=== PATIENT | male | born 1960 | race Caucasian/White ===

== ENCOUNTER 2016-09-13 10:47 | Emergency (ER) | payer MEDICARE, OTHER ==
[2016-09-13] MEDS ORDERED: MORPHINE SULFATE 4 MG/ML SYRINGE IV STA (10:59)
[2016-09-13] MEDS ORDERED: ONDANSETRON 4 MG/2 ML VIAL IVP STA ×2 (10:59→12:24)
[2016-09-13] MEDS ORDERED: SODIUM CHLORIDE 0.9% 1,000 ML IV STA ×2 (10:59)
--- NOTE | 2016-09-13 11:26 | ED ---
General Adult HPI - General Chief complaint: Abdominal Pain Stated complaint: ABDOMINAL PAIN Time Seen by Provider: 09/13/16 10:59 Source: patient, RN notes reviewed, old records reviewed Mode of arrival: ambulatory Limitations: no limitations - History of Present Illness Initial comments: This is a 56-year-old male the ER for evaluation.Patient presents for evaluation of the bowel pain, severe diffuse abdominal pain epigastric about pain. Been on and off for 2-3 days now. Episodic fever and chills. Positive nausea positive vomiting no diarrhea. No travel history no sick contacts. No other family members with similar symptoms. - Related Data Home Medications Medication Instructions Recorded Confirmed Hydrocodone/Acetaminophen [[place] 1 tab PO Q8H PRN 09/13/16 09/13/16 10-325] Venlafaxine HCl [Effexor XR] 75 mg PO DAILY 09/13/16 09/13/16 buPROPion HCL [Wellbutrin XL] 150 mg PO DAILY 09/13/16 09/13/16 Previous Rx's Medication Instructions Recorded ARIPiprazole [Abilify] 10 mg PO HS 30 Days 04/07/15 Mirtazapine [Remeron] 15 mg PO HS 30 Days 04/07/15 Allergies Allergy/AdvReac Type Severity Reaction Status Date / Time No Known Allergies Allergy Verified 09/13/16 11:17 Review of Systems ROS Statement: Those systems with pertinent positive or pertinent negative responses have been documented in the HPI. ROS Other: All systems not noted in ROS Statement are negative. Past Medical History Past Medical History: No Reported History History of Any Multi-Drug Resistant Organisms: None Reported Past Surgical History: Orthopedic Surgery Past Psychological History: Anxiety, Depression Smoking Status: Current every day smoker General Exam Limitations: no limitations General appearance: alert, in no apparent distress Head exam: Present: atraumatic, normocephalic, normal inspection Eye exam: Present: normal appearance, PERRL, EOMI. Absent: scleral icterus, conjunctival injection, periorbital swelling ENT exam: Present: normal exam, mucous membranes moist Neck exam: Present: normal inspection. Absent: tenderness, meningismus, lymphadenopathy Respiratory exam: Present: normal lung sounds bilaterally. Absent: respiratory distress, wheezes, rales, rhonchi, stridor Cardiovascular Exam: Present: regular rate, normal rhythm, normal heart sounds. Absent: systolic murmur, diastolic murmur, rubs, gallop, clicks GI/Abdominal exam: Present: soft, normal bowel sounds. Absent: distended, tenderness, guarding, rebound, rigid Extremities exam: Present: normal inspection, full ROM, normal capillary refill. Absent: tenderness, pedal edema, joint swelling, calf tenderness Back exam: Present: normal inspection Neurological exam: Present: alert, oriented X3, CN II-XII intact Psychiatric exam: Present: normal affect, normal mood Skin exam: Present: warm, dry, intact, normal color. Absent: rash Course Vital Signs 09/13/16 09/13/16 09/13/16 10:50 11:33 12:15 Temperature 97.4 F L 97.0 F L Pulse Rate 52 L 51 L 52 L Respiratory 20 16 18 Rate Blood Pressure 180/100 128/95 184/75 O2 Sat by Pulse 99 98 98 Oximetry 09/13/16 09/13/16 09/13/16 12:34 13:14 14:22 Temperature 97.8 F 98.2 F Pulse Rate 61 62 72 Respiratory 16 18 18 Rate Blood Pressure 140/78 97/56 96/51 O2 Sat by Pulse 95 95 95 Oximetry - Reevaluation(s) Reevaluation #1: 09/13/16 15:22 Patient's abdominal pain is at this time resolved Medical Decision Making - Medical Decision Making 56-year-old ER for evaluation. Patient was afebrile pain, dull pain nauseous improved at this time, CT abdomen and pelvis is negative for acute disease and patient can be discharged home - Lab Data Result diagrams: 09/13/16 11:05 09/13/16 11:05 Lab Results 09/13/16 09/13/16 09/13/16 Range/Units 11:05 11:05 11:05 WBC 9.0 (3.8-10.6) k/uL RBC 5.83 (4.30-5.90) m/uL Hgb 17.9 H (13.0-17.5) gm/dL Hct 50.6 (39.0-53.0) % MCV 86.8 (80.0-100.0) fL MCH 30.7 (25.0-35.0) pg MCHC 35.4 (31.0-37.0) g/dL RDW 12.8 (11.5-15.5) % Plt Count 204 (150-450) k/uL Neutrophils % 74 % Lymphocytes % 21 % Monocytes % 4 % Eosinophils % 0 % Basophils % 0 % Neutrophils # 6.7 (1.3-7.7) k/uL Lymphocytes # 1.9 (1.0-4.8) k/uL Monocytes # 0.4 (0-1.0) k/uL Eosinophils # 0.0 (0-0.7) k/uL Basophils # 0.0 (0-0.2) k/uL Sodium 145 (137-145) mmol/L Potassium 4.0 (3.5-5.1) mmol/L Chloride 105 (98-107) mmol/L Carbon Dioxide 25 (22-30) mmol/L Anion Gap 15 mmol/L BUN 19 (9-20) mg/dL Creatinine 1.15 (0.66-1.25) mg/dL Est GFR (MDRD) Af Amer >60 (>60 ml/min/1.73 sqM) Est GFR (MDRD) Non-Af >60 (>60 ml/min/1.73 sqM) Glucose 109 H (74-99) mg/dL Plasma Lactic Acid Rakesh (0.7-2.0) mmol/L Calcium 9.7 (8.4-10.2) mg/dL Total Bilirubin 1.0 (0.2-1.3) mg/dL AST 26 (17-59) U/L ALT 35 (21-72) U/L Alkaline Phosphatase 88 (38-126) U/L Total Creatine Kinase 205 H (55-170) U/L CK-MB (CK-2) 2.2 (0.0-2.4) ng/mL CK-MB (CK-2) Rel Index 1.1 Troponin I <0.012 (0.000-0.034) ng/mL Total Protein 7.9 (6.3-8.2) g/dL Albumin 4.9 (3.5-5.0) g/dL Amylase 44 (30-110) U/L Lipase 93 (23-300) U/L Urine Color Urine Appearance (Clear) Urine pH (5.0-8.0) Ur Specific [place] (1.001-1.035) Urine Protein (Negative) Urine Glucose (UA) (Negative) Urine Ketones (Negative) Urine Blood (Negative) Urine Nitrite (Negative) Urine Bilirubin (Negative) Urine Urobilinogen (<2.0) mg/dL Ur Leukocyte Esterase (Negative) Urine RBC (0-5) /hpf Urine WBC (0-5) /hpf Urine Mucus (None) /hpf Urine Opiates Screen (NotDetected) Ur Oxycodone Screen (NotDetected) Urine Methadone Screen (NotDetected) Ur Propoxyphene Screen (NotDetected) Ur Barbiturates Screen (NotDetected) U Tricyclic Antidepress (NotDetected) Ur Phencyclidine Scrn (NotDetected) Ur Amphetamines Screen (NotDetected) U Methamphetamines Scrn (NotDetected) U Benzodiazepines Scrn (NotDetected) Urine Cocaine Screen (NotDetected) U Marijuana (THC) Screen (NotDetected) 09/13/16 09/13/16 Range/Units 11:05 13:41 WBC (3.8-10.6) k/uL RBC (4.30-5.90) m/uL Hgb (13.0-17.5) gm/dL Hct (39.0-53.0) % MCV (80.0-100.0) fL MCH (25.0-35.0) pg MCHC (31.0-37.0) g/dL RDW (11.5-15.5) % Plt Count (150-450) k/uL Neutrophils % % Lymphocytes % % Monocytes % % Eosinophils % % Basophils % % Neutrophils # (1.3-7.7) k/uL Lymphocytes # (1.0-4.8) k/uL Monocytes # (0-1.0) k/uL Eosinophils # (0-0.7) k/uL Basophils # (0-0.2) k/uL Sodium (137-145) mmol/L Potassium (3.5-5.1) mmol/L Chloride (98-107) mmol/L Carbon Dioxide (22-30) mmol/L Anion Gap mmol/L BUN (9-20) mg/dL Creatinine (0.66-1.25) mg/dL Est GFR (MDRD) Af Amer (>60 ml/min/1.73 sqM) Est GFR (MDRD) Non-Af (>60 ml/min/1.73 sqM) Glucose (74-99) mg/dL Plasma Lactic Acid Rakesh 2.0 (0.7-2.0) mmol/L Calcium (8.4-10.2) mg/dL Total Bilirubin (0.2-1.3) mg/dL AST (17-59) U/L ALT (21-72) U/L Alkaline Phosphatase (38-126) U/L Total Creatine Kinase (55-170) U/L CK-MB (CK-2) (0.0-2.4) ng/mL CK-MB (CK-2) Rel Index Troponin I (0.000-0.034) ng/mL Total Protein (6.3-8.2) g/dL Albumin (3.5-5.0) g/dL Amylase (30-110) U/L Lipase (23-300) U/L Urine Color Yellow Urine Appearance Clear (Clear) Urine pH 6.5 (5.0-8.0) Ur Specific [place] 1.026 (1.001-1.035) Urine Protein 1+ H (Negative) Urine Glucose (UA) Negative (Negative) Urine Ketones 2+ H (Negative) Urine Blood Negative (Negative) Urine Nitrite Negative (Negative) Urine Bilirubin Negative (Negative) Urine Urobilinogen <2.0 (<2.0) mg/dL Ur Leukocyte Esterase Negative (Negative) Urine RBC <1 (0-5) /hpf Urine WBC 1 (0-5) /hpf Urine Mucus Few H (None) /hpf Urine Opiates Screen Detected H (NotDetected) Ur Oxycodone Screen Not Detected (NotDetected) Urine Methadone Screen Not Detected (NotDetected) Ur Propoxyphene Screen Not Detected (NotDetected) Ur Barbiturates Screen Not Detected (NotDetected) U Tricyclic Antidepress Not Detected (NotDetected) Ur Phencyclidine Scrn Not Detected (NotDetected) Ur Amphetamines Screen Not Detected (NotDetected) U Methamphetamines Scrn Not Detected (NotDetected) U Benzodiazepines Scrn Not Detected (NotDetected) Urine Cocaine Screen Detected H (NotDetected) U Marijuana (THC) Screen Detected H (NotDetected) - Radiology Data Radiology results: report reviewed (CT abdomen and pelvis is negative for acute disease), image reviewed Disposition Clinical Impression: Abdominal pain Disposition: HOME SELF-CARE Condition: Good Instructions: Abdominal Pain (ED) Referrals: Rajan Mackey MD [Primary Care Provider] - 1-2 days
--- NOTE | 2016-09-13 11:53 | XR ---
EXAMINATION TYPE: XR KUB DATE OF EXAM: 09/13/2016 11:42 AM CLINICAL HISTORY: Upper abdominal pain TECHNIQUE: 2 upright KUB images of the abdomen are obtained. COMPARISON: Abdominal x-ray and CT abdomen and pelvis April 26, 2013. FINDINGS: Scattered gas is seen in non-distended small bowel loops. Gas and fecal material is seen in non-distended colon. A few scattered pelvic phleboliths are present. No pneumoperitoneum is seen. Kristie ng bases are clear. Visualized osseous structures are intact. IMPRESSION: Overall nonobstructive bowel gas pattern.
[2016-09-13 11:54] LABS: Basophils % (A) 0 %; CH 31.3; CHCM 36.2; Eosinophils % (A) 0 %; HCT 50.6 % (39.0-53.0); HDW 2.65; HGB 17.9 gm/dL (13.0-17.5); Luc # (Auto) 0.12; Luc % (Auto) 1; Lymphocytes # (A) 1.9 k/uL (1.0-4.8); Lymphocytes % (A) 21 %; MCH 30.7 pg (25.0-35.0); MCHC 35.4 g/dL (31.0-37.0); MCV 86.8 fL (80.0-100.0); Mean Platelet Volume 7.4; Monocytes # (A) 0.4 k/uL (0-1.0); Monocytes % (A) 4 %; Neutrophils # (A) 6.7 k/uL (1.3-7.7); Neutrophils % (A) 74 %; RBC 5.83 m/uL (4.30-5.90); RDW 12.8 % (11.5-15.5); WBC (Perox) 8.76
[2016-09-13 12:00] LABS: ALT 35 U/L (21-72); AST 26 U/L (17-59); Alkaline Phosphatase 88 U/L (38-126); Amylase 44 U/L (30-110); Anion Gap 15 mmol/L; Blood Urea Nitrogen 19 mg/dL (9-20); Calcium 9.7 mg/dL (8.4-10.2); Carbon Dioxide 25 mmol/L (22-30); Chloride 105 mmol/L (98-107); Glucose 109 mg/dL (74-99); Non-African American GFR(MDRD) >60 (>60 ml/min/1.73 sqM); Sodium 145 mmol/L (137-145); Total Protein 7.9 g/dL (6.3-8.2)
[2016-09-13 12:12] LABS: Creatine Kinase 205 U/L (55-170)
[2016-09-13 12:23] LABS: Creatine Kinase MB 2.2 ng/mL (0.0-2.4); Troponin I <0.012 ng/mL (0.000-0.034)
[2016-09-13] MEDS ORDERED: RX INFO: IV CONTRAST WAS GIVEN 1 EACH MISC MISCELLANE PRN (12:24)
[2016-09-13] MEDS ORDERED: MORPHINE SULFATE 4 MG/ML SYRINGE IVP STA (12:24)
[2016-09-13] MEDS ORDERED: LORazepam 2 MG/ML SYRINGE IV STA (12:24)
[2016-09-13 13:15] VITALS: RESP 18
[2016-09-13 14:11] LABS: Appearance,Urine Clear (Clear); Bilirubin,Urine Negative (Negative); Glucose,Urine (UA) Negative (Negative); Ketones,Urine 2+ (Negative); Leukocyte Esterase,Urine Negative (Negative); Mucus,Urine Few /hpf; Nitrite,Urine Negative (Negative); PH, Urine 6.5 (5.0-8.0); Particle Count 4171; Protein,Urine 1+ (Negative); RBC,Urine <1 /hpf (0-5); Specific Gravity,Urine 1.026 (1.001-1.035); UA Billing (MACRO vs. MICRO) MICRO; Urobilinogen,Urine <2.0 mg/dL (<2.0); WBC,Urine 1 /hpf (0-5)
[2016-09-13 14:23] VITALS: TEMP 98.2
--- NOTE | 2016-09-13 15:14 | CT ---
EXAMINATION TYPE: CT abdomen pelvis w con DATE OF EXAM: 09/13/2016 COMPARISON: 04/26/2013 HISTORY: Epigastric pain with nausea CT DLP: 941.7 mGycm Automated exposure control for dose reduction was used. CONTRAST: CT scan of the abdomen pelvis is performed with IV Contrast, patient injected with 100 mL of Omnipaqu e 300. FINDINGS- LUNG BASES-subsegmental linear changes are most compatible with scar or atelectasis.. LIVER/GB- No gross abnormality is appreciated. PANCREAS- No gross abnormality is seen. SPLEEN- No gross abnormality is seen. ADRENALS- No gross abnormality is seen. KIDNEYS/BLADDER- no hydronephrosis nephrolithiasis or renal mass. BOWEL- no bowel dilatation. Normal appendix. Occasional diverticula noted. Mild wall thickening the distal sigmoid colon. Small hiatal hernia. LYMPH NODES- No greater than 1cm abdominal or pelvic lymph nodes are appreciated. OSSEOUS STRUCTURES-hypertrophic and degenerative change of the spine.. OTHER- atherosclerotic change of the vasculature. No evidence of aortic aneurysm. Mesenteric vascula ture enhances normally. There is a small amount of free fluid in the pelvis. IMPRESSION- 1. Diverticulosis of the sigmoid colon with trace amount of fluid in the pelvis. Wall is thickened wh ich may be on the basis of incomplete distention rather than a mild colitis or diverticulitis. Correl ate clinically.
[2016-09-13 16:14] VITALS: BP 108/57; PULSE 73
== END 2016-09-13 16:15 | disposition home or self-care (01) ==
LOC: EC 10:47
DX: R10.13 Epigastric pain (principal); R11.2 Nausea with vomiting, unspecified; R10.84 Generalized abdominal pain; R50.9 Fever, unspecified; F32.9 Major depressive disorder, single episode, unspecified; F41.9 Anxiety disorder, unspecified; F17.200 Nicotine dependence, unspecified, uncomplicated; Z79.899 Other long term (current) drug therapy
CPT/HCPCS: 36415; 80053; 82150; 82550; 82553; 83605; 83690; 84484; 85025; 81001; 80306; 87086; 74000; 74177; 99285; 96374; 96375 ×2; 96376 ×2; 96361 ×5; J2060; J2270; J2405; Q9967

== ENCOUNTER 2016-12-29 09:09 | Emergency (ER) | payer MEDICARE, OTHER ==
[2016-12-29] MEDS ORDERED: PANTOPRAZOLE 40 MG/10 ML VIAL IVP STA (09:44)
[2016-12-29] MEDS ORDERED: METOCLOPRAMIDE 5 MG/ML 2 ML VIAL IVP STA (09:44)
[2016-12-29] MEDS ORDERED: HYDROmorphone 1 MG/ML 1 ML SYRINGE IVP STA (09:44)
[2016-12-29] MEDS ORDERED: RX INFO: IV CONTRAST WAS GIVEN 1 EACH MISC MISCELLANE PRN (09:44)
[2016-12-29] MEDS ORDERED: SODIUM CHLORIDE 0.9% 1,000 ML IV STA ×2 (09:44→12:34)
--- NOTE | 2016-12-29 09:51 | ED ---
General Adult HPI - General Chief complaint: Abdominal Pain Stated complaint: Epigastric pain Time Seen by Provider: 12/29/16 09:35 Source: patient, family, RN notes reviewed Mode of arrival: wheelchair Limitations: no limitations - History of Present Illness Initial comments: Patient is a pleasant 6-year-old male presenting to the emergency Department with abdominal discomfort. Onset of symptoms was 3 days ago. Patient had a couple episodes of diarrhea however none since that time. Patient has nausea without vomiting. Patient has discomfort mostly in the epigastric region. There is some discomfort in the lower chest as well. Discomfort is moderate to severe. Patient states there may be some radiation towards the back. Patient questions if he has a stomach flu. - Related Data Home Medications Medication Instructions Recorded Confirmed Hydrocodone/Acetaminophen [[place] 1 tab PO Q8H PRN 09/13/16 12/29/16 10-325] Venlafaxine HCl [Effexor XR] 75 mg PO DAILY 09/13/16 12/29/16 buPROPion HCL [Wellbutrin XL] 150 mg PO DAILY 09/13/16 12/29/16 Previous Rx's Medication Instructions Recorded ARIPiprazole [Abilify] 10 mg PO HS 30 Days 04/07/15 Allergies Allergy/AdvReac Type Severity Reaction Status Date / Time No Known Allergies Allergy Verified 12/29/16 09:52 Review of Systems ROS Statement: Those systems with pertinent positive or pertinent negative responses have been documented in the HPI. ROS Other: All systems not noted in ROS Statement are negative. Constitutional: Denies: fever, chills Eyes: Denies: eye pain ENT: Denies: ear pain Respiratory: Denies: cough, dyspnea Cardiovascular: Reports: chest pain Endocrine: Denies: fatigue Gastrointestinal: Reports: abdominal pain, nausea, diarrhea. Denies: vomiting, constipation Genitourinary: Denies: dysuria Musculoskeletal: Denies: arthralgia Skin: Denies: rash Neurological: Denies: weakness Past Medical History Past Medical History: No Reported History Additional Past Medical History / Comment(s): chronic back pain History of Any Multi-Drug Resistant Organisms: None Reported Past Surgical History: Orthopedic Surgery Past Psychological History: Anxiety, Depression Smoking Status: Current every day smoker Past Alcohol Use History: None Reported Past Drug Use History: None Reported General Exam Limitations: no limitations General appearance: alert Head exam: Present: atraumatic Eye exam: Present: normal appearance, PERRL ENT exam: Present: normal oropharynx Neck exam: Present: normal inspection Respiratory exam: Present: normal lung sounds bilaterally Cardiovascular Exam: Present: regular rate, normal rhythm Expanded Peripheral pulses: 2+: Dorsalis Pedis (R), Dorsalis Pedis (L) GI/Abdominal exam: Present: soft, tenderness (Moderate epigastric tenderness to palpation. Mild diffuse tenderness.), normal bowel sounds. Absent: distended, guarding, rebound, rigid, pulsatile mass Extremities exam: Present: normal inspection. Absent: pedal edema, calf tenderness Back exam: Present: normal inspection. Absent: tenderness Neurological exam: Present: alert Psychiatric exam: Present: normal affect, normal mood Skin exam: Present: normal color Course Vital Signs 12/29/16 12/29/16 09:16 11:46 Temperature 97.5 F L Pulse Rate 54 L 64 Respiratory 20 17 Rate Blood Pressure 154/76 92/54 O2 Sat by Pulse 100 Oximetry EKG Findings - EKG Comments: EKG Findings:: Sinus bradycardia 52. GA 136. QRS 84. QT 462. QTC 429. Normal axis. Normal QRS. No acute ST change. Medical Decision Making - Medical Decision Making Onset of symptoms was 3 days ago. Patient clinically has symptoms consistent with CT findings of gastritis. Patient feels significantly better and is resting comfortably in bed. Patient will be provided further IV hydration. Case discussed in detail with Dr. Hoffmann who is familiar with this patient and would like to follow-up with the patient tomorrow if patient can be discharged. - Lab Data Result diagrams: 12/29/16 09:37 12/29/16 09:37 Lab Results 12/29/16 12/29/16 12/29/16 Range/Units 09:37 09:37 09:37 WBC 8.4 (3.8-10.6) k/uL RBC 5.73 (4.30-5.90) m/uL Hgb 17.5 (13.0-17.5) gm/dL Hct 51.2 (39.0-53.0) % MCV 89.4 (80.0-100.0) fL MCH 30.6 (25.0-35.0) pg MCHC 34.2 (31.0-37.0) g/dL RDW 13.0 (11.5-15.5) % Plt Count 239 (150-450) k/uL Neutrophils % 69 % Lymphocytes % 24 % Monocytes % 5 % Eosinophils % 0 % Basophils % 0 % Neutrophils # 5.8 (1.3-7.7) k/uL Lymphocytes # 2.0 (1.0-4.8) k/uL Monocytes # 0.4 (0-1.0) k/uL Eosinophils # 0.0 (0-0.7) k/uL Basophils # 0.0 (0-0.2) k/uL PT (9.0-12.0) sec INR (<1.2) APTT (22.0-30.0) sec Sodium 142 (137-145) mmol/L Potassium 4.9 (3.5-5.1) mmol/L Chloride 104 (98-107) mmol/L Carbon Dioxide 24 (22-30) mmol/L Anion Gap 14 mmol/L BUN 16 (9-20) mg/dL Creatinine 1.13 (0.66-1.25) mg/dL Est GFR (MDRD) Af Amer >60 (>60 ml/min/1.73 sqM) Est GFR (MDRD) Non-Af >60 (>60 ml/min/1.73 sqM) Glucose 109 H (74-99) mg/dL Plasma Lactic Acid Rakesh (0.7-2.0) mmol/L Calcium 9.9 (8.4-10.2) mg/dL Total Bilirubin 1.1 (0.2-1.3) mg/dL AST 27 (17-59) U/L ALT 45 (21-72) U/L Alkaline Phosphatase 89 (38-126) U/L Total Creatine Kinase 310 H (55-170) U/L CK-MB (CK-2) 2.8 H* (0.0-2.4) ng/mL CK-MB (CK-2) Rel Index 0.9 Troponin I <0.012 (0.000-0.034) ng/mL Total Protein 7.8 (6.3-8.2) g/dL Albumin 4.8 (3.5-5.0) g/dL Amylase 31 (30-110) U/L Lipase 92 (23-300) U/L Urine Color Urine Appearance (Clear) Urine pH (5.0-8.0) Ur Specific [place] (1.001-1.035) Urine Protein (Negative) Urine Glucose (UA) (Negative) Urine Ketones (Negative) Urine Blood (Negative) Urine Nitrite (Negative) Urine Bilirubin (Negative) Urine Urobilinogen (<2.0) mg/dL Ur Leukocyte Esterase (Negative) Urine RBC (0-5) /hpf Urine WBC (0-5) /hpf Urine Mucus (None) /hpf 12/29/16 12/29/16 12/29/16 Range/Units 09:37 10:00 10:28 WBC (3.8-10.6) k/uL RBC (4.30-5.90) m/uL Hgb (13.0-17.5) gm/dL Hct (39.0-53.0) % MCV (80.0-100.0) fL MCH (25.0-35.0) pg MCHC (31.0-37.0) g/dL RDW (11.5-15.5) % Plt Count (150-450) k/uL Neutrophils % % Lymphocytes % % Monocytes % % Eosinophils % % Basophils % % Neutrophils # (1.3-7.7) k/uL Lymphocytes # (1.0-4.8) k/uL Monocytes # (0-1.0) k/uL Eosinophils # (0-0.7) k/uL Basophils # (0-0.2) k/uL PT 10.5 (9.0-12.0) sec INR 1.0 (<1.2) APTT 22.7 (22.0-30.0) sec Sodium (137-145) mmol/L Potassium (3.5-5.1) mmol/L Chloride (98-107) mmol/L Carbon Dioxide (22-30) mmol/L Anion Gap mmol/L BUN (9-20) mg/dL Creatinine (0.66-1.25) mg/dL Est GFR (MDRD) Af Amer (>60 ml/min/1.73 sqM) Est GFR (MDRD) Non-Af (>60 ml/min/1.73 sqM) Glucose (74-99) mg/dL Plasma Lactic Acid Rakesh 2.3 H* (0.7-2.0) mmol/L Calcium (8.4-10.2) mg/dL Total Bilirubin (0.2-1.3) mg/dL AST (17-59) U/L ALT (21-72) U/L Alkaline Phosphatase (38-126) U/L Total Creatine Kinase (55-170) U/L CK-MB (CK-2) (0.0-2.4) ng/mL CK-MB (CK-2) Rel Index Troponin I (0.000-0.034) ng/mL Total Protein (6.3-8.2) g/dL Albumin (3.5-5.0) g/dL Amylase (30-110) U/L Lipase (23-300) U/L Urine Color Yellow Urine Appearance Clear (Clear) Urine pH 7.0 (5.0-8.0) Ur Specific [place] 1.023 (1.001-1.035) Urine Protein 1+ H (Negative) Urine Glucose (UA) Negative (Negative) Urine Ketones 3+ H (Negative) Urine Blood Negative (Negative) Urine Nitrite Negative (Negative) Urine Bilirubin Negative (Negative) Urine Urobilinogen 3.0 (<2.0) mg/dL Ur Leukocyte Esterase Negative (Negative) Urine RBC <1 (0-5) /hpf Urine WBC 2 (0-5) /hpf Urine Mucus Rare H (None) /hpf - Radiology Data Radiology results: report reviewed (Computed tomography scan abdomen pelvis shows diffuse gastric fold thickening correlate for possible gastritis. Some segments of colonic wall thickening. Bladder wall thickening.), image reviewed (Chest x-ray shows no acute process.) Disposition Clinical Impression: Abdominal pain Disposition: HOME SELF-CARE Condition: Stable Instructions: Abdominal Pain (ED) Additional Instructions: Please follow-up with primary care physician in the morning. Return for chest pain, increased abdominal pain, not tolerating fluids, vomiting, worsening symptoms or other concerns. Referrals: Rajan Mackey MD [Primary Care Provider] - 1-2 days Time of Disposition: 13:11
[2016-12-29 10:15] LABS: Basophils % (A) 0 %; CH 31.1; CHCM 34.9; Eosinophils % (A) 0 %; HCT 51.2 % (39.0-53.0); HDW 2.56; HGB 17.5 gm/dL (13.0-17.5); Luc # (Auto) 0.12; Luc % (Auto) 1; Lymphocytes % (A) 24 %; MCH 30.6 pg (25.0-35.0); MCHC 34.2 g/dL (31.0-37.0); MCV 89.4 fL (80.0-100.0); Mean Platelet Volume 7.5; Monocytes # (A) 0.4 k/uL (0-1.0); Monocytes % (A) 5 %; Neutrophils # (A) 5.8 k/uL (1.3-7.7); Neutrophils % (A) 69 %; RBC 5.73 m/uL (4.30-5.90); WBC 8.4 k/uL (3.8-10.6); WBC (Perox) 8.26
[2016-12-29 10:21] LABS: ALT 45 U/L (21-72); AST 27 U/L (17-59); Alkaline Phosphatase 89 U/L (38-126); Amylase 31 U/L (30-110); Anion Gap 14 mmol/L; Blood Urea Nitrogen 16 mg/dL (9-20); Calcium 9.9 mg/dL (8.4-10.2); Carbon Dioxide 24 mmol/L (22-30); Chloride 104 mmol/L (98-107); Glucose 109 mg/dL (74-99); Non-African American GFR(MDRD) >60 (>60 ml/min/1.73 sqM); Potassium 4.9 mmol/L (3.5-5.1); Sodium 142 mmol/L (137-145); Total Bilirubin 1.1 mg/dL (0.2-1.3); Total Protein 7.8 g/dL (6.3-8.2)
[2016-12-29 10:29] LABS: Partial Thromboplastin Time 22.7 sec (22.0-30.0); Prothrombin Time 10.5 sec (9.0-12.0)
[2016-12-29 10:34] LABS: Creatine Kinase 310 U/L (55-170)
[2016-12-29 10:45] LABS: Troponin I <0.012 ng/mL (0.000-0.034)
[2016-12-29 10:54] LABS: Appearance,Urine Clear (Clear); Bilirubin,Urine Negative (Negative); Glucose,Urine (UA) Negative (Negative); Ketones,Urine 3+ (Negative); Leukocyte Esterase,Urine Negative (Negative); Mucus,Urine Rare /hpf; Nitrite,Urine Negative (Negative); Particle Count 2813; Protein,Urine 1+ (Negative); RBC,Urine <1 /hpf (0-5); Specific Gravity,Urine 1.023 (1.001-1.035); UA Billing (MACRO vs. MICRO) MICRO; WBC,Urine 2 /hpf (0-5)
[2016-12-29 11:13] LABS: Creatine Kinase MB 2.8 ng/mL (0.0-2.4)
--- NOTE | 2016-12-29 11:38 | XR ---
EXAMINATION TYPE: XR chest 2V DATE OF EXAM: 12/29/2016 COMPARISON: 06/13/2013 HISTORY: Epigastric pain and vomiting for 2 days TECHNIQUE: Frontal and lateral views of the chest are obtained. FINDINGS: There is no focal air space opacity, pleural effusion, or pneumothorax seen. The cardiac silhouette size is within normal limits. The osseous structures are intact. Minimal degenerative ch anges of thoracic spine are noted. IMPRESSION: No acute cardiopulmonary process.
--- NOTE | 2016-12-29 11:40 | CT ---
EXAMINATION TYPE: CT abdomen pelvis w con DATE OF EXAM: 12/29/2016 COMPARISON: 09/13/2016 HISTORY: 56-year-old male with abdominal pain, vomiting for 3 days TECHNIQUE: Contiguous axial scanning of the abdomen and pelvis following administration of 100 ml Omn ipaque 300 IV contrast. Delayed images through the kidneys and coronal/sagittal reconstructions perf ormed. CT DLP: 1376 mGycm Automated exposure control for dose reduction was used. FINDINGS: The heart is normal size without pericardial effusion. Lung bases clear without pleural effusion. There appears to be mild diffuse gastric fold thickening and hyperemia. No focal liver lesion or biliary ductal dilatation. Portal venous system is patent. Gallbladder, adrenal glands, kidneys, spleen, and pancreas appear within normal limits. A prominent left periaortic lymph node measuring 1 cm, axial image 23 is unchanged suggesting a benig n etiology. Otherwise, no mesenteric or retroperitoneal lymphadenopathy. Retroaortic left renal vein. Mild atherosclerotic calcifications infrarenal abdominal aorta and iliac arteries. No dilated small bowel, free fluid, or free air. Segments of circumferential colonic wall thickening, such as within the proximal transverse colon, axial image 27 and then also at the proximal sigmoid c olon, axial image 58 are noted. Bladder nondistended but shows circumferential wall thickening. Prostate gland mildly prominent at 4. 1 cm wide. No abnormal fluid collection in the pelvis or pelvic lymphadenopathy. Bones: Mild degenerative changes at the hips. Additional degenerative changes mid to lower lumbar spi ne. No osseous destructive process. IMPRESSION: 1. MILD DIFFUSE GASTRIC FOLD THICKENING AND SUBMUCOSAL HYPEREMIA. CORRELATE FOR POSSIBLE GASTRITIS. 2. COUPLE SEGMENTS OF COLONIC WALL THICKENING SUCH IN THE PROXIMAL TRANSVERSE AND PROXIMAL SIGMOID COLON COULD REPRESENT NONSPECIFIC COLITIS. THE PATIENT SHOULD HAVE ROUTINE COLONOSCOPY IF NOT ALREAD Y PERFORMED. 3. CIRCUMFERENTIAL BLADDER WALL THICKENING COULD REPRESENT CHRONIC BLADDER HYPERTROPHY OR CYSTITIS.
[2016-12-29 13:10] VITALS: BP 103/64; PULSE 75; RESP 18; TEMP 98.3
== END 2016-12-29 13:40 | disposition home or self-care (01) ==
LOC: EC 09:09
DX: R10.13 Epigastric pain (principal); K31.89 Other diseases of stomach and duodenum; K63.89 Other specified diseases of intestine; N32.89 Other specified disorders of bladder; R07.89 Other chest pain; R11.0 Nausea; F32.9 Major depressive disorder, single episode, unspecified; F41.9 Anxiety disorder, unspecified; F17.200 Nicotine dependence, unspecified, uncomplicated; Z79.899 Other long term (current) drug therapy
CPT/HCPCS: 99284 ×2; 96374 ×2; 96375 ×3; 96361 ×5; 36415; 93005; 80053; 82150; 82550; 82553; 83605; 83690; 84484; 85025; 85610; 85730; 81001; 71020; 74177; J2765; J1170; Q9967; C9113

== ENCOUNTER → 2017-10-20 | Outpatient (CLI) | payer MEDICARE, OTHER ==
--- NOTE | 2017-10-20 11:48 | NM ---
EXAMINATION TYPE: NM hepatobiliary w EF DATE OF EXAM: 10/20/2017 COMPARISON: NONE HISTORY: Pain TECHNIQUE: After the intravenous administration of 5.2 mCi Tc 99m Mebrofenin hepatobiliary scintigrap hy is performed. Immediate images post injection. FINDINGS: There is satisfactory initial accumulation of tracer by the liver. The gallbladder is visualized wit hin 6 minutes. The small bowel activity is noted within 16 minutes. At one hour 8 ounces of oral en sure plus is given to mimic CCK and gallbladder ejection fraction is calculated at 79 %, in the wilver l range. Therefore there is no scintigraphic evidence of cystic or common bile duct obstruction to s uggest acute cholecystitis or gallbladder dyskinesia. IMPRESSION: Exam is within normal limits.
== END | disposition home or self-care (01) ==
LOC: RADNMMAIN 08:55
PROVIDERS: ATTEND Family Medicine
DX: R10.11 Right upper quadrant pain (principal)
CPT/HCPCS: 78226; A9537

== ENCOUNTER → 2018-04-26 | Outpatient (CLI) | payer MEDICARE, OTHER ==
--- NOTE | 2018-04-26 14:22 | CT ---
EXAMINATION TYPE: CT chest wo con DATE OF EXAM: 04/26/2018 COMPARISON: None HISTORY: hemoptysis CT DLP: 385.1 mGycm, Automated exposure control for dose reduction was used. CONTRAST: Performed injected with 0 mL of Isovue 300. TECHNIQUE: Axial images were obtained at 5 mm thick sections. Reconstructed images are reviewed on [employer] computer in the coronal plane. FINDINGS: Portion of the thyroid visualized is normal. No suspicious lung nodules or focal infiltrates are present. No enlarged mediastinal or hilar adenopathy is evident. The ascending aorta diameter at the level o f the main pulmonary artery is 3.6 cm. The main pulmonary artery diameter at the bifurcation is 2.[address] sections are obtained through the upper abdomen. Abdomen is essentially unremarkable. IMPRESSIONS: 1. Normal Chest CT.
== END | disposition home or self-care (01) ==
LOC: RADCTMAIN 11:08
PROVIDERS: ATTEND Family Medicine
DX: R04.2 Hemoptysis (principal)
CPT/HCPCS: 71250

== ENCOUNTER 2018-08-29 12:14 | Emergency (ER) | payer MEDICARE, OTHER ==
[2018-08-29] MEDS ORDERED: SODIUM CHLORIDE 0.9% 1,000 ML IV STA ×2 (12:41)
[2018-08-29] MEDS ORDERED: ONDANSETRON 4 MG/2 ML VIAL IVP STA (12:41)
[2018-08-29] MEDS ORDERED: HYDROmorphone 0.5 MG/0.5 ML SYRINGE IVP STA (12:41)
--- NOTE | 2018-08-29 12:47 | ED ---
General Adult HPI - General Chief complaint: Nausea/Vomiting/Diarrhea Stated complaint: Nausea/back pain Time Seen by Provider: 08/29/18 12:24 Source: patient, RN notes reviewed, old records reviewed Mode of arrival: ambulatory Limitations: no limitations - History of Present Illness Initial comments: 50-year-old male presents today for evaluation for lower abdominal and lower back pain, as well as multiple episodes of dry heaving and vomiting. Due to bowel movement today which she said was normal. No bloody stools or bloody emesis noted. Patient states that he has had a history of kidney stonesfeels different than previous kidney stone pain. Patient states that he's had similar episodes as well as once or twice a month for the past year. He's had a workup with gallbladder nuclear med scan, as well as a CT of his chest. Patient also states that his symptoms today include bilateral ankle swelling. Patient states that he said no fall or trauma to the associated with this back pain. He denies any chest pain or shortness of breath. - Related Data Home Medications Medication Instructions Recorded Confirmed Hydrocodone/Acetaminophen [[place] 1 tab PO Q8H PRN 09/13/16 08/29/18 10-325] Venlafaxine HCl [Effexor XR] 75 mg PO DAILY 09/13/16 08/29/18 buPROPion HCL [Wellbutrin XL] 150 mg PO DAILY 09/13/16 08/29/18 Previous Rx's Medication Instructions Recorded ARIPiprazole [Abilify] 10 mg PO HS 30 Days tab 04/07/15 Ciprofloxacin HCl [Cipro] 500 mg PO BID 5 Days #10 tab 08/29/18 Ondansetron Odt [Zofran Odt] 4 mg PO Q8HR PRN #20 tab 08/29/18 metroNIDAZOLE [Flagyl] 500 mg PO TID #15 08/29/18 Allergies Allergy/AdvReac Type Severity Reaction Status Date / Time No Known Allergies Allergy Verified 08/29/18 13:22 Review of Systems ROS Statement: Those systems with pertinent positive or pertinent negative responses have been documented in the HPI. ROS Other: All systems not noted in ROS Statement are negative. Past Medical History Past Medical History: No Reported History Additional Past Medical History / Comment(s): chronic back pain History of Any Multi-Drug Resistant Organisms: None Reported Past Surgical History: Orthopedic Surgery Past Psychological History: Anxiety, Depression Smoking Status: Current every day smoker Past Alcohol Use History: None Reported Past Drug Use History: None Reported General Exam - General Exam Comments Initial Comments: 58-year-old male. Alert and oriented. Patient appears in moderate discomfort. Limitations: no limitations General appearance: alert, in no apparent distress Head exam: Present: atraumatic, normocephalic, normal inspection Eye exam: Present: normal appearance, PERRL, EOMI. Absent: scleral icterus, conjunctival injection, periorbital swelling ENT exam: Present: normal exam, mucous membranes moist Neck exam: Present: normal inspection. Absent: tenderness, meningismus, lymphadenopathy Respiratory exam: Present: normal lung sounds bilaterally. Absent: respiratory distress, wheezes, rales, rhonchi, stridor Cardiovascular Exam: Present: regular rate, normal rhythm, normal heart sounds. Absent: systolic murmur, diastolic murmur, rubs, gallop, clicks GI/Abdominal exam: Present: soft, tenderness (Lower abdominal tenderness.), normal bowel sounds. Absent: distended, guarding, rebound, rigid Extremities exam: Present: normal inspection, full ROM, normal capillary refill. Absent: tenderness, pedal edema, joint swelling, calf tenderness Back exam: Present: normal inspection Neurological exam: Present: alert, oriented X3, CN II-XII intact Psychiatric exam: Present: normal affect, normal mood Skin exam: Present: warm, dry, intact, normal color. Absent: rash Course Vital Signs 08/29/18 08/29/18 08/29/18 12:14 12:26 12:30 Temperature 96.7 F L Pulse Rate 68 Respiratory 18 Rate Blood Pressure 104/65 117/81 O2 Sat by Pulse 97 93 L 96 Oximetry 08/29/18 08/29/18 08/29/18 13:00 13:30 14:00 Temperature Pulse Rate Respiratory Rate Blood Pressure 108/77 106/70 110/66 O2 Sat by Pulse Oximetry 08/29/18 08/29/18 08/29/18 14:30 15:00 15:30 Temperature Pulse Rate Respiratory Rate Blood Pressure 124/76 115/70 110/67 O2 Sat by Pulse Oximetry 08/29/18 08/29/18 08/29/18 16:00 16:23 16:30 Temperature Pulse Rate 55 L Respiratory 18 Rate Blood Pressure 111/67 111/67 O2 Sat by Pulse 86 L 98 91 L Oximetry 08/29/18 17:39 Temperature 97.0 F L Pulse Rate 63 Respiratory 16 Rate Blood Pressure 131/82 O2 Sat by Pulse 99 Oximetry Medical Decision Making - Medical Decision Making Patient is a 58 year old male presents for vomiting and lower abdominal and back pain for 3 days. Labs were reviewed. Negative for acute process. CT completed showing evdience of colitis, and pancreatic cyst and hemangioma. Patient has normal lipiase and amylase. WBC and HCG are normal. Doscissed patient needs PCP and GI follow up. Will start patient on cipro and flagyl for colitis. Discussed CT findings and MRCP follow up. - Lab Data Result diagrams: 08/29/18 13:50 08/29/18 13:50 Lab Results 08/29/18 08/29/18 08/29/18 Range/Units 13:50 13:50 13:50 WBC 6.2 (3.8-10.6) k/uL RBC 4.84 (4.30-5.90) m/uL Hgb 14.1 (13.0-17.5) gm/dL Hct 41.5 (39.0-53.0) % MCV 85.7 (80.0-100.0) fL MCH 29.1 (25.0-35.0) pg MCHC 34.0 (31.0-37.0) g/dL RDW 14.7 (11.5-15.5) % Plt Count 187 (150-450) k/uL Neutrophils % 70 % Lymphocytes % 25 % Monocytes % 3 % Eosinophils % 0 % Basophils % 0 % Neutrophils # 4.3 (1.3-7.7) k/uL Lymphocytes # 1.6 (1.0-4.8) k/uL Monocytes # 0.2 (0-1.0) k/uL Eosinophils # 0.0 (0-0.7) k/uL Basophils # 0.0 (0-0.2) k/uL Sodium 142 (137-145) mmol/L Potassium 3.8 (3.5-5.1) mmol/L Chloride 110 H (98-107) mmol/L Carbon Dioxide 27 (22-30) mmol/L Anion Gap 5 mmol/L BUN 17 (9-20) mg/dL Creatinine 0.82 (0.66-1.25) mg/dL Est GFR (CKD-EPI)AfAm >90 (>60 ml/min/1.73 sqM) Est GFR (CKD-EPI)NonAf >90 (>60 ml/min/1.73 sqM) Glucose 91 (74-99) mg/dL Calcium 8.6 (8.4-10.2) mg/dL Total Bilirubin 0.9 (0.2-1.3) mg/dL AST 20 (17-59) U/L ALT 27 (21-72) U/L Alkaline Phosphatase 62 (38-126) U/L Troponin I <0.012 (0.000-0.034) ng/mL Total Protein 6.6 (6.3-8.2) g/dL Albumin 4.0 (3.5-5.0) g/dL Amylase 40 (30-110) U/L Lipase 44 (23-300) U/L Urine Color Urine Appearance (Clear) Urine pH (5.0-8.0) Ur Specific [place] (1.001-1.035) Urine Protein (Negative) Urine Glucose (UA) (Negative) Urine Ketones (Negative) Urine Blood (Negative) Urine Nitrite (Negative) Urine Bilirubin (Negative) Urine Urobilinogen (<2.0) mg/dL Ur Leukocyte Esterase (Negative) 08/29/18 Range/Units 16:45 WBC (3.8-10.6) k/uL RBC (4.30-5.90) m/uL Hgb (13.0-17.5) gm/dL Hct (39.0-53.0) % MCV (80.0-100.0) fL MCH (25.0-35.0) pg MCHC (31.0-37.0) g/dL RDW (11.5-15.5) % Plt Count (150-450) k/uL Neutrophils % % Lymphocytes % % Monocytes % % Eosinophils % % Basophils % % Neutrophils # (1.3-7.7) k/uL Lymphocytes # (1.0-4.8) k/uL Monocytes # (0-1.0) k/uL Eosinophils # (0-0.7) k/uL Basophils # (0-0.2) k/uL Sodium (137-145) mmol/L Potassium (3.5-5.1) mmol/L Chloride (98-107) mmol/L Carbon Dioxide (22-30) mmol/L Anion Gap mmol/L BUN (9-20) mg/dL Creatinine (0.66-1.25) mg/dL Est GFR (CKD-EPI)AfAm (>60 ml/min/1.73 sqM) Est GFR (CKD-EPI)NonAf (>60 ml/min/1.73 sqM) Glucose (74-99) mg/dL Calcium (8.4-10.2) mg/dL Total Bilirubin (0.2-1.3) mg/dL AST (17-59) U/L ALT (21-72) U/L Alkaline Phosphatase (38-126) U/L Troponin I (0.000-0.034) ng/mL Total Protein (6.3-8.2) g/dL Albumin (3.5-5.0) g/dL Amylase (30-110) U/L Lipase (23-300) U/L Urine Color Light Yellow Urine Appearance Clear (Clear) Urine pH 6.5 (5.0-8.0) Ur Specific [place] 1.012 (1.001-1.035) Urine Protein Negative (Negative) Urine Glucose (UA) Negative (Negative) Urine Ketones Negative (Negative) Urine Blood Negative (Negative) Urine Nitrite Negative (Negative) Urine Bilirubin Negative (Negative) Urine Urobilinogen <2.0 (<2.0) mg/dL Ur Leukocyte Esterase Negative (Negative) 08/29/18 13:52 EKG performed at 1300 shows normal sinus rhythm with posterior fascicular block. Abnormal EKG. Ventricular rate of 63 bpm. Verbal is 132 ms. QRS duration 88 ms. QT QTc is 420/429 ms. - Radiology Data Radiology results: report reviewed Long segment bowel wall thickening and vasa recta engorgement of the sigmoid colon relate to non specific acute colitis typically resolve infectious or inflammatory etiology. No abscess. few diverticulitis seen. No focal colonic fat stranding. New 5mm cystic lesion of distal pancreas. MRCP can further evaluated. New arteries enhancing hepatic focus could represent arterial portages shunt or flashing filling hemangioma however this i s also new from the prior of the 2017 combination with finding #2, to evaluate MRCP with and without contrast to be performed. Disposition Clinical Impression: Colitis, Pancreas cyst, Hemangioma Disposition: HOME SELF-CARE Condition: Good Instructions (If sedation given, give patient instructions): Colitis (ED) Additional Instructions: Patient has a close follow-up with primary care physician. Metabolic with GI specialty as well. Take the medications as prescribed. Prescriptions: Ciprofloxacin HCl [Cipro] 500 mg PO BID 5 Days #10 tab metroNIDAZOLE [Flagyl] 500 mg PO TID #15 Ondansetron Odt [Zofran Odt] 4 mg PO Q8HR PRN #20 tab PRN Reason: Nausea Is patient prescribed a controlled substance at d/c from ED?: No Referrals: Elvis Hoffmann Jr, DO [Primary Care Provider] - 1-2 days Boris Soares MD [STAFF PHYSICIAN] - 1-2 days Time of Disposition: 17:20
[2018-08-29 14:38] LABS: Basophils % (A) 0 %; Eosinophils % (A) 0 %; HCT 41.5 % (39.0-53.0); HGB 14.1 gm/dL (13.0-17.5); Lymphocytes # (A) 1.6 k/uL (1.0-4.8); Lymphocytes % (A) 25 %; MCH 29.1 pg (25.0-35.0); MCV 85.7 fL (80.0-100.0); Mean Platelet Volume 7.7; Monocytes # (A) 0.2 k/uL (0-1.0); Monocytes % (A) 3 %; Neutrophils # (A) 4.3 k/uL (1.3-7.7); Neutrophils % (A) 70 %; Platelet Count 187 k/uL (150-450); RBC 4.84 m/uL (4.30-5.90); RDW 14.7 % (11.5-15.5); WBC 6.2 k/uL (3.8-10.6)
--- NOTE | 2018-08-29 14:45 | XR ---
KUB HISTORY: Nausea vomiting and diarrhea Frontal KUB-2 images Correlation to prior KUB 09/13/2016, CT 12/29/2016 Lung bases are clear. There is no evident bowel obstruction or pneumoperitoneum. Degenerative disc ch anges are present in the spine. Calcifications in the pelvis again noted. IMPRESSION: Nonspecific abdomen.
[2018-08-29 14:46] LABS: ALT 27 U/L (21-72); AST 20 U/L (17-59); Alkaline Phosphatase 62 U/L (38-126); Amylase 40 U/L (30-110); Anion Gap 5 mmol/L; Blood Urea Nitrogen 17 mg/dL (9-20); Calcium 8.6 mg/dL (8.4-10.2); Carbon Dioxide 27 mmol/L (22-30); Chloride 110 mmol/L (98-107); Glucose 91 mg/dL (74-99); Lipase 44 U/L (23-300); Potassium 3.8 mmol/L (3.5-5.1); Sodium 142 mmol/L (137-145); Total Bilirubin 0.9 mg/dL (0.2-1.3); Total Protein 6.6 g/dL (6.3-8.2)
--- NOTE | 2018-08-29 16:34 | CT ---
EXAMINATION TYPE: CT abdomen pelvis w con DATE OF EXAM: 08/29/2018 COMPARISON: 12/29/2016 CT abdomen pelvis HISTORY: Nausea, vomiting and abdominal pain CT DLP: 1019.5 mGycm, Automated Exposure Control for Dose Reduction was Utilized. CONTRAST: CT scan of the abdomen and pelvis is performed with oral and with IV Contrast, patient injected with 100 mL of Isovue 300. FINDINGS: LUNG BASES: Minimal dependent subsegmental bibasilar atelectasis. LIVER/GB: There is an arterially enhancing 5 mm focus in the inferior margin of segment 8 of the live r in a subcapsular location on image 17 and 18. This could represent a flash filling hemangioma or ar terial portal shunt. However this lesion appears new and could be further evaluated with MRI abdomen there is clinical concern Less likely this could represent a more ominous lesion. There is hepatomega ly. No radiopaque calculi in the gallbladder. PANCREAS: There is a 5 mm cystic lesion in the distal pancreatic body towards the pancreatic tail mar ked on image 23 of series 201. No peripancreatic fat stranding. No main pancreatic ductal dilatation. This pancreatic lesion appears new SPLEEN: No splenomegaly. ADRENALS: No nodularity or thickening. KIDNEYS: Kidneys enhance and excrete symmetrically without hydronephrosis. Note is made of a retroaor tic left renal vein. BOWEL: There is long segment bowel wall thickening of the sigmoid colon and prominence of the surroun ding vasa recta. Numerous diverticula are seen without focal pericolonic fat stranding. No dilated la rge or small bowel are noted. Appendix is air-filled and within normal limits. No pericolonic abscess . Stomach is incompletely distended and suboptimally evaluated. PROSTATE/SEMINAL VESICLES: No gross abnormality seen. LYMPH NODES: No greater than 1cm abdominal or pelvic lymph nodes are appreciated. OSSEOUS STRUCTURES: Mild multilevel degenerative disc disease of the spine. OTHER: Moderate to severe atherosclerosis is noted of the abdominal aorta and its branches. Right ing uinal canal is patulous. IMPRESSION: 1. Long segment bowel wall thickening and vasa recta engorgement of the sigmoid colon relate to nonsp ecific acute colitis typically resolve infectious or inflammatory etiology. No pericolonic abscess. F ew diverticula are seen although no focal colonic fat stranding is noted. 2. New 5 mm cystic pancreatic lesion of the distal pancreatic body in comparison to exam of 2017. MRC P could further evaluate this finding. 3. New arterial enhancing hepatic focus that could represent an arterial portal shunt or flash fillin g hemangioma however this is also new from the prior of 2017 in combination with finding # 2, to eval uate both findings MRCP with and without contrast could be performed.
[2018-08-29 17:04] LABS: Appearance,Urine Clear (Clear); Bilirubin,Urine Negative (Negative); Blood,Urine Negative (Negative); Color,Urine Light Yellow; Glucose,Urine (UA) Negative (Negative); Ketones,Urine Negative (Negative); Leukocyte Esterase,Urine Negative (Negative); Nitrite,Urine Negative (Negative); PH, Urine 6.5 (5.0-8.0); Protein,Urine Negative (Negative); Specific Gravity,Urine 1.012 (1.001-1.035); Urobilinogen,Urine <2.0 mg/dL (<2.0)
[2018-08-29] MEDS ORDERED: CIPROFLOXACIN HCL 500 MG TAB PO STA (17:23)
[2018-08-29] MEDS ORDERED: metroNIDAZOLE 500 MG TAB PO STA (17:23)
[2018-08-29 17:40] VITALS: BP 131/82; PULSE 63; RESP 16; TEMP 97
== END 2018-08-29 17:36 | disposition home or self-care (01) ==
LOC: EC 12:14
DX: K52.9 Noninfective gastroenteritis and colitis, unspecified (principal); K86.2 Cyst of pancreas; D18.00 Hemangioma unspecified site; I44.5 Left posterior fascicular block; R94.31 Abnormal electrocardiogram [ECG] [EKG]; M79.89 Other specified soft tissue disorders; F32.9 Major depressive disorder, single episode, unspecified; F41.9 Anxiety disorder, unspecified; F17.200 Nicotine dependence, unspecified, uncomplicated; Z79.899 Other long term (current) drug therapy
CPT/HCPCS: 36415; 93005; 80053; 82150; 83690; 84484; 85025; 81003; 74018; 74177; 99285; 96374; 96375; 96361 ×5; J2405; J1170; Q9967

== ENCOUNTER → 2018-09-07 | Outpatient (CLI) | payer MEDICARE ==
--- NOTE | 2018-09-07 15:49 | MR ---
EXAMINATION TYPE: MR MRCP DATE OF EXAM: 09/07/2018 COMPARISON: CT abdomen pelvis dated 08/29/2018 HISTORY: Abnormal findings on diagnostic imaging TECHNIQUE: Standard MRCP was performed per department protocol without intravenous contrast using donis e-of-flight imaging. FINDINGS: At the location of the previously seen 5 mm arterially enhancing focus within segment 8 of the liver in a subcapsular location there is a approximately 6 mm T2 hyperintense lesion on image 29 of T2 axial fat sat images favoring a small hemangioma. No other discrete hepatic lesion is seen on T 2-weighted and T1-weighted imaging. No significant intrahepatic biliary ductal dilatation is present. No radiopaque calculi are seen within the gallbladder. The common bile duct is within normal limits measuring 5 mm. The main pancreatic duct is also within normal limits measuring approximately 1.7 cm of the pancreatic body. In the distal pancreatic body there is a 3 mm T2 hyperintense and T1 hypointe nse lesion that although does not demonstrate clear communication with the main pancreatic duct this remains favored to represent a very small side branch IPMN. The adrenal glands, spleen, and kidneys are unremarkable. Note is again made of a retroaortic left re nal vein. No adenopathy is seen within the abdomen. No hydronephrosis is noted. No dilated large or s mall bowel. The sigmoid colon is not included in the given [id number] to reevaluate the previously seen sigmoid pathology on the prior CT of 08/29/2018. Atherosclerosis is again noted of the abdominal aorta. Degenerative changes of the spine are present. There is no signal dropout on out of phase imag ing of the liver and therefore no hepatic steatosis is seen. IMPRESSION: 1. The previously seen hepatic lesion on the exam of 08/29/2018 likely represents a small hemangioma. A lthough contrast was not utilized to confirm this finding T2 hyperintensity does favor benign hemangi nilton. 2. Cystic pancreatic lesion measures only 3 mm and is favored to represent a side branch I p.m. and f or which annual surveillance is recommended.
== END | disposition home or self-care (01) ==
LOC: RADMRIMAIN 14:38
PROVIDERS: ATTEND Family Medicine
DX: K76.9 Liver disease, unspecified (principal); K86.2 Cyst of pancreas
CPT/HCPCS: 74181

== ENCOUNTER 2018-10-05 09:28 | Emergency (ER) | payer MEDICARE ==
[2018-10-05 09:34] VITALS: RESP 18
[2018-10-05] MEDS ORDERED: SODIUM CHLORIDE 0.9% 1,000 ML IV STA (10:20)
[2018-10-05] MEDS ORDERED: KETOROLAC 30 MG/ML 1 ML VIAL IVP STA (10:20)
[2018-10-05] MEDS ORDERED: ONDANSETRON 4 MG/2 ML VIAL IVP STA (10:20)
--- NOTE | 2018-10-05 10:25 | ED ---
Nausea/Vomiting/Diarrhea HPI - General Chief complaint: Nausea/Vomiting/Diarrhea Stated complaint: Vomiting, back pain Time Seen by Provider: 10/05/18 10:03 Source: patient Mode of arrival: wheelchair Limitations: no limitations - History of Present Illness Initial comments: Patient is a 58-year-old male presenting to the emergency Department with compl aints of nausea, vomiting and back pain since this morning. Patient states he has had these same symptoms before that come on suddenly. Patient recently had a MRCP performed due to a hepatic and pancreatic lesion that was found in CT last month. The MRCP on 09/07/2018 showed hepatic lesion is likely a small benign hemangioma and a cystic pancreatic lesion measuring 3 mm and they recommended annual surveillance. Patient admits to generalized abdominal tenderness. Patient has been unable to eat or drink anything since morning and states that his back pain is on the lumbar area and is painful to touch. Patient is denying any chest pain, shortness of breath, cough, fever, chills. Patient's last BM was this morning and was normal. No other complaints at this time. - Related Data Home Medications Medication Instructions Recorded Confirmed Hydrocodone/Acetaminophen [[place] 1 tab PO Q8H PRN 09/13/16 10/05/18 10-325] Venlafaxine HCl [Effexor XR] 75 mg PO DAILY 09/13/16 10/05/18 buPROPion HCL [Wellbutrin XL] 150 mg PO DAILY 09/13/16 10/05/18 Previous Rx's Medication Instructions Recorded ARIPiprazole [Abilify] 10 mg PO HS 30 Days tab 04/07/15 Ondansetron Odt [Zofran Odt] 4 mg PO Q8HR PRN #20 tab 08/29/18 Metoclopramide [Reglan] 10 mg PO TID PRN #15 tab 10/05/18 Allergies Allergy/AdvReac Type Severity Reaction Status Date / Time No Known Allergies Allergy Verified 10/05/18 10:08 Review of Systems ROS Statement: Those systems with pertinent positive or pertinent negative responses have been documented in the HPI. ROS Other: All systems not noted in ROS Statement are negative. Past Medical History Past Medical History: No Reported History Additional Past Medical History / Comment(s): chronic back pain History of Any Multi-Drug Resistant Organisms: None Reported Past Surgical History: Orthopedic Surgery Past Psychological History: Anxiety, Depression Smoking Status: Current every day smoker Past Alcohol Use History: None Reported Past Drug Use History: None Reported General Exam - General Exam Comments Initial Comments: GENERAL: Well-nourished and in no acute distress, but appears to be in pain. HEAD: Atraumatic, normocephalic. EYES: Pupils equal round and reactive to light, extraocular movements intact, sclera anicteric, conjunctiva are normal. ENT: TMs normal, nares patent, oropharynx clear without exudates. Moist mucous membranes. NECK: Normal range of motion, supple without lymphadenopathy or JVD. LUNGS: Breath sounds clear to auscultation bilaterally and equal. No wheezes rales or rhonchi. HEART: Regular rate and rhythm without murmurs, rubs or gallops. ABDOMEN: Generalized abdominal tenderness. Soft, normoactive bowel sounds. No guarding, no rebound. No masses appreciated. : Deferred EXTREMITIES: Normal range of motion, no pitting or edema. No clubbing or cyanosis. Pain with palpation of lumbar paraspinals, bilateral NEUROLOGICAL: Cranial nerves II through XII grossly intact. Normal speech, normal gait. PSYCH: Normal mood, normal affect. SKIN: Warm, Dry, normal turgor, no rashes or lesions noted. Limitations: no limitations Course Vital Signs 10/05/18 10/05/18 10/05/18 09:32 11:48 12:51 Temperature 98.1 F 98.2 F Pulse Rate 60 56 L 67 Respiratory 18 18 18 Rate Blood Pressure 143/88 133/97 137/87 O2 Sat by Pulse 99 100 98 Oximetry Medical Decision Making - Medical Decision Making 58-year-old male presents to ER with complaints of generalized abdominal tenderness, nausea, vomiting since this morning as well as low back pain. Patient was here in the ER last month with similar complaint. CT was performed at that time and showed a pancreatic and hepatic lesion recommended follow-up with MRCP. Status post performed a week later showed hepatic lesion is likely a small benign hemangioma and a cystic pancreatic lesion measuring 3 mm and they recommended annual surveillance. On exam patient has generalized abdominal tenderness and pain with palpation over the lumbar paraspinals. Patient admits to taking [place]'s for his back pain. CBC, CMP, UA are all within normal limits. Lactic gases 2.0. KUB shows no acute abnormalities in the abdomen. Patient is feeling improvement after nausea and pain medication. After discussion with patient, patient is in agreement to be discharged.. Patient will follow up with GI doctor if symptoms continue. Return parameters were discussed with the patient and he verbalized understanding. Case was discussed with Dr. Mahajan and he is in agreement with this plan. - Lab Data Result diagrams: 10/05/18 09:55 10/05/18 09:55 Lab Results 10/05/18 10/05/18 10/05/18 Range/Units 09:55 09:55 09:55 WBC 7.8 (3.8-10.6) k/uL RBC 5.91 H (4.30-5.90) m/uL Hgb 17.4 D (13.0-17.5) gm/dL Hct 50.9 (39.0-53.0) % MCV 86.2 (80.0-100.0) fL MCH 29.5 (25.0-35.0) pg MCHC 34.2 (31.0-37.0) g/dL RDW 15.2 (11.5-15.5) % Plt Count 215 (150-450) k/uL Neutrophils % 76 % Lymphocytes % 19 % Monocytes % 3 % Eosinophils % 0 % Basophils % 0 % Neutrophils # 5.9 (1.3-7.7) k/uL Lymphocytes # 1.5 (1.0-4.8) k/uL Monocytes # 0.2 (0-1.0) k/uL Eosinophils # 0.0 (0-0.7) k/uL Basophils # 0.0 (0-0.2) k/uL Sodium 145 (137-145) mmol/L Potassium 4.2 (3.5-5.1) mmol/L Chloride 104 (98-107) mmol/L Carbon Dioxide 28 (22-30) mmol/L Anion Gap 13 mmol/L BUN 18 (9-20) mg/dL Creatinine 1.08 (0.66-1.25) mg/dL Est GFR (CKD-EPI)AfAm 87 (>60 ml/min/1.73 sqM) Est GFR (CKD-EPI)NonAf 75 (>60 ml/min/1.73 sqM) Glucose 116 H (74-99) mg/dL Plasma Lactic Acid Rakesh 2.0 (0.7-2.0) mmol/L Calcium 9.9 (8.4-10.2) mg/dL Total Bilirubin 0.7 (0.2-1.3) mg/dL AST 24 (17-59) U/L ALT 31 (21-72) U/L Alkaline Phosphatase 99 (38-126) U/L Total Protein 8.3 H (6.3-8.2) g/dL Albumin 5.2 H (3.5-5.0) g/dL Amylase 63 (30-110) U/L Lipase 85 (23-300) U/L Urine Color Urine Appearance (Clear) Urine pH (5.0-8.0) Ur Specific [place] (1.001-1.035) Urine Protein (Negative) Urine Glucose (UA) (Negative) Urine Ketones (Negative) Urine Blood (Negative) Urine Nitrite (Negative) Urine Bilirubin (Negative) Urine Urobilinogen (<2.0) mg/dL Ur Leukocyte Esterase (Negative) Urine RBC (0-5) /hpf Urine WBC (0-5) /hpf Urine Mucus (None) /hpf 10/05/18 Range/Units 11:14 WBC (3.8-10.6) k/uL RBC (4.30-5.90) m/uL Hgb (13.0-17.5) gm/dL Hct (39.0-53.0) % MCV (80.0-100.0) fL MCH (25.0-35.0) pg MCHC (31.0-37.0) g/dL RDW (11.5-15.5) % Plt Count (150-450) k/uL Neutrophils % % Lymphocytes % % Monocytes % % Eosinophils % % Basophils % % Neutrophils # (1.3-7.7) k/uL Lymphocytes # (1.0-4.8) k/uL Monocytes # (0-1.0) k/uL Eosinophils # (0-0.7) k/uL Basophils # (0-0.2) k/uL Sodium (137-145) mmol/L Potassium (3.5-5.1) mmol/L Chloride (98-107) mmol/L Carbon Dioxide (22-30) mmol/L Anion Gap mmol/L BUN (9-20) mg/dL Creatinine (0.66-1.25) mg/dL Est GFR (CKD-EPI)AfAm (>60 ml/min/1.73 sqM) Est GFR (CKD-EPI)NonAf (>60 ml/min/1.73 sqM) Glucose (74-99) mg/dL Plasma Lactic Acid Rakesh (0.7-2.0) mmol/L Calcium (8.4-10.2) mg/dL Total Bilirubin (0.2-1.3) mg/dL AST (17-59) U/L ALT (21-72) U/L Alkaline Phosphatase (38-126) U/L Total Protein (6.3-8.2) g/dL Albumin (3.5-5.0) g/dL Amylase (30-110) U/L Lipase (23-300) U/L Urine Color Yellow Urine Appearance Clear (Clear) Urine pH 6.0 (5.0-8.0) Ur Specific [place] 1.028 (1.001-1.035) Urine Protein 1+ H (Negative) Urine Glucose (UA) Negative (Negative) Urine Ketones 2+ H (Negative) Urine Blood Negative (Negative) Urine Nitrite Negative (Negative) Urine Bilirubin Negative (Negative) Urine Urobilinogen <2.0 (<2.0) mg/dL Ur Leukocyte Esterase Negative (Negative) Urine RBC <1 (0-5) /hpf Urine WBC 1 (0-5) /hpf Urine Mucus Many H (None) /hpf Disposition Clinical Impression: Gastroenteritis, Abdominal pain Disposition: HOME SELF-CARE Condition: Stable Instructions (If sedation given, give patient instructions): Abdominal Pain (ED) Additional Instructions: Please return to the Emergency Department if symptoms worsen or any other concerns. Follow up with GI if symptoms continue. Prescriptions: Metoclopramide [Reglan] 10 mg PO TID PRN #15 tab PRN Reason: Nausea Is patient prescribed a controlled substance at d/c from ED?: No Referrals: Elvis Hoffmann Jr, [Primary Care Provider] - 1-2 days
[2018-10-05 10:35] LABS: Basophils % (A) 0 %; Eosinophils % (A) 0 %; HCT 50.9 % (39.0-53.0); Lymphocytes # (A) 1.5 k/uL (1.0-4.8); Lymphocytes % (A) 19 %; MCH 29.5 pg (25.0-35.0); MCHC 34.2 g/dL (31.0-37.0); MCV 86.2 fL (80.0-100.0); Mean Platelet Volume 7.5; Monocytes # (A) 0.2 k/uL (0-1.0); Monocytes % (A) 3 %; Neutrophils # (A) 5.9 k/uL (1.3-7.7); Neutrophils % (A) 76 %; Platelet Count 215 k/uL (150-450); RBC 5.91 m/uL (4.30-5.90); RDW 15.2 % (11.5-15.5); WBC 7.8 k/uL (3.8-10.6)
[2018-10-05 10:38] LABS: Albumin 5.2 g/dL (3.5-5.0); Calcium 9.9 mg/dL (8.4-10.2); Potassium 4.2 mmol/L (3.5-5.1); Total Bilirubin 0.7 mg/dL (0.2-1.3); Total Protein 8.3 g/dL (6.3-8.2)
[2018-10-05 10:52] LABS: HGB 17.4 gm/dL (13.0-17.5)
[2018-10-05] MEDS ORDERED: HYDROmorphone 0.5 MG/0.5 ML SYRINGE IVP STA (11:16)
[2018-10-05 11:25] LABS: Appearance,Urine Clear (Clear); Bilirubin,Urine Negative (Negative); Blood,Urine Negative (Negative); Color,Urine Yellow; Glucose,Urine (UA) Negative (Negative); Ketones,Urine 2+ (Negative); Leukocyte Esterase,Urine Negative (Negative); Mucus,Urine Many /hpf; Nitrite,Urine Negative (Negative); Protein,Urine 1+ (Negative); RBC,Urine <1 /hpf (0-5); Specific Gravity,Urine 1.028 (1.001-1.035); Urobilinogen,Urine <2.0 mg/dL (<2.0)
--- NOTE | 2018-10-05 11:26 | XR ---
EXAMINATION TYPE: XR KUB DATE OF EXAM: 10/05/2018 COMPARISON: 08/29/2018 INDICATION: Nausea vomiting pain TECHNIQUE: Single view abdomen upright view FINDINGS: There is a normal bowel gas pattern. Psoas margins are normal. No organomegaly is present. No free air is evident. No suspicious air-fluid levels are present. No differential air-fluid levels are present. No mass effect is evident. IMPRESSION: 1. Unremarkable Abdomen
[2018-10-05 12:52] VITALS: BP 137/87; PULSE 67; TEMP 98.2
== END 2018-10-05 12:51 | disposition home or self-care (01) ==
LOC: EC 09:28
DX: K52.9 Noninfective gastroenteritis and colitis, unspecified (principal); F41.9 Anxiety disorder, unspecified; F32.9 Major depressive disorder, single episode, unspecified; F17.200 Nicotine dependence, unspecified, uncomplicated; Z79.899 Other long term (current) drug therapy
CPT/HCPCS: 36415; 80053; 82150; 83605; 83690; 85025; 81001; 74018; 99284; 96374; 96375 ×2; 96361; J2405; J1885; J1170

== ENCOUNTER 2018-11-27 15:01 | Emergency (ER) | payer MEDICARE ==
[2018-11-27 15:26] VITALS: RESP 16; TEMP 98.6
[2018-11-27] MEDS ORDERED: MORPHINE SULFATE 4 MG/ML SYRINGE IVP STA (16:16)
[2018-11-27] MEDS ORDERED: ONDANSETRON 4 MG/2 ML VIAL IVP STA (16:16)
[2018-11-27] MEDS ORDERED: SODIUM CHLORIDE 0.9% 1,000 ML IV STA (16:16)
[2018-11-27 16:35] LABS: Appearance,Urine Clear (Clear); Bilirubin,Urine Negative (Negative); Blood,Urine Negative (Negative); Color,Urine Yellow; Glucose,Urine (UA) Negative (Negative); Ketones,Urine 2+ (Negative); Leukocyte Esterase,Urine Negative (Negative); Nitrite,Urine Negative (Negative); Protein,Urine Trace (Negative); Specific Gravity,Urine 1.021 (1.001-1.035); Urobilinogen,Urine <2.0 mg/dL (<2.0)
[2018-11-27 16:44] LABS: ALT 24 U/L (21-72); AST 26 U/L (17-59); African American GFR (CKD) >90 (>60 ml/min/1.73 sqM); Albumin 5.2 g/dL (3.5-5.0); Alkaline Phosphatase 94 U/L (38-126); Amylase 56 U/L (30-110); Anion Gap 13 mmol/L; Blood Urea Nitrogen 13 mg/dL (9-20); Carbon Dioxide 23 mmol/L (22-30); Chloride 106 mmol/L (98-107); Glucose 123 mg/dL (74-99); Sodium 142 mmol/L (137-145); Total Protein 8.7 g/dL (6.3-8.2)
[2018-11-27 16:46] LABS: Potassium 4.6 mmol/L (3.5-5.1)
--- NOTE | 2018-11-27 17:06 | ED ---
Abdominal Pain HPI - General Chief Complaint: Abdominal Pain Stated Complaint: Vomiting Time Seen by Provider: 11/27/18 15:45 Source: patient Mode of arrival: ambulatory Limitations: no limitations - History of Present Illness Initial Comments: Patient is a 58-year-old male presenting to emergency Department with complaints of abdominal pain with onset this morning. Patient has been in the ER a number of occasions for similar complaint. Patient states he is also having low back pain and nausea and vomiting. Patient states his symptoms always start the same. Patient states they have done computed tomography scan in the past without any answers. Patient is also seeing a GI doctor without any answers. Patient denies fever, chills, diarrhea. Patient states his belly pain is generalized and is sharp. Patient denies any injuries to his back. Patient states that his back pain as all lower lumbar area and is across both sides. Patient denies chest pain, shortness of breath. No other complaints at this time. Upon arrival to ER, vital signs are stable, afebrile. - Related Data Home Medications Medication Instructions Recorded Confirmed Hydrocodone/Acetaminophen [[place] 1 tab PO Q8H PRN 09/13/16 10/05/18 10-325] Venlafaxine HCl [Effexor XR] 75 mg PO DAILY 09/13/16 10/05/18 buPROPion HCL [Wellbutrin XL] 150 mg PO DAILY 09/13/16 10/05/18 Previous Rx's Medication Instructions Recorded ARIPiprazole [Abilify] 10 mg PO HS 30 Days tab 04/07/15 Ondansetron Odt [Zofran Odt] 4 mg PO Q8HR PRN #20 tab 08/29/18 Metoclopramide [Reglan] 10 mg PO TID PRN #15 tab 10/05/18 Allergies Allergy/AdvReac Type Severity Reaction Status Date / Time No Known Allergies Allergy Verified 10/05/18 10:08 Review of Systems ROS Statement: Those systems with pertinent positive or pertinent negative responses have been documented in the HPI. ROS Other: All systems not noted in ROS Statement are negative. Past Medical History Past Medical History: No Reported History Additional Past Medical History / Comment(s): chronic back pain History of Any Multi-Drug Resistant Organisms: None Reported Past Surgical History: Orthopedic Surgery Past Psychological History: Anxiety, Depression Smoking Status: Current every day smoker Past Alcohol Use History: None Reported Past Drug Use History: None Reported General Exam - General Exam Comments Initial Comments: GENERAL: Well-appearing, well-nourished and in mild distress secondary to pain. HEAD: Atraumatic, normocephalic. EYES: Pupils equal round and reactive to light, extraocular movements intact, sclera anicteric, conjunctiva are normal. ENT: TMs normal, nares patent, oropharynx clear without exudates. Moist mucous membranes. NECK: Normal range of motion, supple without lymphadenopathy or JVD. LUNGS: Breath sounds clear to auscultation bilaterally and equal. No wheezes rales or rhonchi. HEART: Regular rate and rhythm without murmurs, rubs or gallops. ABDOMEN: Generalized abdominal tenderness, mild guarding. Soft, normoactive bowel sounds. No rebound. No masses appreciated. : Deferred EXTREMITIES: Normal range of motion, no pitting or edema. No clubbing or cyanosis. Pain with palpation lower lumbar paraspinals both right and left side. Normal trunk range of motion. NEUROLOGICAL: Cranial nerves II through XII grossly intact. Normal speech, normal gait. PSYCH: Normal mood, normal affect. SKIN: Warm, Dry, normal turgor, no rashes or lesions noted. Limitations: no limitations Course Vital Signs 11/27/18 11/27/18 11/27/18 15:22 16:21 18:12 Temperature 98.6 F 98.6 F Pulse Rate 46 L 54 L 62 Respiratory 16 16 16 Rate Blood Pressure 153/77 147/81 141/84 O2 Sat by Pulse 100 99 99 Oximetry Medical Decision Making - Medical Decision Making Patient is a 58-year-old male presenting with abdominal pain, nausea, vomiting, lower back pain with onset this morning. Patient has been to the ER for similar complaints in the past. Patient has had follow up with GI. Upon arrival to ER vital signs are stable, afebrile. On exam patient has generalized abdominal tenderness as well as lumbar paraspinal tenderness. CBC, CMP are within normal limits. Lactic acid is 1.9. Amylase lipase is normal. UA is within normal limits. Computed tomography scan of the abdomen shows possible diverticuli without diverticulosis. Otherwise computed tomography scan is relatively unchanged from previous. Patient was given fluids, pain medicine, Zofran with improvement in symptoms. Patient is stating he wants to go home as he feels better. It was discussed with patient that he should follow up with orthopedics regarding the low back pain. Continue to follow up with GI regarding abdominal pain. Patient is in agreement with this plan of care. Return parameters were discussed with the patient and he verbalized understanding. Patient is stable for discharge at this time. Case discussed with Dr. Emery. - Lab Data Result diagrams: 11/27/18 17:00 11/27/18 16:20 Lab Results 11/27/18 11/27/18 11/27/18 Range/Units 16:20 16:20 16:20 WBC (3.8-10.6) k/uL RBC (4.30-5.90) m/uL Hgb (13.0-17.5) gm/dL Hct (39.0-53.0) % MCV (80.0-100.0) fL MCH (25.0-35.0) pg MCHC (31.0-37.0) g/dL RDW (11.5-15.5) % Plt Count (150-450) k/uL Neutrophils % % Lymphocytes % % Monocytes % % Eosinophils % % Basophils % % Neutrophils # (1.3-7.7) k/uL Lymphocytes # (1.0-4.8) k/uL Monocytes # (0-1.0) k/uL Eosinophils # (0-0.7) k/uL Basophils # (0-0.2) k/uL Sodium 142 (137-145) mmol/L Potassium 4.6 (3.5-5.1) mmol/L Chloride 106 (98-107) mmol/L Carbon Dioxide 23 (22-30) mmol/L Anion Gap 13 mmol/L BUN 13 (9-20) mg/dL Creatinine 0.91 (0.66-1.25) mg/dL Est GFR (CKD-EPI)AfAm >90 (>60 ml/min/1.73 sqM) Est GFR (CKD-EPI)NonAf >90 (>60 ml/min/1.73 sqM) Glucose 123 H (74-99) mg/dL Plasma Lactic Acid Rakesh 1.9 (0.7-2.0) mmol/L Calcium 10.0 (8.4-10.2) mg/dL Total Bilirubin 1.0 (0.2-1.3) mg/dL AST 26 (17-59) U/L ALT 24 (21-72) U/L Alkaline Phosphatase 94 (38-126) U/L Total Protein 8.7 H (6.3-8.2) g/dL Albumin 5.2 H (3.5-5.0) g/dL Amylase 56 (30-110) U/L Lipase 39 (23-300) U/L Urine Color Yellow Urine Appearance Clear (Clear) Urine pH 8.0 (5.0-8.0) Ur Specific [place] 1.021 (1.001-1.035) Urine Protein Trace H (Negative) Urine Glucose (UA) Negative (Negative) Urine Ketones 2+ H (Negative) Urine Blood Negative (Negative) Urine Nitrite Negative (Negative) Urine Bilirubin Negative (Negative) Urine Urobilinogen <2.0 (<2.0) mg/dL Ur Leukocyte Esterase Negative (Negative) 11/27/18 Range/Units 17:00 WBC 6.7 (3.8-10.6) k/uL RBC 5.09 (4.30-5.90) m/uL Hgb 15.7 (13.0-17.5) gm/dL Hct 45.2 (39.0-53.0) % MCV 88.7 (80.0-100.0) fL MCH 30.8 (25.0-35.0) pg MCHC 34.7 (31.0-37.0) g/dL RDW 15.1 (11.5-15.5) % Plt Count 187 (150-450) k/uL Neutrophils % 85 % Lymphocytes % 11 % Monocytes % 2 % Eosinophils % 1 % Basophils % 0 % Neutrophils # 5.7 (1.3-7.7) k/uL Lymphocytes # 0.8 L (1.0-4.8) k/uL Monocytes # 0.1 (0-1.0) k/uL Eosinophils # 0.1 (0-0.7) k/uL Basophils # 0.0 (0-0.2) k/uL Sodium (137-145) mmol/L Potassium (3.5-5.1) mmol/L Chloride (98-107) mmol/L Carbon Dioxide (22-30) mmol/L Anion Gap mmol/L BUN (9-20) mg/dL Creatinine (0.66-1.25) mg/dL Est GFR (CKD-EPI)AfAm (>60 ml/min/1.73 sqM) Est GFR (CKD-EPI)NonAf (>60 ml/min/1.73 sqM) Glucose (74-99) mg/dL Plasma Lactic Acid Rakesh (0.7-2.0) mmol/L Calcium (8.4-10.2) mg/dL Total Bilirubin (0.2-1.3) mg/dL AST (17-59) U/L ALT (21-72) U/L Alkaline Phosphatase (38-126) U/L Total Protein (6.3-8.2) g/dL Albumin (3.5-5.0) g/dL Amylase (30-110) U/L Lipase (23-300) U/L Urine Color Urine Appearance (Clear) Urine pH (5.0-8.0) Ur Specific [place] (1.001-1.035) Urine Protein (Negative) Urine Glucose (UA) (Negative) Urine Ketones (Negative) Urine Blood (Negative) Urine Nitrite (Negative) Urine Bilirubin (Negative) Urine Urobilinogen (<2.0) mg/dL Ur Leukocyte Esterase (Negative) Disposition Clinical Impression: Abdominal pain, Low back pain, Nausea & vomiting Disposition: HOME SELF-CARE Condition: Stable Instructions (If sedation given, give patient instructions): Abdominal Pain (ED), Chronic Back Pain (DC) Additional Instructions: Please return to the Emergency Department if symptoms worsen or any other concerns. Follow -Up with orthopedics regarding back pain. Is patient prescribed a controlled substance at d/c from ED?: No Referrals: Elvis Hoffmann Jr, DO [Primary Care Provider] - 1-2 days Avni Horne MD [STAFF PHYSICIAN] - 1-2 days
[2018-11-27 17:07] LABS: Basophils % (A) 0 %; Eosinophils # (A) 0.1 k/uL (0-0.7); Eosinophils % (A) 1 %; HCT 45.2 % (39.0-53.0); HGB 15.7 gm/dL (13.0-17.5); Lymphocytes # (A) 0.8 k/uL (1.0-4.8); Lymphocytes % (A) 11 %; MCH 30.8 pg (25.0-35.0); MCHC 34.7 g/dL (31.0-37.0); MCV 88.7 fL (80.0-100.0); Mean Platelet Volume 7.9; Monocytes # (A) 0.1 k/uL (0-1.0); Monocytes % (A) 2 %; Neutrophils # (A) 5.7 k/uL (1.3-7.7); Neutrophils % (A) 85 %; Platelet Count 187 k/uL (150-450); RBC 5.09 m/uL (4.30-5.90); RDW 15.1 % (11.5-15.5); WBC 6.7 k/uL (3.8-10.6)
--- NOTE | 2018-11-27 17:21 | CT ---
EXAMINATION TYPE: CT abdomen pelvis w con DATE OF EXAM: 11/27/2018 COMPARISON: 08/29/2018 HISTORY: Pt c/o vomiting/nausea x1 day CT DLP: 1140.2 mGycm Automated exposure control for dose reduction was used. TECHNIQUE: Helical acquisition of images was performed from the lung bases through the pelvis. CONTRAST: Performed without Oral Contrast and with IV Contrast, patient injected with 100 mL of Isovue 300. FINDINGS: Lung bases are clear. There is no pleural effusion. Heart size is normal. There is no pericardial eff usion. Liver shows no focal defect. Spleen appears normal. There is no pancreatic mass. Stomach appears norm al. There is no adrenal mass. Kidneys show satisfactory contrast opacification. There is no hydronephrosi s. Ureters are not dilated. Bladder distends smoothly. There is no free fluid in the pelvis. There is no inguinal hernia. There are a few sigmoid diverticula. The appendix appears normal. There is no si gn of free air. There is no ascites. The lumbar spine appears intact. There is narrowing of L4-5 L5-S1 disc spaces with spur formation. I see no focal bone destruction. Bony pelvis appears intact. IMPRESSION: THERE ARE SOME SIGMOID DIVERTICULA WITHOUT DEFINITE EVIDENCE FOR ANY DIVERTICULITIS. NORMAL APPENDIX. NO ADVERSE CHANGE COMPARED TO OLD EXAM.
[2018-11-27 18:13] VITALS: BP 141/84; PULSE 62
== END 2018-11-27 18:13 | disposition home or self-care (01) ==
LOC: EC 15:01
DX: M54.5 Low back pain (principal); R11.2 Nausea with vomiting, unspecified; R10.84 Generalized abdominal pain; F32.9 Major depressive disorder, single episode, unspecified; F41.9 Anxiety disorder, unspecified; F17.200 Nicotine dependence, unspecified, uncomplicated; Z79.899 Other long term (current) drug therapy
CPT/HCPCS: 36415; 80053; 82150; 83605; 83690; 85025; 81003; 74177; 99284; 96374; 96375; 96361 ×2; J2270; J2405; Q9967

== ENCOUNTER 2019-04-16 14:31 | Emergency (ER) | payer MEDICARE, OTHER ==
[2019-04-16 15:11] VITALS: BP 140/62; PULSE 83; RESP 22; TEMP 97.8
[2019-04-16] MEDS ORDERED: PANTOPRAZOLE 40 MG/10 ML VIAL IVP STA (15:46)
[2019-04-16] MEDS ORDERED: ONDANSETRON 4 MG/2 ML VIAL IVP STA (15:46)
[2019-04-16] MEDS ORDERED: SODIUM CHLORIDE 0.9% 1,000 ML IV STA (15:46)
[2019-04-16] MEDS ORDERED: DICYCLOMINE 10 MG/ML 2 ML AMP IM STA (15:47)
[2019-04-16] MEDS ORDERED: KETOROLAC 30 MG/ML 1 ML VIAL IVP STA (15:48)
[2019-04-16 16:15] LABS: Basophils % (A) 0 %; Eosinophils % (A) 0 %; HGB 18.5 gm/dL (13.0-17.5); Lymphocytes # (A) 1.2 k/uL (1.0-4.8); Lymphocytes % (A) 15 %; MCH 31.2 pg (25.0-35.0); MCHC 35.5 g/dL (31.0-37.0); MCV 87.7 fL (80.0-100.0); Mean Platelet Volume 7.6; Monocytes # (A) 0.2 k/uL (0-1.0); Monocytes % (A) 3 %; Neutrophils # (A) 6.4 k/uL (1.3-7.7); Neutrophils % (A) 80 %; Platelet Count 242 k/uL (150-450); RBC 5.93 m/uL (4.30-5.90); RDW 12.2 % (11.5-15.5); WBC 7.9 k/uL (3.8-10.6)
[2019-04-16 16:40] LABS: ALT 27 U/L (4-49); AST 26 U/L (17-59); African American GFR (CKD) >90 (>60 ml/min/1.73 sqM); Albumin 5.2 g/dL (3.5-5.0); Alkaline Phosphatase 108 U/L (38-126); Amylase 55 U/L (30-110); Anion Gap 12 mmol/L; Blood Urea Nitrogen 20 mg/dL (9-20); Calcium 9.8 mg/dL (8.4-10.2); Carbon Dioxide 25 mmol/L (22-30); Chloride 103 mmol/L (98-107); Glucose 127 mg/dL (74-99); Non-African American GFR(CKD) >90 (>60 ml/min/1.73 sqM); Potassium 4.8 mmol/L (3.5-5.1); Sodium 140 mmol/L (137-145); Total Bilirubin 0.8 mg/dL (0.2-1.3); Total Protein 8.4 g/dL (6.3-8.2)
--- NOTE | 2019-04-16 16:46 | ED ---
Abdominal Pain HPI - General Chief Complaint: Abdominal Pain Stated Complaint: Vomitting Time Seen by Provider: 04/16/19 15:33 Source: patient Mode of arrival: ambulatory Limitations: no limitations - History of Present Illness Initial Comments: Patient 58-year-old male presenting to the emergency department with a chief complaint of abdominal pain nausea vomiting. Patient states she has been multiple times to the ED with the same chief complaint and it always starts out the same way. States the abdominal pain is located in the right suprapubic re gion. Patient also reports pain in the lumbosacral region that also may change leg last time. Patient reports the pain is not related to by mouth intake. Patient states he has been evaluated by GI without any conclusions. Patient reports he has severe attacks like this once every few weeks. Patient does report taking [id number] analgesics with minimal improvement. Denies any chest pain shortness of breath headaches. - Related Data Home Medications Medication Instructions Recorded Confirmed Hydrocodone/Acetaminophen [[place] 1 tab PO Q8H PRN 09/13/16 10/05/18 10-325] Venlafaxine HCl [Effexor XR] 75 mg PO DAILY 09/13/16 10/05/18 buPROPion HCL [Wellbutrin XL] 150 mg PO DAILY 09/13/16 10/05/18 Previous Rx's Medication Instructions Recorded ARIPiprazole [Abilify] 10 mg PO HS 30 Days tab 04/07/15 Ondansetron Odt [Zofran Odt] 4 mg PO Q8HR PRN #20 tab 08/29/18 Metoclopramide [Reglan] 10 mg PO TID PRN #15 tab 10/05/18 Allergies Allergy/AdvReac Type Severity Reaction Status Date / Time No Known Allergies Allergy Verified 04/16/19 15:11 Review of Systems ROS Statement: Those systems with pertinent positive or pertinent negative responses have been documented in the HPI. ROS Other: All systems not noted in ROS Statement are negative. Past Medical History Past Medical History: No Reported History Additional Past Medical History / Comment(s): chronic back pain History of Any Multi-Drug Resistant Organisms: None Reported Past Surgical History: Orthopedic Surgery Past Psychological History: Anxiety, Depression Smoking Status: Current every day smoker Past Alcohol Use History: None Reported Past Drug Use History: None Reported General Exam Limitations: no limitations General appearance: alert, in no apparent distress Head exam: Present: atraumatic, normocephalic, normal inspection Eye exam: Present: normal appearance, PERRL, EOMI Pupils: Present: normal accommodation ENT exam: Present: normal exam, normal oropharynx, mucous membranes moist Neck exam: Present: normal inspection, full ROM Respiratory exam: Present: normal lung sounds bilaterally. Absent: wheezes Cardiovascular Exam: Present: regular rate, normal rhythm, normal heart sounds GI/Abdominal exam: Present: soft, tenderness (Suprapubic tenderness with a burning sensation.), normal bowel sounds. Absent: distended, guarding, rebound, rigid, pulsatile mass, hernia Extremities exam: Present: normal inspection, full ROM, normal capillary refill, other (+2 ulnar and radial pulses bilaterally.) Back exam: Present: normal inspection, full ROM, tenderness (Lumbosacral tenderness), paraspinal tenderness. Absent: vertebral tenderness Neurological exam: Present: alert, oriented X3 Psychiatric exam: Present: normal affect, normal mood Skin exam: Present: warm, dry, intact, normal color Course Vital Signs 04/16/19 15:07 Temperature 97.8 F Pulse Rate 83 Respiratory 22 Rate Blood Pressure 140/62 O2 Sat by Pulse 98 Oximetry Medical Decision Making - Lab Data Result diagrams: 04/16/19 15:20 04/16/19 15:20 Lab Results 04/16/19 04/16/19 04/16/19 Range/Units 15:20 15:20 16:15 WBC 7.9 (3.8-10.6) k/uL RBC 5.93 H (4.30-5.90) m/uL Hgb 18.5 H (13.0-17.5) gm/dL Hct 52.0 (39.0-53.0) % MCV 87.7 (80.0-100.0) fL MCH 31.2 (25.0-35.0) pg MCHC 35.5 (31.0-37.0) g/dL RDW 12.2 (11.5-15.5) % Plt Count 242 (150-450) k/uL Neutrophils % 80 % Lymphocytes % 15 % Monocytes % 3 % Eosinophils % 0 % Basophils % 0 % Neutrophils # 6.4 (1.3-7.7) k/uL Lymphocytes # 1.2 (1.0-4.8) k/uL Monocytes # 0.2 (0-1.0) k/uL Eosinophils # 0.0 (0-0.7) k/uL Basophils # 0.0 (0-0.2) k/uL Sodium 140 (137-145) mmol/L Potassium 4.8 (3.5-5.1) mmol/L Chloride 103 (98-107) mmol/L Carbon Dioxide 25 (22-30) mmol/L Anion Gap 12 mmol/L BUN 20 (9-20) mg/dL Creatinine 0.93 (0.66-1.25) mg/dL Est GFR (CKD-EPI)AfAm >90 (>60 ml/min/1.73 sqM) Est GFR (CKD-EPI)NonAf >90 (>60 ml/min/1.73 sqM) Glucose 127 H (74-99) mg/dL Calcium 9.8 (8.4-10.2) mg/dL Total Bilirubin 0.8 (0.2-1.3) mg/dL AST 26 (17-59) U/L ALT 27 (4-49) U/L Alkaline Phosphatase 108 (38-126) U/L Total Protein 8.4 H (6.3-8.2) g/dL Albumin 5.2 H (3.5-5.0) g/dL Amylase 55 (30-110) U/L Lipase 62 (23-300) U/L Urine Color Yellow Urine Appearance Clear (Clear) Urine pH 5.5 (5.0-8.0) Ur Specific [place] 1.029 (1.001-1.035) Urine Protein 1+ H (Negative) Urine Glucose (UA) Trace H (Negative) Urine Ketones 3+ H (Negative) Urine Blood Trace H (Negative) Urine Nitrite Negative (Negative) Urine Bilirubin Negative (Negative) Urine Urobilinogen <2.0 (<2.0) mg/dL Ur Leukocyte Esterase Trace H (Negative) Urine RBC 1 (0-5) /hpf Urine WBC 1 (0-5) /hpf Urine Mucus Few H (None) /hpf Disposition Clinical Impression: Abdominal pain, Nausea & vomiting Disposition: HOME SELF-CARE Condition: Stable Instructions (If sedation given, give patient instructions): Abdominal Pain (ED) Additional Instructions: Please take prescribed medication as directed. Please follow up with primary care. Please return to emergency department if symptoms worsen. Is patient prescribed a controlled substance at d/c from ED?: No Referrals: Elvis Hoffmann Jr, DO [Primary Care Provider] - 1-2 days Time of Disposition: 17:26
[2019-04-16 17:01] LABS: Appearance,Urine Clear (Clear); Bilirubin,Urine Negative (Negative); Blood,Urine Trace (Negative); Color,Urine Yellow; Glucose,Urine (UA) Trace (Negative); Ketones,Urine 3+ (Negative); Leukocyte Esterase,Urine Trace (Negative); Mucus,Urine Few /hpf; Nitrite,Urine Negative (Negative); PH, Urine 5.5 (5.0-8.0); Protein,Urine 1+ (Negative); RBC,Urine 1 /hpf (0-5); Specific Gravity,Urine 1.029 (1.001-1.035); Urobilinogen,Urine <2.0 mg/dL (<2.0); WBC,Urine 1 /hpf (0-5)
[2019-04-16] MEDS ORDERED: MORPHINE SULFATE 4 MG/ML SYRINGE IVP STA (17:34)
== END 2019-04-16 19:05 | disposition home or self-care (01) ==
LOC: EC 14:31
DX: R11.2 Nausea with vomiting, unspecified (principal); R10.31 Right lower quadrant pain; M54.5 Low back pain; F32.9 Major depressive disorder, single episode, unspecified; F41.9 Anxiety disorder, unspecified; F17.200 Nicotine dependence, unspecified, uncomplicated; Z79.899 Other long term (current) drug therapy
CPT/HCPCS: 36415; 80053; 82150; 83690; 85025; 81001; 99284; 96374; 96375 ×3; 96361 ×3; 96372; J2270; J0500; J2405; J1885; C9113

== ENCOUNTER 2019-12-10 09:24 | Emergency (ER) | payer MEDICARE, OTHER ==
[2019-12-10 09:29] VITALS: TEMP 97.8
[2019-12-10] MEDS ORDERED: ONDANSETRON 4 MG/2 ML VIAL IVP STA (09:51)
[2019-12-10] MEDS ORDERED: SODIUM CHLORIDE 0.9% 1,000 ML IV STA (09:51)
[2019-12-10] MEDS ORDERED: KETOROLAC 15 MG/ML 1 ML VIAL IVP STA (09:52)
[2019-12-10 10:17] LABS: ALT 21 U/L (4-49); AST 21 U/L (17-59); African American GFR (CKD) >90 (>60 ml/min/1.73 sqM); Albumin 4.3 g/dL (3.5-5.0); Alkaline Phosphatase 71 U/L (38-126); Amylase 51 U/L (30-110); Anion Gap 6 mmol/L; Basophils % (A) 1 %; Blood Urea Nitrogen 15 mg/dL (9-20); Calcium 9.4 mg/dL (8.4-10.2); Carbon Dioxide 24 mmol/L (22-30); Chloride 108 mmol/L (98-107); Eosinophils % (A) 1 %; Glucose 104 mg/dL (74-99); HCT 47.9 % (39.0-53.0); HGB 15.9 gm/dL (13.0-17.5); Lymphocytes # (A) 1.1 k/uL (1.0-4.8); Lymphocytes % (A) 18 %; MCHC 33.2 g/dL (31.0-37.0); MCV 90.3 fL (80.0-100.0); Mean Platelet Volume 7.5; Monocytes # (A) 0.3 k/uL (0-1.0); Monocytes % (A) 5 %; Neutrophils # (A) 4.6 k/uL (1.3-7.7); Neutrophils % (A) 74 %; Non-African American GFR(CKD) >90 (>60 ml/min/1.73 sqM); Platelet Count 208 k/uL (150-450); RDW 12.4 % (11.5-15.5); Sodium 138 mmol/L (137-145); Total Bilirubin 0.8 mg/dL (0.2-1.3); Total Protein 6.8 g/dL (6.3-8.2); WBC 6.3 k/uL (3.8-10.6)
--- NOTE | 2019-12-10 10:21 | ED ---
General Adult HPI - General Chief complaint: Nausea/Vomiting/Diarrhea Stated complaint: Vomiting, nausea, back pain Time Seen by Provider: 12/10/19 09:34 Source: patient, RN notes reviewed Mode of arrival: ambulatory Limitations: no limitations - History of Present Illness Initial comments: 59-year-old male with chronic back pain presents to the emergency room for a chief complaint of nausea vomiting. Patient reports that for the past week he has been nauseous every other day in the morning. States he vomits in the morning. States it lasts at the day but then generally subsides until the next day. He did have one episode of diarrhea today. Patient reports he has lower abdominal pain on the right side as well. Denies fevers or chills.Patient has no other complaints at this time including shortness of breath, chest pain, abdominal pain, nausea or vomiting, headache, or visual changes. - Related Data Home Medications Medication Instructions Recorded Confirmed Hydrocodone/Acetaminophen [[place] 1 tab PO QID 09/13/16 12/10/19 10-325] buPROPion HCL [Wellbutrin XL] 150 mg PO DAILY 09/13/16 12/10/19 ARIPiprazole [Abilify] 5 mg PO HS 12/10/19 12/10/19 Previous Rx's Medication Instructions Recorded Ondansetron [Zofran ODT] 4 mg PO Q8HR PRN #15 tab 12/10/19 Allergies Allergy/AdvReac Type Severity Reaction Status Date / Time No Known Allergies Allergy Verified 12/10/19 09:58 Review of Systems ROS Statement: Those systems with pertinent positive or pertinent negative responses have been documented in the HPI. ROS Other: All systems not noted in ROS Statement are negative. Past Medical History Past Medical History: No Reported History Additional Past Medical History / Comment(s): chronic back pain History of Any Multi-Drug Resistant Organisms: None Reported Past Surgical History: Orthopedic Surgery Past Psychological History: Anxiety, Depression Smoking Status: Current every day smoker Past Alcohol Use History: None Reported Past Drug Use History: None Reported General Exam Limitations: no limitations General appearance: alert, in no apparent distress Head exam: Present: atraumatic, normocephalic, normal inspection Eye exam: Present: normal appearance, PERRL, EOMI. Absent: scleral icterus, conjunctival injection, periorbital swelling ENT exam: Present: normal exam, mucous membranes moist Neck exam: Present: normal inspection, full ROM. Absent: tenderness, meningismus, lymphadenopathy Respiratory exam: Present: normal lung sounds bilaterally. Absent: respiratory distress, wheezes, rales, rhonchi, stridor Cardiovascular Exam: Present: regular rate, normal rhythm, normal heart sounds. Absent: systolic murmur, diastolic murmur, rubs, gallop, clicks GI/Abdominal exam: Present: soft, tenderness (Minimal right lower quadrant tenderness.), normal bowel sounds. Absent: distended, guarding, rebound, rigid Course Vital Signs 12/10/19 09:27 Temperature 97.8 F Pulse Rate 62 Respiratory 18 Rate Blood Pressure 139/92 O2 Sat by Pulse 98 Oximetry Medical Decision Making - Medical Decision Making Vitals are stable. HPI and physical exam as documented. CBC CMP unremarkable. Urinalysis is negative. CT abdomen and pelvis shows a nonspecific colitis. Patient reevaluated and is feeling much better. He however he is still having some mild back pain and is requesting another dose of pain medication. I did recommend patient follow up closely with primary care and return here if he has any worsening symptoms. He'll be discharged on Zofran was educated to remain hydrated. - Lab Data Result diagrams: 12/10/19 09:57 12/10/19 09:57 Lab Results 12/10/19 12/10/19 12/10/19 Range/Units 09:57 09:57 09:57 WBC 6.3 (3.8-10.6) k/uL RBC 5.30 (4.30-5.90) m/uL Hgb 15.9 (13.0-17.5) gm/dL Hct 47.9 (39.0-53.0) % MCV 90.3 (80.0-100.0) fL MCH 30.0 (25.0-35.0) pg MCHC 33.2 (31.0-37.0) g/dL RDW 12.4 (11.5-15.5) % Plt Count 208 (150-450) k/uL Neutrophils % 74 % Lymphocytes % 18 % Monocytes % 5 % Eosinophils % 1 % Basophils % 1 % Neutrophils # 4.6 (1.3-7.7) k/uL Lymphocytes # 1.1 (1.0-4.8) k/uL Monocytes # 0.3 (0-1.0) k/uL Eosinophils # 0.0 (0-0.7) k/uL Basophils # 0.0 (0-0.2) k/uL Sodium 138 (137-145) mmol/L Potassium 4.0 (3.5-5.1) mmol/L Chloride 108 H (98-107) mmol/L Carbon Dioxide 24 (22-30) mmol/L Anion Gap 6 mmol/L BUN 15 (9-20) mg/dL Creatinine 0.87 (0.66-1.25) mg/dL Est GFR (CKD-EPI)AfAm >90 (>60 ml/min/1.73 sqM) Est GFR (CKD-EPI)NonAf >90 (>60 ml/min/1.73 sqM) Glucose 104 H (74-99) mg/dL Calcium 9.4 (8.4-10.2) mg/dL Total Bilirubin 0.8 (0.2-1.3) mg/dL AST 21 (17-59) U/L ALT 21 (4-49) U/L Alkaline Phosphatase 71 (38-126) U/L Total Protein 6.8 (6.3-8.2) g/dL Albumin 4.3 (3.5-5.0) g/dL Amylase 51 (30-110) U/L Lipase 68 (23-300) U/L Urine Color Yellow Urine Appearance Clear (Clear) Urine pH 8.0 (5.0-8.0) Ur Specific [place] 1.017 (1.001-1.035) Urine Protein Negative (Negative) Urine Glucose (UA) Negative (Negative) Urine Ketones Negative (Negative) Urine Blood Negative (Negative) Urine Nitrite Negative (Negative) Urine Bilirubin Negative (Negative) Urine Urobilinogen <2.0 (<2.0) mg/dL Ur Leukocyte Esterase Negative (Negative) Disposition Clinical Impression: Abdominal pain, Nausea vomiting and diarrhea Disposition: HOME SELF-CARE Condition: Good Instructions (If sedation given, give patient instructions): Colitis (ED) Additional Instructions: Please take Zofran as needed for nausea. Drink plenty of fluids. Follow-up with your doctor in the next few days to ensure resolution of symptoms. Return to the emergency room for any worsening symptoms. Prescriptions: Ondansetron [Zofran ODT] 4 mg PO Q8HR PRN #15 tab PRN Reason: Nausea Is patient prescribed a controlled substance at d/c from ED?: No Referrals: Elvis Hoffmann Jr, [Primary Care Provider] - 1-2 days Time of Disposition: 11:18
[2019-12-10 10:23] LABS: Appearance,Urine Clear (Clear); Bilirubin,Urine Negative (Negative); Blood,Urine Negative (Negative); Color,Urine Yellow; Glucose,Urine (UA) Negative (Negative); Ketones,Urine Negative (Negative); Leukocyte Esterase,Urine Negative (Negative); Nitrite,Urine Negative (Negative); Protein,Urine Negative (Negative); Specific Gravity,Urine 1.017 (1.001-1.035); Urobilinogen,Urine <2.0 mg/dL (<2.0)
--- NOTE | 2019-12-10 10:50 | CT ---
EXAMINATION TYPE: CT abdomen pelvis w con DATE OF EXAM: 12/10/2019 COMPARISON: November 27, 2018 HISTORY: Abd pain CT DLP: 958.1 mGycm CONTRAST: CT scan of the abdomen and pelvis is performed without Oral Contrast and with IV Contrast, patient in jected with 100 mL of Isovue 300. FINDINGS: LUNG BASES-: No visible nodule. No infiltrate. LIVER/GB: No calcified gallstones. No space occupying hepatic lesion. Biliary tree is of normal ca liber. PANCREAS: No inflammation. No distinct mass. SPLEEN: No splenic enlargement. No lesion seen. ADRENALS: No nodule. No thickening. KIDNEYS/BLADDER: No hydronephrosis. No nephrolithiasis. No distinct renal mass. Urinary bladder g rossly unremarkable. BOWEL: Normal appendix. There is wall thickening of the colon extending from the descending colon thr ough the sigmoid colon is felt to reflect nonspecific colitis. The remainder of the colon as well as the small bowel. Within normal limits. GENITAL ORGANS: No gross abnormality. LYMPH NODES: No greater than 1cm abdominal or pelvic lymph nodes are appreciated. AORTA: No significant abnormality. OSSEOUS STRUCTURES: No significant abnormality is seen. OTHER: No significant additional abnormality is seen. IMPRESSION: 1. The findings suggest nonspecific colitis.
[2019-12-10] MEDS ORDERED: MORPHINE SULFATE 4 MG/ML SYRINGE IVP STA (11:03)
[2019-12-10 11:38] VITALS: BP 127/71; PULSE 63; RESP 16
== END 2019-12-10 11:38 | disposition home or self-care (01) ==
LOC: EC 09:24
DX: K52.9 Noninfective gastroenteritis and colitis, unspecified (principal); R10.9 Unspecified abdominal pain; G89.29 Other chronic pain; M54.9 Dorsalgia, unspecified; R11.2 Nausea with vomiting, unspecified; Z79.899 Other long term (current) drug therapy; F32.9 Major depressive disorder, single episode, unspecified; F17.200 Nicotine dependence, unspecified, uncomplicated; F41.9 Anxiety disorder, unspecified
CPT/HCPCS: 36415; 80053; 82150; 83690; 85025; 81003; 74177; 99284; 96374; 96375 ×2; 96361 ×2; J2270; J2405; J1885; Q9967

== ENCOUNTER 2020-08-05 15:21 | Inpatient (IN) | payer MEDICARE, OTHER ==
[2020-08-05] MEDS ORDERED: NITROGLYCERIN SL TABS 0.4 MG TAB SUBLINGUAL STA (15:49)
[2020-08-05] MEDS ORDERED: ASPIRIN 81 MG PO STA (15:49)
[2020-08-05] MEDS ORDERED: MORPHINE SULFATE 4 MG/ML SYRINGE IV STA (15:49)
[2020-08-05 16:02] LABS: Basophils % (A) 1 %; Eosinophils # (A) 0.1 k/uL (0-0.7); Eosinophils % (A) 2 %; HCT 46.2 % (39.0-53.0); Lymphocytes # (A) 2.6 k/uL (1.0-4.8); Lymphocytes % (A) 40 %; MCH 31.2 pg (25.0-35.0); MCHC 34.5 g/dL (31.0-37.0); MCV 90.2 fL (80.0-100.0); Monocytes # (A) 0.4 k/uL (0-1.0); Monocytes % (A) 7 %; Neutrophils # (A) 3.1 k/uL (1.3-7.7); Neutrophils % (A) 48 %; Platelet Count 219 k/uL (150-450); RBC 5.12 m/uL (4.30-5.90); RDW 12.5 % (11.5-15.5); WBC 6.4 k/uL (3.8-10.6)
--- NOTE | 2020-08-05 16:12 | XR ---
EXAMINATION TYPE: XR chest 2V DATE OF EXAM: 08/05/2020 COMPARISON: 12/29/2016 INDICATION: Chest pain TECHNIQUE: Frontal and lateral views of the chest are obtained. FINDINGS: The heart size is normal. The pulmonary vasculature is normal. The lungs are clear. IMPRESSION: 1. No acute pulmonary process.
[2020-08-05 16:14] LABS: INR 0.9 (<1.2); Partial Thromboplastin Time 23.1 sec (22.0-30.0); Prothrombin Time 9.5 sec (9.0-12.0)
[2020-08-05 16:17] LABS: ALT 32 U/L (4-49); AST 26 U/L (17-59); African American GFR (CKD) >90 (>60 ml/min/1.73 sqM); Albumin 4.6 g/dL (3.5-5.0); Alkaline Phosphatase 78 U/L (38-126); Anion Gap 10 mmol/L; Blood Urea Nitrogen 15 mg/dL (9-20); Calcium 9.4 mg/dL (8.4-10.2); Carbon Dioxide 27 mmol/L (22-30); Chloride 103 mmol/L (98-107); Glucose 88 mg/dL (74-99); Magnesium 2.1 mg/dL (1.6-2.3); Non-African American GFR(CKD) 79 (>60 ml/min/1.73 sqM); Potassium 4.3 mmol/L (3.5-5.1); Sodium 140 mmol/L (137-145); Total Bilirubin 0.4 mg/dL (0.2-1.3); Total Protein 7.3 g/dL (6.3-8.2)
--- NOTE | 2020-08-05 16:29 | ED ---
Chest Pain HPI - General Chief Complaint: Chest Pain Stated Complaint: Chest Pain, Jaw Numbness Time Seen by Provider: 08/05/20 15:33 Source: patient Mode of arrival: ambulatory Limitations: no limitations - History of Present Illness Initial Comments: Patient is a 60-year-old male past medical history of chronic back pain, smoking, hypertension presents emergency room with reported chest pain. States that it started while he was moving furniture. Located over the left side of his chest wall which radiates to his left jaw. Pain has been constant since onset. He describes it as pressure sensation graded 8 out of 10. He did not attempt to take any medications at home for his symptoms. Admits to associated shortness of breath and diaphoresis. No previous history of cardiac disease. States he did have a stress test however this was greater than 10 years ago. Patient smokes a pack a day. States that his brother had a heart attack when he was 45. No fevers, chills or cough. No other alleviating, precipitating or modifying factors - Related Data Home Medications Medication Instructions Recorded Confirmed Hydrocodone/Acetaminophen [[place] 1 tab PO QID 09/13/16 08/05/20 10-325] buPROPion HCL [Wellbutrin XL] 150 mg PO DAILY 09/13/16 08/05/20 ARIPiprazole [Abilify] 5 mg PO DAILY 12/10/19 08/05/20 Aspirin 325 mg PO ONCE PRN 08/05/20 08/05/20 Previous Rx's Medication Instructions Recorded Nicotine 21Mg/24Hr Patch [Habitrol] 1 patch TRANSDERM DAILY #30 patch 08/07/20 Allergies Allergy/AdvReac Type Severity Reaction Status Date / Time No Known Allergies Allergy Verified 08/05/20 16:21 Review of Systems ROS Statement: Those systems with pertinent positive or pertinent negative responses have been documented in the HPI. ROS Other: All systems not noted in ROS Statement are negative. EKG Findings - EKG Comments: EKG Findings:: EKG demonstrates normal sinus rhythm with a ventricular rate of 66. VT interval 178. QRS 84. QTC of 425. Some J-point elevation in the inferior and lateral leads. Inverted T-wave in aVL Past Medical History Past Medical History: No Reported History Additional Past Medical History / Comment(s): chronic back pain History of Any Multi-Drug Resistant Organisms: None Reported Past Surgical History: Orthopedic Surgery Past Psychological History: Anxiety, Depression Smoking Status: Current every day smoker Past Alcohol Use History: None Reported Past Drug Use History: None Reported General Exam Limitations: no limitations General appearance: alert, in no apparent distress Head exam: Present: atraumatic, normocephalic, normal inspection Eye exam: Present: normal appearance, PERRL, EOMI. Absent: scleral icterus, conjunctival injection, periorbital swelling ENT exam: Present: normal exam, mucous membranes moist Neck exam: Present: normal inspection. Absent: tenderness, meningismus, lymphadenopathy Respiratory exam: Present: normal lung sounds bilaterally. Absent: respiratory distress, wheezes, rales, rhonchi, stridor Cardiovascular Exam: Present: regular rate, normal rhythm, normal heart sounds. Absent: systolic murmur, diastolic murmur, rubs, gallop, clicks GI/Abdominal exam: Present: soft, normal bowel sounds. Absent: distended, tenderness, guarding, rebound, rigid Extremities exam: Present: normal inspection, full ROM, normal capillary refill. Absent: tenderness, pedal edema, joint swelling, calf tenderness Back exam: Present: normal inspection Neurological exam: Present: alert, oriented X3, CN II-XII intact Psychiatric exam: Present: normal affect, normal mood Skin exam: Present: warm, dry, intact, normal color. Absent: rash Course Vital Signs 08/05/20 08/05/20 08/05/20 15:24 15:32 17:44 Temperature 97.7 F 98.2 F Pulse Rate 55 L 56 L Pulse Rate [ Pulse Oximetery ] Respiratory 22 16 18 Rate Blood Pressure 175/96 121/75 Blood Pressure [Left Arm] O2 Sat by Pulse 99 98 Oximetry 08/05/20 08/05/20 08/06/20 18:22 19:19 05:00 Temperature 98.8 F Pulse Rate 65 64 62 Pulse Rate [ Pulse Oximetery ] Respiratory 18 18 19 Rate Blood Pressure 119/65 125/81 106/56 Blood Pressure [Left Arm] O2 Sat by Pulse 100 97 97 Oximetry 08/06/20 08/06/20 05:49 07:00 Temperature 97.4 F L Pulse Rate 60 Pulse Rate [ 56 L Pulse Oximetery ] Respiratory 17 18 Rate Blood Pressure 112/69 Blood Pressure 121/76 [Left Arm] O2 Sat by Pulse 97 96 Oximetry Chest Pain MDM - MDM Upon arrival patient is promptly placed in a trauma bay #4. A thorough history and physical exam was performed. IV is established. Patient was given 4 baby aspirins and a dose of nitro. EKG was performed. Laboratory studies were conducted. Troponin is negative. Chest x-ray demonstrates no acute process. Patient is reevaluated and continues to have chest pain. He was given 4 mg of morphine. Patient does have improvement in his chest pain down to 5/10. As the patient does have a heart score of 4 I did recommend hospital admission. Spoke with Dr. Mackey who agreed to admit the patient. She will be heparinized as he has no contraindications. Patient is currently awaiting a bed on the floor Critical Care Time Critical Care Time: Yes Critical Care Time: 32 minutes for heparinization of patient due to concern for acs Disposition Clinical Impression: Chest pain Disposition: ADMITTED IP TO THIS HOSP Condition: Stable Is patient prescribed a controlled substance at d/c from ED?: No Decision to Admit Reason: Admit from EC Decision Date: 08/05/20 Decision Time: 17:32
[2020-08-05] MEDS ORDERED: NALOXONE 0.4 MG/ML 1 ML VIAL IV PRN (17:21)
[2020-08-05] MEDS ORDERED: HEPARIN SODIUM 1,000 UN/ML (10ML VL) IV ONE (17:31)
[2020-08-05] MEDS ORDERED: HEPARIN SODIUM 1,000 UN/ML (10ML VL) IV PRN (17:31)
[2020-08-05] MEDS: HYDROcodone/APAP 10-325MG 1 EACH TAB PO SCH (17:43)
[2020-08-05] MEDS ORDERED: HEPARIN SOD,PORK IN 0.45% NACL 25,000 UNIT in 0.45% NACL 1 250ML.BAG IV SCH (17:45)
[2020-08-05] MEDS: MORPHINE SULFATE 4 MG/ML SYRINGE IV PRN (21:54)
[2020-08-06] MEDS: HYDROcodone/APAP 10-325MG 1 EACH TAB PO SCH ×2 (01:47→07:49)
[2020-08-06] MEDS: MORPHINE SULFATE 4 MG/ML SYRINGE IV PRN ×4 (02:26→22:10)
[2020-08-06 07:16] LABS: Basophils % (A) 1 %; Eosinophils # (A) 0.1 k/uL (0-0.7); Eosinophils % (A) 2 %; HCT 42.9 % (39.0-53.0); HGB 14.6 gm/dL (13.0-17.5); Lymphocytes # (A) 2.2 k/uL (1.0-4.8); Lymphocytes % (A) 48 %; MCHC 34.1 g/dL (31.0-37.0); MCV 90.9 fL (80.0-100.0); Mean Platelet Volume 7.7; Monocytes # (A) 0.3 k/uL (0-1.0); Monocytes % (A) 6 %; Neutrophils # (A) 1.9 k/uL (1.3-7.7); Neutrophils % (A) 41 %; Platelet Count 190 k/uL (150-450); RBC 4.72 m/uL (4.30-5.90); RDW 12.5 % (11.5-15.5); WBC 4.6 k/uL (3.8-10.6)
[2020-08-06 07:33] LABS: African American GFR (CKD) >90 (>60 ml/min/1.73 sqM); Anion Gap 5 mmol/L; Blood Urea Nitrogen 13 mg/dL (9-20); Calcium 8.6 mg/dL (8.4-10.2); Carbon Dioxide 26 mmol/L (22-30); Chloride 108 mmol/L (98-107); Glucose 89 mg/dL (74-99); Non-African American GFR(CKD) >90 (>60 ml/min/1.73 sqM); Sodium 139 mmol/L (137-145)
[2020-08-06] MEDS: buPROPion XL 150 MG TAB.ER.24H PO SCH (08:38)
[2020-08-06] MEDS ORDERED: DOBUTamine DRIP for NUC MED 500 MG in DEXTROSE/WATER 1 250ML.BAG IV PRN (08:43)
[2020-08-06] MEDS: ASPIRIN 81 MG PO SCH (08:54)
[2020-08-06] MEDS ORDERED: ARIPiprazole 5 MG TAB PO SCH ×2 (09:00→21:00)
[2020-08-06] MEDS ORDERED: METOPROLOL TARTRATE 5 MG/5 ML VIAL IVP ONE (09:55)
[2020-08-06] MEDS: PANTOPRAZOLE 40 MG/10 ML VIAL IVP SCH (10:10)
[2020-08-06] MEDS ORDERED: methocarbamoL 500 MG TAB PO PRN (10:20)
--- NOTE | 2020-08-06 12:01 | ECHOF ---
Referral Reason:LV function, chest pain MEASUREMENTS -------- HEIGHT: 177.8 cm WEIGHT: 95.3 kg BP: 121/76 RVIDd: 4.4 cm (< 3.3) IVSd: 1.2 cm (0.6 - 1.1) LVIDd: 4.6 cm (3.9 - 5.3) LVPWd: 1.1 cm (0.6 - 1.1) IVSs: 1.3 cm LVIDs: 3.3 cm LVPWs: 1.6 cm LAESV Index (A-L): 16.75 ml/m Ao Diam: 3.1 cm (2.0 - 3.7) AV Cusp: 2.2 cm (1.5 - 2.6) MV EXCURSION: 22.775 mm (> 18.000) MV EF SLOPE: 118 mm/s (70 - 150) EPSS: 1.0 cm MV E Tiago: 0.92 m/s MV DecT: 209 ms MV A Tiago: 0.68 m/s MV E/A Ratio: 1.35 RAP: 15.00 mmHg RVSP: 37.34 mmHg FINDINGS -------- Resting bradycardia (HR<60bpm). This was a technically adequate study. The left ventricular size is normal. There is mild concentric left ventricular hypertrophy. Overa ll left ventricular systolic function is normal with, an EF between 55 - 60 %. The diastolic fillin g pattern is normal for the age of the patient 10.30. The right ventricle is moderately enlarged. Normal LA size by volume 22+/-6 ml/m2. The right atrial size is normal. Interatrial and interventricular septum intact. There is no evidence of aortic regurgitation. There is no evidence of aortic stenosis. No mitral regurgitation. Mild tricuspid regurgitation present. There is mild pulmonary hypertension. The right ventricular systolic pressure, as measured by Doppler, is 37.34mmHg. There is no pulmonic regurgitation present. The aortic root size is normal. The inferior vena cava is mildly dilated. There is no pericardial effusion. CONCLUSIONS -------- 1. The left ventricular size is normal. 2. There is mild concentric left ventricular hypertrophy. 3. Overall left ventricular systolic function is normal with, an EF between 55 - 60 %. 4. The diastolic filling pattern is normal for the age of the patient 10.30 5. The right ventricle is moderately enlarged. 6. Mild tricuspid regurgitation present. 7. There is mild pulmonary hypertension. 8. The right ventricular systolic pressure, as measured by Doppler, is 37.34mmHg. WHOLESALE AGRONOMIST: Shelia Jeter RDCS
--- NOTE | 2020-08-06 12:16 | P.STRESS ---
- Stress Test Note Stress Test Results/Findings: Exam Performed: dobutamine stress echo Exam Date: 08/06/20 Reason for Exam: CP Height: 5 ft 10 in Weight: 95.25 kg Protocol: Dobutamine Stage: IV Duration of Exercise: 9.35 Resting Heart Rate: 55 Resting Blood Pressure: 112/49 Maximum Achieved Heart Rate: 123 Maximum Achieved Blood Pressure: 150/53 85% PMHR: 136 100% PMHR: 160 METS: Technologist Comment: Stress Test Results/Findings: This is Dr. Bagley dictating a report on the dobutamine stress echo of Brian Dickens. This patient admitted to the hospital with chest pain with history of smoking. Enzymes and EKGs were negative. Stress data: Baseline EKG showed sinus rhythm with normal MA interval and QRS duration. Blood pressure at rest is 112/49, pulse rate of 55. Patient was initiated on dobutamine and was titrated to 40 mics. Patient's maximal heart rate went up to only 123 with blood pressure 104 69. Patient complained of severe chest pain. The test was stopped patient was given nitro and also subsequently Lopressor. Patient's EKG did not show any changes.. Echo data Baseline echo images show normal wall motion and thickening. Echo images taken at low-dose, high-dose dobutamine showed progressive augmentation of the wall motion and thickening. However, patient did not achieve 85%. Heart rate. Final impression #1. Inconclusive dobutamine stress test as patient could not achieve 85% predicted heart rate. #2. At the level of exercise that patient has achieved, no evidence of inducible ischemia #3. Patient complain of atypical chest pain which gradually improved with nitro before. If necessary, patient may be considered for a Lexiscan stress test or cardiac catheterization. If patient continues to have atypical chest pain., Computed tomography scan of the chest to be considered
[2020-08-06] MEDS ORDERED: CAFFEINE CITRATE 60 MG/3 ML VIAL IV PRN (12:49)
[2020-08-06] MEDS ORDERED: AMINOPHYLLINE 500 MG/20 ML VIAL IV PRN (12:49)
[2020-08-06] MEDS ORDERED: REGADENOSON 0.4 MG/5 ML SYRINGE IV PRN (12:49)
--- NOTE | 2020-08-06 12:53 | P.CRDCN ---
History of Present Illness Consult date: 08/06/20 History of present illness: HISTORY OF PRESENT ILLNESS: This is a 60-year-old male with a past medical history significant for chronic back pain and depression. Patient does not follow with a director cardiac. We have been asked to see the patient in consultation for chest pain. Patient examined at the bedside. Patient states yesterday he was moving some light patio furniture when he began having chest pain in the middle of his chest. He states the pain radiated to his jaw. He states that his jaw felt stiff. He states the pain lasted for a few hours and went away in the emergency room. Patient denies chest pain or pressure this morning. Patient reports he had a stress test performed over 10 years ago which was normal to his knowledge. Patient smokes a half pack of cigarettes per day. He reports that his dad and brother both had heart attacks in their 40s. EKG reveals sinus mechanism with no signs of acute ischemia Chest xray negative for acute process Laboratory data: WBC 4.6. Hemoglobin 14.6. Platelet count 190. D-dimer 0.19. Sodium 139. Potassium 4.0. BUN 13. Creatinine 0.86. Magnesium 2.1. Troponin negative 3. Current home cardiac medications include none Echocardiogram completed revealed ejection fraction 55-60%, mild tricuspid regurgitation, and mild pulmonary retention. REVIEW OF SYSTEMS: At the time of my exam: CONSTITUTIONAL: Denies fever or chills. HEENT: Denies blurred vision, vision changes, or eye pain. Denies hemoptysis CARDIOVASCULAR: Denies chest pain. Denies orthopnea. Denies PND. Denies palpitations RESPIRATORY: Denies shortness of breath. GASTROINTESTINAL: Denies abdominal pain. Denies nausea or vomiting. HEMATOLOGIC: Denies bleeding disorders. GENITOURINARY: Denies any blood in urine. SKIN: Denies pruitis. Denies rash. PHYSICAL EXAM: VITAL SIGNS: Reviewed. GENERAL: Well-developed in no acute distress. HEENT: Head is normocephalic. Pupils are equal, round. Sclerae anicteric. Mucous membranes of the mouth are moist. Neck supple. No JVD or thyromegaly LUNGS: Respirations even and unlabored. Lungs essentially clear to auscultation bilaterally. HEART: Regular rate and rhythm. S1 and S2 heard. ABDOMEN: Soft. Nondistended. Nontender. EXTREMITIES: Normal range of motion. No clubbing or cyanosis. Peripheral pulses intact. No lower extremity edema NEUROLOGIC: Awake and alert. Oriented x 3. ASSESSMENT: Chest pain, troponins negative 3 Chronic back pain Anxiety Depression Nicotine dependence Family history of premature coronary artery disease PLAN: An acute coronary event has been ruled out Patient underwent debridement stress test today which was inconclusive as he could not reach 85% of his predicted heart rate. No evidence of inducible ischemia was noted. The patient will be scheduled for [place] scan stress test tomorrow NPO at midnight Further recommendations pending patient course Nurse practitioner note has been reviewed by physician. Signing provider agrees with the documented findings, assessment, and plan of care. Past Medical History Past Medical History: No Reported History Additional Past Medical History / Comment(s): chronic back pain History of Any Multi-Drug Resistant Organisms: None Reported Past Surgical History: Orthopedic Surgery Past Psychological History: Anxiety, Depression Smoking Status: Current every day smoker Past Alcohol Use History: None Reported Past Drug Use History: None Reported Medications and Allergies Home Medications Medication Instructions Recorded Confirmed Type Hydrocodone/Acetaminophen [[place] 1 tab PO QID 09/13/16 08/05/20 History 10-325] buPROPion HCL [Wellbutrin XL] 150 mg PO DAILY 09/13/16 08/05/20 History ARIPiprazole [Abilify] 5 mg PO DAILY 12/10/19 08/05/20 History Aspirin 325 mg PO ONCE PRN 08/05/20 08/05/20 History Allergies Allergy/AdvReac Type Severity Reaction Status Date / Time No Known Allergies Allergy Verified 08/05/20 16:21 Physical Exam Vitals: Vital Signs Temp Pulse Pulse Resp BP BP Pulse Ox 08/06/20 07:00 97.4 F L 56 L 18 121/76 96 08/06/20 05:49 60 17 112/69 97 08/06/20 05:00 98.8 F 62 19 106/56 97 08/05/20 19:19 64 18 125/81 97 08/05/20 18:22 65 18 119/65 100 08/05/20 17:44 98.2 F 56 L 18 121/75 98 08/05/20 15:32 16 08/05/20 15:24 97.7 F 55 L 22 175/96 99 Intake and Output 08/05/20 08/06/20 08/06/20 22:59 06:59 14:59 Intake Total 133.56 Balance 133.56 Intake: Intake, IV Titration 133.56 Amount Heparin Sod,Pork in 0.45% 133.56 NaCl 25,000 unit In 0.45 % NaCl 1 250ml.bag @ 10. 49 UNITS/KG/HR 9.992 mls/ hr IV .Q24H [facility] Rx#: [id number] Other: Weight 95.254 kg Results 08/06/20 04:31 08/06/20 04:31 Cardiac Enzymes 08/05/20 08/05/20 08/05/20 Range/Units 15:52 15:52 18:57 AST 26 (17-59) U/L Troponin I <0.012 <0.012 (0.000-0.034) ng/mL 08/05/20 Range/Units 22:33 AST (17-59) U/L Troponin I <0.012 (0.000-0.034) ng/mL Coagulation 08/05/20 08/05/20 08/06/20 Range/Units 15:52 22:33 05:30 PT 9.5 (9.0-12.0) sec APTT 23.1 36.8 H 33.7 H (22.0-30.0) sec CBC 08/05/20 08/06/20 Range/Units 15:52 04:31 WBC 6.4 4.6 (3.8-10.6) k/uL RBC 5.12 4.72 (4.30-5.90) m/uL Hgb 16.0 14.6 (13.0-17.5) gm/dL Hct 46.2 42.9 (39.0-53.0) % Plt Count 219 190 (150-450) k/uL Comprehensive Metabolic Panel 08/05/20 08/06/20 Range/Units 15:52 04:31 Sodium 140 139 (137-145) mmol/L Potassium 4.3 4.0 (3.5-5.1) mmol/L Chloride 103 108 H (98-107) mmol/L Carbon Dioxide 27 26 (22-30) mmol/L BUN 15 13 (9-20) mg/dL Creatinine 1.03 0.86 (0.66-1.25) mg/dL Glucose 88 89 (74-99) mg/dL Calcium 9.4 8.6 (8.4-10.2) mg/dL AST 26 (17-59) U/L ALT 32 (4-49) U/L Alkaline Phosphatase 78 (38-126) U/L Total Protein 7.3 (6.3-8.2) g/dL Albumin 4.6 (3.5-5.0) g/dL Current Medications Generic Name Dose Route Start Last Admin Trade Name Freq PRN Reason Stop Dose Admin Hydrocodone Bitart/Acetaminophen 1 each 08/05/20 18:00 08/06/20 07:49 Hydrocodone/Apap 10-325mg 1 Each Tab PO 1 each QID RAMILA Administration Aripiprazole 5 mg 08/06/20 09:00 Aripiprazole 5 Mg Tab PO DAILY [facility] Bupropion HCl 150 mg 08/06/20 09:00 Bupropion Xl 150 Mg Tab.Er.24h PO DAILY [facility] Heparin Sodium (Porcine) 0 unit 08/05/20 17:31 Heparin Sodium 1,000 Un/Ml (10ml Vl) IV PER PROTOCOL PRN Low PTT Protocol Heparin Sodium/Sodium Chloride 250 mls @ 9.992 mls/hr 08/05/20 17:45 08/06/20 07:04 25,000 unit/ Sodium Chloride IV 13.49 units/kg/hr .Q24H RAMILA 12.85 mls/hr Titration Protocol 10.49 UNITS/KG/HR Morphine Sulfate 4 mg 08/05/20 17:28 08/06/20 05:55 Morphine Sulfate 4 Mg/Ml Syringe IV 4 mg Q4HR PRN Administration Severe Pain Naloxone HCl 0.2 mg 08/05/20 17:21 Naloxone 0.4 Mg/Ml 1 Ml Vial IV Q2M PRN Opioid Reversal Intake and Output 08/05/20 08/06/20 08/06/20 22:59 06:59 14:59 Intake Total 133.56 Balance 133.56 Intake: Intake, IV Titration 133.56 Amount Heparin Sod,Pork in 0.45% 133.56 NaCl 25,000 unit In 0.45 % NaCl 1 250ml.bag @ 10. 49 UNITS/KG/HR 9.992 mls/ hr IV .Q24H [facility] Rx#: [id number] Other: Weight 95.254 kg 08/06/20 04:31 08/06/20 04:31
--- NOTE | 2020-08-06 13:05 | P.HPIM ---
History of Present Illness H&P Date: 08/06/20 Chief Complaint: Chest pain This is 60-year-old gentleman with past medical history of hypertension,chronic back pain, bipolar disorder, depression, anxiety, ongoing nicotine dependence presented to the ER with complaints of left-sided chest pain radiating to left jaw. Reports pain initiated with moving furniture, continuous pressure with accompanying shortness of breath and diaphoresis. Strong family history of CAD, reports brother had an [place] at the age of 45. Patient is a 1 pack a day smoker for many years. Denies lightheadedness dizziness or focal deficits. Denies nausea vomiting or diarrhea. Denies syncope. Denies chills fevers or congestion. On admission hypertensive with blood pressure 175/96 . Chest x-ray reported no acute pulmonary process. EKG reported normal sinus rhythm. Hematology, coagulation, chemistry panels unremarkable. Troponins negative 3. Coronavirus not detected. Afebrile, vital signs stable maintaining O2 sats in the high 90s to 100 on room air. Received nitroglycerin X1, baby aspirin, morphine in the ER with improvement in chest pain. Heparin drip initiated. Cardiology consulted. Review of Systems ROS Statement: Those systems with pertinent positive or pertinent negative responses have been documented in the HPI. ROS Other: All systems not noted in ROS Statement are negative. Past Medical History Past Medical History: No Reported History Additional Past Medical History / Comment(s): chronic back pain History of Any Multi-Drug Resistant Organisms: None Reported Past Surgical History: Orthopedic Surgery Past Psychological History: Anxiety, Depression Smoking Status: Current every day smoker Past Alcohol Use History: None Reported Past Drug Use History: None Reported Medications and Allergies Home Medications Medication Instructions Recorded Confirmed Type Hydrocodone/Acetaminophen [[place] 1 tab PO QID 09/13/16 08/05/20 History 10-325] buPROPion HCL [Wellbutrin XL] 150 mg PO DAILY 09/13/16 08/05/20 History ARIPiprazole [Abilify] 5 mg PO DAILY 12/10/19 08/05/20 History Aspirin 325 mg PO ONCE PRN 08/05/20 08/05/20 History Allergies Allergy/AdvReac Type Severity Reaction Status Date / Time No Known Allergies Allergy Verified 08/05/20 16:21 Physical Exam Vitals: Vital Signs Temp Pulse Pulse Resp BP BP Pulse Ox 08/06/20 07:00 97.4 F L 56 L 18 121/76 96 08/06/20 05:49 60 17 112/69 97 08/06/20 05:00 98.8 F 62 19 106/56 97 08/05/20 19:19 64 18 125/81 97 08/05/20 18:22 65 18 119/65 100 08/05/20 17:44 98.2 F 56 L 18 121/75 98 08/05/20 15:32 16 08/05/20 15:24 97.7 F 55 L 22 175/96 99 Intake and Output 08/05/20 08/06/20 08/06/20 22:59 06:59 14:59 Intake Total 133.56 Balance 133.56 Intake: Intake, IV Titration 133.56 Amount Heparin Sod,Pork in 0.45% 133.56 NaCl 25,000 unit In 0.45 % NaCl 1 250ml.bag @ 10. 49 UNITS/KG/HR 9.992 mls/ hr IV .Q24H [facility] Rx#: [id number] Other: Weight 95.254 kg 95.254 kg GENERAL: Sitting up in bed, no acute distress HEAD: Atraumatic, normocephalic. EYES: Pupils equal, round, and reactive to light, extraocular movements intact, sclera anicteric, conjunctiva normal. ENT: Oropharynx clear without exudates. Dry mucous membranes. NECK:Normal range of motion, supple without lymphadenopathy or JVD. LUNGS: Breath sounds clear to auscultation, bilateral bases diminished HEART: Heart S1, S2, no S3 or S4. Regular rate and rhythm. No murmurs, rubs or gallops. ABDOMEN: Soft, nontender, nondistended, normoactive bowel sounds. No guarding. No masses or organomegaly appreciated. EXTREMITIES: 2+ peripheral pulses. No edema, clubbing or cyanosis. No calf tenderness. NEUROLOGICAL: Pt oriented x 3. Cranial nerves II through XII grossly intact. Strength and sensation grossly intact. PSYCH: Alert and oriented 3, mood and affect normal SKIN: Warm, dry. Normal turgor. No rash Results CBC & Chem 7: 08/06/20 04:31 08/06/20 04:31 Labs: Abnormal Lab Results - Last 24 Hours (Table) 08/05/20 08/06/20 08/06/20 Range/Units 22:33 04:31 05:30 APTT 36.8 H 33.7 H (22.0-30.0) sec Chloride 108 H (98-107) mmol/L Thrombosis Risk Factor Assmnt - Choose All That Apply Each Factor Represents 1 point: Age 41-60 years Thrombosis Risk Factor Assessment Total Risk Factor Score: 1 Thrombosis Risk Factor Assessment Level: Low Risk Assessment and Plan Assessment: Chest pain, rule out acute coronary syndrome, in a patient with strong family history of CAD. Suspect muscloskeletal etiology. Hypertension Ongoing nicotine dependence Bipolar disorder Depression Anxiety Plan: Continue on current medication regime ,monitoring and symptomatic treatment. Anticoagulated on heparin drip. NPO. Cardiology consult in place, recommendations pending. Protonix ordered for GI prophylaxis. The impression and plan of care has been dictated as directed. : I performed a history and examination of this patient, discussed the same with the dictator. I agree with the dictator's note ,documented as a scribe. Any additional findings or plans will be noted.
[2020-08-06] MEDS: HYDROcodone/APAP 10-325MG 1 EACH TAB PO PRN ×2 (13:22→19:44)
[2020-08-06] MEDS: predniSONE 20 MG TAB PO SCH (13:23)
[2020-08-06] MEDS: NICOTINE 21MG/24HR PATCH TRANSDERM SCH (14:14)
--- NOTE | 2020-08-06 14:26 | CT ---
EXAMINATION TYPE: CT brain wo con DATE OF EXAM: 08/06/2020 COMPARISON: None INDICATION: Dizziness, dysarthria DLP: 1091 mGycm, Automated exposure control for dose reduction was used. CONTRAST: None CT of the brain is performed utilizing 3 mm thick sections through the posterior fossa and 3 mm thick sections through the remaining calvarium. Study is performed within 24 hours of arrival to the hosp [facility]. No abnormal hyperdensity is present to suggest an acute intracranial hemorrhage. No mass lesion is evident. No acute infarcts are evident. Ventricles and sulci are appropriate for the patient age. Paranasal sinuses and mastoid air cells within the [id number] are clear. IMPRESSIONS: 1. No acute intracranial process.
[2020-08-06 17:22] LABS: Glucose,Whole Blood 97 mg/dL (75-99)
[2020-08-06] MEDS: INSULIN ASPART (NovoLOG) 100 UNIT/ML VIAL SQ SCH ×2 (17:35→22:01)
[2020-08-06 19:55] LABS: Glucose,Whole Blood 181 mg/dL (75-99)
[2020-08-07 03:09] VITALS: RESP 16; TEMP 97.5
[2020-08-07 07:18] LABS: Glucose,Whole Blood 87 mg/dL (75-99)
[2020-08-07] MEDS: INSULIN ASPART (NovoLOG) 100 UNIT/ML VIAL SQ SCH ×2 (07:59→12:44)
[2020-08-07 08:09] VITALS: BP 129/71; PULSE 64
[2020-08-07] MEDS: ASPIRIN 81 MG PO SCH (08:16)
[2020-08-07] MEDS: buPROPion XL 150 MG TAB.ER.24H PO SCH (08:17)
[2020-08-07] MEDS: NICOTINE 21MG/24HR PATCH TRANSDERM SCH (08:17)
[2020-08-07] MEDS: PANTOPRAZOLE 40 MG/10 ML VIAL IVP SCH (08:17)
[2020-08-07] MEDS: predniSONE 20 MG TAB PO SCH (08:22)
[2020-08-07] MEDS: HYDROcodone/APAP 10-325MG 1 EACH TAB PO PRN (08:32)
--- NOTE | 2020-08-07 08:35 | ECHOS ---
Stress Test Results/Findings: Exam Performed: dobutamine stress echo Exam Date: 08/06/20 Reason for Exam: CP Height: 5 ft 10 in Weight: 95.25 kg Protocol: Dobutamine Stage: IV Duration of Exercise: 9.35 Resting Heart Rate: 55 Resting Blood Pressure: 112/49 Maximum Achieved Heart Rate: 123 Maximum Achieved Blood Pressure: 150/53 85% PMHR: 136 100% PMHR: 160 METS: Technologist Comment: Stress Test Results/Findings: This is Dr. Bagley dictating a report on the dobutamine stress echo of Brian Dickens. This patient admitted to the hospital with chest pain with history of smoking. Enzymes and EKGs were negative. Stress data: Baseline EKG showed sinus rhythm with normal AR interval and QRS duration. Blood pressure at rest is 112/49, pulse rate of 55. Patient was initiated on dobutamine and was titrated to 40 mics. Patient's maximal heart rate went up to only 123 with blood pressure 104 69. Patient complained of severe chest pain. The test was stopped patient was given nitro and also subsequently Lopressor. Patient's EKG did not show any changes.. Echo data Baseline echo images show normal wall motion and thickening. Echo images taken at low-dose, high-dose dobutamine showed progressive augmentation of the wall motion and thickening. However, patient did not achieve 85%. Heart rate. Final impression #1. Inconclusive dobutamine stress test as patient could not achieve 85% predicted heart rate. #2. At the level of exercise that patient has achieved, no evidence of inducible ischemia #3. Patient complain of atypical chest pain which gradually improved with nitro . If necessary, patient may be considered for a Lexiscan stress test or cardiac catheterization. If patient continues to have atypical chest pain., Computed tomography scan of the chest to be considered MTDD
[2020-08-07 12:03] LABS: Glucose,Whole Blood 102 mg/dL (75-99)
--- NOTE | 2020-08-07 12:18 | P.STRESS ---
- Stress Test Note Stress Test Results/Findings: Exam Performed: NM stress lexiscan cardiolite Exam Date: 08/07/20 Reason for Exam: CP Height: 5 ft 10 in Weight: 95.25 kg Protocol: LEXISCAN CARDIOLITE Stage: NA Duration of Exercise: NA Resting Heart Rate: 63 Resting Blood Pressure: 126/68 Maximum Achieved Heart Rate: 96 Maximum Achieved Blood Pressure: 153/85 85% PMHR: 136 100% PMHR: 160 METS: NA Technologist Comment: Stress Test Results/Findings: This is a 60-year-old gentleman with history of diabetes, smoking history, being evaluated for chest pain. Patient had inconclusive dobutamine echo yesterday. Stress data: Baseline EKG showed sinus rhythm at all when necessary, and QRS duration. Blood pressure at rest is 126/68, pulse rate of 63. A standard dose of Lexiscan was infused. EKGs taken during and after the infusion, did not reveal any changes of ischemia. Patient complained of some chest pressure during the infusion. Final impression: #1. Negative Lexiscan stress test #2. Report of an echo images to be given by the radiologist.
--- NOTE | 2020-08-07 12:41 | NM ---
EXAMINATION TYPE: NM stress lexiscan cardiolite DATE OF EXAM: 08/07/2020 COMPARISON: NONE HISTORY: Chest pain TECHNIQUE: After the intravenous administration of 9.9 mCi Tc 99m Sestamibi - Cardiolite resting SPE CT images acquired 45 minutes post injection. The patient received 0.4mg Lexiscan, 24.7 mCi Tc 99m Sestamibi - Stress images obtained [address] injection FINDINGS: Review of stress and rest SPECT images demonstrates no distinct perfusion abnormality. Gated analysi s shows normal wall motion with an estimated left ventricular ejection fraction of 63 %. IMPRESSION: No scintigraphic evidence for reversible ischemia.
[2020-08-07] MEDS: MORPHINE SULFATE 4 MG/ML SYRINGE IV PRN (12:44)
--- NOTE | 2020-08-07 13:19 | P.DS ---
Providers Date of admission: 08/07/20 12:01 Expected date of discharge: 08/07/20 Attending physician: Rajan Mackey Consults: 08/05/20 17:28 Consult Physician Urgent Consulting Provider: [facility] Consult Reason/Comments: acute chest pain, possible acs Do you want consulting provider notified?: Yes Primary care physician: [facility] Course: Final diagnoses Chest pain, rule out acute coronary syndrome, in a patient with strong family history of CAD. Suspect muscloskeletal etiology. Lexiscan pending. Hypertension Ongoing nicotine dependence Bipolar disorder Depression Anxiety Hospital course:This is 60-year-old gentleman with past medical history of hypertension,chronic back pain, bipolar disorder, depression, anxiety, ongoing nicotine dependence presented to the ER with complaints of left-sided chest pain radiating to left jaw. Reports pain initiated with moving furniture, continuous pressure with accompanying shortness of breath and diaphoresis. Strong family history of CAD, reports brother had an AR at the age of 45. Patient is a 1 pack a day smoker for many years. Denies lightheadedness dizziness or focal deficits. Denies nausea vomiting or diarrhea. Denies syncope. Denies chills fevers or congestion. On admission hypertensive with blood pressure 175/96 . Chest x-ray reported no acute pulmonary process. EKG reported normal sinus rhythm. Hematology, coagulation, chemistry panels unremarkable. Troponins negative 3. Coronavirus not detected. Afebrile, vital signs stable maintaining O2 sats in the high 90s to 100 on room air. Received nitroglycerin X1, baby aspirin, morphine in the ER with improvement in chest pain. Heparin drip initiated. Cardiology consulted. History the underwent inconclusive dobutamine stress test as patient could not achieve 85% predicted heart rate, complained of atypical chest pain during the test with reports of no evidence of inducible ischemia. Currently scheduled for Lexiscan stress test today. Denies chest pain, palpitations or shortness of breath. Patient will be discharged home today in stable condition with guarded prognosis, pending Lexiscan stress, then DC recommendations and clearance per cardiology. The impression and plan of care has been dictated as directed. : I performed a history and examination of this patient, discussed the same with the dictator. I agree with the dictator's note ,documented as a scribe. Any additional findings or plans will be noted. Patient Condition at Discharge: Stable Plan - Discharge Summary Discharge Rx Participant: No New Discharge Prescriptions: New Nicotine 21Mg/24Hr Patch [Habitrol] 1 patch TRANSDERM DAILY #30 patch Continue Hydrocodone/Acetaminophen [[place] 10-325] 1 tab PO QID buPROPion HCL [Wellbutrin XL] 150 mg PO DAILY ARIPiprazole [Abilify] 5 mg PO DAILY Aspirin 325 mg PO ONCE PRN PRN Reason: Chest Pain Discharge Medication List Hydrocodone/Acetaminophen [[place] 10-325] 1 tab PO QID 09/13/16 [History] buPROPion HCL [Wellbutrin XL] 150 mg PO DAILY 09/13/16 [History] ARIPiprazole [Abilify] 5 mg PO DAILY 12/10/19 [History] Aspirin 325 mg PO ONCE PRN 08/05/20 [History] Nicotine 21Mg/24Hr Patch [Habitrol] 1 patch TRANSDERM DAILY #30 patch 08/07/20 [Rx] Follow up Appointment(s)/Referral(s): Elvis Hoffmann Jr, [Primary Care Provider] - 3 Days Bony Bishop MD [STAFF PHYSICIAN] - 1 Week Activity/Diet/Wound Care/Special Instructions: Pending Lexiscan/echo-radiology, final DC recommendations and clearance from cardiology. No smoking.
[2020-08-07 13:41] LABS: Hemoglobin A1C 5.2 % (4.0-6.0)
--- NOTE | 2020-08-07 16:23 | ECHOS ---
Stress Test Results/Findings: Exam Performed: NM stress lexiscan cardiolite Exam Date: 08/07/20 Reason for Exam: CP Height: 5 ft 10 in Weight: 95.25 kg Protocol: LEXISCAN CARDIOLITE Stage: NA Duration of Exercise: NA Resting Heart Rate: 63 Resting Blood Pressure: 126/68 Maximum Achieved Heart Rate: 96 Maximum Achieved Blood Pressure: 153/85 85% PMHR: 136 100% PMHR: 160 METS: NA Technologist Comment: Stress Test Results/Findings: This is a 60-year-old gentleman with history of diabetes, smoking history, being evaluated for chest pain. Patient had inconclusive dobutamine echo yesterday. Stress data: Baseline EKG showed sinus rhythm at all when necessary, and QRS duration. Blood pressure at rest is 126/68, pulse rate of 63. A standard dose of Lexiscan was infused. EKGs taken during and after the infusion, did not reveal any changes of ischemia. Patient complained of some chest pressure during the infusion. Final impression: #1. Negative Lexiscan stress test #2. Report of an nuclear images to be given by the radiologist. SHENGD
[2020-08-08] MEDS ORDERED: PANTOPRAZOLE 40 MG TABLET PO SCH (07:30)
== END 2020-08-07 14:28 | disposition home or self-care (01) | DRG 313 ==
LOC: EC 15:21 → 6NMEDSUR 17:21 → OBSVTOIN 08-07 12:01
PROVIDERS: ADMIT Family Medicine; ATTEND Family Medicine
DX: R07.89 Other chest pain (principal); F17.210 Nicotine dependence, cigarettes, uncomplicated; F31.9 Bipolar disorder, unspecified; M54.9 Dorsalgia, unspecified; F41.9 Anxiety disorder, unspecified; G89.29 Other chronic pain; I10 Essential (primary) hypertension; X50.0XXA Overexertion from strenuous movement or load, initial encounter; Z79.899 Other long term (current) drug therapy; Z82.49 Family history of ischemic heart disease and other diseases of the circulatory system; Z79.82 Long term (current) use of aspirin; Z20.822 Contact with and (suspected) exposure to COVID-19
CPT/HCPCS: 36415; 70450; 71046; 78452; 80048; 80053; 83036; 83735; 84484; 85025; 85379; 85610; 85730; 87635; 93005; 93017; 93306; 93351; 96374; 96375; 99285

== ENCOUNTER 2020-08-23 16:27 | Emergency (ER) | payer MEDICARE, OTHER ==
[2020-08-23 16:32] VITALS: BP 147/78; PULSE 53; RESP 22; TEMP 98.6
[2020-08-23] MEDS ORDERED: SODIUM CHLORIDE 0.9% 1,000 ML IV STA (16:40)
[2020-08-23] MEDS ORDERED: KETOROLAC 15 MG/ML 1 ML VIAL IVP STA (16:40)
[2020-08-23] MEDS ORDERED: ONDANSETRON 4 MG/2 ML VIAL IVP STA (16:40)
--- NOTE | 2020-08-23 16:47 | ED ---
General Adult HPI - General Chief complaint: Abdominal Pain Stated complaint: vomiting Time Seen by Provider: 08/23/20 16:33 Source: patient, RN notes reviewed Mode of arrival: ambulatory Limitations: no limitations - History of Present Illness Initial comments: 60-year-old male with a past medical history of chronic back pain, chronic nausea for over one year presents to the emergency room for nausea and back pain. Patient reports that this worsened again today. States she has been dealing with this for over a year and has had several studies. He has seen a GI specialist and had multiple scopes, gallbladder testing. Patient states it just does not seem to go away. He is here today for relief from nausea. Denies abdominal pain. Denies fevers.Patient has no other complaints at this time including shortness of breath, chest pain, abdominal pain, headache, or visual changes. - Related Data Home Medications Medication Instructions Recorded Confirmed Hydrocodone/Acetaminophen [[place] 1 tab PO QID 09/13/16 08/23/20 10-325] buPROPion HCL [Wellbutrin XL] 150 mg PO DAILY 09/13/16 08/23/20 ARIPiprazole [Abilify] 5 mg PO HS 12/10/19 08/23/20 Allergies Allergy/AdvReac Type Severity Reaction Status Date / Time No Known Allergies Allergy Verified 08/23/20 16:58 Review of Systems ROS Statement: Those systems with pertinent positive or pertinent negative responses have been documented in the HPI. ROS Other: All systems not noted in ROS Statement are negative. Past Medical History Past Medical History: No Reported History Additional Past Medical History / Comment(s): chronic back pain History of Any Multi-Drug Resistant Organisms: None Reported Past Surgical History: Orthopedic Surgery Additional Past Surgical History / Comment(s): rt knne lt shoulder Past Psychological History: Anxiety, Depression Smoking Status: Current every day smoker Past Alcohol Use History: None Reported Past Drug Use History: Marijuana General Exam Limitations: no limitations General appearance: alert, in no apparent distress Head exam: Present: atraumatic, normocephalic, normal inspection Eye exam: Present: normal appearance, PERRL, EOMI. Absent: scleral icterus, conjunctival injection, periorbital swelling ENT exam: Present: normal exam, mucous membranes moist Neck exam: Present: normal inspection, full ROM. Absent: tenderness, meningismus, lymphadenopathy Respiratory exam: Present: normal lung sounds bilaterally. Absent: respiratory distress, wheezes, rales, rhonchi, stridor Cardiovascular Exam: Present: regular rate, normal rhythm, normal heart sounds. Absent: systolic murmur, diastolic murmur, rubs, gallop, clicks GI/Abdominal exam: Present: soft, normal bowel sounds. Absent: distended, tenderness, guarding, rebound, rigid Course Vital Signs 08/23/20 16:29 Temperature 98.6 F Pulse Rate 53 L Respiratory 22 Rate Blood Pressure 147/78 O2 Sat by Pulse 97 Oximetry Medical Decision Making - Medical Decision Making Vitals are stable. Patient well-appearing. He does not have any abdominal tenderness. Patient is complaining of chronic nausea and back pain. Patient does not have any bladder or bowel changes, saddle anesthesia, weakness of the legs, or fevers, no red flag symptoms. No tenderness of the abdomen. CBC CMP unremarkable. Patient was given some diuretic treatment and did have significant improvement in symptoms. At this time patient is stable for discharge home and outpatient follow-up with his GI doctor which to me is established. He will return for any worsening symptoms. - Lab Data Result diagrams: 08/23/20 16:58 08/23/20 16:58 Lab Results 08/23/20 08/23/20 Range/Units 16:58 16:58 WBC 7.6 (3.8-10.6) k/uL RBC 5.25 (4.30-5.90) m/uL Hgb 16.5 (13.0-17.5) gm/dL Hct 46.9 (39.0-53.0) % MCV 89.4 (80.0-100.0) fL MCH 31.4 (25.0-35.0) pg MCHC 35.1 (31.0-37.0) g/dL RDW 12.7 (11.5-15.5) % Plt Count 231 (150-450) k/uL MPV 7.5 Neutrophils % 85 % Lymphocytes % 11 % Monocytes % 3 % Eosinophils % 0 % Basophils % 0 % Neutrophils # 6.5 (1.3-7.7) k/uL Lymphocytes # 0.9 L (1.0-4.8) k/uL Monocytes # 0.2 (0-1.0) k/uL Eosinophils # 0.0 (0-0.7) k/uL Basophils # 0.0 (0-0.2) k/uL Sodium 140 (137-145) mmol/L Potassium 4.3 (3.5-5.1) mmol/L Chloride 107 (98-107) mmol/L Carbon Dioxide 23 (22-30) mmol/L Anion Gap 10 mmol/L BUN 14 (9-20) mg/dL Creatinine 0.73 (0.66-1.25) mg/dL Est GFR (CKD-EPI)AfAm >90 (>60 ml/min/1.73 sqM) Est GFR (CKD-EPI)NonAf >90 (>60 ml/min/1.73 sqM) Glucose 140 H (74-99) mg/dL Calcium 9.8 (8.4-10.2) mg/dL Total Bilirubin 0.7 (0.2-1.3) mg/dL AST 27 (17-59) U/L ALT 30 (4-49) U/L Alkaline Phosphatase 83 (38-126) U/L Total Protein 7.6 (6.3-8.2) g/dL Albumin 4.8 (3.5-5.0) g/dL Amylase 52 (30-110) U/L Lipase 69 (23-300) U/L Disposition Clinical Impression: Chronic nausea Disposition: HOME SELF-CARE Condition: Good Instructions (If sedation given, give patient instructions): Acute Nausea and Vomiting (ED) Additional Instructions: Please follow-up with your doctor. Return to the emergency room for any worsening symptoms. Is patient prescribed a controlled substance at d/c from ED?: No Referrals: Elvis Hoffmann Jr, [Primary Care Provider] - 1-2 days Time of Disposition: 17:42
[2020-08-23 17:15] LABS: Basophils % (A) 0 %; Eosinophils % (A) 0 %; HCT 46.9 % (39.0-53.0); HGB 16.5 gm/dL (13.0-17.5); Lymphocytes # (A) 0.9 k/uL (1.0-4.8); Lymphocytes % (A) 11 %; MCH 31.4 pg (25.0-35.0); MCHC 35.1 g/dL (31.0-37.0); MCV 89.4 fL (80.0-100.0); Mean Platelet Volume 7.5; Monocytes # (A) 0.2 k/uL (0-1.0); Monocytes % (A) 3 %; Neutrophils # (A) 6.5 k/uL (1.3-7.7); Neutrophils % (A) 85 %; Platelet Count 231 k/uL (150-450); RBC 5.25 m/uL (4.30-5.90); RDW 12.7 % (11.5-15.5); WBC 7.6 k/uL (3.8-10.6)
[2020-08-23 17:22] LABS: ALT 30 U/L (4-49); AST 27 U/L (17-59); African American GFR (CKD) >90 (>60 ml/min/1.73 sqM); Albumin 4.8 g/dL (3.5-5.0); Alkaline Phosphatase 83 U/L (38-126); Amylase 52 U/L (30-110); Anion Gap 10 mmol/L; Blood Urea Nitrogen 14 mg/dL (9-20); Calcium 9.8 mg/dL (8.4-10.2); Carbon Dioxide 23 mmol/L (22-30); Chloride 107 mmol/L (98-107); Glucose 140 mg/dL (74-99); Lipase 69 U/L (23-300); Non-African American GFR(CKD) >90 (>60 ml/min/1.73 sqM); Potassium 4.3 mmol/L (3.5-5.1); Sodium 140 mmol/L (137-145); Total Bilirubin 0.7 mg/dL (0.2-1.3); Total Protein 7.6 g/dL (6.3-8.2)
[2020-08-23] MEDS ORDERED: MORPHINE SULFATE 4 MG/ML SYRINGE IVP STA (17:40)
[2020-08-23 17:56] LABS: Appearance,Urine Clear (Clear); Bilirubin,Urine Negative (Negative); Blood,Urine Negative (Negative); Color,Urine Yellow; Glucose,Urine (UA) Trace (Negative); Ketones,Urine 2+ (Negative); Leukocyte Esterase,Urine Negative (Negative); Mucus,Urine Few /hpf; Nitrite,Urine Negative (Negative); Protein,Urine 1+ (Negative); RBC,Urine 1 /hpf (0-5); Specific Gravity,Urine 1.027 (1.001-1.035); Urobilinogen,Urine <2.0 mg/dL (<2.0); WBC,Urine 1 /hpf (0-5)
== END 2020-08-23 18:20 | disposition home or self-care (01) ==
LOC: EC 16:27
DX: R11.2 Nausea with vomiting, unspecified (principal); F17.200 Nicotine dependence, unspecified, uncomplicated; F12.90 Cannabis use, unspecified, uncomplicated
CPT/HCPCS: 36415; 80053; 82150; 83690; 85025; 81001; 99283; 96374; 96375 ×2; 96361; J2270; J2405; J1885

== ENCOUNTER 2020-10-19 10:47 | Emergency (ER) | payer MEDICARE, OTHER ==
[2020-10-19 10:52] VITALS: TEMP 98.5
[2020-10-19] MEDS ORDERED: MORPHINE SULFATE 4 MG/ML SYRINGE IV STA (11:02)
[2020-10-19] MEDS ORDERED: ONDANSETRON 4 MG/2 ML VIAL IVP STA (11:02)
[2020-10-19] MEDS ORDERED: SODIUM CHLORIDE 0.9% 1,000 ML IV STA (11:02)
--- NOTE | 2020-10-19 11:04 | ED ---
General Adult HPI - General Chief complaint: Nausea/Vomiting/Diarrhea Stated complaint: nausea, back pain Time Seen by Provider: 10/19/20 10:57 Source: patient, RN notes reviewed Mode of arrival: wheelchair Limitations: no limitations - History of Present Illness Initial comments: Patient is a 60-year-old male that presents to the emergency department c omplaining of back pain with nausea and vomiting. He does note that he has a history of kidney stones but has been several years. He noted that this all started early this morning around 3:30 AM has been unrelieved ear he notes that nothing makes the pain worse or better. He denied any hematochezia melena. Patient didn't appear to be uncomfortable and in mild to moderate amounts pain while sitting up in bed during the exam interview. He noted his pain was approximately a 7-8 out of 10. He denied any chest pain shortness of breath headache diarrhea constipation fever fatigue chills. - Related Data Home Medications Medication Instructions Recorded Confirmed Hydrocodone/Acetaminophen [[place] 1 tab PO QID 09/13/16 08/23/20 10-325] buPROPion HCL [Wellbutrin XL] 150 mg PO DAILY 09/13/16 08/23/20 ARIPiprazole [Abilify] 5 mg PO HS 12/10/19 08/23/20 Previous Rx's Medication Instructions Recorded Amoxicillin/Potassium Clav 1 tab PO Q8H 14 Days #42 tab 10/19/20 [Augmentin 875-125 Tablet] HYDROcodone/APAP 5-325MG [[place] 5] 1 each PO Q6HR PRN 3 Days #12 tab 10/19/20 Ondansetron Odt [Zofran Odt] 4 mg PO Q8HR PRN #10 tab 10/19/20 Allergies Allergy/AdvReac Type Severity Reaction Status Date / Time No Known Allergies Allergy Verified 10/19/20 10:49 Review of Systems ROS Statement: Those systems with pertinent positive or pertinent negative responses have been documented in the HPI. ROS Other: All systems not noted in ROS Statement are negative. Past Medical History Past Medical History: No Reported History Additional Past Medical History / Comment(s): chronic back pain History of Any Multi-Drug Resistant Organisms: None Reported Past Surgical History: Orthopedic Surgery Additional Past Surgical History / Comment(s): rt knne lt shoulder Past Psychological History: Anxiety, Depression Smoking Status: Current every day smoker Past Alcohol Use History: None Reported Past Drug Use History: Marijuana General Exam Limitations: no limitations General appearance: alert, in no apparent distress Head exam: Present: atraumatic, normocephalic, normal inspection Eye exam: Present: normal appearance, PERRL, EOMI. Absent: scleral icterus, co njunctival injection, periorbital swelling Neck exam: Present: normal inspection Respiratory exam: Present: normal lung sounds bilaterally. Absent: respiratory distress, wheezes, rales, rhonchi, stridor Cardiovascular Exam: Present: regular rate, normal rhythm, normal heart sounds. Absent: systolic murmur, diastolic murmur, rubs, gallop, clicks GI/Abdominal exam: Present: soft, tenderness (Left lower quadrant minimal.), normal bowel sounds. Absent: distended, guarding, rebound, rigid Extremities exam: Present: normal inspection, full ROM, normal capillary refill. Absent: tenderness, pedal edema, joint swelling, calf tenderness Back exam: Present: normal inspection, CVA tenderness (L) Neurological exam: Present: alert, oriented X3 Psychiatric exam: Present: normal affect, normal mood Skin exam: Present: warm, dry, intact, normal color. Absent: rash Course Vital Signs 10/19/20 10/19/20 10:49 12:55 Temperature 98.5 F Pulse Rate 51 L 54 L Respiratory 16 18 Rate Blood Pressure 169/79 157/85 O2 Sat by Pulse 97 100 Oximetry Medical Decision Making - Medical Decision Making 60-year-old male complaining of low back pain with nausea and vomiting 8 hours. Labs, CT of the abdomen and pelvis, 4 mg of morphine, 4 mg Zofran, 1 L normal saline ordered. Labs unremarkable. Computed tomography scan shows possible very acute diverticulitis. 15 mg of Toradol ordered for continuing pain. Case discussed with Dr. Obrien, patient discharge home on antibiotic therapy and pain control with follow-up to GI and primary care. - Lab Data Result diagrams: 10/19/20 11:27 10/19/20 11:27 Lab Results 10/19/20 10/19/20 10/19/20 Range/Units 11:27 11:27 12:46 WBC 6.6 (3.8-10.6) k/uL RBC 5.31 (4.30-5.90) m/uL Hgb 16.6 (13.0-17.5) gm/dL Hct 48.1 (39.0-53.0) % MCV 90.7 (80.0-100.0) fL MCH 31.2 (25.0-35.0) pg MCHC 34.4 (31.0-37.0) g/dL RDW 12.2 (11.5-15.5) % Plt Count 228 (150-450) k/uL MPV 7.8 Neutrophils % 76 % Lymphocytes % 19 % Monocytes % 3 % Eosinophils % 1 % Basophils % 0 % Neutrophils # 5.0 (1.3-7.7) k/uL Lymphocytes # 1.2 (1.0-4.8) k/uL Monocytes # 0.2 (0-1.0) k/uL Eosinophils # 0.1 (0-0.7) k/uL Basophils # 0.0 (0-0.2) k/uL Sodium 141 (137-145) mmol/L Potassium 4.1 (3.5-5.1) mmol/L Chloride 106 (98-107) mmol/L Carbon Dioxide 26 (22-30) mmol/L Anion Gap 9 mmol/L BUN 12 (9-20) mg/dL Creatinine 0.83 (0.66-1.25) mg/dL Est GFR (CKD-EPI)AfAm >90 (>60 ml/min/1.73 sqM) Est GFR (CKD-EPI)NonAf >90 (>60 ml/min/1.73 sqM) Glucose 132 H (74-99) mg/dL Calcium 9.7 (8.4-10.2) mg/dL Total Bilirubin 0.5 (0.2-1.3) mg/dL AST 26 (17-59) U/L ALT 32 (4-49) U/L Alkaline Phosphatase 92 (38-126) U/L Total Protein 7.3 (6.3-8.2) g/dL Albumin 4.7 (3.5-5.0) g/dL Amylase 50 (30-110) U/L Lipase 59 (23-300) U/L Urine Color Yellow Urine Appearance Clear (Clear) Urine pH 7.5 (5.0-8.0) Ur Specific [place] >1.050 H (1.001-1.035) Urine Protein Trace H (Negative) Urine Glucose (UA) Negative (Negative) Urine Ketones 1+ H (Negative) Urine Blood Negative (Negative) Urine Nitrite Negative (Negative) Urine Bilirubin Negative (Negative) Urine Urobilinogen <2.0 (<2.0) mg/dL Ur Leukocyte Esterase Negative (Negative) - Radiology Data Radiology results: report reviewed, image reviewed CT of the abdomen pelvis no evidence of acute abdominal or pelvic process. toshia hepatis and retroperitoneal lymphadenopathy stable compared to prior. Sigmoid diverticulosis with possible very acute diverticulitis no free air fluid or abscess and abdomen or pelvis. Disposition Clinical Impression: Diverticulitis Disposition: HOME SELF-CARE Condition: Stable Instructions (If sedation given, give patient instructions): Acute Nausea and Vomiting (ED) Additional Instructions: Please return to the Emergency Department if symptoms worsen or any other concerns. Take all medications as prescribed. Take antibiotics until complete. Follow-up with GI in the next several days. Follow-up primary care in the next several days. Prescriptions: Amoxicillin/Potassium Clav [Augmentin 875-125 Tablet] 1 tab PO Q8H 14 Days #42 tab HYDROcodone/APAP 5-325MG [[place] 5] 1 each PO Q6HR PRN 3 Days #12 tab PRN Reason: Pain Ondansetron Odt [Zofran Odt] 4 mg PO Q8HR PRN #10 tab PRN Reason: Nausea Is patient prescribed a controlled substance at d/c from ED?: Yes When asked, does pt state using other controlled substances?: No If prescribed controlled substance>3 days was MAPS reviewed?: Prescribed <3 Days If opioid is for acute pain is fill amount 7 days or less?: Yes Referrals: Elvis Hoffmann Jr, DO [Primary Care Provider] - 1-2 days Phillip Dow MD [STAFF PHYSICIAN] - 1-2 days Time of Disposition: 13:26
[2020-10-19 11:34] LABS: Basophils % (A) 0 %; Eosinophils # (A) 0.1 k/uL (0-0.7); Eosinophils % (A) 1 %; HCT 48.1 % (39.0-53.0); HGB 16.6 gm/dL (13.0-17.5); Lymphocytes # (A) 1.2 k/uL (1.0-4.8); Lymphocytes % (A) 19 %; MCH 31.2 pg (25.0-35.0); MCHC 34.4 g/dL (31.0-37.0); MCV 90.7 fL (80.0-100.0); Mean Platelet Volume 7.8; Monocytes # (A) 0.2 k/uL (0-1.0); Monocytes % (A) 3 %; Neutrophils % (A) 76 %; Platelet Count 228 k/uL (150-450); RBC 5.31 m/uL (4.30-5.90); RDW 12.2 % (11.5-15.5); WBC 6.6 k/uL (3.8-10.6)
[2020-10-19 11:47] LABS: ALT 32 U/L (4-49); AST 26 U/L (17-59); African American GFR (CKD) >90 (>60 ml/min/1.73 sqM); Albumin 4.7 g/dL (3.5-5.0); Alkaline Phosphatase 92 U/L (38-126); Amylase 50 U/L (30-110); Anion Gap 9 mmol/L; Blood Urea Nitrogen 12 mg/dL (9-20); Calcium 9.7 mg/dL (8.4-10.2); Carbon Dioxide 26 mmol/L (22-30); Chloride 106 mmol/L (98-107); Glucose 132 mg/dL (74-99); Lipase 59 U/L (23-300); Non-African American GFR(CKD) >90 (>60 ml/min/1.73 sqM); Potassium 4.1 mmol/L (3.5-5.1); Sodium 141 mmol/L (137-145); Total Protein 7.3 g/dL (6.3-8.2)
[2020-10-19 11:48] LABS: Total Bilirubin 0.5 mg/dL (0.2-1.3)
[2020-10-19] MEDS ORDERED: KETOROLAC 15 MG/ML 1 ML VIAL IVP STA (12:49)
[2020-10-19 12:57] VITALS: BP 157/85; PULSE 54; RESP 18
[2020-10-19 13:00] LABS: Appearance,Urine Clear (Clear); Bilirubin,Urine Negative (Negative); Blood,Urine Negative (Negative); Color,Urine Yellow; Glucose,Urine (UA) Negative (Negative); Ketones,Urine 1+ (Negative); Leukocyte Esterase,Urine Negative (Negative); Nitrite,Urine Negative (Negative); PH, Urine 7.5 (5.0-8.0); Protein,Urine Trace (Negative); Urobilinogen,Urine <2.0 mg/dL (<2.0)
[2020-10-19 13:02] LABS: Specific Gravity,Urine >1.050 (1.001-1.035)
--- NOTE | 2020-10-19 13:11 | CT ---
EXAMINATION TYPE: CT abdomen pelvis w con DATE OF EXAM: 10/19/2020 COMPARISON: 12/10/2019 HISTORY: 60 years old male with severe back pain more on the right CT DLP: 983.2 mGycm, Automated Exposure Control for Dose Reduction was Utilized. CONTRAST: CT scan of the abdomen and pelvis is performed with oral and with IV Contrast, patient injected with 100 mL of Isovue 300. FINDINGS: LUNG BASES: No significant abnormality is appreciated. INCLUDED CARDIAC STRUCTURES: Unremarkable LIVER: Tiny subcentimeter low attenuating lesions in the right hepatic lobe too small to visualize st atistically likely to represent cysts. GALLBLADDER : No significant abnormality is appreciated. BILIARY TREE: No abnormal biliary tree dilation. PANCREAS: No significant abnormality is seen. SPLEEN: No significant abnormality is seen. ADRENALS: No significant abnormality is seen. KIDNEYS AND URETERS: No significant abnormality is seen. Retrocardiac course of the left renal vein n oted. URINARY BLADDER: No significant abnormality is appreciated. PROSTATE: Prominent in size ESOPHAGUS: No significant abnormality is seen. STOMACH: No significant abnormality is seen. SMALL BOWEL: No significant abnormality is seen. LARGE BOWEL: Distal descending and sigmoid diverticulosis, minimal stranding around the sigmoid noted may represent vascular congestion versus of acute diverticulitis. No evidence of abscess or bowel ob struction. APPENDIX: Not definitely identified. HERNIAS: Small fat-containing right inguinal hernia. PERITONEUM/MESENTRY: No pneumoperitoneum or ascites. LYMPH NODES: There is a 2.4 x 1.3 cm and a 2.0 x 0.8 cm lymph nodes in the mar hepatis which are st able in size compared to prior. There is a 2.1 x 1.0 cm left para-aortic lymph node at the level of t he SMA is relatively stable in size. Multiple additional prominent retroperitoneal lymph nodes are de monstrated. MAJOR VASCULAR STRUCTURES: Nonaneurysmal aorta with atherosclerotic calcifications. Here vena cava an d normal location. OSSEOUS STRUCTURES: No acute osseous abnormality. Moderate degenerative changes seen in the lower lum bar spine most apparent at L4-5 and L5-S1. IMPRESSION: 1. No evidence of acute abdominal or pelvic process. 2. Mar hepatis and retroperitoneal lymphadenopathy stable compared to prior. 3. Sigmoid diverticulosis with possible very acute diverticulitis, no free air fluid or abscess in th e abdomen or pelvis.
== END 2020-10-19 13:46 | disposition home or self-care (01) ==
LOC: EC 10:47
DX: K57.32 Diverticulitis of large intestine without perforation or abscess without bleeding (principal); F32.9 Major depressive disorder, single episode, unspecified; F41.9 Anxiety disorder, unspecified; F17.200 Nicotine dependence, unspecified, uncomplicated; F12.90 Cannabis use, unspecified, uncomplicated; Z79.891 Long term (current) use of opiate analgesic; Z79.899 Other long term (current) drug therapy
CPT/HCPCS: 36415; 80053; 82150; 83690; 85025; 81003; 74177; 96374; 96375 ×2; 99284; J2270; J2405; J1885; Q9967

== ENCOUNTER 2020-10-21 11:19 | Emergency (ER) | payer MEDICARE, OTHER ==
[2020-10-21 11:33] VITALS: BP 136/79; PULSE 46; RESP 16; TEMP 98.3
[2020-10-21] MEDS ORDERED: MORPHINE SULFATE 4 MG/ML SYRINGE IVP STA ×2 (11:59→13:03)
[2020-10-21] MEDS ORDERED: ONDANSETRON 4 MG/2 ML VIAL IVP STA (11:59)
[2020-10-21 12:41] LABS: African American GFR (CKD) >90 (>60 ml/min/1.73 sqM); Anion Gap 7 mmol/L; Blood Urea Nitrogen 16 mg/dL (9-20); Calcium 9.6 mg/dL (8.4-10.2); Carbon Dioxide 25 mmol/L (22-30); Chloride 106 mmol/L (98-107); Glucose 137 mg/dL (74-99); Non-African American GFR(CKD) >90 (>60 ml/min/1.73 sqM); Potassium 4.2 mmol/L (3.5-5.1); Sodium 138 mmol/L (137-145)
[2020-10-21 12:45] LABS: Basophils % (A) 0 %; Eosinophils % (A) 0 %; HCT 46.6 % (39.0-53.0); HGB 15.7 gm/dL (13.0-17.5); Lymphocytes # (A) 1.3 k/uL (1.0-4.8); Lymphocytes % (A) 17 %; MCH 30.6 pg (25.0-35.0); MCHC 33.8 g/dL (31.0-37.0); MCV 90.5 fL (80.0-100.0); Mean Platelet Volume 7.2; Monocytes # (A) 0.2 k/uL (0-1.0); Monocytes % (A) 3 %; Neutrophils # (A) 5.8 k/uL (1.3-7.7); Neutrophils % (A) 78 %; Platelet Count 220 k/uL (150-450); RBC 5.15 m/uL (4.30-5.90); RDW 12.8 % (11.5-15.5); WBC 7.4 k/uL (3.8-10.6)
--- NOTE | 2020-10-21 12:54 | XR ---
EXAMINATION TYPE: XR lumbar spine 2 or 3V DATE OF EXAM: 10/21/2020 CLINICAL HISTORY: pain TECHNIQUE: Three views of the lumbar spine are submitted. COMPARISON: None. FINDINGS: There are 5 lumbar type vertebral bodies identified. The lumbar spine shows satisfactory alignment w ithout evidence of acute fracture or dislocation. Vertebral body heights are within normal limits. Mo derate degenerative disc space narrowing at L4-5 and L5-S1. Ventral and dorsal spondylosis. The overl reina soft tissue appears unremarkable. IMPRESSION: No acute fracture or dislocation is seen in the lumbar spine. ICD 10 NO FRACTURE, INITIAL EVALUATION
[2020-10-21] MEDS ORDERED: ONDANSETRON 4 MG ODT STARTER PACK 2 TAB BTL PO STA (13:03)
--- NOTE | 2020-10-21 13:08 | ED ---
Back Pain HPI - General Chief Complaint: Back Pain/Injury Stated Complaint: back pain, nausea/vomiting Time Seen by Provider: 10/21/20 11:38 Source: patient, RN notes reviewed Limitations: no limitations - History of Present Illness Initial Comments: Patient is a 60-year-old male that presents to emergency room complaining of bilateral low back pain. He denied any injury or trauma low back. He notes that he is seen at the pain clinic. He notes that about once a month he gets sick. He notes that he is nauseous, but only spitting up saliva and phlegm. He denied any change in bowel habits. He denied any abdominal pain chest pain shortness of breath headache diarrhea constipation fever fatigue chills. Patient was otherwise well-appearing. - Related Data Home Medications Medication Instructions Recorded Confirmed Hydrocodone/Acetaminophen [[place] 1 tab PO QID 09/13/16 08/23/20 10-325] buPROPion HCL [Wellbutrin XL] 150 mg PO DAILY 09/13/16 08/23/20 ARIPiprazole [Abilify] 5 mg PO HS 12/10/19 08/23/20 Previous Rx's Medication Instructions Recorded Amoxicillin/Potassium Clav 1 tab PO Q8H 14 Days #42 tab 10/19/20 [Augmentin 875-125 Tablet] Ondansetron Odt [Zofran Odt] 4 mg PO Q8HR PRN #10 tab 10/19/20 Allergies Allergy/AdvReac Type Severity Reaction Status Date / Time No Known Allergies Allergy Verified 10/21/20 11:32 Review of Systems ROS Statement: Those systems with pertinent positive or pertinent negative responses have been documented in the HPI. ROS Other: All systems not noted in ROS Statement are negative. Past Medical History Past Medical History: No Reported History Additional Past Medical History / Comment(s): chronic back pain History of Any Multi-Drug Resistant Organisms: None Reported Past Surgical History: Orthopedic Surgery Additional Past Surgical History / Comment(s): rt knne lt shoulder Past Psychological History: Anxiety, Depression Smoking Status: Current every day smoker Past Alcohol Use History: None Reported Past Drug Use History: Marijuana General Exam Limitations: no limitations General appearance: alert, in no apparent distress Head exam: Present: atraumatic, normocephalic, normal inspection Eye exam: Present: normal appearance, PERRL, EOMI. Absent: scleral icterus, conjunctival injection, periorbital swelling Neck exam: Present: normal inspection Respiratory exam: Present: normal lung sounds bilaterally. Absent: respiratory distress, wheezes, rales, rhonchi, stridor Cardiovascular Exam: Present: regular rate, normal rhythm, normal heart sounds. Absent: systolic murmur, diastolic murmur, rubs, gallop, clicks GI/Abdominal exam: Present: soft, normal bowel sounds. Absent: distended, tenderness, guarding, rebound, rigid Extremities exam: Present: normal inspection, full ROM, normal capillary refill. Absent: tenderness, pedal edema, joint swelling, calf tenderness Back exam: Present: tenderness (I lateral low back.) Neurological exam: Present: alert, oriented X3 Psychiatric exam: Present: normal affect, normal mood Skin exam: Present: warm, dry, intact, normal color. Absent: rash Course Vital Signs 10/21/20 11:32 Temperature 98.3 F Pulse Rate 46 L Respiratory 16 Rate Blood Pressure 136/79 O2 Sat by Pulse 98 Oximetry Medical Decision Making - Medical Decision Making A she is a 60-year-old male presenting with low back pain. Labs, x-ray lumbar spine, 4 mg of morphine, 4 mg of Zofran ordered. Labs unremarkable, similar to previous study done several days ago. Patient stated that he only wanted symptom medic control the pain and nausea. Patient states that he is not allowed be prescribed pain medications as he had a pain medication contract. Case discussed with Dr. Obrien, patient can discharge home with follow-up to pain clinic. - Lab Data Result diagrams: 10/21/20 12:15 10/21/20 12:15 Lab Results 10/21/20 10/21/20 Range/Units 12:15 12:15 WBC 7.4 (3.8-10.6) k/uL RBC 5.15 (4.30-5.90) m/uL Hgb 15.7 (13.0-17.5) gm/dL Hct 46.6 (39.0-53.0) % MCV 90.5 (80.0-100.0) fL MCH 30.6 (25.0-35.0) pg MCHC 33.8 (31.0-37.0) g/dL RDW 12.8 (11.5-15.5) % Plt Count 220 (150-450) k/uL MPV 7.2 Neutrophils % 78 % Lymphocytes % 17 % Monocytes % 3 % Eosinophils % 0 % Basophils % 0 % Neutrophils # 5.8 (1.3-7.7) k/uL Lymphocytes # 1.3 (1.0-4.8) k/uL Monocytes # 0.2 (0-1.0) k/uL Eosinophils # 0.0 (0-0.7) k/uL Basophils # 0.0 (0-0.2) k/uL Sodium 138 (137-145) mmol/L Potassium 4.2 (3.5-5.1) mmol/L Chloride 106 (98-107) mmol/L Carbon Dioxide 25 (22-30) mmol/L Anion Gap 7 mmol/L BUN 16 (9-20) mg/dL Creatinine 0.75 (0.66-1.25) mg/dL Est GFR (CKD-EPI)AfAm >90 (>60 ml/min/1.73 sqM) Est GFR (CKD-EPI)NonAf >90 (>60 ml/min/1.73 sqM) Glucose 137 H (74-99) mg/dL Calcium 9.6 (8.4-10.2) mg/dL - Radiology Data Radiology results: report reviewed, image reviewed Lumbar x-ray: No acute fracture dislocation is seen lumbar spine. Disposition Clinical Impression: Low back pain Disposition: HOME SELF-CARE Condition: Stable Instructions (If sedation given, give patient instructions): Acute Low Back Pain (ED) Additional Instructions: Please return to the Emergency Department if symptoms worsen or any other concerns. Continue take at home pain medications as prescribed. Take Zofran as prescribed. Follow-up with pain clinic in the next few days. Avoid any strenuous activity or exercise. Is patient prescribed a controlled substance at d/c from ED?: No Referrals: Elvis Hoffmann Jr, [Primary Care Provider] - 1-2 days Time of Disposition: 13:10
== END 2020-10-21 13:26 | disposition home or self-care (01) ==
LOC: EC 11:19
DX: M54.5 Low back pain (principal); F32.9 Major depressive disorder, single episode, unspecified; F41.9 Anxiety disorder, unspecified; F17.200 Nicotine dependence, unspecified, uncomplicated; F12.90 Cannabis use, unspecified, uncomplicated; Z79.891 Long term (current) use of opiate analgesic; Z79.899 Other long term (current) drug therapy
CPT/HCPCS: 36415; 80048; 85025; 72100; 96374; 96376; 96375; 99284; J2270; J2405; S0119

== ENCOUNTER 2021-07-02 09:48 | Emergency (ER) | payer MEDICARE, OTHER ==
[2021-07-02] MEDS ORDERED: PANTOPRAZOLE 40 MG/10 ML VIAL IVP STA (10:26)
[2021-07-02] MEDS ORDERED: MORPHINE SULFATE 4 MG/ML SYRINGE IV STA (10:26)
[2021-07-02] MEDS ORDERED: SODIUM CHLORIDE 0.9% 1,000 ML IV STA (10:26)
[2021-07-02] MEDS ORDERED: METOCLOPRAMIDE 5 MG/ML 2 ML VIAL IVP STA (10:26)
[2021-07-02] MEDS ORDERED: diphenhydrAMINE 50 MG/ML 1 ML VIAL IVP STA (10:26)
[2021-07-02 10:46] LABS: Basophils % (A) 0 %; Eosinophils % (A) 0 %; HCT 49.2 % (39.0-53.0); HGB 17.1 gm/dL (13.0-17.5); Lymphocytes # (A) 1.3 k/uL (1.0-4.8); Lymphocytes % (A) 17 %; MCH 31.4 pg (25.0-35.0); MCHC 34.8 g/dL (31.0-37.0); MCV 90.2 fL (80.0-100.0); Mean Platelet Volume 7.2; Monocytes # (A) 0.2 k/uL (0-1.0); Monocytes % (A) 3 %; Neutrophils # (A) 5.9 k/uL (1.3-7.7); Neutrophils % (A) 78 %; Platelet Count 230 k/uL (150-450); RBC 5.46 m/uL (4.30-5.90); RDW 13.5 % (11.5-15.5); WBC 7.6 k/uL (3.8-10.6)
[2021-07-02 11:03] LABS: INR 0.9 (<1.2); Partial Thromboplastin Time 23.7 sec (22.0-30.0); Prothrombin Time 9.9 sec (9.0-12.0)
[2021-07-02 11:05] LABS: ALT 30 U/L (4-49); AST 32 U/L (17-59); African American GFR (CKD) >90 (>60 ml/min/1.73 sqM); Albumin 4.8 g/dL (3.5-5.0); Alkaline Phosphatase 94 U/L (38-126); Amylase 55 U/L (30-110); Anion Gap 9 mmol/L; Blood Urea Nitrogen 16 mg/dL (9-20); Calcium 9.4 mg/dL (8.4-10.2); Carbon Dioxide 22 mmol/L (22-30); Chloride 107 mmol/L (98-107); Glucose 117 mg/dL (74-99); Lipase 67 U/L (23-300); Non-African American GFR(CKD) >90 (>60 ml/min/1.73 sqM); Potassium 4.2 mmol/L (3.5-5.1); Sodium 138 mmol/L (137-145); Total Bilirubin 0.9 mg/dL (0.2-1.3)
--- NOTE | 2021-07-02 11:33 | CT ---
EXAMINATION TYPE: CT abdomen pelvis w con DATE OF EXAM: 07/02/2021 COMPARISON: 10/19/2020 HISTORY: 61-year-old male acute, nonlocalized, abdominal pain TECHNIQUE: Contiguous axial scanning of the abdomen and pelvis following administration of 100 ml Iso kaden 300 IV contrast. Delayed images through the kidneys and coronal/sagittal reconstructions perform ed. CT DLP: 1020.6 mGycm Automated exposure control for dose reduction was used. FINDINGS: Heart normal size without pericardial effusion. Lung bases clear without pleural effusion. Tiny hiatal hernia. There is mild fold thickening throughout the stomach. Liver borderline enlarged at 17.9 cm. No focal lesion seen. Portal venous system is patent. No biliar y ductal dilatation. Gallbladder, adrenal glands, kidneys, spleen, and pancreas within normal limits. Retroaortic left zaria al vein. Mild to moderate arthroscopic calcifications infrarenal abdominal aorta and common iliac art eries. Unchanged 1.8 x 0.9 cm low-density oval nodule left periaortic region at the level of the adrenal gla nds. Stability suggesting a benign etiology. Some scattered prominent fluid-filled small bowel loops mid to lower abdomen. No dilated small bowel, free fluid, or free air. Normal appendix. Sigmoid diverticulosis. Long segment circumferential wall thickening involving the descending and sig moid colon. Inflammatory changes do not appear to be particularly centered over any of the sigmoid di verticula. Bladder urine distended. Prostate gland mildly enlarged at 4.6 cm wide. Pelvic fluid. No abnormal flu id collection in the pelvis or pelvic lymphadenopathy. Bones: Mild degenerative change of the hips. Mild degenerative change bilateral SI joints. Moderate to advanced degenerative disc disease L4-L5 and L5-S1. Facet arthropathy lower lumbar spine. IMPRESSION: 1. LONG SEGMENT CIRCUMFERENTIAL WALL THICKENING DESCENDING AND SIGMOID COLON. CORRELATE FOR NONSPECIF IC INFECTIOUS OR INFLAMMATORY COLITIS. 2. WHILE THERE IS SIGMOID DIVERTICULOSIS, INFLAMMATORY CHANGES DO NOT APPEAR TO BE PARTICULARLY CENTE RED OVER ANY DIVERTICULA. THIS ARGUES AGAINST ACUTE DIVERTICULITIS. 3. MILD FOLD THICKENING THROUGHOUT THE STOMACH, POSSIBLE CHRONIC GASTRITIS. CLINICALLY CORRELATE. THE RE MAY BE A CONCURRENT ENTERITIS GIVEN PROMINENT FLUID-FILLED SMALL BOWEL LOOPS MID AND LOWER ABDOMEN .
--- NOTE | 2021-07-02 11:36 | XR ---
EXAMINATION TYPE: XR chest 2V DATE OF EXAM: 07/02/2021 COMPARISON: Chest x-ray 05/05/2021 HISTORY: Abdominal pain, lower chest pain TECHNIQUE: Frontal and lateral views of the chest are obtained. FINDINGS: There is no focal air space opacity, pleural effusion, or pneumothorax seen. The cardiac silhouette size is within normal limits. The osseous structures are intact. IMPRESSION: No acute cardiopulmonary process.
[2021-07-02] MEDS ORDERED: MORPHINE SULFATE 4 MG/ML SYRINGE IVP STA (12:21)
[2021-07-02 12:46] VITALS: BP 152/70; PULSE 58; RESP 20; TEMP 97.8
[2021-07-02 12:59] LABS: Appearance,Urine Clear (Clear); Bilirubin,Urine Negative (Negative); Blood,Urine Negative (Negative); Color,Urine Yellow; Glucose,Urine (UA) Negative (Negative); Ketones,Urine 3+ (Negative); Leukocyte Esterase,Urine Negative (Negative); Nitrite,Urine Negative (Negative); PH, Urine 7.5 (5.0-8.0); Protein,Urine Trace (Negative); Specific Gravity,Urine >1.050 (1.001-1.035); Urobilinogen,Urine <2.0 mg/dL (<2.0)
--- NOTE | 2021-07-02 13:12 | ED ---
General Adult HPI - General Chief complaint: Chest Pain Stated complaint: chest pain Time Seen by Provider: 07/02/21 09:54 Source: patient, RN notes reviewed, old records reviewed Mode of arrival: ambulatory Limitations: no limitations - History of Present Illness Initial comments: Patient is a 61-year-old male with past medical history remarkable for d iverticulosis, chronic back pain who presents emergency Department complaining of nausea, vomiting as well as burning chest pain that has been ongoing all morning. States he woke up nauseous. Is complaining of generalized abdominal discomfort. His no cardiac history. Describes a burning chest pain that is essentially substernal. Denies any difficulty breathing. Denies any fevers, chills, cough. Denies any diarrhea. Denies any concerned for constipation or urinary complaints. Has no other acute complaints at this time. - Related Data Home Medications Medication Instructions Recorded Confirmed Hydrocodone/Acetaminophen [[place] 1 tab PO QID 09/13/16 07/02/21 10-325] buPROPion HCL [Wellbutrin XL] 150 mg PO DAILY 09/13/16 07/02/21 ARIPiprazole [Abilify] 5 mg PO HS 12/10/19 07/02/21 Halobetasol Propionate [Ultravate 1 applic TOPICAL BID 07/02/21 07/02/21 0.05%] Previous Rx's Medication Instructions Recorded Amoxicillin/Potassium Clav 1 tab PO Q12HR 7 Days #14 tab 07/02/21 [Augmentin 875-125 Tablet] Famotidine [Pepcid] 20 mg PO DAILY 14 Days #14 tablet 07/02/21 Ondansetron [Zofran ODT] 4 mg PO Q8HR PRN 3 Days #9 tab 07/02/21 Allergies Allergy/AdvReac Type Severity Reaction Status Date / Time No Known Allergies Allergy Verified 07/02/21 10:37 Review of Systems ROS Statement: Those systems with pertinent positive or pertinent negative responses have been documented in the HPI. Review of Systems: CONST: Denies fever EYES: Denies blurry vision ENT: Denies nasal congestion C/V: Denies Chest pain RESP: Denies shortness of breath GI: Endorses abdominal pain : Denies dysuria SKIN: Denies rash. MSK: Denies joint pain. NEURO: Denies headache ROS Other: All systems not noted in ROS Statement are negative. Past Medical History Past Medical History: No Reported History Additional Past Medical History / Comment(s): chronic back pain, diverticulitis History of Any Multi-Drug Resistant Organisms: None Reported Past Surgical History: Orthopedic Surgery Additional Past Surgical History / Comment(s): rt knne lt shoulder Past Psychological History: Anxiety, Depression Smoking Status: Current every day smoker Past Alcohol Use History: None Reported Past Drug Use History: Marijuana General Exam - General Exam Comments Initial Comments: General: Appears in mild distress secondary to active nausea and vomiting. HEAD: Normal with no signs of head trauma. EYES: PERRLA, EOMI, conjunctiva normal, no discharge. ENT: Hearing grossly intact, normal oropharynx. Dry mucous membranes. RESPIRATORY: Clear breath sounds bilaterally. No wheezes, rales, or rhonchi. C/V: Regular rate and rhythm. S1 and S2 auscultated, no edema, peripheral pu lses 2+ and intact throughout ABD: Soft, nondistended. Patient is tender to palpation epigastric region. Patient also some mild tetanus palpation in the left lower quadrant. EXT: Normal range of motion, no obvious deformity SKIN: No rashes or lesions observed on exposed skin. NEURO: Alert and oriented 4. No focal deficits. Limitations: no limitations Course Vital Signs 07/02/21 07/02/21 09:50 12:43 Temperature 97 F L 97.8 F Pulse Rate 54 L 58 L Respiratory 18 20 Rate Blood Pressure 155/76 152/70 O2 Sat by Pulse 97 97 Oximetry Medical Decision Making - Medical Decision Making Based on the patient's presentation and physical exam, I'm concerned for was likely intra-abdominal pathology for his current symptoms. Due to his history diverticulosis/70 colitis as well as left lower quadrant pain, I would like to obtain a CT abdomen and pelvis in addition to abdominal laboratory studies. He was in agreement this plan. He will be sent likely treatment with a fluid bolus as well as IV analgesia and a GI cocktail. Cardiac labs also be obtained. EKG shows no signs of acute ischemia. Chest x-ray reveals no acute cardiopulmonary process. CT of the pelvis reveals diverticulosis without dk diverticulitis. It also reveals colitis. Possible chronic gastritis as well. Laboratory studies are remarkable for 3+ ketones in the urine. Troponin is negative. Remainder the labs are unremarkable. On reevaluation, patient is feeling improved. He is tolerating oral food. I did discuss with him the results of his laboratory studies and imaging. Due to his history diverticulitis, as well as close relation of the inflammatory response as well as the sigmoid colon, we will empirically prescribed him Augmentin twice a day for the next7 days. He was in agreement with this plan. he will also be given Pepcid and Zofran. Strict return precautions were provided. Patient was in agreement this plan. I will provide the patient with a prescription for Augmentin, Pepcid, Zofran. I instructed the patient to follow up with their PCP in the next 3 days. I explained that the patient should return to the emergency department if they experience any worsening symptoms. Strict return precautions were discussed with the patient. The patient expressed understanding of these instructions. I answered all questions that the patient had. The patient was discharged home in fair condition with their prescriptions and follow up information. - Lab Data Result diagrams: 07/02/21 10:30 07/02/21 10:30 Lab Results 07/02/21 07/02/21 07/02/21 Range/Units 10:30 10:30 10:30 WBC 7.6 (3.8-10.6) k/uL RBC 5.46 (4.30-5.90) m/uL Hgb 17.1 (13.0-17.5) gm/dL Hct 49.2 (39.0-53.0) % MCV 90.2 (80.0-100.0) fL MCH 31.4 (25.0-35.0) pg MCHC 34.8 (31.0-37.0) g/dL RDW 13.5 (11.5-15.5) % Plt Count 230 (150-450) k/uL MPV 7.2 Neutrophils % 78 % Lymphocytes % 17 % Monocytes % 3 % Eosinophils % 0 % Basophils % 0 % Neutrophils # 5.9 (1.3-7.7) k/uL Lymphocytes # 1.3 (1.0-4.8) k/uL Monocytes # 0.2 (0-1.0) k/uL Eosinophils # 0.0 (0-0.7) k/uL Basophils # 0.0 (0-0.2) k/uL PT 9.9 (9.0-12.0) sec INR 0.9 (<1.2) APTT 23.7 (22.0-30.0) sec Sodium 138 (137-145) mmol/L Potassium 4.2 (3.5-5.1) mmol/L Chloride 107 (98-107) mmol/L Carbon Dioxide 22 (22-30) mmol/L Anion Gap 9 mmol/L BUN 16 (9-20) mg/dL Creatinine 0.81 (0.66-1.25) mg/dL Est GFR (CKD-EPI)AfAm >90 (>60 ml/min/1.73 sqM) Est GFR (CKD-EPI)NonAf >90 (>60 ml/min/1.73 sqM) Glucose 117 H (74-99) mg/dL Plasma Lactic Acid Rakesh (0.7-2.0) mmol/L Calcium 9.4 (8.4-10.2) mg/dL Total Bilirubin 0.9 (0.2-1.3) mg/dL AST 32 (17-59) U/L ALT 30 (4-49) U/L Alkaline Phosphatase 94 (38-126) U/L Troponin I (0.000-0.034) ng/mL Total Protein 8.0 (6.3-8.2) g/dL Albumin 4.8 (3.5-5.0) g/dL Amylase 55 (30-110) U/L Lipase 67 (23-300) U/L Urine Color Urine Appearance (Clear) Urine pH (5.0-8.0) Ur Specific [place] (1.001-1.035) Urine Protein (Negative) Urine Glucose (UA) (Negative) Urine Ketones (Negative) Urine Blood (Negative) Urine Nitrite (Negative) Urine Bilirubin (Negative) Urine Urobilinogen (<2.0) mg/dL Ur Leukocyte Esterase (Negative) 07/02/21 07/02/21 07/02/21 Range/Units 10:30 10:30 12:21 WBC (3.8-10.6) k/uL RBC (4.30-5.90) m/uL Hgb (13.0-17.5) gm/dL Hct (39.0-53.0) % MCV (80.0-100.0) fL MCH (25.0-35.0) pg MCHC (31.0-37.0) g/dL RDW (11.5-15.5) % Plt Count (150-450) k/uL MPV Neutrophils % % Lymphocytes % % Monocytes % % Eosinophils % % Basophils % % Neutrophils # (1.3-7.7) k/uL Lymphocytes # (1.0-4.8) k/uL Monocytes # (0-1.0) k/uL Eosinophils # (0-0.7) k/uL Basophils # (0-0.2) k/uL PT (9.0-12.0) sec INR (<1.2) APTT (22.0-30.0) sec Sodium (137-145) mmol/L Potassium (3.5-5.1) mmol/L Chloride (98-107) mmol/L Carbon Dioxide (22-30) mmol/L Anion Gap mmol/L BUN (9-20) mg/dL Creatinine (0.66-1.25) mg/dL Est GFR (CKD-EPI)AfAm (>60 ml/min/1.73 sqM) Est GFR (CKD-EPI)NonAf (>60 ml/min/1.73 sqM) Glucose (74-99) mg/dL Plasma Lactic Acid Rakesh 1.1 (0.7-2.0) mmol/L Calcium (8.4-10.2) mg/dL Total Bilirubin (0.2-1.3) mg/dL AST (17-59) U/L ALT (4-49) U/L Alkaline Phosphatase (38-126) U/L Troponin I <0.012 (0.000-0.034) ng/mL Total Protein (6.3-8.2) g/dL Albumin (3.5-5.0) g/dL Amylase (30-110) U/L Lipase (23-300) U/L Urine Color Yellow Urine Appearance Clear (Clear) Urine pH 7.5 (5.0-8.0) Ur Specific [place] >1.050 H (1.001-1.035) Urine Protein Trace H (Negative) Urine Glucose (UA) Negative (Negative) Urine Ketones 3+ H (Negative) Urine Blood Negative (Negative) Urine Nitrite Negative (Negative) Urine Bilirubin Negative (Negative) Urine Urobilinogen <2.0 (<2.0) mg/dL Ur Leukocyte Esterase Negative (Negative) - EKG Data -: EKG Interpreted by Hi EKG Comments: 12-lead Electrocardiogram Interpretation Note EKG was reviewed and interpreted by myself. 12-lead ECG performed at 0958 is interpreted by me as revealing normal sinus rhythm at a rate of 59 beats per minute. [place] is normal. [place] interval is 132 ms, QRS duration is 97 ms, QTc is 427 ms.. There were no ST or T wave abnormalities to suggest myocardial ischemia or injury. R wave progression across the precordium was satisfactory. By my interpretation this EKG is non-diagnostic for acute ischemia. Disposition Clinical Impression: Gastroenteritis Disposition: HOME SELF-CARE Condition: Fair Instructions (If sedation given, give patient instructions): Gastroenteritis (ED) Prescriptions: Amoxicillin/Potassium Clav [Augmentin 875-125 Tablet] 1 tab PO Q12HR 7 Days #14 tab Famotidine [Pepcid] 20 mg PO DAILY 14 Days #14 tablet Ondansetron [Zofran ODT] 4 mg PO Q8HR PRN 3 Days #9 tab PRN Reason: Nausea Is patient prescribed a controlled substance at d/c from ED?: No Referrals: Elvis Hoffmann Jr, [Primary Care Provider] - 1-2 days
== END 2021-07-02 13:36 | disposition home or self-care (01) ==
LOC: EC 09:48
DX: K52.9 Noninfective gastroenteritis and colitis, unspecified (principal); F41.9 Anxiety disorder, unspecified; F32.A Depression, unspecified; F17.200 Nicotine dependence, unspecified, uncomplicated; F12.90 Cannabis use, unspecified, uncomplicated
CPT/HCPCS: 99285; 96374; 96375 ×3; 96376; 96361; 36415; 93005; 80053; 82150; 83605; 83690; 84484; 85025; 85610; 85730; 81003; 87040; 71046; 74177; J2270; J1200; J2765; C9113; Q9967

== ENCOUNTER 2021-08-20 08:11 | Observation (INO) | payer MEDICARE, OTHER ==
--- NOTE | 2021-08-20 08:35 | ED ---
Chest Pain HPI - General Chief Complaint: Chest Pain Stated Complaint: vomiting Time Seen by Provider: 08/20/21 08:26 Source: patient Mode of arrival: ambulatory Limitations: no limitations - History of Present Illness Initial Comments: 61-year-old male with past medical history of chronic back pain, diverticulitis presents emergency room with chest pain. States that it woke him up this morning from sleep. Describes it as a tightness in the left side of his chest with associated nausea and vomiting. Denies previous history of cardiac disease. No associated fevers, chills or cough. No sick contacts. No ripping or tearing sensation to his back. No abdominal pain. No numbness, tingling or weakness in his extremities. 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 ROS Other: All systems not noted in ROS Statement are negative. EKG Findings - EKG Comments: EKG Findings:: EKG demonstrates sinus bradycardia with a rate of 49. [place] interval 149. QRS 94. QTC of 405. J-point elevation in all leads. Past Medical History Past Medical History: No Reported History Additional Past Medical History / Comment(s): chronic back pain, diverticulitis History of Any Multi-Drug Resistant Organisms: None Reported Past Surgical History: Orthopedic Surgery Additional Past Surgical History / Comment(s): rt knee lt shoulder Past Psychological History: Anxiety, Depression Smoking Status: Current every day smoker Past Alcohol Use History: None Reported Past Drug Use History: Marijuana General Exam Limitations: no limitations General appearance: alert, in no apparent distress Head exam: Present: atraumatic, normocephalic, normal inspection Eye exam: Present: normal appearance, PERRL, EOMI. Absent: scleral icterus, conjunctival injection, periorbital swelling ENT exam: Present: normal exam, mucous membranes moist Neck exam: Present: normal inspection. Absent: tenderness, meningismus, lymphadenopathy Respiratory exam: Present: normal lung sounds bilaterally. Absent: respiratory distress, wheezes, rales, rhonchi, stridor Cardiovascular Exam: Present: normal rhythm, bradycardia, normal heart sounds. Absent: systolic murmur, diastolic murmur, rubs, gallop, clicks GI/Abdominal exam: Present: soft, normal bowel sounds. Absent: distended, tenderness, guarding, rebound, rigid Extremities exam: Present: normal inspection, full ROM, normal capillary refill. Absent: tenderness, pedal edema, joint swelling, calf tenderness Back exam: Present: normal inspection Neurological exam: Present: alert, oriented X3, CN II-XII intact Psychiatric exam: Present: normal affect, normal mood Skin exam: Present: warm, dry, intact, normal color. Absent: rash Course Vital Signs 08/20/21 08/20/21 08:16 08:33 Temperature 97.5 F L Pulse Rate 52 L Pulse Rate [ 52 L Pulse Oximetery ] Respiratory 18 Rate Blood Pressure 146/98 O2 Sat by Pulse 99 Oximetry Chest Pain MDM - MDM Upon arrival patient is placed into room 23. A thorough history and physical exam was performed. 12-lead EKG is obtained. Laboratory studies are conducted. First troponin is negative. Chest x-ray demonstrates no acute process. I did discuss results with Dr. Rendon who agrees to admit the patient. He was given an aspirin, Nitropaste, morphine and is admitted to the floor in stable condition Disposition Clinical Impression: Chest pain Disposition: ADMITTED IP TO THIS HOSP Condition: Stable Is patient prescribed a controlled substance at d/c from ED?: No Time of Disposition: 10:46 Decision to Admit Reason: Admit from EC Decision Date: 08/20/21 Decision Time: 10:46
[2021-08-20 08:46] LABS: Basophils % (A) 0 %; Eosinophils # (A) 0.1 k/uL (0-0.7); Eosinophils % (A) 1 %; HCT 48.6 % (39.0-53.0); HGB 16.4 gm/dL (13.0-17.5); Lymphocytes # (A) 1.2 k/uL (1.0-4.8); Lymphocytes % (A) 14 %; MCH 31.4 pg (25.0-35.0); MCHC 33.8 g/dL (31.0-37.0); MCV 92.9 fL (80.0-100.0); Mean Platelet Volume 7.5; Monocytes # (A) 0.3 k/uL (0-1.0); Monocytes % (A) 3 %; Neutrophils # (A) 7.4 k/uL (1.3-7.7); Neutrophils % (A) 81 %; Platelet Count 216 k/uL (150-450); RBC 5.23 m/uL (4.30-5.90); RDW 13.9 % (11.5-15.5); WBC 9.1 k/uL (3.8-10.6)
[2021-08-20 09:01] LABS: ALT 29 U/L (4-49); AST 31 U/L (17-59); African American GFR (CKD) >90 (>60 ml/min/1.73 sqM); Albumin 4.9 g/dL (3.5-5.0); Alkaline Phosphatase 87 U/L (38-126); Anion Gap 11 mmol/L; Blood Urea Nitrogen 18 mg/dL (9-20); Calcium 9.3 mg/dL (8.4-10.2); Carbon Dioxide 26 mmol/L (22-30); Chloride 105 mmol/L (98-107); Glucose 115 mg/dL (74-99); Lipase 86 U/L (23-300); Non-African American GFR(CKD) 90 (>60 ml/min/1.73 sqM); Potassium 4.1 mmol/L (3.5-5.1); Sodium 142 mmol/L (137-145); Total Bilirubin 0.6 mg/dL (0.2-1.3); Total Protein 7.8 g/dL (6.3-8.2)
[2021-08-20 09:02] LABS: INR 0.9 (<1.2); Partial Thromboplastin Time 24.7 sec (22.0-30.0); Prothrombin Time 10.2 sec (9.0-12.0)
[2021-08-20] MEDS ORDERED: ONDANSETRON 4 MG/2 ML VIAL IVP STA (09:05)
[2021-08-20] MEDS ORDERED: MORPHINE SULFATE 4 MG/ML SYRINGE IVP STA (09:05)
--- NOTE | 2021-08-20 09:18 | XR ---
EXAMINATION TYPE: XR chest 2V DATE OF EXAM: 08/20/2021 COMPARISON: 07/02/2021 INDICATION: Chest pain and abdominal pain TECHNIQUE: Frontal and lateral views of the chest are obtained. FINDINGS: The heart size is normal. The pulmonary vasculature is normal. The lungs are clear. IMPRESSION: 1. No acute pulmonary process.
[2021-08-20] MEDS ORDERED: ONDANSETRON 4 MG/2 ML VIAL IVP PRN ×2 (10:46→15:48)
[2021-08-20] MEDS ORDERED: NALOXONE 0.4 MG/ML 1 ML VIAL IV PRN (10:46)
[2021-08-20] MEDS ORDERED: ASPIRIN 81 MG PO STA (10:48)
[2021-08-20] MEDS ORDERED: NITROGLYCERIN OINT 1 INCH/GM PACKET TOPICAL STA (10:48)
[2021-08-20] MEDS ORDERED: NITROGLYCERIN OINT 1 INCH/GM PACKET TOPICAL ONE (11:14)
[2021-08-20] MEDS ORDERED: ASPIRIN 81 MG ONE (11:14)
--- NOTE | 2021-08-20 14:54 | P.HPIM ---
History of Present Illness H&P Date: 08/20/21 Chief Complaint: Chest pain, acute on chronic back pain, nausea, vomiting This is a 61-year-old obese gentleman with strong family history of CAD, reports brother had GA at age of 45 ,past medical history of chronic back pain-has a pain contract with Dr. Cotton, diverticulitis, bipolar disorder, anxiety, depression, ongoing nicotine dependence- one pack per day, marijuana daily- reports once daily and multiple other medical issues.patient reports after waking up, he started having nausea with vomiting 4, midsternal nonradiating chest pressure and worsened lower back pain accompanied by sweats and chills. Denies headache, focal deficits or lightheadedness, denies shortness of breath. Denies abdominal pain. Afebrile, bradycardic with heart rates 50-59, respiratory rate normal, systolic blood pressures ranging from 122-146, maintaining O2 sats in the 90s on room air. Aspirin, morphine, nitroglycerin and oxygen initiated in the ER. Hematology, coagulation and chemistry panels unremarkable-electrolytes within normal limits, troponin negative 1. EKG currently unavailable. Chest [id number] unable to retrieve secondary to computer downtime. Review of Systems ROS Statement: Those systems with pertinent positive or pertinent negative responses have been documented in the HPI. ROS Other: All systems not noted in ROS Statement are negative. Past Medical History Past Medical History: No Reported History Additional Past Medical History / Comment(s): chronic back pain, diverticulitis History of Any Multi-Drug Resistant Organisms: None Reported Past Surgical History: Orthopedic Surgery Additional Past Surgical History / Comment(s): rt knee lt shoulder Past Psychological History: Anxiety, Depression Smoking Status: Current every day smoker Past Alcohol Use History: None Reported Past Drug Use History: Marijuana Medications and Allergies Home Medications Medication Instructions Recorded Confirmed Type Hydrocodone/Acetaminophen [[place] 1 tab PO QID 09/13/16 08/20/21 History 10-325] buPROPion HCL [Wellbutrin XL] 150 mg PO DAILY 09/13/16 08/20/21 History ARIPiprazole [Abilify] 5 mg PO HS 12/10/19 08/20/21 History Allergies Allergy/AdvReac Type Severity Reaction Status Date / Time No Known Allergies Allergy Verified 08/20/21 09:57 Physical Exam Vitals: Vital Signs Temp Pulse Pulse Resp BP BP Pulse Ox 08/20/21 12:15 97.7 F 59 L 18 122/61 96 08/20/21 08:33 52 L 08/20/21 08:16 97.5 F L 52 L 18 146/98 99 Intake and Output 08/19/21 08/20/21 08/20/21 22:59 06:59 14:59 Other: Weight 95.254 kg PHYSICAL EXAM: VITAL SIGNS: As above GENERAL: Lying in bed, nauseated, with chills, reporting chest pressure at a 5 out of 10, non-reproducible, diaphoretic HEENT: Atraumatic, normocephalic Conjunctivae normal. eyes normal. NECK: No JVD. No thyroid enlargement. No LNs CARDIOVASCULAR: S1, S2 regular. No murmur, rubs or gallops RESPIRATION: unlabored,Breath sounds diminished in the bases. No rhonchi or crackles. No bronchial breathing. ABDOMEN: Soft, nontender . No guarding. no masses palpable. No ascites, No hepatosplenomegaly.Bowel sounds heard. Bilateral Lower back pain, LEGS: No edema. no swelling ,2+ peripheral pulses, no clubbing or cyanosis. No calf tenderness. PSYCHIATRY: Alert and oriented X3, mood and affect normal. NERVOUS SYSTEM: Cranial N 2-12 grossly normal. Moves all 4 limbs. No focal deficits. Strength and sensation grossly intact. Skin: Warm and dry, no rash Results CBC & Chem 7: 08/20/21 08:31 08/20/21 08:31 Labs: Abnormal Lab Results - Last 24 Hours (Table) 08/20/21 Range/Units 08:31 Glucose 115 H (74-99) mg/dL Assessment and Plan Assessment: Acute chest pain with acute on chronic bilateral lower back pain, accompanied by nausea and vomiting.Troponin negative X 1 in a patient with obesity, BMI 30.1. Strong family history of CAD. Hypertension Nicotine dependence, 1 pack per day, uses marijuana daily. Chronic back pain, pain contract with Dr. Cotton. Bipolar disorder ,Anxiety, depression Plan: Continue on current medication regime ,monitoring and symptomatic treatment. Cardiology consulted. Repeat EKG, stat serial troponins ordered. Discussed with cardiology [employer]. Echo pending. Zofran, PPI ordered. Pain management. Computer is down, unable to access recent CP visit on 08/07/2020. The impression and plan of care has been dictated as directed. : I performed a history and examination of this patient, discussed the same with the dictator. I agree with the dictator's note ,documented as a scribe. Any additional findings or plans will be noted.
[2021-08-20] MEDS ORDERED: MORPHINE SULFATE 4 MG/ML SYRINGE IV PRN (15:49)
[2021-08-20] MEDS: HYDROcodone/APAP 10-325MG 1 EACH TAB PO SCH ×2 (16:15→22:10)
[2021-08-20] MEDS: TRIAMCINOLONE ACET 0.1% OINTMENT 15 GM TUBE TOPICAL SCH (20:05)
[2021-08-20] MEDS ORDERED: ARIPiprazole 5 MG TAB PO SCH (21:00)
--- NOTE | 2021-08-21 07:35 | P.CRDCN ---
History of Present Illness Consult date: 08/21/21 Chief complaint: Chest discomfort History of present illness: The patient is a 61-year-old gentleman with no significant past medical history but significant history of smoking presented to the hospital complaining of chest discomfort. The patient has been struggling with severe nausea and vomiting for the last few days. He stated that after that he started experiencing discomfort in the epigastric area and middle of the chest as a pressure on the chest with no radiation to the arms or neck or shoulders or back and no associated symptoms of sweating or shortness of breath or any feeling of heart racing or fluttering or presyncope or syncope. Because of that he decided to come to the emergency department. He underwent a workup including an EKG showing sinus rhythm was sinus bradycardia but no ischemic ST or T-wave abnormalities. Beside that he underwent 3 sets of cardiac enzymes came in to be unremarkable. He also underwent a chest x-ray and that showed no acute abnormalities. Currently he is chest pain free. The physical examination overall appears to be unremarkable. Please note that he underwent a stress test a year ago in July 2020 where he underwent myocardial perfusion imaging stress test came in to be unremarkable and also he underwent an echocardiogram which revealed normal left ventricular systolic function with no significant valvular abnormalities. I informed the patient that the chest discomfort is likely secondary to the nausea and vomiting which she was experiencing excessively lately. But given h is history of smoking I advised the patient to undergo a stress test and I gave the patient the option of proceeding with a stress test either as an inpatient or as an outpatient but he would like to have it done as an outpatient. I'm going to schedule the patient to undergo an exercise treadmill stress test this morning Past Medical History Past Medical History: No Reported History Additional Past Medical History / Comment(s): chronic back pain, diverticulitis History of Any Multi-Drug Resistant Organisms: None Reported Past Surgical History: Orthopedic Surgery Additional Past Surgical History / Comment(s): rt knee lt shoulder Past Psychological History: Anxiety, Depression Smoking Status: Current every day smoker Past Alcohol Use History: None Reported Past Drug Use History: Marijuana Medications and Allergies Home Medications Medication Instructions Recorded Confirmed Type Hydrocodone/Acetaminophen [[place] 1 tab PO QID 09/13/16 08/20/21 History 10-325] buPROPion HCL [Wellbutrin XL] 150 mg PO DAILY 09/13/16 08/20/21 History ARIPiprazole [Abilify] 5 mg PO HS 12/10/19 08/20/21 History Allergies Allergy/AdvReac Type Severity Reaction Status Date / Time No Known Allergies Allergy Verified 08/20/21 09:57 Physical Exam Vitals: Vital Signs Temp Pulse Pulse Resp BP BP Pulse Ox 08/21/21 01:41 98.0 F 67 17 116/64 93 L 08/20/21 19:43 98.0 F 78 18 107/56 94 L 08/20/21 14:58 98.2 F 74 18 94/56 92 L 08/20/21 12:15 97.7 F 59 L 18 122/61 96 08/20/21 08:33 52 L 08/20/21 08:16 97.5 F L 52 L 18 146/98 99 Intake and Output 08/20/21 08/21/21 08/21/21 22:59 06:59 14:59 Intake Total 118 Balance 118 Intake: Oral 118 Other: # Voids 1 1 - Constitutional General appearance: no acute distress - Respiratory Respiratory: bilateral: CTA - Cardiovascular Rhythm: regular Heart sounds: normal: S1, S2 Results 08/20/21 08:31 08/20/21 08:31 Cardiac Enzymes 08/20/21 08/20/21 08/20/21 Range/Units 08:31 08:31 16:09 AST 31 (17-59) U/L Troponin I <0.012 <0.012 (0.000-0.034) ng/mL 08/20/21 Range/Units 21:13 AST (17-59) U/L Troponin I <0.012 (0.000-0.034) ng/mL Coagulation 08/20/21 Range/Units 08:31 PT 10.2 (9.0-12.0) sec APTT 24.7 (22.0-30.0) sec CBC 08/20/21 Range/Units 08:31 WBC 9.1 (3.8-10.6) k/uL RBC 5.23 (4.30-5.90) m/uL Hgb 16.4 (13.0-17.5) gm/dL Hct 48.6 (39.0-53.0) % Plt Count 216 (150-450) k/uL Comprehensive Metabolic Panel 05/26/22 Range/Units 08:31 Sodium 142 (137-145) mmol/L Potassium 4.1 (3.5-5.1) mmol/L Chloride 105 (98-107) mmol/L Carbon Dioxide 26 (22-30) mmol/L BUN 18 (9-20) mg/dL Creatinine 0.92 (0.66-1.25) mg/dL Glucose 115 H (74-99) mg/dL Calcium 9.3 (8.4-10.2) mg/dL AST 31 (17-59) U/L ALT 29 (4-49) U/L Alkaline Phosphatase 87 (38-126) U/L Total Protein 7.8 (6.3-8.2) g/dL Albumin 4.9 (3.5-5.0) g/dL Current Medications Generic Name Dose Route Start Last Admin Trade Name Freq PRN Reason Stop Dose Admin Hydrocodone Bitart/Acetaminophen 1 each 08/20/21 18:00 08/20/21 22:10 Hydrocodone/Apap 10-325mg 1 Each Tab PO 1 each QID RAMILA Administration Aripiprazole 5 mg 08/20/21 21:00 08/20/21 20:04 Aripiprazole 5 Mg Tab PO 5 mg HS RAMILA Administration Bupropion HCl 150 mg 08/21/21 09:00 Bupropion Xl 150 Mg Tab.Er.24h PO DAILY [facility] Morphine Sulfate 4 mg 08/20/21 15:49 08/21/21 04:59 Morphine Sulfate 4 Mg/Ml Syringe IV 4 mg Q6HR PRN Administration CHEST PAIN Naloxone HCl 0.2 mg 08/20/21 10:46 Naloxone 0.4 Mg/Ml 1 Ml Vial IV Q2M PRN Opioid Reversal Ondansetron HCl 4 mg 08/20/21 15:48 Ondansetron 4 Mg/2 Ml Vial IVP Q6HR PRN Nausea Pantoprazole Sodium 40 mg 08/21/21 09:00 Pantoprazole 40 Mg/10 Ml Vial IVP Q24HR [facility] Triamcinolone Acetonide 1 applic 08/20/21 22:00 08/20/21 20:05 Triamcinolone Acet 0.1% Ointment 15 Gm Tube TOPICAL 1 applic TID RAMILA Administration Protocol Intake and Output 08/20/21 08/21/21 08/21/21 22:59 06:59 14:59 Intake Total 118 Balance 118 Intake: Oral 118 Other: # Voids 1 1 08/20/21 08:31 08/20/21 08:31 Assessment and Plan Assessment: Assessment #1 atypical chest discomfort #2 significant history of smoking Plan Proceed with a stress test #2 follow-up with the patient
[2021-08-21 08:57] LABS: Basophils # (A) 0.01 X 10*3/uL (0.00-0.10); Basophils % (A) 0.2 %; Eosinophils # (A) 0.01 X 10*3/uL (0.04-0.35); Eosinophils % (A) 0.2 %; HCT 46.1 % (39.6-50.0); HGB 15.6 g/dL (13.0-17.0); Immature Grans, Automated 0.4 %; Lymphocytes # (A) 1.63 X 10*3/uL (0.90-5.00); Lymphocytes % (A) 28.6 %; MCH 30.2 pg (27.0-32.0); MCHC 33.8 g/dL (32.0-37.0); MCV 89.3 fL (80.0-97.0); Mean Platelet Volume 10.2 fL (9.5-12.2); Monocytes # (A) 0.42 X 10*3/uL (0.20-1.00); Monocytes % (A) 7.4 %; NRBC Per 100 WBC 0 /100 WBCS (0.0-0.0); Neutrophils # (A) 3.61 X 10*3/uL (1.80-7.70); Neutrophils % (A) 63.2 %; Platelet Count 218 X 10*3/uL (140-440); RBC 5.16 X 10*6/uL (4.40-5.60); RDW 13.2 % (11.5-14.5)
[2021-08-21] MEDS ORDERED: buPROPion XL 150 MG TAB.ER.24H PO SCH (09:00)
[2021-08-21] MEDS ORDERED: PANTOPRAZOLE 40 MG/10 ML VIAL IVP SCH (09:00)
[2021-08-21 09:02] VITALS: BP 122/74; PULSE 73; RESP 18; TEMP 97.8
[2021-08-21] MEDS: HYDROcodone/APAP 10-325MG 1 EACH TAB PO SCH (09:06)
--- NOTE | 2021-08-21 09:06 | CA ---
Exercise Stress Test Report Name: Brian Dickens Exam Date: 08/21/2021 08:01 Exam Location: [place] Stress Ht (in): 70 Wt (lb): 210 BSA: 2.13 Ordering Phys: Davian Snow MD Referring Phys: GLENNA,, Technologist: Destiney Brito Age: 61 Gender: M : 1960 Procedure CPT: Indications: CP ICD-10 Codes: Patient History: CHEST PAIN Medications: WELLBUTRIN,,,,,, ABILIFY,,,,,, NORCO,,,,, Meds past 24 hrs: Pretest Chest Pain: STRESS TEST Ramon Protocol Exercise Duration (min:sec): 09:[address] Depressions (mm): Angina Score: Barrios Score: Resting HR (bpm): 66 Peak HR (bpm): 137 Resting BP (mmHg): 117 / 63 Peak BP (mmHg): 176 / 87 MPHR: 159 Target HR: 135 % MPHR: 86 METS: 10.9 Total Dose: Peak Dose: Atropine: Double Product: 67147 BP Response: Stress Termination: TARGET HR REACHED/MAX EXERTION Stress Symptoms: NO SYMPTOMS Stress Summary: ECG ANALYSIS Resting ECG: Stress ECG: CONCLUSIONS Excellent exercise tolerance Normal EKG response to exercise Essentially a normal stress test Dr. Davian Snow MD (Electronically Signed) Final Date: 21 Aug 2021 09:05
[2021-08-21] MEDS: TRIAMCINOLONE ACET 0.1% OINTMENT 15 GM TUBE TOPICAL SCH (09:07)
[2021-08-21 09:42] LABS: African American GFR (CKD) 106.5 (60.0-200.0); Anion Gap 13.3 mmol/L (10.00-18.00); Blood Urea Nitrogen 14.4 mg/dL (9.0-27.0); Calcium 9.3 mg/dL (8.7-10.3); Carbon Dioxide 22.7 mmol/L (20.0-27.5); Non-African American GFR(CKD) 91.9 (60.0-200.0); Potassium 3.9 mmol/L (3.5-5.5)
--- NOTE | 2021-08-21 13:14 | CA ---
Transthoracic Echo Report Name: Brian Dickens Age: 61 Gender: M : 1960 Exam Date: 08/21/2021 07:15 Exam Location: [place] Echo Ht (in): 70 Wt (lb): 210 Ordering Physician: Kristie Brenner Attending/Referring Phys: Glass Tube Bender Marisela Baltazar RDCS Procedure CPT: Indications: LV function, chest pain Cardiac Hx: Technical Quality: Good Contrast 1: Total Dose (mL): Contrast 2: Total Dose (mL): MEASUREMENTS (Male / Female) Normal Values 2D ECHO LV Diastolic Diameter PLAX 4.9 cm 4.2 - 5.9 / 3.9 - 5.3 cm LV Systolic Diameter PLAX 3.5 cm IVS Diastolic Thickness 1.0 cm 0.6 - 1.0 / 0.6 - 0.9 cm LVPW Diastolic Thickness 1.1 cm 0.6 - 1.0 / 0.6 - 0.9 cm LV Relative Wall Thickness 0.4 RV Internal Dim ED PLAX 3.4 cm LA Systolic Diameter LX 3.2 cm 3.0 - 4.0 / 2.7 - 3.8 cm LA Volume 52.3 cm??? 18 - 58 / 22 - 52 cm??? M-MODE Aortic Root Diameter MM 2.9 cm MV E Point Septal Separation 0.5 cm AV Cusp Separation MM 2.0 cm DOPPLER AV Peak Velocity 139.6 cm/s AV Peak Gradient 7.8 mmHg MV Area PHT 3.3 cm??? Mitral E Point Velocity 96.3 cm/s Mitral A Point Velocity 68.1 cm/s Mitral E to A Ratio 1.4 MV Deceleration Time 230.9 ms MV E' Velocity 10.7 cm/s Mitral E to MV E' Ratio 9.0 FINDINGS Left Ventricle Left ventricular ejection fraction is estimated at 60-65 %. Left ventricular cavity size normal. Borderline left ventricular hypertrophy. Right Ventricle Mild right ventricular dilatation. Unable to estimate the right ventricular systolic pressure. Right Atrium Normal right atrial size. Left Atrium Normal left atrial size. No evidence for an atrial septal defect. Mitral Valve Structurally normal mitral valve. No mitral stenosis, regurgitation or prolapse. Aortic Valve Trileaflet aortic valve. No aortic valve stenosis or regurgitation. Tricuspid Valve Structurally normal tricuspid valve. Pulmonic Valve Trace pulmonic regurgitation. Pericardium Normal pericardium. Aorta Normal size aortic root and proximal ascending aorta. CONCLUSIONS Normal left ventricular dimension and systolic function Please see above for further details Previewed by: Dr. Davian Snow MD (Electronically Signed) Final Date: 21 Aug 2021 13:14
== END 2021-08-21 11:55 | disposition home or self-care (01) ==
LOC: EC 08:11 → 6NMEDSUR 10:46 → INTOOBSV 11:53 → OBSVTOIN 11:53 → 6NMEDSUR 15:24
PROVIDERS: ADMIT Family Medicine; ATTEND Family Medicine
DX: R07.89 Other chest pain (principal); R11.2 Nausea with vomiting, unspecified; R61 Generalized hyperhidrosis; R68.83 Chills (without fever); R10.13 Epigastric pain; G89.29 Other chronic pain; M54.50 Low back pain, unspecified; R00.1 Bradycardia, unspecified; I10 Essential (primary) hypertension; F31.9 Bipolar disorder, unspecified; F41.9 Anxiety disorder, unspecified; F17.210 Nicotine dependence, cigarettes, uncomplicated; E66.9 Obesity, unspecified; Z68.30 Body mass index [BMI] 30.0-30.9, adult; Z79.899 Other long term (current) drug therapy; Z71.9 Counseling, unspecified; Z82.49 Family history of ischemic heart disease and other diseases of the circulatory system
CPT/HCPCS: 96376; 96375 ×2; 96374; 99285; 36415; 93017; 93306; 83880; 80053; 80048; 83690; 83735; 84484; 85025 ×2; 85610; 85730; 71046; G0378 ×2; J2270 ×2; J2405; C9113; 93005

== ENCOUNTER 2021-08-22 10:02 | Emergency (ER) | payer MEDICARE, OTHER ==
[2021-08-22 10:13] VITALS: RESP 18; TEMP 97.6
[2021-08-22] MEDS ORDERED: ONDANSETRON 4 MG/2 ML VIAL IVP STA ×2 (12:09→14:25)
[2021-08-22] MEDS ORDERED: FAMOTIDINE 20 MG/2 ML VIAL IV STA (12:09)
[2021-08-22] MEDS ORDERED: LORazepam 2 MG/ML INJ IV STA (12:09)
[2021-08-22] MEDS ORDERED: SODIUM CHLORIDE 0.9% 1,000 ML IV STA (12:09)
[2021-08-22 12:35] LABS: Basophils % (A) 0 %; Eosinophils % (A) 1 %; HCT 49.6 % (39.0-53.0); HGB 16.4 gm/dL (13.0-17.5); Lymphocytes % (A) 14 %; MCH 30.4 pg (25.0-35.0); MCHC 33.1 g/dL (31.0-37.0); MCV 91.9 fL (80.0-100.0); Mean Platelet Volume 7.6; Monocytes # (A) 0.2 k/uL (0-1.0); Monocytes % (A) 2 %; Neutrophils # (A) 5.9 k/uL (1.3-7.7); Neutrophils % (A) 82 %; Platelet Count 228 k/uL (150-450); RDW 13.6 % (11.5-15.5); WBC 7.2 k/uL (3.8-10.6)
[2021-08-22 12:46] LABS: ALT 27 U/L (4-49); AST 26 U/L (17-59); African American GFR (CKD) >90 (>60 ml/min/1.73 sqM); Albumin 4.9 g/dL (3.5-5.0); Alkaline Phosphatase 83 U/L (38-126); Anion Gap 11 mmol/L; Blood Urea Nitrogen 15 mg/dL (9-20); Calcium 9.3 mg/dL (8.4-10.2); Carbon Dioxide 25 mmol/L (22-30); Chloride 103 mmol/L (98-107); Glucose 116 mg/dL (74-99); Lipase 58 U/L (23-300); Non-African American GFR(CKD) >90 (>60 ml/min/1.73 sqM); Potassium 4.1 mmol/L (3.5-5.1); Sodium 139 mmol/L (137-145); Total Bilirubin 0.7 mg/dL (0.2-1.3); Total Protein 7.8 g/dL (6.3-8.2)
--- NOTE | 2021-08-22 12:55 | ED ---
Nausea/Vomiting/Diarrhea HPI - General Chief complaint: Nausea/Vomiting/Diarrhea Stated complaint: N/V, Chills Time Seen by Provider: 08/22/21 11:11 Source: patient Mode of arrival: wheelchair Limitations: no limitations - History of Present Illness Initial comments: 61-year-old male patient presents to the emergency department today for evaluation of vomiting. States he started this morning around 8 AM with vomiting and dry heaves. States he has been having intermittent episodes similar to this for the last couple of years. He was recently admitted to the hospital for vomiting of rule out ACS. Did have a stress test which showed no ischemic changes he was discharged home yesterday. Patient states he does have medication for vomiting at home but did not take anything today. States his abdomen feels tender. Reports increased low back pain. Denies radiation down the legs. Denies numbness or tingling to the lower extremities. Denies any saddle anesthesia or bowel loss of bowel or bladder control. Denies any chest pain today. Denies hematemesis, hematochezia, or melena. Does smoke marijuana daily. Denies any other drug or alcohol use. Patient denies any recent rash, fever, chills, cough, shortness of breath, dizziness, weakness, hematuria, dysuria, urinary urgency, urinary frequency, headache, visual changes, or any other complaints. - Related Data Home Medications Medication Instructions Recorded Confirmed Hydrocodone/Acetaminophen [[place] 1 tab PO QID 09/13/16 08/20/21 10-325] buPROPion HCL [Wellbutrin XL] 150 mg PO DAILY 09/13/16 08/20/21 ARIPiprazole [Abilify] 5 mg PO HS 12/10/19 08/20/21 Allergies Allergy/AdvReac Type Severity Reaction Status Date / Time No Known Allergies Allergy Verified 08/22/21 10:11 Review of Systems ROS Statement: Those systems with pertinent positive or pertinent negative responses have been documented in the HPI. ROS Other: All systems not noted in ROS Statement are negative. Past Medical History Past Medical History: No Reported History Additional Past Medical History / Comment(s): chronic back pain, diverticulitis History of Any Multi-Drug Resistant Organisms: None Reported Past Surgical History: Orthopedic Surgery Additional Past Surgical History / Comment(s): rt knee lt shoulder Past Psychological History: Anxiety, Depression Smoking Status: Current every day smoker Past Alcohol Use History: None Reported Past Drug Use History: Marijuana General Exam Limitations: no limitations General appearance: alert, in no apparent distress, other (Social well- developed, well-nourished adult male in no acute distress.) Eye exam: Present: normal appearance, PERRL, EOMI. Absent: scleral icterus, con junctival injection, periorbital swelling ENT exam: Present: normal exam, normal oropharynx, mucous membranes moist Respiratory exam: Present: normal lung sounds bilaterally. Absent: respiratory distress, wheezes, rales, rhonchi, stridor Cardiovascular Exam: Present: normal rhythm, bradycardia, normal heart sounds. Absent: systolic murmur, diastolic murmur, rubs, gallop, clicks GI/Abdominal exam: Present: soft, normal bowel sounds. Absent: distended, tenderness, guarding, rebound, rigid Neurological exam: Present: alert, oriented X3, CN II-XII intact Psychiatric exam: Present: normal affect, normal mood Skin exam: Present: warm, dry, intact, normal color. Absent: rash Course Vital Signs 08/22/21 08/22/21 10:11 13:00 Temperature 97.6 F Pulse Rate 49 L 52 L Respiratory 18 18 Rate Blood Pressure 173/93 149/86 O2 Sat by Pulse 98 97 Oximetry Medical Decision Making - Medical Decision Making 61-year-old male patient presented to the emergency department today for evaluation of nausea and vomiting that started this morning. Physical examination did reveal soft nontender abdomen. Labs reviewed and are unremarkable. He was given IV fluids and IV nausea medication. Did have some improvement but still feeling nauseated so did give additional dosage. He'll be discharged today to follow-up with his primary care physician and given recommendation for gastroenterology. Return parameters were discussed in detail. He verbalizes understanding and agrees with plan. My attending is Dr. Bergeron. - Lab Data Result diagrams: 08/22/21 12:29 08/22/21 12:29 Lab Results 08/22/21 08/22/21 08/22/21 Range/Units 12:29 12:29 12:29 WBC 7.2 (3.8-10.6) k/uL RBC 5.40 (4.30-5.90) m/uL Hgb 16.4 (13.0-17.5) gm/dL Hct 49.6 (39.0-53.0) % MCV 91.9 (80.0-100.0) fL MCH 30.4 (25.0-35.0) pg MCHC 33.1 (31.0-37.0) g/dL RDW 13.6 (11.5-15.5) % Plt Count 228 (150-450) k/uL MPV 7.6 Neutrophils % 82 % Lymphocytes % 14 % Monocytes % 2 % Eosinophils % 1 % Basophils % 0 % Neutrophils # 5.9 (1.3-7.7) k/uL Lymphocytes # 1.0 (1.0-4.8) k/uL Monocytes # 0.2 (0-1.0) k/uL Eosinophils # 0.0 (0-0.7) k/uL Basophils # 0.0 (0-0.2) k/uL Sodium 139 (137-145) mmol/L Potassium 4.1 (3.5-5.1) mmol/L Chloride 103 (98-107) mmol/L Carbon Dioxide 25 (22-30) mmol/L Anion Gap 11 mmol/L BUN 15 (9-20) mg/dL Creatinine 0.89 (0.66-1.25) mg/dL Est GFR (CKD-EPI)AfAm >90 (>60 ml/min/1.73 sqM) Est GFR (CKD-EPI)NonAf >90 (>60 ml/min/1.73 sqM) Glucose 116 H (74-99) mg/dL Calcium 9.3 (8.4-10.2) mg/dL Total Bilirubin 0.7 (0.2-1.3) mg/dL AST 26 (17-59) U/L ALT 27 (4-49) U/L Alkaline Phosphatase 83 (38-126) U/L Troponin I (0.000-0.034) ng/mL Total Protein 7.8 (6.3-8.2) g/dL Albumin 4.9 (3.5-5.0) g/dL Lipase 58 (23-300) U/L Urine Color Yellow Urine Appearance Clear (Clear) Urine pH 6.0 (5.0-8.0) Ur Specific [place] 1.025 (1.001-1.035) Urine Protein Trace H (Negative) Urine Glucose (UA) Negative (Negative) Urine Ketones 1+ H (Negative) Urine Blood Negative (Negative) Urine Nitrite Negative (Negative) Urine Bilirubin Negative (Negative) Urine Urobilinogen <2.0 (<2.0) mg/dL Ur Leukocyte Esterase Negative (Negative) 08/22/21 Range/Units 12:29 WBC (3.8-10.6) k/uL RBC (4.30-5.90) m/uL Hgb (13.0-17.5) gm/dL Hct (39.0-53.0) % MCV (80.0-100.0) fL MCH (25.0-35.0) pg MCHC (31.0-37.0) g/dL RDW (11.5-15.5) % Plt Count (150-450) k/uL MPV Neutrophils % % Lymphocytes % % Monocytes % % Eosinophils % % Basophils % % Neutrophils # (1.3-7.7) k/uL Lymphocytes # (1.0-4.8) k/uL Monocytes # (0-1.0) k/uL Eosinophils # (0-0.7) k/uL Basophils # (0-0.2) k/uL Sodium (137-145) mmol/L Potassium (3.5-5.1) mmol/L Chloride (98-107) mmol/L Carbon Dioxide (22-30) mmol/L Anion Gap mmol/L BUN (9-20) mg/dL Creatinine (0.66-1.25) mg/dL Est GFR (CKD-EPI)AfAm (>60 ml/min/1.73 sqM) Est GFR (CKD-EPI)NonAf (>60 ml/min/1.73 sqM) Glucose (74-99) mg/dL Calcium (8.4-10.2) mg/dL Total Bilirubin (0.2-1.3) mg/dL AST (17-59) U/L ALT (4-49) U/L Alkaline Phosphatase (38-126) U/L Troponin I <0.012 (0.000-0.034) ng/mL Total Protein (6.3-8.2) g/dL Albumin (3.5-5.0) g/dL Lipase (23-300) U/L Urine Color Urine Appearance (Clear) Urine pH (5.0-8.0) Ur Specific [place] (1.001-1.035) Urine Protein (Negative) Urine Glucose (UA) (Negative) Urine Ketones (Negative) Urine Blood (Negative) Urine Nitrite (Negative) Urine Bilirubin (Negative) Urine Urobilinogen (<2.0) mg/dL Ur Leukocyte Esterase (Negative) - EKG Data -: EKG Interpreted by Me EKG Comments: EKG obtained at 1140 shows sinus bradycardia with a ventricular rate of 46, AR interval 140, QRS duration 95, QT 427, QTC 386. No evidence of ST elevation or depression. Disposition Clinical Impression: Nausea and vomiting Disposition: HOME SELF-CARE Condition: Good Instructions (If sedation given, give patient instructions): Acute Nausea and Vomiting (ED) Additional Instructions: Medication as directed. Start with clear liquid diet and advance as tolerated. Follow up with GI specialist as soon as possible. Follow up with her primary care physician for recheck in 1-2 days. Return for any new, worsening, or concerning symptoms. Is patient prescribed a controlled substance at d/c from ED?: No Referrals: Elvis Hoffmann Jr, DO [Primary Care Provider] - 1-2 days Magnolia Kline MD [STAFF PHYSICIAN] - 1-2 days Time of Disposition: 14:25
[2021-08-22 13:54] VITALS: BP 149/86; PULSE 52
[2021-08-22 13:56] LABS: Appearance,Urine Clear (Clear); Bilirubin,Urine Negative (Negative); Blood,Urine Negative (Negative); Color,Urine Yellow; Glucose,Urine (UA) Negative (Negative); Ketones,Urine 1+ (Negative); Leukocyte Esterase,Urine Negative (Negative); Nitrite,Urine Negative (Negative); Protein,Urine Trace (Negative); Specific Gravity,Urine 1.025 (1.001-1.035); Urobilinogen,Urine <2.0 mg/dL (<2.0)
[2021-08-22] MEDS ORDERED: KETOROLAC 15 MG/ML 1 ML VIAL IVP STA (14:25)
== END 2021-08-22 14:43 | disposition home or self-care (01) ==
LOC: EC 10:02
DX: R11.2 Nausea with vomiting, unspecified (principal); F17.200 Nicotine dependence, unspecified, uncomplicated
CPT/HCPCS: 36415; 93005; 80053; 83690; 84484; 85025; 81003; 99284; 96374; 96375; 96376; 96361; J2060; J2405; J1885

== ENCOUNTER → 2021-09-25 | Outpatient (CLI) | payer MEDICARE, OTHER ==
--- NOTE | 2021-09-25 10:30 | CTL ---
EXAMINATION TYPE: CT Low Dose Lung DATE OF EXAM ORDERED: 09/25/2021 HISTORY: 61-year-old male Z87.891, personal history of nicotine dependence, current smoker. Lung [facility] er screening CT DLP: 123.[address] CTDI: 3.0 mGy Automated exposure control for dose reduction was used. SCREENING VISIT: Baseline COMPARISON: None TECHNIQUE: Low dose computed tomography scan was performed through the chest with coronal and sagitta l reconstructions. CT DIAGNOSTIC QUALITY: Satisfactory FINDINGS: Heart normal size without pericardial effusion. Mild ectasia ascending aorta 3.7 cm. Minimal atherosclerotic arch calcifications. Variant direct take off of the left vertebral artery directly from the aortic arch. Mild bilateral gynecomastia. No thoracic lymphadenopathy by CT size criteria. Mild diffuse bronchial wall thickening. Minimal emphysematous change. Somewhat spiculated 7 mm nodular density right midlung, axial image 122 and coronal MIP image 32. Tiny benign calcified granuloma left midlung, axial image 194. No consolidation or pleural effusion. Some strandy scarring or atelectasis of the lower lungs. Visualized upper abdomen shows no gross abnormality. Bones: Mild degenerative disc disease throughout the thoracic spine. Mild anterior endplate spondylos is lower thoracic spine. IMPRESSION: 1. LungRADS Category 4X (very suspicious, >15% chance of malignancy); a 7 mm right mid lung nodule bu t with spiculation raising suspicion beyond LungRADS 3. Follow-up CT chest in 2-3 months to reassess . If growth at that time, PET/CT or surgical evaluation can be considered. 2. COPD with mild emphysema. CT LUNG RAD AND CT CHEST RECOMMENDATION: Lung-Rad 4B or 4X Very Suspicious: Follow-up Chest CT with o r without contrast or PET/CT and/or tissue sampling. PET/CT may be used when there is a > 8 mm solid component.
== END | disposition home or self-care (01) ==
LOC: RADCTMAIN 08:30
PROVIDERS: ATTEND Family Medicine
DX: Z12.2 Encounter for screening for malignant neoplasm of respiratory organs (principal); Z87.891 Personal history of nicotine dependence; J43.9 Emphysema, unspecified
CPT/HCPCS: 71271

== ENCOUNTER 2021-10-21 11:35 | Emergency (ER) | payer MEDICARE, OTHER ==
[2021-10-21] MEDS ORDERED: METOCLOPRAMIDE 5 MG/ML 2 ML VIAL IVP STA (12:39)
[2021-10-21] MEDS ORDERED: SODIUM CHLORIDE 0.9% 1,000 ML IV STA ×2 (12:39)
[2021-10-21] MEDS ORDERED: KETOROLAC 15 MG/ML 1 ML VIAL IVP STA (12:41)
[2021-10-21 13:31] LABS: Basophils % (A) 1 %; Eosinophils % (A) 0 %; HCT 48.6 % (39.0-53.0); Lymphocytes # (A) 1.3 k/uL (1.0-4.8); Lymphocytes % (A) 18 %; MCH 30.2 pg (25.0-35.0); MCHC 33.1 g/dL (31.0-37.0); MCV 91.5 fL (80.0-100.0); Mean Platelet Volume 7.6; Monocytes # (A) 0.3 k/uL (0-1.0); Monocytes % (A) 4 %; Neutrophils # (A) 5.3 k/uL (1.3-7.7); Neutrophils % (A) 76 %; Platelet Count 227 k/uL (150-450); RBC 5.31 m/uL (4.30-5.90); RDW 12.5 % (11.5-15.5); WBC 6.9 k/uL (3.8-10.6)
[2021-10-21 13:41] LABS: ALT 38 U/L (4-49); AST 38 U/L (17-59); African American GFR (CKD) >90 (>60 ml/min/1.73 sqM); Alkaline Phosphatase 76 U/L (38-126); Anion Gap 8 mmol/L; Blood Urea Nitrogen 18 mg/dL (9-20); Calcium 9.8 mg/dL (8.4-10.2); Carbon Dioxide 29 mmol/L (22-30); Chloride 103 mmol/L (98-107); Glucose 120 mg/dL (74-99); Lipase 349 U/L (23-300); Non-African American GFR(CKD) >90 (>60 ml/min/1.73 sqM); Potassium 4.3 mmol/L (3.5-5.1); Sodium 140 mmol/L (137-145); Total Bilirubin 0.6 mg/dL (0.2-1.3)
[2021-10-21 13:49] LABS: Appearance,Urine Clear (Clear); Bilirubin,Urine Negative (Negative); Blood,Urine Negative (Negative); Color,Urine Yellow; Glucose,Urine (UA) Negative (Negative); Ketones,Urine Trace (Negative); Leukocyte Esterase,Urine Negative (Negative); Nitrite,Urine Negative (Negative); Protein,Urine Trace (Negative); Specific Gravity,Urine 1.028 (1.001-1.035)
[2021-10-21] MEDS ORDERED: MORPHINE SULFATE 4 MG/ML SYRINGE IVP STA (14:05)
--- NOTE | 2021-10-21 14:06 | XR ---
EXAMINATION TYPE: XR abdomen acute w cxr DATE OF EXAM: 10/21/2021 COMPARISON: None INDICATION: Abdomen pain nausea vomiting TECHNIQUE: Acute abdominal series is performed with a frontal chest, upright and supine views of the abdomen. FINDINGS: No free air is under the diaphragm. Heart and mediastinum are normal. Pulmonary vasculature is normal . The lungs are clear Small amount of colonic bowel gas is present. Some nonspecific small bowel gas within the left mid ab domen. No suspicious air-fluid levels or differential air-fluid levels are evident. Psoas margins are normal. Organomegaly is not present. IMPRESSION: 1. Nonspecific abdomen
--- NOTE | 2021-10-21 14:35 | ED ---
Nausea/Vomiting/Diarrhea HPI - General Chief complaint: Nausea/Vomiting/Diarrhea Stated complaint: NVD Source: patient Mode of arrival: wheelchair Limitations: no limitations - History of Present Illness Initial comments: This 61-year-old male presents with a complaint of some nausea and vomiting. This is been present for the last 2 days. He has had multiple episodes. He sta juan that he actually felt somewhat better yesterday but then it was severe again this morning. He has some abdominal pain worse in the midepigastric pain which seems worse with vomiting. He also has some pain in his lower back but also has chronic pain issues. He does have a history of marijuana abuse. He states that he only utilizes marijuana a couple times a week. He states that he normally gets the same symptoms approximately once a month for the past year. He has followed up with GI in the past and has had an EGD a couple of years ago. He denies any alcohol use. He does not take any PPI medication. He does not see a rental agent regularly. He denies any history of pancreatitis. No other complaints or modifying factors. - Related Data Home Medications Medication Instructions Recorded Confirmed Hydrocodone/Acetaminophen [[place] 1 tab PO QID 09/13/16 10/21/21 10-325] buPROPion HCL [Wellbutrin XL] 150 mg PO DAILY 09/13/16 10/21/21 ARIPiprazole [Abilify] 5 mg PO HS 12/10/19 10/21/21 Halobetasol Propionate [Ultravate 1 applic TOPICAL BID PRN 10/21/21 10/21/21 0.05%] Umeclidinium Brm/Vilanterol Tr 1 puff INHALATION RT-DAILY 10/21/21 10/21/21 [Anoro Ellipta 62.5-25 Mcg INH] Previous Rx's Medication Instructions Recorded Dicyclomine [Bentyl] 20 mg PO QID PRN #20 tablet 10/21/21 Omeprazole [PriLOSEC] 40 mg PO DAILY #30 cap 10/21/21 Ondansetron Odt [Zofran Odt] 8 mg PO Q8HR PRN #15 tab 10/21/21 Allergies Allergy/AdvReac Type Severity Reaction Status Date / Time No Known Allergies Allergy Verified 10/21/21 14:04 Review of Systems ROS Statement: Those systems with pertinent positive or pertinent negative responses have been documented in the HPI. ROS Other: All systems not noted in ROS Statement are negative. Past Medical History Past Medical History: No Reported History Additional Past Medical History / Comment(s): chronic back pain, diverticulitis History of Any Multi-Drug Resistant Organisms: None Reported Past Surgical History: Orthopedic Surgery Additional Past Surgical History / Comment(s): rt knee lt shoulder Past Psychological History: Anxiety, Depression Smoking Status: Current every day smoker Past Alcohol Use History: None Reported Past Drug Use History: Marijuana General Exam - General Exam Comments Initial Comments: GENERAL: The patient is well nourished and well hydrated. VITAL SIGNS: Heart rate, blood pressure, respiratory rate reviewed as recorded in nurse's notes. EYES: Pupils are round and reactive. Extraocular movements are intact. No conjunctival / lid redness or swelling. ENT: No external evidence of injury, swelling, or ecchymosis. Airway is patent. Throat is clear. NECK: Nontender. No swelling or evidence of injury. No subcutaneous emphysema. Trachea is midline. No thyroid mass. HEART: Regular rate and rhythm. Good peripheral pulses. LUNGS/CHEST: Breath sounds clear and equal bilaterally. No rales, rhonchi, or wheezes. No ecchymosis, subcutaneous emphysema, or tenderness. ABDOMEN: Abdomen soft with mild tenderness to the midepigastric region. No palpable masses or organomegaly. No peritoneal signs. No abdominal wall swelling or ecchymosis. EXTREMITIES: No extremity tenderness. Normal muscle tone and function. Mild tenderness noted to the lower lumbar region bilaterally. NEUROLOGIC: Sensation is grossly intact. Cranial nerve exam reveals face is symmetrical, tongue is midline, speech is clear. SKIN: No abrasions or ecchymosis is noted. No induration or masses noted. PSYCHIATRIC: Alert and oriented. Appropriate behavior and judgment. Limitations: no limitations Course Vital Signs 10/21/21 10/21/21 10/21/21 11:40 13:28 14:00 Temperature 98.0 F Pulse Rate 53 L 20 L 60 Respiratory 18 20 22 Rate Blood Pressure 154/83 120/83 120/69 O2 Sat by Pulse 98 96 98 Oximetry Medical Decision Making - Medical Decision Making The patient was seen and examined. All diagnostics are reviewed. He is thoroughly hydrated. He also receives Reglan, Toradol, and morphine intravenously. He has significant alleviation of symptomatology. The laboratories all essentially within normal limits except for slight elevation of the lipase. The patient had an acute abdominal series which is essentially within normal limits. Overall, it is felt as though this could be related to his cyclic vomiting syndrome or marijuana hyperemesis syndrome. He may have a very mild pancreatitis as well but his lipase is fairly low. It is felt as tho ugh he stable for discharge. It is also felt as though he benefit from eating on a PPI medication. Follow up with gastroenterology recommended. Diet therapy is discussed. Return parameters discussed. - Lab Data Result diagrams: 10/21/21 13:01 10/21/21 13:01 Lab Results 10/21/21 10/21/21 10/21/21 Range/Units 11:45 13:01 13:01 WBC 6.9 (3.8-10.6) k/uL RBC 5.31 (4.30-5.90) m/uL Hgb 16.0 (13.0-17.5) gm/dL Hct 48.6 (39.0-53.0) % MCV 91.5 (80.0-100.0) fL MCH 30.2 (25.0-35.0) pg MCHC 33.1 (31.0-37.0) g/dL RDW 12.5 (11.5-15.5) % Plt Count 227 (150-450) k/uL MPV 7.6 Neutrophils % 76 % Lymphocytes % 18 % Monocytes % 4 % Eosinophils % 0 % Basophils % 1 % Neutrophils # 5.3 (1.3-7.7) k/uL Lymphocytes # 1.3 (1.0-4.8) k/uL Monocytes # 0.3 (0-1.0) k/uL Eosinophils # 0.0 (0-0.7) k/uL Basophils # 0.0 (0-0.2) k/uL Sodium 140 (137-145) mmol/L Potassium 4.3 (3.5-5.1) mmol/L Chloride 103 (98-107) mmol/L Carbon Dioxide 29 (22-30) mmol/L Anion Gap 8 mmol/L BUN 18 (9-20) mg/dL Creatinine 0.89 (0.66-1.25) mg/dL Est GFR (CKD-EPI)AfAm >90 (>60 ml/min/1.73 sqM) Est GFR (CKD-EPI)NonAf >90 (>60 ml/min/1.73 sqM) Glucose 120 H (74-99) mg/dL Calcium 9.8 (8.4-10.2) mg/dL Total Bilirubin 0.6 (0.2-1.3) mg/dL AST 38 (17-59) U/L ALT 38 (4-49) U/L Alkaline Phosphatase 76 (38-126) U/L Total Protein 8.0 (6.3-8.2) g/dL Albumin 5.0 (3.5-5.0) g/dL Lipase 349 H (23-300) U/L Urine Color Urine Appearance (Clear) Urine pH (5.0-8.0) Ur Specific [place] (1.001-1.035) Urine Protein (Negative) Urine Glucose (UA) (Negative) Urine Ketones (Negative) Urine Blood (Negative) Urine Nitrite (Negative) Urine Bilirubin (Negative) Urine Urobilinogen (<2.0) mg/dL Ur Leukocyte Esterase (Negative) Coronavirus (PCR) Not Detected (Not Detectd) 10/21/21 Range/Units 13:01 WBC (3.8-10.6) k/uL RBC (4.30-5.90) m/uL Hgb (13.0-17.5) gm/dL Hct (39.0-53.0) % MCV (80.0-100.0) fL MCH (25.0-35.0) pg MCHC (31.0-37.0) g/dL RDW (11.5-15.5) % Plt Count (150-450) k/uL MPV Neutrophils % % Lymphocytes % % Monocytes % % Eosinophils % % Basophils % % Neutrophils # (1.3-7.7) k/uL Lymphocytes # (1.0-4.8) k/uL Monocytes # (0-1.0) k/uL Eosinophils # (0-0.7) k/uL Basophils # (0-0.2) k/uL Sodium (137-145) mmol/L Potassium (3.5-5.1) mmol/L Chloride (98-107) mmol/L Carbon Dioxide (22-30) mmol/L Anion Gap mmol/L BUN (9-20) mg/dL Creatinine (0.66-1.25) mg/dL Est GFR (CKD-EPI)AfAm (>60 ml/min/1.73 sqM) Est GFR (CKD-EPI)NonAf (>60 ml/min/1.73 sqM) Glucose (74-99) mg/dL Calcium (8.4-10.2) mg/dL Total Bilirubin (0.2-1.3) mg/dL AST (17-59) U/L ALT (4-49) U/L Alkaline Phosphatase (38-126) U/L Total Protein (6.3-8.2) g/dL Albumin (3.5-5.0) g/dL Lipase (23-300) U/L Urine Color Yellow Urine Appearance Clear (Clear) Urine pH 6.0 (5.0-8.0) Ur Specific [place] 1.028 (1.001-1.035) Urine Protein Trace H (Negative) Urine Glucose (UA) Negative (Negative) Urine Ketones Trace H (Negative) Urine Blood Negative (Negative) Urine Nitrite Negative (Negative) Urine Bilirubin Negative (Negative) Urine Urobilinogen 2.0 (<2.0) mg/dL Ur Leukocyte Esterase Negative (Negative) Coronavirus (PCR) (Not Detectd) Disposition Clinical Impression: Nausea and vomiting, Acute abdominal pain, Dehydration Disposition: HOME SELF-CARE Condition: Good Instructions (If sedation given, give patient instructions): Acute Nausea and Vomiting (ED), Abdominal Pain (ED), Cyclic Vomiting Syndrome (ED) Prescriptions: Dicyclomine [Bentyl] 20 mg PO QID PRN #20 tablet PRN Reason: Pain Omeprazole [PriLOSEC] 40 mg PO DAILY #30 cap Ondansetron Odt [Zofran Odt] 8 mg PO Q8HR PRN #15 tab PRN Reason: Nausea Is patient prescribed a controlled substance at d/c from ED?: No Referrals: Elvis Hoffmann Jr, DO [Primary Care Provider] - 1-2 days Magnolia Kline MD [STAFF PHYSICIAN] - 1-2 days Time of Disposition: 14:35
[2021-10-21 14:49] VITALS: BP 115/70; PULSE 66; RESP 18; TEMP 98.1
== END 2021-10-21 14:49 | disposition home or self-care (01) ==
LOC: EC 11:35
DX: R11.2 Nausea with vomiting, unspecified (principal); R10.9 Unspecified abdominal pain; E86.0 Dehydration; Z20.822 Contact with and (suspected) exposure to COVID-19; F41.9 Anxiety disorder, unspecified; F32.A Depression, unspecified; F17.200 Nicotine dependence, unspecified, uncomplicated; F12.90 Cannabis use, unspecified, uncomplicated; Z79.899 Other long term (current) drug therapy
CPT/HCPCS: 36415; 80053; 83690; 85025; 81003; 87635; 74022; 99284; 96374; 96375 ×2; 96361 ×2; J2270; J2765; J1885

== ENCOUNTER 2021-10-24 10:37 | Emergency (ER) | payer MEDICARE, OTHER ==
--- NOTE | 2021-10-24 10:56 | ED ---
General Adult HPI - General Chief complaint: Nausea/Vomiting/Diarrhea Stated complaint: Vomiting Time Seen by Provider: 10/24/21 10:47 Source: patient Mode of arrival: wheelchair Limitations: no limitations - History of Present Illness Initial comments: 61-year-old male presents to the emergency room for multiple complaints. Patient's complaining of left lower back pain. States his pain is chronic but is exacerbated. Denies bladder or bowel changes, saddle anesthesia, weakness or taking going of the legs. Patient also complaining of some him and does have a history of diverticulitis. At around 4 AM this morning he started vomiting. He does have a history of hyperemesis syndrome secondary to marijuana use. Patient recently seen in the emergency room with a negative workup about 3 days ago. No CAT scan obtained at that time. Minimal bump and lipase.Patient has no other complaints at this time including shortness of breath, chest pain, headache, or visual changes. - Related Data Home Medications Medication Instructions Recorded Confirmed Hydrocodone/Acetaminophen [[place] 1 tab PO QID 09/13/16 10/21/21 10-325] buPROPion HCL [Wellbutrin XL] 150 mg PO DAILY 09/13/16 10/21/21 ARIPiprazole [Abilify] 5 mg PO HS 12/10/19 10/21/21 Halobetasol Propionate [Ultravate 1 applic TOPICAL BID PRN 10/21/21 10/21/21 0.05%] Umeclidinium Brm/Vilanterol Tr 1 puff INHALATION RT-DAILY 10/21/21 10/21/21 [Anoro Ellipta 62.5-25 Mcg INH] Previous Rx's Medication Instructions Recorded Dicyclomine [Bentyl] 20 mg PO QID PRN #20 tablet 10/21/21 Omeprazole [PriLOSEC] 40 mg PO DAILY #30 cap 10/21/21 Ondansetron Odt [Zofran Odt] 8 mg PO Q8HR PRN #15 tab 10/21/21 Allergies Allergy/AdvReac Type Severity Reaction Status Date / Time No Known Allergies Allergy Verified 10/24/21 10:42 Review of Systems ROS Statement: Those systems with pertinent positive or pertinent negative responses have been documented in the HPI. ROS Other: All systems not noted in ROS Statement are negative. Past Medical History Past Medical History: No Reported History Additional Past Medical History / Comment(s): chronic back pain, diverticulitis History of Any Multi-Drug Resistant Organisms: None Reported Past Surgical History: Orthopedic Surgery Additional Past Surgical History / Comment(s): rt knee lt shoulder Past Psychological History: Anxiety, Depression Smoking Status: Current every day smoker Past Alcohol Use History: None Reported Past Drug Use History: Marijuana General Exam Limitations: no limitations General appearance: alert, in no apparent distress Head exam: Present: atraumatic Eye exam: Present: normal appearance, PERRL, EOMI. Absent: scleral icterus, conjunctival injection ENT exam: Present: normal exam, mucous membranes moist Neck exam: Present: normal inspection, full ROM Respiratory exam: Present: normal lung sounds bilaterally. Absent: respiratory distress, wheezes Cardiovascular Exam: Present: regular rate, normal rhythm, normal heart sounds GI/Abdominal exam: Present: soft, tenderness (Mid abdominal tenderness), normal bowel sounds. Absent: distended, guarding, rebound Neurological exam: Present: alert Course Vital Signs 10/24/21 10/24/21 10:38 12:31 Temperature 97.6 F Pulse Rate 53 L 57 L Respiratory 18 22 Rate Blood Pressure 155/91 141/65 O2 Sat by Pulse 98 98 Oximetry Medical Decision Making - Medical Decision Making Vitals are stable. CBC CMP unremarkable. Lipase is normal. Urinalysis is ne gative. CT abdomen and pelvis was obtained given patient's history of diverticulitis. However this revealed asymmetric wall thickening at the right dose sigmoid region along the left wall, consider a shot and for neoplasm. At this time there is no GI coverage and on-call surgeon is localized, does not see patients in the area outside of the hospital. I discussed the case with Dr. Mackey who is on-call for Dr. Hoffmann. He would like patient to follow up with Dr. Hoffmann on Tuesday and states they will arrange follow-up for patient. - Lab Data Result diagrams: 10/24/21 11:05 10/24/21 11:05 Lab Results 10/24/21 10/24/21 10/24/21 Range/Units 11:05 11:05 11:05 WBC 7.8 (3.8-10.6) k/uL RBC 4.94 (4.30-5.90) m/uL Hgb 15.3 (13.0-17.5) gm/dL Hct 45.6 (39.0-53.0) % MCV 92.3 (80.0-100.0) fL MCH 31.0 (25.0-35.0) pg MCHC 33.6 (31.0-37.0) g/dL RDW 12.4 (11.5-15.5) % Plt Count 214 (150-450) k/uL MPV 7.6 Neutrophils % 81 % Lymphocytes % 12 % Monocytes % 5 % Eosinophils % 1 % Basophils % 0 % Neutrophils # 6.3 (1.3-7.7) k/uL Lymphocytes # 1.0 (1.0-4.8) k/uL Monocytes # 0.4 (0-1.0) k/uL Eosinophils # 0.1 (0-0.7) k/uL Basophils # 0.0 (0-0.2) k/uL Sodium 138 (137-145) mmol/L Potassium 4.0 (3.5-5.1) mmol/L Chloride 107 (98-107) mmol/L Carbon Dioxide 25 (22-30) mmol/L Anion Gap 6 mmol/L BUN 21 H (9-20) mg/dL Creatinine 0.90 (0.66-1.25) mg/dL Est GFR (CKD-EPI)AfAm >90 (>60 ml/min/1.73 sqM) Est GFR (CKD-EPI)NonAf >90 (>60 ml/min/1.73 sqM) Glucose 116 H (74-99) mg/dL Calcium 9.2 (8.4-10.2) mg/dL Total Bilirubin 0.4 (0.2-1.3) mg/dL AST 30 (17-59) U/L ALT 32 (4-49) U/L Alkaline Phosphatase 71 (38-126) U/L Total Protein 6.6 (6.3-8.2) g/dL Albumin 4.2 (3.5-5.0) g/dL Amylase 52 (30-110) U/L Lipase 91 (23-300) U/L Urine Color Yellow Urine Appearance Clear (Clear) Urine pH 6.5 (5.0-8.0) Ur Specific [place] 1.021 (1.001-1.035) Urine Protein Negative (Negative) Urine Glucose (UA) Negative (Negative) Urine Ketones Negative (Negative) Urine Blood Negative (Negative) Urine Nitrite Negative (Negative) Urine Bilirubin Negative (Negative) Urine Urobilinogen <2.0 (<2.0) mg/dL Ur Leukocyte Esterase Negative (Negative) Disposition Clinical Impression: Abdominal pain Narrative: rectosigmoid wall thickening Disposition: HOME SELF-CARE Condition: Good Instructions (If sedation given, give patient instructions): Abdominal Pain (ED) Additional Instructions: I spoke with Dr. Mackey about your case. He would like you to follow up with Dr. Hoffmann on Tuesday so they can arrange for the appropriate follow-up to further evaluate the thickening in your colon such as a colonoscopy. Make sure to call the office first thing in the morning and tell them Dr. Mackey wanted Dr. Hoffmann to see you on Tuesday following the weekend ER visit. Is patient prescribed a controlled substance at d/c from ED?: No Referrals: Elvis Hoffmann Jr, [Primary Care Provider] - 1-2 days Time of Disposition: 14:15
[2021-10-24] MEDS ORDERED: SODIUM CHLORIDE 0.9% 1,000 ML IV STA (11:03)
[2021-10-24] MEDS ORDERED: KETOROLAC 15 MG/ML 1 ML VIAL IVP STA (11:03)
[2021-10-24] MEDS ORDERED: ONDANSETRON 4 MG/2 ML VIAL IVP STA (11:04)
[2021-10-24 11:14] LABS: Basophils % (A) 0 %; Eosinophils # (A) 0.1 k/uL (0-0.7); Eosinophils % (A) 1 %; HCT 45.6 % (39.0-53.0); HGB 15.3 gm/dL (13.0-17.5); Lymphocytes % (A) 12 %; MCHC 33.6 g/dL (31.0-37.0); MCV 92.3 fL (80.0-100.0); Mean Platelet Volume 7.6; Monocytes # (A) 0.4 k/uL (0-1.0); Monocytes % (A) 5 %; Neutrophils # (A) 6.3 k/uL (1.3-7.7); Neutrophils % (A) 81 %; Platelet Count 214 k/uL (150-450); RBC 4.94 m/uL (4.30-5.90); RDW 12.4 % (11.5-15.5); WBC 7.8 k/uL (3.8-10.6)
[2021-10-24 11:16] LABS: Appearance,Urine Clear (Clear); Bilirubin,Urine Negative (Negative); Blood,Urine Negative (Negative); Color,Urine Yellow; Glucose,Urine (UA) Negative (Negative); Ketones,Urine Negative (Negative); Leukocyte Esterase,Urine Negative (Negative); Nitrite,Urine Negative (Negative); PH, Urine 6.5 (5.0-8.0); Protein,Urine Negative (Negative); Specific Gravity,Urine 1.021 (1.001-1.035); Urobilinogen,Urine <2.0 mg/dL (<2.0)
[2021-10-24 11:34] LABS: ALT 32 U/L (4-49); AST 30 U/L (17-59); African American GFR (CKD) >90 (>60 ml/min/1.73 sqM); Albumin 4.2 g/dL (3.5-5.0); Alkaline Phosphatase 71 U/L (38-126); Amylase 52 U/L (30-110); Anion Gap 6 mmol/L; Blood Urea Nitrogen 21 mg/dL (9-20); Calcium 9.2 mg/dL (8.4-10.2); Carbon Dioxide 25 mmol/L (22-30); Chloride 107 mmol/L (98-107); Glucose 116 mg/dL (74-99); Lipase 91 U/L (23-300); Non-African American GFR(CKD) >90 (>60 ml/min/1.73 sqM); Sodium 138 mmol/L (137-145); Total Bilirubin 0.4 mg/dL (0.2-1.3); Total Protein 6.6 g/dL (6.3-8.2)
[2021-10-24] MEDS ORDERED: HYDROmorphone 0.5 MG/0.5 ML SYRINGE IVP STA ×2 (12:15→14:13)
[2021-10-24] MEDS ORDERED: diphenhydrAMINE 50 MG/ML 1 ML VIAL IVP STA (12:15)
[2021-10-24] MEDS ORDERED: METOCLOPRAMIDE 5 MG/ML 2 ML VIAL IVP STA (12:15)
--- NOTE | 2021-10-24 12:52 | CT ---
EXAMINATION TYPE: CT abdomen pelvis w con DATE OF EXAM: 10/24/2021 COMPARISON: 07/02/2021 INDICATION: Back pain and vomiting. DLP: 1175.1 mGycm, Automated exposure control for dose reduction was used. CONTRAST: 100ml mL of Isovue 300. Study performed without Oral Contrast TECHNIQUE: Axial images were obtained from above the diaphragm to the pubic rami in the axial plane a t 5 mm thick sections. Reconstructed images are reviewed on the computer in the coronal plane. FINDINGS: Limited CT sections are obtained the lung bases. The lung bases are clear. CT ABDOMEN: Liver: Mild fatty infiltration of the liver. Spleen: Normal Pancreas: Normal Adrenal glands: The adrenal glands are normal. Gallbladder: Normal Kidneys: No masses are evident. No hydronephrosis is present. No cysts are present. Delayed images were obtained through the kidneys, which remain unremarkable. Aorta: Vascular calcification is within the aorta. Inferior vena cava: Normal. CT PELVIS: Mild fecal debris is through the colon. Loops of bowel within the abdomen and pelvis are normal. Mul tiple diverticula are through the sigmoid colon. No inflammatory changes adjacent to suggest acute di verticulitis is evident. There may be some asymmetric wall thickening of the distal sigmoid colon and rectum on the left. Consider follow-up for possible neoplasm. The study is performed without oral contrast limiting evaluation. Appendix: Normal as visualized. Urinary bladder: Normal. Genitourinary structures: Prostate is somewhat prominent Osseous structures: No suspicious lytic or sclerotic lesions. IMPRESSIONS: 1. Diverticulosis without acute diverticulitis. 2. Clinical consideration for neoplasm at the rectosigmoid region along the left wall. Some asymmetri c wall thickening may be present at this location.
[2021-10-24 14:30] VITALS: BP 122/69; PULSE 55; RESP 18; TEMP 98.1
== END 2021-10-24 14:35 | disposition home or self-care (01) ==
LOC: EC 10:37
DX: R10.9 Unspecified abdominal pain (principal); F17.200 Nicotine dependence, unspecified, uncomplicated
CPT/HCPCS: 36415; 80053; 82150; 83690; 85025; 81003; 74177; 99284; 96374; 96375; 96376; 96361; J1200; J2765; J2405; J1885; J1170; Q9967

== ENCOUNTER → 2021-12-30 | Outpatient (CLI) | payer MEDICARE, OTHER ==
--- NOTE | 2021-12-30 12:04 | CT ---
EXAMINATION TYPE: CT chest w con DATE OF EXAM: 12/30/2021 COMPARISON: 09/25/2021 HISTORY: lung nodule CT DLP: 636 mGycm, Automated exposure control for dose reduction was used. CONTRAST: Performed injected with 70 mL of Isovue 300. TECHNIQUE: Axial images were obtained at 5 mm thick sections. Reconstructed images are reviewed on [employer] computer in the coronal plane. FINDINGS: Portion of the thyroid visualized is normal. There is a oval spiculated area in the mid right lung measuring 0.8 cm. Comparison is 0.7 cm which ma y be within measurement error or with minimal growth. Series 4 image 28. This area should be consider ed suspicious and PET/CT is recommended for additional workup. No enlarged mediastinal or hilar adenopathy is evident. The ascending aorta diameter at the level o f the main pulmonary artery is 3.4 cm. The main pulmonary artery diameter at the bifurcation is 2.[address] sections are obtained through the upper abdomen. Abdomen is essentially unremarkable. IMPRESSIONS: 1. Suspicious nodule right mid lung. PET/CT recommended for additional workup. Neoplasm is not exclud ed.
== END | disposition home or self-care (01) ==
LOC: RADCTMAIN 10:26
PROVIDERS: ATTEND Internal Medicine Critical Care Medicine
DX: R91.1 Solitary pulmonary nodule (principal)
CPT/HCPCS: 71260; Q9967

== ENCOUNTER 2022-01-01 11:31 | Emergency (ER) | payer MEDICARE, OTHER ==
[2022-01-01 11:37] VITALS: TEMP 98.2
[2022-01-01 12:10] LABS: Basophils % (A) 0 %; Eosinophils # (A) 0.1 k/uL (0-0.7); Eosinophils % (A) 1 %; HGB 16.7 gm/dL (13.0-17.5); Lymphocytes # (A) 1.5 k/uL (1.0-4.8); Lymphocytes % (A) 19 %; MCH 30.4 pg (25.0-35.0); MCHC 35.4 g/dL (31.0-37.0); MCV 85.9 fL (80.0-100.0); Mean Platelet Volume 8.1; Monocytes # (A) 0.2 k/uL (0-1.0); Monocytes % (A) 2 %; Neutrophils # (A) 5.7 k/uL (1.3-7.7); Neutrophils % (A) 76 %; Platelet Count 248 k/uL (150-450); RBC 5.48 m/uL (4.30-5.90); RDW 12.4 % (11.5-15.5); WBC 7.5 k/uL (3.8-10.6)
[2022-01-01] MEDS ORDERED: FAMOTIDINE 20 MG/2 ML VIAL IV STA (12:22)
[2022-01-01] MEDS ORDERED: HYDROmorphone 1 MG/ML 1 ML SYRINGE IVP STA (12:22)
[2022-01-01] MEDS ORDERED: ONDANSETRON 4 MG/2 ML VIAL IVP STA (12:22)
[2022-01-01 12:23] LABS: INR 0.9 (<1.2); Partial Thromboplastin Time 23.6 sec (22.0-30.0)
--- NOTE | 2022-01-01 12:25 | ED ---
General Adult HPI - General Chief complaint: Back Pain/Injury Stated complaint: chest pain, Nausea Time Seen by Provider: 01/01/22 12:00 Source: patient, RN notes reviewed, old records reviewed Mode of arrival: ambulatory Limitations: no limitations - History of Present Illness Initial comments: Patient is a pleasant 61-year-old male presenting to the emergency department with concerns with nausea vomiting. Onset was when he woke this morning. Patie nt states he does get similar symptoms frequently, approximately once per month. Patient has vomited around 5 times. Patient states lately he is just retching and nothing is coming up. She does have associated discomfort in his back, more right upper. Patient also states there is some anterior discomfort. Patient originally states chest however points to the epigastric region. During that fu rther evaluation patient agrees that all of his discomfort is below the rib cage and in the epigastrium. With this patient agrees there is no discomfort in the chest. No leg pain or leg swelling. No fever. - Related Data Home Medications Medication Instructions Recorded Confirmed Hydrocodone/Acetaminophen [[place] 1 tab PO QID 09/13/16 01/01/22 10-325] buPROPion HCL [Wellbutrin XL] 150 mg PO DAILY 09/13/16 01/01/22 ARIPiprazole [Abilify] 5 mg PO HS 12/10/19 01/01/22 Umeclidinium Brm/Vilanterol Tr 1 puff INHALATION RT-DAILY 10/21/21 01/01/22 [Anoro Ellipta 62.5-25 Mcg INH] Allergies Allergy/AdvReac Type Severity Reaction Status Date / Time No Known Allergies Allergy Verified 01/01/22 13:23 Review of Systems ROS Statement: Those systems with pertinent positive or pertinent negative responses have been documented in the HPI. ROS Other: All systems not noted in ROS Statement are negative. Constitutional: Denies: fever Eyes: Denies: eye pain ENT: Denies: ear pain Respiratory: Denies: cough Cardiovascular: Reports: as per HPI Endocrine: Denies: fatigue Gastrointestinal: Reports: as per HPI, abdominal pain, nausea, vomiting Musculoskeletal: Reports: back pain Neurological: Denies: weakness Past Medical History Past Medical History: No Reported History Additional Past Medical History / Comment(s): chronic back pain, diverticulitis History of Any Multi-Drug Resistant Organisms: None Reported Past Surgical History: Orthopedic Surgery Additional Past Surgical History / Comment(s): rt knee lt shoulder Past Psychological History: Anxiety, Depression Smoking Status: Current every day smoker Past Alcohol Use History: None Reported Past Drug Use History: Marijuana General Exam Limitations: no limitations General appearance: alert, in no apparent distress Head exam: Present: normocephalic Eye exam: Present: normal appearance Neck exam: Present: normal inspection Respiratory exam: Present: normal lung sounds bilaterally. Absent: chest wall tenderness Cardiovascular Exam: Present: regular rate, normal rhythm Expanded Peripheral pulses: 2+: Radial (R), Radial (L), Dorsalis Pedis (R), Dorsalis Pedis (L) GI/Abdominal exam: Present: soft, tenderness (Mild to moderate epigastric tenderness to palpation). Absent: distended Extremities exam: Present: normal inspection. Absent: pedal edema, calf tenderness Back exam: Present: tenderness (Mild tenderness and muscle fullness right lateral paraspinal approximate T5-T6.) Neurological exam: Present: alert. Absent: motor sensory deficit Psychiatric exam: Present: normal affect, normal mood Skin exam: Present: normal color Course Vital Signs 01/01/22 01/01/22 11:34 13:17 Temperature 98.2 F Pulse Rate 60 83 Respiratory 22 18 Rate Blood Pressure 154/94 120/65 O2 Sat by Pulse 99 94 L Oximetry EKG Findings - EKG Comments: EKG Findings:: Sinus rhythm rate 63. NC 128. QRS 101. QT 414. QTC 41. Normal axis. No acute ST change. Inferior Q waves. Medical Decision Making - Medical Decision Making Patient reevaluated and feeling much better. Patient does request more pain medication however is receptive to [place]. Discussion had regarding computed tomography scan and patient refuses secondary to feeling this is a chronic condition. - Lab Data Result diagrams: 01/01/22 12:03 01/01/22 12:03 Lab Results 01/01/22 01/01/22 01/01/22 Range/Units 12:03 12:03 12:03 WBC 7.5 (3.8-10.6) k/uL RBC 5.48 (4.30-5.90) m/uL Hgb 16.7 (13.0-17.5) gm/dL Hct 47.0 (39.0-53.0) % MCV 85.9 (80.0-100.0) fL MCH 30.4 (25.0-35.0) pg MCHC 35.4 (31.0-37.0) g/dL RDW 12.4 (11.5-15.5) % Plt Count 248 (150-450) k/uL MPV 8.1 Neutrophils % 76 % Lymphocytes % 19 % Monocytes % 2 % Eosinophils % 1 % Basophils % 0 % Neutrophils # 5.7 (1.3-7.7) k/uL Lymphocytes # 1.5 (1.0-4.8) k/uL Monocytes # 0.2 (0-1.0) k/uL Eosinophils # 0.1 (0-0.7) k/uL Basophils # 0.0 (0-0.2) k/uL PT 10.0 (9.0-12.0) sec INR 0.9 (<1.2) APTT 23.6 (22.0-30.0) sec D-Dimer (<0.60) mg/L FEU Sodium 138 (137-145) mmol/L Potassium 4.1 (3.5-5.1) mmol/L Chloride 105 (98-107) mmol/L Carbon Dioxide 22 (22-30) mmol/L Anion Gap 11 mmol/L BUN 12 (9-20) mg/dL Creatinine 0.86 (0.66-1.25) mg/dL Est GFR (CKD-EPI)AfAm >90 (>60 ml/min/1.73 sqM) Est GFR (CKD-EPI)NonAf >90 (>60 ml/min/1.73 sqM) Glucose 125 H (74-99) mg/dL Calcium 9.7 (8.4-10.2) mg/dL Total Bilirubin 0.7 (0.2-1.3) mg/dL AST 27 (17-59) U/L ALT 32 (4-49) U/L Alkaline Phosphatase 103 (38-126) U/L Troponin I (0.000-0.034) ng/mL Total Protein 8.1 (6.3-8.2) g/dL Albumin 5.0 (3.5-5.0) g/dL 01/01/22 01/01/22 Range/Units 12:03 12:03 WBC (3.8-10.6) k/uL RBC (4.30-5.90) m/uL Hgb (13.0-17.5) gm/dL Hct (39.0-53.0) % MCV (80.0-100.0) fL MCH (25.0-35.0) pg MCHC (31.0-37.0) g/dL RDW (11.5-15.5) % Plt Count (150-450) k/uL MPV Neutrophils % % Lymphocytes % % Monocytes % % Eosinophils % % Basophils % % Neutrophils # (1.3-7.7) k/uL Lymphocytes # (1.0-4.8) k/uL Monocytes # (0-1.0) k/uL Eosinophils # (0-0.7) k/uL Basophils # (0-0.2) k/uL PT (9.0-12.0) sec INR (<1.2) APTT (22.0-30.0) sec D-Dimer 0.30 (<0.60) mg/L FEU Sodium (137-145) mmol/L Potassium (3.5-5.1) mmol/L Chloride (98-107) mmol/L Carbon Dioxide (22-30) mmol/L Anion Gap mmol/L BUN (9-20) mg/dL Creatinine (0.66-1.25) mg/dL Est GFR (CKD-EPI)AfAm (>60 ml/min/1.73 sqM) Est GFR (CKD-EPI)NonAf (>60 ml/min/1.73 sqM) Glucose (74-99) mg/dL Calcium (8.4-10.2) mg/dL Total Bilirubin (0.2-1.3) mg/dL AST (17-59) U/L ALT (4-49) U/L Alkaline Phosphatase (38-126) U/L Troponin I <0.012 (0.000-0.034) ng/mL Total Protein (6.3-8.2) g/dL Albumin (3.5-5.0) g/dL - Radiology Data Radiology results: image reviewed (Chest and abdominal x-ray negative for acute process) Disposition Clinical Impression: Vomiting Disposition: HOME SELF-CARE Condition: Stable Instructions (If sedation given, give patient instructions): Acute Nausea and Vomiting (ED), Acute Abdominal Pain (ED), Back Pain (ED) Additional Instructions: Please do follow-up to primary care physician in the next day or 2 for recheck. Return for vomiting, back chest or abdominal pain, fevers, worsening or change in symptoms, or other concerns. Is patient prescribed a controlled substance at d/c from ED?: No Referrals: Elvis Hoffmann Jr, [Primary Care Provider] - 1-2 days Time of Disposition: 14:03
[2022-01-01 12:34] LABS: ALT 32 U/L (4-49); AST 27 U/L (17-59); African American GFR (CKD) >90 (>60 ml/min/1.73 sqM); Alkaline Phosphatase 103 U/L (38-126); Anion Gap 11 mmol/L; Blood Urea Nitrogen 12 mg/dL (9-20); Calcium 9.7 mg/dL (8.4-10.2); Carbon Dioxide 22 mmol/L (22-30); Chloride 105 mmol/L (98-107); Glucose 125 mg/dL (74-99); Non-African American GFR(CKD) >90 (>60 ml/min/1.73 sqM); Potassium 4.1 mmol/L (3.5-5.1); Sodium 138 mmol/L (137-145); Total Bilirubin 0.7 mg/dL (0.2-1.3); Total Protein 8.1 g/dL (6.3-8.2)
--- NOTE | 2022-01-01 12:39 | XR ---
EXAMINATION TYPE: XR chest 2V DATE OF EXAM: 01/01/2022 COMPARISON: 08/20/2021 INDICATION: Posterior chest pain TECHNIQUE: Frontal and lateral views of the chest are obtained. FINDINGS: The heart size is normal. The pulmonary vasculature is normal. The lungs are clear. IMPRESSION: 1. No acute pulmonary process.
--- NOTE | 2022-01-01 12:41 | XR ---
EXAMINATION TYPE: XR abdomen 1V DATE OF EXAM: 01/01/2022 COMPARISON: 05/05/2021 INDICATION: Pain upper abdomen TECHNIQUE: Single view abdomen FINDINGS: There is a normal bowel gas pattern. Psoas margins are normal. No organomegaly is present. IMPRESSION: 1. Unremarkable Abdomen
[2022-01-01 13:20] VITALS: BP 120/65; PULSE 83; RESP 18
== END 2022-01-01 14:29 | disposition home or self-care (01) ==
LOC: EC 11:31
DX: R11.2 Nausea with vomiting, unspecified (principal); F17.200 Nicotine dependence, unspecified, uncomplicated
CPT/HCPCS: 36415; 93005; 85379; 80053; 84484; 85025; 85610; 85730; 71046; 74018; 99284; 96374; 96375; J2405; J1170

== ENCOUNTER → 2022-01-02 | Outpatient (CLI) | payer MEDICARE, OTHER ==
--- NOTE | 2022-01-03 21:47 | PE ---
EXAMINATION TYPE: PET CT fusion skull to thigh DATE OF EXAM: 01/02/2022 COMPARISON: Chest CT December 30, 2021 and older CTs. HISTORY: Solitary pulmonary nodule, abnormal CT. TECHNIQUE: Following the intravenous administration of 11.22 mCi of F-18 FDG, whole body images are performed from the skull base to the midthigh. Images are reviewed on the computer in the coronal, a xial, and sagittal planes. Reconstructed rotating images are created on independent workstation and reviewed on the computer. A localization and attenuation correction CT is performed in conjunction with the PET scan. SCAN: Initial Scan FINDINGS: SKULL BASE AND NECK: No areas of abnormal hypermetabolic uptake. CHEST, MEDIASTINUM, AND HILAR REGION: Stable 8 x 7 mm spiculated nodule or nodular scarring right mid lung axial image 85 is ametabolic. No areas of abnormal metabolic uptake in the thorax. ABDOMEN AND PELVIS: Normal excretion is seen. No adrenal masses. No areas of abnormal hypermetabolic uptake. OSSEOUS STRUCTURES: No areas of abnormal hypermetabolic uptake. OTHER CT: Subareolar gynecomastia bilaterally is redemonstrated. Sigmoid colonic diverticula. Mildly enlarged prostate consistent with BPH. Mild to moderate concentri c wall thickening in the urinary bladder presumed product of outlet obstruction. Small fat-containing right inguinal hernia. Mild to moderate disc space narrowing lower lumbar levels. IMPRESSION: No areas of abnormal hypermetabolic uptake to suggest malignancy. Stable 8 x 7 mm spicula crys nodule lower nodular scarring right midlung is ametabolic. Advise follow-up CT and/or PET/CT anant rodneying in 6 months time to reassess since findings is new from 2019 study.
== END | disposition home or self-care (01) ==
LOC: RADPETMAIN 10:14
PROVIDERS: ATTEND Internal Medicine Critical Care Medicine
DX: R91.1 Solitary pulmonary nodule (principal)
CPT/HCPCS: 78815; A9552

== ENCOUNTER → 2022-01-19 | Outpatient (CLI) | payer MEDICARE, OTHER ==
[2022-01-19 14:27] LABS: Basophils # (A) 0.02 X 10*3/uL (0.00-0.10); Basophils % (A) 0.4 %; Eosinophils # (A) 0.09 X 10*3/uL (0.04-0.35); Eosinophils % (A) 1.8 %; HCT 44.3 % (39.6-50.0); Immature Grans, Automated 0.4 %; Lymphocytes # (A) 1.79 X 10*3/uL (0.90-5.00); MCH 29.9 pg (27.0-32.0); MCHC 33.9 g/dL (32.0-37.0); MCV 88.4 fL (80.0-97.0); Monocytes # (A) 0.41 X 10*3/uL (0.20-1.00); NRBC Per 100 WBC 0 /100 WBCS (0.0-0.0); Neutrophils # (A) 2.78 X 10*3/uL (1.80-7.70); Neutrophils % (A) 54.4 %; Platelet Count 209 X 10*3/uL (140-440); RBC 5.01 X 10*6/uL (4.40-5.60); RDW 12.4 % (11.5-14.5); WBC 5.11 X 10*3/uL (4.50-10.00)
[2022-01-19 14:43] LABS: ALT 10 U/L (10-49); AST 19 U/L (14-35); African American GFR (CKD) 83.5 (60.0-200.0); Albumin 4.4 g/dL (3.8-4.9); Albumin/Globulin Ratio 1.63 (1.60-3.17); Alkaline Phosphatase 83 U/L (41-126); BUN/Creat Ratio 9.64 Ratio (12.00-20.00); Blood Urea Nitrogen 10.6 mg/dL (9.0-27.0); Calcium 9.1 mg/dL (8.7-10.3); Carbon Dioxide 24.2 mmol/L (20.0-27.5); Chloride 104 mmol/L (96-109); Chol/HDL Ratio 3.03 Ratio; Globulin 2.7 g/dL (1.6-3.3); Glucose 92 mg/dL (70-110); LDL Cholesterol,Calculated 87.9 mg/dL (0.0-131.0); Non-African American GFR(CKD) 72.1 (60.0-200.0); Potassium 4.3 mmol/L (3.5-5.5); Sodium 137 mmol/L (135-145); Total Protein 7.1 g/dL (6.2-8.2); VLDL Calculation 11.22 mg/dL (5.00-40.00)
== END | disposition home or self-care (01) ==
LOC: LABWHC1 09:32
PROVIDERS: ATTEND Family Medicine
DX: Z00.00 Encounter for general adult medical examination without abnormal findings (principal); F41.8 Other specified anxiety disorders; Z12.5 Encounter for screening for malignant neoplasm of prostate
CPT/HCPCS: 36415; 80053; 80061; 84153; 85025

== ENCOUNTER 2022-03-03 09:59 | Emergency (ER) | payer MEDICARE, OTHER ==
[2022-03-03 10:03] VITALS: TEMP 97.3
[2022-03-03] MEDS ORDERED: MORPHINE SULFATE 4 MG/ML SYRINGE IV STA (10:45)
[2022-03-03] MEDS ORDERED: SODIUM CHLORIDE 0.9% 1,000 ML IV STA ×2 (10:45→12:43)
[2022-03-03] MEDS ORDERED: ONDANSETRON 4 MG/2 ML VIAL IVP STA (10:45)
--- NOTE | 2022-03-03 10:59 | ED ---
General Adult HPI - General Chief complaint: Nausea/Vomiting/Diarrhea Stated complaint: vomiting, back pain Time Seen by Provider: 03/03/22 10:13 Source: patient, RN notes reviewed Mode of arrival: ambulatory Limitations: no limitations - History of Present Illness Initial comments: Patient is a 61-year-old on presenting to the emergency room with complaints of renew sickness. He states that on Tuesday 2 days ago he was not feeling well with generalized malaise, abdominal pain discomfort, nausea and vomiting. He reports that yesterday he felt better and then again today he seemed to have worsened and has been nauseous and dry heaving throughout the day. He also reports an increase in intensity of his chronic back pain from lying in the bed for the last few days without any changes in characteristics, focal neurological deficits, weakness not directly related to generalized malaise or other red flag symptoms of cauda equina. He reports decreased intake causing decreased urine output but denies any dysuria or hematuria. He denies any diarrhea, headache or dizziness. He does report occasional feeling hot and cold but is not checking his temperatures. She does report taking a home COVID test on Tuesday which was negative. In addition to his chronic back pain he has a past medical history significant for diverticulosis. - Related Data Home Medications Medication Instructions Recorded Confirmed Hydrocodone/Acetaminophen [[place] 1 tab PO QID 09/13/16 03/03/22 10-325] buPROPion HCL [Wellbutrin XL] 150 mg PO DAILY 09/13/16 03/03/22 ARIPiprazole [Abilify] 5 mg PO HS 12/10/19 03/03/22 Allergies Allergy/AdvReac Type Severity Reaction Status Date / Time No Known Allergies Allergy Verified 03/03/22 11:45 Review of Systems ROS Statement: Those systems with pertinent positive or pertinent negative responses have been documented in the HPI. ROS Other: All systems not noted in ROS Statement are negative. Past Medical History Past Medical History: Musculoskeletal Disorder Additional Past Medical History / Comment(s): chronic back pain, diverticulitis History of Any Multi-Drug Resistant Organisms: None Reported Past Surgical History: Orthopedic Surgery Additional Past Surgical History / Comment(s): rt knee lt shoulder Past Psychological History: Anxiety, Depression Smoking Status: Current every day smoker Past Alcohol Use History: None Reported Past Drug Use History: Marijuana General Exam General appearance: alert, in no apparent distress Head exam: Present: atraumatic, normocephalic, normal inspection Eye exam: Present: normal appearance, PERRL, EOMI. Absent: scleral icterus, conjunctival injection, periorbital swelling ENT exam: Present: normal exam, mucous membranes moist Neck exam: Present: normal inspection, full ROM Respiratory exam: Present: normal lung sounds bilaterally. Absent: respiratory distress, wheezes, rales, rhonchi, stridor Cardiovascular Exam: Present: regular rate, normal rhythm, normal heart sounds. Absent: systolic murmur, diastolic murmur, rubs, gallop, clicks GI/Abdominal exam: Present: soft, tenderness (Generalized mild), normal bowel sounds. Absent: distended, guarding, rebound, rigid Rectal exam: Present: deferred Extremities exam: Present: normal inspection. Absent: pedal edema, joint swelling Back exam: Present: normal inspection, paraspinal tenderness (Mid to lower back). Absent: CVA tenderness (R), CVA tenderness (L), vertebral tenderness Neurological exam: Present: alert, oriented X3, CN II-XII intact Psychiatric exam: Present: normal affect, normal mood Skin exam: Present: warm, dry, intact, normal color. Absent: rash Course Vital Signs 03/03/22 03/03/22 03/03/22 10:00 10:03 14:13 Temperature 97.3 F L Pulse Rate 56 L 75 Respiratory 22 20 Rate Blood Pressure 157/56 130/75 O2 Sat by Pulse 96 97 Oximetry - Reevaluation(s) Reevaluation #2: Back pain persists despite Toradol and morphine will give dose of Dilaudid. Increased in intensity but no change in characteristics or location of chronic back pain no indication for diagnostic imaging. Discussed possible need for admission for intractable pain pain persists. Time: 13:55 Medical Decision Making - Medical Decision Making 61-year-old male presenting with abdominal pain, nausea and vomiting ongoing for 2 days with some improvement in symptoms yesterday with returned today. Along with increase in chronic back pain. Given a problem of onset with out any diarrhea, dysuria or hematuria high probability for viral illness with acute on chronic back pain. Will obtain CBC, CMP, amylase, lipase, urinalysis along with Cephid-4 for COVID, influenza and RSV. We'll give IV hydration along with Zofran for nausea and morphine for pain. Will monitor response. No indication for diagnostic imaging at this time. CBC, CMP, amylase, lipase and urinalysis all unremarkable with the exception of trace protein and mucus in the urine along with glucose of 116. COVID, influenza and RSV swabs all negative. Back pain persists despite morphine. Nausea and abdominal discomfort M improved with first IV fluid bolus. Will give second liter of IV fluid bolus and dose of Toradol for pain and monitor response. Still with pain as noted in reevaluation after Toradol will give Dilaudid and monitor if no continued response may require admission for pain control however in the absence of abnormal laboratory studies and unchanged characteristic/location of chronic pain no indication for diagnostic imaging. Pain improved after Dilaudid. Discussed findings and conservative therapy of no diagnostic imaging at this time and advised discharge home with continued conservative management. Patient is agreeable to this. Will discharge home in stable condition with continuation of home pain medications for chronic back pain and good hydration for GI symptoms. Return parameters reviewed. Case discussed with Dr. Obrien. - Lab Data Result diagrams: 03/03/22 10:46 03/03/22 10:46 Lab Results 03/03/22 03/03/22 03/03/22 Range/Units 10:46 10:46 10:46 WBC 8.7 (3.8-10.6) k/uL RBC 5.33 (4.30-5.90) m/uL Hgb 16.4 (13.0-17.5) gm/dL Hct 46.4 (39.0-53.0) % MCV 87.1 (80.0-100.0) fL MCH 30.9 (25.0-35.0) pg MCHC 35.4 (31.0-37.0) g/dL RDW 12.4 (11.5-15.5) % Plt Count 211 (150-450) k/uL MPV 8.4 Neutrophils % 75 % Lymphocytes % 20 % Monocytes % 4 % Eosinophils % 0 % Basophils % 0 % Neutrophils # 6.6 (1.3-7.7) k/uL Lymphocytes # 1.7 (1.0-4.8) k/uL Monocytes # 0.3 (0-1.0) k/uL Eosinophils # 0.0 (0-0.7) k/uL Basophils # 0.0 (0-0.2) k/uL Sodium 138 (137-145) mmol/L Potassium 4.0 (3.5-5.1) mmol/L Chloride 106 (98-107) mmol/L Carbon Dioxide 22 (22-30) mmol/L Anion Gap 10 mmol/L BUN 17 (9-20) mg/dL Creatinine 0.81 (0.66-1.25) mg/dL Est GFR (CKD-EPI)AfAm >90 (>60 ml/min/1.73 sqM) Est GFR (CKD-EPI)NonAf >90 (>60 ml/min/1.73 sqM) Glucose 116 H (74-99) mg/dL Calcium 9.4 (8.4-10.2) mg/dL Total Bilirubin 0.9 (0.2-1.3) mg/dL AST 27 (17-59) U/L ALT 31 (4-49) U/L Alkaline Phosphatase 83 (38-126) U/L Total Protein 7.4 (6.3-8.2) g/dL Albumin 4.7 (3.5-5.0) g/dL Amylase 49 (30-110) U/L Lipase 70 (23-300) U/L Urine Color Urine Appearance (Clear) Urine pH (5.0-8.0) Ur Specific [place] (1.001-1.035) Urine Protein (Negative) Urine Glucose (UA) (Negative) Urine Ketones (Negative) Urine Blood (Negative) Urine Nitrite (Negative) Urine Bilirubin (Negative) Urine Urobilinogen (<2.0) mg/dL Ur Leukocyte Esterase (Negative) Urine RBC (0-5) /hpf Urine WBC (0-5) /hpf Hyaline Casts (0-2) /lpf Urine Mucus (None) /hpf Influenza Type A (PCR) Not Detected (Not Detectd) Influenza Type B (PCR) Not Detected (Not Detectd) RSV (PCR) Not Detected (Not Detectd) SARS-CoV-2 (PCR) Not Detected (Not Detectd) 03/03/22 Range/Units 10:50 WBC (3.8-10.6) k/uL RBC (4.30-5.90) m/uL Hgb (13.0-17.5) gm/dL Hct (39.0-53.0) % MCV (80.0-100.0) fL MCH (25.0-35.0) pg MCHC (31.0-37.0) g/dL RDW (11.5-15.5) % Plt Count (150-450) k/uL MPV Neutrophils % % Lymphocytes % % Monocytes % % Eosinophils % % Basophils % % Neutrophils # (1.3-7.7) k/uL Lymphocytes # (1.0-4.8) k/uL Monocytes # (0-1.0) k/uL Eosinophils # (0-0.7) k/uL Basophils # (0-0.2) k/uL Sodium (137-145) mmol/L Potassium (3.5-5.1) mmol/L Chloride (98-107) mmol/L Carbon Dioxide (22-30) mmol/L Anion Gap mmol/L BUN (9-20) mg/dL Creatinine (0.66-1.25) mg/dL Est GFR (CKD-EPI)AfAm (>60 ml/min/1.73 sqM) Est GFR (CKD-EPI)NonAf (>60 ml/min/1.73 sqM) Glucose (74-99) mg/dL Calcium (8.4-10.2) mg/dL Total Bilirubin (0.2-1.3) mg/dL AST (17-59) U/L ALT (4-49) U/L Alkaline Phosphatase (38-126) U/L Total Protein (6.3-8.2) g/dL Albumin (3.5-5.0) g/dL Amylase (30-110) U/L Lipase (23-300) U/L Urine Color Yellow Urine Appearance Clear (Clear) Urine pH 7.0 (5.0-8.0) Ur Specific [place] 1.029 (1.001-1.035) Urine Protein 1+ H (Negative) Urine Glucose (UA) Negative (Negative) Urine Ketones Negative (Negative) Urine Blood Negative (Negative) Urine Nitrite Negative (Negative) Urine Bilirubin Negative (Negative) Urine Urobilinogen <2.0 (<2.0) mg/dL Ur Leukocyte Esterase Negative (Negative) Urine RBC 1 (0-5) /hpf Urine WBC <1 (0-5) /hpf Hyaline Casts 1 (0-2) /lpf Urine Mucus Few H (None) /hpf Influenza Type A (PCR) (Not Detectd) Influenza Type B (PCR) (Not Detectd) RSV (PCR) (Not Detectd) SARS-CoV-2 (PCR) (Not Detectd) Disposition Clinical Impression: Nausea and vomiting, Acute exacerbation of chronic low back pain Disposition: HOME SELF-CARE Condition: Stable Instructions (If sedation given, give patient instructions): Acute Nausea and Vomiting (ED), Chronic Back Pain (DC) Additional Instructions: Please drink plenty of fluids and resume a bland diet. Utilize your already pre scribed [place] for your chronic back pain as needed and prescribed. Please return to the Emergency Department if symptoms worsen or any other concerns. Is patient prescribed a controlled substance at d/c from ED?: No Referrals: Elvis Hoffmann Jr, DO [Primary Care Provider] - 1-2 days Time of Disposition: 14:49
[2022-03-03 11:09] LABS: Appearance,Urine Clear (Clear); Bilirubin,Urine Negative (Negative); Blood,Urine Negative (Negative); Color,Urine Yellow; Glucose,Urine (UA) Negative (Negative); Hyaline Casts,Urine 1 /lpf (0-2); Ketones,Urine Negative (Negative); Leukocyte Esterase,Urine Negative (Negative); Mucus,Urine Few /hpf; Nitrite,Urine Negative (Negative); Protein,Urine 1+ (Negative); RBC,Urine 1 /hpf (0-5); Specific Gravity,Urine 1.029 (1.001-1.035); Urobilinogen,Urine <2.0 mg/dL (<2.0); WBC,Urine <1 /hpf (0-5)
[2022-03-03 11:09] LABS: ALT 31 U/L (4-49); AST 27 U/L (17-59); African American GFR (CKD) >90 (>60 ml/min/1.73 sqM); Albumin 4.7 g/dL (3.5-5.0); Alkaline Phosphatase 83 U/L (38-126); Amylase 49 U/L (30-110); Anion Gap 10 mmol/L; Blood Urea Nitrogen 17 mg/dL (9-20); Calcium 9.4 mg/dL (8.4-10.2); Carbon Dioxide 22 mmol/L (22-30); Chloride 106 mmol/L (98-107); Glucose 116 mg/dL (74-99); Lipase 70 U/L (23-300); Non-African American GFR(CKD) >90 (>60 ml/min/1.73 sqM); Sodium 138 mmol/L (137-145); Total Bilirubin 0.9 mg/dL (0.2-1.3); Total Protein 7.4 g/dL (6.3-8.2)
[2022-03-03 11:12] LABS: Basophils % (A) 0 %; Eosinophils % (A) 0 %; HCT 46.4 % (39.0-53.0); HGB 16.4 gm/dL (13.0-17.5); Lymphocytes # (A) 1.7 k/uL (1.0-4.8); Lymphocytes % (A) 20 %; MCH 30.9 pg (25.0-35.0); MCHC 35.4 g/dL (31.0-37.0); MCV 87.1 fL (80.0-100.0); Mean Platelet Volume 8.4; Monocytes # (A) 0.3 k/uL (0-1.0); Monocytes % (A) 4 %; Neutrophils # (A) 6.6 k/uL (1.3-7.7); Neutrophils % (A) 75 %; Platelet Count 211 k/uL (150-450); RBC 5.33 m/uL (4.30-5.90); RDW 12.4 % (11.5-15.5); WBC 8.7 k/uL (3.8-10.6)
[2022-03-03] MEDS ORDERED: KETOROLAC 15 MG/ML 1 ML VIAL IVP STA (12:43)
[2022-03-03] MEDS ORDERED: HYDROmorphone 1 MG/ML 1 ML SYRINGE IVP STA (13:55)
[2022-03-03 17:32] VITALS: BP 136/72; PULSE 72; RESP 18
== END 2022-03-03 17:08 | disposition home or self-care (01) ==
LOC: EC 09:59
DX: R11.2 Nausea with vomiting, unspecified (principal); G89.29 Other chronic pain; M54.50 Low back pain, unspecified; F41.9 Anxiety disorder, unspecified; F32.A Depression, unspecified; F17.200 Nicotine dependence, unspecified, uncomplicated; F12.90 Cannabis use, unspecified, uncomplicated; Z20.822 Contact with and (suspected) exposure to COVID-19
CPT/HCPCS: 36415; 80053; 82150; 83690; 85025; 81001; 87636; 99284; 96374; 96375 ×3; 96361 ×2; J2270; J2405; J1170; J1885

== ENCOUNTER 2022-04-22 08:03 | Emergency (ER) | payer MEDICARE, OTHER ==
[2022-04-22 08:07] VITALS: TEMP 97.7
[2022-04-22] MEDS ORDERED: SODIUM CHLORIDE 0.9% 2,000 ML IV STA (08:24)
[2022-04-22] MEDS ORDERED: METOCLOPRAMIDE 5 MG/ML 2 ML VIAL IVP STA (08:24)
[2022-04-22] MEDS ORDERED: KETOROLAC 15 MG/ML 1 ML VIAL IVP STA (08:24)
[2022-04-22] MEDS ORDERED: diphenhydrAMINE 50 MG/ML 1 ML VIAL IVP STA (08:24)
[2022-04-22 09:08] LABS: Basophils % (A) 1 %; Eosinophils # (A) 0.1 k/uL (0-0.7); Eosinophils % (A) 1 %; HCT 46.2 % (39.0-53.0); Lymphocytes # (A) 1.4 k/uL (1.0-4.8); Lymphocytes % (A) 16 %; MCHC 34.6 g/dL (31.0-37.0); MCV 86.6 fL (80.0-100.0); Mean Platelet Volume 7.8; Monocytes # (A) 0.3 k/uL (0-1.0); Monocytes % (A) 4 %; Neutrophils # (A) 6.8 k/uL (1.3-7.7); Neutrophils % (A) 78 %; Platelet Count 218 k/uL (150-450); RBC 5.33 m/uL (4.30-5.90); RDW 12.5 % (11.5-15.5); WBC 8.7 k/uL (3.8-10.6)
[2022-04-22 09:35] LABS: ALT 29 U/L (4-49); AST 29 U/L (17-59); African American GFR (CKD) >90 (>60 ml/min/1.73 sqM); Albumin 4.6 g/dL (3.5-5.0); Alkaline Phosphatase 96 U/L (38-126); Anion Gap 8 mmol/L; Blood Urea Nitrogen 12 mg/dL (9-20); Calcium 9.1 mg/dL (8.4-10.2); Carbon Dioxide 25 mmol/L (22-30); Chloride 106 mmol/L (98-107); Glucose 107 mg/dL (74-99); Lipase 105 U/L (23-300); Non-African American GFR(CKD) >90 (>60 ml/min/1.73 sqM); Potassium 4.2 mmol/L (3.5-5.1); Sodium 139 mmol/L (137-145); Total Bilirubin 0.5 mg/dL (0.2-1.3); Total Protein 7.6 g/dL (6.3-8.2)
[2022-04-22 10:43] LABS: Appearance,Urine Clear (Clear); Bilirubin,Urine Negative (Negative); Blood,Urine Negative (Negative); Color,Urine Yellow; Glucose,Urine (UA) Negative (Negative); Ketones,Urine 1+ (Negative); Leukocyte Esterase,Urine Negative (Negative); Nitrite,Urine Negative (Negative); Protein,Urine Trace (Negative); Specific Gravity,Urine 1.021 (1.001-1.035); Urobilinogen,Urine <2.0 mg/dL (<2.0)
[2022-04-22] MEDS ORDERED: ONDANSETRON 4 MG/2 ML VIAL IVP STA (10:43)
[2022-04-22] MEDS ORDERED: HYDROmorphone 1 MG/ML 1 ML SYRINGE IVP STA ×2 (10:43→13:26)
--- NOTE | 2022-04-22 11:03 | ED ---
General Adult HPI - General Chief complaint: Nausea/Vomiting/Diarrhea Stated complaint: Vomiting Time Seen by Provider: 04/22/22 08:10 Source: patient Mode of arrival: ambulatory Limitations: no limitations - History of Present Illness Initial comments: 61-year-old male with past medical history of chronic back pain, diverticulitis or presents to the emergency department with nausea and vomiting. Patient does have cyclic episodes of nausea and vomiting where he will need to come into the emergency department for evaluation. States that the retching causes exacerbation in his back pain. He does take [place] at home for the back pain. Denies any sick contacts. Denies eating any tainted. No fevers or chills. Has thrown up approximately 5 times. Nonbilious and nonbloody. He denies chest pain or shortness of breath. No abdominal pain. His back pain is similar in nature as his chronic back pain however exacerbated in intensity. He takes N [place] at home however hasn't had any improvement in his symptoms. No other alleviating, precipitating or modifying factors - Related Data Home Medications Medication Instructions Recorded Confirmed Hydrocodone/Acetaminophen [[place] 1 tab PO QID 09/13/16 04/22/22 10-325] ARIPiprazole [Abilify] 5 mg PO HS 12/10/19 04/22/22 buPROPion XL [Wellbutrin XL] 300 mg PO DAILY 04/22/22 04/22/22 Previous Rx's Medication Instructions Recorded Metoclopramide [Reglan] 10 mg PO TID PRN #15 tab 04/22/22 Allergies Allergy/AdvReac Type Severity Reaction Status Date / Time No Known Allergies Allergy Verified 04/22/22 11:05 Review of Systems ROS Statement: Those systems with pertinent positive or pertinent negative responses have been documented in the HPI. ROS Other: All systems not noted in ROS Statement are negative. Past Medical History Past Medical History: Musculoskeletal Disorder Additional Past Medical History / Comment(s): chronic back pain, diverticulitis History of Any Multi-Drug Resistant Organisms: None Reported Past Surgical History: Orthopedic Surgery Additional Past Surgical History / Comment(s): rt knee lt shoulder Past Psychological History: Anxiety, Depression Smoking Status: Current every day smoker Past Alcohol Use History: None Reported Past Drug Use History: Marijuana General Exam Limitations: no limitations General appearance: alert, in distress (actively vomiting) Head exam: Present: atraumatic, normocephalic, normal inspection Eye exam: Present: normal appearance, PERRL, EOMI. Absent: scleral icterus, conjunctival injection, periorbital swelling ENT exam: Present: normal exam, mucous membranes moist Neck exam: Present: normal inspection. Absent: tenderness, meningismus, lymph adenopathy Respiratory exam: Present: normal lung sounds bilaterally. Absent: respiratory distress, wheezes, rales, rhonchi, stridor Cardiovascular Exam: Present: regular rate, normal rhythm, normal heart sounds. Absent: systolic murmur, diastolic murmur, rubs, gallop, clicks GI/Abdominal exam: Present: soft, normal bowel sounds. Absent: distended, tenderness, guarding, rebound, rigid Extremities exam: Present: normal inspection, full ROM, normal capillary refill. Absent: tenderness, pedal edema, joint swelling, calf tenderness Back exam: Present: normal inspection Neurological exam: Present: alert, oriented X3, CN II-XII intact Psychiatric exam: Present: normal affect, normal mood Skin exam: Present: warm, dry, intact, normal color. Absent: rash Course Vital Signs 04/22/22 04/22/22 04/22/22 08:03 12:09 13:40 Temperature 97.7 F Pulse Rate 58 L 62 62 Respiratory 18 14 16 Rate Blood Pressure 168/76 147/68 137/86 O2 Sat by Pulse 98 98 96 Oximetry 04/22/22 14:42 Temperature Pulse Rate 78 Respiratory 16 Rate Blood Pressure 102/68 O2 Sat by Pulse 95 Oximetry Medical Decision Making - Medical Decision Making Was pt. sent in by a medical professional or institution (RM Hayden, COMMERCIAL ROOFING ESTIMATOR, urgent care, hospital, or halfway...) When possible be specific @ -[No] Did you speak to anyone other than the patient for history (EMS, parent, family, police, friend...)? What history was obtained from this source @ -[No] Did you review nursing and triage notes (agree or disagree)? Why? @ -[I reviewed and agree with nursing and triage notes] Were old charts reviewed (outside hosp., previous admission, EMS record, old EKG, old radiological studies, urgent care reports/EKG's, halfway records)? Report findings Yes, patient has been to the ED several times with same complaint Differential Diagnosis (chest pain, altered mental status, abdominal pain women, abdominal pain men, vaginal bleeding, weakness, fever, dyspnea, syncope, headache, dizziness, GI bleed, back pain, seizure, CVA, palpatations, mental health)? Appendicitis, cholecystitis, diverticulosis, ischemic bowel, pancreatitis, hepatitis, UTI, gastroenteritis, AAA, incarcerated hernia, bowel obstruction, constipation, inflammatory bowel, hepatitis, peptic ulcer disease, splenic inf arction, perforated viscus, testicular torsion... This is not meant to be an all-inclusive list EKG interpreted by me (3pts min.). yes X-rays interpreted by me (1pt min.). @ -[None done] CT interpreted by me (1pt min.). @ -[None done] U/S interpreted by me (1pt. min.). @ -[None done] What testing was considered but not performed or refused? (CT, X-rays, U/S, labs)? Why? Ct however patient has had multiple imaging studies done already for this same complaint What meds were considered but not given or refused? Why? @ -[None] Did you discuss the management of the patient with other professionals (professionals i.e. , PA, COMMERCIAL ROOFING ESTIMATOR, lab, RT, psych nurse, social media campaign manager, forensic social worker, teacher, cavalry officer, telehealth case manager)? Give summary @ -[No] Was smoking cessation discussed for >3mins.? @ -[No] Was critical care preformed (if so, how long)? @ -[No] Were there social determinants of health that impacted care today? How? (Homelessness, low income, unemployed, alcoholism, drug addiction, transportation, low edu. Level, literacy, decrease access to med. care, detention, rehab)? @ -[No] Was there de-escalation of care discussed even if they declined (Discuss DNR or withdrawal of care, Hospice)? DNR status @ -[No] What co-morbidities impacted this encounter? (DM, HTN, Smoking, COPD, CAD, Cancer, CVA, ARF, Chemo, Hep., AIDS, mental health diagnosis, sleep apnea, morbid obesity)? chronic back pain Was patient admitted / discharged? Hospital course, mention meds given and route, prescriptions, significant lab abnormalities, going to OR and other pertinent info. Upon arrival patient was placed into room 15. There are history and physical exam was performed. IV access is established. Patient given Reglan, Benadryl and IV fluids. Laboratory studies are conducted. He is reevaluated and requesting something stronger for pain control and Toradol. He was given 1 mg of Dilaudid. The patient reevaluated and states that he has had improvement in his pain however requesting an additional dose of pain medications. I informed him of his laboratory findings. Third dose of pain medications administered and patient finally has resolution of his symptoms and feels comfortable going home. He is instructed follow-up with his primary care doctor. Given a short prescription for Reglan. Instructed to take this as directed. Return for any new or worsening symptoms. Patient discharged home in stable condition Undiagnosed new problem with uncertain prognosis? @ -[No] Drug Therapy requiring intensive monitoring for toxicity (Heparin, Nitro, Insulin, Cardizem)? @ -[No] Were any procedures done? @ -[No] Diagnosis/symptom? nausea/vomiting, back pain Acute, or Chronic, or Acute on Chronic? acute on chronic Uncomplicated (without systemic symptoms) or Complicated (systemic symptoms)? complicated Side effects of treatment? akathesia Exacerbation, Progression, or Severe Exacerbation? severe exacerbation Poses a threat to life or bodily function? How? (Chest pain, USA, MS, pneumonia, PE, COPD, DKA, ARF, appy, cholecystitis, CVA, Diverticulitis, Homicidal, Suicidal, threat to staff... and all critical care pts) @ -[No] - Lab Data Result diagrams: 04/22/22 08:30 04/22/22 08:30 Lab Results 04/22/22 04/22/22 04/22/22 Range/Units 08:30 08:30 08:40 WBC 8.7 (3.8-10.6) k/uL RBC 5.33 (4.30-5.90) m/uL Hgb 16.0 (13.0-17.5) gm/dL Hct 46.2 (39.0-53.0) % MCV 86.6 (80.0-100.0) fL MCH 30.0 (25.0-35.0) pg MCHC 34.6 (31.0-37.0) g/dL RDW 12.5 (11.5-15.5) % Plt Count 218 (150-450) k/uL MPV 7.8 Neutrophils % 78 % Lymphocytes % 16 % Monocytes % 4 % Eosinophils % 1 % Basophils % 1 % Neutrophils # 6.8 (1.3-7.7) k/uL Lymphocytes # 1.4 (1.0-4.8) k/uL Monocytes # 0.3 (0-1.0) k/uL Eosinophils # 0.1 (0-0.7) k/uL Basophils # 0.0 (0-0.2) k/uL Sodium 139 (137-145) mmol/L Potassium 4.2 (3.5-5.1) mmol/L Chloride 106 (98-107) mmol/L Carbon Dioxide 25 (22-30) mmol/L Anion Gap 8 mmol/L BUN 12 (9-20) mg/dL Creatinine 0.91 (0.66-1.25) mg/dL Est GFR (CKD-EPI)AfAm >90 (>60 ml/min/1.73 sqM) Est GFR (CKD-EPI)NonAf >90 (>60 ml/min/1.73 sqM) Glucose 107 H (74-99) mg/dL Plasma Lactic Acid Rakesh (0.7-2.0) mmol/L Calcium 9.1 (8.4-10.2) mg/dL Total Bilirubin 0.5 (0.2-1.3) mg/dL AST 29 (17-59) U/L ALT 29 (4-49) U/L Alkaline Phosphatase 96 (38-126) U/L Total Protein 7.6 (6.3-8.2) g/dL Albumin 4.6 (3.5-5.0) g/dL Lipase 105 (23-300) U/L Urine Color Urine Appearance (Clear) Urine pH (5.0-8.0) Ur Specific [place] (1.001-1.035) Urine Protein (Negative) Urine Glucose (UA) (Negative) Urine Ketones (Negative) Urine Blood (Negative) Urine Nitrite (Negative) Urine Bilirubin (Negative) Urine Urobilinogen (<2.0) mg/dL Ur Leukocyte Esterase (Negative) Urine Opiates Screen (NotDetected) Ur Oxycodone Screen (NotDetected) Urine Methadone Screen (NotDetected) Ur Propoxyphene Screen (NotDetected) Ur Barbiturates Screen (NotDetected) U Tricyclic Antidepress (NotDetected) Ur Phencyclidine Scrn (NotDetected) Ur Amphetamines Screen (NotDetected) U Methamphetamines Scrn (NotDetected) U Benzodiazepines Scrn (NotDetected) Urine Cocaine Screen (NotDetected) U Marijuana (THC) Screen (NotDetected) Influenza Type A (PCR) Not Detected (Not Detectd) Influenza Type B (PCR) Not Detected (Not Detectd) RSV (PCR) Not Detected (Not Detectd) SARS-CoV-2 (PCR) Not Detected (Not Detectd) 04/22/22 04/22/22 04/22/22 Range/Units 08:46 10:20 10:20 WBC (3.8-10.6) k/uL RBC (4.30-5.90) m/uL Hgb (13.0-17.5) gm/dL Hct (39.0-53.0) % MCV (80.0-100.0) fL MCH (25.0-35.0) pg MCHC (31.0-37.0) g/dL RDW (11.5-15.5) % Plt Count (150-450) k/uL MPV Neutrophils % % Lymphocytes % % Monocytes % % Eosinophils % % Basophils % % Neutrophils # (1.3-7.7) k/uL Lymphocytes # (1.0-4.8) k/uL Monocytes # (0-1.0) k/uL Eosinophils # (0-0.7) k/uL Basophils # (0-0.2) k/uL Sodium (137-145) mmol/L Potassium (3.5-5.1) mmol/L Chloride (98-107) mmol/L Carbon Dioxide (22-30) mmol/L Anion Gap mmol/L BUN (9-20) mg/dL Creatinine (0.66-1.25) mg/dL Est GFR (CKD-EPI)AfAm (>60 ml/min/1.73 sqM) Est GFR (CKD-EPI)NonAf (>60 ml/min/1.73 sqM) Glucose (74-99) mg/dL Plasma Lactic Acid Rakesh 1.4 (0.7-2.0) mmol/L Calcium (8.4-10.2) mg/dL Total Bilirubin (0.2-1.3) mg/dL AST (17-59) U/L ALT (4-49) U/L Alkaline Phosphatase (38-126) U/L Total Protein (6.3-8.2) g/dL Albumin (3.5-5.0) g/dL Lipase (23-300) U/L Urine Color Yellow Urine Appearance Clear (Clear) Urine pH 7.0 (5.0-8.0) Ur Specific [place] 1.021 (1.001-1.035) Urine Protein Trace H (Negative) Urine Glucose (UA) Negative (Negative) Urine Ketones 1+ H (Negative) Urine Blood Negative (Negative) Urine Nitrite Negative (Negative) Urine Bilirubin Negative (Negative) Urine Urobilinogen <2.0 (<2.0) mg/dL Ur Leukocyte Esterase Negative (Negative) Urine Opiates Screen Detected H (NotDetected) Ur Oxycodone Screen Not Detected (NotDetected) Urine Methadone Screen Not Detected (NotDetected) Ur Propoxyphene Screen Not Detected (NotDetected) Ur Barbiturates Screen Not Detected (NotDetected) U Tricyclic Antidepress Not Detected (NotDetected) Ur Phencyclidine Scrn Not Detected (NotDetected) Ur Amphetamines Screen Not Detected (NotDetected) U Methamphetamines Scrn Not Detected (NotDetected) U Benzodiazepines Scrn Detected H (NotDetected) Urine Cocaine Screen Not Detected (NotDetected) U Marijuana (THC) Screen Detected H (NotDetected) Influenza Type A (PCR) (Not Detectd) Influenza Type B (PCR) (Not Detectd) RSV (PCR) (Not Detectd) SARS-CoV-2 (PCR) (Not Detectd) Disposition Clinical Impression: Back pain, Nausea and vomiting Disposition: HOME SELF-CARE Condition: Stable Instructions (If sedation given, give patient instructions): Acute Nausea and Vomiting (ED) Additional Instructions: Use the Zofran and Reglan as needed for nausea. Follow-up with your doctor in 2-4 days and return for any new or worsening symptoms Prescriptions: Metoclopramide [Reglan] 10 mg PO TID PRN #15 tab PRN Reason: GERD Is patient prescribed a controlled substance at d/c from ED?: No Referrals: Elvis Hoffmann Jr, [Primary Care Provider] - 1-2 days Time of Disposition: 14:26
[2022-04-22 11:30] LABS: Amphetamine Screen,Urine Not Detected (NotDetected); Barbiturate Screen,Urine Not Detected (NotDetected); Benzodiazepines Screen,Urine Detected (NotDetected); Cocaine Screen,Urine Not Detected (NotDetected); Methadone Screen, Urine Not Detected (NotDetected); Opiate Screen,Urine Detected (NotDetected); Oxycodone Screen, Urine Not Detected (NotDetected); Phencyclidine Screen,Urine Not Detected (NotDetected); Tricyclic Antidepressant,Urine Not Detected (NotDetected); Urn Cannabinoid Scrn Detected (NotDetected)
[2022-04-22 13:42] VITALS: RESP 16
[2022-04-22 14:44] VITALS: BP 102/68; PULSE 78
== END 2022-04-22 14:43 | disposition home or self-care (01) ==
LOC: EC 08:03
DX: R11.2 Nausea with vomiting, unspecified (principal); M54.9 Dorsalgia, unspecified; F41.9 Anxiety disorder, unspecified; F32.A Depression, unspecified; F17.200 Nicotine dependence, unspecified, uncomplicated; Z20.822 Contact with and (suspected) exposure to COVID-19
CPT/HCPCS: 36415; 80053; 83605; 83690; 85025; 81003; 80306; 87636; 99284; 96374; 96375 ×4; 96376; 96361; J1200; J2765; J2405; J1170; J1885

== ENCOUNTER 2022-06-26 14:12 | Emergency (ER) | payer MEDICARE, OTHER ==
[2022-06-26 14:19] VITALS: TEMP 97.6
[2022-06-26] MEDS ORDERED: SODIUM CHLORIDE 0.9% 1,000 ML IV STA (15:38)
[2022-06-26] MEDS ORDERED: diphenhydrAMINE 50 MG/ML 1 ML VIAL IVP STA (15:38)
[2022-06-26] MEDS ORDERED: SODIUM CHLORIDE 0.9% 500 ML 500 ML IV STA (15:38)
[2022-06-26] MEDS ORDERED: PANTOPRAZOLE 40 MG/10 ML VIAL IVP STA (15:38)
[2022-06-26] MEDS ORDERED: ONDANSETRON 4 MG/2 ML VIAL IVP STA (15:38)
[2022-06-26] MEDS ORDERED: HYDROmorphone 1 MG/ML 1 ML SYRINGE IVP STA (15:39)
--- NOTE | 2022-06-26 15:39 | ED ---
Nausea/Vomiting/Diarrhea HPI - General Chief complaint: Back Pain/Injury Stated complaint: Back pain/vomiting Time Seen by Provider: 06/26/22 14:36 Source: patient, RN notes reviewed, old records reviewed Mode of arrival: ambulatory Limitations: no limitations - History of Present Illness Initial comments: This is a 62-year-old male to the emergency department for evaluation. Patient coming in from intractable back pain abdominal pain severe nausea vomiting. History of back pain his back pain is worse than his normal back pain is unable to take medications at home. No new traumas no loss of bowel or bladder no injuries. No fevers. Patient states he gets this worsening of symptoms about once a month even possibly sometimes more. This pain was debilitating today and the vomiting is unable to long to take his home medication MD complaint: nausea, vomiting, abdominal pain, other (Acute on chronic back pain) -: hour(s) Description of Vomiting: food contents, watery Associated Abdominal Pain: Yes Location: diffuse Radiation: none Severity: severe Severity scale (1-10): 10 Quality: stabbing Consistency: intermittent Improves with: none Worsens with: none Context: other (History of same) Associated Symptoms: denies other symptoms - Related Data Home Medications Medication Instructions Recorded Confirmed Hydrocodone/Acetaminophen [[place] 1 tab PO QID 09/13/16 04/22/22 10-325] ARIPiprazole [Abilify] 5 mg PO HS 12/10/19 04/22/22 buPROPion XL [Wellbutrin XL] 300 mg PO DAILY 04/22/22 04/22/22 Previous Rx's Medication Instructions Recorded Metoclopramide [Reglan] 10 mg PO TID PRN #15 tab 04/22/22 Metoclopramide [Reglan] 10 mg PO TID PRN #15 tab 05/22/22 predniSONE 50 mg PO DAILY #5 tab 05/22/22 Allergies Allergy/AdvReac Type Severity Reaction Status Date / Time No Known Allergies Allergy Verified 06/04/22 16:28 Review of Systems ROS Statement: Those systems with pertinent positive or pertinent negative responses have been documented in the HPI. ROS Other: All systems not noted in ROS Statement are negative. Past Medical History Past Medical History: Musculoskeletal Disorder Additional Past Medical History / Comment(s): chronic back pain, diverticulitis History of Any Multi-Drug Resistant Organisms: None Reported Past Surgical History: Orthopedic Surgery Additional Past Surgical History / Comment(s): rt knee lt shoulder Past Psychological History: Anxiety, Depression Smoking Status: Current every day smoker Past Alcohol Use History: None Reported Past Drug Use History: Marijuana General Exam Limitations: no limitations General appearance: alert, in no apparent distress Head exam: Present: atraumatic, normocephalic, normal inspection Eye exam: Present: normal appearance, PERRL, EOMI. Absent: scleral icterus, conjunctival injection, periorbital swelling ENT exam: Present: normal exam, mucous membranes moist Neck exam: Present: normal inspection. Absent: tenderness, meningismus, lymphadenopathy Respiratory exam: Present: normal lung sounds bilaterally. Absent: respiratory distress, wheezes, rales, rhonchi, stridor Cardiovascular Exam: Present: regular rate, normal rhythm, normal heart sounds. Absent: systolic murmur, diastolic murmur, rubs, gallop, clicks GI/Abdominal exam: Present: soft, normal bowel sounds. Absent: distended, tenderness, guarding, rebound, rigid Extremities exam: Present: normal inspection, full ROM, normal capillary refill. Absent: tenderness, pedal edema, joint swelling, calf tenderness Back exam: Present: normal inspection Neurological exam: Present: alert, oriented X3, CN II-XII intact Psychiatric exam: Present: normal affect, normal mood Skin exam: Present: warm, dry, intact, normal color. Absent: rash Course Vital Signs 06/26/22 06/26/22 14:17 16:19 Temperature 97.6 F Pulse Rate 61 70 Respiratory 20 18 Rate Blood Pressure 165/85 160/81 O2 Sat by Pulse 99 96 Oximetry - Reevaluation(s) Reevaluation #1: 06/26/22 17:00 Record is reviewed Reevaluation #2: 06/26/22 17:00 patient symptoms are improved Reevaluation #3: 06/26/22 17:00 Patient informed of results and questions answered Reevaluation #4: 06/26/22 17:00 Was pt. sent in by a medical professional or institution? @ -no Did you speak to anyone other than the patient for history? @ -no Did you review nursing and triage notes? @ -agree Were old charts reviewed? @ -prior admissions and ER evaluaions are reviewed Differential Diagnosis? @ -back pain, NV EKG interpreted by me (3pts min.)? @ -no X-rays interpreted by me (1pt min.)? @ -no CT interpreted by me (1pt min.)? @ -no U/S interpreted by me (1pt. min.)? @ -no What testing was considered but not performed? (CT, X-rays, U/S, labs)? Why? @ -no What meds were considered but not given? Why? @ -no patient with no current complaints Did you discuss the management of the patient with other professionals? @ -no Did you reconcile home meds? @ -no Was smoking cessation discussed for >3mins.? @ -no Was critical care preformed (if so, how long)? @ -no Were there social determinants of health that impacted care today? How? (Homelessness, low income, unemployed, alcoholism, drug addiction, transpor tation, low edu. Level, literacy, decrease access to med. care, fdc, rehab)? @ -no Was there de-escalation of care discussed even if they declined? (Discuss DNR or withdrawal of care, Hospice)? @ -no What co-morbidities impacted this encounter? (DM, HTN, Smoking, COPD, CAD, Cancer, CVA, Hep., AIDS, mental health diagnosis, sleep apnea, morbid obesity)? @ -none Was patient admitted / discharged? @ -DC Undiagnosed new problem with uncertain prognosis? @ -chronic pain and NV Drug Therapy requiring intensive monitoring for toxicity (Heparin, Nitro, Insulin, Cardizem)? @ -no Were any procedures done? @ -no Diagnosis/symptom? @ -fall, arm abrasion Acute, or Chronic, or Acute on Chronic? @ -acute Uncomplicated (without systemic symptoms) or Complicated (systemic symptoms)? @ -uncompicated Side effects of treatment? @ -none Exacerbation, Progression, or Severe Exacerbation] @ -no Poses a threat to life or bodily function? @ -no Reevaluation #5: 06/26/ 17:01 Differential Back Pain: Strain, zoster, cauda equina syndrome, epidural abscess, vertebral osteomyelitis, discitis, fracture, subluxation, disc herniation, DJD, spinal stenosis, dissection, AAA, pancreatitis, peptic ulcer disease, pyelonephritis, kidney stone, this is not meant to be an all-inclusive list. Medical Decision Making - Medical Decision Making [age] female to the ER for evaluation of back pain history of back pain persistent back pain presented with back pain with nausea vomiting. Patient symptoms are improved lab values are normally can be discharged home - Lab Data Result diagrams: 06/26/22 15:50 06/26/22 15:50 Lab Results 06/26/22 06/26/22 06/26/22 Range/Units 15:50 15:50 15:50 WBC 6.4 (3.8-10.6) k/uL RBC 5.34 (4.30-5.90) m/uL Hgb 16.1 (13.0-17.5) gm/dL Hct 46.6 (39.0-53.0) % MCV 87.3 (80.0-100.0) fL MCH 30.2 (25.0-35.0) pg MCHC 34.6 (31.0-37.0) g/dL RDW 12.5 (11.5-15.5) % Plt Count 201 (150-450) k/uL MPV 7.7 Neutrophils % 79 % Lymphocytes % 17 % Monocytes % 2 % Eosinophils % 1 % Basophils % 0 % Neutrophils # 5.1 (1.3-7.7) k/uL Lymphocytes # 1.1 (1.0-4.8) k/uL Monocytes # 0.2 (0-1.0) k/uL Eosinophils # 0.0 (0-0.7) k/uL Basophils # 0.0 (0-0.2) k/uL Sodium 138 (137-145) mmol/L Potassium 4.5 (3.5-5.1) mmol/L Chloride 106 (98-107) mmol/L Carbon Dioxide 22 (22-30) mmol/L Anion Gap 10 mmol/L BUN 16 (9-20) mg/dL Creatinine 0.76 (0.66-1.25) mg/dL Est GFR (CKD-EPI)AfAm >90 (>60 ml/min/1.73 sqM) Est GFR (CKD-EPI)NonAf >90 (>60 ml/min/1.73 sqM) Glucose 125 H (74-99) mg/dL Plasma Lactic Acid Rakesh 1.3 (0.7-2.0) mmol/L Calcium 9.2 (8.4-10.2) mg/dL Total Bilirubin 0.8 (0.2-1.3) mg/dL AST 27 (17-59) U/L ALT 26 (4-49) U/L Alkaline Phosphatase 99 (38-126) U/L Total Protein 7.6 (6.3-8.2) g/dL Albumin 4.5 (3.5-5.0) g/dL Amylase 56 (30-110) U/L Lipase 57 (23-300) U/L Disposition Clinical Impression: Acute anxiety, Thoracic back pain, Mid back pain, Nausea & vomiting Disposition: HOME SELF-CARE Condition: Fair Instructions (If sedation given, give patient instructions): Acute Low Back Pain (ED) Is patient prescribed a controlled substance at d/c from ED?: No Referrals: Elivs Hoffmann Jr, [Primary Care Provider] - 1-2 days Time of Disposition: 17:00
[2022-06-26 16:12] LABS: Basophils % (A) 0 %; Eosinophils % (A) 1 %; HCT 46.6 % (39.0-53.0); HGB 16.1 gm/dL (13.0-17.5); Lymphocytes # (A) 1.1 k/uL (1.0-4.8); Lymphocytes % (A) 17 %; MCH 30.2 pg (25.0-35.0); MCHC 34.6 g/dL (31.0-37.0); MCV 87.3 fL (80.0-100.0); Mean Platelet Volume 7.7; Monocytes # (A) 0.2 k/uL (0-1.0); Monocytes % (A) 2 %; Neutrophils # (A) 5.1 k/uL (1.3-7.7); Neutrophils % (A) 79 %; Platelet Count 201 k/uL (150-450); RBC 5.34 m/uL (4.30-5.90); RDW 12.5 % (11.5-15.5); WBC 6.4 k/uL (3.8-10.6)
[2022-06-26 16:26] LABS: ALT 26 U/L (4-49); AST 27 U/L (17-59); African American GFR (CKD) >90 (>60 ml/min/1.73 sqM); Albumin 4.5 g/dL (3.5-5.0); Alkaline Phosphatase 99 U/L (38-126); Amylase 56 U/L (30-110); Anion Gap 10 mmol/L; Blood Urea Nitrogen 16 mg/dL (9-20); Calcium 9.2 mg/dL (8.4-10.2); Carbon Dioxide 22 mmol/L (22-30); Chloride 106 mmol/L (98-107); Glucose 125 mg/dL (74-99); Lipase 57 U/L (23-300); Non-African American GFR(CKD) >90 (>60 ml/min/1.73 sqM); Sodium 138 mmol/L (137-145); Total Bilirubin 0.8 mg/dL (0.2-1.3); Total Protein 7.6 g/dL (6.3-8.2)
[2022-06-26 16:34] LABS: Potassium 4.5 mmol/L (3.5-5.1)
[2022-06-26 16:50] VITALS: RESP 18
[2022-06-26 17:18] VITALS: BP 155/70; PULSE 74
[2022-06-26] MEDS ORDERED: ONDANSETRON 4 MG ODT STARTER PACK 2 TAB BTL PO STA (17:28)
[2022-06-26] MEDS ORDERED: HYDROmorphone 0.5 MG/0.5 ML SYRINGE IVP STA (17:28)
== END 2022-06-26 17:36 | disposition home or self-care (01) ==
LOC: EC 14:12
DX: F41.9 Anxiety disorder, unspecified (principal); M54.6 Pain in thoracic spine; R11.2 Nausea with vomiting, unspecified; F32.A Depression, unspecified; F17.200 Nicotine dependence, unspecified, uncomplicated; F12.90 Cannabis use, unspecified, uncomplicated
CPT/HCPCS: 36415; 80053; 82150; 83605; 83690; 85025; 99284; 96374; 96375 ×3; 96376; 96361; J1200; J2405; J1170 ×2; S0119; C9113

== ENCOUNTER 2022-06-28 09:19 | Emergency (ER) | payer MEDICARE, OTHER ==
[2022-06-28 09:37] VITALS: TEMP 98.2
[2022-06-28] MEDS ORDERED: HYDROmorphone 0.5 MG/0.5 ML SYRINGE IVP STA (09:48)
[2022-06-28] MEDS ORDERED: SODIUM CHLORIDE 0.9% 1,000 ML IV STA (09:48)
[2022-06-28] MEDS ORDERED: METOCLOPRAMIDE 5 MG/ML 2 ML VIAL IVP STA (09:48)
[2022-06-28] MEDS ORDERED: KETOROLAC 15 MG/ML 1 ML VIAL IVP STA (09:48)
--- NOTE | 2022-06-28 10:27 | ED ---
Nausea/Vomiting/Diarrhea HPI - General Chief complaint: Nausea/Vomiting/Diarrhea Stated complaint: Back pain Time Seen by Provider: 06/28/22 09:46 Source: patient, RN notes reviewed Mode of arrival: ambulatory Limitations: no limitations - History of Present Illness Initial comments: This is a 62-year-old male who presents to the emergency department for nausea, vomiting, and back pain. Patient was evaluated here 2 days ago for the same symptoms. Symptoms improved the emergency department and he was discharged home. States that since discharge, he continues to have dry heaves. He was discharged with a Zofran starter pack, which he states has not been effective. He also continues to have increasing lower back pain, which he states is worse than normal. Denies any bowel/bladder control or saddle anesthesia. He takes hydrocodone for his back pain, which he states has not been very effective over the last couple of days. Denies any associated abdominal pain. Denies any fevers, chills, sore throat, cough, dyspnea, chest pain, palpitations, diarrhea, or headaches. MD complaint: nausea, vomiting - Related Data Home Medications Medication Instructions Recorded Confirmed Hydrocodone/Acetaminophen [[place] 1 tab PO QID 09/13/16 04/22/22 10-325] ARIPiprazole [Abilify] 5 mg PO HS 12/10/19 04/22/22 buPROPion XL [Wellbutrin XL] 300 mg PO DAILY 04/22/22 04/22/22 Previous Rx's Medication Instructions Recorded Metoclopramide [Reglan] 10 mg PO TID PRN #15 tab 04/22/22 Metoclopramide [Reglan] 10 mg PO TID PRN #15 tab 05/22/22 predniSONE 50 mg PO DAILY #5 tab 05/22/22 Metoclopramide [Reglan] 10 mg PO Q6H PRN #15 tab 06/28/22 Ondansetron [Zofran] 4 mg PO Q8HR PRN #15 tab 06/28/22 predniSONE 50 mg PO DAILY 5 Days #5 tablet 06/28/22 Allergies Allergy/AdvReac Type Severity Reaction Status Date / Time No Known Allergies Allergy Verified 06/28/22 09:36 Review of Systems ROS Statement: Those systems with pertinent positive or pertinent negative responses have been documented in the HPI. ROS Other: All systems not noted in ROS Statement are negative. Past Medical History Past Medical History: Musculoskeletal Disorder Additional Past Medical History / Comment(s): chronic back pain, diverticulitis History of Any Multi-Drug Resistant Organisms: None Reported Past Surgical History: Orthopedic Surgery Additional Past Surgical History / Comment(s): rt knee lt shoulder Past Psychological History: Anxiety, Depression Smoking Status: Current every day smoker Past Alcohol Use History: None Reported Past Drug Use History: Marijuana General Exam Limitations: no limitations General appearance: alert, in no apparent distress Head exam: Present: atraumatic, normocephalic, normal inspection Respiratory exam: Present: normal lung sounds bilaterally. Absent: respiratory distress, wheezes, rales, rhonchi, stridor Cardiovascular Exam: Present: regular rate, normal rhythm, normal heart sounds. Absent: systolic murmur, diastolic murmur, rubs, gallop, clicks GI/Abdominal exam: Present: soft, normal bowel sounds. Absent: distended, tenderness, guarding, rebound, rigid Back exam: Present: normal inspection. Absent: tenderness Neurological exam: Present: alert, oriented X3, CN II-XII intact Psychiatric exam: Present: normal affect, normal mood Skin exam: Present: warm, dry, intact, normal color. Absent: rash Course Vital Signs 06/28/22 06/28/22 09:34 12:26 Temperature 98.2 F Pulse Rate 55 L 68 Respiratory 20 18 Rate Blood Pressure 160/89 108/65 O2 Sat by Pulse 99 95 Oximetry Medical Decision Making - Medical Decision Making This is a 62-year-old male who presents to the emergency department for nausea, vomiting, and back pain. Was pt. sent in by a medical professional or institution? @ -No Did you speak to anyone other than the patient for history? @ -No Did you review nursing and triage notes? @ -Yes, and I agree, it is accurate with regards to the patient's symptoms. Were old charts reviewed? @ -No Differential Diagnosis? @ -Differential Nausea and Vomiting: Gastroenteritis, cholecystitis, appendicitis, pancreatitis, migraine, benign positional vertigo, food borne illness, pyelonephritis, irritable bowel syndrome, influenza, Covid, GERD, incarcerated hernia, intestinal obstruction, this is not meant to be an all-inclusive list. -Differential Back Pain: Strain, zoster, cauda equina syndrome, epidural abscess, vertebral osteomyelitis, discitis, fracture, subluxation, disc herniation, DJD, spinal stenosis, dissection, AAA, pancreatitis, peptic ulcer disease, pyelonephritis, kidney stone, this is not meant to be an all-inclusive list. X-rays interpreted by me (1pt min.)? @ -X-ray of the lumbar spine obtained. My interpretation identifies no acute fractures. There are degenerative changes throughout. What testing was considered but not performed? (CT, X-rays, U/S, labs)? Why? @ -None What meds were considered but not given? Why? @ -None Did you discuss the management of the patient with other professionals? @ -No Did you reconcile home meds? @ -No Was smoking cessation discussed for >3mins.? @ -No Was critical care preformed (if so, how long)? @ -No Were there social determinants of health that impacted care today? How? (Homelessness, low income, unemployed, alcoholism, drug addiction, transportation, low edu. Level, literacy, decrease access to med. care, penitentiary, rehab)? @ -No Was there de-escalation of care discussed even if they declined? (Discuss DNR or withdrawal of care, Hospice)? @ -No What co-morbidities impacted this encounter? (DM, HTN, Smoking, COPD, CAD, Cancer, CVA, Hep., AIDS, mental health diagnosis, sleep apnea, morbid obesity)? @ -Chronic back pain Was patient admitted / discharged? @ -Discharged. X-ray of the lumbar spine obtained revealing no acute findings. Lab work obtained revealing minor leukocytosis and was otherwise nonactionable. Patient's symptoms were well controlled in the emergency department. He was given IV fluids and Reglan, which he states worked better than the Zofran did. He was able to drink water prior to discharge. Overall felt significantly improved and requested discharge home. Prescriptions for prednisone, Reglan, and Zofran provided with dosing instructions reviewed. Prednisone prescribed for exacerbation of his chronic back pain, which he states works well. Patient is already being treated with hydrocodone. He is advised to slowly advance his diet as tolerated and remain well-hydrated. He will ot herwise follow up with his primary care provider for reevaluation of symptoms. Undiagnosed new problem with uncertain prognosis? @ -None Drug Therapy requiring intensive monitoring for toxicity (Heparin, Nitro, Insulin, Cardizem)? @ -None Were any procedures done? @ -None Diagnosis/symptom? @ -Gastroenteritis Acute, or Chronic, or Acute on Chronic? @ -Acute Uncomplicated (without systemic symptoms) or Complicated (systemic symptoms)? @ -Uncomplicated Side effects of treatment? @ -None Exacerbation, Progression, or Severe Exacerbation] @ -Not applicable Poses a threat to life or bodily function? @ -No Diagnosis/symptom? @ -Chronic back pain Acute, or Chronic, or Acute on Chronic? @ -Acute on chronic Uncomplicated (without systemic symptoms) or Complicated (systemic symptoms)? @ -Uncomplicated Side effects of treatment? @ -None Exacerbation, Progression, or Severe Exacerbation] @ -Exacerbation Poses a threat to life or bodily function? @ -No Return precautions reviewed in depth, the patient is instructed to return to the emergency department with any new, worsening, or concerning symptoms. Patient verbalized understanding. This case was discussed in detail with the attending ED physician, Dr. Vásquez. Presentation, findings, and treatment plan discussed in detail as well. - Lab Data Result diagrams: 06/28/22 10:06 06/28/22 10:06 Lab Results 06/28/22 06/28/22 06/28/22 Range/Units 10:06 10:06 10:06 WBC 11.6 H (3.8-10.6) k/uL RBC 5.20 (4.30-5.90) m/uL Hgb 15.8 (13.0-17.5) gm/dL Hct 44.6 (39.0-53.0) % MCV 85.7 (80.0-100.0) fL MCH 30.5 (25.0-35.0) pg MCHC 35.5 (31.0-37.0) g/dL RDW 12.9 (11.5-15.5) % Plt Count 209 (150-450) k/uL MPV 7.8 Neutrophils % 81 % Lymphocytes % 14 % Monocytes % 3 % Eosinophils % 0 % Basophils % 0 % Neutrophils # 9.4 H (1.3-7.7) k/uL Lymphocytes # 1.6 (1.0-4.8) k/uL Monocytes # 0.4 (0-1.0) k/uL Eosinophils # 0.1 (0-0.7) k/uL Basophils # 0.0 (0-0.2) k/uL Sodium 139 (137-145) mmol/L Potassium 3.9 (3.5-5.1) mmol/L Chloride 107 (98-107) mmol/L Carbon Dioxide 23 (22-30) mmol/L Anion Gap 9 mmol/L BUN 15 (9-20) mg/dL Creatinine 0.86 (0.66-1.25) mg/dL Est GFR (CKD-EPI)AfAm >90 (>60 ml/min/1.73 sqM) Est GFR (CKD-EPI)NonAf >90 (>60 ml/min/1.73 sqM) Glucose 115 H (74-99) mg/dL Plasma Lactic Acid Rakesh (0.7-2.0) mmol/L Calcium 9.1 (8.4-10.2) mg/dL Total Bilirubin 0.8 (0.2-1.3) mg/dL AST 26 (17-59) U/L ALT 28 (4-49) U/L Alkaline Phosphatase 83 (38-126) U/L Total Protein 7.2 (6.3-8.2) g/dL Albumin 4.3 (3.5-5.0) g/dL Urine Color Yellow Urine Appearance Clear (Clear) Urine pH 5.5 (5.0-8.0) Ur Specific [place] 1.028 (1.001-1.035) Urine Protein Trace H (Negative) Urine Glucose (UA) Negative (Negative) Urine Ketones 1+ H (Negative) Urine Blood Negative (Negative) Urine Nitrite Negative (Negative) Urine Bilirubin Negative (Negative) Urine Urobilinogen 2.0 (<2.0) mg/dL Ur Leukocyte Esterase Negative (Negative) Urine Opiates Screen Detected H (NotDetected) Ur Oxycodone Screen Not Detected (NotDetected) Urine Methadone Screen Not Detected (NotDetected) Ur Propoxyphene Screen Not Detected (NotDetected) Ur Barbiturates Screen Not Detected (NotDetected) U Tricyclic Antidepress Not Detected (NotDetected) Ur Phencyclidine Scrn Not Detected (NotDetected) Ur Amphetamines Screen Not Detected (NotDetected) U Methamphetamines Scrn Not Detected (NotDetected) U Benzodiazepines Scrn Detected H (NotDetected) Urine Cocaine Screen Not Detected (NotDetected) U Marijuana (THC) Screen Detected H (NotDetected) 06/28/22 Range/Units 10:06 WBC (3.8-10.6) k/uL RBC (4.30-5.90) m/uL Hgb (13.0-17.5) gm/dL Hct (39.0-53.0) % MCV (80.0-100.0) fL MCH (25.0-35.0) pg MCHC (31.0-37.0) g/dL RDW (11.5-15.5) % Plt Count (150-450) k/uL MPV Neutrophils % % Lymphocytes % % Monocytes % % Eosinophils % % Basophils % % Neutrophils # (1.3-7.7) k/uL Lymphocytes # (1.0-4.8) k/uL Monocytes # (0-1.0) k/uL Eosinophils # (0-0.7) k/uL Basophils # (0-0.2) k/uL Sodium (137-145) mmol/L Potassium (3.5-5.1) mmol/L Chloride (98-107) mmol/L Carbon Dioxide (22-30) mmol/L Anion Gap mmol/L BUN (9-20) mg/dL Creatinine (0.66-1.25) mg/dL Est GFR (CKD-EPI)AfAm (>60 ml/min/1.73 sqM) Est GFR (CKD-EPI)NonAf (>60 ml/min/1.73 sqM) Glucose (74-99) mg/dL Plasma Lactic Acid Rakesh 1.5 (0.7-2.0) mmol/L Calcium (8.4-10.2) mg/dL Total Bilirubin (0.2-1.3) mg/dL AST (17-59) U/L ALT (4-49) U/L Alkaline Phosphatase (38-126) U/L Total Protein (6.3-8.2) g/dL Albumin (3.5-5.0) g/dL Urine Color Urine Appearance (Clear) Urine pH (5.0-8.0) Ur Specific [place] (1.001-1.035) Urine Protein (Negative) Urine Glucose (UA) (Negative) Urine Ketones (Negative) Urine Blood (Negative) Urine Nitrite (Negative) Urine Bilirubin (Negative) Urine Urobilinogen (<2.0) mg/dL Ur Leukocyte Esterase (Negative) Urine Opiates Screen (NotDetected) Ur Oxycodone Screen (NotDetected) Urine Methadone Screen (NotDetected) Ur Propoxyphene Screen (NotDetected) Ur Barbiturates Screen (NotDetected) U Tricyclic Antidepress (NotDetected) Ur Phencyclidine Scrn (NotDetected) Ur Amphetamines Screen (NotDetected) U Methamphetamines Scrn (NotDetected) U Benzodiazepines Scrn (NotDetected) Urine Cocaine Screen (NotDetected) U Marijuana (THC) Screen (NotDetected) - Radiology Data Radiology results: report reviewed, image reviewed Disposition Clinical Impression: Gastroenteritis, Chronic back pain Disposition: HOME SELF-CARE Instructions (If sedation given, give patient instructions): Gastroenteritis (ED) Additional Instructions: Return to the emergency department with any new, worsening, or concerning symptoms. Take the prednisone daily for 5 days. You can alternate with Zofran and Reglan if needed for nausea and vomiting. You can also use [id number] lidocaine patches for the back. Slowly advance your diet as tolerated and remain well-hydrated. Follow up with your primary care provider in 1-2 days. Prescriptions: predniSONE 50 mg PO DAILY 5 Days #5 tablet Metoclopramide [Reglan] 10 mg PO Q6H PRN #15 tab PRN Reason: Nausea And Vomiting Ondansetron [Zofran] 4 mg PO Q8HR PRN #15 tab PRN Reason: Nausea And Vomiting Is patient prescribed a controlled substance at d/c from ED?: No Referrals: Elvis Hoffmann Jr, [Primary Care Provider] - 1-2 days
[2022-06-28 10:32] LABS: Basophils % (A) 0 %; Eosinophils # (A) 0.1 k/uL (0-0.7); Eosinophils % (A) 0 %; HCT 44.6 % (39.0-53.0); HGB 15.8 gm/dL (13.0-17.5); Lymphocytes # (A) 1.6 k/uL (1.0-4.8); Lymphocytes % (A) 14 %; MCH 30.5 pg (25.0-35.0); MCHC 35.5 g/dL (31.0-37.0); MCV 85.7 fL (80.0-100.0); Mean Platelet Volume 7.8; Monocytes # (A) 0.4 k/uL (0-1.0); Monocytes % (A) 3 %; Neutrophils # (A) 9.4 k/uL (1.3-7.7); Neutrophils % (A) 81 %; Platelet Count 209 k/uL (150-450); RDW 12.9 % (11.5-15.5); WBC 11.6 k/uL (3.8-10.6)
[2022-06-28 10:34] LABS: ALT 28 U/L (4-49); AST 26 U/L (17-59); African American GFR (CKD) >90 (>60 ml/min/1.73 sqM); Albumin 4.3 g/dL (3.5-5.0); Alkaline Phosphatase 83 U/L (38-126); Anion Gap 9 mmol/L; Blood Urea Nitrogen 15 mg/dL (9-20); Calcium 9.1 mg/dL (8.4-10.2); Carbon Dioxide 23 mmol/L (22-30); Chloride 107 mmol/L (98-107); Glucose 115 mg/dL (74-99); Non-African American GFR(CKD) >90 (>60 ml/min/1.73 sqM); Potassium 3.9 mmol/L (3.5-5.1); Sodium 139 mmol/L (137-145); Total Bilirubin 0.8 mg/dL (0.2-1.3); Total Protein 7.2 g/dL (6.3-8.2)
[2022-06-28 10:52] LABS: Appearance,Urine Clear (Clear); Bilirubin,Urine Negative (Negative); Blood,Urine Negative (Negative); Color,Urine Yellow; Glucose,Urine (UA) Negative (Negative); Ketones,Urine 1+ (Negative); Leukocyte Esterase,Urine Negative (Negative); Nitrite,Urine Negative (Negative); PH, Urine 5.5 (5.0-8.0); Protein,Urine Trace (Negative); Specific Gravity,Urine 1.028 (1.001-1.035)
[2022-06-28 11:11] LABS: Amphetamine Screen,Urine Not Detected (NotDetected); Benzodiazepines Screen,Urine Detected (NotDetected); Cocaine Screen,Urine Not Detected (NotDetected); Opiate Screen,Urine Detected (NotDetected); Phencyclidine Screen,Urine Not Detected (NotDetected); Tricyclic Antidepressant,Urine Not Detected (NotDetected); Urn Cannabinoid Scrn Detected (NotDetected)
[2022-06-28 11:12] LABS: Barbiturate Screen,Urine Not Detected (NotDetected); Methadone Screen, Urine Not Detected (NotDetected); Oxycodone Screen, Urine Not Detected (NotDetected)
[2022-06-28] MEDS ORDERED: HYDROmorphone 1 MG/ML 1 ML SYRINGE IVP STA ×2 (11:15→12:14)
--- NOTE | 2022-06-28 11:51 | XR ---
EXAMINATION TYPE: XR lumbar spine 2 or 3V DATE OF EXAM: 06/28/2022 Comparison: 10/21/2020 Clinical History: 62-year-old male Pain Findings: 5 lumbar type vertebral bodies. Moderate degenerative disc disease mid to lower lumbar spine with dis c space narrowing and endplate spondylosis and disc vacuum. Facet arthropathy mid to lower lumbar spi ne. Degenerative grade 1 retrolisthesis L2-L3 and L3-L4. Vertebral body heights are preserved. Impression: 1. Moderate degenerative disc disease mid to lower lumbar spine. 2. Facet arthropathy mid to lower lumbar spine. 3. Degenerative grade 1 retrolisthesis L2-L3 and L3-L4 similar to slightly increased from prior.
[2022-06-28 12:27] VITALS: BP 108/65; PULSE 68; RESP 18
== END 2022-06-28 12:27 | disposition home or self-care (01) ==
LOC: EC 09:19
DX: K52.9 Noninfective gastroenteritis and colitis, unspecified (principal); G89.29 Other chronic pain; M54.50 Low back pain, unspecified; F32.A Depression, unspecified; F41.9 Anxiety disorder, unspecified; F12.90 Cannabis use, unspecified, uncomplicated; F17.200 Nicotine dependence, unspecified, uncomplicated; Z79.891 Long term (current) use of opiate analgesic
CPT/HCPCS: 36415; 80053; 83605; 85025; 81003; 80306; 72100; 99284; 96374; 96375 ×2; 96376 ×2; 96361; J2765; J1170 ×2; J1885

== ENCOUNTER 2022-07-03 09:41 | Emergency (ER) | payer MEDICARE, OTHER ==
[2022-07-03] MEDS ORDERED: ONDANSETRON 4 MG/2 ML VIAL IVP STA (09:56)
[2022-07-03] MEDS ORDERED: KETOROLAC 15 MG/ML 1 ML VIAL IVP STA (09:56)
[2022-07-03] MEDS ORDERED: LORazepam 2 MG/ML INJ IV STA (09:56)
[2022-07-03] MEDS ORDERED: SODIUM CHLORIDE 0.9% 1,000 ML IV ONE (09:57)
[2022-07-03 10:30] LABS: Basophils # (A) 0.1 k/uL (0-0.2); Basophils % (A) 1 %; Eosinophils # (A) 0.1 k/uL (0-0.7); Eosinophils % (A) 2 %; HCT 46.2 % (39.0-53.0); HGB 15.9 gm/dL (13.0-17.5); Lymphocytes # (A) 1.1 k/uL (1.0-4.8); Lymphocytes % (A) 15 %; MCH 30.1 pg (25.0-35.0); MCHC 34.4 g/dL (31.0-37.0); MCV 87.6 fL (80.0-100.0); Mean Platelet Volume 7.4; Monocytes # (A) 0.2 k/uL (0-1.0); Monocytes % (A) 3 %; Neutrophils # (A) 5.7 k/uL (1.3-7.7); Neutrophils % (A) 78 %; Platelet Count 233 k/uL (150-450); RBC 5.28 m/uL (4.30-5.90); RDW 12.9 % (11.5-15.5); WBC 7.2 k/uL (3.8-10.6)
[2022-07-03 10:57] LABS: ALT 27 U/L (4-49); AST 25 U/L (17-59); African American GFR (CKD) >90 (>60 ml/min/1.73 sqM); Albumin 4.6 g/dL (3.5-5.0); Alkaline Phosphatase 96 U/L (38-126); Anion Gap 11 mmol/L; Blood Urea Nitrogen 13 mg/dL (9-20); Calcium 9.3 mg/dL (8.4-10.2); Carbon Dioxide 23 mmol/L (22-30); Chloride 105 mmol/L (98-107); Glucose 119 mg/dL (74-99); Non-African American GFR(CKD) >90 (>60 ml/min/1.73 sqM); Potassium 4.2 mmol/L (3.5-5.1); Sodium 139 mmol/L (137-145); Total Bilirubin 0.6 mg/dL (0.2-1.3); Total Protein 7.6 g/dL (6.3-8.2)
[2022-07-03 11:04] LABS: Appearance,Urine Clear (Clear); Bilirubin,Urine Negative (Negative); Blood,Urine Negative (Negative); Color,Urine Yellow; Glucose,Urine (UA) Negative (Negative); Ketones,Urine 2+ (Negative); Leukocyte Esterase,Urine Negative (Negative); Nitrite,Urine Negative (Negative); PH, Urine 5.5 (5.0-8.0); Protein,Urine Negative (Negative); Specific Gravity,Urine 1.013 (1.001-1.035); Urobilinogen,Urine <2.0 mg/dL (<2.0)
--- NOTE | 2022-07-03 11:18 | ED ---
General Adult HPI - General Chief complaint: Back Pain/Injury Stated complaint: Vomiting Time Seen by Provider: 07/03/22 09:45 Source: patient, RN notes reviewed, old records reviewed Mode of arrival: ambulatory Limitations: no limitations - History of Present Illness Initial comments: This is a 62-year-old male presents emergency Department complaining of chronic back pain. Patient states he hasn't had any of his narcotics in a week and so the pain is bad. Patient states he's been vomiting as well which is a lot of the time associated with back pain. Patient states he has a hernia that he supposedly fixed but it is still reproducible at this time. Patient denies any fever chills per patient denies any abdominal pain. Patient denies any numbness weakness. Patient states it's the same back pain he has been having. - Related Data Home Medications Medication Instructions Recorded Confirmed Hydrocodone/Acetaminophen [[place] 1 tab PO QID 09/13/16 04/22/22 10-325] ARIPiprazole [Abilify] 5 mg PO HS 12/10/19 04/22/22 buPROPion XL [Wellbutrin XL] 300 mg PO DAILY 04/22/22 04/22/22 Previous Rx's Medication Instructions Recorded Metoclopramide [Reglan] 10 mg PO TID PRN #15 tab 04/22/22 Metoclopramide [Reglan] 10 mg PO TID PRN #15 tab 05/22/22 predniSONE 50 mg PO DAILY #5 tab 05/22/22 Metoclopramide [Reglan] 10 mg PO Q6H PRN #15 tab 06/28/22 Ondansetron [Zofran] 4 mg PO Q8HR PRN #15 tab 06/28/22 predniSONE 50 mg PO DAILY 5 Days #5 tablet 06/28/22 Allergies Allergy/AdvReac Type Severity Reaction Status Date / Time No Known Allergies Allergy Verified 07/03/22 09:45 Review of Systems ROS Statement: Those systems with pertinent positive or pertinent negative responses have been documented in the HPI. ROS Other: All systems not noted in ROS Statement are negative. Past Medical History Past Medical History: Musculoskeletal Disorder Additional Past Medical History / Comment(s): chronic back pain, diverticulitis History of Any Multi-Drug Resistant Organisms: None Reported Past Surgical History: Orthopedic Surgery Additional Past Surgical History / Comment(s): rt knee lt shoulder Past Psychological History: Anxiety, Depression Smoking Status: Current every day smoker Past Alcohol Use History: None Reported Past Drug Use History: Marijuana General Exam - General Exam Comments Initial Comments: GENERAL: Patient is well-developed and well-nourished. Patient is nontoxic and well- hydrated and is in mild distress. ENT: Neck is soft and supple. No significant lymphadenopathy is noted. Oropharynx is clear. Moist mucous membranes. Neck has full range of motion without eliciting any pain. EYES: The sclera were anicteric and conjunctiva were pink and moist. Extraocular movements were intact and pupils were equal round and reactive to light. Eyelids were unremarkable. PULMONARY: Unlabored respirations. Good breath sounds bilaterally. No audible rales rhonchi or wheezing was noted. CARDIOVASCULAR: There is a regular rate and rhythm without any murmurs gallops or rubs. ABDOMEN: Soft and nontender with normal bowel sounds. SKIN: Skin is clear with no lesions or rashes and otherwise unremarkable. NEUROLOGIC: Patient is alert and oriented x3. Cranial nerves II through XII are grossly intact. Motor and sensory are also intact. Normal speech, volume and content. Symmetrical smile. Straight leg test is negative bilaterally MUSCULOSKELETAL: Normal extremities with adequate strength and full range of motion. LYMPHATICS: No significant lymphadenopathy is noted PSYCHIATRIC: Normal psychiatric evaluation. Limitations: no limitations Course Vital Signs 07/03/22 07/03/22 09:43 11:01 Temperature 98.2 F Pulse Rate 50 L 67 Respiratory 20 20 Rate Blood Pressure 162/82 135/71 O2 Sat by Pulse 100 97 Oximetry Medical Decision Making - Medical Decision Making Was pt. sent in by a medical professional or institution (, PA, BUSINESS PROCESS EXPERT, urgent care, hospital, or fci...) When possible be specific @ -No Did you speak to anyone other than the patient for history (EMS, parent, family, police, friend...)? What history was obtained from this source @ -No Did you review nursing and triage notes (agree or disagree)? Why? @ -I reviewed and agree with nursing and triage notes Were old charts reviewed (outside hosp., previous admission, EMS record, old EKG, old radiological studies, urgent care reports/EKG's, fci records)? Report findings @ -I reviewed prior charts prior lab work and prior radiological studies Differential Diagnosis (chest pain, altered mental status, abdominal pain women, abdominal pain men, vaginal bleeding, weakness, fever, dyspnea, syncope, headache, dizziness, GI bleed, back pain, seizure, CVA, palpatations, mental health, musculoskeletal)? @ -Differential Musculoskeletal Muscular strain, contusion, ligament sprain, fracture, arthritis, septic arthritis, bursitis, cellulitis, muscle spasm, nerve compression, DVT, arterial occlusion, herpes zoster, electrolyte abnormality, tumor.... This is not meant to be in all inclusive list EKG interpreted by me (3pts min.). @ -As above X-rays interpreted by me (1pt min.). @ -None done CT interpreted by me (1pt min.). @ -None done U/S interpreted by me (1pt. min.). @ -None done What testing was considered but not performed or refused? (CT, X-rays, U/S, labs)? Why? @ -None What meds were considered but not given or refused? Why? @ -None Did you discuss the management of the patient with other professionals (tran baker i.e. , PA, BUSINESS PROCESS EXPERT, lab, RT, psych nurse, medical social worker, paper cone drying machine operator, teacher, credit risk officer, manager rn case)? Give summary @ -I spoke with Dr. paris on 2 occasions Was smoking cessation discussed for >3mins.? @ -No Was critical care preformed (if so, how long)? @ -No Were there social determinants of health that impacted care today? How? (Homelessness, low income, unemployed, alcoholism, drug addiction, transportation, low edu. Level, literacy, decrease access to med. care, custodial, rehab)? @ -No Was there de-escalation of care discussed even if they declined (Discuss DNR or withdrawal of care, Hospice)? DNR status @ -No What co-morbidities impacted this encounter? (DM, HTN, Smoking, COPD, CAD, Cancer, CVA, ARF, Chemo, Hep., AIDS, mental health diagnosis, sleep apnea, morbid obesity)? @ -None Was patient admitted / discharged? Hospital course, mention meds given and route, prescriptions, significant lab abnormalities, going to OR and other pertinent info. @ -Patient came in complaining of chronic back pain and states pain is worse because his been off his narcotics for a week. Patient also was vomiting and he states this always happens when he has been back pain. I spoke with Dr. paris and we figured out that the patient was supposed minute for an appointment to get her another narcotic prescription but he did not make an appointment and so his appointment is not till the 14th of the month. Patient is out of narcotics at this time. Undiagnosed new problem with uncertain prognosis? @ -No Drug Therapy requiring intensive monitoring for toxicity (Heparin, Nitro, Insulin, Cardizem)? @ -No Were any procedures done? @ -No Diagnosis/symptom? @ -Chronic back pain Acute, or Chronic, or Acute on Chronic? @ -Chronic Uncomplicated (without systemic symptoms) or Complicated (systemic symptoms)? @ -Uncomplicated Side effects of treatment? @ -No Exacerbation, Progression, or Severe Exacerbation? @ -No Poses a threat to life or bodily function? How? (Chest pain, [place], [place], pneumonia, PE, COPD, DKA, ARF, appy, cholecystitis, CVA, Diverticulitis, Homicidal, Suicidal, threat to staff... and all critical care pts) @ -No Diagnosis/symptom? @ -Narcotic dependence Acute, or Chronic, or Acute on Chronic? @ -Acute Uncomplicated (without systemic symptoms) or Complicated (systemic symptoms)? @ -Uncomplicated Side effects of treatment? @ -none Exacerbation, Progression, or Severe Exacerbation] @ -no Poses a threat to life or bodily function? @ -no - Lab Data Result diagrams: 07/03/22 10:15 07/03/22 10:15 Lab Results 07/03/22 07/03/22 Range/Units 10:15 10:15 WBC 7.2 (3.8-10.6) k/uL RBC 5.28 (4.30-5.90) m/uL Hgb 15.9 (13.0-17.5) gm/dL Hct 46.2 (39.0-53.0) % MCV 87.6 (80.0-100.0) fL MCH 30.1 (25.0-35.0) pg MCHC 34.4 (31.0-37.0) g/dL RDW 12.9 (11.5-15.5) % Plt Count 233 (150-450) k/uL MPV 7.4 Neutrophils % 78 % Lymphocytes % 15 % Monocytes % 3 % Eosinophils % 2 % Basophils % 1 % Neutrophils # 5.7 (1.3-7.7) k/uL Lymphocytes # 1.1 (1.0-4.8) k/uL Monocytes # 0.2 (0-1.0) k/uL Eosinophils # 0.1 (0-0.7) k/uL Basophils # 0.1 (0-0.2) k/uL Sodium 139 (137-145) mmol/L Potassium 4.2 (3.5-5.1) mmol/L Chloride 105 (98-107) mmol/L Carbon Dioxide 23 (22-30) mmol/L Anion Gap 11 mmol/L BUN 13 (9-20) mg/dL Creatinine 0.84 (0.66-1.25) mg/dL Est GFR (CKD-EPI)AfAm >90 (>60 ml/min/1.73 sqM) Est GFR (CKD-EPI)NonAf >90 (>60 ml/min/1.73 sqM) Glucose 119 H (74-99) mg/dL Calcium 9.3 (8.4-10.2) mg/dL Total Bilirubin 0.6 (0.2-1.3) mg/dL AST 25 (17-59) U/L ALT 27 (4-49) U/L Alkaline Phosphatase 96 (38-126) U/L Total Protein 7.6 (6.3-8.2) g/dL Albumin 4.6 (3.5-5.0) g/dL Disposition Clinical Impression: Chronic back pain Disposition: HOME SELF-CARE Instructions (If sedation given, give patient instructions): Chronic Back Pain (DC) Is patient prescribed a controlled substance at d/c from ED?: No Referrals: None,Stated [Primary Care Provider] - 1-2 days Time of Disposition: 11:21
[2022-07-03] MEDS ORDERED: ONDANSETRON 4 MG ODT STARTER PACK 2 TAB BTL PO STA (11:22)
[2022-07-03] MEDS ORDERED: HYDROmorphone 0.5 MG/0.5 ML SYRINGE IVP STA (11:40)
[2022-07-03 11:50] VITALS: BP 132/87; PULSE 77; RESP 18; TEMP 98.3
== END 2022-07-03 11:49 | disposition home or self-care (01) ==
LOC: EC 09:41
DX: G89.29 Other chronic pain (principal); M54.9 Dorsalgia, unspecified; F32.A Depression, unspecified; F41.9 Anxiety disorder, unspecified; F17.200 Nicotine dependence, unspecified, uncomplicated; F12.90 Cannabis use, unspecified, uncomplicated; Z79.899 Other long term (current) drug therapy
CPT/HCPCS: 36415; 80053; 85025; 81003; 99284; 96374; 96375 ×3; 96361 ×2; J2060; J2405; J1885; S0119; J1170

== ENCOUNTER 2022-07-06 10:26 | Emergency (ER) | payer MEDICARE, OTHER ==
[2022-07-06] MEDS ORDERED: HYDROmorphone 0.5 MG/0.5 ML SYRINGE IVP STA (10:48)
[2022-07-06] MEDS ORDERED: METOCLOPRAMIDE 5 MG/ML 2 ML VIAL IVP STA (10:48)
[2022-07-06] MEDS ORDERED: KETOROLAC 15 MG/ML 1 ML VIAL IVP STA ×2 (10:48→15:57)
[2022-07-06] MEDS ORDERED: HALOPERIDOL LACTATE 5 MG/ML 1 ML VIAL IVP ONE (10:49)
--- NOTE | 2022-07-06 10:56 | ED ---
Back Pain HPI - General Chief Complaint: Back Pain/Injury Stated Complaint: Vomiting,Back pain Time Seen by Provider: 07/06/22 10:42 Source: patient, RN notes reviewed Limitations: no limitations - History of Present Illness Initial Comments: This is a 62-year-old male who presents to the emergency department for lower back pain and vomiting. Patient has been here several times in the last couple of weeks for the same complaint. States that he had actually been doing well af ter being discharged 3 days ago, however this morning he began to have dry heaves again. Also complaining of lower abdominal pain. Reports a history of an abdominal hernia, and wonders if that is giving him problems again. Describes the abdominal pain as sharp and shooting. He is scheduled to see general surgery here in one week. He tried taking 8 mg Zofran at home with no relief in symptoms. States that the back pain continues to be worse than it has been before despite taking the hydrocodone he has a home. Denies any loss of bowel/bladder control or saddle anesthesia. Denies any chest pain or shortness of breath. Denies any fevers, chills, sore throat, cough, dyspnea, chest pain, palpitations, diarrhea, or headaches. MD Complaint: back pain - Related Data Home Medications Medication Instructions Recorded Confirmed ARIPiprazole [Abilify] 5 mg PO HS 12/10/19 07/06/22 Ibuprofen [Motrin] 800 mg PO Q8H PRN 07/06/22 07/06/22 Umeclidinium Brm/Vilanterol Tr 1 puff INHALATION RT-DAILY 07/06/22 07/06/22 [Anoro Ellipta 62.5-25 Mcg INH] buPROPion XL [Wellbutrin XL] 150 mg PO DAILY 07/06/22 07/06/22 Previous Rx's Medication Instructions Recorded Ondansetron [Zofran] 4 mg PO Q8HR PRN #15 tab 06/28/22 Metoclopramide [Reglan] 10 mg PO Q6H PRN #15 tab 07/06/22 Allergies Allergy/AdvReac Type Severity Reaction Status Date / Time No Known Allergies Allergy Verified 07/06/22 11:29 Review of Systems ROS Statement: Those systems with pertinent positive or pertinent negative responses have been documented in the HPI. ROS Other: All systems not noted in ROS Statement are negative. Past Medical History Past Medical History: Musculoskeletal Disorder Additional Past Medical History / Comment(s): chronic back pain, diverticulitis History of Any Multi-Drug Resistant Organisms: None Reported Past Surgical History: Orthopedic Surgery Additional Past Surgical History / Comment(s): rt knee lt shoulder Past Psychological History: Anxiety, Depression Smoking Status: Current every day smoker Past Alcohol Use History: None Reported Past Drug Use History: Marijuana General Exam Limitations: no limitations General appearance: alert, in distress Head exam: Present: atraumatic, normocephalic, normal inspection Respiratory exam: Present: normal lung sounds bilaterally. Absent: respiratory distress, wheezes, rales, rhonchi, stridor Cardiovascular Exam: Present: regular rate, normal rhythm, normal heart sounds. Absent: systolic murmur, diastolic murmur, rubs, gallop, clicks GI/Abdominal exam: Present: soft, tenderness (lower abdomen), normal bowel sounds. Absent: distended Neurological exam: Present: alert, oriented X3, CN II-XII intact Psychiatric exam: Present: normal affect, normal mood Skin exam: Present: warm, dry, intact, normal color. Absent: rash Course Vital Signs 07/06/22 07/06/22 10:34 14:50 Temperature 97.4 F L 96.9 F L Pulse Rate 58 L 63 Respiratory 20 18 Rate Blood Pressure 170/89 133/82 O2 Sat by Pulse 99 97 Oximetry Medical Decision Making - Medical Decision Making This is a 62-year-old male who presents to the emergency department for nausea, vomiting, and back pain. Was pt. sent in by a medical professional or institution? @ -No Did you speak to anyone other than the patient for history? @ -No Did you review nursing and triage notes? @ -Yes, and I agree, it is accurate with regards to the patient's symptoms. Were old charts reviewed? @ -No Differential Diagnosis? @ -Differential Back Pain: Strain, zoster, cauda equina syndrome, epidural abscess, vertebral osteomyelitis, discitis, fracture, subluxation, disc herniation, DJD, spinal stenosis, dissection, AAA, pancreatitis, peptic ulcer disease, pyelonephritis, kidney stone, this is not meant to be an all-inclusive list. CT interpreted by me (1pt min.)? @ -Computed tomography scan of the abdomen and pelvis obtained. My in terpretation identifies bowel wall thickening of the sigmoid colon. What testing was considered but not performed? (CT, X-rays, U/S, labs)? Why? @ -None What meds were considered but not given? Why? @ -None Did you discuss the management of the patient with other professionals? @ -No Did you reconcile home meds? @ -No Was smoking cessation discussed for >3mins.? @ -No Was critical care preformed (if so, how long)? @ -No Were there social determinants of health that impacted care today? How? (Homelessness, low income, unemployed, alcoholism, drug addiction, transportation, low edu. Level, literacy, decrease access to med. care, [facility], rehab)? @ -No Was there de-escalation of care discussed even if they declined? (Discuss DNR or withdrawal of care, Hospice)? @ -No What co-morbidities impacted this encounter? (DM, HTN, Smoking, COPD, CAD, Cancer, CVA, Hep., AIDS, mental health diagnosis, sleep apnea, morbid obesity)? @ -Chronic back pain Was patient admitted / discharged? @ -Discharged. Lab work obtained and found to be nonactionable. Urinalysis negative for signs of infection. Given that symptoms continue to persist and be worse than they've been in the past in terms of the back pain and nausea/vomiti ng, computed tomography scan of the abdomen and pelvis was obtained. Findings concerning for a nonspecific colitis. There were no irregularities noted to the spine. Symptoms were well controlled in the emergency department. Refill provided on the Reglan, which he states seems to work better for him than the Zofran. He is also advised to slowly advance his diet as tolerated and to alternate with ibuprofen and Tylenol as needed for pain relief. He will follow up with general surgery next week with regards to his hernia, and at that time he can discuss the colitis and has ongoing symptoms as well. Red flag signs and symptoms of back pain reviewed, such as loss of bowel/bladder control and saddle anesthesia, which would necessitate the need for him to return to the emergency department immediately. Undiagnosed new problem with uncertain prognosis? @ -None Drug Therapy requiring intensive monitoring for toxicity (Heparin, Nitro, Insulin, Cardizem)? @ -None Were any procedures done? @ -None Diagnosis/symptom? @ -Chronic back pain Acute, or Chronic, or Acute on Chronic? @ -Chronic Uncomplicated (without systemic symptoms) or Complicated (systemic symptoms)? @ -Uncomplicated Side effects of treatment? @ -None Exacerbation, Progression, or Severe Exacerbation] @ -Exacerbation Poses a threat to life or bodily function? @ -Yes, the pain is making it difficult to function Diagnosis/symptom? @ -Nausea/Vomiting/Abdominal Pain Acute, or Chronic, or Acute on Chronic? @ -Acute Uncomplicated (without systemic symptoms) or Complicated (systemic symptoms)? @ -Uncomplicated Side effects of treatment? @ -None Exacerbation, Progression, or Severe Exacerbation] @ -Not applicable Poses a threat to life or bodily function? @ -No Return precautions reviewed in depth, the patient is instructed to return to the emergency department with any new, worsening, or concerning symptoms. Patient verbalized understanding. This case was discussed in detail with the attending ED physician, Dr. Peralta. Presentation, findings, and treatment plan discussed in detail as well. - Lab Data Result diagrams: 07/06/22 11:24 07/06/22 11:24 Lab Results 07/06/22 07/06/22 07/06/22 Range/Units 11:24 11:24 11:24 WBC 6.5 (3.8-10.6) k/uL RBC 5.29 (4.30-5.90) m/uL Hgb 15.8 (13.0-17.5) gm/dL Hct 46.6 (39.0-53.0) % MCV 88.1 (80.0-100.0) fL MCH 29.9 (25.0-35.0) pg MCHC 33.9 (31.0-37.0) g/dL RDW 12.7 (11.5-15.5) % Plt Count 141 L (150-450) k/uL MPV 9.2 Neutrophils % 77 % Lymphocytes % 17 % Monocytes % 3 % Eosinophils % 1 % Basophils % 0 % Neutrophils # 5.0 (1.3-7.7) k/uL Lymphocytes # 1.1 (1.0-4.8) k/uL Monocytes # 0.2 (0-1.0) k/uL Eosinophils # 0.1 (0-0.7) k/uL Basophils # 0.0 (0-0.2) k/uL Sodium 139 (137-145) mmol/L Potassium 4.1 (3.5-5.1) mmol/L Chloride 106 (98-107) mmol/L Carbon Dioxide 28 (22-30) mmol/L Anion Gap 5 mmol/L BUN 13 (9-20) mg/dL Creatinine 0.91 (0.66-1.25) mg/dL Est GFR (CKD-EPI)AfAm >90 (>60 ml/min/1.73 sqM) Est GFR (CKD-EPI)NonAf >90 (>60 ml/min/1.73 sqM) Glucose 102 H (74-99) mg/dL Plasma Lactic Acid Rakesh 1.3 (0.7-2.0) mmol/L Calcium 8.9 (8.4-10.2) mg/dL Total Bilirubin 0.6 (0.2-1.3) mg/dL AST 26 (17-59) U/L ALT 25 (4-49) U/L Alkaline Phosphatase 84 (38-126) U/L Troponin I (0.000-0.034) ng/mL Total Protein 7.4 (6.3-8.2) g/dL Albumin 4.4 (3.5-5.0) g/dL Amylase 75 (30-110) U/L Lipase 124 (23-300) U/L Urine Color Urine Appearance (Clear) Urine pH (5.0-8.0) Ur Specific [place] (1.001-1.035) Urine Protein (Negative) Urine Glucose (UA) (Negative) Urine Ketones (Negative) Urine Blood (Negative) Urine Nitrite (Negative) Urine Bilirubin (Negative) Urine Urobilinogen (<2.0) mg/dL Ur Leukocyte Esterase (Negative) Urine Opiates Screen (NotDetected) Ur Oxycodone Screen (NotDetected) Urine Methadone Screen (NotDetected) Ur Propoxyphene Screen (NotDetected) Ur Barbiturates Screen (NotDetected) U Tricyclic Antidepress (NotDetected) Ur Phencyclidine Scrn (NotDetected) Ur Amphetamines Screen (NotDetected) U Methamphetamines Scrn (NotDetected) U Benzodiazepines Scrn (NotDetected) Urine Cocaine Screen (NotDetected) U Marijuana (THC) Screen (NotDetected) 07/06/22 07/06/22 07/06/22 Range/Units 11:24 14:25 14:25 WBC (3.8-10.6) k/uL RBC (4.30-5.90) m/uL Hgb (13.0-17.5) gm/dL Hct (39.0-53.0) % MCV (80.0-100.0) fL MCH (25.0-35.0) pg MCHC (31.0-37.0) g/dL RDW (11.5-15.5) % Plt Count (150-450) k/uL MPV Neutrophils % % Lymphocytes % % Monocytes % % Eosinophils % % Basophils % % Neutrophils # (1.3-7.7) k/uL Lymphocytes # (1.0-4.8) k/uL Monocytes # (0-1.0) k/uL Eosinophils # (0-0.7) k/uL Basophils # (0-0.2) k/uL Sodium (137-145) mmol/L Potassium (3.5-5.1) mmol/L Chloride (98-107) mmol/L Carbon Dioxide (22-30) mmol/L Anion Gap mmol/L BUN (9-20) mg/dL Creatinine (0.66-1.25) mg/dL Est GFR (CKD-EPI)AfAm (>60 ml/min/1.73 sqM) Est GFR (CKD-EPI)NonAf (>60 ml/min/1.73 sqM) Glucose (74-99) mg/dL Plasma Lactic Acid Rakesh (0.7-2.0) mmol/L Calcium (8.4-10.2) mg/dL Total Bilirubin (0.2-1.3) mg/dL AST (17-59) U/L ALT (4-49) U/L Alkaline Phosphatase (38-126) U/L Troponin I <0.012 (0.000-0.034) ng/mL Total Protein (6.3-8.2) g/dL Albumin (3.5-5.0) g/dL Amylase (30-110) U/L Lipase (23-300) U/L Urine Color Yellow Urine Appearance Clear (Clear) Urine pH 5.5 (5.0-8.0) Ur Specific [place] >1.050 H (1.001-1.035) Urine Protein Trace H (Negative) Urine Glucose (UA) Negative (Negative) Urine Ketones Trace H (Negative) Urine Blood Negative (Negative) Urine Nitrite Negative (Negative) Urine Bilirubin Negative (Negative) Urine Urobilinogen <2.0 (<2.0) mg/dL Ur Leukocyte Esterase Negative (Negative) Urine Opiates Screen Detected H (NotDetected) Ur Oxycodone Screen Not Detected (NotDetected) Urine Methadone Screen Not Detected (NotDetected) Ur Propoxyphene Screen Not Detected (NotDetected) Ur Barbiturates Screen Not Detected (NotDetected) U Tricyclic Antidepress Not Detected (NotDetected) Ur Phencyclidine Scrn Not Detected (NotDetected) Ur Amphetamines Screen Not Detected (NotDetected) U Methamphetamines Scrn Not Detected (NotDetected) U Benzodiazepines Scrn Not Detected (NotDetected) Urine Cocaine Screen Not Detected (NotDetected) U Marijuana (THC) Screen Detected H (NotDetected) - Radiology Data Radiology results: report reviewed, image reviewed Disposition Clinical Impression: Colitis, Nausea and vomiting, Lower back pain Disposition: HOME SELF-CARE Instructions (If sedation given, give patient instructions): Colitis (ED) Additional Instructions: Return to the emergency department with any new, worsening, or concerning symptoms. Continue to alternate with Reglan and Zofran as needed for nausea and vomiting. Try to follow a very bland or liquid diet over the next couple of days and slowly advance your diet as tolerated. Continue to alternate with ibuprofen and Tylenol for pain relief and take your prescribed pain medication. Follow up with general surgery as scheduled next week. Prescriptions: Metoclopramide [Reglan] 10 mg PO Q6H PRN #15 tab PRN Reason: Nausea And Vomiting Is patient prescribed a controlled substance at d/c from ED?: No Referrals: None,Stated [Primary Care Provider] - 1-2 days
[2022-07-06 11:43] LABS: Basophils % (A) 0 %; Eosinophils # (A) 0.1 k/uL (0-0.7); Eosinophils % (A) 1 %; HCT 46.6 % (39.0-53.0); HGB 15.8 gm/dL (13.0-17.5); Lymphocytes # (A) 1.1 k/uL (1.0-4.8); Lymphocytes % (A) 17 %; MCH 29.9 pg (25.0-35.0); MCHC 33.9 g/dL (31.0-37.0); MCV 88.1 fL (80.0-100.0); Mean Platelet Volume 9.2; Monocytes # (A) 0.2 k/uL (0-1.0); Monocytes % (A) 3 %; Neutrophils % (A) 77 %; Platelet Count 141 k/uL (150-450); RBC 5.29 m/uL (4.30-5.90); RDW 12.7 % (11.5-15.5); WBC 6.5 k/uL (3.8-10.6)
[2022-07-06 11:57] LABS: ALT 25 U/L (4-49); AST 26 U/L (17-59); African American GFR (CKD) >90 (>60 ml/min/1.73 sqM); Albumin 4.4 g/dL (3.5-5.0); Alkaline Phosphatase 84 U/L (38-126); Amylase 75 U/L (30-110); Anion Gap 5 mmol/L; Blood Urea Nitrogen 13 mg/dL (9-20); Calcium 8.9 mg/dL (8.4-10.2); Carbon Dioxide 28 mmol/L (22-30); Chloride 106 mmol/L (98-107); Glucose 102 mg/dL (74-99); Lipase 124 U/L (23-300); Non-African American GFR(CKD) >90 (>60 ml/min/1.73 sqM); Potassium 4.1 mmol/L (3.5-5.1); Sodium 139 mmol/L (137-145); Total Bilirubin 0.6 mg/dL (0.2-1.3); Total Protein 7.4 g/dL (6.3-8.2)
[2022-07-06] MEDS ORDERED: HYDROmorphone 1 MG/ML 1 ML SYRINGE IVP STA ×2 (12:24→15:56)
--- NOTE | 2022-07-06 12:29 | CT ---
EXAMINATION TYPE: CT abdomen pelvis w con DATE OF EXAM: 07/06/2022 COMPARISON: 10/24/2021 HISTORY: abdominal pain, hernia CT DLP: 1105.3 mGycm CONTRAST: CT scan of the abdomen and pelvis is performed without Oral Contrast and with IV Contrast, patient in jected with 100 mL of Isovue 300. FINDINGS: LUNG BASES-: No visible nodule. No infiltrate. LIVER/GB: No calcified gallstones. No space occupying hepatic lesion. Biliary tree is of normal ca liber. PANCREAS: No inflammation. No distinct mass. SPLEEN: No splenic enlargement. No lesion seen. ADRENALS: No nodule. No thickening. KIDNEYS/BLADDER: No hydronephrosis. No nephrolithiasis. No distinct renal mass. There is wall thic kening of the urinary bladder which is not ideally distended however underlying cystitis is not exclu ded. BOWEL: Normal appendix. Normal bowel caliber. No inflammation. There is colonic wall thickening ext ending from the splenic flexure through the proximal sigmoid colon which could reflect a nonspecific colitis with differential diagnostic possibilities including inflammatory, infectious and vascular et iologies. GENITAL ORGANS: No gross abnormality. LYMPH NODES: No greater than 1cm abdominal or pelvic lymph nodes are appreciated. AORTA: No significant abnormality. OSSEOUS STRUCTURES: No significant abnormality is seen. OTHER: No significant additional abnormality is seen. IMPRESSION: 1. Correlate for nonspecific colitis. 2. Correlate for urinary bladder cystitis.
[2022-07-06 14:55] VITALS: BP 133/82; PULSE 63; RESP 18; TEMP 96.9
[2022-07-06 15:10] LABS: Appearance,Urine Clear (Clear); Bilirubin,Urine Negative (Negative); Blood,Urine Negative (Negative); Color,Urine Yellow; Glucose,Urine (UA) Negative (Negative); Ketones,Urine Trace (Negative); Leukocyte Esterase,Urine Negative (Negative); Nitrite,Urine Negative (Negative); PH, Urine 5.5 (5.0-8.0); Protein,Urine Trace (Negative); Urobilinogen,Urine <2.0 mg/dL (<2.0)
[2022-07-06 15:26] LABS: Specific Gravity,Urine >1.050 (1.001-1.035)
[2022-07-06 15:39] LABS: Amphetamine Screen,Urine Not Detected (NotDetected); Barbiturate Screen,Urine Not Detected (NotDetected); Benzodiazepines Screen,Urine Not Detected (NotDetected); Cocaine Screen,Urine Not Detected (NotDetected); Methadone Screen, Urine Not Detected (NotDetected); Opiate Screen,Urine Detected (NotDetected); Oxycodone Screen, Urine Not Detected (NotDetected); Phencyclidine Screen,Urine Not Detected (NotDetected); Tricyclic Antidepressant,Urine Not Detected (NotDetected); Urn Cannabinoid Scrn Detected (NotDetected)
== END 2022-07-06 16:17 | disposition home or self-care (01) ==
LOC: EC 10:26
DX: K52.9 Noninfective gastroenteritis and colitis, unspecified (principal); M54.50 Low back pain, unspecified; F41.9 Anxiety disorder, unspecified; F32.A Depression, unspecified; F17.200 Nicotine dependence, unspecified, uncomplicated; F12.90 Cannabis use, unspecified, uncomplicated
CPT/HCPCS: 36415; 80053; 82150; 83605; 83690; 84484; 85025; 81003; 80306; 74177; 99284; 96374; 96375 ×3; 96376 ×3; J1630; J2765; J1170 ×2; J1885; Q9967

== ENCOUNTER 2022-08-08 11:03 | Emergency (ER) | payer MEDICARE, OTHER ==
[2022-08-08 11:30] VITALS: TEMP 97.8
--- NOTE | 2022-08-08 12:25 | ED ---
General Adult HPI - General Source: patient, RN notes reviewed Mode of arrival: ambulatory Limitations: no limitations <Tab Bravo - Last Filed: 08/08/22 12:25> <Pierce Merritt - Last Filed: 08/08/22 15:48> <Pierce Emery - Last Filed: 08/08/22 16:55> - General Chief complaint: Nausea/Vomiting/Diarrhea Stated complaint: vomiting, back pain Time Seen by Provider: 08/08/22 12:24 - History of Present Illness Initial comments: Patient is a 62-year-old male presenting with chief complaint of nausea and vo miting that started at 4 AM today. He also admits to lower back pain. No chest pain or difficulty breathing. (Tab Bravo) 62-year-old male presenting for evaluation of right flank pain, right groin pain and vomiting. Patient states he's had similar episodes to this in the recent past. He states he's had multiple episodes of vomiting. Denies upper abdominal pain or chest pain. The pain is lower abdomen and right groin as well as right flank. No dysuria or hematuria (Pierce Merritt) - Related Data Home Medications Medication Instructions Recorded Confirmed ARIPiprazole [Abilify] 5 mg PO HS 12/10/19 07/06/22 Ibuprofen [Motrin] 800 mg PO Q8H PRN 07/06/22 07/06/22 Umeclidinium Brm/Vilanterol Tr 1 puff INHALATION RT-DAILY 07/06/22 07/06/22 [Anoro Ellipta 62.5-25 Mcg INH] buPROPion XL [Wellbutrin XL] 150 mg PO DAILY 07/06/22 07/06/22 Previous Rx's Medication Instructions Recorded Ondansetron [Zofran] 4 mg PO Q8HR PRN #15 tab 06/28/22 Metoclopramide [Reglan] 10 mg PO Q6H PRN #15 tab 07/06/22 Allergies Allergy/AdvReac Type Severity Reaction Status Date / Time No Known Allergies Allergy Verified 07/06/22 11:29 Review of Systems ROS Other: All systems not noted in ROS Statement are negative. <Tab Bravo - Last Filed: 08/08/22 12:25> ROS Other: All systems not noted in ROS Statement are negative. <AdelaetiennePierce Idalia - Last Filed: 08/08/22 15:48> ROS Other: All systems not noted in ROS Statement are negative. <RupertPierce - Last Filed: 08/08/22 16:55> ROS Statement: Those systems with pertinent positive or pertinent negative responses have been documented in the HPI. Past Medical History Past Medical History: Chest Pain / Angina, Musculoskeletal Disorder Additional Past Medical History / Comment(s): chronic back pain, diverticulitis .hernia History of Any Multi-Drug Resistant Organisms: None Reported Past Surgical History: Orthopedic Surgery Additional Past Surgical History / Comment(s): rt knee lt shoulder Past Psychological History: Anxiety, Depression Smoking Status: Current every day smoker Past Alcohol Use History: None Reported Past Drug Use History: Marijuana <Tab Bravo - Last Filed: 08/08/22 12:25> General Exam Limitations: no limitations <Tab Bravo - Last Filed: 08/08/22 12:25> General appearance: alert Head exam: Present: atraumatic, normocephalic Eye exam: Present: normal appearance, PERRL ENT exam: Present: mucous membranes dry Neck exam: Present: normal inspection Respiratory exam: Present: normal lung sounds bilaterally. Absent: respiratory distress, wheezes Cardiovascular Exam: Present: normal rhythm, bradycardia GI/Abdominal exam: Present: soft, tenderness. Absent: distended Extremities exam: Present: normal inspection Neurological exam: Present: alert, oriented X3, CN II-XII intact. Absent: motor sensory deficit Psychiatric exam: Present: normal affect, normal mood Skin exam: Present: warm, dry <AdelaetiennePierce Idalia - Last Filed: 08/08/22 15:48> - General Exam Comments Initial Comments: Visual Physical Exam Vital signs reviewed General: Well-appearing, nontoxic, no acute distress. Head: Normocephalic, atraumatic Eyes: PERRLA, EOMI ENT: Airway patent Chest: Nonlabored breathing Skin: No visual rash, normal skin tone Neuro: Alert and oriented 3 Musculoskeletal: No gross abnormalities (Tab Bravo) Course <AdelaPierce hernandez - Last Filed: 08/08/22 15:48> Vital Signs 08/08/22 11:26 Temperature 97.8 F Pulse Rate 54 L Respiratory 20 Rate Blood Pressure 152/87 O2 Sat by Pulse 99 Oximetry - Reevaluation(s) Reevaluation #1: 08/08/22 1600 Patient care signed out at shift change awaiting CT imaging and reevaluation. (Pierce Merritt) EKG Findings - EKG Comments: EKG Findings:: EKG: Sinus bradycardia rate of 48, NC interval 148, QRS duration 91, QTC [address] segment elevation. - EKG Results: EKG: interpreted by ERMD <Pierce Merritt - Last Filed: 08/08/22 15:48> Medical Decision Making - Lab Data Result diagrams: 08/08/22 13:22 08/08/22 13:22 <Pierce Merritt - Last Filed: 08/08/22 15:48> - Lab Data Result diagrams: 08/08/22 13:22 08/08/22 13:22 <Pierce Emery - Last Filed: 08/08/22 16:55> - Medical Decision Making Was pt. sent in by a medical professional or institution ([facility], PACS ADMINISTRATOR, urgent care, hospital, or prison...) When possible be specific @ -[No] Did you speak to anyone other than the patient for history (EMS, parent, family, police, friend...)? What history was obtained from this source @ -[No] Did you review nursing and triage notes (agree or disagree)? Why? @ -[I reviewed and agree with nursing and triage notes] Were old charts reviewed (outside hosp., previous admission, EMS record, old EKG, old radiological studies, urgent care reports/EKG's, prison records)? Report findings @ -[No old charts were reviewed] Differential Diagnosis (chest pain, altered mental status, abdominal pain women, abdominal pain men, vaginal bleeding, weakness, fever, dyspnea, syncope, headache, dizziness, GI bleed, back pain, seizure, CVA, palpatations, mental health, musculoskeletal)? @ Differential Abdominal Pain Men: Appendicitis, cholecystitis, diverticulosis, ischemic bowel, pancreatitis, hepatitis, UTI, gastroenteritis, AAA, incarcerated hernia, bowel obstruction, constipation, inflammatory bowel, hepatitis, peptic ulcer disease, splenic infarction, perforated viscus, testicular torsion, this is not meant to be an all-inclusive list EKG interpreted by me (3pts min.). @ -[As above] X-rays interpreted by me (1pt min.). @ -[None done] CT interpreted by me (1pt min.). @ CT of the abdomen and pelvis ordered results pending U/S interpreted by me (1pt. min.). @ -[None done] What testing was considered but not performed or refused? (CT, X-rays, U/S, lab s)? Why? @ -[None] What meds were considered but not given or refused? Why? @ -[None] Did you discuss the management of the patient with other professionals (professionals i.e. DrAmi, PA, PACS ADMINISTRATOR, lab, RT, psych nurse, high school social science teacher, management lead, teacher, chief risk officer, case assistant)? Give summary @ -[No] Was smoking cessation discussed for >3mins.? @ -[No] Was critical care preformed (if so, how long)? @ -[No] Were there social determinants of health that impacted care today? How? (Homelessness, low income, unemployed, alcoholism, drug addiction, transportation, low edu. Level, literacy, decrease access to med. care, [place] [facility], rehab)? @ -[No] Was there de-escalation of care discussed even if they declined (Discuss DNR or withdrawal of care, Hospice)? DNR status @ -[No] What co-morbidities impacted this encounter? (DM, HTN, Smoking, COPD, CAD, Cancer, CVA, ARF, Chemo, Hep., AIDS, mental health diagnosis, sleep apnea, morbid obesity)? @ -Tobacco use, hypertension, chronic abdominal pain Was patient admitted / discharged? Hospital course, mention meds given and route, prescriptions, significant lab abnormalities, going to OR and other pertinent info. @ -62 -year-old male with vomiting, right flank pain and lower abdominal pain. Workup is initiated in the emergency department. Patient care signed out at shift change awaiting laboratory testing, CT imaging and reevaluation. (Pierce Merritt) - Lab Data Lab Results 08/08/22 08/08/22 08/08/22 Range/Units 13:22 13:22 13:22 WBC 6.3 (3.8-10.6) k/uL RBC 5.60 (4.30-5.90) m/uL Hgb 16.6 (13.0-17.5) gm/dL Hct 48.7 (39.0-53.0) % MCV 87.0 (80.0-100.0) fL MCH 29.7 (25.0-35.0) pg MCHC 34.1 (31.0-37.0) g/dL RDW 12.7 (11.5-15.5) % Plt Count 243 (150-450) k/uL MPV 7.9 Neutrophils % 76 % Lymphocytes % 19 % Monocytes % 3 % Eosinophils % 0 % Basophils % 1 % Neutrophils # 4.7 (1.3-7.7) k/uL Lymphocytes # 1.2 (1.0-4.8) k/uL Monocytes # 0.2 (0-1.0) k/uL Eosinophils # 0.0 (0-0.7) k/uL Basophils # 0.0 (0-0.2) k/uL PT (9.0-12.0) sec INR (<1.2) APTT (22.0-30.0) sec Sodium 141 (137-145) mmol/L Potassium 4.4 (3.5-5.1) mmol/L Chloride 105 (98-107) mmol/L Carbon Dioxide 25 (22-30) mmol/L Anion Gap 11 mmol/L BUN 12 (9-20) mg/dL Creatinine 0.86 (0.66-1.25) mg/dL Est GFR (CKD-EPI)AfAm >90 (>60 ml/min/1.73 sqM) Est GFR (CKD-EPI)NonAf >90 (>60 ml/min/1.73 sqM) Glucose 118 H (74-99) mg/dL Plasma Lactic Acid Rakesh (0.7-2.0) mmol/L Calcium 9.7 (8.4-10.2) mg/dL Total Bilirubin 0.7 (0.2-1.3) mg/dL AST 28 (17-59) U/L ALT 23 (4-49) U/L Alkaline Phosphatase 104 (38-126) U/L Troponin I (0.000-0.034) ng/mL Total Protein 8.2 (6.3-8.2) g/dL Albumin 5.0 (3.5-5.0) g/dL Amylase 54 (30-110) U/L Lipase 55 (23-300) U/L Urine Color Yellow Urine Appearance Clear (Clear) Urine pH 8.5 H (5.0-8.0) Ur Specific [place] 1.017 (1.001-1.035) Urine Protein Trace H (Negative) Urine Glucose (UA) Negative (Negative) Urine Ketones 1+ H (Negative) Urine Blood Negative (Negative) Urine Nitrite Negative (Negative) Urine Bilirubin Negative (Negative) Urine Urobilinogen <2.0 (<2.0) mg/dL Ur Leukocyte Esterase Negative (Negative) 08/08/22 08/08/22 08/08/22 Range/Units 13:22 13:22 13:22 WBC (3.8-10.6) k/uL RBC (4.30-5.90) m/uL Hgb (13.0-17.5) gm/dL Hct (39.0-53.0) % MCV (80.0-100.0) fL MCH (25.0-35.0) pg MCHC (31.0-37.0) g/dL RDW (11.5-15.5) % Plt Count (150-450) k/uL MPV Neutrophils % % Lymphocytes % % Monocytes % % Eosinophils % % Basophils % % Neutrophils # (1.3-7.7) k/uL Lymphocytes # (1.0-4.8) k/uL Monocytes # (0-1.0) k/uL Eosinophils # (0-0.7) k/uL Basophils # (0-0.2) k/uL PT 9.6 (9.0-12.0) sec INR 0.9 (<1.2) APTT 23.9 (22.0-30.0) sec Sodium (137-145) mmol/L Potassium (3.5-5.1) mmol/L Chloride (98-107) mmol/L Carbon Dioxide (22-30) mmol/L Anion Gap mmol/L BUN (9-20) mg/dL Creatinine (0.66-1.25) mg/dL Est GFR (CKD-EPI)AfAm (>60 ml/min/1.73 sqM) Est GFR (CKD-EPI)NonAf (>60 ml/min/1.73 sqM) Glucose (74-99) mg/dL Plasma Lactic Acid Rakesh 1.7 (0.7-2.0) mmol/L Calcium (8.4-10.2) mg/dL Total Bilirubin (0.2-1.3) mg/dL AST (17-59) U/L ALT (4-49) U/L Alkaline Phosphatase (38-126) U/L Troponin I <0.012 (0.000-0.034) ng/mL Total Protein (6.3-8.2) g/dL Albumin (3.5-5.0) g/dL Amylase (30-110) U/L Lipase (23-300) U/L Urine Color Urine Appearance (Clear) Urine pH (5.0-8.0) Ur Specific [place] (1.001-1.035) Urine Protein (Negative) Urine Glucose (UA) (Negative) Urine Ketones (Negative) Urine Blood (Negative) Urine Nitrite (Negative) Urine Bilirubin (Negative) Urine Urobilinogen (<2.0) mg/dL Ur Leukocyte Esterase (Negative) - Radiology Data Interpreted by me: (Interpreted by me no evidence of acute processes diverticulosis but no otitis there is some possible thickening of the proximal third of the distal colon however likely artifact patient feels much improved at this time he went to be discharged.Was pt. sent in by a medical professional or institution (, PA, PACS ADMINISTRATOR, urgent care, hospital, or prison...) When possible be specific @ -No Did you speak to anyone other than the patient for history (EMS, parent, family, police, friend...)? What history was obtained from this source @ -Dr. Merritt upon transfer of care Did you review nursing and triage notes (agree or disagree)? Why? @ -I reviewed and agree with nursing and triage notes Were old charts reviewed (outside hosp., previous admission, EMS record, old EKG, old radiological studies, urgent care reports/EKG's, prison records)? Report findings @ -No old charts were reviewed Differential Diagnosis (chest pain, altered mental status, abdominal pain women, abdominal pain men, vaginal bleeding, weakness, fever, dyspnea, syncope, h eadache, dizziness, GI bleed, back pain, seizure, CVA, palpatations, mental health, musculoskeletal)? @ -Abdominal pain EKG interpreted by me (3pts min.). @ -As above X-rays interpreted by me (1pt min.). @ -None done CT interpreted by me (1pt min.). @ -As above U/S interpreted by me (1pt. min.). @ -None done What testing was considered but not performed or refused? (CT, X-rays, U/S, labs)? Why? @ -None What meds were considered but not given or refused? Why? @ -None Did you discuss the management of the patient with other professionals (professionals i.e. , PA, PACS ADMINISTRATOR, lab, RT, psych nurse, high school social science teacher, management lead, teacher, chief risk officer, case assistant)? Give summary @ -No Was smoking cessation discussed for >3mins.? @ -No Was critical care preformed (if so, how long)? @ -No Were there social determinants of health that impacted care today? How? (Homelessness, low income, unemployed, alcoholism, drug addiction, transportation, low edu. Level, literacy, decrease access to med. care, [place] [facility], rehab)? @ -No Was there de-escalation of care discussed even if they declined (Discuss DNR or withdrawal of care, Hospice)? DNR status @ -No What co-morbidities impacted this encounter? (DM, HTN, Smoking, COPD, CAD, Cancer, CVA, ARF, Chemo, Hep., AIDS, mental health diagnosis, sleep apnea, morbid obesity)? @ -Diverticulosis, depression and anxiety] Was patient admitted / discharged? Hospital course, mention meds given and route, prescriptions, significant lab abnormalities, going to OR and other pert inent info. @ -The patient was discharged Undiagnosed new problem with uncertain prognosis? @ -No Drug Therapy requiring intensive monitoring for toxicity (Heparin, Nitro, Insulin, Cardizem)? @ -No Were any procedures done? @ -No Diagnosis/symptom? @ -Gastroenteritis, abdominal pain Acute, or Chronic, or Acute on Chronic? @ -Acute Uncomplicated (without systemic symptoms) or Complicated (systemic symptoms)? @ -default Side effects of treatment? @ -No Exacerbation, Progression, or Severe Exacerbation? @ -No Poses a threat to life or bodily function? How? (Chest pain, [place], [place], pneumonia, PE, COPD, DKA, ARF, appy, cholecystitis, CVA, Diverticulitis, Homicidal, Suicidal, threat to staff... and all critical care pts) @ -No (Pierce Emery) Disposition <Tab Bravo - Last Filed: 08/08/22 12:25> <Pierce Merritt - Last Filed: 08/08/22 15:48> Is patient prescribed a controlled substance at d/c from ED?: No Decision Date: 08/08/22 Decision Time: 16:40 <Pierce Emery - Last Filed: 08/08/22 16:55> Clinical Impression: Gastroenteritis, Abdominal pain Disposition: HOME SELF-CARE Condition: Good Instructions (If sedation given, give patient instructions): Acute Nausea and Vomiting (ED), Acute Diarrhea (ED), Abdominal Pain (ED) Referrals: Elvis Hoffmann Jr, DO [Doctor of Osteopathic Medicine] - 1-2 days
[2022-08-08] MEDS ORDERED: ONDANSETRON 4 MG/2 ML VIAL IVP STA (13:10)
[2022-08-08] MEDS ORDERED: SODIUM CHLORIDE 0.9% 1,000 ML IV STA (13:10)
[2022-08-08] MEDS ORDERED: HYDROmorphone 0.5 MG/0.5 ML SYRINGE IVP STA (13:11)
[2022-08-08 13:45] LABS: Appearance,Urine Clear (Clear); Basophils % (A) 1 %; Bilirubin,Urine Negative (Negative); Blood,Urine Negative (Negative); Color,Urine Yellow; Eosinophils % (A) 0 %; Glucose,Urine (UA) Negative (Negative); HCT 48.7 % (39.0-53.0); HGB 16.6 gm/dL (13.0-17.5); Ketones,Urine 1+ (Negative); Leukocyte Esterase,Urine Negative (Negative); Lymphocytes # (A) 1.2 k/uL (1.0-4.8); Lymphocytes % (A) 19 %; MCH 29.7 pg (25.0-35.0); MCHC 34.1 g/dL (31.0-37.0); Mean Platelet Volume 7.9; Monocytes # (A) 0.2 k/uL (0-1.0); Monocytes % (A) 3 %; Neutrophils # (A) 4.7 k/uL (1.3-7.7); Neutrophils % (A) 76 %; Nitrite,Urine Negative (Negative); PH, Urine 8.5 (5.0-8.0); Platelet Count 243 k/uL (150-450); Protein,Urine Trace (Negative); RDW 12.7 % (11.5-15.5); Specific Gravity,Urine 1.017 (1.001-1.035); Urobilinogen,Urine <2.0 mg/dL (<2.0); WBC 6.3 k/uL (3.8-10.6)
[2022-08-08 13:49] LABS: INR 0.9 (<1.2); Partial Thromboplastin Time 23.9 sec (22.0-30.0); Prothrombin Time 9.6 sec (9.0-12.0)
[2022-08-08 13:53] LABS: ALT 23 U/L (4-49); AST 28 U/L (17-59); African American GFR (CKD) >90 (>60 ml/min/1.73 sqM); Alkaline Phosphatase 104 U/L (38-126); Amylase 54 U/L (30-110); Anion Gap 11 mmol/L; Blood Urea Nitrogen 12 mg/dL (9-20); Calcium 9.7 mg/dL (8.4-10.2); Carbon Dioxide 25 mmol/L (22-30); Chloride 105 mmol/L (98-107); Glucose 118 mg/dL (74-99); Lipase 55 U/L (23-300); Non-African American GFR(CKD) >90 (>60 ml/min/1.73 sqM); Potassium 4.4 mmol/L (3.5-5.1); Sodium 141 mmol/L (137-145); Total Bilirubin 0.7 mg/dL (0.2-1.3); Total Protein 8.2 g/dL (6.3-8.2)
[2022-08-08] MEDS ORDERED: HYDROcodone/APAP 10-325MG 1 EACH TAB PO ONE (15:14)
--- NOTE | 2022-08-08 16:12 | CT ---
EXAMINATION TYPE: CT abdomen pelvis wo con DATE OF EXAM: 08/08/2022 COMPARISON: 07/06/2012 INDICATION: Abdominal pain DLP: 689.8 mGycm, Automated exposure control for dose reduction was used. CONTRAST: 0 mL of Isovue 300. Study performed without Oral Contrast TECHNIQUE: Axial images were obtained from above the diaphragm to the pubic rami in the axial plane a t 5 mm thick sections. Reconstructed images are reviewed on the computer in the coronal plane. FINDINGS: Limited CT sections are obtained the lung bases. The lung bases are clear. CT ABDOMEN: Liver: Normal Spleen: Normal Pancreas: Normal Adrenal glands: The adrenal glands are normal. Gallbladder: Normal Kidneys: No masses are evident. No hydronephrosis is present. No cysts are present. No renal stone s are evident. Aorta: Vascular calcification is within the aorta. Inferior vena cava: Normal. CT PELVIS: Diverticular changes are within the sigmoid colon. No inflammatory changes adjacent present to sugges t acute diverticulitis. Minimal wall thickening within the proximal third of the descending colon is not excluded. Inflammatory changes are identified adjacent. This could be related to incomplete diste ntion. Correlate with location of the patient's pain. This study is performed without oral contrast l imiting bowel evaluation. Appendix: Normal as visualized. Urinary bladder: Normal. Genitourinary structures: Prostate appears normal Osseous structures: No suspicious lytic or sclerotic lesions. IMPRESSIONS: 1. Some minimal wall thickening of the proximal third of the descending colon is not excluded. This could be related to incomplete distention. Consider colitis. Correlate with location of the patient's pain. 2. Diverticulosis without acute diverticulitis.
[2022-08-08] MEDS ORDERED: KETOROLAC 15 MG/ML 1 ML VIAL IVP STA (17:17)
[2022-08-08 17:35] VITALS: BP 129/72; PULSE 69; RESP 17
== END 2022-08-08 17:35 | disposition home or self-care (01) ==
LOC: EC 11:03
DX: K52.9 Noninfective gastroenteritis and colitis, unspecified (principal); F32.A Depression, unspecified; F41.9 Anxiety disorder, unspecified; F17.200 Nicotine dependence, unspecified, uncomplicated; F12.90 Cannabis use, unspecified, uncomplicated; Z79.899 Other long term (current) drug therapy
CPT/HCPCS: 36415; 93005; 80053; 82150; 83605; 83690; 84484; 85025; 85610; 85730; 81003; 74176; 99285; 96374; 96375 ×2; 96361; J2405; J1885; J1170

== ENCOUNTER → 2022-09-15 | Outpatient (CLI) | payer MEDICARE, OTHER ==
[2022-09-15 10:28] LABS: HCT 45.3 % (39.0-53.0); HGB 14.8 gm/dL (13.0-17.5); MCH 29.2 pg (25.0-35.0); MCHC 32.7 g/dL (31.0-37.0); MCV 89.2 fL (80.0-100.0); Mean Platelet Volume 8.2; Platelet Count 208 k/uL (150-450); RBC 5.08 m/uL (4.30-5.90); RDW 12.7 % (11.5-15.5); WBC 4.3 k/uL (3.8-10.6)
== END | disposition home or self-care (01) ==
LOC: LABPAT 08:19
PROVIDERS: ATTEND Surgery Plastic and Reconstructive Surgery
DX: Z01.812 Encounter for preprocedural laboratory examination (principal); K40.41 Unilateral inguinal hernia, with gangrene, recurrent
CPT/HCPCS: 36415; 85027

== ENCOUNTER 2022-09-17 07:07 | Day surgery (SDC) | payer MEDICARE, OTHER ==
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
[~2022-09-17 07:07] MED LIST: ACETAMINOPHEN TAB 500 MG TAB PO PRN; GABAPENTIN 300 MG CAP PO STA; HEPARIN SODIUM,PORCINE/PF 5,000 UNIT/0.5 ML SYRINGE SQ PRN; MELOXICAM 7.5 MG TAB PO ONE; ONDANSETRON 4 MG/2 ML VIAL IVP PRN; TAMSULOSIN 0.4 MG CAP.ER.24H PO STA
[2022-09-17] MEDS: LACTATED RINGERS 1,000 ML IV SCH ×2 (07:45→20:12)
[2022-09-17] MEDS ORDERED: DEXAMETHASONE SOD PHOSPHATE 4 MG/ML 1 ML VIAL IVP ONE (07:57)
[2022-09-17] MEDS ORDERED: MIDAZOLAM 2 MG/2 ML VIAL IVP ONE (08:13)
[2022-09-17 08:14] LABS: ALT 27 U/L (4-49); AST 26 U/L (17-59); African American GFR (CKD) >90 (>60 ml/min/1.73 sqM); Albumin 4.4 g/dL (3.5-5.0); Alkaline Phosphatase 79 U/L (38-126); Anion Gap 7 mmol/L; Blood Urea Nitrogen 15 mg/dL (9-20); Calcium 8.8 mg/dL (8.4-10.2); Carbon Dioxide 26 mmol/L (22-30); Chloride 108 mmol/L (98-107); Glucose 96 mg/dL (74-99); Non-African American GFR(CKD) >90 (>60 ml/min/1.73 sqM); Potassium 4.2 mmol/L (3.5-5.1); Sodium 141 mmol/L (137-145); Total Bilirubin 0.5 mg/dL (0.2-1.3); Total Protein 7.1 g/dL (6.3-8.2)
[2022-09-17] MEDS ORDERED: BUPIVACAINE (PF) 0.25% 30 ML VIAL SQ ONE ×2 (09:06→09:57)
[2022-09-17] MEDS ORDERED: LABETALOL 5 MG/ML VIAL MDV ONE (09:14)
[2022-09-17] MEDS ORDERED: hydrALAZINE HCL 20 MG/ML 1 ML VIAL ONE (09:14)
[2022-09-17] MEDS ORDERED: LIDOCAINE 2% INJ 20 MG/ML (2 ML VIAL) ONE (09:14)
[2022-09-17] MEDS ORDERED: DEXAMETHASONE SOD PHOSPHATE 4 MG/ML 1 ML VIAL ONE (09:14)
[2022-09-17] MEDS ORDERED: HYDROmorphone (PF) 1 MG/ML ONE (09:14)
[2022-09-17] MEDS ORDERED: ROCURONIUM 10 MG/ML (5 ML VIAL) IV ONE (09:14)
[2022-09-17] MEDS ORDERED: ROPIVACAINE 5 MG/ML 30 ML VIAL ONE (09:14)
[2022-09-17] MEDS ORDERED: SODIUM CHLORIDE 0.9% (PF) 10 ML VIAL ONE (09:14)
[2022-09-17] MEDS ORDERED: SUCCINYLCHOLINE CHLORIDE 200 MG/10 ML VIAL IV ONE (09:14)
[2022-09-17] MEDS ORDERED: PROPOFOL 10 MG/ML 20 ML VIAL IV ONE (09:14)
[2022-09-17] MEDS ORDERED: fentaNYL (PF) 50 MCG/ML 2 ML AMP ONE (09:14)
[2022-09-17] MEDS ORDERED: GLYCOPYRROLATE 0.2 MG/ML 2 ML VIAL ONE (09:14)
[2022-09-17] MEDS ORDERED: NEOSTIGMINE 1 MG/ML 10 ML VIAL ONE (09:14)
[2022-09-17] MEDS: HYDROmorphone 0.5 MG/0.5 ML SYRINGE IVP PRN ×4 (12:16→16:00)
[2022-09-17] MEDS ORDERED: ALBUTEROL NEBULIZED 2.5 MG/3 ML INHALATION ONE (12:18)
[2022-09-17] MEDS ORDERED: NALOXONE 0.4 MG/ML 1 ML VIAL IV PRN (12:33)
[2022-09-17] MEDS ORDERED: ONDANSETRON 4 MG/2 ML VIAL IVP PRN (12:33)
[2022-09-17] MEDS ORDERED: TAMSULOSIN 0.4 MG CAP.ER.24H PO ONE (12:34)
--- NOTE | 2022-09-17 12:38 | P.PN ---
Progress Note - Text Progress Note Date: 09/17/22 Patient has moderate pelvic pressure including urinary retention. He has pre- existing chronic obstructive pulmonary disease and chronic narcotic use risk of oversedation, recommend overnight observation due to high pre-existing multiple comorbidities. contacted with findings with recommendation for overnight observation.
[2022-09-17] MEDS ORDERED: METOCLOPRAMIDE 10 MG TAB PO PRN (13:28)
--- NOTE | 2022-09-17 13:37 | P.OP ---
Date of Procedure: 09/17/22 Description of Procedure: SURGEON: SHANTELLE MARLEY MD PREOPERATIVE DIAGNOSES: 1. Initial right inguinal hernia with prior obstruction 2. Chronic obstructive pulmonary disease 3. Chronic back pain 4. Chronic opiate use to the chronic back pain 5. Depressive disorder 6. Generalized anxiety disorder POSTOPERATIVE DIAGNOSES: 1. Right inguinal hernia with incarceration, 4 x 3 cm 2. Chronic obstructive pulmonary disease 3. Chronic back pain 4. Chronic opiate use to the chronic back pain 5. Depressive disorder 6. Generalized anxiety disorder 7. Urinary retention OPERATION: 1. Robotic-assisted da Homero Xi laparoscopic incarcerated right inguinal hernia repair with mesh, 11.[address] ANESTHESIA: General, regional with local anesthetic ESTIMATED BLOOD LOSS: 5 mL. SPECIMENS REMOVED: Right inguinal hernia sac COMPLICATIONS: None. FINDINGS: 1. Nyhus type II direct inguinal hernia, irreducible, initial, 4 cm 2. Non-absorbable 2-0 VLOC used INDICATIONS: The patient is a 62-year-old gentleman who presents with history of right groin pain, swelling from incarcerated initial right inguinal hernia. Now presents for definitive surgical intervention. Laparoscopic versus open and robotic approaches were discussed. Benefits and risks including bleeding, infection, injury to the vas deferens as well as sterility and chronic groin pain were reviewed. Placement of mesh was also described. Informed consent was obtained. DESCRIPTION: In the preoperative area, the patient was marked with indelible marker along the inguinal hernia. The patient was brought to the operating room and initially laid in supine position. The abdomen had been prepped and draped in standard sterile fashion. Ioban draping was also placed. Prior to incision, a timeout protocol was confirmed with surgical team regarding patient's name including procedures to be performed and location along the right groin. Initial positioning for the robotic assisted ports were selected whereby 20 cm superior to the target anatomy, 0 degree 5 mm laparoscopic trocar entry was performed at the left upper quadrant. The abdomen was insufflated to 15 mmHg which he had tolerated well. Diagnostic laparoscopy demonstrated a indirect inguinal hernia along the right groin. Next, along the epigastrium, 8 mm robot trocar was placed. An 8-mm robotic trocar was placed under direct visualization at the right upper quadrant. An 8 mm port was placed at the left upper quadrant. All trocars were positioned between 8 to 10-cm apart from each other. An accessory trocar was placed on the right lateral abdominal wall 12 mm. The Dayak XI robot was primed, draped, prepared for docking along the right side of the patient. The patient was placed in Trendelenberg position 21-degrees. I then went to the Dayak Xi console. The preschool teacher assistant was at bedside for exchange of the robot arms and equipment. No hernia was identified along the left groin. The right inguinal hernia sac was evaginated whereby the peritoneum was scored using Endo scissors with caute ry. Bleeding was identified along the roof of the inguinal hernia requiring vessel sealer. Small hematoma was identified and controlled with pressure. Once completely reduced into the abdominal cavity, the peritoneal sac of the hernia was stripped along a direct inguinal hernia and sac was resected and then passed off for further pathological analysis. The size of the hernia defect was 4 x 3 cm with films obtained. Using a nonabsorbable2-0 VLOC, the peritoneal defect of the right inguinal hernia site was closed using a pursestring suture. The defect was found to be completely closed with complete reduction of the right direct inguinal hernia was confirmed. As an onlay, an 11.[address] mesh by [employer] was initially cut in half and entered into the abdominal cavity via the 8 mm trocar. The mesh was tacked to the pelvis using 2-0 VLOC 9-inch length sutures. The robot was undocked from the patient's bedside. I then rescrubbed into the case. A 12 trocar in the right lateral abdominal wall was oversewn using 0 Vicryl and Ananth Rodriguez. Insufflation was released from the abdominal cavity and all instruments were removed from the abdominal cavity. The rest of incisions were reapproximated using 4-0 Monocryl in a running subcuticular fashion. Incisions were cleansed using dilute hydrogen peroxide. Liquid glue was applied to the skin. At the end of the procedure, the needle, sponge and instrument counts had been verified correct by the rn medical surgical. The patient had tolerated the procedure well and was taken to the postanesthesia care unit in stable condition. Due to identified urinary retention intraoperatively including chronic back pain and chronic obstructive pulmonary disease, he is high risk for oversedation from narcotics. notified for overnight observation advised. Plan - Discharge Summary Discharge Rx Participant: No New Discharge Prescriptions: No Action ARIPiprazole [Abilify] 5 mg PO HS Umeclidinium Brm/Vilanterol Tr [Anoro Ellipta 62.5-25 Mcg INH] 1 puff INHALATION RT-DAILY Ibuprofen [Motrin] 800 mg PO Q8H PRN PRN Reason: Pain buPROPion XL [Wellbutrin XL] 150 mg PO QAM Metoclopramide [Reglan] 10 mg PO Q6H PRN #15 tab PRN Reason: Nausea And Vomiting HYDROcodone/APAP 10-325MG [[place] 10-325] 1 tab PO TID PRN PRN Reason: Pain Ondansetron [Zofran] 4 mg PO Q8HR PRN #15 tab PRN Reason: Nausea And Vomiting Discharge Medication List ARIPiprazole [Abilify] 5 mg PO HS 12/10/19 [History] Ondansetron [Zofran] 4 mg PO Q8HR PRN #15 tab 06/28/22 [Rx] Ibuprofen [Motrin] 800 mg PO Q8H PRN 07/06/22 [History] Metoclopramide [Reglan] 10 mg PO Q6H PRN #15 tab 07/06/22 [Rx] Umeclidinium Brm/Vilanterol Tr [Anoro Ellipta 62.5-25 Mcg INH] 1 puff INHALATION RT-DAILY 07/06/22 [History] buPROPion XL [Wellbutrin XL] 150 mg PO QAM 07/06/22 [History] HYDROcodone/APAP 10-325MG [[place] 10-325] 1 tab PO TID PRN 09/14/22 [History]
[2022-09-17] MEDS ORDERED: LACTATED RINGERS 1,000 ML IV ONE (16:30)
[2022-09-17] MEDS ORDERED: ACETAMINOPHEN IV (For NPO) 1,000 MG in EMPTY BAG 1 BAG IVPB ONE (17:00)
[2022-09-17] MEDS: HYDROcodone/APAP 10-325MG 1 EACH TAB PO PRN (17:44)
[2022-09-17] MEDS: SODIUM CHLORIDE 0.9% 1,000 ML IV SCH (18:01)
[2022-09-17] MEDS: TAMSULOSIN 0.4 MG CAP.ER.24H PO SCH (20:09)
[2022-09-17] MEDS: HYDROmorphone 1 MG/ML 1 ML SYRINGE IVP PRN ×2 (20:09→23:21)
[2022-09-17] MEDS: ARIPiprazole 5 MG TAB PO SCH (20:09)
[2022-09-18] MEDS: SODIUM CHLORIDE 0.9% 1,000 ML IV SCH ×3 (02:00→20:16)
[2022-09-18] MEDS: HYDROmorphone 1 MG/ML 1 ML SYRINGE IVP PRN ×5 (02:46→20:14)
[2022-09-18] MEDS: IPRATROPIUM 0.5 MG/2.5 ML NEBU INHALATION SCH ×4 (08:14→20:31)
[2022-09-18] MEDS: FORMOTEROL FUMARATE 20 MCG/2 ML NEBU INHALATION SCH ×2 (08:14→20:31)
[2022-09-18] MEDS: PANTOPRAZOLE 40 MG/10 ML VIAL IV SCH (08:35)
[2022-09-18] MEDS: buPROPion XL 150 MG TAB.ER.24H PO SCH (08:36)
[2022-09-18] MEDS: TAMSULOSIN 0.4 MG CAP.ER.24H PO SCH ×2 (08:36→20:15)
[2022-09-18] MEDS: HYDROcodone/APAP 10-325MG 1 EACH TAB PO PRN (08:37)
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
[2022-09-18] MEDS ORDERED: MAGNESIUM HYDROXIDE 2,400 MG/30 ML CUP PO PRN (14:38)
[2022-09-18] MEDS ORDERED: LACTULOSE 20 GM/30 ML CUP PO ONE ×2 (14:38→14:49)
[2022-09-18] MEDS ORDERED: SIMETHICONE 40 MG/0.6 ML DROPS 2,000 MG/30 ML BOTTLE PO SCH (14:45)
[2022-09-18] MEDS ORDERED: MAGNESIUM HYDROXIDE 2,400 MG/30 ML CUP PO STA (15:22)
--- NOTE | 2022-09-18 15:23 | P.PN ---
Subjective Progress Note Date: 09/18/22 Patient complains of moderate pelvic pressure including gas pains. Simethicone and lactulose prescribed for bowel movement. Avoidance of constipation and bearing down described as to decrease risk of internal bleeding from recent hernia surgery. Patient reports urinary retention and improved after removal of Ramos catheter were Flomax. Tolerating regular diet. Discharge pending improvement of abdominal pain with resolution of constipation. Objective - Vital Signs Vital signs: Vital Signs Temp 98.3 F 09/18/22 14:57 Pulse 71 09/18/22 14:57 Resp 18 09/18/22 14:57 BP 153/86 09/18/22 14:57 Pulse Ox 95 09/18/22 14:57 FiO2 Intake & Output 09/17/22 09/18/22 09/18/22 18:59 06:59 18:59 Intake Total 1550 236 Output Total 1970 2295 Balance -420 -2295 236 Weight 92 kg Intake: IV 1550 Oral 236 Output: Urine 1949 2295 Estimated Blood Loss 20 Other: Voiding Method Toilet # Voids 6 - Labs CBC & Chem 7: 09/17/22 07:45
[2022-09-18] MEDS: SIMETHICONE 80 MG CHEWABLE PO SCH ×2 (15:24→20:16)
[2022-09-18] MEDS: LACTATED RINGERS 1,000 ML IV SCH (17:11)
[2022-09-18] MEDS: ARIPiprazole 5 MG TAB PO SCH (20:15)
[2022-09-18 22:43] VITALS: RESP 16
[2022-09-19] MEDS: HYDROmorphone 1 MG/ML 1 ML SYRINGE IVP PRN ×3 (00:50→12:29)
[2022-09-19] MEDS: HYDROcodone/APAP 10-325MG 1 EACH TAB PO PRN ×2 (05:20→14:42)
[2022-09-19] MEDS: FORMOTEROL FUMARATE 20 MCG/2 ML NEBU INHALATION SCH (08:00)
[2022-09-19] MEDS: IPRATROPIUM 0.5 MG/2.5 ML NEBU INHALATION SCH ×2 (08:00→11:56)
[2022-09-19] MEDS: buPROPion XL 150 MG TAB.ER.24H PO SCH (08:17)
[2022-09-19] MEDS: TAMSULOSIN 0.4 MG CAP.ER.24H PO SCH (08:17)
[2022-09-19] MEDS: SIMETHICONE 80 MG CHEWABLE PO SCH (08:17)
[2022-09-19] MEDS: PANTOPRAZOLE 40 MG/10 ML VIAL IV SCH (08:17)
[2022-09-19] MEDS ORDERED: DOCUSATE 100 MG CAP PO PRN (11:10)
--- NOTE | 2022-09-19 11:43 | P.PN ---
Subjective 09/18/2022 This is a 62-year-old male patient of my partner. He has swelling and pain along the right groin. It's been increasing lately. He underwent a robotic- assisted laparoscopic hernia one day ago. Today he is feeling better. A Ramos catheter to this morning. There was some urinary retention initially after discontinuation, this is resolved. He denies any chest pains, pressures, shortness of breath, nausea, vomiting, diarrhea, or constipation. No headaches or fatigue. He is on Wellbutrin and Abilify for mood, hydrocodone for back pain at home, and no oral for COPD. He smokes one pack a day. For consult medical management. He does have hydrocodone at home for his back pain. He needs it sporadically but indicates worsening now from lying around for the past day. He denies any radiculopathy symptoms at this time.. 09/19/2022: Patient is postop day #2 from robotic-assisted laparoscopic hernia repair. After I'd seen him in the experiencing increased abdominal pain. Surgery did not discharge him but with lactulose and milk of magnesia and he has pain medication hydrocodone ordered. Vital signs remained stable. He denies any chest pains pressures or shortness of breath nausea vomiting. Back pain is slightly better, but not at baseline Objective - Vital Signs Vital signs: Vital Signs Temp 98.0 F 09/19/22 07:25 Pulse 74 09/19/22 07:25 Resp 16 09/19/22 07:25 BP 148/75 09/19/22 07:25 Pulse Ox 95 09/19/22 00:49 FiO2 Intake & Output 09/18/22 09/19/22 09/19/22 18:59 06:59 18:59 Intake Total 236 118 Balance 236 118 Intake: Oral 236 118 Other: Voiding Method Toilet Toilet # Voids 6 2 - Exam GENERAL: Well-appearing, well-nourished and in no acute distress. He is standing and ambulating in his room. NECK: supple without lymphadenopathy or JVD, no thyromegaly LUNGS: Breath sounds clear to auscultation bilaterally and equal. No wheezes rales or rhonchi. HEART: Regular rate and rhythm without murmurs, rubs or gallops.S1S2 Normal ABDOMEN: Soft,normoactive bowel sounds. No guarding, no rebound. No masses appreciated. Groin was not examined due to his recent surgery, he has minimal abdominal tenderness and slight distention. EXTREMITIES: Normal range of motion, no pitting or edema. No clubbing or cyanosis. NEUROLOGICAL: Cranial nerves II through XII grossly intact. Normal speech, normal gait. PSYCH: Normal mood, normal affect. SKIN: Warm, Dry, normal turgor, no rashes or lesions noted. - Labs CBC & Chem 7: 09/17/22 07:45 Assessment and Plan (1) S/P hernia repair Current Visit: Yes Status: Acute Code(s): Z98.890 - OTHER SPECIFIED POSTPROCEDURAL STATES; Z87.19 - PERSONAL HISTORY OF OTHER DISEASES OF THE DIGESTIVE SYSTEM SNOMED Code(s): 35157127432644 (2) Chronic low back pain Current Visit: Yes Status: Acute Code(s): M54.50 - LOW BACK PAIN, UNSP ECIFIED; G89.29 - OTHER CHRONIC PAIN SNOMED Code(s): 769253978 (3) Anxiety Current Visit: Yes Status: Acute Code(s): F41.9 - ANXIETY DISORDER, UNSPECIFIED SNOMED Code(s): 34479321 (4) Moderate recurrent major depression Current Visit: Yes Status: Acute Code(s): F33.1 - MAJOR DEPRESSIVE DISORDER, RECURRENT, MODERATE SNOMED Code(s): 729594785 (5) Cervical pain Current Visit: Yes Status: Acute Code(s): M54.2 - CERVICALGIA SNOMED Code(s): 68149533 (6) COPD (chronic obstructive pulmonary disease) Current Visit: Yes Status: Acute Code(s): J44.9 - CHRONIC OBSTRUCTIVE PULMONARY DISEASE, UNSPECIFIED SNOMED Code(s): 69886741 (7) Constipation Current Visit: Yes Status: Acute Code(s): K59.00 - CONSTIPATION, UNSPECIFIED SNOMED Code(s): 81429256 Plan: He will continue his current medications and laxatives milk of magnesia large been ordered. We'll add Colace to this. Continue his other home medications. He is cleared for discharge once he has a bowel movement per medicine. He'll resume his home medications as ordered. He'll follow-up in the office in 1-2 weeks.
[2022-09-19 15:16] VITALS: BP 137/72; PULSE 69; TEMP 98.3
--- NOTE | 2022-09-19 18:04 | P.ANPRN ---
Procedure Note - Anesthesia - Nerve Block Performed Bilateral Erector Spinae Single Time Out Performed: Yes Date of Procedure: 09/17/22 Procedure Start Time: 08:12 Procedure Stop Time: :19 Location of Patient: PreOp Indication: Acute Post-Operative Pain, Requested by Surgeon Sedation Type: Sedate with meaningful contact maintained Preparation: Sterile Prep Position: Prone Needle Types: Pajunk Needle Gauge: 21 Ultrasound used to visualize needle placement: Yes Ultrasound used to observe medication spread: Yes Blood Aspirated: No Pain Paresthesia on Injection Noted: No Resistance on Injection: Normal Image Stored and Saved: Yes Events: Uneventful and Well Tolerated (Ropivacaine 0.5% 15 mL plus normal saline 10cc plus dexamethasone 4 mg given bilaterally at L1)
--- NOTE | 2022-09-19 22:52 | P.DS ---
Providers Date of admission: 09/17/22 Expected date of discharge: 09/19/22 Attending physician: Marlene Blanca Consults: 09/17/22 07:04 Consult Physician Routine Consulting Provider: [facility] Consult Reason/Comments: Regional block Do you want consulting provider notified?: Yes 09/17/22 13:29 Consult Physician Routine Consulting Provider: Elvis Hoffmann Jr Consult Reason/Comments: Medical management Do you want consulting provider notified?: Yes Primary care physician: Elvis Hoffmann [facility] Course: Patient admitted for urinary retention including uncontrolled postoperative pain following history of chronic back pain. He is tolerating diet. He is voiding spontaneously. Pain improved. Patient was stable for discharge. Patient Condition at Discharge: Good Plan - Discharge Summary Discharge Rx Participant: No New Discharge Prescriptions: New Acetaminophen Tab [Tylenol Tab] 1,000 mg PO Q6HR PRN #30 tablet PRN Reason: Pain Simethicone [Gas-X] 125 mg PO AC-TID PRN #20 capsule PRN Reason: Pain Continue ARIPiprazole [Abilify] 5 mg PO HS Umeclidinium Brm/Vilanterol Tr [Anoro Ellipta 62.5-25 Mcg INH] 1 puff INHALATION RT-DAILY Ibuprofen [Motrin] 800 mg PO Q8H PRN PRN Reason: Pain buPROPion XL [Wellbutrin XL] 150 mg PO QAM Metoclopramide [Reglan] 10 mg PO Q6H PRN #15 tab PRN Reason: Nausea And Vomiting HYDROcodone/APAP 10-325MG [[place] 10-325] 1 tab PO TID PRN PRN Reason: Pain Ondansetron [Zofran] 4 mg PO Q8HR PRN #15 tab PRN Reason: Nausea And Vomiting Discharge Medication List ARIPiprazole [Abilify] 5 mg PO HS 12/10/19 [History] Ondansetron [Zofran] 4 mg PO Q8HR PRN #15 tab 06/28/22 [Rx] Ibuprofen [Motrin] 800 mg PO Q8H PRN 07/06/22 [History] Metoclopramide [Reglan] 10 mg PO Q6H PRN #15 tab 07/06/22 [Rx] Umeclidinium Brm/Vilanterol Tr [Anoro Ellipta 62.5-25 Mcg INH] 1 puff INHALATION RT-DAILY 07/06/22 [History] buPROPion XL [Wellbutrin XL] 150 mg PO QAM 07/06/22 [History] HYDROcodone/APAP 10-325MG [[place] 10-325] 1 tab PO TID PRN 09/14/22 [History] Acetaminophen Tab [Tylenol Tab] 1,000 mg PO Q6HR PRN #30 tablet 09/19/22 [Rx] Simethicone [Gas-X] 125 mg PO AC-TID PRN #20 capsule 09/19/22 [Rx] Follow up Appointment(s)/Referral(s): Marlene Blanca MD [STAFF PHYSICIAN] - 09/21/22 (TELEHEALTH) Patient Instructions/Handouts: Laparoscopic Herniorrhaphy (IP) Activity/Diet/Wound Care/Special Instructions: Using antibacterial soap. No lifting over 4 pounds 4 weeks, October 17July shower. No bathtub soaks for 2 weeks, October 01 Use ice along incisions for today to prevent swelling. Take tylenol, aleve/ibuprofen, simethicone scheduled for 3 days for best pain relief Discharge Disposition: HOME SELF-CARE
--- NOTE | 2022-09-22 20:16 | P.PN ---
Progress Note - Text Progress Note Date: 09/22/22 Patient contacted at home. Reports doing well. He had a bowel movement. No recurrent hernia. Follow-up as needed.
== END 2022-09-19 15:36 | disposition home or self-care (01) ==
LOC: OR 07:07 → 6NMEDSUR 16:20 → OR 09-19 15:36
PROVIDERS: ATTEND Surgery Plastic and Reconstructive Surgery
DX: K40.30 Unilateral inguinal hernia, with obstruction, without gangrene, not specified as recurrent (principal); J44.9 Chronic obstructive pulmonary disease, unspecified; G89.29 Other chronic pain; G89.18 Other acute postprocedural pain; Z79.891 Long term (current) use of opiate analgesic; F41.1 Generalized anxiety disorder; F32.A Depression, unspecified; Z87.81 Personal history of (healed) traumatic fracture; Z87.19 Personal history of other diseases of the digestive system; Z79.899 Other long term (current) drug therapy; Z79.1 Long term (current) use of non-steroidal anti-inflammatories (NSAID); Z79.51 Long term (current) use of inhaled steroids
CPT/HCPCS: 49650; S2900; 64999; 80053; 88302; 94640

== ENCOUNTER → 2022-09-30 | Outpatient (CLI) | payer MEDICARE, OTHER ==
--- NOTE | 2022-09-30 14:50 | CT ---
EXAMINATION TYPE: CT chest w con CT DLP: 368.4 mGycm, Automated exposure control for dose reduction was used. DATE OF EXAM: 09/30/2022 2:23 PM COMPARISON: CT 12/30/2021. CLINICAL INDICATION:Male, 62 years old with history of R91.1 SOLITARY PULMONARY NODULE; PHH, nodules TECHNIQUE: Multiple axial images were obtained through the chest. Sagittal and coronal reformats were created for review. Contrast used:100 mL of Isovue 300 with IV Contrast (None if empty) Oral contrast used: (None if empty) FINDINGS: LUNGS/ PLEURA: Stable appearance of right upper lung nodule best appreciated on sagittal imaging on this exam at the bifurcation of bronchovascular bundle measuring 4 mm when excluding the vasculature. This is not sig nificantly changed from 12/30/2021 and new from 2019. No new pulmonary nodules. No focal consolidation , pneumothorax or pleural effusion. AIRWAY: Patent and unremarkable. HEART: Size within normal limits. MEDIASTINUM: No gross evidence of adenopathy. VASCULATURE: Atherosclerotic calcifications are present throughout the aorta and its branches. MUSCULOSKELETAL: Moderate disc degeneration changes are present throughout the thoracolumbar spine. SOFT TISSUES/LYMPH NODES: Mild gynecomastia changes bilaterally. LOWER NECK: No significant findings. UPPER ABDOMEN: No significant findings. IMPRESSION: Stable right upper lung lower portion nodular density at the bifurcation of the bronchovascular bundl e. Not definitively seen on 2019 exam. This is not significantly changed from 12/30/2021. Continued fo llow-up surveillance in one year recommended.
== END | disposition home or self-care (01) ==
LOC: RADCTMAIN 14:02
PROVIDERS: ATTEND Internal Medicine Critical Care Medicine
DX: R91.8 Other nonspecific abnormal finding of lung field (principal)
CPT/HCPCS: 71260; Q9967

== ENCOUNTER 2023-04-03 08:12 | Emergency (ER) | payer MEDICARE, OTHER ==
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
[2023-04-03 08:40] VITALS: TEMP 98.4
[2023-04-03 08:53] LABS: Basophils % (A) 0 %; Eosinophils % (A) 0 %; HCT 48.1 % (39.0-53.0); HGB 16.6 gm/dL (13.0-17.5); Lymphocytes # (A) 1.4 k/uL (1.0-4.8); Lymphocytes % (A) 17 %; MCH 30.7 pg (25.0-35.0); MCHC 34.5 g/dL (31.0-37.0); MCV 89.1 fL (80.0-100.0); Mean Platelet Volume 7.8; Monocytes # (A) 0.2 k/uL (0-1.0); Monocytes % (A) 3 %; Neutrophils # (A) 6.4 k/uL (1.3-7.7); Neutrophils % (A) 78 %; Platelet Count 230 k/uL (150-450); RDW 12.5 % (11.5-15.5); WBC 8.2 k/uL (3.8-10.6)
[2023-04-03 09:02] LABS: ALT 26 U/L (4-49); AST 30 U/L (17-59); African American GFR (CKD) >90 (>60 ml/min/1.73 sqM); Albumin 4.8 g/dL (3.5-5.0); Alkaline Phosphatase 95 U/L (38-126); Amylase 56 U/L (30-110); Anion Gap 13 mmol/L; Blood Urea Nitrogen 19 mg/dL (9-20); Calcium 9.7 mg/dL (8.4-10.2); Carbon Dioxide 23 mmol/L (22-30); Chloride 103 mmol/L (98-107); Glucose 119 mg/dL (74-99); Lipase 77 U/L (23-300); Non-African American GFR(CKD) >90 (>60 ml/min/1.73 sqM); Sodium 139 mmol/L (137-145); Total Bilirubin 0.7 mg/dL (0.2-1.3); Total Protein 7.9 g/dL (6.3-8.2)
[2023-04-03] MEDS ORDERED: HYDROmorphone 1 MG/ML 1 ML SYRINGE IM STA (11:19)
[2023-04-03 11:56] LABS: Appearance,Urine Clear (Clear); Bilirubin,Urine Negative (Negative); Blood,Urine Negative (Negative); Color,Urine Yellow; Glucose,Urine (UA) Negative (Negative); Ketones,Urine 2+ (Negative); Leukocyte Esterase,Urine Negative (Negative); Mucus,Urine Many /hpf; Nitrite,Urine Negative (Negative); PH, Urine 5.5 (5.0-8.0); Protein,Urine 1+ (Negative); RBC,Urine 1 /hpf (0-5); Specific Gravity,Urine 1.037 (1.001-1.035); Urobilinogen,Urine <2.0 mg/dL (<2.0); WBC,Urine 2 /hpf (0-5)
[2023-04-03] MEDS ORDERED: SODIUM CHLORIDE 0.9% 1,000 ML IV ONE (12:02)
[2023-04-03] MEDS ORDERED: HYDROmorphone 0.5 MG/0.5 ML SYRINGE IVP STA (12:22)
[2023-04-03 14:32] VITALS: BP 134/80; PULSE 66; RESP 18
== END 2023-04-03 14:22 | disposition home or self-care (01) ==
LOC: EC 08:12
DX: G89.29 Other chronic pain (principal); M54.50 Low back pain, unspecified; R00.1 Bradycardia, unspecified; J44.9 Chronic obstructive pulmonary disease, unspecified; F12.90 Cannabis use, unspecified, uncomplicated; F17.200 Nicotine dependence, unspecified, uncomplicated; F32.A Depression, unspecified; Z79.899 Other long term (current) drug therapy
CPT/HCPCS: 36415; 93005; 80053; 82150; 83605; 83690; 84484; 85025; 81001; 99284; 96374; 96361 ×2; 96372; J1170 ×2

== ENCOUNTER → 2023-10-06 | Outpatient (CLI) | payer MEDICARE, OTHER ==
--- NOTE | 2023-10-06 23:24 | CT ---
"EXAMINATION TYPE: CT chest w con DATE OF EXAM: 10/06/2023 COMPARISON: 09/30/2022 HISTORY: pulmonary nodule CT DLP: 687 mGycm, Automated exposure control for dose reduction was used. CONTRAST: Performed injected with 100 mL of Isovue 300. TECHNIQUE: Axial images were obtained at 5 mm thick sections. Reconstructed images are reviewed on [employer] computer in the coronal plane. FINDINGS: Portion of the thyroid visualized is normal. There is a 1.0 cm nodule within the periphery of the right midlung mass and mild spiculated margins. This has increased in size over the interval. PET/CT recommended for additional workup for neoplasm. No enlarged mediastinal or hilar adenopathy is evident. The ascending aorta diameter at the level o f the main pulmonary artery is 3.6 cm. The main pulmonary artery diameter at the bifurcation is 2.[address] sections are obtained through the upper abdomen. Abdomen is essentially unremarkable. IMPRESSION: 1. Suspicious solitary pulmonary nodule currently measuring 1.0 cm, enlarged from prior study. PET CT recommended for additional workup for neoplasm. A Yellow level critical message alert has been initiated for Peirce Lynn DO via the [employer] 36 0 | Critical Results System on 10/06/2023 11:22 PM. This message alert has been sent to Pierce Lynn DO via the preferences provided by the clinician for the receipt of Radiology Critical Findings. [id number] ID [id number]."
== END | disposition home or self-care (01) ==
LOC: RADCTMAIN 08:41
PROVIDERS: ATTEND Internal Medicine Critical Care Medicine
DX: R91.1 Solitary pulmonary nodule (principal)
CPT/HCPCS: 71260; Q9967

== ENCOUNTER → 2023-11-03 | Outpatient (CLI) | payer MEDICARE, OTHER ==
--- NOTE | 2023-12-02 13:25 | PE ---
Patient: Brian Francis R Ordering Physician: Unknown, Unknown ID: [id number] Phone, Pager: Phone: N/A Pager: N/A : [phone] Age/Gender: 63Y, M Primary Location: N/A Procedure: PETCT SKULL TO THIG H Study Date: 11/03/2023 9:18:56 AM EXAMINATION TYPE: PET CT fusion skull to thigh DATE OF EXAM: 11/17/2023 CLINICAL INDICATION: Solid pulmonary nodule TECHNIQUE: Following the intravenous administration of 11.3 mCi of F-18 FDG, whole body images are performed from the skull base to the midthigh. Images are reviewed on the computer in the coronal, a xial, and sagittal planes. Reconstructed rotating images are created on independent workstation and reviewed on the computer. A non-contrast CT is performed in conjunction with the PET scan. Glucose level 97 mg/dL CT DLP: 693 mGycm, Automated exposure control for dose reduction was used. COMPARISON: CT None, PET/CT 01/02/2022, MRI: None FINDINGS: Mediastinal SUV mean is 2.33. Hepatic parenchyma SUV mean is 2.85. SKULL BASE AND NECK: No suspicious radiotracer activity. CHEST, MEDIASTINUM, AND HILAR REGION: Right upper lung pulmonary nodule with spiculation measuring 11 mm previously millimeters and Max SUV 4.8, previously 0.8. ABDOMEN AND PELVIS: No suspicious radiotracer activity. MUSCULOSKELETAL STRUCTURES: No suspicious radiotracer activity. OTHER CT: Mild bilateral gynecomastia. Moderate amount of stool. The appendix is normal. Scattered co lonic diverticula. Prostatomegaly. Right fat-containing inguinal hernia. IMPRESSION: Increased Size and metabolic activity of right upper lung nodule concerning for malignancy.
== END | disposition home or self-care (01) ==
LOC: RADPETMAIN 08:06
PROVIDERS: ATTEND Internal Medicine Critical Care Medicine
DX: R91.1 Solitary pulmonary nodule (principal); N62 Hypertrophy of breast; K57.30 Diverticulosis of large intestine without perforation or abscess without bleeding; K40.90 Unilateral inguinal hernia, without obstruction or gangrene, not specified as recurrent
CPT/HCPCS: 78815; A9552

== ENCOUNTER 2023-11-24 15:40 | Emergency (ER) | payer MEDICARE, OTHER ==
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
[2023-11-24 16:31] VITALS: RESP 18; TEMP 98
[2023-11-24 18:57] LABS: Appearance,Urine Clear (Clear); Bilirubin,Urine Negative (Negative); Blood,Urine Trace (Negative); Color,Urine Light Yellow; Glucose,Urine (UA) Trace (Negative); Ketones,Urine 2+ (Negative); Leukocyte Esterase,Urine Negative (Negative); Mucus,Urine Few /hpf; Nitrite,Urine Negative (Negative); PH, Urine 5.5 (5.0-8.0); Protein,Urine Trace (Negative); RBC,Urine 1 /hpf (0-5); Specific Gravity,Urine 1.025 (1.001-1.035); Squamous Epithelial Cell,Urine <1 /hpf (0-4); Urobilinogen,Urine <2.0 mg/dL (<2.0); WBC,Urine 2 /hpf (0-5)
[2023-11-24] MEDS: SODIUM CHLORIDE 0.9% 1,000 ML IV STA (19:12)
[2023-11-24 19:38] LABS: Basophils % (A) 0 %; Eosinophils % (A) 0 %; HGB 17.1 gm/dL (13.0-17.5); Lymphocytes # (A) 1.1 k/uL (1.0-4.8); Lymphocytes % (A) 16 %; MCHC 33.5 g/dL (31.0-37.0); MCV 89.6 fL (80.0-100.0); Mean Platelet Volume 7.7; Monocytes # (A) 0.2 k/uL (0-1.0); Monocytes % (A) 3 %; Neutrophils # (A) 5.6 k/uL (1.3-7.7); Neutrophils % (A) 81 %; Platelet Count 235 k/uL (150-450); RDW 12.7 % (11.5-15.5); WBC 6.9 k/uL (3.8-10.6)
[2023-11-24] MEDS: MORPHINE SULFATE 4 MG/ML SYRINGE IVP STA ×2 (19:41→21:21)
[2023-11-24] MEDS: ONDANSETRON 4 MG/2 ML VIAL IVP STA (19:41)
[2023-11-24 19:48] LABS: ALT 26 U/L (4-49); African American GFR (CKD) >90 (>60 ml/min/1.73 sqM); Anion Gap 8 mmol/L; Blood Urea Nitrogen 15 mg/dL (9-20); Calcium 9.4 mg/dL (8.4-10.2); Carbon Dioxide 22 mmol/L (22-30); Chloride 108 mmol/L (98-107); Lipase 57 U/L (23-300); Non-African American GFR(CKD) >90 (>60 ml/min/1.73 sqM); Sodium 138 mmol/L (137-145)
[2023-11-24 20:20] LABS: AST 39 U/L (17-59); Alkaline Phosphatase 73 U/L (38-126); Glucose 111 mg/dL (74-99); Potassium 6.2 mmol/L (3.5-5.1); Total Bilirubin 1.3 mg/dL (0.2-1.3); Total Protein 8.2 g/dL (6.3-8.2)
[2023-11-24] MEDS: METOCLOPRAMIDE 5 MG/ML 2 ML VIAL IVP STA (21:21)
[2023-11-24 23:00] LABS: ALT 22 U/L (4-49); AST 24 U/L (17-59); African American GFR (CKD) >90 (>60 ml/min/1.73 sqM); Albumin 3.9 g/dL (3.5-5.0); Alkaline Phosphatase 67 U/L (38-126); Anion Gap 5 mmol/L; Blood Urea Nitrogen 14 mg/dL (9-20); Calcium 8.8 mg/dL (8.4-10.2); Carbon Dioxide 23 mmol/L (22-30); Chloride 109 mmol/L (98-107); Glucose 118 mg/dL (74-99); Non-African American GFR(CKD) >90 (>60 ml/min/1.73 sqM); Potassium 3.8 mmol/L (3.5-5.1); Sodium 137 mmol/L (137-145); Total Bilirubin 0.6 mg/dL (0.2-1.3); Total Protein 6.4 g/dL (6.3-8.2)
[2023-11-25 00:11] VITALS: BP 119/69; PULSE 70
== END 2023-11-25 00:08 | disposition home or self-care (01) ==
LOC: EC 15:40
CPT/HCPCS: 36415; 80053; 81001; 83605; 83690; 84484; 85025; 87636; 93005; 96374; 96375; 96376; 99284

== ENCOUNTER 2023-11-26 10:14 | Emergency (ER) | payer MEDICARE, OTHER ==
[2023-11-26 10:21] VITALS: TEMP 97.5
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
[2023-11-26] MEDS: SODIUM CHLORIDE 0.9% 1,000 ML IV STA ×2 (11:36→14:38)
[2023-11-26] MEDS: METOCLOPRAMIDE 5 MG/ML 2 ML VIAL IVP STA (11:36)
[2023-11-26] MEDS: KETOROLAC 15 MG/ML 1 ML VIAL IVP STA ×2 (11:37→13:17)
[2023-11-26 12:03] LABS: ALT 25 U/L (4-49); AST 31 U/L (17-59); African American GFR (CKD) >90 (>60 ml/min/1.73 sqM); Albumin 4.5 g/dL (3.5-5.0); Alkaline Phosphatase 73 U/L (38-126); Anion Gap 6 mmol/L; Blood Urea Nitrogen 21 mg/dL (9-20); Calcium 9.4 mg/dL (8.4-10.2); Carbon Dioxide 27 mmol/L (22-30); Chloride 106 mmol/L (98-107); Glucose 122 mg/dL (74-99); Lipase 80 U/L (23-300); Non-African American GFR(CKD) 88 (>60 ml/min/1.73 sqM); Sodium 139 mmol/L (137-145); Total Bilirubin 0.8 mg/dL (0.2-1.3); Total Protein 7.1 g/dL (6.3-8.2)
[2023-11-26 12:06] LABS: Basophils % (A) 0 %; Eosinophils % (A) 1 %; HCT 46.9 % (39.0-53.0); HGB 15.9 gm/dL (13.0-17.5); Lymphocytes # (A) 1.2 k/uL (1.0-4.8); Lymphocytes % (A) 14 %; MCH 30.1 pg (25.0-35.0); MCHC 33.9 g/dL (31.0-37.0); MCV 88.7 fL (80.0-100.0); Mean Platelet Volume 8.3; Monocytes # (A) 0.3 k/uL (0-1.0); Monocytes % (A) 3 %; Neutrophils # (A) 6.9 k/uL (1.3-7.7); Neutrophils % (A) 81 %; Platelet Count 198 k/uL (150-450); RBC 5.29 m/uL (4.30-5.90); RDW 12.8 % (11.5-15.5); WBC 8.6 k/uL (3.8-10.6)
[2023-11-26 12:45] LABS: Appearance,Urine Clear (Clear); Bilirubin,Urine Negative (Negative); Blood,Urine Negative (Negative); Color,Urine Yellow; Glucose,Urine (UA) Trace (Negative); Ketones,Urine Negative (Negative); Leukocyte Esterase,Urine Negative (Negative); Nitrite,Urine Negative (Negative); Protein,Urine Trace (Negative); Specific Gravity,Urine 1.028 (1.001-1.035); Urobilinogen,Urine <2.0 mg/dL (<2.0)
--- NOTE | 2023-11-26 12:56 | CT ---
EXAMINATION TYPE: CT abdomen pelvis wo con DATE OF EXAM: 11/26/2023 COMPARISON: 08/08/2022 INDICATION: Right flank pain, kidney stone suspected DLP: 662 mGycm, Automated exposure control for dose reduction was used. CONTRAST: 0 mL of Isovue 300. Study performed without Oral Contrast TECHNIQUE: Axial images were obtained from above the diaphragm to the pubic rami in the axial plane a t 5 mm thick sections. Reconstructed images are reviewed on the computer in the coronal plane. FINDINGS: Limited CT sections are obtained the lung bases. The lung bases are clear. CT ABDOMEN: Liver: Normal Spleen: Normal Pancreas: Normal Adrenal glands: The adrenal glands are normal. Gallbladder: Normal Kidneys: No masses are evident. No hydronephrosis is present. No cysts are present. No renal or ur eteral stones evident. Very subtle perinephric stranding may be present. Consider pyelonephritis. No hydroureter is evident. No stones are evident. Aorta: Vascular calcification is within the aorta. Inferior vena cava: Normal. CT PELVIS: Loops of bowel within the abdomen and pelvis are normal. Diverticulosis is present. Sigmoid colon. No acute adjacent inflammatory changes to suggest diverticulitis. There are loops of bowel which are incompletely distended or lack oral contrast limiting their evaluation. Appendix: Normal as visualized. No adjacent inflammatory changes Urinary bladder: Normal. No bladder calcifications Genitourinary structures: Prostate is normal Osseous structures: No suspicious lytic or sclerotic lesions. IMPRESSION: 1. Very subtle perinephric inflammatory change on the right may be present. Consider pyelonephritis. 2. No renal or ureteral stones evident. No hydronephrosis or hydroureter. 3. Appendix as visualized and appears normal rate 4. Diverticulosis without acute diverticulitis.
[2023-11-26] MEDS: ONDANSETRON 4 MG/2 ML VIAL IVP STA (14:38)
[2023-11-26] MEDS: MORPHINE SULFATE 4 MG/ML SYRINGE IVP STA (15:31)
[2023-11-26 16:27] VITALS: BP 167/94; PULSE 52; RESP 18
== END 2023-11-26 16:27 | disposition home or self-care (01) ==
LOC: EC 10:14
DX: R11.10 Vomiting, unspecified
CPT/HCPCS: 36415; 74176; 80053; 81003; 83605; 83690; 84484; 85025; 93005; 96361; 96374; 96375; 96376; 99284

== ENCOUNTER → 2023-12-20 | Outpatient (CLI) | payer MEDICARE, OTHER ==
[2023-12-20 11:19] LABS: INR 0.9 (<1.2)
[2023-12-20 11:20] LABS: Partial Thromboplastin Time 23.6 sec (22.0-30.0); Prothrombin Time 9.9 sec (10.0-12.5)
[2023-12-20 15:21] LABS: Appearance,Urine Clear (Clear); Bilirubin,Urine Negative (Negative); Blood,Urine Negative (Negative); Color,Urine Yellow (Yellow); Ketones,Urine Negative (Negative); Nitrite,Urine Negative (Negative); PH, Urine 6.5; Specific Gravity,Urine 1.009 (1.001-1.030); Urobilinogen,Urine 0.2 E.U./DL
[2023-12-20 16:31] LABS: Basophils # (A) 0.02 X 10*3/uL (0.00-0.10); Basophils % (A) 0.6 %; Eosinophils # (A) 0.21 X 10*3/uL (0.04-0.35); Eosinophils % (A) 6.7 %; HCT 45.2 % (39.6-50.0); HGB 14.9 g/dL (13.0-17.0); Lymphocytes # (A) 1.61 X 10*3/uL (0.90-5.00); Lymphocytes % (A) 51.3 %; MCH 29.4 pg (27.0-32.0); MCV 89.3 FL (80.0-97.0); Mean Platelet Volume 10.1 FL (9.5-12.2); Monocytes # (A) 0.21 X 10*3/uL (0.20-1.00); Monocytes % (A) 6.7 %; NRBC Per 100 WBC 0 X 10*3/uL (0.00-0.01); Neutrophils # (A) 1.08 X 10*3/uL (1.80-7.70); Neutrophils % (A) 34.4 %; Platelet Count 220 X 10*3/uL (140-440); RBC 5.06 X 10*6/uL (4.40-5.60); RDW 12.2 % (11.5-14.5); WBC 3.14 X 10*3/uL (4.50-10.00)
[2023-12-20 16:39] LABS: Blood Urea Nitrogen 11.9 mg/dL (9.0-27.0); Chloride 105 mmol/L (96-109); Glucose 92 mg/dL (70-110); Potassium 4.7 mmol/L (3.5-5.5); Sodium 141 mmol/L (135-145)
== END | disposition home or self-care (01) ==
LOC: LABWHC1 09:43
PROVIDERS: ATTEND Thoracic Surgery (Cardiothoracic Vascular Surgery)
DX: Z01.812 Encounter for preprocedural laboratory examination (principal); R91.1 Solitary pulmonary nodule; R58 Hemorrhage, not elsewhere classified; R53.83 Other fatigue; Z79.899 Other long term (current) drug therapy
CPT/HCPCS: 36415; 80051; 81003; 82565; 82947; 84520; 85025; 85610; 85730; 86850; 86900; 86901; 87086; 93005

== ENCOUNTER 2023-12-27 07:19 | Inpatient (IN) | payer MEDICARE, OTHER ==
[~2023-12-27 07:19] MED LIST changes: -ACETAMINOPHEN TAB 500 MG TAB PO PRN; -GABAPENTIN 300 MG CAP PO STA; -HEPARIN SODIUM,PORCINE/PF 5,000 UNIT/0.5 ML SYRINGE SQ PRN; +HYDROmorphone 0.5 MG/0.5 ML SYRINGE IVP PRN; +LIDOCAINE 1% (10MG/ML) FOR IV START INTRADERMA PRN; -MELOXICAM 7.5 MG TAB PO ONE; -ONDANSETRON 4 MG/2 ML VIAL IVP PRN; -TAMSULOSIN 0.4 MG CAP.ER.24H PO STA
[2023-12-27] MEDS: IV FLUID CONTINUATION 1,000 ML IV ONE ×3 (08:23→14:35)
[2023-12-27] MEDS: DEXAMETHASONE SOD PHOSPHATE 4 MG/ML 1 ML VIAL IV ONE (08:25)
[2023-12-27] MEDS: ONDANSETRON 4 MG/2 ML VIAL IVP ONE (08:25)
[2023-12-27] MEDS: IPRATROPIUM-ALBUTEROL 3 ML NEB INHALATION STA (08:25)
[2023-12-27] MEDS: fentaNYL (PF) 50 MCG/ML 2 ML AMP IVP STA (08:37)
[2023-12-27] MEDS: MIDAZOLAM 2 MG/2 ML VIAL IV PRN (08:37)
[2023-12-27] MEDS: LACTATED RINGERS 1,000 ML IV SCH (08:58)
[2023-12-27] MEDS ORDERED: fentaNYL (PF) 50 MCG/ML 2 ML AMP ONE (09:15)
[2023-12-27] MEDS ORDERED: ROPIVACAINE 5 MG/ML 30 ML VIAL ONE (09:15)
[2023-12-27] MEDS ORDERED: ROCURONIUM 10 MG/ML (5 ML VIAL) IV ONE (09:15)
[2023-12-27] MEDS ORDERED: HYDROmorphone (PF) 1 MG/ML ONE (09:15)
[2023-12-27] MEDS ORDERED: NEOSTIGMINE 1 MG/ML 10 ML VIAL ONE (09:15)
[2023-12-27] MEDS ORDERED: KETAMINE HCL IN 0.9 % NACL 50 MG/5 ML SYRINGE ONE (09:15)
[2023-12-27] MEDS ORDERED: LIDOCAINE 1% INJ 10MG/ML (20 ML MDV) ONE (09:15)
[2023-12-27] MEDS ORDERED: PROPOFOL 10 MG/ML 20 ML VIAL IV ONE (09:15)
[2023-12-27] MEDS ORDERED: SUCCINYLCHOLINE CHLORIDE 200 MG/10 ML VIAL IV ONE (09:15)
[2023-12-27] MEDS ORDERED: DEXAMETHASONE SOD PHOSPHATE 4 MG/ML 1 ML VIAL ONE (09:15)
[2023-12-27] MEDS ORDERED: GLYCOPYRROLATE 0.2 MG/ML 2 ML VIAL ONE (09:15)
--- NOTE | 2023-12-27 09:44 | P.ANPRN ---
Procedure Note - Anesthesia - Nerve Block Performed Right Erector Spinae Single Time Out Performed: Yes Date of Procedure: 12/27/23 Procedure Start Time: 08:37 Procedure Stop Time: 08:42 Location of Patient: PreOp Indication: Acute Post-Operative Pain, Requested by Surgeon Sedation Type: Sedate with meaningful contact maintained Preparation: Sterile Prep, Sterile Dressing Position: Prone Catheter: None Needle Types: Facet Needle Gauge: 20 Ultrasound used to visualize needle placement: Yes Ultrasound used to observe medication spread: Yes Injectate: 0.5% Ropivacaine (see comment for volume) (20 ml + 3 mg decadron) Blood Aspirated: No Pain Paresthesia on Injection Noted: No Resistance on Injection: Normal Image Stored and Saved: Yes Events: Uneventful and Well Tolerated Right Other (see comment) Single Time Out Performed: Yes Date of Procedure: 12/27/23 Procedure Start Time: 08:45 Procedure Stop Time: 08:50 Location of Patient: PreOp Indication: Acute Post-Operative Pain, Requested by Surgeon Sedation Type: Sedate with meaningful contact maintained Preparation: Sterile Prep, Sterile Dressing Position: Prone Catheter: None Needle Types: Facet Needle Gauge: 20 Ultrasound used to visualize needle placement: Yes Ultrasound used to observe medication spread: Yes Injectate: 0.5% Ropivacaine (see comment for volume) (10 ml + decadron 1 mg) Narrative: u/s guided paravertebral at T6 and T8 levels Blood Aspirated: No Pain Paresthesia on Injection Noted: No Resistance on Injection: Normal Image Stored and Saved: Yes Events: Uneventful and Well Tolerated
--- NOTE | 2023-12-27 09:45 | P.ANPRN ---
Procedure Note - Anesthesia - Invasive Line Right Arterial Line Time Out Performed: Yes Date of Procedure: 12/27/23 Time of Procedure: 08:52 Location of Patient: PreOp Preparation: Sterile Prep, Sterile Dressing Arterial Line Location: Radial Ultrasound Used: Yes Purpose - Visualization and Identification of Vasculature: Yes Needle Guage: 20 Image Stored and Saved: Yes Narrative: Invasive line placement per sterile protocol utilized. Left w/ unsuccessful attempt. Right side placed easily
[2023-12-27] MEDS: BUPIVACAINE (PF) 0.5% 30 ML VIAL SQ ONE (10:27)
[2023-12-27] MEDS: LACTATED RINGERS 1,000 ML IV ONE (11:09)
[2023-12-27] MEDS ORDERED: METOCLOPRAMIDE 5 MG/ML 2 ML VIAL IVP PRN (12:33)
[2023-12-27] MEDS ORDERED: bisacodyL 10 MG SUPP RECTAL PRN (12:33)
[2023-12-27] MEDS ORDERED: ONDANSETRON 4 MG/2 ML VIAL IVP PRN ×2 (12:33→13:00)
[2023-12-27] MEDS: HYDROmorphone 0.5 MG/0.5 ML SYRINGE IVP PRN (12:40)
[2023-12-27] MEDS: fentaNYL (PF) 50 MCG/ML 2 ML AMP IVP PRN (13:00)
--- NOTE | 2023-12-27 13:05 | XR ---
EXAMINATION TYPE: XR chest 1V portable DATE OF EXAM: 12/27/2023 HISTORY: Status post right upper lobe wedge resection COMPARISON: 01/01/2022 TECHNIQUE: Single view of the chest is submitted. FINDINGS: Post operative changes right chest with focal density seen. Right-sided chest tube is noted with a sm all amount of subcutaneous air seen along the lower right chest wall. Tiny right apical pneumothorax is suspected less than 5%. The heart is stable. Hilar and mediastinal structures are within normal limits. Degenerative changes are seen of the dorsal spine. IMPRESSION: 1. Post operative changes right chest with focal density seen. Right-sided chest tube is noted with a small amount of subcutaneous air seen along the lower right chest wall. Tiny right apical pneumotho rax is suspected less than 5%. [facility], , 12/27/2023 1:02 PM
[2023-12-27] MEDS: ACETAMINOPHEN IV (For NPO) 1,000 MG in EMPTY BAG 1 BAG IVPB SCH (13:19)
[2023-12-27] MEDS: IPRATROPIUM-ALBUTEROL 3 ML NEB IH PRN (13:21)
--- NOTE | 2023-12-27 14:44 | P.OP ---
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 Postoperative Diagnosis: Same Procedure(s) Performed: Robotic assisted thoracoscopic wedge resection right upper lobe mass, hilar and mediastinal lymph node dissection Anesthesia: GETA Surgeon: Pantera Winston Estimated Blood Loss (ml): 25 IV fluids (ml): 800 Urine output (ml): 200 Pathology: other (Right upper lobe wedge resection for frozen section and permanent section, lymph node stations R4, level 7, R8, R10, R11 anterior, R11 posterior all for permanent section) Condition: stable Disposition: PACU Indications for Procedure: 63-year-old male with new nodule in the right upper lobe measuring just under a centimeter in diameter by CT. PET scanning was positive for uptake in the mass consistent with malignancy. There is no evidence of hilar adenopathy by CT or metastasis by PET criteria. Bronchoscopy was nondiagnostic. Patient was referred for diagnosis and treatment. Operative Findings: Approximately 1 cm tumor was evident in the right upper lobe adjacent to the greater fissure. There was mild to moderate anthracotic adenopathy present without any evidence of gross tumor involvement of the lymph nodes. Description of Procedure: Patient was brought to the operating room and placed supine on the operating table. General anesthesia was induced. Double-lumen endotracheal tube was placed and secured under bronchoscopic guidance. Patient was turned in the left lateral decubitus position and appropriately positioned for robotic lobectomy. Right chest was sterilely prepped and draped. Initial incision was made in the eighth interspace in the midaxillary line carried down through skin and subcutaneous tissue. 8 mm robotic port was placed into the pleural space. After confirming placement in the pleural space with thoracoscopy, CO2 insufflation was begun. 2 further 8 mm robotic ports were placed 1 in the eighth interspace posterior to the initial and the second in the fourth interspace posteriorly. A 12 mm robotic port was placed anteriorly in the eighth interspace and a 12 mm port was placed at the level of the diaphragm anteriorly. The robot was docked. The chest was explored. There were a few adhesions of the upper lobe taken down by electrocautery. The primary lung mass was identified in the greater fissure. Generous wedge resection was taken using multiple firings of robotic Endo PAYAM 45 blue stapler attempting to get as wider margin is possible of the mass. 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 Dissection was carried posteriorly and the are 8 and level 7 lymph nodes were resected. Dissection was then carried onto the bronchus and the R11 lymph node was resected between the bronchus intermedius and the upper lobe bronchus and labeled R11 posterior. Dissection was then carried superiorly of the pleura was opened inferior to the azygos vein. R10 lymph nodes were resected. Dissection was carried superior to the azygos vein and RF for lymph nodes were resected. We now exposed anteriorly and resected some lymph nodes from between the branches of the pulmonary vein draining the upper and middle lobe and sent these as R11 lymph nodes anterior. Chest was now irrigated out and a 28 [place] chest tube placed through separate stab incision anteriorly and positioned posterior apically. It was connected to Pleur-evac suction. The lung was reinflated inflated under thoracoscopic visualization. Robotic ports were removed. Incisions were closed with layers of Vicryl suture. Skin glue and dry sterile dressings were applied. Patient was turned supine and extubated and transferred to recovery in stable condition.
[2023-12-27] MEDS: DEXTROSE 5%-0.45% NACL 1,000 ML IV SCH (15:20)
[2023-12-27] MEDS: KETOROLAC 15 MG/ML 1 ML VIAL IVP SCH (15:20)
[2023-12-27] MEDS: traMADol 50 MG TAB PO PRN (16:36)
[2023-12-27] MEDS: IPRATROPIUM-ALBUTEROL 3 ML NEB IH SCH (16:47)
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
[2023-12-27] MEDS: HEPARIN SODIUM,PORCINE 5,000 UNIT/ML 1 ML VIAL SQ SCH (18:03)
[2023-12-27] MEDS: HYDROcodone/APAP 10-325MG 1 EACH TAB PO PRN (18:03)
[2023-12-27] MEDS: ARIPiprazole 5 MG TAB PO SCH (20:43)
[2023-12-27] MEDS: methocarbamoL 500 MG TAB PO PRN (21:23)
[2023-12-27] MEDS: BUDESONIDE 1 MG/2 ML NEBU INHALATION SCH (21:46)
[2023-12-27] MEDS: FORMOTEROL FUMARATE 20 MCG/2 ML NEBU INHALATION SCH (21:46)
[2023-12-28] MEDS: HYDROcodone/APAP 10-325MG 1 EACH TAB PO ONE (01:10)
[2023-12-28 07:05] LABS: Basophils % (A) 0 %; Eosinophils % (A) 0 %; HCT 43.9 % (39.0-53.0); HGB 14.4 gm/dL (13.0-17.5); Lymphocytes # (A) 1.5 k/uL (1.0-4.8); Lymphocytes % (A) 17 %; MCH 30.1 pg (25.0-35.0); MCHC 32.8 g/dL (31.0-37.0); MCV 91.6 fL (80.0-100.0); Mean Platelet Volume 7.2; Monocytes # (A) 0.4 k/uL (0-1.0); Monocytes % (A) 5 %; Neutrophils # (A) 6.4 k/uL (1.3-7.7); Neutrophils % (A) 76 %; Platelet Count 247 k/uL (150-450); RDW 12.9 % (11.5-15.5); WBC 8.3 k/uL (3.8-10.6)
[2023-12-28 07:34] LABS: African American GFR (CKD) >90 (>60 ml/min/1.73 sqM); Anion Gap 8 mmol/L; Blood Urea Nitrogen 14 mg/dL (9-20); Calcium 9.2 mg/dL (8.4-10.2); Carbon Dioxide 27 mmol/L (22-30); Chloride 103 mmol/L (98-107); Glucose 124 mg/dL (74-99); Non-African American GFR(CKD) 83 (>60 ml/min/1.73 sqM); Potassium 4.2 mmol/L (3.5-5.1); Sodium 138 mmol/L (137-145)
--- NOTE | 2023-12-28 08:04 | XR ---
EXAMINATION TYPE: XR chest 1V DATE OF EXAM: 12/28/2023 HISTORY: Shortness of breath. COMPARISON: 12/27/2023 TECHNIQUE: Single view of the chest is submitted. FINDINGS: Right-sided chest tube noted. Enlarging pneumothorax seen within the periphery of the right upper lob e. Pneumothorax estimated at </=10%. Focal density right upper lobe. Small amount of subcutaneous air is redemonstrated. Left lung is clear. The heart is stable. Hilar and mediastinal structures are within normal limits. Degenerative changes are seen of the dorsal spine. IMPRESSION: 1. Right-sided chest tube noted. Enlarging pneumothorax seen within the periphery of the right upper lobe. Pneumothorax estimated at </=10%. Focal density right upper lobe. [facility], , 12/28/2023 8:01 AM
[2023-12-28 08:58] VITALS: RESP 17; TEMP 97.5
--- NOTE | 2023-12-28 08:58 | P.PN ---
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 Morales sitting up in recliner on the cardiac stepdown unit in no acute distress. Remains in sinus rhythm, hemodynamically stable. Currently on room air, able to achieve 2000 mL on his incentive spirometry. Right pleural chest tube remains present to [facility], no airleak present, 30 mL output since surgery. Patient had quite a bit of issues yesterday with uncontrolled pain, medications adjusted, states most of his pain is from his back which is chronic for him, he did state this morning that it is better controlled. No other new concerns. Objective - Vital Signs Vital signs: Vital Signs Temp 97.6 F 12/28/23 04:00 Pulse 84 12/28/23 08:21 Resp 18 12/28/23 04:00 BP 147/76 12/28/23 04:00 Pulse Ox 96 12/28/23 04:00 FiO2 Intake & Output 12/27/23 12/28/23 12/28/23 18:59 06:59 18:59 Intake Total 2350 350 Output Total 790 1820 Balance 1560 -1470 Weight 97 kg 96.8 kg Intake: IV 2350 Oral 350 Output: Chest Tube Drainage 0 20 Chest Tube Right Anterior 0 20 Chest Drainage 10 Right Anterior 10 Urine 750 1800 Estimated Blood Loss 30 Other: Voiding Method Indwelling Catheter Indwelling Catheter - Exam CONSTITUTIONAL: Appears comfortable, cooperative, no acute distress RESPIRATORY: Lungs sounds diminished bilaterally. Respirations even, nonlabored. Currently on room air with oxygen saturation 96%. Able to achieve 2000 mL on incentive spirometry. Strong cough. CARDIOVASCULAR: S1, S2 present. Regular rate and rhythm, sinus rhythm on telemetry. Palpable peripheral pulses bilaterally. No edema present. No calf pain or tenderness noted. SCDs present. GASTROINTESTINAL: Abdomen soft, nontender, nondistended. Active bowel sounds present 4 quadrants. Tolerating diet. GENITOURINARY: Ramos present this morning, just recently discontinued, due to void INTEGUMENTARY: Skin is warm and dry NEUROLOGIC: Cranial nerves II through XII intact MUSKULOSKELETAL: Able to move all extremities, strength equal bilaterally, gait normal PSYCHIATRIC: Alert and oriented to person place and time, appropriate affect, intact judgment and insight INVASIVE LINES AND TUBES: Right pleural chest tubes present to waterseal, no air leaks present, 30 mL serosanguineous drainage since surgery - Allied health notes Allied health notes reviewed: nursing - Labs CBC & Chem 7: 12/28/23 06:39 12/28/23 06:39 Labs: Abnormal Lab Results - Last 24 Hours (Table) 12/28/23 Range/Units 06:39 Glucose 124 H (74-99) mg/dL - Imaging and Cardiology Chest x-ray: report reviewed, image reviewed Assessment and Plan Assessment: Mass right upper lobe lung consistent with carcinoma, 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, final pathology pending, status post robotic a ssisted thoracoscopic wedge resection right upper lobe mass, hilar and mediastinal lymph node dissection History of current tobacco dependence COPD Marijuana use Chronic back pain on chronic narcotics outpatient Anxiety/depression Plan: Continue current medication therapy Pain control per current medication regimen Encourage incentive spirometry use, bronchodilators per pulmonology Increase activity as tolerated Will continue right-sided pleural chest tube for now, likely will discontinue this afternoon Ramos catheter just discontinued, monitor for urinary retention Once chest tube discontinued will repeat chest x-ray, if stable will discharge to home
[2023-12-28] MEDS: buPROPion XL 150 MG TAB.ER.24H PO SCH (09:41)
[2023-12-28 11:21] VITALS: BP 110/69
[2023-12-28 11:41] VITALS: PULSE 84
[2023-12-28] MEDS: LIDOCAINE 4% PATCH TOPICAL SCH (13:31)
--- NOTE | 2023-12-28 14:49 | P.DS ---
Providers Date of admission: 12/27/23 07:19 Expected date of discharge: 12/28/23 Attending physician: Pantera Winston Consults: 12/27/23 12:33 Consult Physician Routine Consulting Provider: Elvis Hoffmann Jr Consult Reason/Comments: Medical Management Do you want consulting provider notified?: Yes Consult Physician Routine Consulting Provider: Yoel Jimenez Consult Reason/Comments: Postop right upper lobe wedge resection Do you want consulting provider notified?: Yes 12/28/23 12:59 Consult Physician Routine Consulting Provider: Kenji Sauceda Consult Reason/Comments: sq cell ca lung Do you want consulting provider notified?: Yes Primary care physician: [facility] Course: FINAL DIAGNOSIS: Mass right upper lobe lung consistent with carcinoma, 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 Hoffmann for primary care and Dr. Lynn for pulmonology. He has a longstanding smoking history and he had a screening CT demonstrating subcentimeter nodule in the right lower lobe. PET scan was obtained which did not demonstrate significant uptake so the patient was followed with serial CTs. Most recent CAT scan in September demonstrated increased size of the mass. This time follow-up PET demonstrated uptake with SUV of 4.8 in the mass. The patient was referred to Dr. Winston from cardiothoracic surgery. He was recommended to undergo wedge resection with on table diagnosis as well as plans for possible future lobectomy if lymph nodes turned out to be positive. The usual perioperative course was discussed in detail with the patient and his family, all risks and benefits were explained, all questions were answered, and consent was obtained to proceed with surgery. The patient was scheduled for surgery at the earliest possible date. HOSPITAL COURSE: The patient was brought to the hospital on 12/27/23, taken to the preoperative area, prepared in the usual fashion, and subsequently taken to the operating room where Dr. Winston performed right upper lobe wedge resection. Upon completion of surgery the patient was extubated and taken to the recovery room for further monitoring. He was eventually admitted to 3 S. cardiac stepdown unit for recovery. His chest tube was placed to waterseal the night of surgery, the following morning chest x-ray was stable, there was no airleak and the right sided pleural chest tube was discontinued without incident. Follow-up chest x-ray remained stable. His oxygen was titrated down, he was tolerating oral diet, his pain was mostly controlled except for his chronic back pain, and he was ready to be discharged to home on postoperative day #1. He received written and verbal instruction regarding his medications, activity restrictions, signs and symptoms requiring physician notification, and follow-up appointments. Plan - Discharge Summary Discharge Rx Participant: No New Discharge Prescriptions: Continue ARIPiprazole [Abilify] 5 mg PO HS Ibuprofen [Motrin] 200 mg PO Q8H PRN PRN Reason: Pain buPROPion XL [Wellbutrin XL] 150 mg PO QAM HYDROcodone/APAP 10-325MG [[place] 10-325] 1 tab PO Q6H PRN PRN Reason: Pain Glycopyrrolate/Formoterol Fum [Bevespi Aerosphere Inhaler] 1 puff INHALATION BID Discharge Medication List ARIPiprazole [Abilify] 5 mg PO HS 12/10/19 [History] Ibuprofen [Motrin] 200 mg PO Q8H PRN 07/06/22 [History] buPROPion XL [Wellbutrin XL] 150 mg PO QAM 07/06/22 [History] HYDROcodone/APAP 10-325MG [[place] 10-325] 1 tab PO Q6H PRN 09/14/22 [History] Glycopyrrolate/Formoterol Fum [Bevespi Aerosphere Inhaler] 1 puff INHALATION BID 12/21/23 [History] Follow up Appointment(s)/Referral(s): Elvis Hoffmann Jr, DO [Primary Care Provider] - 1 Week Pantera Winston MD [STAFF PHYSICIAN] - 01/04/24 11:30 am Pierce Lynn DO [Doctor of Osteopathic Medicine] - 01/30/24 1:45 pm Activity/Diet/Wound Care/Special Instructions: DISCHARGE INSTRUCTIONS: 1. No driving for 2 weeks, or until physician gives their ok. 2. No lifting, pushing, or pulling more than 10 pounds for 2 weeks. The physician will advise of any restriction changes. 3. Continue pain control per as needed orders. Alternate acetaminophen (Tylenol) and ibuprofen (Motrin/Advil) for pain. 4. Continue with incentive spirometry and splinting until otherwise directed by the physician. 5. Leave chest tube dressing for 48 hours. After that, remove all dressings and shower daily. 6. Routine incision care. No powders, lotions, ointments on incisions. 7. Please call surgeon/PLASTER MOLD MAKER for temp greater than 101 F or purulent drainage from incisions. 8. Smoking cessation counseling and program information provided. Quitting smoking is the most important step you can take to improve your health. For additional information and assistance to quit smoking, please call the [place] tobacco quit line (9-752-XPAM-NOW/ ) or online: [email or web address] Discharge Disposition: HOME SELF-CARE
--- NOTE | 2023-12-28 14:55 | XR ---
EXAMINATION TYPE: XR chest 1V portable DATE OF EXAM: 12/28/2023 HISTORY: Chest tube removal COMPARISON: Same day study TECHNIQUE: Single view of the chest is submitted. FINDINGS: Right Sided chest tube has been removed. No evidence for sizable right-sided pneumothorax. Subcutaneo us air along the right chest wall persists. Increased opacity left lower lobe likely reflects atelect asis. Continued density right upper lobe. The heart is stable. Hilar and mediastinal structures are within normal limits. Degenerative changes are seen of the dorsal spine. IMPRESSION: 1. Right Sided chest tube has been removed. No evidence for sizable right-sided pneumothorax. Subcut aneous air along the right chest wall persists. Increased opacity left lower lobe likely reflects ate lectasis. Continued density right upper lobe. [facility], , 12/28/2023 2:53 PM
--- NOTE | 2023-12-28 15:39 | P.PN ---
Subjective Progress Note Date: 12/28/23 This is a pleasant 63-year-old male patient with a known history of chronic obstructive pulmonary disease, FEV1 value 61% of predicted, chronic and ongoing tobacco dependence of 48 years, chronic back pain. He had also been followed in the outpatient setting by Dr. Lynn in our office for a right upper lobe pulmonary nodule. Most recent CT scan had shown an increase in size. PET scan revealed an SUV uptake of 4.8. He was referred to Dr. Winston and was brought in today electively for a robotically assisted thorascopic wedge resection of the right upper lobe mass, hilar and mediastinal lymph node dissection. Postoperative day #0. He is seen in consultation on the selective care unit. He is currently sitting up in a chair. Awake and alert in no acute distress. Maintaining good O2 saturations in the 90s on 2 L/min per nasal cannula. Hemodynamically stable. Right-sided chest tube remains in place. Small airleak noted. Currently to Pleur-evac and wall suction. This x-ray reveals a small amount of subcutaneous air seen along the right chest wall. Tiny right apical pneumothorax suspected, less than 5%. He is initiated on DuoNeb inhalations, Pulmicort and Perforomist inhalations. Heparin for DVT prophylaxis. Educated regarding the use of the incentive spirometer. The patient is seen today December 28, 2023 in follow-up on the selective care unit. He is currently sitting up in a chair at the bedside. Awake and alert in no acute distress. His main complaint is still of his chronic back pain. No worsening shortness of breath, cough or congestion. No hemoptysis. Maintaining O2 saturation in the 90s on room air. Chest tube remains in place to waterseal. Small leak noted. Plan is to remove the chest tube today. Follow-up chest x- ray shows no evidence for sizable right sided pneumothorax. There is some subcutaneous air along the right sided chest wall. Atelectasis of the left lower lobe. White count 8.3. Hemoglobin 14.4. Platelets 247. Sodium 138. Potassium 4.2. Bicarb 27. BUN 14. Creatinine 0.97. Glucose 124. He continues to work well with the incentive spirometer. He remains on DuoNeb and elations, Pulmicort and Perforomist inhalations. Heparin for DVT prophylaxis. Objective - Vital Signs Vital signs: Vital Signs Temp 97.5 F L 12/28/23 11:20 Pulse 84 12/28/23 11:40 Resp 17 12/28/23 11:20 BP 110/69 12/28/23 11:20 Pulse Ox 96 12/28/23 11:20 FiO2 Intake & Output 12/27/23 12/28/23 12/28/23 18:59 06:59 18:59 Intake Total 2350 350 Output Total 790 1820 450 Balance 1560 -1470 -450 Weight 97 kg 96.8 kg Intake: IV 2350 Oral 350 Output: Chest Tube Drainage 0 20 0 Chest Tube Right Anterior 0 20 0 Chest Drainage 10 Right Anterior 10 Urine 750 1800 450 Estimated Blood Loss 30 Other: Voiding Method Indwelling Catheter Indwelling Catheter Urinal - Exam GENERAL EXAM: Alert, 63-year-old male, on room air, up in a chair, fairly comfortable in no apparent distress. HEAD: Normocephalic. EYES: Normal reaction of pupils, equal size. NOSE: Clear with pink turbinates. THROAT: No erythema or exudates. NECK: No masses, no JVD. CHEST: No chest wall deformity. Right-sided chest tube remains in place to waterseal. Small leak. LUNGS: Equal air entry with no crackles, wheeze, rhonchi or dullness. CVS: S1 and S2 normal with no audible murmur, regular rhythm. ABDOMEN: No hepatosplenomegaly, normal bowel sounds, no guarding or rigidity. SPINE: No scoliosis or deformity SKIN: No rashes CENTRAL NERVOUS SYSTEM: No focal deficits, tone is normal in all 4 extremities. EXTREMITIES: There is no peripheral edema. No clubbing, no cyanosis. Peripheral pulses are intact. - Labs CBC & Chem 7: 12/28/23 06:39 12/28/23 06:39 Labs: Abnormal Lab Results - Last 24 Hours (Table) 12/28/23 Range/Units 06:39 Glucose 124 H (74-99) mg/dL Assessment and Plan Assessment: Right upper lung mass suspicious for carcinoma. Status post robotic assisted thoracoscopic wedge resection of the right upper lobe, hilar and mediastinal lymph node dissection. Postoperative day #1 Chronic and ongoing tobacco dependence of 48 years Chronic obstructive pulmonary disease Chronic back pain Plan: The patient was seen and evaluated Chest x-ray, labs and medications reviewed Chest tube removed per CT services Follow-up chest x-ray shows no evidence of pneumothorax Plan is for possible discharge today Continue his home pulmonary medications Follow-up with Dr. Lynn in our office in 1 week I have personally seen and examined the patient, performed the documentation and the assessment and plan as written. Number of minutes spent on the visit: 10.
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
== END 2023-12-28 16:03 | disposition home or self-care (01) | DRG 165 ==
LOC: 2ORMAIN 07:19 → 3SCARD 14:22
PROVIDERS: ADMIT Thoracic Surgery (Cardiothoracic Vascular Surgery); ATTEND Thoracic Surgery (Cardiothoracic Vascular Surgery)
PROC: 07B73ZX Excision of Thorax Lymphatic, Percutaneous Approach, Diagnostic (ICD-10-PCS; 2023-12-27)
PROC: 8E0W4CZ Robotic Assisted Procedure of Trunk Region, Percutaneous Endoscopic Approach (ICD-10-PCS; 2023-12-27)
PROC: 3E0T3BZ Introduction of Anesthetic Agent into Peripheral Nerves and Plexi, Percutaneous Approach (ICD-10-PCS; 2023-12-27)
PROC: 4A133B1 Monitoring of Arterial Pressure, Peripheral, Percutaneous Approach (ICD-10-PCS; 2023-12-27)
PROC: 4A133J1 Monitoring of Arterial Pulse, Peripheral, Percutaneous Approach (ICD-10-PCS; 2023-12-27)
PROC: 03HY32Z Insertion of Monitoring Device into Upper Artery, Percutaneous Approach (ICD-10-PCS; 2023-12-27)
PROC: 0BBC4ZZ Excision of Right Upper Lung Lobe, Percutaneous Endoscopic Approach (ICD-10-PCS; principal; 2023-12-27 09:00)
DX: C34.11 Malignant neoplasm of upper lobe, right bronchus or lung (principal); E66.9 Obesity, unspecified; F17.210 Nicotine dependence, cigarettes, uncomplicated; M54.9 Dorsalgia, unspecified; F31.9 Bipolar disorder, unspecified; F41.9 Anxiety disorder, unspecified; Z82.49 Family history of ischemic heart disease and other diseases of the circulatory system; G89.29 Other chronic pain; I10 Essential (primary) hypertension; J44.9 Chronic obstructive pulmonary disease, unspecified; Z79.891 Long term (current) use of opiate analgesic; Z80.3 Family history of malignant neoplasm of breast; Z68.30 Body mass index [BMI] 30.0-30.9, adult; Z87.19 Personal history of other diseases of the digestive system
CPT/HCPCS: 64461; 64999; 71045; 80048; 85025; 88305; 88307; 88313; 88331; 88342; 94640

== ENCOUNTER → 2024-01-30 | Outpatient (CLI) | payer MEDICARE, OTHER ==
[2024-01-30 17:59] LABS: INR 0.9 (<1.2); Partial Thromboplastin Time 22.1 sec (22.0-30.0); Prothrombin Time 10.4 sec (10.0-12.5)
[2024-01-31 02:32] LABS: Basophils # (A) 0.05 X 10*3/uL (0.00-0.10); Basophils % (A) 0.9 %; Eosinophils # (A) 0.34 X 10*3/uL (0.04-0.35); Eosinophils % (A) 5.9 %; HCT 42.5 % (39.6-50.0); HGB 13.8 g/dL (13.0-17.0); Lymphocytes # (A) 1.69 X 10*3/uL (0.90-5.00); Lymphocytes % (A) 29.1 %; MCH 29.5 pg (27.0-32.0); MCHC 32.5 g/dL (32.0-37.0); MCV 90.8 FL (80.0-97.0); Mean Platelet Volume 10.4 FL (9.5-12.2); Monocytes # (A) 0.38 X 10*3/uL (0.20-1.00); Monocytes % (A) 6.5 %; NRBC Per 100 WBC 0 X 10*3/uL (0.00-0.01); Neutrophils # (A) 3.34 X 10*3/uL (1.80-7.70); Neutrophils % (A) 57.4 %; Platelet Count 226 X 10*3/uL (140-440); RBC 4.68 X 10*6/uL (4.40-5.60); RDW 13.6 % (11.5-14.5); WBC 5.81 X 10*3/uL (4.50-10.00)
[2024-01-31 02:40] LABS: Blood Urea Nitrogen 13.9 mg/dL (9.0-27.0); Carbon Dioxide 28.2 mmol/L (21.6-31.8); Chloride 105 mmol/L (96-109); Glucose 83 mg/dL (70-110); Magnesium 2.2 mg/dL (1.5-2.4); Potassium 4.1 mmol/L (3.5-5.5); Sodium 143 mmol/L (135-145)
== END | disposition home or self-care (01) ==
LOC: LABWHC1 14:54
PROVIDERS: ATTEND Thoracic Surgery (Cardiothoracic Vascular Surgery)
DX: Z01.818 Encounter for other preprocedural examination (principal); C34.11 Malignant neoplasm of upper lobe, right bronchus or lung
CPT/HCPCS: 36415; 80051; 82565; 82947; 83735; 84520; 85025; 85610; 85730; 86850; 86900; 86901

== ENCOUNTER 2024-02-09 05:36 | Inpatient (IN) | payer MEDICARE, OTHER ==
[2024-02-07 13:35] VITALS: BMI 31.5
[2024-02-09] MEDS ORDERED: LIDOCAINE 1% (10MG/ML) FOR IV START INTRADERMA PRN (05:38)
[2024-02-09] MEDS: IV FLUID CONTINUATION 1,000 ML IV ONE ×2 (05:39→06:22)
[2024-02-09] MEDS: LACTATED RINGERS 1,000 ML IV SCH (06:21)
[2024-02-09] MEDS: DEXAMETHASONE SOD PHOSPHATE 4 MG/ML 1 ML VIAL IV ONE (06:37)
[2024-02-09] MEDS: ONDANSETRON 4 MG/2 ML VIAL IVP ONE (06:37)
[2024-02-09] MEDS: MIDAZOLAM 2 MG/2 ML VIAL IV STA (06:50)
[2024-02-09] MEDS ORDERED: LIDOCAINE 1% INJ 10MG/ML (20 ML MDV) ONE (07:35)
[2024-02-09] MEDS ORDERED: NEOSTIGMINE 1 MG/ML 10 ML VIAL ONE (07:35)
[2024-02-09] MEDS ORDERED: PROPOFOL 10 MG/ML 20 ML VIAL IV ONE (07:35)
[2024-02-09] MEDS ORDERED: ROPIVACAINE 5 MG/ML 30 ML VIAL ONE (07:35)
[2024-02-09] MEDS ORDERED: ROCURONIUM 10 MG/ML (5 ML VIAL) IV ONE (07:35)
[2024-02-09] MEDS ORDERED: MIDAZOLAM 2 MG/2 ML VIAL ONE (07:35)
[2024-02-09] MEDS ORDERED: HYDROmorphone (PF) 1 MG/ML ONE (07:35)
[2024-02-09] MEDS ORDERED: KETAMINE HCL IN 0.9 % NACL 50 MG/5 ML SYRINGE ONE (07:35)
[2024-02-09] MEDS ORDERED: fentaNYL (PF) 50 MCG/ML 2 ML AMP ONE (07:35)
[2024-02-09] MEDS ORDERED: DEXAMETHASONE SOD PHOSPHATE 4 MG/ML 1 ML VIAL ONE (07:35)
[2024-02-09] MEDS ORDERED: GLYCOPYRROLATE 0.2 MG/ML 2 ML VIAL ONE (07:35)
[2024-02-09] MEDS ORDERED: SODIUM CHLORIDE 0.9% (PF) 10 ML VIAL ONE (07:35)
[2024-02-09] MEDS ORDERED: SUCCINYLCHOLINE CHLORIDE 200 MG/10 ML VIAL IV ONE (07:35)
[2024-02-09] MEDS: BUPIVACAINE (PF) 0.5% 30 ML VIAL SQ ONE ×2 (08:17→13:16)
[2024-02-09] MEDS: SODIUM CHLORIDE 0.9% 50 ML with ceFAZolin 2,000 MG IV ONE (11:29)
[2024-02-09] MEDS: LACTATED RINGERS 1,000 ML IV ONE (12:26)
--- NOTE | 2024-02-09 13:26 | P.OP ---
Date of Procedure: 02/09/24 Preoperative Diagnosis: Lung cancer, status post wedge resection and mediastinal lymph node dissection Postoperative Diagnosis: Same Procedure(s) Performed: Robotic assisted thoracoscopic completion right upper lobectomy Anesthesia: IOANA Surgeon: [employer] Technician #1: Gregg Carranza Estimated Blood Loss (ml): 300 IV fluids (ml): 1,800 Urine output (ml): 500 Pathology: other (Right upper lobe, previous surgical margin was marked with suture) Condition: stable Disposition: PACU Indications for Procedure: 63-year-old male who presented with enlarging mass in the right upper lobe which was PET positive. PET scan was negative for metastasis. Patient did not want to undergo further diagnostic imaging but wanted the tumor resected for treatment and diagnosis. Initial CT suggested a T1a lesion. Wedge resection with mediastinal lymph node dissection was planned and performed. Final pathology revealed 1 that the tumor was just over 1 cm in diameter making it a T1b N2 the margin of wedge resection was close although negative. All the lymph nodes were negative. Patient recovered well. He was recommended to undergo lobectomy to increase his likelihood of curative resection. Operative Findings: The majority of the pleural space was relatively free of adhesions however there were dense adhesions present in the hilum and surrounding areas from the previous mediastinal lymph node dissection. Fissures were incomplete. There were no good planes present in the hilum making the dissection very difficult. Despite this we were able to successfully perform the lobectomy robotically. Description of Procedure: Patient was brought to the operating room and placed supine on the operating table. General anesthesia was induced and a double-lumen endotracheal tube was placed and positioned with fiberoptic bronchoscopy and secured. The patient was appropriately turned in position for right robotic lobectomy. Initial incision was made in the midaxillary line in the ninth interspace, 1 interspace below the previous initial incision. 8 mm robotic port was placed and after confirmation of placement in the pleural space CO2 insufflation was begun. There did not appear to be any adhesions at the previous surgical port sites and robotic ports were placed in the old incisions with an 8 mm port posteriorly at the level of the greater fissure posteriorly, 12 mm ports anterior and posterior to the initial camera port and a 15 mm working port at the level of the diaphragm. We began with dissection in the fissure, taking down the adhesions to the previous wedge resection. Further dissection in the fissures was performed until we reached the base of the fissures which were somewhat incomplete. Dissection was now carried posteriorly and it was noted that there were dense adhesions present. It was decided to start anteriorly present. There were still dense adhesions present. The superior pulmonary vein was dissected out and the branches dividing the middle lobe were spared the branches dividing the upper lobe were encircled ligated and divided with a robotic stapler. Dissection was carried onto the pulmonary artery and the truncus anterior gnosis and some more distal branches were identified but the exposure was very difficult. We shifted our dissection posteriorly at this time but really struggled to dissected out the bronchus due to dense adhesions which were very vascular and no good tissue planes. Dissection was carried superiorly and the adhesions to the mediastinal pleura and azygos vein were taken down. Despite this we still did not have good ability to dissected out the truncus anterior gnosis although we could see it. Dissection was now taken back to the hilum and we were able to complete the fissures posteriorly and anteriorly with multiple firings of Endo PAYAM staplers and electrocautery and careful dissection. This was a very difficult dissection but proceeded uneventfully. Once the fissures were freed we still could not dissected out the bronchus completely although further dissection was performed. We were now able to dissect out the truncus anterior gnosis and ligated and di vided with a robotic stapler. There were 2 smaller branches more distally which were dissected out and ligated and divided with a single firing of a robotic stapler. We finally were now able to completely encircle the upper lobe bronchus. It was ligated and divided with the robotic black stapler. It was very thick and even the back black stapler struggled to staple it but our final staple line appeared good. The lobectomy specimen was now placed in an Endo Catch bag. The robot was undocked. The working port incision was enlarged in the specimen removed and sent for permanent section after marking the previous resection margin. Chest was suctioned free of blood and irrigated with warm water. The lung was reinflated under water and the bronchus appeared intact. There was some minor air leak from the fissures. 28 O[place]i chest tube was placed anteriorly and positioned posterior apically and secured with 0 Ethibond suture. The lung was fully inflated and the scope removed. The incisions were closed with layers of Vicryl suture. Skin glue and dry sterile dressings were applied. Rib blocks were performed posteriorly with half percent Marcaine at the level of the incisions. Patient was turned supine extubated and transferred to recovery in stable condition. Total blood loss for the case was 300 cc. Patient remained hemodynamically stable throughout.
[2024-02-09] MEDS: HYDROmorphone 0.5 MG/0.5 ML SYRINGE IVP PRN (13:45)
--- NOTE | 2024-02-09 14:35 | XR ---
EXAMINATION TYPE: XR chest 1V portable DATE OF EXAM: 02/09/2024 2:21 PM COMPARISON: 01-18 CLINICAL INDICATION: Male, 63 years old with history of post lobectomy, TECHNIQUE: XR chest 1V portable view(s) obtained. FINDINGS: The heart size is normal. The pulmonary vasculature is normal. Right perihilar increased lung markings are present may be related to the patient's lobectomy. No pneumothorax is evident. Right-sided chest tube is present IMPRESSION: 1. Mild increased lung markings right perihilar region may be related to postsurgical change. 2. Right-sided chest tube. No pneumothorax identified [facility], , 02/09/2024 2:33 PM
[2024-02-09] MEDS: MEPERIDINE 50 MG/ML SYRINGE IVP STA (15:00)
[2024-02-09] MEDS ORDERED: IPRATROPIUM-ALBUTEROL 3 ML NEB IH PRN (15:29)
[2024-02-09] MEDS ORDERED: NON FORMULARY DRUG (Glycopyrrolate/Formoterol Fum [Bevespi Aerosphere Inhaler] 10.7 GM Gm) INHALATION PRN (15:29)
[2024-02-09] MEDS ORDERED: bisacodyL 10 MG SUPP RECTAL PRN (15:29)
[2024-02-09] MEDS: HYDROmorphone 1 MG/ML 1 ML SYRINGE IVP PRN (16:21)
[2024-02-09] MEDS: HEPARIN SODIUM,PORCINE 5,000 UNIT/ML 1 ML VIAL SQ SCH (16:21)
[2024-02-09] MEDS: HYDROcodone/APAP 10-325MG 1 EACH TAB PO SCH (17:20)
[2024-02-09] MEDS: KETOROLAC 15 MG/ML 1 ML VIAL IVP SCH (17:20)
[2024-02-09] MEDS: DEXTROSE 5%-0.45% NACL 1,000 ML IV SCH (17:21)
[2024-02-09] MEDS: IPRATROPIUM-ALBUTEROL 3 ML NEB IH SCH (20:17)
[2024-02-09] MEDS: FORMOTEROL FUMARATE 20 MCG/2 ML NEBU INHALATION SCH (20:42)
[2024-02-09] MEDS: ARIPiprazole 5 MG TAB PO SCH (21:05)
[2024-02-09] MEDS: droPERidol 5 MG/2 ML VIAL IVP ONE (21:58)
[2024-02-10] MEDS: PANTOPRAZOLE 40 MG TABLET PO SCH (06:15)
[2024-02-10 06:29] LABS: Basophils % (A) 0 %; Eosinophils % (A) 0 %; HCT 36.8 % (39.0-53.0); HGB 12.5 gm/dL (13.0-17.5); Lymphocytes # (A) 1.7 k/uL (1.0-4.8); Lymphocytes % (A) 20 %; MCH 30.7 pg (25.0-35.0); MCHC 34.1 g/dL (31.0-37.0); Mean Platelet Volume 7.1; Monocytes # (A) 0.4 k/uL (0-1.0); Monocytes % (A) 5 %; Neutrophils # (A) 6.2 k/uL (1.3-7.7); Neutrophils % (A) 74 %; Platelet Count 211 k/uL (150-450); RBC 4.08 m/uL (4.30-5.90); RDW 13.1 % (11.5-15.5); WBC 8.4 k/uL (3.8-10.6)
--- NOTE | 2024-02-10 07:14 | P.ANPRN ---
Procedure Note - Anesthesia - Nerve Block Performed Right Erector Spinae Single Time Out Performed: Yes Date of Procedure: 02/09/24 Procedure Start Time: :05 Procedure Stop Time: 07:11 Location of Patient: PreOp Indication: Acute Post-Operative Pain, Requested by Surgeon Sedation Type: Sedate with meaningful contact maintained Preparation: Sterile Prep Position: Sitting Needle Types: Pajunk Ultrasound used to visualize needle placement: Yes Ultrasound used to observe medication spread: Yes Blood Aspirated: No Pain Paresthesia on Injection Noted: No Resistance on Injection: Normal Image Stored and Saved: Yes Events: Uneventful and Well Tolerated (Ropivacaine 0.5% 15 cc plus normal saline 10 cc plus dexamethasone 4 mg given at T6 on the right side)
--- NOTE | 2024-02-10 07:24 | P.ANPRN ---
Procedure Note - Anesthesia - Invasive Line Right Arterial Line Time Out Performed: Yes Date of Procedure: 02/09/24 Time of Procedure: 06:51 Location of Patient: PreOp Preparation: Sterile Prep, Sterile Dressing Arterial Line Location: Radial Ultrasound Used: No Purpose - Visualization and Identification of Vasculature: No Image Stored and Saved: No Narrative: Invasive line placement per sterile protocol utilized.
--- NOTE | 2024-02-10 07:57 | XR ---
EXAMINATION TYPE: XR chest 1V DATE OF EXAM: 02/10/2024 5:17 AM COMPARISON: None. CLINICAL INDICATION: Male, 63 years old with history of Post lobectomy, TECHNIQUE: XR chest 1V view(s) obtained. FINDINGS: The heart size is normal. The pulmonary vasculature is normal. There is consolidation in the medial right upper lobe. This is increasing from comparison. Chest tube is present directed to the apex. IMPRESSION: 1. Right medial upper lung consolidation post lobectomy. [facility], , 02/10/2024 7:54 AM
[2024-02-10] MEDS: buPROPion XL 150 MG TAB.ER.24H PO SCH (08:00)
--- NOTE | 2024-02-10 08:06 | P.PN ---
Subjective Progress Note Date: 02/10/24 Principal diagnosis: Lung cancer, status post wedge resection and mediastinal lymph node dissection 12/27/2023, pathology consistent with squamous cell carcinoma. History of tobacco dependence with recent cessation in December 2023, COPD, marijuana use, chronic back pain on chronic narcotics outpatient, anxiety/depression POD #1 robotic assisted thoracoscopic completion right upper lobectomy The patient was seen and examined sitting up in bed on the cardiac stepdown unit in no acute distress although does complain of expected postsurgical pain in his chest tube site including when taking a deep breath. Remains in sinus rhythm, hemodynamically stable. Was on 1.5 L oxygen by nasal cannula with oxygen saturation in the high 90s, oxygen removed. Able to achieve 1500 mL on his incentive spirometry. Right pleural chest tube present to continuous wall suction with small airleak present with forceful coughing. Chest x-ray, labs reviewed. No other new concerns. Objective - Vital Signs Vital signs: Vital Signs Temp 98.2 F 02/10/24 04:00 Pulse 80 02/10/24 04:00 Resp 21 02/10/24 04:00 BP 130/65 02/10/24 04:00 Pulse Ox 97 02/10/24 04:00 FiO2 Intake & Output 02/09/24 02/10/24 02/10/24 18:59 06:59 18:59 Intake Total 3480 Output Total 1530 700 Balance 1950 -700 Weight 100 kg Intake: IV 2400 Oral 1080 Output: Chest Tube Drainage 230 200 Chest Tube Right 230 200 Urine 1000 500 Uretheral (Rmaos) 125 Estimated Blood Loss 300 Other: Voiding Method Indwelling Catheter - Exam CONSTITUTIONAL: Appears comfortable, cooperative, no acute distress RESPIRATORY: Lungs sounds diminished bilaterally with expiratory wheeze present. Respirations even, nonlabored. Was on 1.5 L oxygen via nasal cannula with oxygen saturation 97%. Able to achieve 1500 mL on incentive spirometry. Strong cough. CARDIOVASCULAR: S1, S2 present. Regular rate and rhythm, sinus rhythm on telemetry. Palpable peripheral pulses bilaterally. No edema present. No calf pain or tenderness noted. SCDs present. GASTROINTESTINAL: Abdomen soft, nontender, nondistended. Active bowel sounds present 4 quadrants. Tolerating diet GENITOURINARY: Ramos discontinued this morning, due to void INTEGUMENTARY: Skin is warm and dry with evidence of good perfusion. Thoracic incision well approximated and covered with dry intact dressing. NEUROLOGIC: Cranial nerves II through XII intact MUSKULOSKELETAL: Able to move all extremities, strength equal bilaterally PSYCHIATRIC: Alert and oriented to person place and time, appropriate affect, intact judgment and insight INVASIVE LINES AND TUBES: Right pleural chest tubes present and connected to wall suction, minimal air leak present with coughing, 150 mL serosanguineous drainage overnight, 650 mL since surgery - Allied health notes Allied health notes reviewed: nursing - Labs CBC & Chem 7: 02/10/24 05:36 Labs: Abnormal Lab Results - Last 24 Hours (Table) 02/10/24 Range/Units 05:36 RBC 4.08 L (4.30-5.90) m/uL Hgb 12.5 L (13.0-17.5) gm/dL Hct 36.8 L (39.0-53.0) % - Imaging and Cardiology Chest x-ray: report reviewed, image reviewed Assessment and Plan Assessment: Lung cancer, status post wedge resection and mediastinal lymph node dissection 12/27/2023, pathology consistent with squamous cell carcinoma, status post completion right upper lobectomy History of tobacco dependence with recent cessation in December 2023 COPD Marijuana use Chronic back pain on chronic narcotics outpatient Anxiety/depression Plan: Continue chest tube to wall suction, monitor for airleak resolution Wean oxygen as tolerated. Encourage incentive spirometry use Increase activity, ambulate as tolerated Will monitor daily labs and x-rays GI/DVT prophylaxis Pain control with current medication regimen, patient has multiple medications ordered for better pain control Continue home medications More recommendations to follow
[2024-02-10 08:15] LABS: African American GFR (CKD) >90 (>60 ml/min/1.73 sqM); Anion Gap 4 mmol/L; Blood Urea Nitrogen 13 mg/dL (9-20); Carbon Dioxide 27 mmol/L (22-30); Chloride 103 mmol/L (98-107); Glucose 123 mg/dL (74-99); Non-African American GFR(CKD) >90 (>60 ml/min/1.73 sqM); Potassium 3.6 mmol/L (3.5-5.1); Sodium 134 mmol/L (137-145)
[2024-02-10] MEDS: methocarbamoL 500 MG TAB PO PRN (11:29)
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
[2024-02-10] MEDS: BUDESONIDE 0.5 MG/2 ML NEBU INHALATION SCH (20:56)
[2024-02-10] MEDS: ONDANSETRON 4 MG/2 ML VIAL IVP PRN (23:07)
[2024-02-10 23:40] LABS: Glucose,Whole Blood 114 mg/dL (70-110)
[2024-02-10] MEDS: FUROSEMIDE 10 MG/ML 4 ML VIAL IV STA (23:45)
[2024-02-10] MEDS: DEXTROSE 5% IN WATER 100 ML with AMIODARONE 150 MG IV ONE (23:46)
[2024-02-11] MEDS: DEXTROSE 5% IN WATER 100 ML with AMIODARONE 150 MG IV ONE ×4 (00:09→08:33)
[2024-02-11] MEDS: AMIODARONE 360 MG in DEXTROSE 5% IN WATER 200 ML IV ONE (00:47)
[2024-02-11 01:43] LABS: Basophils % (A) 0 %; Eosinophils % (A) 0 %; HGB 12.4 gm/dL (13.0-17.5); Lymphocytes # (A) 1.4 k/uL (1.0-4.8); Lymphocytes % (A) 11 %; MCH 29.5 pg (25.0-35.0); MCHC 32.6 g/dL (31.0-37.0); MCV 90.7 fL (80.0-100.0); Mean Platelet Volume 7.8; Monocytes # (A) 0.5 k/uL (0-1.0); Monocytes % (A) 4 %; Neutrophils % (A) 85 %; Platelet Count 196 k/uL (150-450); RBC 4.18 m/uL (4.30-5.90); RDW 13.5 % (11.5-15.5)
[2024-02-11 01:52] LABS: African American GFR (CKD) >90 (>60 ml/min/1.73 sqM); Anion Gap 5 mmol/L; Blood Urea Nitrogen 14 mg/dL (9-20); Calcium 8.3 mg/dL (8.4-10.2); Carbon Dioxide 27 mmol/L (22-30); Chloride 102 mmol/L (98-107); Glucose 135 mg/dL (74-99); Magnesium 2.1 mg/dL (1.6-2.3); Non-African American GFR(CKD) 81 (>60 ml/min/1.73 sqM); Potassium 3.7 mmol/L (3.5-5.1); Sodium 134 mmol/L (137-145)
--- NOTE | 2024-02-11 02:02 | XR ---
EXAM: XR Chest, 1 View CLINICAL HISTORY: ITS.REASON XR Reason: shortness of breath TECHNIQUE: Frontal view of the chest. COMPARISON: 02/10/2024 IMPRESSION: Worsening right hilar/upper lobe opacity
[2024-02-11] MEDS: METOPROLOL TARTRATE 12.5 MG TAB PO STA (03:40)
[2024-02-11] MEDS: AMIODARONE 450 MG in DEXTROSE 5% IN WATER 250 ML IV SCH (06:16)
[2024-02-11 07:37] LABS: HCT 37.9 % (39.0-53.0); HGB 12.6 gm/dL (13.0-17.5); MCH 29.9 pg (25.0-35.0); MCHC 33.2 g/dL (31.0-37.0); MCV 90.3 fL (80.0-100.0); Mean Platelet Volume 7.8; Platelet Count 240 k/uL (150-450); RBC 4.19 m/uL (4.30-5.90); RDW 13.5 % (11.5-15.5); WBC 13.4 k/uL (3.8-10.6)
--- NOTE | 2024-02-11 07:44 | P.PN ---
Subjective Progress Note Date: 02/11/24 Principal diagnosis: Lung cancer, status post wedge resection and mediastinal lymph node dissection 12/27/2023, pathology consistent with squamous cell carcinoma. History of tobacco dependence with recent cessation in December 2023, COPD, marijuana use, chronic back pain on chronic narcotics outpatient, anxiety/depression POD #2 robotic assisted thoracoscopic completion right upper lobectomy Paroxysmal atrial fibrillation, unexpected but known potential complication after lung cancer surgery The patient was seen and examined sitting up in a recliner on the cardiac stepdown unit in no acute distress although does complain of expected postsurgical pain in his chest tube site including when taking a deep breath. Patient went into rapid atrial fibrillation last night, was loaded with IV amnio, currently on amiodarone drip but remains in atrial fibrillation. Patient at that time had significant increase in pain and shortness of breath, chest x- ray obtained and reviewed. Oxygen was placed on patient for comfort, on necessary as patient is not and was not hypoxic, removed this morning. Patient has maintained in the mid 90s on room air. Able to achieve 1500 mL on his incentive spirometry. Patient did cough up some bloody sputum. Lasix was also given in the middle of the night, patient unable to empty bladder completely and did require straight cath x 1, was able to void 585 mL after straight cath. Right pleural chest tube present to waterseal with no airleak seen this morning. Chest x-ray, labs reviewed. Reassured patient that this is all typical posto perative course for lobectomy after lung cancer. No other new concerns. Objective - Vital Signs Vital signs: Vital Signs Temp 99.0 F 02/10/24 19:36 Pulse 104 H 02/11/24 04:00 Resp 20 02/11/24 02:00 BP 104/57 02/11/24 04:00 Pulse Ox 94 L 02/11/24 02:00 FiO2 Intake & Output 02/10/24 02/11/24 02/11/24 18:59 06:59 18:59 Intake Total 240 880 Output Total 110 2245 Balance 130 -1365 Weight 103.1 kg Intake: Intake, IV Titration 400 Amount Dextrose 5% in Water 100 100 ml @ 618 mls/hr IV .Q10M ONE with Amiodarone 150 mg Rx#:[id number] Dextrose 5% in Water 100 100 ml @ 618 mls/hr IV .Q10M ONE with Amiodarone 150 mg Rx#:[id number] Dextrose 5% in Water 100 100 ml @ 618 mls/hr IV .Q10M ONE with Amiodarone 150 mg Rx#:[id number] Dextrose 5% in Water 100 100 ml @ 618 mls/hr IV .Q10M ONE with Amiodarone 150 mg Rx#:[id number] Oral 240 480 Output: Chest Tube Drainage 110 180 Chest Tube Right 110 180 Drainage 130 Right Chest 130 Urine 1935 Straight 1000 Other: Voiding Method Indwelling Catheter Urinal # Voids 2 - Exam CONSTITUTIONAL: Appears somewhat comfortable, cooperative, no acute distress RESPIRATORY: Lungs sounds diminished bilaterally with expiratory wheeze present. Respirations even, nonlabored. Currently on room air with oxygen s aturation 94%. Able to achieve 1500 mL on incentive spirometry. Strong productive cough. CARDIOVASCULAR: S1, S2 present. Irregular rate and rhythm, atrial fibrillation on telemetry. Palpable peripheral pulses bilaterally. No edema present. No calf pain or tenderness noted. SCDs present. GASTROINTESTINAL: Abdomen soft, nontender, nondistended. Active bowel sounds present 4 quadrants. Tolerating diet GENITOURINARY: Was straight cathed x 1 this morning after given IV Lasix, has been able to void since INTEGUMENTARY: Skin is warm and dry with evidence of good perfusion. Thoracic incision well approximated and covered with dry intact dressing. NEUROLOGIC: Cranial nerves II through XII intact MUSKULOSKELETAL: Able to move all extremities, strength equal bilaterally PSYCHIATRIC: Alert and oriented to person place and time, appropriate affect, intact judgment and insight INVASIVE LINES AND TUBES: Right pleural chest tubes present to waterseal, no air leak this morning, 130 mL serosanguineous drainage overnight, 300 mL in the last 24 hours - Allied health notes Allied health notes reviewed: nursing - Labs CBC & Chem 7: 02/11/24 07:04 02/11/24 07:04 Labs: Abnormal Lab Results - Last 24 Hours (Table) 02/10/24 02/10/24 02/11/24 Range/Units 06:39 23:39 01:10 WBC 13.0 H (3.8-10.6) k/uL RBC 4.18 L (4.30-5.90) m/uL Hgb 12.4 L (13.0-17.5) gm/dL Hct 38.0 L (39.0-53.0) % Neutrophils # 11.0 H (1.3-7.7) k/uL Sodium 134 L (137-145) mmol/L Glucose 123 H (74-99) mg/dL POC Glucose (mg/dL) 114 H (70-110) mg/dL Calcium 8.0 L (8.4-10.2) mg/dL 02/11/24 Range/Units 01:10 WBC (3.8-10.6) k/uL RBC (4.30-5.90) m/uL Hgb (13.0-17.5) gm/dL Hct (39.0-53.0) % Neutrophils # (1.3-7.7) k/uL Sodium 134 L (137-145) mmol/L Glucose 135 H (74-99) mg/dL POC Glucose (mg/dL) (70-110) mg/dL Calcium 8.3 L (8.4-10.2) mg/dL - Imaging and Cardiology Chest x-ray: image reviewed Assessment and Plan Assessment: Lung cancer, status post wedge resection and mediastinal lymph node dissection 12/27/2023, pathology consistent with squamous cell carcinoma, status post completion right upper lobectomy History of tobacco dependence with recent cessation in December 2023 COPD Marijuana use Chronic back pain on chronic narcotics outpatient Anxiety/depression Plan: Continue right pleural chest tube to waterseal Continue amiodarone, transition to oral, no anticoagulation at this time Will start low-dose beta-daniele Patient to undergo bronchoscopy by Dr. An at this afternoon versus tomorrow morning, currently n.p.o. Encourage incentive spirometry use Increase activity, ambulate as tolerated Will monitor daily labs and x-rays GI/DVT prophylaxis Pain control with current medication regimen, patient has multiple medications ordered for better pain control Continue home medications More recommendations to follow
[2024-02-11 07:53] LABS: African American GFR (CKD) >90 (>60 ml/min/1.73 sqM); Anion Gap 7 mmol/L; Blood Urea Nitrogen 13 mg/dL (9-20); Calcium 8.3 mg/dL (8.4-10.2); Carbon Dioxide 30 mmol/L (22-30); Chloride 98 mmol/L (98-107); Glucose 140 mg/dL (74-99); Non-African American GFR(CKD) 79 (>60 ml/min/1.73 sqM); Potassium 4.2 mmol/L (3.5-5.1); Sodium 135 mmol/L (137-145)
--- NOTE | 2024-02-11 08:15 | XR ---
EXAMINATION TYPE: XR chest 2V DATE OF EXAM: 02/11/2024 6:34 AM COMPARISON: 02/10/2024 , 02/09/2024 CLINICAL INDICATION: Male, 63 years old with history of post lobectomy, TECHNIQUE: XR chest 2V view(s) obtained. FINDINGS: The heart size is normal. The pulmonary vasculature is normal. There is a large right hilar mass. This is new from 02/08/2024 Consider hematoma. Right-sided chest t ube is present. IMPRESSION: 1. Large right suprahilar mass. Consider underlying hematoma. CT as clinically indicated [facility], , 02/11/2024 8:13 AM
[2024-02-11] MEDS: SENNOSIDES-DOCUSATE SODIUM 1 EACH TAB PO SCH (08:32)
[2024-02-11] MEDS: METOPROLOL TARTRATE 12.5 MG TAB PO SCH (08:33)
[2024-02-11] MEDS: AMIODARONE 200 MG TAB PO SCH (08:33)
[2024-02-11] MEDS: MAGNESIUM HYDROXIDE 2,400 MG/30 ML CUP PO PRN (08:33)
--- NOTE | 2024-02-11 12:25 | P.PN ---
Subjective Progress Note Date: 02/11/24 February 11, 2024, patient was seen and re-evaluated today. He is status post postop day 2. For a right lobectomy. He has hematoma noted per chest x-ray. He developed atrial fibrillation overnight. This morning he reports he just does not feel very well. He denies any other symptoms other some mild chest pain and shortness of breath when he exerts himself. Denies any nausea or vomiting. He has not had a bowel movement. His vital signs all remained stable. He needs to have a chest tube in place. Objective - Vital Signs Vital signs: Vital Signs Temp 98.2 F 02/11/24 08:20 Pulse 90 02/11/24 12:07 Resp 20 02/11/24 08:20 BP 96/57 02/11/24 08:20 Pulse Ox 97 02/11/24 08:53 FiO2 Intake & Output 02/10/24 02/11/24 02/11/24 18:59 06:59 18:59 Intake Total 240 880 120 Output Total 110 2245 Balance 130 -1365 120 Weight 103.1 kg Intake: Intake, IV Titration 400 Amount Dextrose 5% in Water 100 100 ml @ 618 mls/hr IV .Q10M ONE with Amiodarone 150 mg Rx#:[id number] Dextrose 5% in Water 100 100 ml @ 618 mls/hr IV .Q10M ONE with Amiodarone 150 mg Rx#:[id number] Dextrose 5% in Water 100 100 ml @ 618 mls/hr IV .Q10M ONE with Amiodarone 150 mg Rx#:[id number] Dextrose 5% in Water 100 100 ml @ 618 mls/hr IV .Q10M ONE with Amiodarone 150 mg Rx#:[id number] Oral 240 480 120 Output: Chest Tube Drainage 110 180 Chest Tube Right 110 180 Drainage 130 Right Chest 130 Urine 1935 Straight 1000 Other: Voiding Method Indwelling Catheter Urinal Urinal # Voids 2 - Exam GENERAL:fatigued male and in no acute distress. NECK: Normal range of motion, supple without lymphadenopathy or JVD, no thyromegaly LUNGS: Breath sounds coare to auscultation bilaterally and equal. No wheezes rales or rhonchi. Chest tube is in place HEART: Regular rate and rhythm without murmurs, rubs or gallops.S1S2 Normal ABDOMEN: Soft, nontender, normoactive bowel sounds. No guarding, no rebound. No masses appreciated. EXTREMITIES: Normal range of motion, no pitting or edema. No clubbing or cyanosis. NEUROLOGICAL: Cranial nerves II through XII grossly intact. Normal speech, normal gait. PSYCH: Normal mood, normal affect. SKIN: Warm, Dry, normal turgor, no rashes or lesions noted. - Labs CBC & Chem 7: 02/11/24 07:04 02/11/24 07:04 Labs: Abnormal Lab Results - Last 24 Hours (Table) 02/10/24 02/11/24 02/11/24 Range/Units 23:39 01:10 01:10 WBC 13.0 H (3.8-10.6) k/uL RBC 4.18 L (4.30-5.90) m/uL Hgb 12.4 L (13.0-17.5) gm/dL Hct 38.0 L (39.0-53.0) % Neutrophils # 11.0 H (1.3-7.7) k/uL Sodium 134 L (137-145) mmol/L Glucose 135 H (74-99) mg/dL POC Glucose (mg/dL) 114 H (70-110) mg/dL Calcium 8.3 L (8.4-10.2) mg/dL 02/11/24 02/11/24 Range/Units 07:04 07:04 WBC 13.4 H (3.8-10.6) k/uL RBC 4.19 L (4.30-5.90) m/uL Hgb 12.6 L (13.0-17.5) gm/dL Hct 37.9 L (39.0-53.0) % Neutrophils # (1.3-7.7) k/uL Sodium 135 L (137-145) mmol/L Glucose 140 H (74-99) mg/dL POC Glucose (mg/dL) (70-110) mg/dL Calcium 8.3 L (8.4-10.2) mg/dL Assessment and Plan (1) S/P lobectomy of lung Current Visit: Yes Status: Acute Code(s): Z90.2 - ACQUIRED ABSENCE OF LUNG [PART OF] SNOMED Code(s): 51036065602637993 (2) Squamous cell lung cancer Current Visit: Yes Status: Acute Code(s): C34.90 - MALIGNANT NEOPLASM OF UNSP PART OF UNSP BRONCHUS OR LUNG SNOMED Code(s): 910821873 (3) Anxiety Current Visit: No Status: Acute Code(s): F41.9 - ANXIETY DISORDER, UNSPECIFIED SNOMED Code(s): 42030644 (4) COPD (chronic obstructive pulmonary disease) Current Visit: No Status: Acute Code(s): J44.9 - CHRONIC OBSTRUCTIVE PULMONARY DISEASE, UNSPECIFIED SNOMED Code(s): 77564061 (5) New onset atrial fibrillation Current Visit: Yes Status: Acute Code(s): I48.91 - UNSPECIFIED ATRIAL FIBRILLATION SNOMED Code(s): 13694871 Plan: The patient continues to be monitored by thoracic surgery underwent a lobectomy of the right lung with lung cancer. He did have a febrile atrial fibrillation. He is hemodynamically stable at this time. We will repeat labs in a.m. and re- evaluate with his 24 hours.
--- NOTE | 2024-02-11 13:35 | P.PN ---
Subjective Progress Note Date: 02/11/24 Principal diagnosis: This is a 63-year-old white male familiar to my service from his last admission. Patient had history of enlarging right upper lobe mass with positive PET scan, and there was negative PET scan for metastasis. Patient was referred to Dr. Winston and he underwent wedge resection and mediastinal lymph node dissection, final pathology came back showing that the patient had a T1b disease, margin of the wedge resection was negative, lymph nodes were negative patient was advised postoperatively to undergo lobectomy to increase the likelihood of curative resection. Yesterday patient underwent robotic assisted thoracoscopic completion of right upper lobectomy and this was done by Dr. Winston again postoperatively we were asked to see the patient in consultation considering his underlying history of COPD and he normally sees Dr. Lynn for his pulmonary iss ues. His last thoracic surgery was about 6 weeks ago, patient had a baseline FEV1 of 61%, he had a [id number] smoking history during my evaluation today, patient is doing well, asymptomatic, continues to have right-sided chest tube in place, no cough no wheezing no shortness of breath, pain seems to be relatively well-controlled. Patient is maintained on bronchodilators in the form of DuoNeb, and and Perforomist postoperative chest x-ray showed right medial upper lung consolidation post lobectomy chest tube is noted to be present in the right apex. Patient is a today on 02/11/2024, patient had worsening pulmonary status over the last 24 hours, he developed atrial fibrillation with RVR requiring placement on amiodarone, patient also left worsening appearance of his chest x-ray with a right middle lobe consolidation, possible atelectasis, surgery reviewed his chest x-ray, and recommended bronchoscopy and evaluation of the right middle lobe. Patient had recent right upper lobectomy. No evidence of pneumothorax, no evidence of air leak, chest tube seems to be in the proper position. Patient is now on amiodarone, rate seems to be fairly well-controlled. However based on the chest x-ray findings I believe the patient may benefit from bronchoscopy and BAL of the right middle lobe. WBC count is 13.4 hemoglobin 12.6 electrolytes are normal renal profile is normal Objective - Vital Signs Vital signs: Vital Signs Temp 98.2 F 02/11/24 08:20 Pulse 90 02/11/24 12:07 Resp 18 02/11/24 12:00 BP 139/78 11/16/24 12:00 Pulse Ox 95 02/11/24 12:00 FiO2 Intake & Output 02/10/24 02/11/24 02/11/24 18:59 06:59 18:59 Intake Total 240 880 120 Output Total 110 2245 Balance 130 -1365 120 Weight 103.1 kg Intake: Intake, IV Titration 400 Amount Dextrose 5% in Water 100 100 ml @ 618 mls/hr IV .Q10M ONE with Amiodarone 150 mg Rx#:[id number] Dextrose 5% in Water 100 100 ml @ 618 mls/hr IV .Q10M ONE with Amiodarone 150 mg Rx#:[id number] Dextrose 5% in Water 100 100 ml @ 618 mls/hr IV .Q10M ONE with Amiodarone 150 mg Rx#:[id number] Dextrose 5% in Water 100 100 ml @ 618 mls/hr IV .Q10M ONE with Amiodarone 150 mg Rx#:[id number] Oral 240 480 120 Output: Chest Tube Drainage 110 180 Chest Tube Right 110 180 Drainage 130 Right Chest 130 Urine 1935 Straight 1000 Other: Voiding Method Indwelling Catheter Urinal Urinal # Voids 2 2 - Exam GENERAL EXAM: Alert, pleasant 63-year-old male patient, on room air O2 saturation 95% HEAD: Normocephalic. Atraumatic EYES: Normal reaction of pupils, equal size. NOSE: Clear with pink turbinates. THROAT: No erythema or exudates. NECK: No masses, no JVD. CHEST: No chest wall deformity. Right-sided chest tube in place to Pleur-evac LUNGS: Equal air entry with faint crackles in the right lung base. CVS: S1 and S2 normal with no audible murmur, regular rhythm. ABDOMEN: No hepatosplenomegaly, normal bowel sounds, no guarding or rigidity. SKIN: No rashes CENTRAL NERVOUS SYSTEM: Alert and oriented x 3 no gross focal deficit EXTREMITIES: No clubbing edema or cyanosis - Labs CBC & Chem 7: 02/11/24 07:04 02/11/24 07:04 Labs: Abnormal Lab Results - Last 24 Hours (Table) 02/10/24 02/11/24 02/11/24 Range/Units 23:39 01:10 01:10 WBC 13.0 H (3.8-10.6) k/uL RBC 4.18 L (4.30-5.90) m/uL Hgb 12.4 L (13.0-17.5) gm/dL Hct 38.0 L (39.0-53.0) % Neutrophils # 11.0 H (1.3-7.7) k/uL Sodium 134 L (137-145) mmol/L Glucose 135 H (74-99) mg/dL POC Glucose (mg/dL) 114 H (70-110) mg/dL Calcium 8.3 L (8.4-10.2) mg/dL 02/11/24 02/11/24 Range/Units 07:04 07:04 WBC 13.4 H (3.8-10.6) k/uL RBC 4.19 L (4.30-5.90) m/uL Hgb 12.6 L (13.0-17.5) gm/dL Hct 37.9 L (39.0-53.0) % Neutrophils # (1.3-7.7) k/uL Sodium 135 L (137-145) mmol/L Glucose 140 H (74-99) mg/dL POC Glucose (mg/dL) (70-110) mg/dL Calcium 8.3 L (8.4-10.2) mg/dL Assessment and Plan Assessment: Impression: Status post robotic assisted right upper lobectomy, patient had recent wedge resection for 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 Patient is now on amiodarone. Recommendation: Will arrange for bronchoscopy and BAL of the right middle lobe today Discussed condition with thoracic surgery on the case, recommending bronc with BAL Continue present postoperative care Continue bronchodilators Continue incentive spirometry Daily x-rays of the chest while chest tube is in place Ambulate Will continue to follow Time with Patient: Less than 30
[2024-02-11] MEDS: LACTATED RINGERS 1,000 ML IV ONE ×2 (13:50→14:18)
[2024-02-11] MEDS ORDERED: MIDAZOLAM 2 MG/2 ML VIAL ONE (13:59)
[2024-02-11] MEDS ORDERED: PROPOFOL 10 MG/ML 20 ML VIAL IV ONE (13:59)
[2024-02-11] MEDS ORDERED: KETAMINE HCL IN 0.9 % NACL 50 MG/5 ML SYRINGE ONE (13:59)
[2024-02-11] MEDS: LIDOCAINE 2% INJ 20 MG/ML INTRATRACH ONE (14:18)
--- NOTE | 2024-02-11 15:31 | XR ---
EXAMINATION TYPE: XR chest 1V portable DATE OF EXAM: 02/11/2024 3:17 PM COMPARISON: Chest radiographs from 02/10/2024. CLINICAL INDICATION: Male, 63 years old with history of Post bronchoscopy; [facility] TECHNIQUE: XR chest 1V portable Frontal view of the chest. FINDINGS: Lungs/Pleura: There is no evidence of pleural effusion, focal consolidation, or pneumothorax. Pulmonary vascularity: Unremarkable. Heart/mediastinum: Cardiomediastinal silhouette is unremarkable. Musculoskeletal: No acute osseous pathology. IMPRESSION: Right thoracotomy tube with small to moderate pneumothorax with consolidation changes the right upper lung versus atelectasis. Similar to same day exam at 634. [facility], , 02/11/2024 3:28 PM
[2024-02-11] MEDS: bisacodyL 10 MG SUPP RECTAL STA (18:00)
[2024-02-11] MEDS: ASPIRIN 325 MG TAB PO SCH (21:26)
--- NOTE | 2024-02-11 21:57 | OP ---
OPERATIVE REPORT DATE OF SERVICE : PROCEDURES PERFORMED: Bronchoscopy and bronchoalveolar lavage of the right middle lobe. PREOPERATIVE DIAGNOSES: Right middle lobe atelectasis, possible endobronchial mucous plug. POSTOPERATIVE DIAGNOSES: Right middle lobe atelectasis with narrowing of the right middle lobe bronchus and narrowing of the medial segment bronchus as well as the lateral segment bronchus with the right middle lobe collapse. Again, no evidence of endobronchial tumor or mucus plugs. ANESTHESIA USED: IV conscious sedation. DESCRIPTION OF PROCEDURE: The patient was prepared according to the bronchoscopy protocol. O2 was applied via Ventimask, the patient was placed in a supine position, we monitored his O2 saturation continuously, cardiac rhythm was continuously monitored, blood pressure was intermittently monitored. A bite block was applied and after adequate IV conscious sedation, the bronchoscope was advanced through the bite block down to the area of the vocal cords. Lidocaine was applied over the vocal cords, and the bronchoscope was advanced further down to the trachea. There was evidence of a small amount of blood noted on the tracheal mucosa and on the other bronchial mucosa, but the blood was minimal, and was easily suctioned. The mucosa was noted to be friable. Then, thorough examination was done of the left upper lobe lingula and left lower lobe, there was no evidence of any endobronchial lesions on the left side. Examination of the right side showed there is a surgical absence of the right upper lobe, I could see the surgical stump in the right upper lobe area, but no right upper lobe obviously was present. Then, as we entered the right middle lobe, there was evidence of narrowing/extreme narrowing of the right middle lobe bronchus, mucosa was a bit thickened, and there was minimal bleeding noted from the mucosa. I was able to get into the area of the right middle lobe by injecting saline, and I could visualize narrowing of the medial segment of the right middle lobe and the lateral segment of the right middle lobe. Again, there was no evidence of any endobronchial tumors. There was no evidence of endobronchial mucous plugs. Lavage of the right middle lobe was done, fluid was sent for different diagnostic studies, the procedure was well tolerated, no complications. The right lower lobe was noted to be normal. MMODL / IJN: [id number] /
[2024-02-12] MEDS: ACETAMINOPHEN TAB 325 MG TAB PO PRN (03:28)
[2024-02-12 05:54] LABS: Glucose,Whole Blood 128 mg/dL (70-110)
[2024-02-12 07:35] LABS: HCT 33.1 % (39.0-53.0); HGB 11.1 gm/dL (13.0-17.5); MCH 30.4 pg (25.0-35.0); MCHC 33.7 g/dL (31.0-37.0); MCV 90.2 fL (80.0-100.0); Mean Platelet Volume 8.4; Platelet Count 209 k/uL (150-450); RBC 3.67 m/uL (4.30-5.90); RDW 13.4 % (11.5-15.5); WBC 11.5 k/uL (3.8-10.6)
--- NOTE | 2024-02-12 07:37 | P.PN ---
Subjective Progress Note Date: 02/12/24 Principal diagnosis: Lung cancer, status post wedge resection and mediastinal lymph node dissection 12/27/2023, pathology consistent with squamous cell carcinoma. History of tobacco dependence with recent cessation in December 2023, COPD, marijuana use, chronic back pain on chronic narcotics outpatient, anxiety/depression POD #3 robotic assisted thoracoscopic completion right upper lobectomy Paroxysmal atrial fibrillation, unexpected but known potential complication after lung cancer surgery Right middle lobe atelectasis with narrowing of the right middle lobe bronchus and narrowing of the medial segment bronchus as well as the lateral segment bronchus with right middle lobe collapse POD #1 bronchoscopy and bronchoalveolar lavage of the right middle lobe The patient was seen and examined sitting up in a recliner on the cardiac stepdown unit in no acute distress although does complain of expected postsurgical pain. Patient did have episode of sharp chest pain this morning which is mostly resolved with IV Dilaudid. No EKG changes. Converted back to sinus rhythm yesterday and remains in sinus rhythm without further episodes of atrial fibrillation. Was started on oral amnio, oral beta-daniele, aspirin yesterday. Patient has maintained in the mid 90s on room air. Able to achieve 1500 mL on his incentive spirometry. He did undergo a bronchoscopy yesterday by Dr. An due to findings on chest x-ray, no mucous plug or endobronchial tumor was found, significant narrowing of the right middle lobe bronchus with right middle lobe collapse was found. Bronchoalveolar lavage was completed and fluid was sent for diagnostic studies. Right pleural chest tube present to waterseal with no airleak seen this morning, 150 mL serosanguineous drainage in the last 24 hours. Chest x-ray reviewed, labs pending. No other new concerns. Objective - Vital Signs Vital signs: Vital Signs Temp 98.0 F 02/12/24 04:00 Pulse 72 02/12/24 05:49 Resp 22 02/12/24 05:49 BP 129/71 02/12/24 05:49 Pulse Ox 94 L 02/12/24 05:49 FiO2 Intake & Output 02/11/24 02/12/24 02/12/24 18:59 06:59 18:59 Intake Total 320 1210 Output Total 460 600 Balance -140 610 Weight 98.6 kg Intake: IV 200 Intake, IV Titration 250 Amount Amiodarone 450 mg In 250 Dextrose 5% in Water 250 ml @ 0.5 MG/MIN 16.667 mls/hr IV .Q15H [facility] Rx#: [id number] Oral 120 960 Output: Chest Tube Drainage 60 60 Chest Tube Right 60 60 Urine 400 540 Other: Voiding Method Urinal Urinal # Voids 2 1 - Exam CONSTITUTIONAL: Appears somewhat comfortable, cooperative, no acute distress RESPIRATORY: Lungs sounds coarse on the right, clear on the left. Respirations even, nonlabored. Currently on room air with oxygen saturation 94%. Able to achieve 1500 mL on incentive spirometry. Strong cough. CARDIOVASCULAR: S1, S2 present. Regular rate and rhythm, sinus rhythm on telemetry. Palpable peripheral pulses bilaterally. No edema present. No calf pain or tenderness noted. SCDs present. GASTROINTESTINAL: Abdomen soft, nontender, nondistended. Active bowel sounds present 4 quadrants. Tolerating diet. Positive flatus, negative bowel movement since surgery, refused suppository yesterday GENITOURINARY: Continues to void INTEGUMENTARY: Skin is warm and dry with evidence of good perfusion. Thoracic incision well approximated and covered with dry intact dressing. NEUROLOGIC: Cranial nerves II through XII intact MUSKULOSKELETAL: Able to move all extremities, strength equal bilaterally PSYCHIATRIC: Alert and oriented to person place and time, appropriate affect, intact judgment and insight INVASIVE LINES AND TUBES: Right pleural chest tubes present to waterseal, no air leak this morning, 40 mL serosanguineous drainage overnight, 150 mL in the last 24 hours - Allied health notes Allied health notes reviewed: nursing - Labs CBC & Chem 7: 02/11/24 07:04 02/11/24 07:04 Labs: Abnormal Lab Results - Last 24 Hours (Table) 02/11/24 02/11/24 02/12/24 Range/Units 07:04 07:04 05:52 WBC 13.4 H (3.8-10.6) k/uL RBC 4.19 L (4.30-5.90) m/uL Hgb 12.6 L (13.0-17.5) gm/dL Hct 37.9 L (39.0-53.0) % Sodium 135 L (137-145) mmol/L Glucose 140 H (74-99) mg/dL POC Glucose (mg/dL) 128 H (70-110) mg/dL Calcium 8.3 L (8.4-10.2) mg/dL - Imaging and Cardiology Chest x-ray: image reviewed Assessment and Plan Assessment: Lung cancer, status post wedge resection and mediastinal lymph node dissection 12/27/2023, pathology consistent with squamous cell carcinoma, status post completion right upper lobectomy Right middle lobe atelectasis with narrowing of the right middle lobe bronchus and narrowing of the medial segment bronchus as well as the lateral segment bronchus with right middle lobe collapse, status post bronchoscopy and bronchoalveolar lavage of the right middle lobe Paroxysmal atrial fibrillation, unexpected but known common complication after lung cancer surgery, currently sinus History of tobacco dependence with recent cessation in December 2023 COPD Marijuana use Chronic back pain on chronic narcotics outpatient Anxiety/depression Plan: Will discontinue right pleural chest tube Continue amiodarone, no anticoagulation at this time. Continue low-dose beta- daniele, aspirin Encourage incentive spirometry use Increase activity, ambulate as tolerated Will monitor daily labs and x-rays GI/DVT prophylaxis Pain control with current medication regimen, patient has multiple medications ordered for better pain control Continue home medications More recommendations to follow
[2024-02-12 07:58] LABS: African American GFR (CKD) 88 (>60 ml/min/1.73 sqM); Anion Gap 6 mmol/L; Blood Urea Nitrogen 23 mg/dL (9-20); Carbon Dioxide 30 mmol/L (22-30); Chloride 95 mmol/L (98-107); Glucose 111 mg/dL (74-99); Magnesium 2.6 mg/dL (1.6-2.3); Non-African American GFR(CKD) 76 (>60 ml/min/1.73 sqM); Potassium 4.6 mmol/L (3.5-5.1); Sodium 131 mmol/L (137-145)
--- NOTE | 2024-02-12 08:06 | XR ---
EXAMINATION TYPE: XR chest 2V DATE OF EXAM: 02/12/2024 6:42 AM COMPARISON: 02/11/2024 CLINICAL INDICATION: Male, 63 years old with history of Post right upper lobectomy, TECHNIQUE: XR chest 2V view(s) obtained. FINDINGS: The heart size is normal. The pulmonary vasculature is normal. The lungs are clear. Right-sided chest tube is present. No pneumothorax evident. There is a large right mediastinal mass, is new from 02/09/2024 appears stable from the most recent c omparison. IMPRESSION: 1. Stable appearance right mediastinal mass [facility], , 02/12/2024 8:03 AM
[2024-02-12] MEDS: SENNOSIDES-DOCUSATE SODIUM 1 EACH TAB PO SCH (08:23)
[2024-02-12] MEDS: bisacodyL 10 MG SUPP RECTAL SCH (08:23)
--- NOTE | 2024-02-12 12:10 | P.PN ---
Subjective February 11, 2024, patient was seen and re-evaluated today. He is status post postop day 2. For a right lobectomy. He has hematoma noted per chest x-ray. He developed atrial fibrillation overnight. This morning he reports he just does not feel very well. He denies any other symptoms other some mild chest pain and shortness of breath when he exerts himself. Denies any nausea or vomiting. He has not had a bowel movement. His vital signs all remained stable. He needs to have a chest tube in place. February 12, 2024: Patient is feeling a bit better today. He is postop day #3 for right lobectomy completion robot-assisted. He is postop day 1 bronchoscopy and BAL for collapsed right middle lung. He had developed atrial fibrillation and was placed on amiodarone. This is since resolved he is now in sinus rhythm. Vital signs are stable heart rate is normal in the 80s. Pulse oximetry normal at 96% on room air. Laboratory studies this morning show WBC count of 11.5 with hemoglobin 11.1. Hemoglobin is trending down slightly and white count is improving. Chemistries show a sodium 131 potassium 4 6 BUN 2 creatinine 1.04. Chest x-ray shows stable mediastinal right mass. Objective - Vital Signs Vital signs: Vital Signs Temp 98.1 F 02/12/24 08:10 Pulse 90 02/12/24 09:10 Resp 20 02/12/24 08:10 BP 119/61 02/12/24 08:10 Pulse Ox 96 02/12/24 08:59 FiO2 Intake & Output 02/11/24 02/12/24 02/12/24 18:59 06:59 18:59 Intake Total 320 1210 480 Output Total 460 600 Balance -140 610 480 Weight 98.6 kg Intake: IV 200 Intake, IV Titration 250 Amount Amiodarone 450 mg In 250 Dextrose 5% in Water 250 ml @ 0.5 MG/MIN 16.667 mls/hr IV .Q15H [facility] Rx#: [id number] Oral 120 960 480 Output: Chest Tube Drainage 60 60 Chest Tube Right 60 60 Urine 400 540 Other: Voiding Method Urinal Urinal Urinal # Voids 2 1 - Exam GENERAL:fatigued male and in no acute distress. NECK: Normal range of motion, supple without lymphadenopathy or JVD, no thyromegaly LUNGS: Breath sounds coare to auscultation bilaterally and equal. Chest tube has been removed, there is bilateral inspiratory wheezes, no rales at this time. HEART: Regular rate and rhythm without murmurs, rubs or gallops.S1S2 Normal ABDOMEN: Soft, nontender, normoactive bowel sounds. No guarding, no rebound. No masses appreciated. EXTREMITIES: Normal range of motion, no pitting or edema. No clubbing or cyanosis. NEUROLOGICAL: Cranial nerves II through XII grossly intact. Normal speech, normal gait. PSYCH: Normal mood, normal affect. SKIN: Warm, Dry, normal turgor, no rashes or lesions noted. - Labs CBC & Chem 7: 02/12/24 07:11 02/12/24 07:11 Labs: Abnormal Lab Results - Last 24 Hours (Table) 02/12/24 02/12/24 02/12/24 Range/Units 05:52 07:11 07:11 WBC 11.5 H (3.8-10.6) k/uL RBC 3.67 L (4.30-5.90) m/uL Hgb 11.1 L (13.0-17.5) gm/dL Hct 33.1 L (39.0-53.0) % Sodium 131 L (137-145) mmol/L Chloride 95 L (98-107) mmol/L BUN 23 H (9-20) mg/dL Glucose 111 H (74-99) mg/dL POC Glucose (mg/dL) 128 H (70-110) mg/dL Calcium 8.0 L (8.4-10.2) mg/dL Magnesium 2.6 H (1.6-2.3) mg/dL Assessment and Plan (1) S/P lobectomy of lung Current Visit: Yes Status: Acute Code(s): Z90.2 - ACQUIRED ABSENCE OF LUNG [PART OF] SNOMED Code(s): 31279344714329124 (2) Squamous cell lung cancer Current Visit: Yes Status: Acute Code(s): C34.90 - MALIGNANT NEOPLASM OF UNSP PART OF UNSP BRONCHUS OR LUNG SNOMED Code(s): 640997282 (3) Anxiety Current Visit: No Status: Acute Code(s): F41.9 - ANXIETY DISORDER, UNSPECIFIED SNOMED Code(s): 01021698 (4) COPD (chronic obstructive pulmonary disease) Current Visit: No Status: Acute Code(s): J44.9 - CHRONIC OBSTRUCTIVE PULMONARY DISEASE, UNSPECIFIED SNOMED Code(s): 93739276 (5) New onset atrial fibrillation Current Visit: Yes Status: Acute Code(s): I48.91 - UNSPECIFIED ATRIAL FIBRILLATION SNOMED Code(s): 28385080 (6) Constipation Current Visit: Yes Status: Acute Code(s): K59.00 - CONSTIPATION, UNSPECIFIED SNOMED Code(s): 48907242 Plan: He remains on multiple stool softeners and agreed to a Dulcolax depository today. He is now in sinus rhythm and continues on amiodarone. He is on heparin subcu for DVT prophylaxis along with SCDs are in place. He has Toradol for pain metoprolol for hypertension and heart rate control, Bill Brii for mood along with Abilify. He is overall improved. Will reevaluate in the next 24 hours.
--- NOTE | 2024-02-12 12:20 | P.PN ---
Subjective Progress Note Date: 02/12/24 This is a 63-year-old white male familiar to my service from his last admission. Patient had history of enlarging right upper lobe mass with positive PET scan, and there was negative PET scan for metastasis. Patient was referred to Dr. Winston and he underwent wedge resection and mediastinal lymph node dissection, final pathology came back showing that the patient had a T1b disease, margin of the wedge resection was negative, lymph nodes were negative patient was advised postoperatively to undergo lobectomy to increase the likelihood of curative resection. Yesterday patient underwent robotic assisted thoracoscopic completion of right upper lobectomy and this was done by Dr. Winston again postoperatively we were asked to see the patient in consultation considering his underlying history of COPD and he normally sees Dr. Lynn for his pulmonary issues. His last thoracic surgery was about 6 weeks ago, patient had a baseline FEV1 of 61%, he had a [id number] smoking history during my evaluation today, patient is doing well, asymptomatic, continues to have right-sided chest tube in place, no cough no wheezing no shortness of breath, pain seems to be relatively well-controlled. Patient is maintained on bronchodilators in the form of DuoNeb, and and Perforomist postoperative chest x-ray showed right medial upper lung consolidation post lobectomy chest tube is noted to be present in the right apex. Patient is a today on 02/11/2024, patient had worsening pulmonary status over the last 24 hours, he developed atrial fibrillation with RVR requiring placement on amiodarone, patient also left worsening appearance of his chest x-ray with a right middle lobe consolidation, possible atelectasis, surgery reviewed his chest x-ray, and recommended bronchoscopy and evaluation of the right middle lobe. Patient had recent right upper lobectomy. No evidence of pneumothorax, no evidence of air leak, chest tube seems to be in the proper position. Patient is now on amiodarone, rate seems to be fairly well-controlled. However based on the chest x-ray findings I believe the patient may benefit from bronchoscopy and BAL of the right middle lobe. WBC count is 13.4 hemoglobin 12.6 electrolytes are normal renal profile is normal The patient is seen today February 12, 2024 in follow-up on the selective care unit. He is up ambulating in his room. Awake and alert in no acute distress. Maintaining good O2 saturations in the 90s on room air. He has been afebrile. Hemodynamically stable. Chest x-ray continues to show right middle lobe collapse. He did undergo bronchoscopy yesterday and there was no evidence of intrabronchial lesion or mucous plugging. Site of the right upper lobectomy clean. White count 11.5. Hemoglobin 11.1. Platelets 209. Sodium 131. Potassium 4.6. Bicarb 30. BUN 23. Creatinine 1.04. Glucose 111. Right sided chest tube removed per CT services this morning. He remains on bronchodilators. Heparin for DVT prophylaxis. Objective - Vital Signs Vital signs: Vital Signs Temp 98.1 F 02/12/24 08:10 Pulse 74 02/12/24 12:00 Resp 18 02/12/24 12:00 BP 120/60 02/12/24 12:00 Pulse Ox 95 02/12/24 12:00 FiO2 Intake & Output 02/11/24 02/12/24 02/12/24 18:59 06:59 18:59 Intake Total 320 1210 480 Output Total 460 600 Balance -140 610 480 Weight 98.6 kg Intake: IV 200 Intake, IV Titration 250 Amount Amiodarone 450 mg In 250 Dextrose 5% in Water 250 ml @ 0.5 MG/MIN 16.667 mls/hr IV .Q15H [facility] Rx#: [id number] Oral 120 960 480 Output: Chest Tube Drainage 60 60 Chest Tube Right 60 60 Urine 400 540 Other: Voiding Method Urinal Urinal Urinal # Voids 2 1 - Exam GENERAL EXAM: Alert, active, pleasant 63-year-old male, on room air, fairly comfortable in no apparent distress. HEAD: Normocephalic. EYES: Normal reaction of pupils, equal size. NOSE: Clear with pink turbinates. THROAT: No erythema or exudates. NECK: No masses, no JVD. CHEST: No chest wall deformity. Right sided chest tube dressing site dry and intact. LUNGS: Equal air entry with no crackles, wheeze, rhonchi or dullness. Diminished over the right lung. CVS: S1 and S2 normal with no audible murmur, regular rhythm. ABDOMEN: No hepatosplenomegaly, normal bowel sounds, no guarding or rigidity. SPINE: No scoliosis or deformity SKIN: No rashes CENTRAL NERVOUS SYSTEM: No focal deficits, tone is normal in all 4 extremities. EXTREMITIES: There is no peripheral edema. No clubbing, no cyanosis. Peripheral pulses are intact. - Labs CBC & Chem 7: 02/12/24 07:11 02/12/24 07:11 Labs: Abnormal Lab Results - Last 24 Hours (Table) 02/12/24 02/12/24 02/12/24 Range/Units 05:52 07:11 07:11 WBC 11.5 H (3.8-10.6) k/uL RBC 3.67 L (4.30-5.90) m/uL Hgb 11.1 L (13.0-17.5) gm/dL Hct 33.1 L (39.0-53.0) % Sodium 131 L (137-145) mmol/L Chloride 95 L (98-107) mmol/L BUN 23 H (9-20) mg/dL Glucose 111 H (74-99) mg/dL POC Glucose (mg/dL) 128 H (70-110) mg/dL Calcium 8.0 L (8.4-10.2) mg/dL Magnesium 2.6 H (1.6-2.3) mg/dL Assessment and Plan Assessment: Status post robotic assisted right upper lobectomy, patient had recent wedge resection for 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 Patient is now on amiodarone. Currently in sinus rhythm Plan: The patient was seen and evaluated Chest x-ray, labs and medications reviewed Chest tube removed this morning per CT service Stable and on room air Continued on bronchodilators Working well with the incentive spirometer Heparin for DVT prophylaxis Follow-up chest x-ray in a.m. We will continue to follow I have personally seen and examined the patient, performed the documentation and the assessment and plan as written. Number of minutes spent on the visit: 10 Dictation was produced using Ricebook[employer] software. Please excuse any grammatical, word or spelling errors.
[2024-02-12] MEDS: HYDROmorphone 0.5 MG/0.5 ML SYRINGE IVP PRN (13:47)
[2024-02-13] MEDS: DEXTROSE 5% IN WATER 100 ML with AMIODARONE 150 MG IV ONE ×3 (03:34→04:35)
[2024-02-13 06:42] LABS: HCT 34.9 % (39.0-53.0); HGB 11.3 gm/dL (13.0-17.5); MCH 29.5 pg (25.0-35.0); MCHC 32.3 g/dL (31.0-37.0); MCV 91.4 fL (80.0-100.0); Mean Platelet Volume 7.5; Platelet Count 265 k/uL (150-450); RBC 3.82 m/uL (4.30-5.90); WBC 9.7 k/uL (3.8-10.6)
[2024-02-13 06:52] LABS: Ionized Calcium 4.4 mg/dL (4.5-5.3)
[2024-02-13 06:54] LABS: ALT 26 U/L (4-49); AST 34 U/L (17-59); African American GFR (CKD) >90 (>60 ml/min/1.73 sqM); Albumin 3.3 g/dL (3.5-5.0); Alkaline Phosphatase 68 U/L (38-126); Anion Gap 3 mmol/L; Blood Urea Nitrogen 15 mg/dL (9-20); Calcium 7.8 mg/dL (8.4-10.2); Carbon Dioxide 28 mmol/L (22-30); Chloride 98 mmol/L (98-107); Glucose 118 mg/dL (74-99); Non-African American GFR(CKD) 79 (>60 ml/min/1.73 sqM); Potassium 4.5 mmol/L (3.5-5.1); Sodium 129 mmol/L (137-145); Total Bilirubin 0.9 mg/dL (0.2-1.3)
--- NOTE | 2024-02-13 08:21 | XR ---
EXAMINATION TYPE: XR chest 2V DATE OF EXAM: 02/13/2024 CLINICAL HISTORY: Status post right upper lobectomy TECHNIQUE: Frontal and lateral views of the chest are obtained. COMPARISON: 02/12/2024 FINDINGS: Right-sided chest tube has been removed with small right apical hydropneumothorax seen. [place] right medial lung right upper lobe noted unchanged. Left lung is clear. IMPRESSION: Right-sided chest tube has been removed with small right apical hydropneumothorax seen. [facility], , 02/13/2024 8:18 AM
[2024-02-13 08:51] VITALS: RESP 16; TEMP 98.1
[2024-02-13 12:18] VITALS: BP 101/63; PULSE 75
--- NOTE | 2024-02-13 13:58 | P.PN ---
Subjective Progress Note Date: 02/13/24 Principal diagnosis: Lung cancer. This is a 63-year-old white male familiar to my service from his last admission. Patient had history of enlarging right upper lobe mass with positive PET scan, and there was negative PET scan for metastasis. Patient was referred to Dr. Winston and he underwent wedge resection and mediastinal lymph node dissection, final pathology came back showing that the patient had a T1b disease, margin of the wedge resection was negative, lymph nodes were negative patient was advised postoperatively to undergo lobectomy to increase the likelihood of curative resection. Yesterday patient underwent robotic assisted thoracoscopic completion of right upper lobectomy and this was done by Dr. Winston again postoperatively we were asked to see the patient in consultation considering his underlying history of COPD and he normally sees Dr. Lynn for his pulmonary issues. His last thoracic surgery was about 6 weeks ago, patient had a baseline FEV1 of 61%, he had a [id number] smoking history during my evaluation today, patient is doing well, asymptomatic, continues to have right-sided chest tube in place, no cough no wheezing no shortness of breath, pain seems to be relatively well-controlled. Patient is maintained on bronchodilators in the form of DuoNeb, and and Perforomist postoperative chest x-ray showed right medial upper lung consolidation post lobectomy chest tube is noted to be present in the right apex. Patient is a today on 02/11/2024, patient had worsening pulmonary status over the last 24 hours, he developed atrial fibrillation with RVR requiring placement on amiodarone, patient also left worsening appearance of his chest x-ray with a right middle lobe consolidation, possible atelectasis, surgery reviewed his chest x-ray, and recommended bronchoscopy and evaluation of the right middle lobe. Patient had recent right upper lobectomy. No evidence of pneumothorax, no evidence of air leak, chest tube seems to be in the proper position. Patient is now on amiodarone, rate seems to be fairly well-controlled. However based on the chest x-ray findings I believe the patient may benefit from bronchoscopy and BAL of the right middle lobe. WBC count is 13.4 hemoglobin 12.6 electrolytes are normal renal profile is normal The patient is seen today February 12, 2024 in follow-up on the selective care unit. He is up ambulating in his room. Awake and alert in no acute distress. Maintaining good O2 saturations in the 90s on room air. He has been afebrile. Hemodynamically stable. Chest x-ray continues to show right middle lobe collapse. He did undergo bronchoscopy yesterday and there was no evidence of intrabronchial lesion or mucous plugging. Site of the right upper lobectomy clean. White count 11.5. Hemoglobin 11.1. Platelets 209. Sodium 131. Potassium 4.6. Bicarb 30. BUN 23. Creatinine 1.04. Glucose 111. Right sided chest tube removed per CT services this morning. He remains on bronchodilators. Heparin for DVT prophylaxis. Progress note dated February 13, 2024. 63-year-old male well-known to me. The patient is resting comfortably, in room 371. He is on room air. No IV fluids. The patient had a completion right upper lobectomy, for lung cancer. Previously he had a wedge resection of the lesion in the right upper lobe. Anyway, subsequent to the surgery, the patient has developed right middle lobe collapse. Bronchoscopy was performed by my partner. Currently, the patient is resting comfortably, he is awake and alert. He is using the incentive spirometer. Chest x-ray still continues to show a right middle lobe collapse. White count is 9.7, hemoglobin 11.3, hematocrit 34.9, platelet count 265,000. Sodium 129, potassium 4.5, chlorides 98, CO2 28, BUN 15, and creatinine 1.01. Calcium is 7.8. Ionized calcium is 4.4. Albumin is 3.3. Chest x-ray shows a small right apical pneumothorax. Objective - Vital Signs Vital signs: Vital Signs Temp 98.1 F 02/13/24 12:18 Pulse 75 02/13/24 12:18 Resp 16 02/13/24 12:18 BP 101/63 02/13/24 12:18 Pulse Ox 95 02/13/24 12:18 FiO2 Intake & Output 02/12/24 02/13/24 02/13/24 18:59 06:59 18:59 Intake Total 480 650 Output Total 550 550 Balance 480 100 -550 Weight 98.5 kg Intake: Oral 480 650 Output: Urine 550 550 Other: Voiding Method Urinal Urinal Urinal # Voids 2 2 # Bowel Movements 0 - Exam No acute distress, oriented 3. Currently on room air. HEENT examination is grossly unremarkable. Mucous membranes are moist. No oral lesions. Neck supple. Full range of motion. No adenopathy thyromegaly or neck vein dist ention. Cardiovascular examination reveals regular rhythm rate. S1-S2 normal. No S3 or S4. No discernible murmur noted. Lungs reveal minimal bilateral scattered rhonchi. No wheezes or crackles. Breath sounds equal. Abdomen soft bowel sounds are heard. No masses or tenderness. Extremities are intact. No cyanosis clubbing or edema. Skin is without rash or lesion. Neurologic examination is brief but nonfocal. - Labs CBC & Chem 7: 02/13/24 06:25 02/13/24 06:25 Labs: Abnormal Lab Results - Last 24 Hours (Table) 02/13/24 02/13/24 Range/Units 06:25 06:25 RBC 3.82 L (4.30-5.90) m/uL Hgb 11.3 L (13.0-17.5) gm/dL Hct 34.9 L (39.0-53.0) % Sodium 129 L (137-145) mmol/L Glucose 118 H (74-99) mg/dL Calcium 7.8 L (8.4-10.2) mg/dL Ionized Calcium Bradley 4.4 L (4.5-5.3) mg/dL Total Protein 6.0 L (6.3-8.2) g/dL Albumin 3.3 L (3.5-5.0) g/dL Assessment and Plan Assessment: Postop day #4, status post robotically assisted right upper lobectomy, for stage I bronchogenic carcinoma, squamous cell, T1b, N0 M0. Prior wedge resection, right upper lobe solitary pulmonary nodule, which was positive for squamous cell carcinoma, December 27, 2023. Right middle lobe atelectasis, status post bronchoscopy, February 11, 2024. Chronic and ongoing tobacco dependence of 48 years. COPD. Chronic back pain. Atrial fibrillation with RVR, post lobectomy. Plan: Plan dated February 13, 2024. The patient appears to be doing relatively well. Despite that he has some collapse of the right middle lobe, the patient is on room air. He is not manifesting any signs or symptoms of respiratory distress. The right sided chest tube has been removed. Labs, x-rays, and medications are reviewed. We will continue to follow make recommendations along the way. Prognosis is guarded. We do recommend deep breathing, coughing, clearing of secretions, and hourly use of the incentive spirometer. The patient's daughter is at the bedside. Time with Patient: Less than 30
--- NOTE | 2024-02-13 14:00 | P.PN ---
Subjective Progress Note Date: 02/13/24 Principal diagnosis: Lung cancer, status post wedge resection and mediastinal lymph node dissection 12/27/2023, pathology consistent with squamous cell carcinoma. History of tobacco dependence with recent cessation in December 2023, COPD, marijuana use, chronic back pain on chronic narcotics outpatient, anxiety/depression POD #4 robotic assisted thoracoscopic completion right upper lobectomy Paroxysmal atrial fibrillation, unexpected but known potential complication after lung cancer surgery Right middle lobe atelectasis with narrowing of the right middle lobe bronchus and narrowing of the medial segment bronchus as well as the lateral segment bronchus with right middle lobe collapse POD #2 bronchoscopy and bronchoalveolar lavage of the right middle lobe The patient was seen and examined in follow-up today February 13, 2024 at his bedside on the third floor cardiac stepdown unit. He is currently sitting up to the bedside chair, is awake, alert, oriented x 3 and is in no acute apparent distress. Oxygen saturations are 95% on room air and he is achieving 1500 mL on his incentive spirometry with encouragement. His chest tube was removed yesterday without incident. The patient denies any complaints of pain at this time or shortness of breath, although he says he just feels worn out as he went into atrial fibrillation around 3 AM. Remote telemetry is currently showing normal sinus rhythm heart rate 71 bpm. Over the weekend the patient underwent a bronchoscopy which was performed by Dr. An which showed no mucous plug or endobronchial tumor, but did show significant narrowing of the right middle lobe bronchus with right middle lobe collapse found. Chest x-ray and laboratory results reviewed. WBC count today is 9.7 hemoglobin 11.3. Objective - Vital Signs Vital signs: Vital Signs Temp 97.6 F 02/13/24 03:27 Pulse 114 H 02/13/24 03:27 Resp 20 02/13/24 03:27 BP 113/66 02/13/24 05:05 Pulse Ox 94 L 02/13/24 03:27 FiO2 Intake & Output 02/12/24 02/13/24 02/13/24 18:59 06:59 18:59 Intake Total 480 650 Output Total 550 Balance 480 100 Weight 98.5 kg Intake: Oral 480 650 Output: Urine 550 Other: Voiding Method Urinal Urinal # Voids 2 2 # Bowel Movements 0 - Exam CONSTITUTIONAL: Appears comfortable, cooperative, no acute distress RESPIRATORY: Lungs sounds essentially clear throughout, diminished to his right lower lobe. Respirations symmetrical, nonlabored. Currently on room air with oxygen saturation 95%. Able to achieve 1500 mL on incentive spirometry. Strong cough. CARDIOVASCULAR: S1, S2 present. Regular rate and rhythm, sinus rhythm on telemetry. Palpable peripheral pulses bilaterally. No edema present. No calf pain or tenderness noted. SCDs present. GASTROINTESTINAL: Abdomen soft, nontender, nondistended. Active bowel sounds present 4 quadrants. Tolerating diet. Positive flatus. GENITOURINARY: Continues to void. INTEGUMENTARY: Skin is warm and dry with evidence of good perfusion. Right thoracic incision well approximated and covered with dry intact dressing. NEUROLOGIC: Cranial nerves II through XII intact MUSKULOSKELETAL: Able to move all extremities, strength equal bilaterally. PSYCHIATRIC: Alert and oriented to person place and time, appropriate affect, intact judgment and insight. - Allied health notes Allied health notes reviewed: nursing - Labs CBC & Chem 7: 02/13/24 06:25 02/13/24 06:25 Labs: Abnormal Lab Results - Last 24 Hours (Table) 02/12/24 02/12/24 02/13/24 Range/Units 07:11 07:11 06:25 WBC 11.5 H (3.8-10.6) k/uL RBC 3.67 L 3.82 L (4.30-5.90) m/uL Hgb 11.1 L 11.3 L (13.0-17.5) gm/dL Hct 33.1 L 34.9 L (39.0-53.0) % Sodium 131 L (137-145) mmol/L Chloride 95 L (98-107) mmol/L BUN 23 H (9-20) mg/dL Glucose 111 H (74-99) mg/dL Calcium 8.0 L (8.4-10.2) mg/dL Ionized Calcium Bradley (4.5-5.3) mg/dL Magnesium 2.6 H (1.6-2.3) mg/dL Total Protein (6.3-8.2) g/dL Albumin (3.5-5.0) g/dL 02/13/24 Range/Units 06:25 WBC (3.8-10.6) k/uL RBC (4.30-5.90) m/uL Hgb (13.0-17.5) gm/dL Hct (39.0-53.0) % Sodium 129 L (137-145) mmol/L Chloride (98-107) mmol/L BUN (9-20) mg/dL Glucose 118 H (74-99) mg/dL Calcium 7.8 L (8.4-10.2) mg/dL Ionized Calcium Bradley 4.4 L (4.5-5.3) mg/dL Magnesium (1.6-2.3) mg/dL Total Protein 6.0 L (6.3-8.2) g/dL Albumin 3.3 L (3.5-5.0) g/dL - Imaging and Cardiology Chest x-ray: report reviewed, image reviewed Assessment and Plan Assessment: Lung cancer, status post wedge resection and mediastinal lymph node dissection 12/27/2023, pathology consistent with squamous cell carcinoma, status post completion right upper lobectomy Right middle lobe atelectasis with narrowing of the right middle lobe bronchus and narrowing of the medial segment bronchus as well as the lateral segment bronchus with right middle lobe collapse, status post bronchoscopy and bronchoalveolar lavage of the right middle lobe Paroxysmal atrial fibrillation, unexpected but known common complication after lung cancer surgery, currently sinus History of tobacco dependence with recent cessation in December 2023 COPD Marijuana use Chronic back pain on chronic narcotics outpatient Anxiety/depression Plan: We will decrease his aspirin to low-dose aspirin and start Eliquis 5 mg p.o. twice daily Continue amiodarone, no anticoagulation at this time. Continue metoprolol to tartrate 12.5 mg p.o. twice daily Encourage incentive spirometry use 10 times every hour while awake. Increase activity, ambulate as tolerated. Will monitor daily labs and chest x-rays. If the patient is discharged home today we will obtain a follow-up chest x-ray in 1 week. GI/DVT prophylaxis. Pain control with current medication regimen, patient has multiple medications ordered for better pain control. Continue home medications. More recommendations to follow based on patient's clinical course. Time with Patient: Greater than 30
--- NOTE | 2024-02-13 14:53 | P.DS ---
Providers Date of admission: 02/09/24 05:36 Expected date of discharge: 02/13/24 Attending physician: Pantera Winston Consults: 02/09/24 15:29 Consult Physician Routine Consulting Provider: Elvis Hoffmann Jr Consult Reason/Comments: Med management, known to you Do you want consulting provider notified?: Yes Consult Physician Routine Consulting Provider: Yoel Jimenez Consult Reason/Comments: post lobectomy Do you want consulting provider notified?: Yes Primary care physician: [facility] Course: FINAL DIAGNOSIS: Lung cancer, status post wedge resection and mediastinal lymph node dissection 12/27/2023, pathology consistent with squamous cell carcinoma, status post completion right upper lobectomy Right middle lobe atelectasis with narrowing of the right middle lobe bronchus and narrowing of the medial segment bronchus as well as the lateral segment bronchus with right middle lobe collapse, status post bronchoscopy and bronchoalveolar lavage of the right middle lobe Paroxysmal atrial fibrillation, unexpected but known common complication after lung cancer surgery, currently sinus History of tobacco dependence with recent cessation in December 2023 COPD Marijuana use Chronic back pain on chronic narcotics outpatient Anxiety/depression PRINCIPAL PROCEDURE: 1. Robotic assisted thoracoscopic completion right upper lobectomy 2. Bronchoscopy and bronchoalveolar lavage of the right middle lobe performed by Dr. An HISTORY OF PRESENT ILLNESS: This is a 63-year-old gentleman who follows on an outpatient basis with Dr. Leal currently for his primary care and with Dr. Pierce Lynn for his pulmonary care. The patient in 2021 underwent a low-dose CT scan of his chest due to his history of smoking which subsequently revealed a a subcentimeter nodule in the right lower lobe. A PET scan was obtained and did not demonstrate any significant uptake and the patient was followed as an outpatient. 1 year later a second CAT scan was completed which showed the nodule had not significantly changed, although the patient underwent a CT scan in September 2023 which did demonstrate an increased size of the mass just under 1 cm in diameter. For further evaluation a PET scan was obtained and showed uptake with an SUV of 4.8. Due to the results on the PET scan the patient was referred to Dr. Winston for further evaluation and treatment recommendations and consideration for resection. The patient follows with Dr. Partida and underwent a pulmonary function test which demonstrated moderate obstructive lung disease with an FEV1 of 2.2 L which is 61% of predicted value and a DLCO of 21.5, which is 66% of predicted value. FVC is 3.5 which is 74% of predicted value. The patient was seen and examined by Dr. Pantera Winston, treatment options were dis cussed including robotic assisted, right upper lobectomy. Risks and benefits were discussed with the patient, and knowing and understanding the risks the patient wished to proceed with the surgical option. HOSPITAL COURSE: On February 09, 2024 the patient was taken to the preoperative area, and after obtaining consent he was prepared in usual fashion, and was subsequently taken to the operating room where Dr. Pantera Winston performed an Robotic assisted thoracoscopic completion right upper lobectomy. Upon completion of the surgery the patient was transferred to the recovery unit where he was recovered and monitored hemodynamically and subsequently he was transferred to the third floor cardiac stepdown unit for further monitoring. The patient did have some postoperative paroxysmal atrial fibrillation which was treated with amiodarone, he was started on a low-dose beta-daniele and subsequently started on Eliquis. He is currently in normal sinus rhythm. His oxygen was titrated off, he was tolerating an oral diet, and his pain was controlled. The patient is being discharged home on postoperative day #4 . He received written and verbal instruction regarding his medications, activity restrictions, signs and symptoms requiring physician notification, and follow-up appointments. Plan - Discharge Summary Discharge Rx Participant: No New Discharge Prescriptions: New Metoprolol Tartrate [Lopressor] 12.5 mg PO BID #60 tab Aspirin 81 mg PO DAILY #30 tab Amiodarone [Cordarone] 400 mg PO BID #47 tab Apixaban [Eliquis] 5 mg PO BID #60 tab Pantoprazole [Protonix] 40 mg PO AC-BRKFST #30 tab Continue buPROPion XL [Wellbutrin XL] 150 mg PO QAM HYDROcodone/APAP 10-325MG [[place] 10-325] 1 tab PO QID Glycopyrrolate/Formoterol Fum [Bevespi Aerosphere Inhaler] 1 puff INHALATION BID PRN PRN Reason: Shortness Of Breath ARIPiprazole [Abilify] 2.5 mg PO HS Tamsulosin [Flomax] 0.4 mg PO DAILY Discharge Medication List buPROPion XL [Wellbutrin XL] 150 mg PO QAM 07/06/22 [History] HYDROcodone/APAP 10-325MG [[place] 10-325] 1 tab PO QID 06/20/23 [History] Glycopyrrolate/Formoterol Fum [Bevespi Aerosphere Inhaler] 1 puff INHALATION BID PRN 12/21/23 [History] ARIPiprazole [Abilify] 2.5 mg PO HS 02/07/24 [History] Tamsulosin [Flomax] 0.4 mg PO DAILY 02/09/24 [History] Amiodarone [Cordarone] 400 mg PO BID #47 tab 02/13/24 [Rx] Apixaban [Eliquis] 5 mg PO BID #60 tab 02/13/24 [Rx] Aspirin 81 mg PO DAILY #30 tab 02/13/24 [Rx] Metoprolol Tartrate [Lopressor] 12.5 mg PO BID #60 tab 02/13/24 [Rx] Pantoprazole [Protonix] 40 mg PO AC-BRKFST #30 tab 02/13/24 [Rx] Follow up Appointment(s)/Referral(s): Elvis Hoffmann Jr, DO [Primary Care Provider] - As Needed Pantera Winston MD [STAFF PHYSICIAN] - 03/01/24 2:00 pm Pierce Lynn DO [Doctor of Osteopathic Medicine] - 02/21/24 8:30 am Ambulatory/Diagnostic Orders: XR chest 2V [RAD.AMB] Time Frame: 02/20/24, Facility: [facility], Location: [facility] Discharge/Stand Alone Forms: Who Do I Call? Discharge Disposition: HOME SELF-CARE
--- NOTE | 2024-02-13 16:12 | P.PN ---
Subjective Progress Note Date: 02/13/24 February 11, 2024, patient was seen and re-evaluated today. He is status post postop day 2. For a right lobectomy. He has hematoma noted per chest x-ray. He developed atrial fibrillation overnight. This morning he reports he just does not feel very well. He denies any other symptoms other some mild chest pain and shortness of breath when he exerts himself. Denies any nausea or vomiting. He has not had a bowel movement. His vital signs all remained stable. He needs to have a chest tube in place. February 12, 2024: Patient is feeling a bit better today. He is postop day #3 for right lobectomy completion robot-assisted. He is postop day 1 bronchoscopy and BAL for collapsed right middle lung. He had developed atrial fibrillation and was placed on amiodarone. This is since resolved he is now in sinus rhythm. Vital signs are stable heart rate is normal in the 80s. Pulse oximetry normal at 96% on room air. Laboratory studies this morning show WBC count of 11.5 with hemoglobin 11.1. Hemoglobin is trending down slightly and white count is improving. Chemistries show a sodium 131 potassium 4 6 BUN 2 creatinine 1.04. Chest x-ray shows stable mediastinal right mass. 02/13/2024 earlier this morning patient returned into atrial fibrillation with RVR, placed on amiodarone drip. Converted to sinus rhythm. Sodium 129. Pain controlled. he reports constipation, recommending stool softeners, Dulcolax and MiraLAX.Chest x-ray repeated this morning reporting small right apical hydropneumothorax seen, opacity right medial lung right upper lobe noted unchanged, left lung is clear- further review as per pulmonary. Chest pain, palpitations or shortness of breath. Maintaining O2 sats in the mid 90s on room air. Objective - Vital Signs Vital signs: Vital Signs Temp 98.1 F 02/13/24 12:18 Pulse 75 02/13/24 14:00 Resp 16 02/13/24 12:18 BP 101/63 02/13/24 12:18 Pulse Ox 95 02/13/24 12:18 FiO2 Intake & Output 02/12/24 02/13/24 02/13/24 18:59 06:59 18:59 Intake Total 480 650 Output Total 550 550 Balance 480 100 -550 Weight 98.5 kg Intake: Oral 480 650 Output: Urine 550 550 Other: Voiding Method Urinal Urinal Urinal # Voids 2 2 # Bowel Movements 0 - Exam GENERAL: Alert and oriented x 3, sitting up in bed, no acute distress NECK: Supple, no JVD. LUNGS: Unlabored equal air entry, essentially clear HEART: Regular rate and rhythm without murmurs, rubs or gallops.S1S2 Normal ABDOMEN: Soft, nondistended, nontender, no guarding .normoactive bowel sounds. EXTREMITIES: No edema. No clubbing or cyanosis. NEUROLOGICAL: Cranial nerves II through XII grossly intact. SKIN: Warm, Dry, no rash noted. - Labs CBC & Chem 7: 02/13/24 06:25 02/13/24 06:25 Labs: Abnormal Lab Results - Last 24 Hours (Table) 02/13/24 02/13/24 Range/Units 06:25 06:25 RBC 3.82 L (4.30-5.90) m/uL Hgb 11.3 L (13.0-17.5) gm/dL Hct 34.9 L (39.0-53.0) % Sodium 129 L (137-145) mmol/L Glucose 118 H (74-99) mg/dL Calcium 7.8 L (8.4-10.2) mg/dL Ionized Calcium Bradley 4.4 L (4.5-5.3) mg/dL Total Protein 6.0 L (6.3-8.2) g/dL Albumin 3.3 L (3.5-5.0) g/dL Assessment and Plan Assessment: (1) S/P lobectomy of lung Current Visit: Yes Status: Acute Code(s): Z90.2 - ACQUIRED ABSENCE OF LUNG [PART OF] SNOMED Code(s): 28958999703994839 (2) Squamous cell lung cancer Current Visit: Yes Status: Acute Code(s): C34.90 - MALIGNANT NEOPLASM OF UNSP PART OF UNSP BRONCHUS OR LUNG SNOMED Code(s): 822298245 (3) Anxiety Current Visit: No Status: Acute Code(s): F41.9 - ANXIETY DISORDER, UN SPECIFIED SNOMED Code(s): 10293032 (4) COPD (chronic obstructive pulmonary disease) Current Visit: No Status: Acute Code(s): J44.9 - CHRONIC OBSTRUCTIVE PULMONARY DISEASE, UNSPECIFIED SNOMED Code(s): 36104707 (5) New onset atrial fibrillation Current Visit: Yes Status: Acute Code(s): I48.91 - UNSPECIFIED ATRIAL FIBRILLATION SNOMED Code(s): 30821326 (6) Constipation Current Visit: Yes Status: Acute Code(s): K59.00 - CONSTIPATION, UNSPECIFIED SNOMED Code(s): 57635516 Plan: Continue on current medication resume ,monitoring and symptomatic treatment. Aggressive pulmonary toileting with incentive spirometer reinforced. Smoking sensation reinforced. Chest x-ray review as per pulmonary. a ntiarrhythmics , anticoagulation as per CTS. discharge planning in progress as per CTS. The impression and plan of care has been dictated as directed. : I performed a history and examination of this patient, discussed the same with the dictator. I agree with the dictator's note ,documented as a scribe. Any additional findings or plans will be noted.
[2024-02-13] MEDS ORDERED: APIXABAN 5 MG TAB PO SCH (21:00)
[2024-02-14] MEDS ORDERED: ASPIRIN 81 MG PO SCH (09:00)
--- NOTE | 2024-02-16 16:52 | CDI ---
Documentation Clarification Form Date: 02/16/2024 08:23:00 AM From: Sarah Schneider RN, CCDS Phone: [phone] Admit Date: 02/09/2024 05:36:00 AM Patient Name: Brian Dickens Visit Number: [id number] Discharge Date: 02/13/2024 03:34:00 PM ATTENTION: The Clinical Documentation Specialists (CDI) and [facility] Coding Staff appreciate your assistance in clarifying documentation. Please respond to the clarification below the line at the bottom and electronically sign. The CDI & [facility] Coding staff will review the response and follow-up if needed. Please note: Queries are made part of the Legal Health Record. If you have any questions, please contact the author of this message via ITS. Mark DE LA GARZA Small right apical pneumothorax is documented in the pulmonary progress note on 02/13/24, and patient had right upper lobe lobectomy on 02/09/24. Additional clarification is requested regarding the relationship, if any, that exists between the diagnosis and the procedure. Patients Admitting Diagnosis: Lung cancer Post-Operative Diagnosis: Same Procedure performed: Robotic assisted thoracoscopic completion right upper lobectomy History/Risk Factors: COPD, lung cancer, Clinical Indicators: 63-year-old white male history of enlarging right upper lobe mass with positive PET scan, Present for lobectomy. 02/10 CXR: Right thoracotomy tube with mall to moderate pneumothorax with consolidation changes the right upper lung versus atelectasis. 02/11 CXR: The pulmonary vasculature is normal. The lungs are clear. Right-sided chest tube is present. No pneumothorax evident 02/12 pulmonary progress notes: Chest x-ray still continues to show a right middle lobe collapse. Chest x-ray shows a small right apical pneumothorax. VS 101/63 75 16 98.1 95% RA WBC 9.7 HGB 11.3 NA 129 02/11 CXR: The pulmonary vasculature is normal. The lungs are clear. Right-sided chest tube is present. No pneumothorax evident 02/12 CXR: Right-sided chest tube has been removed with small right apical hydropneumothorax seen. 02/12 Attn: progress notes: Right middle lobe atelectasis with narrowing of the right middle lobe bronchus and narrowing of the medial segment bronchus as well as the lateral segment bronchus with right middle lobe collapse, status post bronchoscopy and bronchoalveolar lava bronchus with right middle lobe collapse, status post bronchoscopy and bronchoalveolar lavage of the right middle lobe. Treatment: Increase activity, ambulate as tolerate Continue incentive spirometry and splinting until otherwise directed by the physician Monitor daily labs and x-rays What relationship, if any, exists between the diagnosis of small apical pneumothorax and the procedure: [ ] Pneumothorax is a complication of surgical procedure [ ] Pneumothorax is an expected outcome of the surgical procedure [ ] Pneumothorax is related to patients co-morbid condition(s) of [insert co- morbid dxs] & not a complication of the procedure [x ] Pneumothorax not significant and not a complication of the procedure. [ ] Other please specify ____ [ ] Unable to determine (Template Last Revised: May 2020) MTDD
== END 2024-02-13 15:34 | disposition home or self-care (01) | DRG 181 ==
LOC: 2ORMAIN 05:36 → 3SCARD 14:48
PROVIDERS: ADMIT Thoracic Surgery (Cardiothoracic Vascular Surgery); ATTEND Thoracic Surgery (Cardiothoracic Vascular Surgery)
PROC: 8E0W4CZ Robotic Assisted Procedure of Trunk Region, Percutaneous Endoscopic Approach (ICD-10-PCS; 2024-02-09)
PROC: 0BBC8ZZ Excision of Right Upper Lung Lobe, Via Natural or Artificial Opening Endoscopic (ICD-10-PCS; principal; 2024-02-09 07:30)
PROC: 0B9D8ZX Drainage of Right Middle Lung Lobe, Via Natural or Artificial Opening Endoscopic, Diagnostic (ICD-10-PCS; 2024-02-11)
DX: C34.11 Malignant neoplasm of upper lobe, right bronchus or lung (principal); J98.11 Atelectasis; J98.19 Other pulmonary collapse; F17.210 Nicotine dependence, cigarettes, uncomplicated; F32.A Depression, unspecified; F41.9 Anxiety disorder, unspecified; G89.29 Other chronic pain; I48.0 Paroxysmal atrial fibrillation; J44.9 Chronic obstructive pulmonary disease, unspecified; K59.00 Constipation, unspecified; K66.0 Peritoneal adhesions (postprocedural) (postinfection); Z79.891 Long term (current) use of opiate analgesic; Z79.899 Other long term (current) drug therapy; Z80.3 Family history of malignant neoplasm of breast; Z80.8 Family history of malignant neoplasm of other organs or systems; Z82.49 Family history of ischemic heart disease and other diseases of the circulatory system
CPT/HCPCS: 31624; 64999; 71045; 71046; 80048; 80053; 82330; 83735; 85025; 85027; 88309; 94640; 94760

== ENCOUNTER 2024-02-17 15:46 | Emergency (ER) | payer MEDICARE, OTHER ==
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
[2024-02-17 16:48] LABS: Basophils % (A) 0 %; Eosinophils % (A) 0 %; HCT 34.7 % (39.0-53.0); HGB 11.4 gm/dL (13.0-17.5); Lymphocytes % (A) 6 %; MCH 29.5 pg (25.0-35.0); MCHC 32.8 g/dL (31.0-37.0); Mean Platelet Volume 7.3; Monocytes # (A) 0.8 k/uL (0-1.0); Monocytes % (A) 5 %; Neutrophils % (A) 87 %; RBC 3.85 m/uL (4.30-5.90); RDW 12.8 % (11.5-15.5)
[2024-02-17 16:59] LABS: ALT 26 U/L (4-49); AST 25 U/L (17-59); African American GFR (CKD) >90 (>60 ml/min/1.73 sqM); Albumin 3.5 g/dL (3.5-5.0); Alkaline Phosphatase 86 U/L (38-126); Anion Gap 11 mmol/L; Blood Urea Nitrogen 20 mg/dL (9-20); Calcium 8.3 mg/dL (8.4-10.2); Carbon Dioxide 24 mmol/L (22-30); Chloride 93 mmol/L (98-107); Glucose 122 mg/dL (74-99); Non-African American GFR(CKD) 83 (>60 ml/min/1.73 sqM); Potassium 4.9 mmol/L (3.5-5.1); Sodium 128 mmol/L (137-145); Total Bilirubin 0.8 mg/dL (0.2-1.3); Total Protein 6.5 g/dL (6.3-8.2)
[2024-02-17 17:02] LABS: Platelet Count 537 k/uL (150-450)
[2024-02-17 17:12] LABS: Prothrombin Time 10.7 sec (10.0-12.5)
[2024-02-17] MEDS: HYDROmorphone 0.5 MG/0.5 ML SYRINGE IVP STA ×2 (18:04→19:34)
[2024-02-17] MEDS: KETOROLAC 15 MG/ML 1 ML VIAL IVP STA ×2 (18:06→19:34)
[2024-02-17] MEDS: cefTRIAXone 1,000 MG VIAL (IM USE) IM STA (18:16)
[2024-02-17] MEDS: SODIUM CHLORIDE 0.9% 1,000 ML IV STA (18:17)
--- NOTE | 2024-02-17 18:37 | XR ---
EXAMINATION TYPE: XR chest 2V DATE OF EXAM: 02/17/2024 5:42 PM COMPARISON: Previous chest radiograph 02/13/2024. CLINICAL INDICATION: Male, 63 years old with history of fever; [facility] TECHNIQUE: XR chest 2V Frontal and lateral views of the chest. FINDINGS: Cardiac silhouette stable. Large masslike opacification in the right hilar/hilar region again visuali zed. There is small right apical pneumothorax, not significantly changed from previous study 02/13/20 24. No sizable pleural effusion. No appreciable left-sided pneumothorax. No acute osseous adenopathy. IMPRESSION: No significant interval changes from recent chest radiograph 02/13/2024. [facility], , 02/17/2024 6:35 PM
[2024-02-17] MEDS: AZITHROMYCIN 500 MG TAB PO STA (19:34)
[2024-02-17] MEDS: ACETAMINOPHEN TAB 325 MG TAB PO STA (19:34)
[2024-02-17 20:04] VITALS: BP 127/73; PULSE 71; RESP 20; TEMP 97.9
== END 2024-02-17 19:55 | disposition home or self-care (01) ==
LOC: EC 15:46
DX: J18.9 Pneumonia, unspecified organism (principal); J98.11 Atelectasis; Z85.118 Personal history of other malignant neoplasm of bronchus and lung; Z87.891 Personal history of nicotine dependence
CPT/HCPCS: 36415; 80053; 85025; 85610; 87636; 71046; 99284; 96365; 96375; 96376; 96372; 96366; J0696; J1885; J1171

== ENCOUNTER 2024-02-18 15:09 | Inpatient (IN) | payer MEDICARE, OTHER ==
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
[2024-02-18] MEDS: IBUPROFEN 600 MG TAB PO STA (16:02)
[2024-02-18] MEDS: ACETAMINOPHEN TAB 500 MG TAB PO STA (16:02)
[2024-02-18] MEDS: LORazepam 2 MG/ML INJ IV STA (16:04)
[2024-02-18] MEDS: HYDROmorphone 0.5 MG/0.5 ML SYRINGE IVP STA ×2 (16:05→17:59)
[2024-02-18] MEDS: cefTRIAXone IN SWFI 1,000 MG/10 ML SYRINGE IVP STA (16:06)
[2024-02-18] MEDS: SODIUM CHLORIDE 0.9% 500 ML 500 ML IV SCH (16:12)
--- NOTE | 2024-02-18 16:26 | XR ---
EXAMINATION TYPE: XR chest 2V DATE OF EXAM: 02/18/2024 4:20 PM COMPARISON: Numerous prior chest radiograph, most recent dated 02/17/2024. CLINICAL INDICATION: Male, 63 years old with history of Fever; [facility] TECHNIQUE: XR chest 2V Frontal and lateral views of the chest. FINDINGS: Excellent stable. Masslike consolidative changes again visualized in the right mid and upper lung. Left lung appears clear. No significant change in right small sided pneumothorax. No sizable pleural effusion. IMPRESSION: No significant interval changes from prior study 02/15/2024. [facility], , 02/18/2024 4:24 PM
[2024-02-18 16:55] LABS: Basophils # (A) 0.1 k/uL (0-0.2); Basophils % (A) 0 %; Eosinophils # (A) 0.1 k/uL (0-0.7); Eosinophils % (A) 0 %; HCT 32.7 % (39.0-53.0); HGB 10.7 gm/dL (13.0-17.5); Lymphocytes % (A) 6 %; MCH 29.5 pg (25.0-35.0); MCHC 32.7 g/dL (31.0-37.0); MCV 90.2 fL (80.0-100.0); Mean Platelet Volume 7.3; Monocytes # (A) 0.7 k/uL (0-1.0); Monocytes % (A) 4 %; Neutrophils # (A) 14.6 k/uL (1.3-7.7); Neutrophils % (A) 88 %; Platelet Count 552 k/uL (150-450); RBC 3.62 m/uL (4.30-5.90); RDW 12.9 % (11.5-15.5); WBC 16.6 k/uL (3.8-10.6)
[2024-02-18 17:05] LABS: Partial Thromboplastin Time 25.4 sec (22.0-30.0); Prothrombin Time 10.9 sec (10.0-12.5)
[2024-02-18 17:06] LABS: ALT 25 U/L (4-49); African American GFR (CKD) >90 (>60 ml/min/1.73 sqM); Albumin 3.2 g/dL (3.5-5.0); Anion Gap 8 mmol/L; Blood Urea Nitrogen 20 mg/dL (9-20); Calcium 7.9 mg/dL (8.4-10.2); Carbon Dioxide 24 mmol/L (22-30); Chloride 95 mmol/L (98-107); Glucose 104 mg/dL (74-99); Non-African American GFR(CKD) 83 (>60 ml/min/1.73 sqM); Sodium 127 mmol/L (137-145); Total Bilirubin 0.8 mg/dL (0.2-1.3); Total Protein 6.2 g/dL (6.3-8.2)
[2024-02-18 17:19] LABS: AST 29 U/L (17-59); Alkaline Phosphatase 94 U/L (38-126); Potassium 5.1 mmol/L (3.5-5.1)
[2024-02-18] MEDS ORDERED: PNEUMONIA PROTOCOL UTILIZED 1 EACH MISC PO PRN (18:38)
[2024-02-18] MEDS: AZITHROMYCIN 500 MG in SODIUM CHLORIDE 0.9% 250 ML IVPB STA (19:30)
[2024-02-18] MEDS: HYDROmorphone 0.5 MG/0.5 ML SYRINGE IVP PRN (20:08)
[2024-02-18] MEDS ORDERED: FORMOTEROL FUMARATE 20 MCG/2 ML NEBU INHALATION PRN (22:59)
[2024-02-18] MEDS: METOPROLOL TARTRATE 25 MG TAB PO SCH (23:38)
[2024-02-19] MEDS: HYDROmorphone 1 MG/ML 1 ML SYRINGE IVP PRN (00:16)
[2024-02-19] MEDS: ARIPiprazole 5 MG TAB PO SCH (00:36)
[2024-02-19] MEDS: PANTOPRAZOLE 40 MG TABLET PO SCH (06:49)
[2024-02-19] MEDS: ASPIRIN 81 MG PO SCH (08:02)
[2024-02-19] MEDS: TAMSULOSIN 0.4 MG CAP.ER.24H PO SCH (08:02)
[2024-02-19] MEDS: APIXABAN 5 MG TAB PO SCH (08:02)
[2024-02-19] MEDS: AMIODARONE 200 MG TAB PO SCH (08:02)
[2024-02-19] MEDS: AZITHROMYCIN 500 MG TAB PO SCH (08:02)
[2024-02-19] MEDS: buPROPion XL 150 MG TAB.ER.24H PO SCH (08:02)
--- NOTE | 2024-02-19 08:29 | XR ---
2 view chest HISTORY: Pneumonia COMPARISON: 02/18/2024 TECHNIQUE: PA and lateral views chest obtained. FINDINGS: The large consolidative opacity in the right perihilar region is again seen and is stable. There is a small right pleural effusion which has increased in the interval. There is a stable right apical hydropneumothorax. The heart, pulmonary vasculature, mediastinum and jc are within normal limits. The osseous structures and soft tissues of the thorax are intact. IMPRESSION: 1. No change in the large predominantly right perihilar opacity consistent with pneumonia which is th e provided history. 2. Stable small right apical hydropneumothorax. 3. small increasing right pleural effusion. [facility], , 02/19/2024 8:26 AM
[2024-02-19] MEDS: IPRATROPIUM 0.5 MG/2.5 ML NEBU INHALATION SCH (08:40)
[2024-02-19] MEDS: HYDROcodone/APAP 10-325MG 1 EACH TAB PO SCH (09:09)
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
[2024-02-19 12:53] LABS: Basophils % (A) 0 %; Eosinophils % (A) 0 %; HCT 30.2 % (39.0-53.0); HGB 9.5 gm/dL (13.0-17.5); Lymphocytes # (A) 0.9 k/uL (1.0-4.8); Lymphocytes % (A) 6 %; MCH 28.8 pg (25.0-35.0); MCHC 31.5 g/dL (31.0-37.0); MCV 91.4 fL (80.0-100.0); Mean Platelet Volume 8.3; Monocytes # (A) 0.5 k/uL (0-1.0); Monocytes % (A) 4 %; Neutrophils # (A) 12.3 k/uL (1.3-7.7); Neutrophils % (A) 89 %; Platelet Count 574 k/uL (150-450); RBC 3.31 m/uL (4.30-5.90); RDW 13.3 % (11.5-15.5); WBC 13.9 k/uL (3.8-10.6)
[2024-02-19] MEDS: guaiFENesin 600 MG TABLET.ER PO SCH (13:19)
[2024-02-19 13:38] LABS: African American GFR (CKD) >90 (>60 ml/min/1.73 sqM); Anion Gap 8 mmol/L; Blood Urea Nitrogen 16 mg/dL (9-20); Calcium 7.8 mg/dL (8.4-10.2); Carbon Dioxide 20 mmol/L (22-30); Chloride 101 mmol/L (98-107); Glucose 141 mg/dL (74-99); Magnesium 2.2 mg/dL (1.6-2.3); Non-African American GFR(CKD) 83 (>60 ml/min/1.73 sqM); Potassium 4.2 mmol/L (3.5-5.1); Sodium 129 mmol/L (137-145)
--- NOTE | 2024-02-19 13:58 | XR ---
EXAMINATION TYPE: XR chest 1V portable DATE OF EXAM: 02/19/2024 CLINICAL HISTORY: Difficulty breathing coughing congestion. TECHNIQUE: Single AP portable upright view of the chest is obtained. COMPARISON: Chest x-ray from earlier today FINDINGS: Persistent masslike right hilar opacity extending superiorly and small right pleural fluid collection. Left lung remains clear. Cardiac silhouette size remains within normal limits. Osseous s tructures are intact. IMPRESSION: No significant change from most recent study . [facility], , 02/19/2024 1:56 PM
[2024-02-19] MEDS: SODIUM CHLORIDE 0.9% 1,000 ML IV SCH (14:37)
[2024-02-19] MEDS: ALBUTEROL NEBULIZED 2.5 MG/3 ML INHALATION PRN (15:47)
[2024-02-19] MEDS: methylPREDNISolone SOD SUCCI 125 MG/2 ML VIAL IV STA (16:45)
[2024-02-19] MEDS: SYMBICORT 160-4.5 MCG INHALER INHALATION SCH (21:39)
[2024-02-20 09:06] LABS: Basophils # (A) 0.01 X 10*3/uL (0.00-0.10); Basophils % (A) 0.1 %; Eosinophils # (A) 0 X 10*3/uL (0.04-0.35); Eosinophils % (A) 0 %; HCT 32.4 % (39.6-50.0); HGB 10.4 g/dL (13.0-17.0); Lymphocytes # (A) 0.72 X 10*3/uL (0.90-5.00); Lymphocytes % (A) 4.7 %; MCH 29.6 pg (27.0-32.0); MCHC 32.1 g/dL (32.0-37.0); MCV 92.3 FL (80.0-97.0); Mean Platelet Volume 9.5 FL (9.5-12.2); Monocytes # (A) 0.33 X 10*3/uL (0.20-1.00); Monocytes % (A) 2.1 %; NRBC Per 100 WBC 0 X 10*3/uL (0.00-0.01); Neutrophils # (A) 14.23 X 10*3/uL (1.80-7.70); Neutrophils % (A) 92.3 %; Platelet Count 604 X 10*3/uL (140-440); RBC 3.51 X 10*6/uL (4.40-5.60); RDW 13.4 % (11.5-14.5); WBC 15.42 X 10*3/uL (4.50-10.00)
[2024-02-20 09:20] LABS: BUN/Creat Ratio 17.56 Ratio (12.00-20.00); Blood Urea Nitrogen 15.8 mg/dL (9.0-27.0); Glucose 199 mg/dL (70-110); Magnesium 2.7 mg/dL (1.5-2.4)
[2024-02-20 09:21] LABS: Calcium 8.6 mg/dL (8.7-10.3); Carbon Dioxide 22.3 mmol/L (21.6-31.8); Chloride 97 mmol/L (96-109); Potassium 4.9 mmol/L (3.5-5.5); Sodium 133 mmol/L (135-145)
[2024-02-20 11:34] LABS: % Iron Saturation 4.94 (15.00-50.00)
--- NOTE | 2024-02-20 15:28 | P.PN ---
Subjective Cough, diaphoresis, shortness of breath Brian is a 63-year-old white male with known squamous cell carcinoma. He had underwent a mediastinal lymph node dissection and wedge resection of the lung on December 27, 2023. He returned back and February 08 for a right upper lobe lobectomy. While here he had collapse of the right middle lung and underwent a bronchoscopy and bronc and BAL. He developed a complication of paroxysmal atrial fibrillation during his stay. He did improve and was sent home in stable condition. He returned emergency room on 112 with shortness of breath and cough was sent home. He returned again on 02/18/2024 with worsening symptoms. Found to have a leukocytosis coughing and not feeling well. Also complaining of left-sided chest pain and right-sided chest pain at his surgical site. This morning he isb in sinus rhythm per telemetry heart rates controlled in the 80s O2 saturation 93% on room air. Laboratory studies now show a leukocytosis 16 6 hemoglobin 10.7 and a left shift with the neutrophils at 14,600. Blood chemistries do show a hyponatremia with a sodium 127 chloride 95, calcium is 7.9. Total protein is 6.2 with a albumin of 3.2. 02/20/2024: Brian was reevaluated for his right middle lobe pneumonia. Vital signs show he is afebrile heart rate and respiratory rate blood pressure control. He is on 6 L of O2 via nasal cannula. WBC count is improved now 15.4, hemoglobin 10.4 neutrophils are 14.23, chemistries show sodium 133. Sputum and blood cultures pending. Objective - Vital Signs Vital signs: Vital Signs Temp 97.8 F 02/20/24 14:00 Pulse 66 02/20/24 14:00 Resp 17 02/20/24 14:00 BP 120/70 02/20/24 14:00 Pulse Ox 99 02/20/24 14:00 FiO2 Intake & Output 02/19/24 02/20/24 02/20/24 18:59 06:59 18:59 Other: Voiding Method Toilet # Voids 3 3 - Exam GENERAL: male in hospital bed in no acute distress. NECK: Normal range of motion, supple without lymphadenopathy or JVD, no thyromegaly LUNGS: Breath sounds coarse with rhonchi bilaterally worse on the right, no active wheals wheezes at this time. HEART: Regular rate and rhythm without murmurs, rubs or gallops.S1S2 Normal ABDOMEN: Soft, nontender, normoactive bowel sounds. No guarding, no rebound. No masses appreciated. EXTREMITIES: Normal range of motion, no pitting or edema. No clubbing or cyanosis. NEUROLOGICAL: Cranial nerves II through XII grossly intact. Normal speech, normal gait. PSYCH: Normal mood, normal affect. SKIN: Warm, Dry, normal turgor, no rashes or lesions noted. - Labs CBC & Chem 7: 02/20/24 04:42 02/20/24 04:42 Labs: Abnormal Lab Results - Last 24 Hours (Table) 02/19/24 02/19/24 02/20/24 Range/Units 08:22 08:22 04:42 WBC 15.42 H (4.50-10.00) X 10*3/uL RBC 3.51 L (4.40-5.60) X 10*6/uL Hgb 10.4 L (13.0-17.0) g/dL Hct 32.4 L (39.6-50.0) % Plt Count 604 H (140-440) X 10*3/uL Immature Gran # 0.13 H (0.00-0.04) X 10*3/uL Neutrophils # 14.23 H (1.80-7.70) X 10*3/uL Lymphocytes # 0.72 L (0.90-5.00) X 10*3/uL Eosinophils # 0 L (0.04-0.35) X 10*3/uL Sodium (135-145) mmol/L Anion Gap (4.00-12.00) mmol/L Glucose (70-110) mg/dL Calcium (8.7-10.3) mg/dL Magnesium (1.5-2.4) mg/dL Iron 8 L (65-175) UG/DL TIBC 162 L (228-460) UG/DL % Saturation 4.94 L (15.00-50.00) Transferrin 116.0 L (204.0-354.0) mg/dL Ferritin 799.0 H (22.0-322.0) ng/mL Folate 3.70 L (4.40-31.00) ng/mL 02/20/24 Range/Units 04:42 WBC (4.50-10.00) X 10*3/uL RBC (4.40-5.60) X 10*6/uL Hgb (13.0-17.0) g/dL Hct (39.6-50.0) % Plt Count (140-440) X 10*3/uL Immature Gran # (0.00-0.04) X 10*3/uL Neutrophils # (1.80-7.70) X 10*3/uL Lymphocytes # (0.90-5.00) X 10*3/uL Eosinophils # (0.04-0.35) X 10*3/uL Sodium 133 L (135-145) mmol/L Anion Gap 13.70 H (4.00-12.00) mmol/L Glucose 199 H (70-110) mg/dL Calcium 8.6 L (8.7-10.3) mg/dL Magnesium 2.7 H (1.5-2.4) mg/dL Iron (65-175) UG/DL TIBC (228-460) UG/DL % Saturation (15.00-50.00) Transferrin (204.0-354.0) mg/dL Ferritin (22.0-322.0) ng/mL Folate (4.40-31.00) ng/mL Microbiology - Last 24 Hours (Table) 02/18/24 22:17 Gram Stain - Preliminary Sputum Sputum Culture - Preliminary 02/18/24 15:35 Blood Culture - Preliminary Blood 02/18/24 15:52 Blood Culture - Preliminary Blood Assessment and Plan (1) Hyponatremia Current Visit: Yes Status: Acute Code(s): E87.1 - HYPO-OSMOLALITY AND HYPONATREMIA SNOMED Code(s): 05525125 (2) Normocytic anemia Current Visit: Yes Status: Acute Code(s): D64.9 - ANEMIA, UNSPECIFIED SNOMED Code(s): 393780698 (3) Postoperative pneumonia Current Visit: Yes Status: Acute Code(s): J95.89 - OTH POSTPROC COMPLICATIONS AND DISORDERS OF RESP SYS, NEC; J18.9 - PNEUMONIA, UNSPECIFIED ORGANISM SNOMED Code(s): 799738839 (4) Anxiety Current Visit: No Status: Acute Code(s): F41.9 - ANXIETY DISORDER, UNSPECIFIED SNOMED Code(s): 51986262 (5) Atelectasis of right lung Current Visit: No Status: Acute Code(s): J98.11 - ATELECTASIS SNOMED Code(s): 66076304 (6) COPD (chronic obstructive pulmonary disease) Current Visit: No Status: Acute Code(s): J44.9 - CHRONIC OBSTRUCTIVE PULMONARY DISEASE, UNSPECIFIED SNOMED Code(s): 00959317 (7) Chest pain Current Visit: No Status: Acute Code(s): R07.9 - CHEST PAIN, UNSPECIFIED SNOMED Code(s): 40138825 (8) Moderate recurrent major depression Current Visit: No Status: Acute Code(s): F33.1 - MAJOR DEPRESSIVE DISORDER, RECURRENT, MODERATE SNOMED Code(s): 22256269 (9) New onset atrial fibrillation Current Visit: No Status: Acute Code(s): I48.91 - UNSPECIFIED ATRIAL FIBRILLATION SNOMED Code(s): 29580362 (10) S/P lobectomy of lung Current Visit: No Status: Acute Code(s): Z90.2 - ACQUIRED ABSENCE OF LUNG [PART OF] SNOMED Code(s): 99729022427586874 (11) Squamous cell lung cancer Current Visit: No Status: Acute Code(s): C34.90 - MALIGNANT NEOPLASM OF UNSP PART OF UNSP BRONCHUS OR LUNG SNOMED Code(s): 310915574 Plan: Further recommendations from thoracic surgery, pulmonology pending, will continue his current medications treatments, continue ceftriaxone and azithromycin, he did receive 1 dose of Solu-Medrol reevaluate him in the next 24 hours
[2024-02-20] MEDS: ACETYLCYSTEINE 800 MG/4 ML VIAL INHALATION SCH (16:10)
--- NOTE | 2024-02-20 16:56 | CDI ---
Documentation Clarification Form Date: 02/20/2024 04:39:19 PM From: Katarzyna Reaves RN CCDS Phone: [phone] Admit Date: 02/18/2024 06:57:00 PM Patient Name: Brian iDckens Visit Number: [id number] Discharge Date: ATTENTION: The Clinical Documentation Specialists (CDI) and [facility] Coding Staff appreciate your assistance in clarifying documentation. Please respond to the clarification below the line at the bottom and electronically sign. The CDI & [facility] Coding staff will review the response and follow-up if needed. Please note: Queries are made part of the Legal Health Record. If you have any questions, please contact the author of this message via ITS. Doctor/Provider: Rajan Mackey Postoperative Pneumonia is documented HP, 02/19. Additional clarification regarding the type of pneumonia is requested. History/Risk Factors: 63 year old male presents to the ED 02/16 with shortness of breath and cough and sent home. The patient returned again on 02/17 with worsening symptoms. Medical History: 12/26 Mediastinal lymph node dissection and wedge resection of the lung. Clinical Indicators: 02/17, VSS: B/P 131/68, HR 85, Temp 99.2 F Oral; RR 20; SpO2 90% 02/18, Pulmonary consult: Recent discharge February 13, 2024 following robotically assisted right upper lobectomy for stage I bronchogenic carcinoma, squamous cell, T1b, N0 M0 02/17: WBC: 16.6; Neutrophils 14.6 02/17 Chest X-ray: Masslike consolidative changes again visualized in the right mid and upper lung. Left lung appears clear. No significant change in right small sided pneumothorax. Lung/Breathing assessment 02/18 Chest X-ray: No change in the large predominantly right perihilar opacity consistent with pneumonia which is the provided history. Treatment: Antibiotics: 02/17 Rocephin IVP x 2; 02/17 Azithromcyin IVPB x 1; 02/18 Zithromax PO Daily x 2 doses; 02/18 Ceftriaxone IVPB Q24 x 4 bags O2: 6L nc Breathing Tx: Symbicort BID; Ventolin QID PRN, Mucomyst TID RAMILA; Perforomist BID PRN; Please clarify the type of pneumonia, if known: [ X] Bacterial Pneumonia, specify causal organism (if known) ___UNK [ ] Gram Negative Bacterial Pneumonia [ ] Other bacteria (please specify) [ ] Other, please specify [ ] Unable to determine (Template Last Revised: May 2020) MTDD
--- NOTE | 2024-02-20 19:54 | P.PN ---
Subjective Progress Note Date: 02/20/24 This is a very pleasant 63-year-old male patient with a known history of chronic and ongoing tobacco dependence of 48 years, chronic obstructive pulmonary disease, chronic back pain, atrial fibrillation. He also has a history of a solitary right upper lobe pulmonary nodule that was positive for squamous cell carcinoma based on a previous wedge resection in December 2023. He was brought back into the hospital for a robotically assisted right upper lobe lobectomy on February 09, 2024. During that hospitalization he was found to have a right middle lobe collapse and had undergone bronchoscopy with BAL. No endobronchial lesions or mucous was identified. He was discharged home on February 13, 2024. He was seen in the emergency department on February 17, 2024 for increasing shortness of breath cough and congestion. He was given azithromycin and discharged to home. He returned to the emergency room again the following day February 18, 2024 with similar symptoms that seem to be worsening. He had a hard time sleeping and was having right sided chest pain. Increased mucus. Chest x-ray shows similar findings of a large predominant right perihilar opacity. Stable small right apical hydropneumothorax. Small increasing right pleural effusion. White count 16.6. Hemoglobin 10.7. Platelets 552. Sodium 127. Potassium 5.1. Bicarb 24. BUN 20. Creatinine 0.98. Glucose 104. Viral screen negative. He is seen today in consultation on the regular medical floor. He is currently sitting up in bed. Awake and alert in no acute distress. He is quite weak. He is maintaining O2 saturations in the low 90s on room air. 02/20/2024, the patient is being seen for a follow-up. Patient is post right upper lobectomy for non-small cell lung cancer. 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 The patient has a persistent atelectasis/pneumon ia of the right middle lobe. Currently, the patient is hospitalized for worsening shortness of breath. Procalcitonin level is 0.47. Electrolytes are all within normal range with a BUN of 15 and a creatinine of 0.9. The white cell count is at 15.4 with a hemoglobin of 10.4 and a platelet count of 406. The right upper lobe resection was done on 02/10/2024 and it is consistent with benign lung without any residual malignancy. The lymph nodes are also negative for malignancy. The patient is currently on IV Rocephin. The patient is also on Symbicort as maintenance 2 puffs twice a day and IV fluids with normal saline at rate of 75 cc an hour. He is receiving nebulized albuterol 4 times a day. He is oxygen requirements are at 6 L with a pulse ox of 99% Objective - Vital Signs Vital signs: Vital Signs Temp 98.1 F 02/20/24 07:33 Pulse 80 02/20/24 11:39 Resp 17 02/20/24 08:24 BP 143/75 02/20/24 07:33 Pulse Ox 100 02/20/24 09:20 FiO2 Intake & Output 02/19/24 02/20/24 02/20/24 18:59 06:59 18:59 Other: Voiding Method Toilet # Voids 3 3 - Exam GENERAL EXAM: Alert, weak 63-year-old male, 6 L of O2 nasal cannula with a pulse ox of 99% HEAD: Normocephalic. EYES: Normal reaction of pupils, equal size. NOSE: Clear with pink turbinates. THROAT: No erythema or exudates. NECK: No masses, no JVD. CHEST: No chest wall deformity. LUNGS: Equal air entry with coarse rhonchi throughout. CVS: S1 and S2 normal with no audible murmur, regular rhythm. ABDOMEN: No hepatosplenomegaly, normal bowel sounds, no guarding or rigidity. SPINE: No scoliosis or deformity SKIN: No rashes CENTRAL NERVOUS SYSTEM: No focal deficits, tone is normal in all 4 extremities. EXTREMITIES: There is no peripheral edema. No clubbing, no cyanosis. Periph eral pulses are intact. - Labs CBC & Chem 7: 02/20/24 04:42 02/20/24 04:42 Labs: Abnormal Lab Results - Last 24 Hours (Table) 02/19/24 02/19/24 02/19/24 Range/Units 08:22 08:22 08:22 WBC 13.9 H (3.8-10.6) k/uL RBC 3.31 L (4.30-5.90) m/uL Hgb 9.5 L (13.0-17.5) gm/dL Hct 30.2 L (39.0-53.0) % Plt Count 574 H (150-450) k/uL Immature Gran # (0.00-0.04) X 10*3/uL Neutrophils # 12.3 H (1.3-7.7) k/uL Lymphocytes # 0.9 L (1.0-4.8) k/uL Eosinophils # (0.04-0.35) X 10*3/uL Sodium (137-145) mmol/L Carbon Dioxide (22-30) mmol/L Anion Gap (4.00-12.00) mmol/L Glucose (74-99) mg/dL Calcium (8.4-10.2) mg/dL Magnesium (1.5-2.4) mg/dL Iron 8 L (65-175) UG/DL TIBC 162 L (228-460) UG/DL % Saturation 4.94 L (15.00-50.00) Transferrin 116.0 L (204.0-354.0) mg/dL Ferritin 799.0 H (22.0-322.0) ng/mL Folate 3.70 L (4.40-31.00) ng/mL 02/19/24 02/20/24 02/20/24 Range/Units 08:22 04:42 04:42 WBC 15.42 H (3.8-10.6) k/uL RBC 3.51 L (4.30-5.90) m/uL Hgb 10.4 L (13.0-17.5) gm/dL Hct 32.4 L (39.0-53.0) % Plt Count 604 H (150-450) k/uL Immature Gran # 0.13 H (0.00-0.04) X 10*3/uL Neutrophils # 14.23 H (1.3-7.7) k/uL Lymphocytes # 0.72 L (1.0-4.8) k/uL Eosinophils # 0 L (0.04-0.35) X 10*3/uL Sodium 129 L 133 L (137-145) mmol/L Carbon Dioxide 20 L (22-30) mmol/L Anion Gap 13.70 H (4.00-12.00) mmol/L Glucose 141 H 199 H (74-99) mg/dL Calcium 7.8 L 8.6 L (8.4-10.2) mg/dL Magnesium 2.7 H (1.5-2.4) mg/dL Iron (65-175) UG/DL TIBC (228-460) UG/DL % Saturation (15.00-50.00) Transferrin (204.0-354.0) mg/dL Ferritin (22.0-322.0) ng/mL Folate (4.40-31.00) ng/mL Microbiology - Last 24 Hours (Table) 02/18/24 22:17 Gram Stain - Preliminary Sputum 02/18/24 15:35 Blood Culture - Preliminary Blood 02/18/24 15:52 Blood Culture - Preliminary Blood Assessment and Plan Plan: Acute hypoxemic respiratory failure, currently on 6 L of oxygen by nasal cannula Right upper completion lobectomy for non-small cell lung cancer with squamous cell type. Patient was discharged home on 02/10/2024. The patient is also status post wedge resection, right upper lobe solitary pulmonary nodule, which was positive for squamous cell carcinoma, performed on 12/27/2023, stage I bronchogenic carcinoma, squamous cell, T1b, N0 M0 Right mid lung consolidation, ruled out right middle lobe syndrome with secondary pneumonia, status post bronchoscopy performed on 02/11/2024, refer to the full report Leukocytosis secondary to above Hyponatremia, recovered with IV fluids and the sodium level is normalized Chronic and ongoing tobacco dependence of 48 years COPD Chronic back pain Chronic atrial fibrillation, rate is controlled and patient is currently on amiodarone 200 mg p.o. twice a day metoprolol 12.5 mg twice daily and the patient is on anticoagulation with Eliquis. Plan: The humza titrate oxygen flow to maintain saturation above 90% Continue ceftriaxone None elevated procalcitonin Anticoagulated with Eliquis Continue bronchodilators with albuterol nebulized treatments 4 times a day and Symbicort as maintenance Encouraged use of incentive spirometer May need another bronchoscopy for evaluation of the right middle lobe We will continue to follow and make further recommendations based on his clinical status
--- NOTE | 2024-02-21 06:48 | XR ---
EXAMINATION TYPE: XR chest 2V DATE OF EXAM: 02/21/2024 6:33 AM COMPARISON: 02/19/2024 CLINICAL INDICATION: Male, 63 years old with history of Postoperative right upper lobectomy, , TECHNIQUE: PA and lateral views FINDINGS: Heart normal size. There is persistence of a right hilar masslike opacity measuring up to 15 cm. The lateral view shows an internal air-fluid level within this opacity. Improving interstitial changes within the remainder of the right lung. No sizable pleural effusion. Left lung and pleural s pace remain clear. IMPRESSION: 1. Redemonstrated large masslike opacity at the right hilum measuring up to 15.9 cm. Etiology unclear . The lateral view now shows an air-fluid level within the opacity. 2. Interstitial density within the remainder of the right lung is improving. [facility], , 02/21/2024 6:46 AM
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
--- NOTE | 2024-02-21 07:53 | P.PN ---
Subjective Progress Note Date: 02/21/24 Principal diagnosis: Recent right upper wedge resection/right upper lobectomy on February 09, 2024. 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 He also has a past medical history significant for paroxysmal atrial fibrillation on Eliquis for anticoagulation as an outpatient, COPD, obesity, tobacco dependence, quit smoking in December 2023, chronic back pain with chronic narcotic dependency as an outpatient, benign prostatic hypertrophy anxiety and depression. The patient was seen and examined in follow-up today February 21, 2024 at his bedside on the fourth floor medical surgical unit. He is currently sitting up to the bedside chair, he is awake, alert, oriented x 3 and is in no acute apparent distress. His son is present at his bedside. The patient denies any complaints of shortness of breath at this time, although is complaining of back pain which is chronic in nature. The patient states that his cough has improved in the last 24 hours, states that it is not as productive and seems to have dried up somewhat. Oxygen saturations are 100% on 5 L nasal cannula, his oxygen was titrated down to 2 L nasal cannula with oxygen saturations 97%. He is achieving 1500 mL on his incentive spirometry with encouragement. Sputum culture results show many polymorphonuclear leukocytes, rare epithelial cells, many gram-negative bacilli and rare gram-positive cocci per the preliminary report. Blood cultures showed no growth after 48 hours. He is currently on Rocephin for antibiotic coverage. Chest x-ray results reviewed. Objective - Vital Signs Vital signs: Vital Signs Temp 97.9 F 02/21/24 00:34 Pulse 74 02/21/24 02:23 Resp 22 02/21/24 00:34 BP 115/70 02/21/24 00:34 Pulse Ox 98 02/21/24 00:34 FiO2 Intake & Output 02/20/24 02/21/24 02/21/24 18:59 06:59 18:59 Other: Voiding Method Toilet Toilet # Voids 2 - Exam CONSTITUTIONAL: Appears comfortable, cooperative, no acute distress. RESPIRATORY: Lungs sounds with few scattered rhonchi throughout, diminished to his bilateral bases right greater than left. Respirations symmetrical, nonlabored. Currently on 2 L nasal cannula with oxygen saturation 97%. Able to achieve 1500 mL on incentive spirometry. Strong cough. CARDIOVASCULAR: S1, S2 present. Regular rate and rhythm, sinus rhythm on telemetry. Palpable peripheral pulses bilaterally. No edema present. No calf pain or tenderness noted. SCDs present. GASTROINTESTINAL: Abdomen soft, nontender, nondistended. Active bowel sounds present 4 quadrants. Tolerating diet. GENITOURINARY: Continues to void. INTEGUMENTARY: Skin is warm and dry with no clubbing or cyanosis is present. Right chest thoracic incisions well approximated and covered, no redness or drainage present. NEUROLOGIC: Cranial nerves II through XII intact. MUSKULOSKELETAL: Able to move all extremities, strength equal bilaterally, gait normal. PSYCHIATRIC: Alert and oriented to person place and time, appropriate affect, intact judgment and insight. - Allied health notes Allied health notes reviewed: nursing - Labs CBC & Chem 7: 02/20/24 04:42 02/20/24 04:42 Labs: Abnormal Lab Results - Last 24 Hours (Table) 02/19/24 02/19/24 02/20/24 Range/Units 08:22 08:22 04:42 WBC 15.42 H (4.50-10.00) X 10*3/uL RBC 3.51 L (4.40-5.60) X 10*6/uL Hgb 10.4 L (13.0-17.0) g/dL Hct 32.4 L (39.6-50.0) % Plt Count 604 H (140-440) X 10*3/uL Immature Gran # 0.13 H (0.00-0.04) X 10*3/uL Neutrophils # 14.23 H (1.80-7.70) X 10*3/uL Lymphocytes # 0.72 L (0.90-5.00) X 10*3/uL Eosinophils # 0 L (0.04-0.35) X 10*3/uL Sodium (135-145) mmol/L Anion Gap (4.00-12.00) mmol/L Glucose (70-110) mg/dL Calcium (8.7-10.3) mg/dL Magnesium (1.5-2.4) mg/dL Iron 8 L (65-175) UG/DL TIBC 162 L (228-460) UG/DL % Saturation 4.94 L (15.00-50.00) Transferrin 116.0 L (204.0-354.0) mg/dL Ferritin 799.0 H (22.0-322.0) ng/mL Folate 3.70 L (4.40-31.00) ng/mL 02/20/24 Range/Units 04:42 WBC (4.50-10.00) X 10*3/uL RBC (4.40-5.60) X 10*6/uL Hgb (13.0-17.0) g/dL Hct (39.6-50.0) % Plt Count (140-440) X 10*3/uL Immature Gran # (0.00-0.04) X 10*3/uL Neutrophils # (1.80-7.70) X 10*3/uL Lymphocytes # (0.90-5.00) X 10*3/uL Eosinophils # (0.04-0.35) X 10*3/uL Sodium 133 L (135-145) mmol/L Anion Gap 13.70 H (4.00-12.00) mmol/L Glucose 199 H (70-110) mg/dL Calcium 8.6 L (8.7-10.3) mg/dL Magnesium 2.7 H (1.5-2.4) mg/dL Iron (65-175) UG/DL TIBC (228-460) UG/DL % Saturation (15.00-50.00) Transferrin (204.0-354.0) mg/dL Ferritin (22.0-322.0) ng/mL Folate (4.40-31.00) ng/mL Microbiology - Last 24 Hours (Table) 02/18/24 15:35 Blood Culture - Preliminary Blood 02/18/24 15:52 Blood Culture - Preliminary Blood 02/18/24 22:17 Gram Stain - Preliminary Sputum Sputum Culture - Preliminary - Imaging and Cardiology Chest x-ray: report reviewed, image reviewed Assessment and Plan Assessment: Acute hypoxic respiratory failure secondary to acute infection in the right middle lobe Right midlung consolidation, rule out right middle lobe syndrome with secondary pneumonia, status post bronchoscopy performed on 02/11/2024, refer to the full report Leukocytosis secondary to above Hyponatremia Squamous cell carcinoma, status post completion right upper lobectomy History of atrial fibrillation, on Eliquis as an outpatient Chronic obstructive pulmonary disease Chronic back pain History of tobacco dependence, with recent smoking cessation in December 2023 Benign prostatic hypertrophy Obesity with a BMI of 31.6 kg/m Anxiety Depression Plan: Wean oxygen as tolerated. Encourage use of incentive spirometry 10 times every hour while awake. Bronchodilator management per pulmonary medicine. Continue to monitor daily chest x-rays. Continue to follow results of sputum culture. Antibiotic management per pulmonary/critical care medicine. Increase activity as tolerated. Out of bed for all meals. Physical therapy consulted. Medical management other comorbidities per primary care service. Continue Mucomyst and Mucinex. More recommendations to follow based on patient's clinical course. Time with Patient: Less than 30
[2024-02-21 08:37] LABS: Basophils # (A) 0.03 X 10*3/uL (0.00-0.10); Basophils % (A) 0.2 %; Eosinophils # (A) 0.01 X 10*3/uL (0.04-0.35); Eosinophils % (A) 0.1 %; HCT 30.9 % (39.6-50.0); HGB 9.9 g/dL (13.0-17.0); Lymphocytes # (A) 1.15 X 10*3/uL (0.90-5.00); MCH 29.7 pg (27.0-32.0); MCV 92.8 FL (80.0-97.0); Mean Platelet Volume 9.6 FL (9.5-12.2); Monocytes # (A) 0.55 X 10*3/uL (0.20-1.00); Monocytes % (A) 3.8 %; NRBC Per 100 WBC 0 X 10*3/uL (0.00-0.01); Neutrophils # (A) 12.54 X 10*3/uL (1.80-7.70); Neutrophils % (A) 87.1 %; Platelet Count 658 X 10*3/uL (140-440); RBC 3.33 X 10*6/uL (4.40-5.60); RDW 13.6 % (11.5-14.5)
[2024-02-21 09:00] LABS: ALT 56 U/L (10-49); AST 52 U/L (14-35); Albumin 3.2 g/dL (3.8-4.9); Albumin/Globulin Ratio 1.14 Ratio (1.60-3.17); Alkaline Phosphatase 114 U/L (41-126); BUN/Creat Ratio 19.62 Ratio (12.00-20.00); Blood Urea Nitrogen 15.7 mg/dL (9.0-27.0); Calcium 8.3 mg/dL (8.7-10.3); Chloride 97 mmol/L (96-109); Globulin 2.8 g/dL (1.6-3.3); Glucose 104 mg/dL (70-110); Potassium 4.8 mmol/L (3.5-5.5); Sodium 134 mmol/L (135-145); Total Bilirubin 0.3 mg/dL (0.3-1.2)
[2024-02-21] MEDS: FOLIC ACID 1 MG TAB PO SCH (09:05)
--- NOTE | 2024-02-21 14:13 | P.PN ---
Subjective Cough, diaphoresis, shortness of breath Brian is a 63-year-old white male with known squamous cell carcinoma. He had underwent a mediastinal lymph node dissection and wedge resection of the lung on December 27, 2023. He returned back and February 08 for a right upper lobe lobectomy. While here he had collapse of the right middle lung and underwent a bronchoscopy and bronc and BAL. He developed a complication of paroxysmal atrial fibrillation during his stay. He did improve and was sent home in stable condition. He returned emergency room on 112 with shortness of breath and cough was sent home. He returned again on 02/18/2024 with worsening symptoms. Found to have a leukocytosis coughing and not feeling well. Also complaining of left-sided chest pain and right-sided chest pain at his surgical site. This morning he isb in sinus rhythm per telemetry heart rates controlled in the 80s O2 saturation 93% on room air. Laboratory studies now show a leukocytosis 16 6 hemoglobin 10.7 and a left shift with the neutrophils at 14,600. Blood chemistries do show a hyponatremia with a sodium 127 chloride 95, calcium is 7.9. Total protein is 6.2 with a albumin of 3.2. 02/20/2024: Brian was reevaluated for his right middle lobe pneumonia. Vital signs show he is afebrile heart rate and respiratory rate blood pressure control. He is on 6 L of O2 via nasal cannula. WBC count is improved now 15.4, hemoglobin 10.4 neutrophils are 14.23, chemistries show sodium 133. Sputum and blood cultures pending. 02/21/2024: Parents feeling slightly better today. He is being treated for his right middle lobe pneumonia. His regular lobe and collapsed after his right upper lobe surgical assisted lobectomy. He remains on ceftriaxone and az ithromycin for antibiotics apixaban for anticoagulation acetylcysteine and guaifenesin for mucus production. He is on Symbicort and Atrovent for inhalation therapy at this time. Objective - Vital Signs Vital signs: Vital Signs Temp 98.0 F 02/21/24 14:00 Pulse 84 02/21/24 14:00 Resp 16 02/21/24 14:00 BP 144/86 02/21/24 14:00 Pulse Ox 91 L 02/21/24 14:00 FiO2 Intake & Output 02/20/24 02/21/24 02/21/24 18:59 06:59 18:59 Other: Voiding Method Toilet Toilet # Voids 2 - Exam GENERAL: male in hospital bed in no acute distress. NECK: Normal range of motion, supple without lymphadenopathy or JVD, no thyromegaly LUNGS: Breath sounds show much less wheezing and coarseness no active rales today overall improved HEART: Regular rate and rhythm without murmurs, rubs or gallops.S1S2 Normal ABDOMEN: Soft, nontender, normoactive bowel sounds. No guarding, no rebound. No masses appreciated. EXTREMITIES: Normal range of motion, no pitting or edema. No clubbing or cyanosis. NEUROLOGICAL: Cranial nerves II through XII grossly intact. Normal speech, normal gait. PSYCH: Normal mood, normal affect. SKIN: Warm, Dry, normal turgor, no rashes or lesions noted. - Labs CBC & Chem 7: 02/21/24 03:51 02/21/24 03:51 Labs: Abnormal Lab Results - Last 24 Hours (Table) 02/21/24 02/21/24 Range/Units 03:51 03:51 WBC 14.40 H (4.50-10.00) X 10*3/uL RBC 3.33 L (4.40-5.60) X 10*6/uL Hgb 9.9 L (13.0-17.0) g/dL Hct 30.9 L (39.6-50.0) % Plt Count 658 H (140-440) X 10*3/uL Immature Gran # 0.12 H (0.00-0.04) X 10*3/uL Neutrophils # 12.54 H (1.80-7.70) X 10*3/uL Eosinophils # 0.01 L (0.04-0.35) X 10*3/uL Sodium 134 L (135-145) mmol/L Anion Gap 13.00 H (4.00-12.00) mmol/L Calcium 8.3 L (8.7-10.3) mg/dL AST 52 H (14-35) U/L ALT 56 H (10-49) U/L Total Protein 6.0 L (6.2-8.2) g/dL Albumin 3.2 L (3.8-4.9) g/dL Albumin/Globulin Ratio 1.14 L (1.60-3.17) Ratio Microbiology - Last 24 Hours (Table) 02/18/24 22:17 Gram Stain - Final Sputum Sputum Culture - Final 02/18/24 15:35 Blood Culture - Preliminary Blood 02/18/24 15:52 Blood Culture - Preliminary Blood Assessment and Plan (1) Hyponatremia Current Visit: Yes Status: Acute Code(s): E87.1 - HYPO-OSMOLALITY AND HYPONATREMIA SNOMED Code(s): 68516181 (2) Normocytic anemia Current Visit: Yes Status: Acute Code(s): D64.9 - ANEMIA, UNSPECIFIED SNOMED Code(s): 731446066 (3) Postoperative pneumonia Current Visit: Yes Status: Acute Code(s): J95.89 - OTH POSTPROC COMPLICATIONS AND DISORDERS OF RESP SYS, NEC; J18.9 - PNEUMONIA, UNSPECIFIED ORGANISM SNOMED Code(s): 531689837 (4) Anxiety Current Visit: No Status: Acute Code(s): F41.9 - ANXIETY DISORDER, UNSPECIFIED SNOMED Code(s): 39643197 (5) Atelectasis of right lung Current Visit: No Status: Acute Code(s): J98.11 - ATELECTASIS SNOMED Code(s): 20028577 (6) COPD (chronic obstructive pulmonary disease) Current Visit: No Status: Acute Code(s): J44.9 - CHRONIC OBSTRUCTIVE PULMONARY DISEASE, UNSPECIFIED SNOMED Code(s): 28153733 (7) Chest pain Current Visit: No Status: Acute Code(s): R07.9 - CHEST PAIN, UNSPECIFIED SNOMED Code(s): 07962689 (8) Moderate recurrent major depression Current Visit: No Status: Acute Code(s): F33.1 - MAJOR DEPRESSIVE DISORDER, RECURRENT, MODERATE SNOMED Code(s): 66867123 (9) New onset atrial fibrillation Current Visit: No Status: Acute Code(s): I48.91 - UNSPECIFIED ATRIAL FIBRILLATION SNOMED Code(s): 51388057 (10) S/P lobectomy of lung Current Visit: No Status: Acute Code(s): Z90.2 - ACQUIRED ABSENCE OF LUNG [PART OF] SNOMED Code(s): 72430531670446026 (11) Squamous cell lung cancer Current Visit: No Status: Acute Code(s): C34.90 - MALIGNANT NEOPLASM OF UNSP PART OF UNSP BRONCHUS OR LUNG SNOMED Code(s): 751404294 Plan: He will continue on his current medications, wait on recommendations from thoracic surgery and pulmonology. They may repeat his bronchoscopy that was done a week and a half ago. Medicine will reevaluate in the next 24 hours.
--- NOTE | 2024-02-21 14:39 | P.PN ---
Subjective Progress Note Date: 02/21/24 This is a very pleasant 63-year-old male patient with a known history of chronic and ongoing tobacco dependence of 48 years, chronic obstructive pulmonary disease, chronic back pain, atrial fibrillation. He also has a history of a solitary right upper lobe pulmonary nodule that was positive for squamous cell carcinoma based on a previous wedge resection in December 2023. He was brought back into the hospital for a robotically assisted right upper lobe lobectomy on February 09, 2024. During that hospitalization he was found to have a right middle lobe collapse and had undergone bronchoscopy with BAL. No endobronchial lesions or mucous was identified. He was discharged home on February 13, 2024. He was seen in the emergency department on February 17, 2024 for increasing shortness of breath cough and congestion. He was given azithromycin and discharged to home. He returned to the emergency room again the following day February 18, 2024 with similar symptoms that seem to be worsening. He had a hard time sleeping and was having right sided chest pain. Increased mucus. Chest x-ray shows similar findings of a large predominant right perihilar opacity. Stable small right apical hydropneumothorax. Small increasing right pleural effusion. White count 16.6. Hemoglobin 10.7. Platelets 552. Sodium 127. Potassium 5.1. Bicarb 24. BUN 20. Creatinine 0.98. Glucose 104. Viral screen negative. He is seen today in consultation on the regular medical floor. He is currently sitting up in bed. Awake and alert in no acute distress. He is quite weak. He is maintaining O2 saturations in the low 90s on room air. 02/20/2024, the patient is being seen for a follow-up. Patient is post right upper lobectomy for non-small cell lung cancer. 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 The patient has a persistent atelectasis/pneumon ia of the right middle lobe. Currently, the patient is hospitalized for worsening shortness of breath. Procalcitonin level is 0.47. Electrolytes are all within normal range with a BUN of 15 and a creatinine of 0.9. The white cell count is at 15.4 with a hemoglobin of 10.4 and a platelet count of 406. The right upper lobe resection was done on 02/10/2024 and it is consistent with benign lung without any residual malignancy. The lymph nodes are also negative for malignancy. The patient is currently on IV Rocephin. The patient is also on Symbicort as maintenance 2 puffs twice a day and IV fluids with normal saline at rate of 75 cc an hour. He is receiving nebulized albuterol 4 times a day. He is oxygen requirements are at 6 L with a pulse ox of 99% On 02/21/2024, the patient is being seen for a follow-up. The patient is on 5 L of oxygen by nasal cannula and the patient is pulse oxing 91%. Continues to have a congested cough. The blood culture was negative. The sputum sample was negative. The patient's white cell count is at 14 with a hemoglobin 9.9 and a platelet count of 658. BUN is 15 with a creatinine of 0.8 and sodium levels at 134. Remains on Ventolin nebulized treatments, Symbicort maintenance and IV Rocephin. The plan is to repeat the patient's bronchoscopy in a.m. and to reevaluate the right middle lobe bronchus. The chest x-ray from today is essentially unchanged. There is a masslike opacity in the right hilum which is probably an atelectatic right middle lobe. Objective - Vital Signs Vital signs: Vital Signs Temp 98.7 F 02/21/24 07:49 Pulse 80 02/21/24 09:45 Resp 16 02/21/24 07:49 BP 126/71 02/21/24 07:49 Pulse Ox 99 02/21/24 09:18 FiO2 Intake & Output 02/20/24 02/21/24 02/21/24 18:59 06:59 18:59 Other: Voiding Method Toilet Toilet # Voids 2 - Exam GENERAL EXAM: Alert, weak 63-year-old male, 4 L of O2 nasal cannula with a pulse ox of 99% HEAD: Normocephalic. EYES: Normal reaction of pupils, equal size. NOSE: Clear with pink turbinates. THROAT: No erythema or exudates. NECK: No masses, no JVD. CHEST: No chest wall deformity. LUNGS: Equal air entry with coarse rhonchi throughout. CVS: S1 and S2 normal with no audible murmur, regular rhythm. ABDOMEN: No hepatosplenomegaly, normal bowel sounds, no guarding or rigidity. SPINE: No scoliosis or deformity SKIN: No rashes CENTRAL NERVOUS SYSTEM: No focal deficits, tone is normal in all 4 extremities. EXTREMITIES: There is no peripheral edema. No clubbing, no cyanosis. Peripheral pulses are intact. - Labs CBC & Chem 7: 02/21/24 03:51 02/21/24 03:51 Labs: Abnormal Lab Results - Last 24 Hours (Table) 02/21/24 02/21/24 Range/Units 03:51 03:51 WBC 14.40 H (4.50-10.00) X 10*3/uL RBC 3.33 L (4.40-5.60) X 10*6/uL Hgb 9.9 L (13.0-17.0) g/dL Hct 30.9 L (39.6-50.0) % Plt Count 658 H (140-440) X 10*3/uL Immature Gran # 0.12 H (0.00-0.04) X 10*3/uL Neutrophils # 12.54 H (1.80-7.70) X 10*3/uL Eosinophils # 0.01 L (0.04-0.35) X 10*3/uL Sodium 134 L (135-145) mmol/L Anion Gap 13.00 H (4.00-12.00) mmol/L Calcium 8.3 L (8.7-10.3) mg/dL AST 52 H (14-35) U/L ALT 56 H (10-49) U/L Total Protein 6.0 L (6.2-8.2) g/dL Albumin 3.2 L (3.8-4.9) g/dL Albumin/Globulin Ratio 1.14 L (1.60-3.17) Ratio Microbiology - Last 24 Hours (Table) 02/18/24 22:17 Gram Stain - Final Sputum Sputum Culture - Final 02/18/24 15:35 Blood Culture - Preliminary Blood 02/18/24 15:52 Blood Culture - Preliminary Blood Assessment and Plan Plan: Acute hypoxemic respiratory failure, currently on 4 L of oxygen by nasal cannula Right upper completion lobectomy for non-small cell lung cancer with squamous cell type. Patient was discharged home on 02/10/2024. The patient is also status post wedge resection, right upper lobe solitary pulmonary nodule, which was positive for squamous cell carcinoma, performed on 12/27/2023, stage I bronchogenic carcinoma, squamous cell, T1b, N0 M0 Right mid lung consolidation, ruled out right middle lobe syndrome with secondary pneumonia, status post bronchoscopy performed on 02/11/2024, refer to the full report Leukocytosis secondary to above Hyponatremia, recovered with IV fluids and the sodium level is normalized Chronic and ongoing tobacco dependence of 48 years COPD Chronic back pain Chronic atrial fibrillation, rate is controlled and patient is currently on amiodarone 200 mg p.o. twice a day metoprolol 12.5 mg twice daily and the pat ient is on anticoagulation with Eliquis. Plan: The patient is currently on 4 L of O2 nasal cannula Chest x-ray is unchanged Masslike opacity in the right hilar area, likely an atelectatic right middle lobe, consider right middle lobe syndrome Continue ceftriaxone None elevated procalcitonin Anticoagulated with Eliquis Continue bronchodilators with albuterol nebulized treatments 4 times a day and Symbicort as maintenance Encouraged use of incentive spirometer Will need another bronchoscopy for evaluation of the right middle lobe, keep n.p.o. after midnight and bronchoscopy in a.m. We will continue to follow and make further recommendations based on his clinical status
--- NOTE | 2024-02-21 14:58 | P.PN ---
Subjective Progress Note Date: 02/21/24 Principal diagnosis: Stage 1A NSCLC, pneumonia Pt feels ok, still coughing up reddish/brown, thick sputum, no recent fever. Tolerating oral intake Objective - Vital Signs Vital signs: Vital Signs Temp 98.7 F 02/21/24 07:49 Pulse 80 02/21/24 09:45 Resp 16 02/21/24 07:49 BP 126/71 02/21/24 07:49 Pulse Ox 99 02/21/24 09:18 FiO2 Intake & Output 02/20/24 02/21/24 02/21/24 18:59 06:59 18:59 Other: Voiding Method Toilet Toilet # Voids 2 - Constitutional General appearance: Present: average body habitus, cooperative, no acute distress - EENT Eyes: Present: anicteric sclerae, EOMI ENT: Present: hearing grossly normal, normal oropharynx - Respiratory Details: resp unlabored at rest, get SOB with activity, thick reddish brown sputum expectorated - Cardiovascular Rhythm: regular - Peripheral edema leg Peripheral Edema: bilateral: None - Integumentary Integumentary: Present: normal - Neurologic Neurologic: Present: CNII-XII intact - Psychiatric Psychiatric: Present: A&O x's 3, appropriate affect, intact judgment & insight - Labs CBC & Chem 7: 02/21/24 03:51 02/21/24 03:51 Labs: Abnormal Lab Results - Last 24 Hours (Table) 02/19/24 02/21/24 02/21/24 Range/Units 08:22 03:51 03:51 WBC 14.40 H (4.50-10.00) X 10*3/uL RBC 3.33 L (4.40-5.60) X 10*6/uL Hgb 9.9 L (13.0-17.0) g/dL Hct 30.9 L (39.6-50.0) % Plt Count 658 H (140-440) X 10*3/uL Immature Gran # 0.12 H (0.00-0.04) X 10*3/uL Neutrophils # 12.54 H (1.80-7.70) X 10*3/uL Eosinophils # 0.01 L (0.04-0.35) X 10*3/uL Sodium 134 L (135-145) mmol/L Anion Gap 13.00 H (4.00-12.00) mmol/L Calcium 8.3 L (8.7-10.3) mg/dL Iron 8 L (65-175) UG/DL TIBC 162 L (228-460) UG/DL % Saturation 4.94 L (15.00-50.00) Transferrin 116.0 L (204.0-354.0) mg/dL Ferritin 799.0 H (22.0-322.0) ng/mL AST 52 H (14-35) U/L ALT 56 H (10-49) U/L Total Protein 6.0 L (6.2-8.2) g/dL Albumin 3.2 L (3.8-4.9) g/dL Albumin/Globulin Ratio 1.14 L (1.60-3.17) Ratio Microbiology - Last 24 Hours (Table) 02/18/24 22:17 Gram Stain - Final Sputum Sputum Culture - Final 02/18/24 15:35 Blood Culture - Preliminary Blood 02/18/24 15:52 Blood Culture - Preliminary Blood - Imaging and Cardiology Chest x-ray: report reviewed Assessment and Plan (1) Pneumonia Current Visit: Yes Status: Acute Priority: High Code(s): J18.9 - PNEUM ONIA, UNSPECIFIED ORGANISM SNOMED Code(s): 564625200 (2) Squamous cell lung cancer Current Visit: No Status: Acute Priority: Medium Code(s): C34.90 - MALIGNANT NEOPLASM OF UNSP PART OF UNSP BRONCHUS OR LUNG SNOMED Code(s): 425182427 (3) Normocytic anemia Current Visit: Yes Status: Acute Priority: Medium Code(s): D64.9 - ANEMIA, UNSPECIFIED SNOMED Code(s): 134976654 (4) Folic acid deficiency Current Visit: Yes Status: Acute Priority: Medium Code(s): E53.8 - DEFICIENCY OF OTHER SPECIFIED B GROUP VITAMINS SNOMED Code(s): 043252647 Plan: Pneumonia -Postoperative HAP -Developed right middle lobe collapse with atelectasis following right upper lobe wedge resection with mediastinal lymph node dissection on 12/27/2023 -Bronchoscopy on 02/11/2024 revealed no evidence of endobronchial lesions or obstruction in the right middle or right lower lobe and no abnormal findings in the left lung -He did return to the ED on 02/17/2024 with increased dyspnea and fever with chest x-rays showing persistent masslike consolidations in the right lung -He was given ceftriaxone/azithromycin and continues on ceftriaxone -Clinically, dyspnea improved, cough still productive with brownish-red sputum but this is in smaller amts and not as foul smelling as before -Defer management of postoperative pneumonia to the Pulmonology and Cardiothoracic teams\ Normocytic anemia -Saturation 4.9%, ferritin 799. Most consistent with inflammation. Plan would be to recheck iron studies outpatient after patient healing from surgery and recovered from acute illness. -Folic acid deficiency noted. Folic acid started. -Low normal B12 levels. Methylmalonic acid ordered. -Hemoglobin stable today at 9.9, no transfusions at this time. Transfuse for hemoglobin less than 7 or, if patient is symptomatic. Elevated WBC and platelet counts, reactive. 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 PET/CT 11/03/2023 noted right upper lobe nodule measuring 1.1 cm with an SUV of 4.8 that increased FDG avidity compared to PET/CT in December 2021 with no other concerning findings. Right upper lobe wedge resection with lymph node dissection performed on 12/27/2023 noted 1.3 cm grade 2 invasive squamous cell carcinoma less than 2 mm from the parenchymal margin with at least 6 lymph nodes from R4, level 7, R8, R10, and R11 all negative. Given the close parenchymal margin, he underwent right upper lobectomy on 02/09/2024 that noted no residual neoplasm with 2 additional hilar lymph nodes being negative for malignancy. Final pathological staging [id number] squamous cell carcinoma -No adjuvant treatment is indicated -He does require routine surveillance with CT scans of the chest every 3 to 4 months for the first 2 years per NCCN guidelines Doctor attests: I performed a history and physical examination of this patient, developed impression and plan of care. Discussed with dictator. I agree with dictators note, documented as a scribe.
[2024-02-21] MEDS: ALBUTEROL NEBULIZED 2.5 MG/3 ML INHALATION SCH (16:34)
[2024-02-22] MEDS: IPRATROPIUM-ALBUTEROL 3 ML NEB INHALATION PRN (02:22)
--- NOTE | 2024-02-22 03:30 | XR ---
EXAM: XR Chest, 1 View CLINICAL HISTORY: ITS.REASON XR Reason: SOB TECHNIQUE: Frontal view of the chest. COMPARISON: CXR, 02/19/2024. FINDINGS: Lungs: RIGHT hilar mass measures 7.9 x 15.2 cm, which is slightly increasing in size. No consolidation. Pleural space: Unremarkable. No pneumothorax. Heart: Unremarkable. No cardiomegaly. Mediastinum: Unremarkable. Normal mediastinal contour. Bones/joints: Unremarkable. No acute fracture. Other findings: The need for chest CT follow-up should be determined clinically. IMPRESSION: 1. RIGHT hilar mass measures 7.9 x 15.2 cm, which is slightly increasing in size. 2. The need for chest CT follow-up should be determined clinically.
--- NOTE | 2024-02-22 07:36 | P.PN ---
Subjective Progress Note Date: 02/22/24 Principal diagnosis: Recent right upper wedge resection/right upper lobectomy on February 09, 2024. 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 He also has a past medical history significant for paroxysmal atrial fibrillation on Eliquis for anticoagulation as an outpatient, COPD, obesity, tobacco dependence, quit smoking in December 2023, chronic back pain with chronic narcotic dependency as an outpatient, benign prostatic hypertrophy anxiety and depression. The patient was seen and examined in follow-up today February 22, 2024 at his bedside on the fourth floor medical surgical unit. He is currently sitting up in bed, is awake, alert, oriented x 3 and is in no acute apparent distress. He states he is having some pain to his chest today with coughing, and is having some episodes of shortness of breath, and is also complaining of a persistent productive cough with brownish tenacious sputum. Final sputum culture results shows few normal respiratory amisha, he remains on Rocephin for antibiotic coverage managed by pulmonary/critical care medicine. The patient remained afebrile in the last 24 hours. He reports he has continued with cough throughout the night and was unable to sleep. He is scheduled for a bronchoscopy to be completed by Dr. Smith today. He has been afebrile in the last 24 hours. He has family members present at his bedside. Pathology results from February 09, 2024 shows benign lung with hemorrhage and emphysematous changes, no residual neoplasm was identified. Bronchial and vascular margins were negative for malignancy, and 2 hilar lymph nodes negative for malignancy. Oxygen saturations are 97% on 5 L nasal cannula and he is achieving 1500 mL on his incentive spirometry with encouragement. Chest x-ray results were reviewed. Objective - Vital Signs Vital signs: Vital Signs Temp 98.2 F 02/22/24 04:11 Pulse 89 02/22/24 04:55 Resp 32 H 02/22/24 04:42 BP 130/75 02/22/24 04:11 Pulse Ox 97 02/22/24 04:11 FiO2 Intake & Output 02/21/24 02/22/2402/21/24 18:59 06:59 18:59 Other: # Voids 5 2 # Bowel Movements 1 - Exam CONSTITUTIONAL: Appears comfortable, cooperative, no acute distress. RESPIRATORY: Lungs sounds with scattered rhonchi throughout, diminished to his bilateral bases right greater than left. Respirations symmetrical, nonlabored. Currently on 5 L nasal cannula with oxygen saturation 97%. Able to achieve 1500 mL on incentive spirometry. Strong productive cough. CARDIOVASCULAR: S1, S2 present. Regular rate and rhythm. Palpable peripheral pulses bilaterally. No edema present. No calf pain or tenderness noted. SCDs present. GASTROINTESTINAL: Abdomen soft, nontender, nondistended. Active bowel sounds present 4 quadrants. Tolerating diet. GENITOURINARY: Continues to void. INTEGUMENTARY: Skin is warm and dry with no clubbing or cyanosis is present. Right chest thoracic incisions well approximated and covered, no redness or drainage present. NEUROLOGIC: Cranial nerves II through XII intact. MUSKULOSKELETAL: Able to move all extremities, strength equal bilaterally, gait normal. PSYCHIATRIC: Alert and oriented to person place and time, appropriate affect, intact judgment and insight. - Allied health notes Allied health notes reviewed: nursing - Labs CBC & Chem 7: 02/21/24 03:51 02/21/24 03:51 Labs: Abnormal Lab Results - Last 24 Hours (Table) 02/21/24 02/21/24 Range/Units 03:51 03:51 WBC 14.40 H (4.50-10.00) X 10*3/uL RBC 3.33 L (4.40-5.60) X 10*6/uL Hgb 9.9 L (13.0-17.0) g/dL Hct 30.9 L (39.6-50.0) % Plt Count 658 H (140-440) X 10*3/uL Immature Gran # 0.12 H (0.00-0.04) X 10*3/uL Neutrophils # 12.54 H (1.80-7.70) X 10*3/uL Eosinophils # 0.01 L (0.04-0.35) X 10*3/uL Sodium 134 L (135-145) mmol/L Anion Gap 13.00 H (4.00-12.00) mmol/L Calcium 8.3 L (8.7-10.3) mg/dL AST 52 H (14-35) U/L ALT 56 H (10-49) U/L Total Protein 6.0 L (6.2-8.2) g/dL Albumin 3.2 L (3.8-4.9) g/dL Albumin/Globulin Ratio 1.14 L (1.60-3.17) Ratio Microbiology - Last 24 Hours (Table) 02/18/24 15:35 Blood Culture - Preliminary Blood 02/18/24 15:52 Blood Culture - Preliminary Blood 02/18/24 22:17 Gram Stain - Final Sputum Sputum Culture - Final - Imaging and Cardiology Chest x-ray: report reviewed, image reviewed Assessment and Plan Assessment: Acute hypoxic respiratory failure secondary to acute infection in the right middle lobe Right midlung consolidation, rule out right middle lobe syndrome with secondary pneumonia, status post bronchoscopy performed on 02/11/2024, refer to the full report Leukocytosis secondary to above Hyponatremia Squamous cell carcinoma, status post completion right upper lobectomy History of atrial fibrillation, on Eliquis as an outpatient Chronic obstructive pulmonary disease Chronic back pain History of tobacco dependence, with recent smoking cessation in December 2023 Benign prostatic hypertrophy Obesity with a BMI of 31.6 kg/m Anxiety Depression Plan: Chest physical therapy ordered, every 4 hours. Wean oxygen as tolerated. Encourage use of incentive spirometry 10 times every hour while awake. Bronchodilator management per pulmonary medicine. Continue to monitor daily chest x-rays. Continue to follow results of sputum culture. Antibiotic management per pulmonary/critical care medicine. Increase activity as tolerated. Out of bed for all meals. Physical therapy consulted. Medical management other comorbidities per primary care service. Continue Mucomyst and Mucinex. N.p.o. at this time for scheduled bronchoscopy today at 11 AM to be completed by Dr. Smith. More recommendations to follow based on patient's clinical course. Time with Patient: Greater than 30
[2024-02-22] MEDS: IPRATROPIUM-ALBUTEROL 3 ML NEB INHALATION SCH (08:28)
[2024-02-22 09:15] LABS: Blood Urea Nitrogen 13.6 mg/dL (9.0-27.0); Calcium 8.3 mg/dL (8.7-10.3); Carbon Dioxide 23.9 mmol/L (21.6-31.8); Chloride 99 mmol/L (96-109); Glucose 127 mg/dL (70-110); Potassium 4.6 mmol/L (3.5-5.5); Sodium 133 mmol/L (135-145)
--- NOTE | 2024-02-22 09:22 | CT ---
EXAMINATION TYPE: CT chest wo con DATE OF EXAM: 02/22/2024 COMPARISON: 10/06/2023 HISTORY: 63-year-old male Post op right upper lobectomy, productive cough TECHNIQUE: Contiguous axial scanning of the chest without IV contrast. Coronal/sagittal reconstructi ons performed. CT DLP: 468.4mGycm. Automatic exposure control utilized for a dose reduction. FINDINGS: The heart is normal size without pericardial effusion. Aorta normal caliber with minimal atherosclerotic arch calcifications and conventional arch vessel br anching anatomy. Patient status post right upper lobectomy. There is resection cavity noted along the right suprahilar region and medial right upper hemithorax. Some heterogeneous material is present within the resectio n cavity that has the appearance of lung parenchyma showing areas of groundglass and airspace disease . Air-fluid level is also present within the cavity. An adjacent 2.6 cm nodule posterior right midlung adjacent to the staple line, axial image 19. There is a small right pleural effusion with more small to moderate sized subpulmonic component. Multifocal round glass opacity is present in the bilateral lungs with more focal patchy medial right basilar and posterior left basilar opacity. Visualized upper abdomen shows no gross abnormality. Bones: Anterior endplate spondylosis mid to lower thoracic spine. IMPRESSION: 1. Status post right upper lobectomy. There is a resection cavity at the right suprahilar region and medial upper right hemithorax containing a small air-fluid level as well as heterogeneous density armando t has the appearance of lung parenchyma opacified by groundglass and airspace disease. Correlate as t o etiology including the possibility of sequestered lung tissue. 2. A 2.6 cm nodule posterior right midlung adjacent to the staple line suspected postsurgical change or some trapped fluid. Attention on follow-up. 3. Small to moderate right pleural effusion with a subpulmonic component. 4. Multifocal groundglass infiltrate and more focal patchy opacity medial right base and posterior le ft base. Correlate to exclude aspiration or atypical pneumonia. [facility], , 02/22/2024 9:19 AM
[2024-02-22] MEDS: PIPERACILLIN-TAZOBACTAM 3.375 GM in SODIUM CHLORIDE 0.9% 100 ML IVPB SCH (10:13)
[2024-02-22] MEDS ORDERED: ALBUTEROL HFA INHALER INHALATION ONE (11:00)
[2024-02-22] MEDS ORDERED: LIDOCAINE 2% (PF) 20 MG/ML 5 ML VIAL ONE (11:00)
[2024-02-22] MEDS: IV FLUID CONTINUATION 1,000 ML IV ONE (11:00)
[2024-02-22] MEDS ORDERED: KETAMINE HCL IN 0.9 % NACL 50 MG/5 ML SYRINGE ONE (11:00)
[2024-02-22] MEDS ORDERED: MIDAZOLAM 2 MG/2 ML VIAL ONE (11:00)
[2024-02-22] MEDS ORDERED: PROPOFOL 10 MG/ML 20 ML VIAL IV ONE (11:00)
[2024-02-22] MEDS: LIDOCAINE 2% INJ 20 MG/ML INTRATRACH ONE (11:07)
--- NOTE | 2024-02-22 13:29 | P.PN ---
Subjective Cough, diaphoresis, shortness of breath Brian is a 63-year-old white male with known squamous cell carcinoma. He had underwent a mediastinal lymph node dissection and wedge resection of the lung on December 27, 2023. He returned back and February 08 for a right upper lobe lobectomy. While here he had collapse of the right middle lung and underwent a bronchoscopy and bronc and BAL. He developed a complication of paroxysmal atrial fibrillation during his stay. He did improve and was sent home in stable condition. He returned emergency room on 112 with shortness of breath and cough was sent home. He returned again on 02/18/2024 with worsening symptoms. Found to have a leukocytosis coughing and not feeling well. Also complaining of left-sided chest pain and right-sided chest pain at his surgical site. This morning he isb in sinus rhythm per telemetry heart rates controlled in the 80s O2 saturation 93% on room air. Laboratory studies now show a leukocytosis 16 6 hemoglobin 10.7 and a left shift with the neutrophils at 14,600. Blood chemistries do show a hyponatremia with a sodium 127 chloride 95, calcium is 7.9. Total protein is 6.2 with a albumin of 3.2. 02/20/2024: Brian was reevaluated for his right middle lobe pneumonia. Vital signs show he is afebrile heart rate and respiratory rate blood pressure control. He is on 6 L of O2 via nasal cannula. WBC count is improved now 15.4, hemoglobin 10.4 neutrophils are 14.23, chemistries show sodium 133. Sputum and blood cultures pending. 02/21/2024: Parents feeling slightly better today. He is being treated for his right middle lobe pneumonia. His regular lobe and collapsed after his right upper lobe surgical assisted lobectomy. He remains on ceftriaxone and az ithromycin for antibiotics apixaban for anticoagulation acetylcysteine and guaifenesin for mucus production. He is on Symbicort and Atrovent for inhalation therapy at this time. 02/22/2024: Patient could not be seen today as he was down for his bronchoscopy. Labs and chart are reviewed today. Patient remains on Zosyn. He has Eliquis for anticoagulation. He has DuoNeb updrafts or shortness of breath is on Mucomyst and Symbicort. Objective - Vital Signs Vital signs: Vital Signs Temp 98.3 F 02/22/24 07:40 Pulse 64 02/22/24 12:10 Resp 18 02/22/24 12:10 BP 121/60 02/22/24 12:10 Pulse Ox 93 L 02/22/24 12:10 FiO2 Intake & Output 02/21/24 02/22/24 02/22/24 18:59 06:59 18:59 Intake Total 300 Balance 300 Weight 99.79 kg Intake: IV 300 Other: # Voids 5 2 # Bowel Movements 1 - Exam Patient was unable to be seen as he was down for his bronchoscopy - Labs CBC & Chem 7: 02/21/24 03:51 02/22/24 03:22 Labs: Abnormal Lab Results - Last 24 Hours (Table) 02/22/24 Range/Units 03:22 Sodium 133 L (135-145) mmol/L Glucose 127 H (70-110) mg/dL Calcium 8.3 L (8.7-10.3) mg/dL Microbiology - Last 24 Hours (Table) 02/18/24 15:35 Blood Culture - Preliminary Blood 02/18/24 15:52 Blood Culture - Preliminary Blood 02/18/24 22:17 Gram Stain - Final Sputum Sputum Culture - Final Assessment and Plan (1) Postoperative pneumonia Current Visit: Yes Status: Acute Code(s): J95.89 - OTH POSTPROC COMPLICATIONS AND DISORDERS OF RESP SYS, NEC; J18.9 - PNEUMONIA, UNSPECIFIED ORGANISM SNOMED Code(s): 665220630 (2) S/P lobectomy of lung Current Visit: No Status: Acute Code(s): Z90.2 - ACQUIRED ABSENCE OF LUNG [PART OF] SNOMED Code(s): 38417343328796934 (3) Hyponatremia Current Visit: Yes Status: Acute Code(s): E87.1 - HYPO-OSMOLALITY AND HYPONATREMIA SNOMED Code(s): 12462161 (4) Normocytic anemia Current Visit: Yes Status: Acute Priority: Medium Code(s): D64.9 - ANEMIA, UNSPECIFIED SNOMED Code(s): 402439102 (5) Anxiety Current Visit: No Status: Acute Code(s): F41.9 - ANXIETY DISORDER, UNSPECIFIED SNOMED Code(s): 67858907 (6) Atelectasis of right lung Current Visit: No Status: Acute Code(s): J98.11 - ATELECTASIS SNOMED Code(s): 94278765 (7) COPD (chronic obstructive pulmonary disease) Current Visit: No Status: Acute Code(s): J44.9 - CHRONIC OBSTRUCTIVE PULMONARY DISEASE, UNSPECIFIED SNOMED Code(s): 23596335 (8) Chest pain Current Visit: No Status: Acute Code(s): R07.9 - CHEST PAIN, UNSPECIFIED SNOMED Code(s): 75314597 (9) Moderate recurrent major depression Current Visit: No Status: Acute Code(s): F33.1 - MAJOR DEPRESSIVE DISORDER, RECURRENT, MODERATE SNOMED Code(s): 79125917 (10) New onset atrial fibrillation Current Visit: No Status: Acute Code(s): I48.91 - UNSPECIFIED ATRIAL FIBRILLATION SNOMED Code(s): 84019719 (11) Squamous cell lung cancer Current Visit: No Status: Acute Priority: Medium Code(s): C34.90 - MALIGNANT NEOPLASM OF UNSP PART OF UNSP BRONCHUS OR LUNG SNOMED Code(s): 232196902 Plan: Patient be reevaluated tomorrow by family medicine, wait on further recommendations from pulmonology and thoracic surgery.
--- NOTE | 2024-02-22 20:16 | P.PN ---
Subjective Progress Note Date: 02/22/24 This is a very pleasant 63-year-old male patient with a known history of chronic and ongoing tobacco dependence of 48 years, chronic obstructive pulmonary disease, chronic back pain, atrial fibrillation. He also has a history of a solitary right upper lobe pulmonary nodule that was positive for squamous cell carcinoma based on a previous wedge resection in December 2023. He was brought back into the hospital for a robotically assisted right upper lobe lobectomy on February 09, 2024. During that hospitalization he was found to have a right middle lobe collapse and had undergone bronchoscopy with BAL. No endobronchial lesions or mucous was identified. He was discharged home on February 13, 2024. He was seen in the emergency department on February 17, 2024 for increasing shortness of breath cough and congestion. He was given azithromycin and discharged to home. He returned to the emergency room again the following day February 18, 2024 with similar symptoms that seem to be worsening. He had a hard time sleeping and was having right sided chest pain. Increased mucus. Chest x-ray shows similar findings of a large predominant right perihilar opacity. Stable small right apical hydropneumothorax. Small increasing right pleural effusion. White count 16.6. Hemoglobin 10.7. Platelets 552. Sodium 127. Potassium 5.1. Bicarb 24. BUN 20. Creatinine 0.98. Glucose 104. Viral screen negative. He is seen today in consultation on the regular medical floor. He is currently sitting up in bed. Awake and alert in no acute distress. He is quite weak. He is maintaining O2 saturations in the low 90s on room air. 02/20/2024, the patient is being seen for a follow-up. Patient is post right upper lobectomy for non-small cell lung cancer. 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 The patient has a persistent atelectasis/pneumon ia of the right middle lobe. Currently, the patient is hospitalized for worsening shortness of breath. Procalcitonin level is 0.47. Electrolytes are all within normal range with a BUN of 15 and a creatinine of 0.9. The white cell count is at 15.4 with a hemoglobin of 10.4 and a platelet count of 406. The right upper lobe resection was done on 02/10/2024 and it is consistent with benign lung without any residual malignancy. The lymph nodes are also negative for malignancy. The patient is currently on IV Rocephin. The patient is also on Symbicort as maintenance 2 puffs twice a day and IV fluids with normal saline at rate of 75 cc an hour. He is receiving nebulized albuterol 4 times a day. He is oxygen requirements are at 6 L with a pulse ox of 99% On 02/21/2024, the patient is being seen for a follow-up. The patient is on 5 L of oxygen by nasal cannula and the patient is pulse oxing 91%. Continues to have a congested cough. The blood culture was negative. The sputum sample was negative. The patient's white cell count is at 14 with a hemoglobin 9.9 and a platelet count of 658. BUN is 15 with a creatinine of 0.8 and sodium levels at 134. Remains on Ventolin nebulized treatments, Symbicort maintenance and IV Rocephin. The plan is to repeat the patient's bronchoscopy in a.m. and to reevaluate the right middle lobe bronchus. The chest x-ray from today is essentially unchanged. There is a masslike opacity in the right hilum which is probably an atelectatic right middle lobe. On 02/22/2024, patient is being seen for a follow-up. Earlier this morning, the patient was having significant respiratory distress and cough and congestion. He has required higher oxygen flow at 5 L/min nasal cannula with a pulse ox of 95%. Based on that, a CAT scan of the chest was completed this morning without contrast and the CAT scan showed right upper lobectomy, a cavity was seen in the right suprahilar area with a atelectatic right middle lobe consistent with right middle lobe syndrome, /consolidation/groundglass changes and the patient also had some groundglass opacities in the left upper lobe. Airspace disease also seen in the right with an air-fluid level within the cavity. Small right-sided pleural effusion was noted based on those findings, a bronchoscopy was performed today and as expected, the patient had significant narrowing of the right middle lobe bronchus. There was evidence of bronchomalacia. I was able to pass the bronchoscope to the right middle lobe bronchus and visualize the right middle lobe and right lower lobe. Therapeutic airway suctioning was done. 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 Based on those findings, the patient was started on IV Zosyn and antibiotic modification was done. He seems to be much more comfortable post bronchoscopy. He has been placed on anticoagulation regarding paroxysmal atrial fibrillation. His current rhythm has remained sinus and the patient will be taken off the anticoagulation. The sodium levels at 133, BUN 13 with a creatinine 0.8. The white cell count from yesterday was at 14.4 with a hemoglobin 9.9. The procalcitonin level is at 0.47. Objective - Vital Signs Vital signs: Vital Signs Temp 98.3 F 02/22/24 07:40 Pulse 90 02/22/24 08:30 Resp 19 02/22/24 07:40 BP 113/60 02/22/24 07:40 Pulse Ox 95 02/22/24 07:50 FiO2 Intake & Output 02/21/24 02/22/24 02/22/24 18:59 06:59 18:59 Other: # Voids 5 2 # Bowel Movements 1 - Exam GENERAL EXAM: Alert, weak 63-year-old male, 5 L of O2 nasal cannula, mild respiratory distress HEAD: Normocephalic. EYES: Normal reaction of pupils, equal size. NOSE: Clear with pink turbinates. THROAT: No erythema or exudates. NECK: No masses, no JVD. CHEST: No chest wall deformity. LUNGS: Equal air entry with coarse rhonchi throughout. Diffuse rhonchi CVS: S1 and S2 normal with no audible murmur, regular rhythm. ABDOMEN: No hepatosplenomegaly, normal bowel sounds, no guarding or rigidity. SPINE: No scoliosis or deformity SKIN: No rashes CENTRAL NERVOUS SYSTEM: No focal deficits, tone is normal in all 4 extremities. EXTREMITIES: There is no peripheral edema. No clubbing, no cyanosis. Peripheral pulses are intact. - Labs CBC & Chem 7: 02/21/24 03:51 02/22/24 03:22 Labs: Abnormal Lab Results - Last 24 Hours (Table) 02/22/24 Range/Units 03:22 Sodium 133 L (135-145) mmol/L Glucose 127 H (70-110) mg/dL Calcium 8.3 L (8.7-10.3) mg/dL Microbiology - Last 24 Hours (Table) 02/18/24 15:35 Blood Culture - Preliminary Blood 02/18/24 15:52 Blood Culture - Preliminary Blood 02/18/24 22:17 Gram Stain - Final Sputum Sputum Culture - Final Assessment and Plan Plan: Acute hypoxemic respiratory failure, currently on 5 L of oxygen by nasal cannula Right upper completion lobectomy for non-small cell lung cancer with squamous cell type. Patient was discharged home on 02/10/2024. The patient is also status post wedge resection, right upper lobe solitary pulmonary nodule, which was positive for squamous cell carcinoma, performed on 12/27/2023, stage I bronchogenic carcinoma, squamous cell, T1b, N0 M0 Right lung cavity with an atelectatic/consolidated right middle lobe in addition to development of groundglass pulmonary filtrates bilaterally more so on the left upper lobe area. Leukocytosis secondary to above Hyponatremia, recovered Chronic and ongoing tobacco dependence of 48 years COPD Chronic back pain Chronic atrial fibrillation, rate is controlled and patient is currently on amiodarone 200 mg p.o. twice a day metoprolol 12.5 mg twice daily and the patient is on anticoagulation with Eliquis. Plan: The patient is currently on 5 L of O2 nasal cannula CAT scan of the chest was reviewed Patient is currently on IV Zosyn Awaiting the results of the bronchial cultures/aspirates The patient has a cavity in the right hemithorax in addition to an atelectatic right middle lobe, consider right middle lobe syndrome specially that there is considerable amount of narrowing and bronchomalacia of the right middle lobe bronchus. None elevated procalcitonin Stop Eliquis Continue bronchodilators with albuterol nebulized treatments 4 times a day and Symbicort as maintenance Encouraged use of incentive spirometer Will consider right middle lobe lobectomy, case was discussed with cardiothoracic surgery We will continue to follow and make further recommendations based on his clinical status
--- NOTE | 2024-02-22 20:21 | P.PCN ---
Date of Procedure: 02/22/24 Preoperative Diagnosis: Right middle lobe atelectasis/consolidation/pneumonia Postoperative Diagnosis: Right middle lobe syndrome Procedure(s) Performed: Flexible bronchoscopy, airway inspection, bronchoalveolar lavage of the right middle lobe Anesthesia: MAC Surgeon: Baljeet Smith Estimated Blood Loss (ml): 0 Condition: stable Disposition: floor Operative Findings: This procedure was done in the endoscopy suite. A consent was obtained. A timeout was done. The patient was placed on a simple full facemask at 10 L. After achieving adequate sedation, the flexor bronchoscope was easily passed through the left nostril and was advanced into the upper airways. Examination of the posterior pharynx, larynx, arytenoids, vallecula, epiglottis and vocal cords were all within normal limits. A total of 2 cc of 1% lidocaine was applied to the vocal cord and the following that the bronchoscope was advanced into the upper trachea and an airway inspection was done. The patient had copious amount of loose and brown 10 respiratory secretions scattered throughout the lung tovar bilaterally more so on the right. Therapeutic airway suctioning was done. Airway inspection was done. The entire trachea was patent and within normal limits. The right upper lobe stump was intact and within normal limits. Bronchus intermedius had respiratory secretions that were suctioned out. The right middle lobe orifice was quite narrowed and I was unable to inspect the right middle lobe bronchus with a conventional bronchoscope. The right lower lobe bronchus was patent and the various segments of the right lower lobe including the medial basilar, anterior, lateral, posterior and superior segments were patent. The bronchoscope was then moved to the left side and the left upper lobe bronchus and the left lobe bronchus and the various segments of the left were patent and within normal limits. There was respiratory secretions that were suctioned out. I exchanged the flexible bronchoscope with a small bronchoscope that had a smaller diameter. Utilizing a bronchoscope with a 5.5 mm outer diameter, I was able to go through the right middle lobe bronchus. The airway was quite tortuous and atelectatic and there was evidence of bronchomalacia. I was able to pass the bronchoscope and inspect the medial and the lateral segment of the right middle lobe bronchus. Obviously, there was copious respiratory secretions that were suctioned out. The segments were atelectatic. A bronchoalveolar lavage was done. A total of 40 cc of fluid was infused and 10 cc was aspirated and the aspirate was quite cloudy and brown looking. The procedure was completed. Therapeutic airway suctioning was done. The bronchoscope was removed Final impression Right middle lobe syndrome, atelectatic narrowed right middle lobe bronchus with evidence of bronchomalacia and anatomic distortion secondary to a previous right upper lobe resection. A right middle lobe pneumonia and is favored. Currently on IV Zosyn. Awaiting results of the bronchoalveolar lavage.
[2024-02-22] MEDS: guaiFENesin 600 MG TABLET.ER PO SCH (21:31)
[2024-02-23 04:55] LABS: Appearance,BF Turbid (Clear); RBC, Body Fluid 19000 /UL (0-2000)
--- NOTE | 2024-02-23 07:54 | P.PN ---
Subjective Progress Note Date: 02/23/24 Principal diagnosis: Recent right upper wedge resection/right upper lobectomy on February 09, 2024. 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 He also has a past medical history significant for paroxysmal atrial fibrillation on Eliquis for anticoagulation as an outpatient, COPD, obesity, tobacco dependence, quit smoking in December 2023, chronic back pain with chronic narcotic dependency as an outpatient, benign prostatic hypertrophy anxiety and depression. The patient was seen and examined in follow-up today February 23, 2024 at his bedside on the fourth floor medical surgical unit. He is currently sitting up to the bedside chair, is awake, alert, oriented x 3 and is in no acute apparent distress. He denies any complaints of pain at this time, he does report complaints of shortness of breath with activity and states he gets short winded easily with ambulating. The patient states that he feels improved today from yesterday, and he states that he still has a productive cough, but has calm down from yesterday. The patient underwent a bronchoscopy completed by Dr. Smith yesterday which revealed possible right middle lobe syndrome, atelectatic narrowing right middle lobe bronchus with evidence of bronchomalacia and anatomic distortion secondary to a previous right upper lobe resection. Right middle lobe pneumonia and is favored. Currently on IV Zosyn for antibiotic treatment. Tmax temperature in the last 24 hours is 98.4 F. Oxygen saturations are 98% on 5 L nasal cannula and he is achieving 1250 mL on his incentive spirometry with encouragement. Blood cultures and sputum culture showing no growth. Eliquis was discontinued yesterday and IV fluids have been discontinued. Laboratory results pending and chest x-ray results reviewed. Objective - Vital Signs Vital signs: Vital Signs Temp 98.2 F 02/23/24 00:49 Pulse 69 02/23/24 01:49 Resp 17 02/23/24 00:49 BP 97/62 02/23/24 00:49 Pulse Ox 98 02/23/24 00:49 FiO2 Intake & Output 02/22/24 02/23/24 02/23/24 18:59 06:59 18:59 Intake Total 300 Output Total 180 Balance 120 Weight 99.79 kg Intake: IV 300 Output: Urine 180 Other: Voiding Method Toilet Toilet Urinal # Voids 4 3 - Exam CONSTITUTIONAL: Appears comfortable, cooperative, no acute distress. RESPIRATORY: Lungs sounds with scattered rhonchi throughout, few expiratory wheezes, diminished to his bilateral bases right greater than left. Respirations symmetrical, nonlabored. Currently on 5 L nasal cannula with oxygen saturation 98%. Able to achieve 1250 mL on incentive spirometry. Strong productive cough. CARDIOVASCULAR: S1, S2 present. Regular rate and rhythm. Palpable peripheral pulses bilaterally. No edema present. No calf pain or tenderness noted. SCDs present. GASTROINTESTINAL: Abdomen soft, nontender, nondistended. Active bowel sounds present 4 quadrants. Tolerating diet. GENITOURINARY: Continues to void. INTEGUMENTARY: Skin is warm and dry with no clubbing or cyanosis is present. Right chest thoracic incisions well approximated and covered, no redness or drainage present. NEUROLOGIC: Cranial nerves II through XII intact. MUSKULOSKELETAL: Able to move all extremities, strength equal bilaterally, gait normal. PSYCHIATRIC: Alert and oriented to person place and time, appropriate affect, intact judgment and insight. - Allied health notes Allied health notes reviewed: nursing - Labs CBC & Chem 7: 02/21/24 03:51 02/22/24 03:22 Labs: Abnormal Lab Results - Last 24 Hours (Table) 02/21/24 02/22/24 02/22/24 Range/Units 11:14 03:22 11:25 Sodium 133 L (135-145) mmol/L Glucose 127 H (70-110) mg/dL Calcium 8.3 L (8.7-10.3) mg/dL Methylmalonic Acid 0.58 H (<0.40) umol/L Fluid Appearance Turbid A (Clear) Microbiology - Last 24 Hours (Table) 02/19/24 11:51 Legionella Culture - Preliminary Sputum - Imaging and Cardiology Chest x-ray: report reviewed, image reviewed Assessment and Plan Assessment: Acute hypoxic respiratory failure secondary to acute infection in the right middle lobe Right midlung consolidation, rule out right middle lobe syndrome with secondary pneumonia, status post bronchoscopy performed on 02/11/2024, refer to the full report, status post bronchoscopy on February 22, [address] Smith, showing possible right middle lobe syndrome, and atelectatic narrowed right middle lobe bronchus with evidence of bronchomalacia and anatomic distortion secondary to a previous right upper lobe resection. Leukocytosis secondary to above Hyponatremia Squamous cell carcinoma, status post completion right upper lobectomy History of atrial fibrillation, on Eliquis as an outpatient Chronic obstructive pulmonary disease Chronic back pain History of tobacco dependence, with recent smoking cessation in December 2023 Benign prostatic hypertrophy Obesity with a BMI of 31.6 kg/m Anxiety Depression Plan: Continue chest physical therapy, every 4 hours. Wean oxygen as tolerated. Encourage use of incentive spirometry 10 times every hour while awake. Bronchodilator management per pulmonary medicine. Continue to monitor daily chest x-rays. Continue to follow results of sputum culture. Antibiotic management per pulmonary/critical care medicine. Currently on Zosyn. Increase activity as tolerated. Out of bed for all meals. Physical therapy consulted. Medical management other comorbidities per primary care service. Continue Mucomyst and Mucinex. More recommendations to follow based on patient's clinical course. Time with Patient: Less than 30
--- NOTE | 2024-02-23 08:02 | XR ---
EXAMINATION TYPE: XR chest 1V portable DATE OF EXAM: 02/23/2024 7:00 AM COMPARISON: 02/22/2024 CLINICAL INDICATION: Male, 63 years old with history of Postop right upper lobectomy, TECHNIQUE: Single frontal view of the chest is obtained. FINDINGS: Status post right upper lobectomy change with focal lucency right upper lobe compatible wit h small pneumothorax. Right hilar and suprahilar mass remains unchanged. Small right-sided effusion. The left lung is clear. Cardiomediastinal silhouette is unremarkable. IMPRESSION: Essentially stable chest. [facility], , 02/23/2024 8:00 AM
[2024-02-23 10:29] LABS: Blood Urea Nitrogen 12.4 mg/dL (9.0-27.0); Carbon Dioxide 25.9 mmol/L (21.6-31.8); Chloride 98 mmol/L (96-109); Glucose 125 mg/dL (70-110); Magnesium 2.1 mg/dL (1.5-2.4); Potassium 4.3 mmol/L (3.5-5.5); Sodium 135 mmol/L (135-145)
[2024-02-23 10:30] LABS: Calcium 8.1 mg/dL (8.7-10.3)
[2024-02-23 10:48] LABS: Basophils # (A) 0.02 X 10*3/uL (0.00-0.10); Basophils % (A) 0.2 %; Eosinophils # (A) 0.04 X 10*3/uL (0.04-0.35); Eosinophils % (A) 0.3 %; HCT 28.4 % (39.6-50.0); Lymphocytes # (A) 1.13 X 10*3/uL (0.90-5.00); Lymphocytes % (A) 9.6 %; MCH 29.4 pg (27.0-32.0); MCHC 31.7 g/dL (32.0-37.0); MCV 92.8 FL (80.0-97.0); Mean Platelet Volume 8.9 FL (9.5-12.2); Monocytes # (A) 0.49 X 10*3/uL (0.20-1.00); Monocytes % (A) 4.2 %; NRBC Per 100 WBC 0 X 10*3/uL (0.00-0.01); Neutrophils # (A) 9.87 X 10*3/uL (1.80-7.70); Neutrophils % (A) 84.2 %; Platelet Count 640 X 10*3/uL (140-440); RBC 3.06 X 10*6/uL (4.40-5.60); WBC 11.72 X 10*3/uL (4.50-10.00)
--- NOTE | 2024-02-23 14:50 | P.PN ---
Subjective Progress Note Date: 02/23/24 This is a very pleasant 63-year-old male patient with a known history of chronic and ongoing tobacco dependence of 48 years, chronic obstructive pulmonary disease, chronic back pain, atrial fibrillation. He also has a history of a solitary right upper lobe pulmonary nodule that was positive for squamous cell carcinoma based on a previous wedge resection in December 2023. He was brought back into the hospital for a robotically assisted right upper lobe lobectomy on February 09, 2024. During that hospitalization he was found to have a right middle lobe collapse and had undergone bronchoscopy with BAL. No endobronchial lesions or mucous was identified. He was discharged home on February 13, 2024. He was seen in the emergency department on February 17, 2024 for increasing shortness of breath cough and congestion. He was given azithromycin and discharged to home. He returned to the emergency room again the following day February 18, 2024 with similar symptoms that seem to be worsening. He had a hard time sleeping and was having right sided chest pain. Increased mucus. Chest x-ray shows similar findings of a large predominant right perihilar opacity. Stable small right apical hydropneumothorax. Small increasing right pleural effusion. White count 16.6. Hemoglobin 10.7. Platelets 552. Sodium 127. Potassium 5.1. Bicarb 24. BUN 20. Creatinine 0.98. Glucose 104. Viral screen negative. He is seen today in consultation on the regular medical floor. He is currently sitting up in bed. Awake and alert in no acute distress. He is quite weak. He is maintaining O2 saturations in the low 90s on room air. 02/20/2024, the patient is being seen for a follow-up. Patient is post right upper lobectomy for non-small cell lung cancer. 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 The patient has a persistent atelectasis/pneumon ia of the right middle lobe. Currently, the patient is hospitalized for worsening shortness of breath. Procalcitonin level is 0.47. Electrolytes are all within normal range with a BUN of 15 and a creatinine of 0.9. The white cell count is at 15.4 with a hemoglobin of 10.4 and a platelet count of 406. The right upper lobe resection was done on 02/10/2024 and it is consistent with benign lung without any residual malignancy. The lymph nodes are also negative for malignancy. The patient is currently on IV Rocephin. The patient is also on Symbicort as maintenance 2 puffs twice a day and IV fluids with normal saline at rate of 75 cc an hour. He is receiving nebulized albuterol 4 times a day. He is oxygen requirements are at 6 L with a pulse ox of 99% On 02/21/2024, the patient is being seen for a follow-up. The patient is on 5 L of oxygen by nasal cannula and the patient is pulse oxing 91%. Continues to have a congested cough. The blood culture was negative. The sputum sample was negative. The patient's white cell count is at 14 with a hemoglobin 9.9 and a platelet count of 658. BUN is 15 with a creatinine of 0.8 and sodium levels at 134. Remains on Ventolin nebulized treatments, Symbicort maintenance and IV Rocephin. The plan is to repeat the patient's bronchoscopy in a.m. and to reevaluate the right middle lobe bronchus. The chest x-ray from today is essentially unchanged. There is a masslike opacity in the right hilum which is probably an atelectatic right middle lobe. On 02/22/2024, patient is being seen for a follow-up. Earlier this morning, the patient was having significant respiratory distress and cough and congestion. He has required higher oxygen flow at 5 L/min nasal cannula with a pulse ox of 95%. Based on that, a CAT scan of the chest was completed this morning without contrast and the CAT scan showed right upper lobectomy, a cavity was seen in the right suprahilar area with a atelectatic right middle lobe consistent with right middle lobe syndrome, /consolidation/groundglass changes and the patient also had some groundglass opacities in the left upper lobe. Airspace disease also seen in the right with an air-fluid level within the cavity. Small right-sided pleural effusion was noted based on those findings, a bronchoscopy was performed today and as expected, the patient had significant narrowing of the right middle lobe bronchus. There was evidence of bronchomalacia. I was able to pass the bronchoscope to the right middle lobe bronchus and visualize the right middle lobe and right lower lobe. Therapeutic airway suctioning was done. 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 Based on those findings, the patient was started on IV Zosyn and antibiotic modification was done. He seems to be much more comfortable post bronchoscopy. He has been placed on anticoagulation regarding paroxysmal atrial fibrillation. His current rhythm has remained sinus and the patient will be taken off the anticoagulation. The sodium levels at 133, BUN 13 with a creatinine 0.8. The white cell count from yesterday was at 14.4 with a hemoglobin 9.9. The procalcitonin level is at 0.47. On 02/23/2024, the patient is being seen for a follow-up. The patient is post bronchoscopy was done yesterday and please refer to the documented report. Repeat chest x-ray was also done today and the patient's findings are essentially stable. There is a right suprahilar opacity which remains esse ntially unchanged and area of atelectatic/infected right middle lobe. Meanwhile, the patient remains on IV Zosyn. The white cell count is down to 11.7. Hemoglobin is stable at 9.0 and the patient was taken off the anticoagulation. Electrolytes are stable. BUN is 12 with a creatinine of 0.8. Awaiting the results of the bronchial lavage. Oxygenation is also stable and the patient remains on 5 L of oxygen by nasal cannula with a pulse ox of 98%. He is sitting up to bedside chair. He is awake and alert. Denies having any pain. He does report some ongoing shortness of breath and a congested cough. He gets short of breath with activity. He is afebrile for now. Objective - Vital Signs Vital signs: Vital Signs Temp 97.8 F 02/23/24 13:37 Pulse 70 02/23/24 13:37 Resp 20 02/23/24 13:37 BP 104/62 02/23/24 13:37 Pulse Ox 98 02/23/24 13:37 FiO2 Intake & Output 02/22/24 02/23/24 02/23/24 18:59 06:59 18:59 Intake Total 300 Output Total 180 Balance 120 Weight 99.79 kg Intake: IV 300 Output: Urine 180 Other: Voiding Method Toilet Toilet Urinal # Voids 4 3 - Exam GENERAL EXAM: Alert, weak 63-year-old male, 5 L of O2 nasal cannula, mild respiratory distress HEAD: Normocephalic. EYES: Normal reaction of pupils, equal size. NOSE: Clear with pink turbinates. THROAT: No erythema or exudates. NECK: No masses, no JVD. CHEST: No chest wall deformity. LUNGS: Equal air entry with coarse rhonchi throughout. Diffuse rhonchi CVS: S1 and S2 normal with no audible murmur, regular rhythm. ABDOMEN: No hepatosplenomegaly, normal bowel sounds, no guarding or rigidity. SPINE: No scoliosis or deformity SKIN: No rashes CENTRAL NERVOUS SYSTEM: No focal deficits, tone is normal in all 4 extremities. EXTREMITIES: There is no peripheral edema. No clubbing, no cyanosis. Peripheral pulses are intact. - Labs CBC & Chem 7: 02/23/24 02:17 02/23/24 02:17 Labs: Abnormal Lab Results - Last 24 Hours (Table) 02/21/24 02/22/24 02/23/24 Range/Units 11:14 11:25 02:17 WBC 11.72 H (4.50-10.00) X 10*3/uL RBC 3.06 L (4.40-5.60) X 10*6/uL Hgb 9.0 L (13.0-17.0) g/dL Hct 28.4 L (39.6-50.0) % MCHC 31.7 L (32.0-37.0) g/dL Plt Count 640 H (140-440) X 10*3/uL MPV 8.9 L (9.5-12.2) FL Immature Gran # 0.17 H (0.00-0.04) X 10*3/uL Neutrophils # 9.87 H (1.80-7.70) X 10*3/uL Glucose (70-110) mg/dL Calcium (8.7-10.3) mg/dL Methylmalonic Acid 0.58 H (<0.40) umol/L Fluid Appearance Turbid A (Clear) 02/23/24 Range/Units 02:17 WBC (4.50-10.00) X 10*3/uL RBC (4.40-5.60) X 10*6/uL Hgb (13.0-17.0) g/dL Hct (39.6-50.0) % MCHC (32.0-37.0) g/dL Plt Count (140-440) X 10*3/uL MPV (9.5-12.2) FL Immature Gran # (0.00-0.04) X 10*3/uL Neutrophils # (1.80-7.70) X 10*3/uL Glucose 125 H (70-110) mg/dL Calcium 8.1 L (8.7-10.3) mg/dL Methylmalonic Acid (<0.40) umol/L Fluid Appearance (Clear) Microbiology - Last 24 Hours (Table) 02/22/24 11:25 Gram Stain - Preliminary Bronchoalviolar Lavage - Right 02/19/24 11:51 Legionella Culture - Preliminary Sputum Assessment and Plan Plan: Acute hypoxemic respiratory failure, currently on 5 L of oxygen by nasal cannula. Right upper completion lobectomy for non-small cell lung cancer with squamous cell type. Patient was discharged home on 02/10/2024. The patient is also status post wedge resection, right upper lobe solitary pulmonary nodule, which was positive for squamous cell carcinoma, performed on 12/27/2023, stage I bronchogenic carcinoma, squamous cell, T1b, N0 M0 Right lung cavity with an atelectatic/consolidated right middle lobe in addition to development of groundglass pulmonary filtrates bilaterally more so on the left upper lobe area. The chest x-ray findings are stable and the patient is post bronchoscopy and the bronchoalveolar lavage of the right middle lobe. Awaiting culture results. Remains on IV Zosyn. Leukocytosis secondary to above Hyponatremia, recovered Chronic and ongoing tobacco dependence of 48 years COPD Chronic back pain Chronic atrial fibrillation, rate is controlled and patient is currently on amiodarone 200 mg p.o. twice a day metoprolol 12.5 mg twice daily and the patient is on anticoagulation with Eliquis. Plan: The patient is currently on 5 L of O2 nasal cannula CAT scan of the chest was reviewed Patient is currently on IV Zosyn, will continue same antibiotic coverage Awaiting the results from the bronchioloalveolar lavage of the right middle lobe The patient has a cavity in the right hemithorax in addition to an atelectatic right middle lobe, consider right middle lobe syndrome specially that there is considerable amount of narrowing and bronchomalacia of the right middle lobe bronchus. None elevated procalcitonin Stop Eliquis Continue bronchodilators with albuterol nebulized treatments 4 times a day and Symbicort as maintenance Encouraged use of incentive spirometer Will consider right middle lobe lobectomy, case was discussed with cardiothoracic surgery We will continue to follow and make further recommendations based on his clinical status
--- NOTE | 2024-02-23 15:44 | P.PN ---
Subjective Progress Note Date: 02/23/24 Principal diagnosis: postop pneumothorax, lung cancer patient awake alert oriented 3 complains of chest pain dyspnea Objective - Vital Signs Vital signs: Vital Signs Temp 97.8 F 02/23/24 13:37 Pulse 70 02/23/24 13:37 Resp 20 02/23/24 13:37 BP 104/62 02/23/24 13:37 Pulse Ox 98 02/23/24 13:37 FiO2 Intake & Output 02/22/24 02/23/24 02/23/24 18:59 06:59 18:59 Intake Total 300 Output Total 180 Balance 120 Weight 99.79 kg Intake: IV 300 Output: Urine 180 Other: Voiding Method Toilet Toilet Urinal # Voids 4 3 - Exam General: [Patient awake, alert and oriented times 3. Patient in no acute distress.] HEENT: [PERRL. EOMI. No pharyngeal erythema or exudate.] Neck: [No adenopathy.] Cardiac: [Heart regular in rate and rhythm. No S3. No S4. No clicks, rubs. No murmur.] Lungs: rhonchi bilateral lung tovar Abdomen: [No mass. No organomegaly. Bowel sounds presnt and normoactive in all 4 quadrants.] Extremes: [No edema no cyanosis no claudication normal pulses] : normal male genitalia Musculoskeletal: [No joint erythema, edema or tenderness.] Skin: [No rash.] Neurologic: [No lateralizing deficits. CN II - XII grossly intact.] Lymphatic: [No adenopathy.] - Labs CBC & Chem 7: 02/23/24 02:17 02/23/24 02:17 Labs: Abnormal Lab Results - Last 24 Hours (Table) 02/21/24 02/22/24 02/23/24 Range/Units 11:14 11:25 02:17 WBC 11.72 H (4.50-10.00) X 10*3/uL RBC 3.06 L (4.40-5.60) X 10*6/uL Hgb 9.0 L (13.0-17.0) g/dL Hct 28.4 L (39.6-50.0) % MCHC 31.7 L (32.0-37.0) g/dL Plt Count 640 H (140-440) X 10*3/uL MPV 8.9 L (9.5-12.2) FL Immature Gran # 0.17 H (0.00-0.04) X 10*3/uL Neutrophils # 9.87 H (1.80-7.70) X 10*3/uL Glucose (70-110) mg/dL Calcium (8.7-10.3) mg/dL Methylmalonic Acid 0.58 H (<0.40) umol/L Fluid Appearance Turbid A (Clear) 02/23/24 Range/Units 02:17 WBC (4.50-10.00) X 10*3/uL RBC (4.40-5.60) X 10*6/uL Hgb (13.0-17.0) g/dL Hct (39.6-50.0) % MCHC (32.0-37.0) g/dL Plt Count (140-440) X 10*3/uL MPV (9.5-12.2) FL Immature Gran # (0.00-0.04) X 10*3/uL Neutrophils # (1.80-7.70) X 10*3/uL Glucose 125 H (70-110) mg/dL Calcium 8.1 L (8.7-10.3) mg/dL Methylmalonic Acid (<0.40) umol/L Fluid Appearance (Clear) Microbiology - Last 24 Hours (Table) 02/22/24 11:25 Gram Stain - Preliminary Bronchoalviolar Lavage - Right 02/19/24 11:51 Legionella Culture - Preliminary Sputum Assessment and Plan (1) Folic acid deficiency Current Visit: Yes Status: Acute Priority: Medium Code(s): E53.8 - DEFICIENCY OF OTHER SPECIFIED B GROUP VITAMINS SNOMED Code(s): 964091271 (2) Hyponatremia Current Visit: Yes Status: Acute Code(s): E87.1 - HYPO-OSMOLALITY AND HYPONATREMIA SNOMED Code(s): 25536271 (3) Hyponatremia Current Visit: Yes Status: Acute Code(s): E87.1 - HYPO-OSMOLALITY AND HYPONATREMIA SNOMED Code(s): 55787677 (4) Lung mass Current Visit: Yes Status: Acute Code(s): R91.8 - OTHER NONSPECIFIC ABNORMAL FINDING OF LUNG FIELD SNOMED Code(s): 646654415 (5) Normocytic anemia Current Visit: Yes Status: Acute Priority: Medium Code(s): D64.9 - ANEMIA, UNSPECIFIED SNOMED Code(s): 513720768 (6) Pneumonia Current Visit: Yes Status: Acute Priority: High Code(s): J18.9 - PNEUMO WILFRIDO, UNSPECIFIED ORGANISM SNOMED Code(s): 191610563 (7) Postoperative pneumonia Current Visit: Yes Status: Acute Code(s): J95.89 - OTH POSTPROC COMPLICATIONS AND DISORDERS OF RESP SYS, NEC; J18.9 - PNEUMONIA, UNSPECIFIED ORGANISM SNOMED Code(s): 082174651 (8) Acute anxiety Current Visit: No Status: Acute Code(s): F41.9 - ANXIETY DISORDER, UNSPECIFIED SNOMED Code(s): 18431571 Plan: continue IV antibiotic therapy Replace folic acid Continue to follow closely Time with Patient: Greater than 30
[2024-02-24] MEDS: HEPARIN SODIUM,PORCINE 5,000 UNIT/ML 1 ML VIAL SQ SCH (08:19)
--- NOTE | 2024-02-24 08:33 | P.PN ---
Subjective Progress Note Date: 02/24/24 Principal diagnosis: Recent right upper wedge resection/right upper lobectomy on February 09, 2024. 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 He also has a past medical history significant for paroxysmal atrial fibrillation on Eliquis for anticoagulation as an outpatient, COPD, obesity, tobacco dependence, quit smoking in December 2023, chronic back pain with chronic narcotic dependency as an outpatient, benign prostatic hypertrophy anxiety and depression. The patient was seen and examined in follow-up today February 24, 2024 at his bedside on the fourth floor medical surgical unit. He is sitting up to the bedside chair, is awake, alert, oriented x 3 and is in no acute apparent distress. Continues to complain of episodes of shortness of breath with activity, and is complaining of some back pain at this time which is chronic in nature. Currently rating his pain 6 out of 10 on the pain scale. The patient states he continues to have a productive cough, but has improved in the last 24 hours. He continues to cough brownish colored tenacious sputum. Oxygen saturations are 97% on 5 L nasal cannula and he is achieving 1250 to 1500 mL on his incentive spirometry with encouragement. He also continues to use his flutter valve. His oxygen was titrated down to 2.5 L this a.m. He has been afebrile in the last 24 hours, his WBC count continues to trend down and was 11.72 yesterday February 23, 2024. He remains on Zosyn for IV antibiotic coverage managed by Dr. Smith. Preliminary Gram stain from bronchial washing on February 21 shows many polymorphonuclear leukocytes, rare epithelial cells, many gram-positive bacilli, few gram-positive cocci and rare gram-negative bacilli. Blood culture final results showed no growth after 5 days. Chest x- ray results were reviewed. Objective - Vital Signs Vital signs: Vital Signs Temp 98.3 F 02/24/24 07:05 Pulse 73 02/24/24 07:05 Resp 18 02/24/24 07:05 BP 126/69 02/24/24 07:05 Pulse Ox 99 02/24/24 07:05 FiO2 Intake & Output 02/23/24 02/24/24 02/24/24 18:59 06:59 18:59 Intake Total 2230 Output Total 1825 400 Balance 405 -400 Intake: Oral 2230 Output: Urine 1825 400 Other: # Voids 3 - Exam CONSTITUTIONAL: Appears comfortable, cooperative, no acute distress. RESPIRATORY: Lungs sounds with few expiratory wheezes, diminished to his bilateral bases right greater than left. Respirations symmetrical, nonlabored. Currently on 5 L nasal cannula with oxygen saturation 97%. Able to achieve 125- 1500 mL on his incentive spirometry. Strong productive cough. CARDIOVASCULAR: S1, S2 present. Regular rate and rhythm. Palpable peripheral pulses bilaterally. No edema present. No calf pain or tenderness noted. SCDs present. GASTROINTESTINAL: Abdomen soft, nontender, nondistended. Active bowel sounds present 4 quadrants. Tolerating diet. GENITOURINARY: Continues to void. INTEGUMENTARY: Skin is warm and dry with no clubbing or cyanosis is present. Right chest thoracic incisions well approximated and covered, no redness or drainage present. NEUROLOGIC: Cranial nerves II through XII intact. MUSKULOSKELETAL: Able to move all extremities, strength equal bilaterally, gait normal. PSYCHIATRIC: Alert and oriented to person place and time, appropriate affect, intact judgment and insight. - Allied health notes Allied health notes reviewed: nursing - Labs CBC & Chem 7: 02/23/24 02:17 02/23/24 02:17 Labs: Abnormal Lab Results - Last 24 Hours (Table) 02/23/24 02/23/24 Range/Units 02:17 02:17 WBC 11.72 H (4.50-10.00) X 10*3/uL RBC 3.06 L (4.40-5.60) X 10*6/uL Hgb 9.0 L (13.0-17.0) g/dL Hct 28.4 L (39.6-50.0) % MCHC 31.7 L (32.0-37.0) g/dL Plt Count 640 H (140-440) X 10*3/uL MPV 8.9 L (9.5-12.2) FL Immature Gran # 0.17 H (0.00-0.04) X 10*3/uL Neutrophils # 9.87 H (1.80-7.70) X 10*3/uL Glucose 125 H (70-110) mg/dL Calcium 8.1 L (8.7-10.3) mg/dL Microbiology - Last 24 Hours (Table) 02/18/24 15:35 Blood Culture - Final Blood 02/18/24 15:52 Blood Culture - Final Blood 02/22/24 11:25 Gram Stain - Preliminary Bronchoalviolar Lavage - Right - Imaging and Cardiology Chest x-ray: report reviewed, image reviewed Assessment and Plan Assessment: Acute hypoxic respiratory failure secondary to acute infection in the right middle lobe Right midlung consolidation, rule out right middle lobe syndrome with secondary pneumonia, status post bronchoscopy performed on 02/11/2024, refer to the full report, status post bronchoscopy on February 22, [address] Smith, showing possible right middle lobe syndrome, and atelectatic narrowed right middle lobe bronchus with evidence of bronchomalacia and anatomic distortion secondary to a previous right upper lobe resection. Leukocytosis secondary to above Hyponatremia Squamous cell carcinoma, status post completion right upper lobectomy History of atrial fibrillation, on Eliquis as an outpatient Chronic obstructive pulmonary disease Chronic back pain History of tobacco dependence, with recent smoking cessation in December 2023 Benign prostatic hypertrophy Obesity with a BMI of 31.6 kg/m Anxiety Depression Plan: Continue chest physical therapy, every 4 hours. Amiodarone will be titrated down to 200 mg p.o. daily on February 26, 2024, co ntinue amiodarone for 7 days once titrated down to 200 mg p.o. daily, then discontinue Wean oxygen as tolerated. Encourage use of incentive spirometry 10 times every hour while awake. Bronchodilator management per pulmonary medicine. Continue to encourage use of flutter valve. Continue to monitor daily chest x-rays. Continue to follow results of bronchial washing culture results. Antibiotic ma nagement per pulmonary/critical care medicine. Currently on Zosyn. Increase activity as tolerated. Out of bed for all meals. Physical therapy following. Medical management other comorbidities per primary care service. Continue Mucomyst and Mucinex. Pain management per current as needed orders. Shower daily. More recommendations to follow based on patient's clinical course. Time with Patient: Less than 30
--- NOTE | 2024-02-24 08:48 | XR ---
EXAMINATION TYPE: XR chest 1V portable DATE OF EXAM: 02/24/2024 6:59 AM COMPARISON: 02/23/2024 CLINICAL INDICATION: Male, 63 years old with history of s/p right upper lobectomy, , FINDINGS: Heart normal size. Post surgical volume loss right hemithorax. Large masslike opacity right hilum red emonstrated. Diffuse interstitial groundglass opacity persists. Continued small right pleural effusio n. IMPRESSION: 1. Overall stable postsurgical changes right hemithorax with volume loss and a large masslike opacity of the right hilum. 2. Ongoing diffuse groundglass interstitial infiltrates and small right pleural effusion. [facility], , 02/24/2024 8:46 AM
--- NOTE | 2024-02-24 17:49 | P.PN ---
Subjective Progress Note Date: 02/24/24 This is a very pleasant 63-year-old male patient with a known history of chronic and ongoing tobacco dependence of 48 years, chronic obstructive pulmonary disease, chronic back pain, atrial fibrillation. He also has a history of a solitary right upper lobe pulmonary nodule that was positive for squamous cell carcinoma based on a previous wedge resection in December 2023. He was brought back into the hospital for a robotically assisted right upper lobe lobectomy on February 09, 2024. During that hospitalization he was found to have a right middle lobe collapse and had undergone bronchoscopy with BAL. No endobronchial lesions or mucous was identified. He was discharged home on February 13, 2024. He was seen in the emergency department on February 17, 2024 for increasing shortness of breath cough and congestion. He was given azithromycin and discharged to home. He returned to the emergency room again the following day February 18, 2024 with similar symptoms that seem to be worsening. He had a hard time sleeping and was having right sided chest pain. Increased mucus. Chest x-ray shows similar findings of a large predominant right perihilar opacity. Stable small right apical hydropneumothorax. Small increasing right pleural effusion. White count 16.6. Hemoglobin 10.7. Platelets 552. Sodium 127. Potassium 5.1. Bicarb 24. BUN 20. Creatinine 0.98. Glucose 104. Viral screen negative. He is seen today in consultation on the regular medical floor. He is currently sitting up in bed. Awake and alert in no acute distress. He is quite weak. He is maintaining O2 saturations in the low 90s on room air. 02/20/2024, the patient is being seen for a follow-up. Patient is post right upper lobectomy for non-small cell lung cancer. 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 The patient has a persistent atelectasis/pneumon ia of the right middle lobe. Currently, the patient is hospitalized for worsening shortness of breath. Procalcitonin level is 0.47. Electrolytes are all within normal range with a BUN of 15 and a creatinine of 0.9. The white cell count is at 15.4 with a hemoglobin of 10.4 and a platelet count of 406. The right upper lobe resection was done on 02/10/2024 and it is consistent with benign lung without any residual malignancy. The lymph nodes are also negative for malignancy. The patient is currently on IV Rocephin. The patient is also on Symbicort as maintenance 2 puffs twice a day and IV fluids with normal saline at rate of 75 cc an hour. He is receiving nebulized albuterol 4 times a day. He is oxygen requirements are at 6 L with a pulse ox of 99% On 02/21/2024, the patient is being seen for a follow-up. The patient is on 5 L of oxygen by nasal cannula and the patient is pulse oxing 91%. Continues to have a congested cough. The blood culture was negative. The sputum sample was negative. The patient's white cell count is at 14 with a hemoglobin 9.9 and a platelet count of 658. BUN is 15 with a creatinine of 0.8 and sodium levels at 134. Remains on Ventolin nebulized treatments, Symbicort maintenance and IV Rocephin. The plan is to repeat the patient's bronchoscopy in a.m. and to reevaluate the right middle lobe bronchus. The chest x-ray from today is essentially unchanged. There is a masslike opacity in the right hilum which is probably an atelectatic right middle lobe. On 02/22/2024, patient is being seen for a follow-up. Earlier this morning, the patient was having significant respiratory distress and cough and congestion. He has required higher oxygen flow at 5 L/min nasal cannula with a pulse ox of 95%. Based on that, a CAT scan of the chest was completed this morning without contrast and the CAT scan showed right upper lobectomy, a cavity was seen in the right suprahilar area with a atelectatic right middle lobe consistent with right middle lobe syndrome, /consolidation/groundglass changes and the patient also had some groundglass opacities in the left upper lobe. Airspace disease also seen in the right with an air-fluid level within the cavity. Small right-sided pleural effusion was noted based on those findings, a bronchoscopy was performed today and as expected, the patient had significant narrowing of the right middle lobe bronchus. There was evidence of bronchomalacia. I was able to pass the bronchoscope to the right middle lobe bronchus and visualize the right middle lobe and right lower lobe. Therapeutic airway suctioning was done. 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 Based on those findings, the patient was started on IV Zosyn and antibiotic modification was done. He seems to be much more comfortable post bronchoscopy. He has been placed on anticoagulation regarding paroxysmal atrial fibrillation. His current rhythm has remained sinus and the patient will be taken off the anticoagulation. The sodium levels at 133, BUN 13 with a creatinine 0.8. The white cell count from yesterday was at 14.4 with a hemoglobin 9.9. The procalcitonin level is at 0.47. On 02/23/2024, the patient is being seen for a follow-up. The patient is post bronchoscopy was done yesterday and please refer to the documented report. Repeat chest x-ray was also done today and the patient's findings are essentially stable. There is a right suprahilar opacity which remains esse ntially unchanged and area of atelectatic/infected right middle lobe. Meanwhile, the patient remains on IV Zosyn. The white cell count is down to 11.7. Hemoglobin is stable at 9.0 and the patient was taken off the anticoagulation. Electrolytes are stable. BUN is 12 with a creatinine of 0.8. Awaiting the results of the bronchial lavage. Oxygenation is also stable and the patient remains on 5 L of oxygen by nasal cannula with a pulse ox of 98%. He is sitting up to bedside chair. He is awake and alert. Denies having any pain. He does report some ongoing shortness of breath and a congested cough. He gets short of breath with activity. He is afebrile for now. On today's evaluation of 02/24/2024, the patient is feeling better. His oxygenation is improved and the patient is currently down to 3 L of oxygen nasal cannula with pulse ox of 94%. A follow-up chest x-ray from today shows essentially normal interval change and there is volume loss and right midlung atelectasis/consolidation in addition to a right apical pneumothorax. There is ongoing diffuse groundglass pulmonary filtrates and small right-sided pleural effusion. Bronchoscopy and bronchial lavage was done. Cultures are still pending for now. There is polymicrobial on the Gram stain including few gram-positive cocci and rare gram-negative bacilli. The patient remains on IV Zosyn. The patient remains on Symbicort and DuoNeb the regiment [id number]. The patient is on Symbicort. No issues with pain. Cough and congestion has subsided. Cardiac rhythm is a sinus. The white cell count is 11 with a hemoglobin of 9 and a platelet count of 640. Electrolytes are all within normal limits. BUN is 12 with a creatinine 0.8. Objective - Vital Signs Vital signs: Vital Signs Temp 98.3 F 02/24/24 07:05 Pulse 78 02/24/24 08:39 Resp 18 02/24/24 07:05 BP 126/69 02/24/24 07:05 Pulse Ox 97 02/24/24 08:22 FiO2 Intake & Output 02/23/24 02/24/24 02/24/24 18:59 06:59 18:59 Intake Total 2230 120 Output Total 1825 700 Balance 405 -580 Weight 99.79 kg Intake: Oral 2230 120 Output: Urine 1825 700 Other: # Voids 3 - Exam GENERAL EXAM: Alert, weak 63-year-old male, 3 L of O2 nasal cannula, no significant respiratory distress at rest HEAD: Normocephalic. EYES: Normal reaction of pupils, equal size. NOSE: Clear with pink turbinates. THROAT: No erythema or exudates. NECK: No masses, no JVD. CHEST: No chest wall deformity. LUNGS: Equal air entry with coarse rhonchi throughout. Diffuse rhonchi CVS: S1 and S2 normal with no audible murmur, regular rhythm. ABDOMEN: No hepatosplenomegaly, normal bowel sounds, no guarding or rigidity. SPINE: No scoliosis or deformity SKIN: No rashes CENTRAL NERVOUS SYSTEM: No focal deficits, tone is normal in all 4 extremities. EXTREMITIES: There is no peripheral edema. No clubbing, no cyanosis. Peripheral pulses are intact. - Labs CBC & Chem 7: 02/23/24 02:17 02/23/24 02:17 Labs: Microbiology - Last 24 Hours (Table) 02/22/24 11:25 Gram Stain - Preliminary Bronchoalviolar Lavage - Right Bronchial Washings Culture - Preliminary 02/18/24 15:35 Blood Culture - Final Blood 02/18/24 15:52 Blood Culture - Final Blood Assessment and Plan Plan: Acute hypoxemic respiratory failure, currently on 3 L of oxygen by nasal cannula. Right upper completion lobectomy for non-small cell lung cancer with squamous cell type. Patient was discharged home on 02/10/2024. The patient is also status post wedge resection, right upper lobe solitary pulmonary nodule, which was positive for squamous cell carcinoma, performed on 12/27/2023, stage I bronchogenic carcinoma, squamous cell, T1b, N0 M0 Right lung cavity with an atelectatic/consolidated right middle lobe in addition to development of groundglass pulmonary filtrates bilaterally more so on the left upper lobe area. The chest x-ray findings are stable and the patient is post bronchoscopy and the bronchoalveolar lavage of the right middle lobe. Awaiting culture results. Remains on IV Zosyn. Follow-up chest x-ray is essentially unchanged. The patient has a lot of groundglass changes bilaterally including the left upper lobe. Pneumonia is suspected. Awaiting the results of the bronchoalveolar lavage. Leukocytosis secondary to above Hyponatremia, recovered Chronic and ongoing tobacco dependence of 48 years COPD Chronic back pain Chronic atrial fibrillation, rate is controlled and patient is currently on amiodarone 200 mg p.o. twice a day metoprolol 12.5 mg twice daily and the patient is on anticoagulation with Eliquis. Plan: The patient is currently on 3 L of O2 nasal cannula CAT scan of the chest was reviewed Patient is currently on IV Zosyn, will continue same antibiotic coverage Awaiting the results from the bronchioloalveolar lavage of the right middle lobe Follow-up chest x-ray from today was noted The patient has a cavity in the right hemithorax in addition to an atelectatic right middle lobe, consider right middle lobe syndrome specially that there is considerable amount of narrowing and bronchomalacia of the right middle lobe bronchus. None elevated procalcitonin Continue bronchodilators with albuterol nebulized treatments 4 times a day and Symbicort as maintenance Encouraged use of incentive spirometer Will consider right middle lobe lobectomy, case was discussed with cardiothoracic surgery We will continue to follow and make further recommendations based on his clinical status
--- NOTE | 2024-02-24 17:51 | P.PN ---
Subjective Progress Note Date: 02/24/24 Principal diagnosis: postop pneumothorax, lung cancer patient awake alert oriented 3 complains of chest pain dyspnea, status post lung resection Objective - Vital Signs Vital signs: Vital Signs Temp 98.9 F 02/24/24 14:25 Pulse 74 02/24/24 16:05 Resp 18 02/24/24 14:25 BP 106/57 02/24/24 14:25 Pulse Ox 94 L 02/24/24 14:25 FiO2 Intake & Output 02/23/24 02/24/24 02/24/24 18:59 06:59 18:59 Intake Total 2230 240 Output Total 1825 700 Balance 405 -460 Weight 99.79 kg Intake: Oral 2230 240 Output: Urine 1825 700 Other: # Voids 3 - Exam General: [Patient awake, alert and oriented times 3. Patient in no acute distress.] HEENT: [PERRL. EOMI. No pharyngeal erythema or exudate.] Neck: [No adenopathy.] Cardiac: [Heart regular in rate and rhythm. No S3. No S4. No clicks, rubs. No murmur.] Lungs: rhonchi bilateral lung tovar Abdomen: [No mass. No organomegaly. Bowel sounds presnt and normoactive in all 4 quadrants.] Extremes: [No edema no cyanosis no claudication normal pulses] : normal male genitalia Musculoskeletal: [No joint erythema, edema or tenderness.] Skin: [No rash.] Neurologic: [No lateralizing deficits. CN II - XII grossly intact.] Lymphatic: [No adenopathy.] - Labs CBC & Chem 7: 02/23/24 02:17 02/23/24 02:17 Labs: Microbiology - Last 24 Hours (Table) 02/22/24 11:25 Gram Stain - Preliminary Bronchoalviolar Lavage - Right Bronchial Washings Culture - Preliminary 02/18/24 15:35 Blood Culture - Final Blood 02/18/24 15:52 Blood Culture - Final Blood Assessment and Plan (1) Folic acid deficiency Current Visit: Yes Status: Acute Priority: Medium Code(s): E53.8 - DEFICIENCY OF OTHER SPECIFIED B GROUP VITAMINS SNOMED Code(s): 480854355 (2) Hyponatremia Current Visit: Yes Status: Acute Code(s): E87.1 - HYPO-OSMOLALITY AND HYPONATREMIA SNOMED Code(s): 94889800 (3) Hyponatremia Current Visit: Yes Status: Acute Code(s): E87.1 - HYPO-OSMOLALITY AND HYPONATREMIA SNOMED Code(s): 06322602 (4) Lung mass Current Visit: Yes Status: Acute Code(s): R91.8 - OTHER NONSPECIFIC ABNORMAL FINDING OF LUNG FIELD SNOMED Code(s): 758334354 (5) Normocytic anemia Current Visit: Yes Status: Acute Priority: Medium Code(s): D64.9 - ANEMIA, UNSPECIFIED SNOMED Code(s): 166337766 (6) Pneumonia Current Visit: Yes Status: Acute Priority: High Code(s): J18.9 - PNEUMONIA, UNSPECIFIED ORGANISM SNOMED Code(s): 311340129 (7) Postoperative pneumonia Current Visit: Yes Status: Acute Code(s): J95.89 - OTH POSTPROC COMPLICATIONS AND DISORDERS OF RESP SYS, NEC; J18.9 - PNEUMONIA, UNSPECIFIED ORGANISM SNOMED Code(s): 302535779 (8) Acute anxiety Current Visit: No Status: Acute Code(s): F41.9 - ANXIETY DISORDER, UNSPECIFIED SNOMED Code(s): 17487857
--- NOTE | 2024-02-25 07:40 | XR ---
2 view chest HISTORY: Postop right upper lobe lobectomy. COMPARISON: 02/24/2024. TECHNIQUE: PA and lateral views of the chest were obtained. FINDINGS: There is no change in the small right effusion enlarged right perihilar masslike opacity. There is no change in diffuse interstitial process involving both lungs. There is a new rounded opacity in the l eft lung base raising the question of developing airspace process such as pneumonia. The heart size is normal. The osseous structures are intact. IMPRESSION: 1. No interval change in the small right pleural effusion and large perihilar masslike opacity. 2. No change in diffuse interstitial process. 3. Questionable developing focal left lower lobe pneumonia. [facility], , 02/25/2024 7:38 AM
--- NOTE | 2024-02-25 08:17 | P.PN ---
Subjective Progress Note Date: 02/25/24 Principal diagnosis: Recent right upper wedge resection/right upper lobectomy on February 09, 2024. 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 He also has a past medical history significant for paroxysmal atrial fibrillation on Eliquis for anticoagulation as an outpatient, COPD, obesity, tobacco dependence, quit smoking in December 2023, chronic back pain with chronic narcotic dependency as an outpatient, benign prostatic hypertrophy anxiety and depression. The patient was seen and examined in follow-up today February 25, 2024 at his bedside on the fourth floor medical surgical unit. He is currently sitting up to the bedside chair, his grandson is at his bedside visiting. The patient is awake, alert, oriented x 3 and is in no acute apparent distress. He denies any complaints of shortness of breath with sitting up this morning, although remains complaining of some shortness of breath with activity. Denies any complaints of pain at this time. Oxygen saturations are 97% on 3 L nasal cannula and he is achieving 1500 mL on his incentive spirometry. The patient continues to use his flutter valve as well. The patient reports he had a shower yesterday and feels like he is feeling better today. He has been afebrile in the last 24 hours, remains on Zosyn for antibiotic coverage. Bronchial washings culture shows few normal respiratory amisha. Legionella culture shows no Legionella isolated. Chest x-ray results reviewed. Objective - Vital Signs Vital signs: Vital Signs Temp 98.9 F 02/25/24 01:05 Pulse 68 02/25/24 01:05 Resp 18 02/25/24 01:05 BP 98/58 02/25/24 01:05 Pulse Ox 95 02/25/24 01:05 FiO2 Intake & Output 02/24/24 02/25/24 02/25/24 18:59 06:59 18:59 Intake Total 240 Output Total 1100 450 Balance -860 -450 Weight 99.79 kg Intake: Oral 240 Output: Urine 1100 450 Other: Voiding Method Bedpan # Voids 2 - Exam CONSTITUTIONAL: Appears comfortable, cooperative, no acute distress. RESPIRATORY: Lungs sounds essentially clear throughout, diminished to his bilateral bases right greater than left. Respirations symmetrical, nonlabored. Currently on 3 L nasal cannula with oxygen saturation 97%. Able to achieve 1500 mL on his incentive spirometry. Continues to use his flutter valve. Strong productive cough. CARDIOVASCULAR: S1, S2 present. Regular rate and rhythm. Palpable peripheral pulses bilaterally. No edema present. No calf pain or tenderness noted. SCDs present. GASTROINTESTINAL: Abdomen soft, nontender, nondistended. Active bowel sounds present 4 quadrants. Tolerating diet. GENITOURINARY: Continues to void. INTEGUMENTARY: Skin is warm and dry with no clubbing or cyanosis is present. Right chest thoracic incisions well approximated and covered, no redness or drainage present. NEUROLOGIC: Cranial nerves II through XII intact. MUSKULOSKELETAL: Able to move all extremities, strength equal bilaterally, gait normal. PSYCHIATRIC: Alert and oriented to person place and time, appropriate affect, intact judgment and insight. - Allied health notes Allied health notes reviewed: nursing - Labs CBC & Chem 7: 02/23/24 02:17 02/23/24 02:17 Labs: Microbiology - Last 24 Hours (Table) 02/22/24 11:25 Gram Stain - Preliminary Bronchoalviolar Lavage - Right Bronchial Washings Culture - Preliminary - Imaging and Cardiology Chest x-ray: report reviewed, image reviewed Assessment and Plan Assessment: Acute hypoxic respiratory failure secondary to acute infection in the right middle lobe Right midlung consolidation, rule out right middle lobe syndrome with secondary pneumonia, status post bronchoscopy performed on 02/11/2024, refer to the full report, status post bronchoscopy on February 22, [address] Smith, showing possible right middle lobe syndrome, and atelectatic narrowed right middle lobe bronchus with evidence of bronchomalacia and anatomic distortion secondary to a previous right upper lobe resection. Leukocytosis secondary to above Hyponatremia Squamous cell carcinoma, status post completion right upper lobectomy History of atrial fibrillation, on Eliquis as an outpatient Chronic obstructive pulmonary disease Chronic back pain History of tobacco dependence, with recent smoking cessation in December 2023 Benign prostatic hypertrophy Obesity with a BMI of 31.6 kg/m Anxiety Depression Plan: Continue chest physical therapy, every 4 hours. Amiodarone will be titrated down to 200 mg p.o. daily on February 26, 2024, continue amiodarone for 7 days once titrated down to 200 mg p.o. daily, then discontinue Wean oxygen as tolerated, oxygen titrated down to 2 L nasal cannula. Encourage use of incentive spirometry 10 times every hour while awake. Bronchodilator management per pulmonary medicine. Continue to encourage use of flutter valve. Continue to monitor daily chest x-rays. Continue to follow results of bronchial washing culture results. Antibiotic management per pulmonary/critical care medicine. Currently on Zosyn. Increase activity as tolerated. Out of bed for all meals. Physical therapy following. Medical management other comorbidities per primary care service. Continue Mucomyst and Mucinex. Pain management per current as needed orders. Shower daily. More recommendations to follow based on patient's clinical course. Time with Patient: Less than 30
[2024-02-25 09:35] LABS: Basophils # (A) 0.03 X 10*3/uL (0.00-0.10); Basophils % (A) 0.4 %; Eosinophils # (A) 0.06 X 10*3/uL (0.04-0.35); Eosinophils % (A) 0.8 %; HCT 28.4 % (39.6-50.0); Lymphocytes # (A) 1.06 X 10*3/uL (0.90-5.00); Lymphocytes % (A) 13.5 %; MCH 28.7 pg (27.0-32.0); MCHC 31.7 g/dL (32.0-37.0); MCV 90.4 FL (80.0-97.0); Mean Platelet Volume 8.9 FL (9.5-12.2); Monocytes % (A) 6.4 %; NRBC Per 100 WBC 0 X 10*3/uL (0.00-0.01); Neutrophils # (A) 6.03 X 10*3/uL (1.80-7.70); Neutrophils % (A) 76.5 %; Platelet Count 710 X 10*3/uL (140-440); RBC 3.14 X 10*6/uL (4.40-5.60); RDW 13.7 % (11.5-14.5); WBC 7.87 X 10*3/uL (4.50-10.00)
[2024-02-25 09:41] LABS: ALT 32 U/L (10-49); AST 26 U/L (14-35); Albumin/Globulin Ratio 1.03 Ratio (1.60-3.17); Alkaline Phosphatase 93 U/L (41-126); BUN/Creat Ratio 9.78 Ratio (12.00-20.00); Blood Urea Nitrogen 8.8 mg/dL (9.0-27.0); Calcium 8.4 mg/dL (8.7-10.3); Carbon Dioxide 27.4 mmol/L (21.6-31.8); Chloride 98 mmol/L (96-109); Globulin 2.9 g/dL (1.6-3.3); Glucose 104 mg/dL (70-110); Potassium 4.3 mmol/L (3.5-5.5); Sodium 136 mmol/L (135-145); Total Bilirubin 0.3 mg/dL (0.3-1.2); Total Protein 5.9 g/dL (6.2-8.2)
--- NOTE | 2024-02-25 15:12 | P.PN ---
Subjective Progress Note Date: 02/25/24 This is a very pleasant 63-year-old male patient with a known history of chronic and ongoing tobacco dependence of 48 years, chronic obstructive pulmonary disease, chronic back pain, atrial fibrillation. He also has a history of a solitary right upper lobe pulmonary nodule that was positive for squamous cell carcinoma based on a previous wedge resection in December 2023. He was brought back into the hospital for a robotically assisted right upper lobe lobectomy on February 09, 2024. During that hospitalization he was found to have a right middle lobe collapse and had undergone bronchoscopy with BAL. No endobronchial lesions or mucous was identified. He was discharged home on February 13, 2024. He was seen in the emergency department on February 17, 2024 for increasing shortness of breath cough and congestion. He was given azithromycin and discharged to home. He returned to the emergency room again the following day February 18, 2024 with similar symptoms that seem to be worsening. He had a hard time sleeping and was having right sided chest pain. Increased mucus. Chest x-ray shows similar findings of a large predominant right perihilar opacity. Stable small right apical hydropneumothorax. Small increasing right pleural effusion. White count 16.6. Hemoglobin 10.7. Platelets 552. Sodium 127. Potassium 5.1. Bicarb 24. BUN 20. Creatinine 0.98. Glucose 104. Viral screen negative. He is seen today in consultation on the regular medical floor. He is currently sitting up in bed. Awake and alert in no acute distress. He is quite weak. He is maintaining O2 saturations in the low 90s on room air. 02/20/2024, the patient is being seen for a follow-up. Patient is post right upper lobectomy for non-small cell lung cancer. 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 The patient has a persistent atelectasis/pneumon ia of the right middle lobe. Currently, the patient is hospitalized for worsening shortness of breath. Procalcitonin level is 0.47. Electrolytes are all within normal range with a BUN of 15 and a creatinine of 0.9. The white cell count is at 15.4 with a hemoglobin of 10.4 and a platelet count of 406. The right upper lobe resection was done on 02/10/2024 and it is consistent with benign lung without any residual malignancy. The lymph nodes are also negative for malignancy. The patient is currently on IV Rocephin. The patient is also on Symbicort as maintenance 2 puffs twice a day and IV fluids with normal saline at rate of 75 cc an hour. He is receiving nebulized albuterol 4 times a day. He is oxygen requirements are at 6 L with a pulse ox of 99% On 02/21/2024, the patient is being seen for a follow-up. The patient is on 5 L of oxygen by nasal cannula and the patient is pulse oxing 91%. Continues to have a congested cough. The blood culture was negative. The sputum sample was negative. The patient's white cell count is at 14 with a hemoglobin 9.9 and a platelet count of 658. BUN is 15 with a creatinine of 0.8 and sodium levels at 134. Remains on Ventolin nebulized treatments, Symbicort maintenance and IV Rocephin. The plan is to repeat the patient's bronchoscopy in a.m. and to reevaluate the right middle lobe bronchus. The chest x-ray from today is essentially unchanged. There is a masslike opacity in the right hilum which is probably an atelectatic right middle lobe. On 02/22/2024, patient is being seen for a follow-up. Earlier this morning, the patient was having significant respiratory distress and cough and congestion. He has required higher oxygen flow at 5 L/min nasal cannula with a pulse ox of 95%. Based on that, a CAT scan of the chest was completed this morning without contrast and the CAT scan showed right upper lobectomy, a cavity was seen in the right suprahilar area with a atelectatic right middle lobe consistent with right middle lobe syndrome, /consolidation/groundglass changes and the patient also had some groundglass opacities in the left upper lobe. Airspace disease also seen in the right with an air-fluid level within the cavity. Small right-sided pleural effusion was noted based on those findings, a bronchoscopy was performed today and as expected, the patient had significant narrowing of the right middle lobe bronchus. There was evidence of bronchomalacia. I was able to pass the bronchoscope to the right middle lobe bronchus and visualize the right middle lobe and right lower lobe. Therapeutic airway suctioning was done. 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 Based on those findings, the patient was started on IV Zosyn and antibiotic modification was done. He seems to be much more comfortable post bronchoscopy. He has been placed on anticoagulation regarding paroxysmal atrial fibrillation. His current rhythm has remained sinus and the patient will be taken off the anticoagulation. The sodium levels at 133, BUN 13 with a creatinine 0.8. The white cell count from yesterday was at 14.4 with a hemoglobin 9.9. The procalcitonin level is at 0.47. On 02/23/2024, the patient is being seen for a follow-up. The patient is post bronchoscopy was done yesterday and please refer to the documented report. Repeat chest x-ray was also done today and the patient's findings are essentially stable. There is a right suprahilar opacity which remains esse ntially unchanged and area of atelectatic/infected right middle lobe. Meanwhile, the patient remains on IV Zosyn. The white cell count is down to 11.7. Hemoglobin is stable at 9.0 and the patient was taken off the anticoagulation. Electrolytes are stable. BUN is 12 with a creatinine of 0.8. Awaiting the results of the bronchial lavage. Oxygenation is also stable and the patient remains on 5 L of oxygen by nasal cannula with a pulse ox of 98%. He is sitting up to bedside chair. He is awake and alert. Denies having any pain. He does report some ongoing shortness of breath and a congested cough. He gets short of breath with activity. He is afebrile for now. On today's evaluation of 02/24/2024, the patient is feeling better. His oxygenation is improved and the patient is currently down to 3 L of oxygen nasal cannula with pulse ox of 94%. A follow-up chest x-ray from today shows essentially normal interval change and there is volume loss and right midlung atelectasis/consolidation in addition to a right apical pneumothorax. There is ongoing diffuse groundglass pulmonary filtrates and small right-sided pleural effusion. Bronchoscopy and bronchial lavage was done. Cultures are still pending for now. There is polymicrobial on the Gram stain including few gram-positive cocci and rare gram-negative bacilli. The patient remains on IV Zosyn. The patient remains on Symbicort and DuoNeb the regiment [id number]. The patient is on Symbicort. No issues with pain. Cough and congestion has subsided. Cardiac rhythm is a sinus. The white cell count is 11 with a hemoglobin of 9 and a platelet count of 640. Electrolytes are all within normal limits. BUN is 12 with a creatinine 0.8. On 02/25/2024, the patient is feeling better. Less short of breath. Less b ronchospastic and wheezy. He has been weaned down to 2 L of oxygen by nasal cannula. Bronchoscopy endobronchial lavage is not yielded any microbial growth. The patient has responded nicely to IV Zosyn. DuoNeb nebulized treatments [id number]. Cough and congestion has subsided significantly. Repeat chest x-ray was done today and essentially there is no significant interval change. Small right-sided pleural effusion is seen. Objective - Vital Signs Vital signs: Vital Signs Temp 98.3 F 02/25/24 07:00 Pulse 78 02/25/24 09:17 Resp 19 02/25/24 07:00 BP 104/57 02/25/24 07:00 Pulse Ox 95 02/25/24 09:05 FiO2 Intake & Output 02/24/24 02/25/24 02/25/24 18:59 06:59 18:59 Intake Total 240 Output Total 1100 450 Balance -860 -450 Weight 99.79 kg Intake: Oral 240 Output: Urine 1100 450 Other: Voiding Method Bedpan # Voids 2 - Exam GENERAL EXAM: Alert, weak 63-year-old male, 3 L of O2 nasal cannula, no significant respiratory distress at rest HEAD: Normocephalic. EYES: Normal reaction of pupils, equal size. NOSE: Clear with pink turbinates. THROAT: No erythema or exudates. NECK: No masses, no JVD. CHEST: No chest wall deformity. LUNGS: Equal air entry with coarse rhonchi throughout. Diffuse rhonchi CVS: S1 and S2 normal with no audible murmur, regular rhythm. ABDOMEN: No hepatosplenomegaly, normal bowel sounds, no guarding or rigidity. SPINE: No scoliosis or deformity SKIN: No rashes CENTRAL NERVOUS SYSTEM: No focal deficits, tone is normal in all 4 extremities. EXTREMITIES: There is no peripheral edema. No clubbing, no cyanosis. Peripheral pulses are intact. - Labs CBC & Chem 7: 02/25/24 02:51 02/25/24 02:51 Labs: Abnormal Lab Results - Last 24 Hours (Table) 02/25/24 02/25/24 Range/Units 02:51 02:51 RBC 3.14 L (4.40-5.60) X 10*6/uL Hgb 9.0 L (13.0-17.0) g/dL Hct 28.4 L (39.6-50.0) % MCHC 31.7 L (32.0-37.0) g/dL Plt Count 710 H (140-440) X 10*3/uL MPV 8.9 L (9.5-12.2) FL Immature Gran # 0.19 H (0.00-0.04) X 10*3/uL BUN 8.8 L (9.0-27.0) mg/dL BUN/Creatinine Ratio 9.78 L (12.00-20.00) Ratio Calcium 8.4 L (8.7-10.3) mg/dL Total Protein 5.9 L (6.2-8.2) g/dL Albumin 3.0 L (3.8-4.9) g/dL Albumin/Globulin Ratio 1.03 L (1.60-3.17) Ratio Microbiology - Last 24 Hours (Table) 02/22/24 11:25 Gram Stain - Final Bronchoalviolar Lavage - Right Bronchial Washings Culture - Final Assessment and Plan Plan: Acute hypoxemic respiratory failure, currently on 2 L of oxygen by nasal cannula. Right upper completion lobectomy for non-small cell lung cancer with squamous cell type. Patient was discharged home on 02/10/2024. The patient is also sta tus post wedge resection, right upper lobe solitary pulmonary nodule, which was positive for squamous cell carcinoma, performed on 12/27/2023, stage I bronchogenic carcinoma, squamous cell, T1b, N0 M0 Right lung cavity with an atelectatic/consolidated right middle lobe in addition to development of groundglass pulmonary filtrates bilaterally more so on the left upper lobe area. The chest x-ray findings are stable and the patient is post bronchoscopy and the bronchoalveolar lavage of the right middle lobe. Awaiting culture results. Remains on IV Zosyn. Follow-up chest x-ray is essentially unchanged. The patient has a lot of groundglass changes bilaterally including the left upper lobe. Pneumonia is suspected. The bronchioloalveolar lavage was negative for any microbial growth Leukocytosis secondary to above, improving Hyponatremia, recovered Chronic and ongoing tobacco dependence of 48 years COPD Chronic back pain Chronic atrial fibrillation, rate is controlled and patient is currently on amiodarone 200 mg p.o. twice a day metoprolol 12.5 mg twice daily and the patien t is on anticoagulation with Eliquis. Plan: The patient is currently on 2 L of O2 nasal cannula, clinically improving CAT scan of the chest was reviewed Patient is currently on IV Zosyn, will continue same antibiotic coverage The bronchioloalveolar lavage was negative for any microbial growth Follow-up chest x-ray from today was noted The patient has a cavity in the right hemithorax in addition to an atelectatic right middle lobe, consider right middle lobe syndrome specially that there is c onsiderable amount of narrowing and bronchomalacia of the right middle lobe bronchus. None elevated procalcitonin Continue bronchodilators with albuterol nebulized treatments 4 times a day and Symbicort as maintenance Add Solu-Medrol 40 mg every 8 hours Encouraged use of incentive spirometer Will consider right middle lobe lobectomy, case was discussed with cardiothoracic surgery We will continue to follow and make further recommendations based on his clinical status
[2024-02-25] MEDS: methylPREDNISolone SOD SUCCI 40 MG/ML 1 ML VIAL IV SCH (17:46)
[2024-02-25] MEDS: HYDROmorphone 1 MG/ML 1 ML SYRINGE IVP PRN (22:31)
--- NOTE | 2024-02-26 07:07 | XR ---
EXAMINATION TYPE: XR chest 1V portable DATE OF EXAM: 02/26/2024 COMPARISON: 02/24/2024 CLINICAL INDICATION: Male, 63 years old with history of Status post right upper lobectomy; TECHNIQUE: Single frontal view of the chest is obtained. FINDINGS: There is been no interval change in the large masslike opacity involving the right hilum. The pulmona ry vasculature appear mildly congested and stable. There is a small focal opacity in the left lung ba se essentially unchanged compared to previous. No change in the small right pleural effusion. The osseous structures are intact IMPRESSION: No change in the acute bilateral cardiothoracic process. No change in the large masslike opacity involving the right hilum. [facility], , 02/26/2024 7:05 AM
--- NOTE | 2024-02-26 07:36 | P.PN ---
Subjective Progress Note Date: 02/26/24 Principal diagnosis: Recent right upper wedge resection/right upper lobectomy on February 09, 2024. 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 He also has a past medical history significant for paroxysmal atrial fibrillation on Eliquis for anticoagulation as an outpatient, COPD, obesity, tobacco dependence, quit smoking in December 2023, chronic back pain with chronic narcotic dependency as an outpatient, benign prostatic hypertrophy anxiety and depression. The patient was seen and evaluated at his bedside today February 26, 2024 on the fourth floor medical surgical unit. The patient's grandson is present at his bedside, patient is currently sitting up to the bedside chair, is awake, alert, oriented x 3 and is in no acute apparent distress. He is tolerating his breakfast. Denies any complaints of shortness of breath at this time, although complaints of shortness of breath with activity. Denies any complaints of pain at this time, although reports he had an episode of chest pain last night which was self-limiting. A troponin level was drawn last evening which showed less than 0.012. Oxygen saturations are 94% on 2 L nasal cannula and he is achieving 2000 mL on his incentive spirometry with encouragement. The patient reports he feels like he is improving each day. Patient states that he still has the productive cough but it is less frequent than the past couple of days. He r emains on Zosyn for antibiotic coverage, lab results from yesterday show his white count has normalized and was 7.87. He has been afebrile in the last 24 hours. The patient reports he has been up ambulating in the hallway. Chest x- ray results reviewed. Objective - Vital Signs Vital signs: Vital Signs Temp 97.8 F 02/26/24 00:58 Pulse 72 02/26/24 00:58 Resp 18 02/26/24 00:58 BP 121/68 02/26/24 00:58 Pulse Ox 93 L 02/26/24 00:58 FiO2 Intake & Output 02/25/24 02/26/24 02/26/24 18:59 06:59 18:59 Intake Total 320 Output Total 400 1600 Balance -80 -1600 Intake: Oral 320 Output: Urine 400 1600 Other: # Voids 2 - Exam CONSTITUTIONAL: Appears comfortable, cooperative, no acute distress. RESPIRATORY: Lungs sounds essentially clear throughout, diminished to his bilateral bases right greater than left. Respirations symmetrical, nonlabored. Currently on 2 L nasal cannula with oxygen saturation 94%. Able to achieve 2000 mL on his incentive spirometry. Continues to use his flutter valve. Strong productive cough. CARDIOVASCULAR: S1, S2 present. Regular rate and rhythm. Palpable peripheral pulses bilaterally. No edema present. No calf pain or tenderness noted. SCDs present. GASTROINTESTINAL: Abdomen soft, nontender, nondistended. Active bowel sounds present 4 quadrants. Tolerating diet. GENITOURINARY: Continues to void. INTEGUMENTARY: Skin is warm and dry with no clubbing or cyanosis is present. Right chest thoracic incisions well approximated and covered, no redness or drainage present. NEUROLOGIC: Cranial nerves II through XII intact. MUSKULOSKELETAL: Able to move all extremities, strength equal bilaterally, gait normal. PSYCHIATRIC: Alert and oriented to person place and time, appropriate affect, intact judgment and insight. - Allied health notes Allied health notes reviewed: nursing - Labs CBC & Chem 7: 02/25/24 02:51 02/25/24 02:51 Labs: Abnormal Lab Results - Last 24 Hours (Table) 02/25/24 02/25/24 Range/Units 02:51 02:51 RBC 3.14 L (4.40-5.60) X 10*6/uL Hgb 9.0 L (13.0-17.0) g/dL Hct 28.4 L (39.6-50.0) % MCHC 31.7 L (32.0-37.0) g/dL Plt Count 710 H (140-440) X 10*3/uL MPV 8.9 L (9.5-12.2) FL Immature Gran # 0.19 H (0.00-0.04) X 10*3/uL BUN 8.8 L (9.0-27.0) mg/dL BUN/Creatinine Ratio 9.78 L (12.00-20.00) Ratio Calcium 8.4 L (8.7-10.3) mg/dL Total Protein 5.9 L (6.2-8.2) g/dL Albumin 3.0 L (3.8-4.9) g/dL Albumin/Globulin Ratio 1.03 L (1.60-3.17) Ratio Microbiology - Last 24 Hours (Table) 02/22/24 11:25 Gram Stain - Final Bronchoalviolar Lavage - Right Bronchial Washings Culture - Final - Imaging and Cardiology Chest x-ray: report reviewed, image reviewed Assessment and Plan Assessment: Acute hypoxic respiratory failure secondary to acute infection in the right middle lobe Right midlung consolidation, rule out right middle lobe syndrome with secondary pneumonia, status post bronchoscopy performed on 02/11/2024, refer to the full report, status post bronchoscopy on February 22, [address] Smith, showing possible right middle lobe syndrome, and atelectatic narrowed right middle lobe bronchus with evidence of bronchomalacia and anatomic distortion secondary to a previous right upper lobe resection. Leukocytosis secondary to above Hyponatremia Squamous cell carcinoma, status post completion right upper lobectomy History of atrial fibrillation, on Eliquis as an outpatient Chronic obstructive pulmonary disease Chronic back pain History of tobacco dependence, with recent smoking cessation in December 2023 Benign prostatic hypertrophy Obesity with a BMI of 31.6 kg/m Anxiety Depression Plan: Continue chest physical therapy, every 4 hours. Solu-Medrol 40 mg IV every 8 hours has been added by Dr. Smith. Continue amiodarone 200 mg p.o. daily x 7 days. Wean oxygen as tolerated. Encourage use of incentive spirometry 10 times every hour while awake. Bronchodilator management per pulmonary medicine. Continue to encourage use of flutter valve. Continue to monitor daily chest x-rays. Antibiotic management per pulmonary/critical care medicine. Currently on Zosyn. WBC count has normalized. Increase activity as tolerated. Out of bed for all meals. Physical therapy following. Medical management other comorbidities per primary care service. Continue Mucomyst and Mucinex. Knee-high MICHAEL hose and sequential compression devices. Pain management per current as needed orders. Shower daily. More recommendations to follow based on patient's clinical course. Time with Patient: Less than 30
[2024-02-26] MEDS: AMIODARONE 200 MG TAB PO SCH (08:36)
--- NOTE | 2024-02-26 09:43 | P.PN ---
Subjective Progress Note Date: 02/25/24 Principal diagnosis: postop pneumothorax, lung cancer, anemia patient awake alert oriented 3 complains of chest pain dyspnea, status post lung resection 02/25/2024 Patient awake alert oriented 3 vital signs are stable patient is afebrile, patient has been complaining of intermittent chest discomfort, EKG no acute changes' Objective - Vital Signs Vital signs: Vital Signs Temp 97.5 F L 02/26/24 07:00 Pulse 72 02/26/24 08:55 Resp 17 02/26/24 07:00 BP 121/66 02/26/24 07:00 Pulse Ox 93 L 02/26/24 08:55 FiO2 Intake & Output 02/25/24 02/26/24 02/26/24 18:59 06:59 18:59 Intake Total 320 Output Total 400 1600 Balance -80 -1600 Intake: Oral 320 Output: Urine 400 1600 Other: # Voids 2 - Exam General: [Patient awake, alert and oriented times 3. Patient in no acute distress.] HEENT: [PERRL. EOMI. No pharyngeal erythema or exudate.] Neck: [No adenopathy.] Cardiac: [Heart regular in rate and rhythm. No S3. No S4. No clicks, rubs. No murmur.] Lungs: rhonchi bilateral lung tovar Healing surgical scar Abdomen: [No mass. No organomegaly. Bowel sounds presnt and normoactive in all 4 quadrants.] Extremes: [No edema no cyanosis no claudication normal pulses] Musculoskeletal: [No joint erythema, edema or tenderness.] Skin: [No rash.] Neurologic: [No lateralizing deficits. CN II - XII grossly intact.] Lymphatic: [No adenopathy.] - Labs CBC & Chem 7: 02/25/24 02:51 02/25/24 02:51 Labs: Abnormal Lab Results - Last 24 Hours (Table) 02/25/24 02/25/24 Range/Units 02:51 02:51 RBC 3.14 L (4.40-5.60) X 10*6/uL Hgb 9.0 L (13.0-17.0) g/dL Hct 28.4 L (39.6-50.0) % MCHC 31.7 L (32.0-37.0) g/dL Plt Count 710 H (140-440) X 10*3/uL MPV 8.9 L (9.5-12.2) FL Immature Gran # 0.19 H (0.00-0.04) X 10*3/uL BUN 8.8 L (9.0-27.0) mg/dL BUN/Creatinine Ratio 9.78 L (12.00-20.00) Ratio Calcium 8.4 L (8.7-10.3) mg/dL Total Protein 5.9 L (6.2-8.2) g/dL Albumin 3.0 L (3.8-4.9) g/dL Albumin/Globulin Ratio 1.03 L (1.60-3.17) Ratio Microbiology - Last 24 Hours (Table) 02/22/24 11:25 Gram Stain - Final Bronchoalviolar Lavage - Right Bronchial Washings Culture - Final Assessment and Plan (1) Folic acid deficiency Current Visit: Yes Status: Acute Priority: Medium Code(s): E53.8 - DEFICIENCY OF OTHER SPECIFIED B GROUP VITAMINS SNOMED Code(s): 067421331 (2) Hyponatremia Current Visit: Yes Status: Acute Code(s): E87.1 - HYPO-OSMOLALITY AND HYPONATREMIA SNOMED Code(s): 12807040 (3) Hyponatremia Current Visit: Yes Status: Acute Code(s): E87.1 - HYPO-OSMOLALITY AND HYPONATREMIA SNOMED Code(s): 79159130 (4) Lung mass Current Visit: Yes Status: Acute Code(s): R91.8 - OTHER NONSPECIFIC ABNORMAL FINDING OF LUNG FIELD SNOMED Code(s): 155083883 (5) Normocytic anemia Current Visit: Yes Status: Acute Priority: Medium Code(s): D64.9 - ANEMIA, UNSPECIFIED SNOMED Code(s): 998090711 (6) Pneumonia Current Visit: Yes Status: Acute Priority: High Code(s): J18.9 - PNEUMONIA, UNSPECIFIED ORGANISM SNOMED Code(s): 273259573 (7) Postoperative pneumonia Current Visit: Yes Status: Acute Code(s): J95.89 - OTH POSTPROC COMPLICATIONS AND DISORDERS OF RESP SYS, NEC; J18.9 - PNEUMONIA, UNSPECIFIED ORGANISM SNOMED Code(s): 242253922 (8) Acute anxiety Current Visit: No Status: Acute Code(s): F41.9 - ANXIETY DISORDER, UNSPECIFIED SNOMED Code(s): 75670470 Plan: continue IV antibiotic therapy Replace folic acid thoracic surgery consultation noted patient is stable Continue to follow closely Time with Patient: Less than 30
--- NOTE | 2024-02-26 14:22 | P.PN ---
Subjective Progress Note Date: 02/26/24 This is a very pleasant 63-year-old male patient with a known history of chronic and ongoing tobacco dependence of 48 years, chronic obstructive pulmonary disease, chronic back pain, atrial fibrillation. He also has a history of a solitary right upper lobe pulmonary nodule that was positive for squamous cell carcinoma based on a previous wedge resection in December 2023. He was brought back into the hospital for a robotically assisted right upper lobe lobectomy on February 09, 2024. During that hospitalization he was found to have a right middle lobe collapse and had undergone bronchoscopy with BAL. No endobronchial lesions or mucous was identified. He was discharged home on February 13, 2024. He was seen in the emergency department on February 17, 2024 for increasing shortness of breath cough and congestion. He was given azithromycin and discharged to home. He returned to the emergency room again the following day February 18, 2024 with similar symptoms that seem to be worsening. He had a hard time sleeping and was having right sided chest pain. Increased mucus. Chest x-ray shows similar findings of a large predominant right perihilar opacity. Stable small right apical hydropneumothorax. Small increasing right pleural effusion. White count 16.6. Hemoglobin 10.7. Platelets 552. Sodium 127. Potassium 5.1. Bicarb 24. BUN 20. Creatinine 0.98. Glucose 104. Viral screen negative. He is seen today in consultation on the regular medical floor. He is currently sitting up in bed. Awake and alert in no acute distress. He is quite weak. He is maintaining O2 saturations in the low 90s on room air. 02/20/2024, the patient is being seen for a follow-up. Patient is post right upper lobectomy for non-small cell lung cancer. 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 The patient has a persistent atelectasis/pneumon ia of the right middle lobe. Currently, the patient is hospitalized for worsening shortness of breath. Procalcitonin level is 0.47. Electrolytes are all within normal range with a BUN of 15 and a creatinine of 0.9. The white cell count is at 15.4 with a hemoglobin of 10.4 and a platelet count of 406. The right upper lobe resection was done on 02/10/2024 and it is consistent with benign lung without any residual malignancy. The lymph nodes are also negative for malignancy. The patient is currently on IV Rocephin. The patient is also on Symbicort as maintenance 2 puffs twice a day and IV fluids with normal saline at rate of 75 cc an hour. He is receiving nebulized albuterol 4 times a day. He is oxygen requirements are at 6 L with a pulse ox of 99% On 02/21/2024, the patient is being seen for a follow-up. The patient is on 5 L of oxygen by nasal cannula and the patient is pulse oxing 91%. Continues to have a congested cough. The blood culture was negative. The sputum sample was negative. The patient's white cell count is at 14 with a hemoglobin 9.9 and a platelet count of 658. BUN is 15 with a creatinine of 0.8 and sodium levels at 134. Remains on Ventolin nebulized treatments, Symbicort maintenance and IV Rocephin. The plan is to repeat the patient's bronchoscopy in a.m. and to reevaluate the right middle lobe bronchus. The chest x-ray from today is essentially unchanged. There is a masslike opacity in the right hilum which is probably an atelectatic right middle lobe. On 02/22/2024, patient is being seen for a follow-up. Earlier this morning, the patient was having significant respiratory distress and cough and congestion. He has required higher oxygen flow at 5 L/min nasal cannula with a pulse ox of 95%. Based on that, a CAT scan of the chest was completed this morning without contrast and the CAT scan showed right upper lobectomy, a cavity was seen in the right suprahilar area with a atelectatic right middle lobe consistent with right middle lobe syndrome, /consolidation/groundglass changes and the patient also had some groundglass opacities in the left upper lobe. Airspace disease also seen in the right with an air-fluid level within the cavity. Small right-sided pleural effusion was noted based on those findings, a bronchoscopy was performed today and as expected, the patient had significant narrowing of the right middle lobe bronchus. There was evidence of bronchomalacia. I was able to pass the bronchoscope to the right middle lobe bronchus and visualize the right middle lobe and right lower lobe. Therapeutic airway suctioning was done. 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 Based on those findings, the patient was started on IV Zosyn and antibiotic modification was done. He seems to be much more comfortable post bronchoscopy. He has been placed on anticoagulation regarding paroxysmal atrial fibrillation. His current rhythm has remained sinus and the patient will be taken off the anticoagulation. The sodium levels at 133, BUN 13 with a creatinine 0.8. The white cell count from yesterday was at 14.4 with a hemoglobin 9.9. The procalcitonin level is at 0.47. On 02/23/2024, the patient is being seen for a follow-up. The patient is post bronchoscopy was done yesterday and please refer to the documented report. Repeat chest x-ray was also done today and the patient's findings are essentially stable. There is a right suprahilar opacity which remains esse ntially unchanged and area of atelectatic/infected right middle lobe. Meanwhile, the patient remains on IV Zosyn. The white cell count is down to 11.7. Hemoglobin is stable at 9.0 and the patient was taken off the anticoagulation. Electrolytes are stable. BUN is 12 with a creatinine of 0.8. Awaiting the results of the bronchial lavage. Oxygenation is also stable and the patient remains on 5 L of oxygen by nasal cannula with a pulse ox of 98%. He is sitting up to bedside chair. He is awake and alert. Denies having any pain. He does report some ongoing shortness of breath and a congested cough. He gets short of breath with activity. He is afebrile for now. On today's evaluation of 02/24/2024, the patient is feeling better. His oxygenation is improved and the patient is currently down to 3 L of oxygen nasal cannula with pulse ox of 94%. A follow-up chest x-ray from today shows essentially normal interval change and there is volume loss and right midlung atelectasis/consolidation in addition to a right apical pneumothorax. There is ongoing diffuse groundglass pulmonary filtrates and small right-sided pleural effusion. Bronchoscopy and bronchial lavage was done. Cultures are still pending for now. There is polymicrobial on the Gram stain including few gram-positive cocci and rare gram-negative bacilli. The patient remains on IV Zosyn. The patient remains on Symbicort and DuoNeb the regiment vsogas-son-yioer. The patient is on Symbicort. No issues with pain. Cough and congestion has subsided. Cardiac rhythm is a sinus. The white cell count is 11 with a hemoglobin of 9 and a platelet count of 640. Electrolytes are all within normal limits. BUN is 12 with a creatinine 0.8. On 02/25/2024, the patient is feeling better. Less short of breath. Less b ronchospastic and wheezy. He has been weaned down to 2 L of oxygen by nasal cannula. Bronchoscopy endobronchial lavage is not yielded any microbial growth. The patient has responded nicely to IV Zosyn. DuoNeb nebulized treatments [id number]. Cough and congestion has subsided significantly. Repeat chest x-ray was done today and essentially there is no significant interval change. Small right-sided pleural effusion is seen. On today's evaluation of 02/26/2024, the patient is feeling better. Cough and congestion has subsided significantly. Cultures from the bronchioloalveolar lavage has been negative. The patient remains on IV Zosyn. He is currently on oxygen at 2 L/min nasal cannula. He remains on bronchodilators and steroids. Labs show a white cell count of 7.7 with a hemoglobin 9 and a platelet count of 710. Electrolytes are all within normal limits. Troponins are negative. Objective - Vital Signs Vital signs: Vital Signs Temp 97.5 F L 02/26/24 07:00 Pulse 76 02/26/24 09:10 Resp 17 02/26/24 07:00 BP 121/66 02/26/24 07:00 Pulse Ox 93 L 02/26/24 08:55 FiO2 Intake & Output 02/25/24 02/26/24 02/26/24 18:59 06:59 18:59 Intake Total 320 Output Total 400 1600 Balance -80 -1600 Intake: Oral 320 Output: Urine 400 1600 Other: # Voids 2 - Exam GENERAL EXAM: Alert, weak 63-year-old male, 3 L of O2 nasal cannula, no significant respiratory distress at rest HEAD: Normocephalic. EYES: Normal reaction of pupils, equal size. NOSE: Clear with pink turbinates. THROAT: No erythema or exudates. NECK: No masses, no JVD. CHEST: No chest wall deformity. LUNGS: Equal air entry with coarse rhonchi throughout. Diffuse rhonchi CVS: S1 and S2 normal with no audible murmur, regular rhythm. ABDOMEN: No hepatosplenomegaly, normal bowel sounds, no guarding or rigidity. SPINE: No scoliosis or deformity SKIN: No rashes CENTRAL NERVOUS SYSTEM: No focal deficits, tone is normal in all 4 extremities. EXTREMITIES: There is no peripheral edema. No clubbing, no cyanosis. Peripheral pulses are intact. - Labs CBC & Chem 7: 02/25/24 02:51 02/25/24 02:51 Labs: Microbiology - Last 24 Hours (Table) 02/22/24 11:25 Gram Stain - Final Bronchoalviolar Lavage - Right Bronchial Washings Culture - Final Assessment and Plan Plan: Acute hypoxemic respiratory failure, currently on 2 L of oxygen by nasal cannula. Right upper completion lobectomy for non-small cell lung cancer with squamous cell type. Patient was discharged home on 02/10/2024. The patient is also status post wedge resection, right upper lobe solitary pulmonary nodule, which was positive for squamous cell carcinoma, performed on 12/27/2023, stage I bronchogenic carcinoma, squamous cell, T1b, N0 M0 Right lung cavity with an atelectatic/consolidated right middle lobe in addition to development of groundglass pulmonary filtrates bilaterally more so on the left upper lobe area. The chest x-ray findings are stable and the patient is post bronchoscopy and the bronchoalveolar lavage of the right middle lobe. Aw aiting culture results. Remains on IV Zosyn. Follow-up chest x-ray is essentially unchanged. The patient has a lot of groundglass changes bilaterally including the left upper lobe. Pneumonia is suspected. The bronchioloalveolar lavage was negative for any microbial growth Leukocytosis secondary to above, improving Hyponatremia, recovered Chronic and ongoing tobacco dependence of 48 years COPD Chronic back pain Chronic atrial fibrillation, rate is controlled and patient is currently on amiodarone 200 mg p.o. twice a day metoprolol 12.5 mg twice daily and the patient is on anticoagulation with Eliquis. Plan: Patient is clinically improving Chest x-ray findings are stable White cell count is improving The patient is currently on 2 L of O2 nasal cannula, CAT scan of the chest was reviewed Patient is currently on IV Zosyn, will continue same antibiotic coverage The bronchioloalveolar lavage was negative for any microbial growth Follow-up chest x-ray from today was noted The patient has a cavity in the right hemithorax in addition to an atelectatic right middle lobe, consider right middle lobe syndrome specially that there is considerable amount of narrowing and bronchomalacia of the right middle lobe bronchus. None elevated procalcitonin Continue bronchodilators with albuterol nebulized treatments 4 times a day and Symbicort as maintenance Continue IV Solu-Medrol 40 mg every 8 hours Encouraged use of incentive spirometer Will consider right middle lobe lobectomy, case was discussed with cardiothoracic surgery We will continue to follow and make further recommendations based on his clinical status
--- NOTE | 2024-02-26 17:29 | P.PN ---
Subjective Progress Note Date: 02/26/24 Principal diagnosis: postop pneumothorax, lung cancer, anemia, pneumonia patient awake alert oriented 3 complains of chest pain dyspnea, status post lung resection 02/25/2024 Patient awake alert oriented 3 vital signs are stable patient is afebrile, patient has been complaining of intermittent chest discomfort, EKG no acute changes' 03/17/2024 Patient awake alert oriented 3 vital signs are stable patient is currently afebrile, no new chest pain today Objective - Vital Signs Vital signs: Vital Signs Temp 97.5 F L 02/26/24 14:00 Pulse 76 02/26/24 15:46 Resp 17 02/26/24 14:00 BP 129/66 02/26/24 14:00 Pulse Ox 93 L 02/26/24 14:00 FiO2 Intake & Output 02/25/24 02/26/24 02/26/24 18:59 06:59 18:59 Intake Total 320 120 Output Total 400 1600 Balance -80 -1600 120 Intake: Oral 320 120 Output: Urine 400 1600 Other: # Voids 2 4 # Bowel Movements 1 - Exam General: [Patient awake, alert and oriented times 3. Patient in no acute distress.] HEENT: [PERRL. EOMI. No pharyngeal erythema or exudate.] Neck: [No adenopathy.] Cardiac: [Heart regular in rate and rhythm. No S3. No S4. No clicks, rubs. No murmur.] Lungs: rhonchi bilateral lung tovar,with bibasilar wheezes Healing surgical scar Abdomen: [No mass. No organomegaly. Bowel sounds presnt and normoactive in all 4 quadrants.] Extremes: [No edema no cyanosis no claudication normal pulses] Musculoskeletal: [No joint erythema, edema or tenderness.] Skin: [No rash.] Neurologic: [No lateralizing deficits. CN II - XII grossly intact.] Lymphatic: [No adenopathy.] - Labs CBC & Chem 7: 02/25/24 02:51 02/25/24 02:51 Assessment and Plan (1) Folic acid deficiency Current Visit: Yes Status: Acute Priority: Medium Code(s): E53.8 - DEFICIENCY OF OTHER SPECIFIED B GROUP VITAMINS SNOMED Code(s): 223126788 (2) Hyponatremia Current Visit: Yes Status: Acute Code(s): E87.1 - HYPO-OSMOLALITY AND HYPONATREMIA SNOMED Code(s): 11309655 (3) Hyponatremia Current Visit: Yes Status: Acute Code(s): E87.1 - HYPO-OSMOLALITY AND HYPONATREMIA SNOMED Code(s): 62186901 (4) Lung mass Current Visit: Yes Status: Acute Code(s): R91.8 - OTHER NONSPECIFIC ABNORMAL FINDING OF LUNG FIELD SNOMED Code(s): 681927182 (5) Normocytic anemia Current Visit: Yes Status: Acute Priority: Medium Code(s): D64.9 - ANEMIA, UNSPECIFIED SNOMED Code(s): 482012371 (6) Pneumonia Current Visit: Yes Status: Acute Priority: High Code(s): J18.9 - PNEUMONIA, UNSPECIFIED ORGANISM SNOMED Code(s): 373987978 (7) Postoperative pneumonia Current Visit: Yes Status: Acute Code(s): J95.89 - OTH POSTPROC COMP LICATIONS AND DISORDERS OF RESP SYS, NEC; J18.9 - PNEUMONIA, UNSPECIFIED ORGANISM SNOMED Code(s): 909717520 (8) Acute anxiety Current Visit: No Status: Acute Code(s): F41.9 - ANXIETY DISORDER, UNSPECIFIED SNOMED Code(s): 22116889 Plan: continue IV antibiotic therapy Replace folic acid thoracic surgery consultation noted Continue to follow closely Time with Patient: Less than 30
--- NOTE | 2024-02-27 07:28 | P.PN ---
Subjective Progress Note Date: 02/27/24 Principal diagnosis: Recent right upper wedge resection/right upper lobectomy for squamous cell carcinoma, right middle lobe syndrome, pneumonia. Previous medical history of right upper lobe neoplasm with pathology consistent with squamous cell carcinoma status post robotic assisted thoracoscopic wedge resection right upper lobe mass with hilar and mediastinal lymph node dissection and subsequent robotic assisted thoracoscopic completion right upper lobectomy, paroxysmal atrial fibrillation on Eliquis for anticoagulation outpatient, COPD, obesity, previous tobacco dependence with recent cessation, chronic back pain with chronic narcotic dependency, benign prostatic hypertrophy, anxiety and depression The patient was seen and examined this morning sitting up in a recliner on the medical surgical unit in no acute distress. Family was present. He just got back from a chest x-ray which was reviewed. States he is feeling better, does still have some chest pain with coughing he is taking Kyle tens 4 times daily as well as 2 mg IV push Dilaudid every 4 hours. Patient remains on IV Zosyn for antibiotic coverage, all microbiology finalized negative, remains afebrile, most recent WBC returned to normal. Remains on bronchodilators, IV steroids pneumology. He has been ambulating in the hallway, showering daily. Remains on 2 L nasal cannula with oxygen saturation in the mid 90s, able to achieve 2000 mL on his incentive spirometry. Objective - Vital Signs Vital signs: Vital Signs Temp 97.4 F L 02/27/24 01:37 Pulse 73 02/27/24 01:37 Resp 16 02/27/24 01:37 BP 137/78 02/27/24 01:37 Pulse Ox 95 02/27/24 01:37 FiO2 Intake & Output 02/26/24 02/27/24 02/27/24 18:59 06:59 18:59 Intake Total 240 240 Output Total 250 Balance 240 -10 Intake: Oral 240 240 Output: Urine 250 Other: # Voids 4 # Bowel Movements 1 - Exam CONSTITUTIONAL: Appears comfortable, cooperative, no acute distress RESPIRATORY: Lungs sounds diminished bilaterally with faint expiratory wheezes heard on the right. Respirations even, nonlabored. Currently on 2 L nasal cannula with oxygen saturation 95%. Able to achieve 2000 mL on incentive spirometry. Strong cough. CARDIOVASCULAR: S1, S2 present. Regular rate and rhythm. Palpable peripheral pulses bilaterally. Bilateral lower extremity pitting edema present. No calf pain or tenderness noted. SCDs present. GASTROINTESTINAL: Abdomen soft, nontender, nondistended. Active bowel sounds present 4 quadrants. Tolerating diet. Positive bowel movement 02/25 GENITOURINARY: Continues to void INTEGUMENTARY: Skin is warm and dry NEUROLOGIC: Cranial nerves II through XII intact MUSKULOSKELETAL: Able to move all extremities, strength equal bilaterally, gait normal PSYCHIATRIC: Alert and oriented to person place and time, appropriate affect, intact judgment and insight - Allied health notes Allied health notes reviewed: nursing - Labs CBC & Chem 7: 02/25/24 02:51 02/25/24 02:51 - Imaging and Cardiology Chest x-ray: image reviewed Assessment and Plan Assessment: Acute hypoxic respiratory failure secondary to acute infection in the right middle lobe Right midlung consolidation, right middle lobe syndrome with secondary pneumonia, status post bronchoscopy performed on 02/11/2024 and 02/22/24, atelectatic narrowed right middle lobe bronchus with evidence of bronchomalacia and anatomic distortion secondary to a previous right upper lobe resection. Leukocytosis secondary to above, resolved Hyponatremia, resolved History of squamous cell carcinoma, status post wedge resection followed by completion right upper lobectomy Paroxysmal atrial fibrillation, on Eliquis as an outpatient, discontinued this admission Chronic obstructive pulmonary disease Chronic back pain on chronic narcotics History of tobacco dependence with recent cessation in December 2023 Benign prostatic hypertrophy Obesity Anxiety Depression Plan: Continue chest physical therapy, every 4 hours, continue to encourage use of flutter valve Antibiotics, bronchodilators, steroids per pulmonology Continue Mucomyst and Mucinex Wean oxygen as tolerated. Encourage use of incentive spirometry 10 times every hour while awake Continue to monitor daily chest x-rays Pain control per internal medicine Continue amiodarone 200 mg p.o. daily x 7 days, continue Lopressor Increase activity, ambulate as tolerated, shower daily Continue knee-high MICHAEL hose during the day GI/DVT prophylaxis Medical management other comorbidities per primary care service More recommendations to follow based on patient's clinical course
--- NOTE | 2024-02-27 07:34 | XR ---
EXAMINATION TYPE: XR chest 2V DATE OF EXAM: 02/27/2024 6:43 AM COMPARISON: 02/08/2024 CLINICAL INDICATION: Male, 63 years old with history of Post right upper lobectomy, , TECHNIQUE: PA and lateral views FINDINGS: Heart normal size. Underlying masslike opacity right perihilar region measuring up to 13.7 cm. Air-fl uid level within the inferior portion of this masslike opacity better seen now. Mild interstitial den sity throughout the left lung show some movement. No sizable pleural effusion. Postsurgical volume lo ss right hemithorax. IMPRESSION: 1. Ongoing masslike right perihilar opacity measuring up to 3.7 cm. Redemonstrated air-fluid level wi thin the inferior aspect of the opacity. 2. Interstitial density in the left lung shows some improvement. [facility], , 02/27/2024 7:32 AM
[2024-02-27 08:35] LABS: Basophils # (A) 0.03 X 10*3/uL (0.00-0.10); Basophils % (A) 0.2 %; Eosinophils # (A) 0 X 10*3/uL (0.04-0.35); Eosinophils % (A) 0 %; HCT 28.8 % (39.6-50.0); HGB 9.1 g/dL (13.0-17.0); Lymphocytes # (A) 1.02 X 10*3/uL (0.90-5.00); Lymphocytes % (A) 8.1 %; MCH 29.4 pg (27.0-32.0); MCHC 31.6 g/dL (32.0-37.0); MCV 93.2 FL (80.0-97.0); Mean Platelet Volume 8.9 FL (9.5-12.2); Monocytes # (A) 0.32 X 10*3/uL (0.20-1.00); Monocytes % (A) 2.5 %; NRBC Per 100 WBC 0 X 10*3/uL (0.00-0.01); Neutrophils # (A) 10.98 X 10*3/uL (1.80-7.70); Neutrophils % (A) 86.8 %; Platelet Count 696 X 10*3/uL (140-440); RBC 3.09 X 10*6/uL (4.40-5.60); WBC 12.66 X 10*3/uL (4.50-10.00)
[2024-02-27 08:57] LABS: Blood Urea Nitrogen 9.6 mg/dL (9.0-27.0); Calcium 8.6 mg/dL (8.7-10.3); Carbon Dioxide 27.1 mmol/L (21.6-31.8); Chloride 100 mmol/L (96-109); Glucose 165 mg/dL (70-110); Potassium 4.5 mmol/L (3.5-5.5); Sodium 137 mmol/L (135-145)
[2024-02-27] MEDS: CYANOCOBALAMIN 1,000 MCG/ML 1 ML VIAL IM ONE (09:19)
[2024-02-27 09:20] LABS: Nucleated Cells, Body Fluid 102500 /UL
[2024-02-27] MEDS: HYDROmorphone 1 MG/ML 1 ML SYRINGE IVP PRN (11:02)
--- NOTE | 2024-02-27 14:17 | P.PN ---
Subjective Progress Note Date: 02/27/24 No acute events, reporting improvement in symptoms but still having SOB and right upper back pain. Continues on IV abx for suspected pneumonia. Afebrile, SPO2 94% on 2L Objective - Vital Signs Vital signs: Vital Signs Temp 98.2 F 02/27/24 07:15 Pulse 76 02/27/24 11:18 Resp 18 02/27/24 07:15 BP 127/74 02/27/24 07:15 Pulse Ox 94 L 02/27/24 07:15 FiO2 Intake & Output 02/26/24 02/27/24 02/27/24 18:59 06:59 18:59 Intake Total 240 240 120 Output Total 500 Balance 240 -260 120 Intake: Oral 240 240 120 Output: Urine 500 Other: # Voids 4 # Bowel Movements 1 - Constitutional General appearance: Present: average body habitus, no acute distress - EENT Eyes: Present: anicteric sclerae, EOMI ENT: Present: hearing grossly normal - Respiratory Details: breathing is even and unlabored - Cardiovascular Details: well perfused - Integumentary Integumentary: Absent: cyanotic, jaundiced - Musculoskeletal Musculoskeletal: Present: strength equal bilaterally - Psychiatric Psychiatric: Present: A&O x's 3 - Labs CBC & Chem 7: 02/27/24 03:04 02/27/24 03:04 Labs: Abnormal Lab Results - Last 24 Hours (Table) 02/22/24 02/27/24 02/27/24 Range/Units 11:25 03:04 03:04 WBC 12.66 H (4.50-10.00) X 10*3/uL RBC 3.09 L (4.40-5.60) X 10*6/uL Hgb 9.1 L (13.0-17.0) g/dL Hct 28.8 L (39.6-50.0) % MCHC 31.6 L (32.0-37.0) g/dL Plt Count 696 H (140-440) X 10*3/uL MPV 8.9 L (9.5-12.2) FL Immature Gran # 0.31 H (0.00-0.04) X 10*3/uL Neutrophils # 10.98 H (1.80-7.70) X 10*3/uL Eosinophils # 0 L (0.04-0.35) X 10*3/uL Glucose 165 H (70-110) mg/dL Calcium 8.6 L (8.7-10.3) mg/dL Fluid Appearance Turbid A (Clear) Fluid RBC 37104 H (0-2000) /uL Microbiology - Last 24 Hours (Table) 02/22/24 11:25 Gram Stain - Final Bronchoalviolar Lavage - Right Bronchial Washings Culture - Final Assessment and Plan (1) Folic acid deficiency Current Visit: Yes Status: Acute Priority: Medium Code(s): E53.8 - DEFICIENCY OF OTHER SPECIFIED B GROUP VITAMINS SNOMED Code(s): 476733160 (2) Normocytic anemia Current Visit: Yes Status: Acute Priority: Medium Code(s): D64.9 - ANEMIA, UNSPECIFIED SNOMED Code(s): 187820988 (3) Postoperative pneumonia Current Visit: Yes Status: Acute Priority: High Code(s): J95.89 - OTH POSTPROC COMPLICATIONS AND DISORDERS OF RESP SYS, NEC; J18.9 - PNEUMONIA, UNSPECIFIED ORGANISM SNOMED Code(s): 254543659 (4) Squamous cell lung cancer Current Visit: No Status: Acute Priority: Medium Code(s): C34.90 - MALIGNANT NEOPLASM OF UNSP PART OF UNSP BRONCHUS OR LUNG SNOMED Code(s): 245714286 Plan: Pneumonia -Postoperative HAP -Developed right middle lobe collapse with atelectasis following right upper lobe wedge resection with mediastinal lymph node dissection on 12/27/2023 -Bronchoscopy on 02/11/2024 revealed no evidence of endobronchial lesions or obstruction in the right middle or right lower lobe and no abnormal findings in the left lung -He did return to the ED on 02/17/2024 with increased dyspnea and fever with chest x-rays showing persistent masslike consolidations in the right lung -He was given ceftriaxone/azithromycin. Currently treated with Zosyn, steroids and bronchodilators -Clinically, dyspnea has improved -Defer management of postoperative pneumonia to the Pulmonology and Cardiothoracic teams Normocytic anemia -Saturation 4.9%, ferritin 799. Most consistent with inflammation. Plan would be to recheck iron studies outpatient after patient healed from surgery and recovered from acute illness. -Folic acid deficiency noted. Folic acid started. -Low normal B12 levels. Methylmalonic acid elevated. Parenteral Vit B12 x 1 given for functional B12 deficiency -Hemoglobin stable today at 9.1, no transfusions at this time. Transfuse for hemoglobin less than 7 or if patient is symptomatic. Elevated WBC and platelet counts, reactive. 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 PET/CT 11/03/2023 noted right upper lobe nodule measuring 1.1 cm with an SUV of 4.8 that increased FDG avidity compared to PET/CT in December 2021 with no other concerning findings. Right upper lobe wedge resection with lymph node dissection performed on 12/27/2023 noted 1.3 cm grade 2 invasive squamous cell carcinoma less than 2 mm from the parenchymal margin with at least 6 lymph nodes from R4, level 7, R8, R10, and R11 all negative. Given the close parenchymal margin, he underwent right upper lobectomy on 02/09/2024 that noted no residual neoplasm with 2 additional hilar lymph nodes being negative for malignancy. Final pathological staging [id number] squamous cell carcinoma -No adjuvant treatment is indicated -He does require routine surveillance with CT scans of the chest every 3 to 4 months for the first 2 years per NCCN guidelines Doctor attests: I performed a history and physical examination of this patient, developed impression and plan of care. Discussed with dictator. I agree with dictators note, documented as a scribe.
--- NOTE | 2024-02-27 15:52 | P.PN ---
Subjective Progress Note Date: 02/27/24 This is a very pleasant 63-year-old male patient with a known history of chronic and ongoing tobacco dependence of 48 years, chronic obstructive pulmonary disease, chronic back pain, atrial fibrillation. He also has a history of a solitary right upper lobe pulmonary nodule that was positive for squamous cell carcinoma based on a previous wedge resection in December 2023. He was brought back into the hospital for a robotically assisted right upper lobe lobectomy on February 09, 2024. During that hospitalization he was found to have a right middle lobe collapse and had undergone bronchoscopy with BAL. No endobronchial lesions or mucous was identified. He was discharged home on February 13, 2024. He was seen in the emergency department on February 17, 2024 for increasing shortness of breath cough and congestion. He was given azithromycin and discharged to home. He returned to the emergency room again the following day February 18, 2024 with similar symptoms that seem to be worsening. He had a hard time sleeping and was having right sided chest pain. Increased mucus. Chest x-ray shows similar findings of a large predominant right perihilar opacity. Stable small right apical hydropneumothorax. Small increasing right pleural effusion. White count 16.6. Hemoglobin 10.7. Platelets 552. Sodium 127. Potassium 5.1. Bicarb 24. BUN 20. Creatinine 0.98. Glucose 104. Viral screen negative. He is seen today in consultation on the regular medical floor. He is currently sitting up in bed. Awake and alert in no acute distress. He is quite weak. He is maintaining O2 saturations in the low 90s on room air. 02/20/2024, the patient is being seen for a follow-up. Patient is post right upper lobectomy for non-small cell lung cancer. 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 The patient has a persistent atelectasis/pneumonia of the right middle lobe. Currently, the patient is hospitalized for worsening shortness of breath. Procalcitonin level is 0.47. Electrolytes are all within normal range with a BUN of 15 and a creatinine of 0.9. The white cell count is at 15.4 with a hemoglobin of 10.4 and a platelet count of 406. The right upper lobe resection was done on 02/10/2024 and it is consistent with benign lung without any residual malignancy. The lymph nodes are also negative for malignancy. The patient is currently on IV Rocephin. The patient is also on Symbicort as maintenance 2 puffs twice a day and IV fluids with normal saline at rate of 75 cc an hour. He is receiving nebulized albuterol 4 times a day. He is oxygen requirements are at 6 L with a pulse ox of 99% On 02/21/2024, the patient is being seen for a follow-up. The patient is on 5 L of oxygen by nasal cannula and the patient is pulse oxing 91%. Continues to have a congested cough. The blood culture was negative. The sputum sample was negative. The patient's white cell count is at 14 with a hemoglobin 9.9 and a platelet count of 658. BUN is 15 with a creatinine of 0.8 and sodium levels at 134. Remains on Ventolin nebulized treatments, Symbicort maintenance and IV Rocephin. The plan is to repeat the patient's bronchoscopy in a.m. and to reevaluate the right middle lobe bronchus. The chest x-ray from today is essentially unchanged. There is a masslike opacity in the right hilum which is probably an atelectatic right middle lobe. On 02/22/2024, patient is being seen for a follow-up. Earlier this morning, the patient was having significant respiratory distress and cough and congestion. He has required higher oxygen flow at 5 L/min nasal cannula with a pulse ox of 95%. Based on that, a CAT scan of the chest was completed this morning without contrast and the CAT scan showed right upper lobectomy, a cavity was seen in the right suprahilar area with a atelectatic right middle lobe consistent with right middle lobe syndrome, /consolidation/groundglass changes and the patient also had some groundglass opacities in the left upper lobe. Airspace disease also seen in the right with an air-fluid level within the cavity. Small right-sided pleural effusion was noted based on those findings, a bronchoscopy was performed today and as expected, the patient had significant narrowing of the right middle lobe bronchus. There was evidence of bronchomalacia. I was able to pass the bronchoscope to the right middle lobe bronchus and visualize the right middle lobe and right lower lobe. Therapeutic airway suctioning was done. 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 Based on those findings, the patient was started on IV Zosyn and antibiotic modification was done. He seems to be much more comfortable post bronchoscopy. He has been placed on anticoagulation regarding paroxysmal atrial fibrillation. His current rhythm has remained sinus and the patient will be taken off the anticoagulation. The sodium levels at 133, BUN 13 with a creatinine 0.8. The white cell count from yesterday was at 14.4 with a hemoglobin 9.9. The procalcitonin level is at 0.47. On 02/23/2024, the patient is being seen for a follow-up. The patient is post bronchoscopy was done yesterday and please refer to the documented report. Repeat chest x-ray was also done today and the patient's findings are es sentially stable. There is a right suprahilar opacity which remains essentially unchanged and area of atelectatic/infected right middle lobe. Meanwhile, the patient remains on IV Zosyn. The white cell count is down to 11.7. Hemoglobin is stable at 9.0 and the patient was taken off the anticoagulation. Electrolytes are stable. BUN is 12 with a creatinine of 0.8. Awaiting the results of the bronchial lavage. Oxygenation is also stable and the patient remains on 5 L of oxygen by nasal cannula with a pulse ox of 98%. He is sitting up to bedside chair. He is awake and alert. Denies having any pain. He does report some ongoing shortness of breath and a congested cough. He gets short of breath with activity. He is afebrile for now. On today's evaluation of 02/24/2024, the patient is feeling better. His oxygenation is improved and the patient is currently down to 3 L of oxygen nasal cannula with pulse ox of 94%. A follow-up chest x-ray from today shows essentially normal interval change and there is volume loss and right midlung atelectasis/consolidation in addition to a right apical pneumothorax. There is ongoing diffuse groundglass pulmonary filtrates and small right-sided pleural effusion. Bronchoscopy and bronchial lavage was done. Cultures are still pending for now. There is polymicrobial on the Gram stain including few gram- positive cocci and rare gram-negative bacilli. The patient remains on IV Zosyn. The patient remains on Symbicort and DuoNeb the regiment [id number]. The patient is on Symbicort. No issues with pain. Cough and congestion has subsided. Cardiac rhythm is a sinus. The white cell count is 11 with a hemoglobin of 9 and a platelet count of 640. Electrolytes are all within normal limits. BUN is 12 with a creatinine 0.8. On 02/25/2024, the patient is feeling better. Less short of breath. Less bronchospastic and wheezy. He has been weaned down to 2 L of oxygen by nasal cannula. Bronchoscopy endobronchial lavage is not yielded any microbial growth. The patient has responded nicely to IV Zosyn. DuoNeb nebulized treatments [id number]. Cough and congestion has subsided significantly. Repeat chest x-ray was done today and essentially there is no significant interval change. Small right-sided pleural effusion is seen. On today's evaluation of 02/26/2024, the patient is feeling better. Cough and congestion has subsided significantly. Cultures from the bronchioloalveolar lavage has been negative. The patient remains on IV Zosyn. He is currently on oxygen at 2 L/min nasal cannula. He remains on bronchodilators and steroids. Labs show a white cell count of 7.7 with a hemoglobin 9 and a platelet count of 710. Electrolytes are all within normal limits. Troponins are negative. The patient is seen today February 27, 2024 in follow-up on the regular medical floor. He is currently sitting up in a chair at the bedside. Awake and alert in no acute distress. He is maintaining O2 saturations in the 90s on 2 L/min per nasal cannula. He is afebrile. Hemodynamically stable. Chest x-ray continues to show ongoing masslike right perihilar opacity measuring up to 3.7 cm. Redemonstrated air-fluid level within the inferior aspect of the opacity. This is mostly the right middle lobe volume loss. Sputum and blood cultures revealed no growth. Bronchial wash cultures revealed no growth. White count 12.6. Hemoglobin 9.1. Platelets 696. Sodium 137. Potassium 4.5. Bicarb 27. BUN 10. Creatinine 0.8. Glucose 166. He remains on DuoNeb inhalations, Symbicort, Solu-Medrol. Antibiotics in the form of Zosyn. Heparin for DVT prophylaxis. Objective - Vital Signs Vital signs: Vital Signs Temp 97.7 F 02/27/24 13:55 Pulse 68 12/02/24 15:12 Resp 19 02/27/24 13:55 BP 145/76 02/27/24 13:55 Pulse Ox 95 02/27/24 13:55 FiO2 Intake & Output 02/26/24 02/27/24 02/27/24 18:59 06:59 18:59 Intake Total 240 240 120 Output Total 500 Balance 240 -260 120 Intake: Oral 240 240 120 Output: Urine 500 Other: # Voids 4 2 # Bowel Movements 1 - Exam GENERAL EXAM: Alert, 63-year-old male, up in a chair, on 2 L nasal cannula, fairly comfortable in no apparent distress. HEAD: Normocephalic. EYES: Normal reaction of pupils, equal size. NOSE: Clear with pink turbinates. THROAT: No erythema or exudates. NECK: No masses, no JVD. CHEST: No chest wall deformity. LUNGS: Equal air entry with scattered rhonchi more so on the right, diminished. CVS: S1 and S2 normal with no audible murmur, regular rhythm. ABDOMEN: No hepatosplenomegaly, normal bowel sounds, no guarding or rigidity. SPINE: No scoliosis or deformity SKIN: No rashes CENTRAL NERVOUS SYSTEM: No focal deficits, tone is normal in all 4 extremities. EXTREMITIES: There is no peripheral edema. No clubbing, no cyanosis. Peripheral pulses are intact. - Labs CBC & Chem 7: 02/27/24 03:04 02/27/24 03:04 Labs: Abnormal Lab Results - Last 24 Hours (Table) 02/22/24 02/27/24 02/27/24 Range/Units 11:25 03:04 03:04 WBC 12.66 H (4.50-10.00) X 10*3/uL RBC 3.09 L (4.40-5.60) X 10*6/uL Hgb 9.1 L (13.0-17.0) g/dL Hct 28.8 L (39.6-50.0) % MCHC 31.6 L (32.0-37.0) g/dL Plt Count 696 H (140-440) X 10*3/uL MPV 8.9 L (9.5-12.2) FL Immature Gran # 0.31 H (0.00-0.04) X 10*3/uL Neutrophils # 10.98 H (1.80-7.70) X 10*3/uL Eosinophils # 0 L (0.04-0.35) X 10*3/uL Glucose 165 H (70-110) mg/dL Calcium 8.6 L (8.7-10.3) mg/dL Fluid Appearance Turbid A (Clear) Fluid RBC 42779 H (0-2000) /uL Microbiology - Last 24 Hours (Table) 02/22/24 11:25 Gram Stain - Final Bronchoalviolar Lavage - Right Bronchial Washings Culture - Final Assessment and Plan Assessment: Acute hypoxemic respiratory failure secondary to right lung cavity with an atelectatic/consolidated right middle lobe in addition to development of groundglass pulmonary filtrates bilaterally more so on the left upper lobe area. The chest x-ray findings are stable and the patient is post bronchoscopy and the bronchoalveolar lavage of the right middle lobe. Ulcers revealed no growth. Remains on IV Zosyn. Follow-up chest x-ray is essentially unchanged. The patient has a lot of groundglass changes bilaterally including the left upper lobe. Pneumonia is suspected. The bronchioloalveolar lavage was negative for any microbial growth Leukocytosis secondary to above Recent discharge February 13, 2024 following a robotically assisted right upper lobectomy, for stage I bronchogenic carcinoma, squamous cell, T1b, N0 M0 Atrial fibrillation with RVR, post lobectomy Right middle lobe atelectasis, status post bronchoscopy, February 11, 2024 Prior wedge resection, right upper lobe solitary pulmonary nodule, which was positive for squamous cell carcinoma, December 27, 2023 Chronic and ongoing tobacco dependence of 48 years COPD Chronic back pain Plan: The patient was seen and evaluated Chest x-ray, labs and medications reviewed Currently stable and on 2 L nasal cannula Plan is for right middle lobectomy on 02/29/2024 Will discontinue steroids Continue bronchodilators Continue Zosyn Heparin for DVT prophylaxis We will continue to follow I have personally seen and examined the patient, performed the documentation and the assessment and plan as written. Number of minutes spent on the visit: 10. Dictation was produced using [employer] software. Please excuse any grammatical, word or spelling errors.
--- NOTE | 2024-02-27 16:29 | P.PN ---
Subjective Progress Note Date: 02/27/24 H&P Date: 02/19/24 Chief Complaint: Cough, diaphoresis, shortness of breath Brian is a 63-year-old white male with known squamous cell carcinoma. He had underwent a mediastinal lymph node dissection and wedge resection of the lung on December 27, 2023. He returned back and February 08 for a right upper lobe lobectomy. While here he had collapse of the right middle lung and underwent a bronchoscopy and bronc and BAL. He developed a complication of paroxysmal atrial fibrillation during his stay. He did improve and was sent home in stable condition. He returned emergency room on 1121 with shortness of breath and cough was sent home. He returned again on 02/18/2024 with worsening symptoms. Found to have a leukocytosis coughing and not feeling well. Also complaining of left-sided chest pain and right-sided chest pain at his surgical site. This morning he isb in sinus rhythm per telemetry heart rates controlled in the 80s O2 saturation 93% on room air. Laboratory studies now show a leukocytosis 16 6 hemoglobin 10.7 and a left shift with the neutrophils at 14,600. Blood chemistries do show a hyponatremia with a sodium 127 chloride 95, calcium is 7.9. Total protein is 6.2 with a albumin of 3.2. 02/20/2024: Brian was reevaluated for his right middle lobe pneumonia. Vital signs show he is afebrile heart rate and respiratory rate blood pressure control. He is on 6 L of O2 via nasal cannula. WBC count is improved now 15.4, hemoglobin 10.4 neutrophils are 14.23, chemistries show sodium 133. Sputum and blood cultures pending. 02/21/2024: Parents feeling slightly better today. He is being treated for his right middle lobe pneumonia. His regular lobe and collapsed after his right upper lobe surgical assisted lobectomy. He remains on ceftriaxone and azithromycin for antibiotics apixaban for anticoagulation acetylcysteine and guaifenesin for mucus production. He is on Symbicort and Atrovent for inhalation therapy at this time. 02/22/2024: Patient could not be seen today as he was down for his bronchoscopy. Labs and chart are reviewed today. Patient remains on Zosyn. He has Eliquis for anticoagulation. He has DuoNeb updrafts or shortness of breath is on Mucomyst and Symbicort. 02/23/2024 patient awake alert oriented 3 complains of chest pain dyspnea 02/24/2024 patient awake alert oriented 3 complains of chest pain dyspnea, status post lung resection 02/25/2024 Patient awake alert oriented 3 vital signs are stable patient is afebrile, patient has been complaining of intermittent chest discomfort, EKG no acute changes' 02/26/2024 Patient awake alert oriented 3 vital signs are stable patient is currently afebrile, no new chest pain today 02/27/24 continues on Zosyn, nebulized bronchodilators, afebrile, WBC 12.66. , Bronch ,sputum and blood cultures reporting negative.ambulated in the hallway earlier this morning, tolerated exertion well. Currently sitting up in chair, maintaining O2 sats in the mid 90s on 2 L nasal cannula. Chest x-ray reporting ongoing masslike right perihilar opacity measuring up to 3.7 cm. Redemonstrated air-fluid level within the inferior aspect of the opacity. Interstitial density in the left lung shows some improvement. Reports chest pain with coughing , receiving [place] scheduled and Dilaudid prn.CTS consulted, recommendations pending. Hemoglobin 9.1, platelets 696 .renal function stable. Objective - Vital Signs Vital signs: Vital Signs Temp 98.2 F 02/27/24 07:15 Pulse 72 02/27/24 11:34 Resp 18 02/27/24 07:15 BP 127/74 02/27/24 07:15 Pulse Ox 94 L 02/27/24 07:15 FiO2 Intake & Output 02/26/24 02/27/24 02/27/24 18:59 06:59 18:59 Intake Total 240 240 120 Output Total 500 Balance 240 -260 120 Intake: Oral 240 240 120 Output: Urine 500 Other: # Voids 4 # Bowel Movements 1 - Exam General: Eating up in chair, alert and oriented times 3,no acute distress.] HEENT: [PERRL. EOMI. No pharyngeal erythema or exudate.] Neck: Supple, no JVD Cardiac: [Heart regular in rate and rhythm. No S3. No S4. No clicks, rubs. No murmur.] Lungs: Unlabored, equal air entry, diminished with intermittent expiratory wheezing, occasional scattered rhonchi of right lung Abdomen: Soft, nontender, nondistended, no organomegaly. Positive bowel sounds. Extremes: [Decreased pitting edema, no cyanosis no claudication normal pulses, wearing teds.] Skin: [Warm and dry, no rash noted.] Neurologic: CN II - XII grossly intact.] - Labs CBC & Chem 7: 02/27/24 03:04 02/27/24 03:04 Labs: Abnormal Lab Results - Last 24 Hours (Table) 02/22/24 02/27/24 02/27/24 Range/Units 11:25 03:04 03:04 WBC 12.66 H (4.50-10.00) X 10*3/uL RBC 3.09 L (4.40-5.60) X 10*6/uL Hgb 9.1 L (13.0-17.0) g/dL Hct 28.8 L (39.6-50.0) % MCHC 31.6 L (32.0-37.0) g/dL Plt Count 696 H (140-440) X 10*3/uL MPV 8.9 L (9.5-12.2) FL Immature Gran # 0.31 H (0.00-0.04) X 10*3/uL Neutrophils # 10.98 H (1.80-7.70) X 10*3/uL Eosinophils # 0 L (0.04-0.35) X 10*3/uL Glucose 165 H (70-110) mg/dL Calcium 8.6 L (8.7-10.3) mg/dL Fluid Appearance Turbid A (Clear) Fluid RBC 51637 H (0-2000) /uL Microbiology - Last 24 Hours (Table) 02/22/24 11:25 Gram Stain - Final Bronchoalviolar Lavage - Right Bronchial Washings Culture - Final Assessment and Plan Assessment: Acute hypoxic respiratory failure, positive groundglass changes bilaterally, chest x-ray reporting ongoing masslike right perihilar opacity measuring up to 3.7 cm. Redemonstrated air-fluid level within the inferior aspect of the opacity. Interstitial density in the left lung shows some improvement. Recent lobectomy of right upper lung secondary to Squamous cell lung CA, discharged 02/12 Leukocytosis Right middle lobe atelectasis status post bronchoscopy 02/11/2024. Bronchial lavage cultures reporting negative Paroxysmal atrial fibrillation with RVR, new onset- post lobectomy Chronic nicotine dependence COPD Chronic back pain BPH Anxiety Depression Obesity, BMI 32 Plan: Continue on current medication regimen ,monitoring and symptomatic treatment. Aggressive pulmonary toileting with incentive spirometer reinforced, nebulized bronchodilators , IV steroids and antibiotic. Evaluated by CTS this morning, recommendations pending. The impression and plan of care has been dictated as directed. : I performed a history and examination of this patient, discussed the same with the dictator. I agree with the dictator's note ,documented as a scribe. Any additional findings or plans will be noted.
[2024-02-27] MEDS: LORazepam 0.5 MG TAB PO SCH (23:13)
--- NOTE | 2024-02-28 09:00 | P.PN ---
Subjective Progress Note Date: 02/28/24 Principal diagnosis: Recent right upper wedge resection/right upper lobectomy for squamous cell carcinoma, right middle lobe syndrome, pneumonia. Previous medical history of right upper lobe neoplasm with pathology consistent with squamous cell carcinoma status post robotic assisted thoracoscopic wedge resection right upper lobe mass with hilar and mediastinal lymph node dissection and subsequent robotic assisted thoracoscopic completion right upper lobectomy, paroxysmal atrial fibrillation on Eliquis for anticoagulation outpatient, COPD, obesity, previous tobacco dependence with recent cessation, chronic back pain with chronic narcotic dependency, benign prostatic hypertrophy, anxiety and depression The patient was seen and examined this morning sitting up in bed on the medical surgical unit in no acute distress. States he is feeling better, does still have some chest pain with coughing he is taking [place] tens 4 times daily as well as 2 mg IV push Dilaudid every 4 hours. Patient remains on IV Zosyn for antibiotic coverage, all microbiology finalized negative, remains afebrile, WBC slightly elevated although patient had been started on IV steroids which has since been stopped. Remains on bronchodilators per pulmonology. He has been ambulating in the hallway, showering daily. Remains on 2 L nasal cannula with oxygen saturation in the mid 90s, able to achieve 1750 mL on his incentive spirometry. The patient was seen yesterday by Dr. Winston, our plan is for robotic assisted right middle lobectomy tomorrow afternoon by Dr. Winston. This was discussed in detail with the patient, he is in agreement. No other new concerns. Objective - Vital Signs Vital signs: Vital Signs Temp 98.1 F 02/28/24 07:29 Pulse 78 02/28/24 08:13 Resp 16 02/28/24 07:29 BP 147/86 02/28/24 07:29 Pulse Ox 95 02/28/24 08:03 FiO2 Intake & Output 02/27/24 02/28/24 02/28/24 18:59 06:59 18:59 Intake Total 120 1920 Output Total 600 1650 Balance -480 270 Intake: Oral 120 1920 Output: Urine 600 1650 Other: Voiding Method Urinal # Voids 2 4 2 # Bowel Movements 1 - Exam CONSTITUTIONAL: Appears comfortable, cooperative, no acute distress RESPIRATORY: Lungs sounds diminished bilaterally. Respirations even, nonlabored. Currently on 2 L nasal cannula with oxygen saturation 95%. Able to achieve 1750 mL on incentive spirometry. Strong productive cough, brown sputum CARDIOVASCULAR: S1, S2 present. Regular rate and rhythm. Palpable peripheral pulses bilaterally. Bilateral lower extremity pitting edema present. No calf pain or tenderness noted. Antiembolism stockings, SCDs present. GASTROINTESTINAL: Abdomen soft, nontender, nondistended. Active bowel sounds present 4 quadrants. Tolerating diet. Positive bowel movement this morning per patient GENITOURINARY: Continues to void INTEGUMENTARY: Skin is warm and dry NEUROLOGIC: Cranial nerves II through XII intact MUSKULOSKELETAL: Able to move all extremities, strength equal bilaterally, gait normal PSYCHIATRIC: Alert and oriented to person place and time, appropriate affect, intact judgment and insight - Allied health notes Allied health notes reviewed: nursing - Labs CBC & Chem 7: 02/27/24 03:04 02/27/24 03:04 Labs: Abnormal Lab Results - Last 24 Hours (Table) 02/22/24 02/27/24 Range/Units 11:25 03:04 Glucose 165 H (70-110) mg/dL Calcium 8.6 L (8.7-10.3) mg/dL Fluid Appearance Turbid A (Clear) Fluid RBC 03215 H (0-2000) /uL Microbiology - Last 24 Hours (Table) 02/22/24 11:25 Gram Stain - Final Bronchoalviolar Lavage - Right Bronchial Washings Culture - Final Assessment and Plan Assessment: Acute hypoxic respiratory failure secondary to acute infection in the right middle lobe Right midlung consolidation, right middle lobe syndrome with secondary pneumonia, status post bronchoscopy performed on 02/11/2024 and 02/22/24, atelectatic narrowed right middle lobe bronchus with evidence of bronchomalacia and anatomic distortion secondary to a previous right upper lobe resection. Leukocytosis secondary to above, resolved Hyponatremia, resolved History of squamous cell carcinoma, status post wedge resection followed by completion right upper lobectomy Paroxysmal atrial fibrillation, on Eliquis as an outpatient, discontinued this admission Chronic obstructive pulmonary disease Chronic back pain on chronic narcotics History of tobacco dependence with recent cessation in December 2023 Benign prostatic hypertrophy Obesity Anxiety Depression Plan: Our plan is for robotic assisted right middle lobectomy February 29, [address] Winston. N.p.o. after midnight. Continue chest physical therapy, every 4 hours, continue to encourage use of flutter valve Antibiotics, bronchodilators, per pulmonology Continue Mucomyst and Mucinex Wean oxygen as tolerated. Encourage use of incentive spirometry 10 times every hour while awake Continue to monitor daily chest x-rays Pain control per internal medicine Continue amiodarone 200 mg p.o. daily x 7 days, continue Lopressor Increase activity, ambulate as tolerated, shower daily Continue knee-high MICHAEL hose during the day GI/DVT prophylaxis Medical management other comorbidities per primary care service More recommendations to follow based on patient's clinical course
--- NOTE | 2024-02-28 14:52 | P.PN ---
Subjective Progress Note Date: 02/28/24 This is a very pleasant 63-year-old male patient with a known history of chronic and ongoing tobacco dependence of 48 years, chronic obstructive pulmonary disease, chronic back pain, atrial fibrillation. He also has a history of a solitary right upper lobe pulmonary nodule that was positive for squamous cell carcinoma based on a previous wedge resection in December 2023. He was brought back into the hospital for a robotically assisted right upper lobe lobectomy on February 09, 2024. During that hospitalization he was found to have a right middle lobe collapse and had undergone bronchoscopy with BAL. No endobronchial lesions or mucous was identified. He was discharged home on February 13, 2024. He was seen in the emergency department on February 17, 2024 for increasing shortness of breath cough and congestion. He was given azithromycin and discharged to home. He returned to the emergency room again the following day February 18, 2024 with similar symptoms that seem to be worsening. He had a hard time sleeping and was having right sided chest pain. Increased mucus. Chest x-ray shows similar findings of a large predominant right perihilar opacity. Stable small right apical hydropneumothorax. Small increasing right pleural effusion. White count 16.6. Hemoglobin 10.7. Platelets 552. Sodium 127. Potassium 5.1. Bicarb 24. BUN 20. Creatinine 0.98. Glucose 104. Viral screen negative. He is seen today in consultation on the regular medical floor. He is currently sitting up in bed. Awake and alert in no acute distress. He is quite weak. He is maintaining O2 saturations in the low 90s on room air. 02/20/2024, the patient is being seen for a follow-up. Patient is post right upper lobectomy for non-small cell lung cancer. 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 The patient has a persistent atelectasis/pneumonia of the right middle lobe. Currently, the patient is hospitalized for worsening shortness of breath. Procalcitonin level is 0.47. Electrolytes are all within normal range with a BUN of 15 and a creatinine of 0.9. The white cell count is at 15.4 with a hemoglobin of 10.4 and a platelet count of 406. The right upper lobe resection was done on 02/10/2024 and it is consistent with benign lung without any residual malignancy. The lymph nodes are also negative for malignancy. The patient is currently on IV Rocephin. The patient is also on Symbicort as maintenance 2 puffs twice a day and IV fluids with normal saline at rate of 75 cc an hour. He is receiving nebulized albuterol 4 times a day. He is oxygen requirements are at 6 L with a pulse ox of 99% On 02/21/2024, the patient is being seen for a follow-up. The patient is on 5 L of oxygen by nasal cannula and the patient is pulse oxing 91%. Continues to have a congested cough. The blood culture was negative. The sputum sample was negative. The patient's white cell count is at 14 with a hemoglobin 9.9 and a platelet count of 658. BUN is 15 with a creatinine of 0.8 and sodium levels at 134. Remains on Ventolin nebulized treatments, Symbicort maintenance and IV Rocephin. The plan is to repeat the patient's bronchoscopy in a.m. and to reevaluate the right middle lobe bronchus. The chest x-ray from today is essentially unchanged. There is a masslike opacity in the right hilum which is probably an atelectatic right middle lobe. On 02/22/2024, patient is being seen for a follow-up. Earlier this morning, the patient was having significant respiratory distress and cough and congestion. He has required higher oxygen flow at 5 L/min nasal cannula with a pulse ox of 95%. Based on that, a CAT scan of the chest was completed this morning without contrast and the CAT scan showed right upper lobectomy, a cavity was seen in the right suprahilar area with a atelectatic right middle lobe consistent with right middle lobe syndrome, /consolidation/groundglass changes and the patient also had some groundglass opacities in the left upper lobe. Airspace disease also seen in the right with an air-fluid level within the cavity. Small right-sided pleural effusion was noted based on those findings, a bronchoscopy was performed today and as expected, the patient had significant narrowing of the right middle lobe bronchus. There was evidence of bronchomalacia. I was able to pass the bronchoscope to the right middle lobe bronchus and visualize the right middle lobe and right lower lobe. Therapeutic airway suctioning was done. 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 Based on those findings, the patient was started on IV Zosyn and antibiotic modification was done. He seems to be much more comfortable post bronchoscopy. He has been placed on anticoagulation regarding paroxysmal atrial fibrillation. His current rhythm has remained sinus and the patient will be taken off the anticoagulation. The sodium levels at 133, BUN 13 with a creatinine 0.8. The white cell count from yesterday was at 14.4 with a hemoglobin 9.9. The procalcitonin level is at 0.47. On 02/23/2024, the patient is being seen for a follow-up. The patient is post bronchoscopy was done yesterday and please refer to the documented report. Repeat chest x-ray was also done today and the patient's findings are es sentially stable. There is a right suprahilar opacity which remains essentially unchanged and area of atelectatic/infected right middle lobe. Meanwhile, the patient remains on IV Zosyn. The white cell count is down to 11.7. Hemoglobin is stable at 9.0 and the patient was taken off the anticoagulation. Electrolytes are stable. BUN is 12 with a creatinine of 0.8. Awaiting the results of the bronchial lavage. Oxygenation is also stable and the patient remains on 5 L of oxygen by nasal cannula with a pulse ox of 98%. He is sitting up to bedside chair. He is awake and alert. Denies having any pain. He does report some ongoing shortness of breath and a congested cough. He gets short of breath with activity. He is afebrile for now. On today's evaluation of 02/24/2024, the patient is feeling better. His oxygenation is improved and the patient is currently down to 3 L of oxygen nasal cannula with pulse ox of 94%. A follow-up chest x-ray from today shows essentially normal interval change and there is volume loss and right midlung atelectasis/consolidation in addition to a right apical pneumothorax. There is ongoing diffuse groundglass pulmonary filtrates and small right-sided pleural effusion. Bronchoscopy and bronchial lavage was done. Cultures are still pending for now. There is polymicrobial on the Gram stain including few gram- positive cocci and rare gram-negative bacilli. The patient remains on IV Zosyn. The patient remains on Symbicort and DuoNeb the regiment [id number]. The patient is on Symbicort. No issues with pain. Cough and congestion has subsided. Cardiac rhythm is a sinus. The white cell count is 11 with a hemoglobin of 9 and a platelet count of 640. Electrolytes are all within normal limits. BUN is 12 with a creatinine 0.8. On 02/25/2024, the patient is feeling better. Less short of breath. Less bronchospastic and wheezy. He has been weaned down to 2 L of oxygen by nasal cannula. Bronchoscopy endobronchial lavage is not yielded any microbial growth. The patient has responded nicely to IV Zosyn. DuoNeb nebulized treatments [id number]. Cough and congestion has subsided significantly. Repeat chest x-ray was done today and essentially there is no significant interval change. Small right-sided pleural effusion is seen. On today's evaluation of 02/26/2024, the patient is feeling better. Cough and congestion has subsided significantly. Cultures from the bronchioloalveolar lavage has been negative. The patient remains on IV Zosyn. He is currently on oxygen at 2 L/min nasal cannula. He remains on bronchodilators and steroids. Labs show a white cell count of 7.7 with a hemoglobin 9 and a platelet count of 710. Electrolytes are all within normal limits. Troponins are negative. The patient is seen today February 27, 2024 in follow-up on the regular medical floor. He is currently sitting up in a chair at the bedside. Awake and alert in no acute distress. He is maintaining O2 saturations in the 90s on 2 L/min per nasal cannula. He is afebrile. Hemodynamically stable. Chest x-ray continues to show ongoing masslike right perihilar opacity measuring up to 3.7 cm. Redemonstrated air-fluid level within the inferior aspect of the opacity. This is mostly the right middle lobe volume loss. Sputum and blood cultures revealed no growth. Bronchial wash cultures revealed no growth. White count 12.6. Hemoglobin 9.1. Platelets 696. Sodium 137. Potassium 4.5. Bicarb 27. BUN 10. Creatinine 0.8. Glucose 166. He remains on DuoNeb inhalations, Symbicort, Solu-Medrol. Antibiotics in the form of Zosyn. Heparin for DVT prophylaxis. The patient is seen today February 28, 2024 in follow-up on the regular medical floor. He is currently awake and alert in no acute distress. Sitting up in a chair at the bedside. Maintaining good O2 saturations in the 90s on 2 L/min per nasal cannula. He has been afebrile. Hemodynamically stable. Bronchial wash cultures from 02/22/2024 revealed no growth. Blood cultures revealed no growth. Sputum culture revealed no growth. He remains on DuoNeb inhalations, Symbicort, Mucinex. Antibiotics in the form of Zosyn. Objective - Vital Signs Vital signs: Vital Signs Temp 97.6 F 02/28/24 14:00 Pulse 70 02/28/24 14:00 Resp 18 02/28/24 14:00 BP 109/62 02/28/24 14:00 Pulse Ox 95 02/28/24 14:00 FiO2 Intake & Output 02/27/24 02/28/24 02/28/24 18:59 06:59 18:59 Intake Total 120 1920 Output Total 600 1650 Balance -480 270 Intake: Oral 120 1920 Output: Urine 600 1650 Other: Voiding Method Urinal # Voids 2 4 2 # Bowel Movements 1 - Exam GENERAL EXAM: Alert, very pleasant 63-year-old male, up in a chair, on 2 L nasal cannula, comfortable in no apparent distress. HEAD: Normocephalic. EYES: Normal reaction of pupils, equal size. NOSE: Clear with pink turbinates. THROAT: No erythema or exudates. NECK: No masses, no JVD. CHEST: No chest wall deformity. LUNGS: Equal air entry with scattered rhonchi more so on the right, diminished. CVS: S1 and S2 normal with no audible murmur, regular rhythm. ABDOMEN: No hepatosplenomegaly, normal bowel sounds, no guarding or rigidity. SPINE: No scoliosis or deformity SKIN: No rashes CENTRAL NERVOUS SYSTEM: No focal deficits, tone is normal in all 4 extremities. EXTREMITIES: There is no peripheral edema. No clubbing, no cyanosis. Peripheral pulses are intact. - Labs CBC & Chem 7: 02/27/24 03:04 02/27/24 03:04 Assessment and Plan Assessment: Acute hypoxemic respiratory failure secondary to right lung cavity with an atelectatic/consolidated right middle lobe in addition to development of groundglass pulmonary filtrates bilaterally more so on the left upper lobe area. The chest x-ray findings are stable and the patient is post bronchoscopy and the bronchoalveolar lavage of the right middle lobe. Cultures revealed no growth. Remains on Zosyn. Follow-up chest x-ray is essentially unchanged. Groundglass changes bilaterally including the left upper lobe. The bronchioloalveolar lavage was negative for any microbial growth. Plan is for a right middle lobectomy on 02/29/2024 Leukocytosis secondary to above Recent discharge February 13, 2024 following a robotically assisted right upper lobectomy, for stage I bronchogenic carcinoma, squamous cell, T1b, N0 M0 Atrial fibrillation with RVR, post lobectomy Right middle lobe atelectasis, status post bronchoscopy, February 11, 2024 Prior wedge resection, right upper lobe solitary pulmonary nodule, which was positive for squamous cell carcinoma, December 27, 2023 Chronic and ongoing tobacco dependence of 48 years COPD Chronic back pain Plan: The patient was seen and evaluated Medications reviewed Currently stable and on 2 L nasal cannula Working well with the incentive spirometer Plan is for right middle lobectomy on 02/29/2024 Steroids discontinued Continue bronchodilators, Zosyn Heparin for DVT prophylaxis We will continue to follow I have personally seen and examined the patient, performed the documentation and the assessment and plan as written. Number of minutes spent on the visit: 10. Dictation was produced using [employer] software. Please excuse any grammatical, word or spelling errors.
--- NOTE | 2024-02-28 15:27 | P.PN ---
Subjective Progress Note Date: 02/28/24 H&P Date: 02/19/24 Chief Complaint: Cough, diaphoresis, shortness of breath Brian is a 63-year-old white male with known squamous cell carcinoma. He had underwent a mediastinal lymph node dissection and wedge resection of the lung on December 27, 2023. He returned back and February 08 for a right upper lobe lobectomy. While here he had collapse of the right middle lung and underwent a bronchoscopy and bronc and BAL. He developed a complication of paroxysmal atrial fibrillation during his stay. He did improve and was sent home in stable condition. He returned emergency room on 1121 with shortness of breath and cough was sent home. He returned again on 02/18/2024 with worsening symptoms. Found to have a leukocytosis coughing and not feeling well. Also complaining of left-sided chest pain and right-sided chest pain at his surgical site. This morning he isb in sinus rhythm per telemetry heart rates controlled in the 80s O2 saturation 93% on room air. Laboratory studies now show a leukocytosis 16 6 hemoglobin 10.7 and a left shift with the neutrophils at 14,600. Blood chemistries do show a hyponatremia with a sodium 127 chloride 95, calcium is 7.9. Total protein is 6.2 with a albumin of 3.2. 02/20/2024: Brian was reevaluated for his right middle lobe pneumonia. Vital signs show he is afebrile heart rate and respiratory rate blood pressure control. He is on 6 L of O2 via nasal cannula. WBC count is improved now 15.4, hemoglobin 10.4 neutrophils are 14.23, chemistries show sodium 133. Sputum and blood cultures pending. 02/21/2024: Parents feeling slightly better today. He is being treated for his right middle lobe pneumonia. His regular lobe and collapsed after his right upper lobe surgical assisted lobectomy. He remains on ceftriaxone and azithromycin for antibiotics apixaban for anticoagulation acetylcysteine and guaifenesin for mucus production. He is on Symbicort and Atrovent for inhalation therapy at this time. 02/22/2024: Patient could not be seen today as he was down for his bronchoscopy. Labs and chart are reviewed today. Patient remains on Zosyn. He has Eliquis for anticoagulation. He has DuoNeb updrafts or shortness of breath is on Mucomyst and Symbicort. 02/23/2024 patient awake alert oriented 3 complains of chest pain dyspnea 02/24/2024 patient awake alert oriented 3 complains of chest pain dyspnea, status post lung resection 02/25/2024 Patient awake alert oriented 3 vital signs are stable patient is afebrile, patient has been complaining of intermittent chest discomfort, EKG no acute changes' 02/26/2024 Patient awake alert oriented 3 vital signs are stable patient is currently afebrile, no new chest pain today 02/27/24 continues on Zosyn, nebulized bronchodilators, afebrile, WBC 12.66. , Bronch ,sputum and blood cultures reporting negative.ambulated in the hallway earlier this morning, tolerated exertion well. Currently sitting up in chair, maintaining O2 sats in the mid 90s on 2 L nasal cannula. Chest x-ray reporting ongoing masslike right perihilar opacity measuring up to 3.7 cm. Redemonstrated air-fluid level within the inferior aspect of the opacity. Interstitial density in the left lung shows some improvement. Reports chest pain with coughing , receiving [place] scheduled and Dilaudid prn.CTS consulted, recommendations pending. Hemoglobin 9.1, platelets 696 .renal function stable. 02/28/2024 evaluated by CTS and patient is scheduled for right mid lobe lobectomy tomorrow. Complains of left upper molar caries with fracture, Peridex mouthwash ordered. Afebrile, maintained on Zosyn, nebulized bronchodilators, Symbicort and Mucinex. O2 sats in the 90s on 2 L nasal cannula. Objective - Vital Signs Vital signs: Vital Signs Temp 97.6 F 02/28/24 14:00 Pulse 70 02/28/24 14:00 Resp 18 02/28/24 14:00 BP 109/62 02/28/24 14:00 Pulse Ox 95 02/28/24 14:00 FiO2 Intake & Output 02/27/24 02/28/24 02/28/24 18:59 06:59 18:59 Intake Total 120 1920 Output Total 600 1650 Balance -480 270 Intake: Oral 120 1920 Output: Urine 600 1650 Other: Voiding Method Urinal # Voids 2 4 2 # Bowel Movements 1 - Exam General: Sitting up in chair, alert and oriented times 3,no acute distress.] HEENT: [PERRL. EOMI. No pharyngeal erythema or exudate.] Neck: Supple, no JVD Cardiac: [Heart regular in rate and rhythm. No S3. No S4. No clicks, rubs. No murmur.] Lungs: Unlabored, equal air entry, diminished with scattered rhonchi ,greatest on right Abdomen: Soft, nontender, nondistended, no organomegaly. Positive bowel sounds. Extremes: [Decreased pitting edema, no cyanosis no claudication normal pulses, wearing teds.] Skin: [Warm and dry, no rash noted.] Neurologic: CN II - XII grossly intact.] Microbiology 02/22/24 11:25 Bronchoalviolar Lavage - Right Gram Stain - Final 02/22/24 11:25 Bronchoalviolar Lavage - Right Bronchial Washings Culture - Final 02/18/24 15:35 Blood Blood Culture - Final 02/18/24 15:52 Blood Blood Culture - Final 02/19/24 11:51 Sputum Legionella Culture - Preliminary 02/18/24 22:17 Sputum Gram Stain - Final 02/18/24 22:17 Sputum Sputum Culture - Final - Labs CBC & Chem 7: 02/27/24 03:04 02/27/24 03:04 Assessment and Plan Assessment: Acute hypoxic respiratory failure, positive groundglass changes bilaterally, chest x-ray reporting ongoing masslike right perihilar opacity measuring up to 3.7 cm. Redemonstrated air-fluid level within the inferior aspect of the opacity. Interstitial density in the left lung shows some improvement. Recent lobectomy of right upper lung secondary to Squamous cell lung CA, discharged 02/12 Leukocytosis Right middle lobe atelectasis status post bronchoscopy 02/11/2024. Bronchial lavage cultures reporting negative Paroxysmal atrial fibrillation with RVR, new onset- post lobectomy Chronic nicotine dependence COPD Chronic back pain BPH Anxiety Depression Obesity, BMI 32 Plan: Continue on current medication regimen ,monitoring and symptomatic treatme nt. Maintain aggressive pulmonary toileting with incentive spirometer reinforced, nebulized bronchodilators , IV steroids, LABA and antibiotics. Scheduled for right middle lobectomy tomorrow with CTS. The impression and plan of care has been dictated as directed. : I performed a history and examination of this patient, discussed the same with the dictator. I agree with the dictator's note ,documented as a scribe. Any additional findings or plans will be noted.
[2024-02-28] MEDS: CHLORHEXIDINE GLUCONATE 15 ML CUP MUCOUS MEM SCH (23:14)
[2024-02-29] MEDS ORDERED: LIDOCAINE 1% (10MG/ML) FOR IV START INTRADERMA PRN (03:23)
[2024-02-29] MEDS: LACTATED RINGERS 1,000 ML IV SCH (04:43)
[2024-02-29 07:33] LABS: HCT 32.9 % (39.0-53.0); HGB 10.2 gm/dL (13.0-17.5); Hypochromasia Slight; MCH 28.2 pg (25.0-35.0); MCHC 31.1 g/dL (31.0-37.0); MCV 90.6 fL (80.0-100.0); Mean Platelet Volume 7.2; Platelet Count 735 k/uL (150-450); RBC 3.63 m/uL (4.30-5.90); RDW 14.4 % (11.5-15.5); WBC 11.7 k/uL (3.8-10.6)
[2024-02-29 07:37] LABS: Partial Thromboplastin Time 22.9 sec (22.0-30.0); Prothrombin Time 10.6 sec (10.0-12.5)
[2024-02-29 07:51] LABS: African American GFR (CKD) >90 (>60 ml/min/1.73 sqM); Anion Gap 6 mmol/L; Blood Urea Nitrogen 12 mg/dL (9-20); Calcium 8.3 mg/dL (8.4-10.2); Carbon Dioxide 32 mmol/L (22-30); Chloride 99 mmol/L (98-107); Glucose 84 mg/dL (74-99); Non-African American GFR(CKD) 83 (>60 ml/min/1.73 sqM); Sodium 137 mmol/L (137-145)
--- NOTE | 2024-02-29 09:09 | XR ---
EXAMINATION TYPE: XR chest 2V DATE OF EXAM: 02/29/2024 6:19 AM COMPARISON: 02/27/2024 CLINICAL INDICATION: Male, 63 years old with history of preop RML lobectomy, , TECHNIQUE: PA and lateral views FINDINGS: Heart normal size. Mild hyperinflation. Ongoing masslike right hilar opacity with small air-fluid lev el within the inferior aspect. Interstitial density persists throughout the left lung. Post surgical volume loss again noted right hemithorax. IMPRESSION: 1. Ongoing masslike right hilar opacity with small air-fluid level along the inferior margin of the d ensity. Postsurgical volume loss right hemithorax. 2. Similar ongoing mild interstitial density throughout the left lung. [facility], , 02/29/2024 9:06 AM
[2024-02-29] MEDS: HYDROmorphone 1 MG/ML 1 ML SYRINGE IVP PRN (11:22)
[2024-02-29] MEDS: IV FLUID CONTINUATION 900 ML IV ONE (12:16)
[2024-02-29] MEDS: ONDANSETRON 4 MG/2 ML VIAL IVP ONE (12:35)
[2024-02-29] MEDS ORDERED: fentaNYL (PF) 50 MCG/ML 2 ML AMP IVP PRN (13:00)
--- NOTE | 2024-02-29 13:10 | P.ANPRN ---
Procedure Note - Anesthesia - Invasive Line Right Arterial Line Time Out Performed: Yes Date of Procedure: 02/29/24 Time of Procedure: 12:46 Location of Patient: PreOp Preparation: Sterile Prep, Sterile Dressing Arterial Line Location: Radial Ultrasound Used: No Purpose - Visualization and Identification of Vasculature: No Image Stored and Saved: No Narrative: Invasive line placement per sterile protocol utilized.
--- NOTE | 2024-02-29 13:15 | P.PN ---
Subjective Progress Note Date: 02/29/24 Principal diagnosis: Acute hypoxic respiratory failure with atelectatic and consolidated right middle lobe This is a very pleasant 63-year-old male patient with a known history of chronic and ongoing tobacco dependence of 48 years, chronic obstructive pulmonary disease, chronic back pain, atrial fibrillation. He also has a history of a solitary right upper lobe pulmonary nodule that was positive for squamous cell carcinoma based on a previous wedge resection in December 2023. He was brought back into the hospital for a robotically assisted right upper lobe lobectomy on February 09, 2024. During that hospitalization he was found to have a right middle lobe collapse and had undergone bronchoscopy with BAL. No endobronchial lesions or mucous was identified. He was discharged home on February 13, 2024. He was seen in the emergency department on February 17, 2024 for increasing shortness of breath cough and congestion. He was given azithromycin and discharged to home. He returned to the emergency room again the following day February 18, 2024 with similar symptoms that seem to be worsening. He had a hard time sleeping and was having right sided chest pain. Increased mucus. Chest x-ray shows similar findings of a large predominant right perihilar opacity. Stable small right apical hydropneumothorax. Small increasing right pleural effusion. White count 16.6. Hemoglobin 10.7. Platelets 552. Sodium 127. Potassium 5.1. Bicarb 24. BUN 20. Creatinine 0.98. Glucose 104. Viral screen negative. He is seen today in consultation on the regular medical floor. He is currently sitting up in bed. Awake and alert in no acute distress. He is quite weak. He is maintaining O2 saturations in the low 90s on room air. 02/20/2024, the patient is being seen for a follow-up. Patient is post right upper lobectomy for non-small cell lung cancer. 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 The patient has a persistent atelectasis /pneumonia of the right middle lobe. Currently, the patient is hospitalized for worsening shortness of breath. Procalcitonin level is 0.47. Electrolytes are all within normal range with a BUN of 15 and a creatinine of 0.9. The white cell count is at 15.4 with a hemoglobin of 10.4 and a platelet count of 406. The right upper lobe resection was done on 02/10/2024 and it is consistent with benign lung without any residual malignancy. The lymph nodes are also negative for malignancy. The patient is currently on IV Rocephin. The patient is also on Symbicort as maintenance 2 puffs twice a day and IV fluids with normal saline at rate of 75 cc an hour. He is receiving nebulized albuterol 4 times a day. He is oxygen requirements are at 6 L with a pulse ox of 99% On 02/21/2024, the patient is being seen for a follow-up. The patient is on 5 L of oxygen by nasal cannula and the patient is pulse oxing 91%. Continues to have a congested cough. The blood culture was negative. The sputum sample was negative. The patient's white cell count is at 14 with a hemoglobin 9.9 and a platelet count of 658. BUN is 15 with a creatinine of 0.8 and sodium levels at 134. Remains on Ventolin nebulized treatments, Symbicort maintenance and IV Rocephin. The plan is to repeat the patient's bronchoscopy in a.m. and to reevaluate the right middle lobe bronchus. The chest x-ray from today is essentially unchanged. There is a masslike opacity in the right hilum which is probably an atelectatic right middle lobe. On 02/22/2024, patient is being seen for a follow-up. Earlier this morning, the patient was having significant respiratory distress and cough and congestion. He has required higher oxygen flow at 5 L/min nasal cannula with a pulse ox of 95%. Based on that, a CAT scan of the chest was completed this morning without contrast and the CAT scan showed right upper lobectomy, a cavity was seen in the right suprahilar area with a atelectatic right middle lobe consistent with right middle lobe syndrome, /consolidation/groundglass changes and the patient also had some groundglass opacities in the left upper lobe. Airspace disease also seen in the right with an air-fluid level within the cavity. Small right-sided pleural effusion was noted based on those findings, a bronchoscopy was performed today and as expected, the patient had significant narrowing of the right middle lobe bronchus. There was evidence of bronchomalacia. I was able to pass the bronchoscope to the right middle lobe bronchus and visualize the right middle lobe and right lower lobe. Therapeutic airway suctioning was done. 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 Based on those findings, the patient was started on IV Zosyn and antibiotic modification was done. He seems to be much more comfortable post bronchoscopy. He has been placed on anticoagulation regarding paroxysmal atrial fibrillation. His current rhythm has remained sinus and the patient will be taken off the anticoagulation. The sodium levels at 133, BUN 13 with a creatinine 0.8. The white cell count from yesterday was at 14.4 with a hemoglobin 9.9. The procalcitonin level is at 0.47. On 02/23/2024, the patient is being seen for a follow-up. The patient is post bronchoscopy was done yesterday and please refer to the documented report. Repeat chest x-ray was also done today and the patient's findings are essentially stable. There is a right suprahilar opacity which remains essentially unchanged and area of atelectatic/infected right middle lobe. Meanwhile, the patient remains on IV Zosyn. The white cell count is down to 11.7. Hemoglobin is stable at 9.0 and the patient was taken off the anticoagulation. Electrolytes are stable. BUN is 12 with a creatinine of 0.8. Awaiting the results of the bronchial lavage. Oxygenation is also stable and the patient remains on 5 L of oxygen by nasal cannula with a pulse ox of 98%. He is sitting up to bedside chair. He is awake and alert. Denies having any pain. He does report some ongoing shortness of breath and a congested cough. He gets short of breath with activity. He is afebrile for now. On today's evaluation of 02/24/2024, the patient is feeling better. His oxygenation is improved and the patient is currently down to 3 L of oxygen nasal cannula with pulse ox of 94%. A follow-up chest x-ray from today shows essentially normal interval change and there is volume loss and right midlung atelectasis/consolidation in addition to a right apical pneumothorax. There is ongoing diffuse groundglass pulmonary filtrates and small right-sided pleural effusion. Bronchoscopy and bronchial lavage was done. Cultures are still pending for now. There is polymicrobial on the Gram stain including few gram- positive cocci and rare gram-negative bacilli. The patient remains on IV Zosyn. The patient remains on Symbicort and DuoNeb the regiment [id number]. The patient is on Symbicort. No issues with pain. Cough and congestion has subsided. Cardiac rhythm is a sinus. The white cell count is 11 with a hemoglobin of 9 and a platelet count of 640. Electrolytes are all within normal limits. BUN is 12 with a creatinine 0.8. On 02/25/2024, the patient is feeling better. Less short of breath. Less bronchospastic and wheezy. He has been weaned down to 2 L of oxygen by nasal cannula. Bronchoscopy endobronchial lavage is not yielded any microbial growth. The patient has responded nicely to IV Zosyn. DuoNeb nebulized treatments [id number]. Cough and congestion has subsided significantly. Repeat chest x-ray was done today and essentially there is no significant interval change. Small right-sided pleural effusion is seen. On today's evaluation of 02/26/2024, the patient is feeling better. Cough and congestion has subsided significantly. Cultures from the bronchioloalveolar lavage has been negative. The patient remains on IV Zosyn. He is currently on oxygen at 2 L/min nasal cannula. He remains on bronchodilators and steroids. Labs show a white cell count of 7.7 with a hemoglobin 9 and a platelet count of 710. Electrolytes are all within normal limits. Troponins are negative. The patient is seen today February 27, 2024 in follow-up on the regular medical floor. He is currently sitting up in a chair at the bedside. Awake and alert in no acute distress. He is maintaining O2 saturations in the 90s on 2 L/min per nasal cannula. He is afebrile. Hemodynamically stable. Chest x-ray continues to show ongoing masslike right perihilar opacity measuring up to 3.7 cm. Redemonstrated air-fluid level within the inferior aspect of the opacity. This is mostly the right middle lobe volume loss. Sputum and blood cultures revealed no growth. Bronchial wash cultures revealed no growth. White count 12.6. Hemoglobin 9.1. Platelets 696. Sodium 137. Potassium 4.5. Bicarb 27. BUN 10. Creatinine 0.8. Glucose 166. He remains on DuoNeb inhalations, Symb icort, Solu-Medrol. Antibiotics in the form of Zosyn. Heparin for DVT prophylaxis. The patient is seen today February 28, 2024 in follow-up on the regular medical floor. He is currently awake and alert in no acute distress. Sitting up in a chair at the bedside. Maintaining good O2 saturations in the 90s on 2 L/min per nasal cannula. He has been afebrile. Hemodynamically stable. Bronchial wash cultures from 02/22/2024 revealed no growth. Blood cultures revealed no growth. Sputum culture revealed no growth. He remains on DuoNeb inhalations, Symbicort, Mucinex. Antibiotics in the form of Zosyn. Patient was seen today on 03/20, patient is doing well, relatively asymptomatic, scheduled for right middle lobectomy sometime later today. In the meantime the patient is doing well, no cough no wheezing no shortness of breath, remains on Zosyn. Remains on bronchodilators. WBC count today is 11.7 hemoglobin 10.2 electrolytes are normal renal profile is normal Objective - Vital Signs Vital signs: Vital Signs Temp 98.4 F 02/29/24 12:20 Pulse 76 02/29/24 12:20 Resp 20 02/29/24 12:20 BP 142/69 02/29/24 12:20 Pulse Ox 93 L 02/29/24 12:20 FiO2 Intake & Output 02/28/24 02/29/24 02/29/24 18:59 06:59 18:59 Intake Total 0 Output Total 600 375 Balance -600 -375 Weight 98.9 kg Intake: Oral 0 Output: Urine 600 375 Other: Voiding Method Urinal Urinal # Voids 4 3 # Bowel Movements 1 - Exam GENERAL EXAM: Alert, in no distress Head: Atraumatic normocephalic EYES: Normal reaction of pupils, equal size. NOSE: Clear with pink turbinates. THROAT: No erythema or exudates. NECK: No masses, no JVD. CHEST: No chest wall deformity. LUNGS: Good breath sound bilaterally no rhonchi no wheezes CVS: S1 and S2 normal with no audible murmur, regular rhythm. ABDOMEN: No hepatosplenomegaly, normal bowel sounds, no guarding or rigidity. SKIN: No rashes CENTRAL NERVOUS SYSTEM: No focal deficits, tone is normal in all 4 extremities. EXTREMITIES: There is no peripheral edema. No clubbing, no cyanosis. Peripheral pulses are intact. - Labs CBC & Chem 7: 02/29/24 05:35 02/29/24 05:35 Labs: Abnormal Lab Results - Last 24 Hours (Table) 02/29/24 02/29/24 Range/Units 05:35 05:35 WBC 11.7 H (3.8-10.6) k/uL RBC 3.63 L (4.30-5.90) m/uL Hgb 10.2 L (13.0-17.5) gm/dL Hct 32.9 L (39.0-53.0) % Plt Count 735 H (150-450) k/uL Carbon Dioxide 32 H (22-30) mmol/L Calcium 8.3 L (8.4-10.2) mg/dL Assessment and Plan Assessment: Impression: Acute hypoxemic respiratory failure secondary to right lung cavity with an atelectatic/consolidated right middle lobe in addition to development of groundglass pulmonary filtrates bilaterally more so on the left upper lobe area. The chest x-ray findings are stable and the patient is post bronchoscopy and t he bronchoalveolar lavage of the right middle lobe. Cultures revealed no growth. Remains on Zosyn. Follow-up chest x-ray is essentially unchanged. Groundglass changes bilaterally including the left upper lobe. The bronchioloalveolar lavage was negative for any microbial growth. Plan is for a right middle lobectomy on 02/29/2024 Leukocytosis secondary to above Recent discharge February 13, 2024 following a robotically assisted right upper lobectomy, for stage I bronchogenic carcinoma, squamous cell, T1b, N0 M0 Atrial fibrillation with RVR, post lobectomy Right middle lobe atelectasis, status post bronchoscopy, February 11, 2024 Prior wedge resection, right upper lobe solitary pulmonary nodule, which was positive for squamous cell carcinoma, December 27, 2023 Chronic and ongoing tobacco dependence of 48 years COPD Chronic back pain Recommendation: Continue present supportive care measures Continue bronchodilators Continue antibiotics Continue GI DVT prophylaxis Scheduled for lobectomy today. Will follow postoperatively. Time with Patient: Less than 30
[2024-02-29] MEDS ORDERED: SUCCINYLCHOLINE CHLORIDE 200 MG/10 ML VIAL IV ONE (13:58)
[2024-02-29] MEDS ORDERED: KETAMINE HCL IN 0.9 % NACL 50 MG/5 ML SYRINGE ONE (13:58)
[2024-02-29] MEDS ORDERED: PHENYLEPHRINE 10 MG/ML VIAL ONE (13:58)
[2024-02-29] MEDS ORDERED: NEOSTIGMINE 1 MG/ML 10 ML VIAL ONE (13:58)
[2024-02-29] MEDS ORDERED: MIDAZOLAM 2 MG/2 ML VIAL ONE (13:58)
[2024-02-29] MEDS ORDERED: LIDOCAINE 1% INJ 10MG/ML (20 ML MDV) ONE (13:58)
[2024-02-29] MEDS ORDERED: GLYCOPYRROLATE 0.2 MG/ML 2 ML VIAL ONE (13:58)
[2024-02-29] MEDS ORDERED: PROPOFOL 10 MG/ML 20 ML VIAL IV ONE (13:58)
[2024-02-29] MEDS ORDERED: fentaNYL (PF) 50 MCG/ML 2 ML AMP ONE (13:58)
[2024-02-29] MEDS ORDERED: HYDROmorphone (PF) 1 MG/ML ONE (13:58)
[2024-02-29] MEDS ORDERED: ALBUMIN HUMAN 5% (12.5gm) 250 ML BOTTLE IVPB ONE (13:58)
[2024-02-29] MEDS ORDERED: ROCURONIUM 10 MG/ML (5 ML VIAL) IV ONE (13:58)
[2024-02-29] MEDS: SODIUM CHLORIDE 0.9% 50 ML with ceFAZolin 2,000 MG IV ONE (14:35)
[2024-02-29] MEDS: LACTATED RINGERS 1,000 ML IV ONE ×3 (14:36→20:14)
[2024-02-29] MEDS: BUPIVACAINE (PF) 0.5% 30 ML VIAL SQ ONE (14:37)
--- NOTE | 2024-02-29 14:55 | P.PN ---
Subjective Progress Note Date: 02/29/24 H&P Date: 02/19/24 Chief Complaint: Cough, diaphoresis, shortness of breath Brian is a 63-year-old white male with known squamous cell carcinoma. He had underwent a mediastinal lymph node dissection and wedge resection of the lung on December 27, 2023. He returned back and February 08 for a right upper lobe lobectomy. While here he had collapse of the right middle lung and underwent a bronchoscopy and bronc and BAL. He developed a complication of paroxysmal atrial fibrillation during his stay. He did improve and was sent home in stable condition. He returned emergency room on 1121 with shortness of breath and cough was sent home. He returned again on 02/18/2024 with worsening symptoms. Found to have a leukocytosis coughing and not feeling well. Also complaining of left-sided chest pain and right-sided chest pain at his surgical site. This morning he isb in sinus rhythm per telemetry heart rates controlled in the 80s O2 saturation 93% on room air. Laboratory studies now show a leukocytosis 16 6 hemoglobin 10.7 and a left shift with the neutrophils at 14,600. Blood chemistries do show a hyponatremia with a sodium 127 chloride 95, calcium is 7.9. Total protein is 6.2 with a albumin of 3.2. 02/20/2024: Brian was reevaluated for his right middle lobe pneumonia. Vital signs show he is afebrile heart rate and respiratory rate blood pressure control. He is on 6 L of O2 via nasal cannula. WBC count is improved now 15.4, hemoglobin 10.4 neutrophils are 14.23, chemistries show sodium 133. Sputum and blood cultures pending. 02/21/2024: Parents feeling slightly better today. He is being treated for his right middle lobe pneumonia. His regular lobe and collapsed after his right upper lobe surgical assisted lobectomy. He remains on ceftriaxone and azithromycin for antibiotics apixaban for anticoagulation acetylcysteine and guaifenesin for mucus production. He is on Symbicort and Atrovent for inhalation therapy at this time. 02/22/2024: Patient could not be seen today as he was down for his bronchoscopy. Labs and chart are reviewed today. Patient remains on Zosyn. He has Eliquis for anticoagulation. He has DuoNeb updrafts or shortness of breath is on Mucomyst and Symbicort. 02/23/2024 patient awake alert oriented 3 complains of chest pain dyspnea 02/24/2024 patient awake alert oriented 3 complains of chest pain dyspnea, status post lung resection 02/25/2024 Patient awake alert oriented 3 vital signs are stable patient is afebrile, patient has been complaining of intermittent chest discomfort, EKG no acute changes' 02/26/2024 Patient awake alert oriented 3 vital signs are stable patient is currently afebrile, no new chest pain today 02/27/24 continues on Zosyn, nebulized bronchodilators, afebrile, WBC 12.66. , Bronch ,sputum and blood cultures reporting negative.ambulated in the hallway earlier this morning, tolerated exertion well. Currently sitting up in chair, maintaining O2 sats in the mid 90s on 2 L nasal cannula. Chest x-ray reporting ongoing masslike right perihilar opacity measuring up to 3.7 cm. Redemonstrated air-fluid level within the inferior aspect of the opacity. Interstitial density in the left lung shows some improvement. Reports chest pain with coughing , receiving [place] scheduled and Dilaudid prn.CTS consulted, recommendations pending. Hemoglobin 9.1, platelets 696 .renal function stable. 02/28/2024 evaluated by CTS and patient is scheduled for right mid lobe lobectomy tomorrow. Complains of left upper molar caries with fracture, Peridex mouthwash ordered. Afebrile, maintained on Zosyn, nebulized bronchodilators, Symbicort and Mucinex. O2 sats in the 90s on 2 L nasal cannula. 02/29/2024 NPO, sitting up in chair, right middle lobe lobectomy scheduled for early this afternoon. Denies chest pain, palpitations or shortness of breath. Maintaining O2 sats in the mid to high 90s on 2 L nasal cannula. continues on Zosyn, afebrile, WBC 11.7, hemoglobin 10.2, renal function and electrolytes within normal limits. Objective - Vital Signs Vital signs: Vital Signs Temp 98.6 F 02/29/24 07:56 Pulse 76 02/29/24 08:07 Resp 16 02/29/24 07:56 BP 137/70 02/29/24 07:56 Pulse Ox 97 02/29/24 07:56 FiO2 Intake & Output 02/28/24 02/29/24 02/29/24 18:59 06:59 18:59 Intake Total 0 Output Total 600 375 Balance -600 -375 Weight 98.9 kg Intake: Oral 0 Output: Urine 600 375 Other: Voiding Method Urinal # Voids 4 # Bowel Movements 1 - Exam General: Sitting up in chair, alert and oriented times 3,no acute distress.] HEENT: [PERRL. EOMI. No pharyngeal erythema or exudate.] Neck: Supple, no JVD Cardiac: [Heart regular in rate and rhythm. No S3. No S4. No clicks, rubs. No murmur.] Lungs: Unlabored, equal air entry, diminished. Abdomen: Soft, nontender, nondistended, no organomegaly. Positive bowel sounds. Extremes: No edema, no cyanosis no claudication normal pulses, wearing teds.] Skin: [Warm and dry, no rash noted.] Neurologic: CN II - XII grossly intact.] - Labs CBC & Chem 7: 02/29/24 05:35 02/29/24 05:35 Labs: Abnormal Lab Results - Last 24 Hours (Table) 02/29/24 02/29/24 Range/Units 05:35 05:35 WBC 11.7 H (3.8-10.6) k/uL RBC 3.63 L (4.30-5.90) m/uL Hgb 10.2 L (13.0-17.5) gm/dL Hct 32.9 L (39.0-53.0) % Plt Count 735 H (150-450) k/uL Carbon Dioxide 32 H (22-30) mmol/L Calcium 8.3 L (8.4-10.2) mg/dL Assessment and Plan Assessment: Acute hypoxic respiratory failure, positive groundglass changes bilaterally, chest x-ray reporting ongoing masslike right perihilar opacity measuring up to 3.7 cm. Redemonstrated air-fluid level within the inferior aspect of the opacity. Interstitial density in the left lung shows some improvement. Recent lobectomy of right upper lung secondary to Squamous cell lung CA, discharged 02/12 Leukocytosis Right middle lobe atelectasis status post bronchoscopy 02/11/2024. Bronchial lavage cultures reporting negative Paroxysmal atrial fibrillation with RVR, new onset- post lobectomy Chronic nicotine dependence COPD Chronic back pain BPH Anxiety Depression Obesity, BMI 32 Plan: Continue on current medication regimen ,monitoring and symptomatic treatment. NPO, right middle lobectomy scheduled for today.continue aggressive pulmonary toileting with incentive spirometer reinforced, nebulized bronchodilators , LABA and antibiotics. The impression and plan of care has been dictated as directed. : I performed a history and examination of this patient, discussed the same with the dictator. I agree with the dictator's note ,documented as a scribe. Any additional findings or plans will be noted.
[2024-02-29] MEDS: SODIUM CHLORIDE 0.9% 1,000 ML IV ONE (15:20)
[2024-02-29] MEDS ORDERED: METOCLOPRAMIDE 5 MG/ML 2 ML VIAL IVP PRN (17:36)
[2024-02-29] MEDS ORDERED: bisacodyL 10 MG SUPP RECTAL PRN (17:36)
[2024-02-29] MEDS: HYDROmorphone 0.5 MG/0.5 ML SYRINGE IVP PRN ×2 (18:24→18:36)
--- NOTE | 2024-02-29 18:24 | P.OP ---
Date of Procedure: 02/29/24 Preoperative Diagnosis: Middle lobe syndrome Postoperative Diagnosis: Same Procedure(s) Performed: Diagnostic thoracoscopy, open thoracotomy, right middle lobectomy, cryoablation of intercostal nerves VII through III Anesthesia: IOANA Surgeon: Pantera Winston Estimated Blood Loss (ml): 1,000 IV fluids (ml): 2,200 Urine output (ml): 700 Pathology: other (Right middle lobe) Condition: stable Disposition: ICU Indications for Procedure: 63-year-old male with history of previous right upper lobectomy for lung cancer. He developed severe pneumonia of the right middle lobe. Bronchoscopy demonstrated kinking of the right middle lobe bronchus consistent with middle lobe syndrome. Patient did not respond to conservative management. Lobectomy was therefore indicated. Operative Findings: Pleural space was densely adherent. There were loculated serous fluid collections at the base. Fissure between the upper and middle lobe was completely obliterated by dense adhesions. The hilum was also densely adherent. Description of Procedure: Patient was brought to the operating room placed supine on the operating table. He was intubated with a double-lumen endotracheal tube. This was positioned with fiberoptic bronchoscopy and secured. Patient was turned in the left lateral decubitus position. Right chest was sterilely prepped and draped after appropriate positioning. Incisions were made over the 2 lower previous robotic ports. On placing the 8 mm port in the midaxillary line, it was immediately evident that there were adhesions present in the pleural space. We began taking these down through the more proximal posterior incision but it quickly became evident that the adhesions were very dense and that we were to coming to fail at a minimally invasive approach. Ports were removed and the robot was not docked. A lateral thoracotomy was performed and we spared the serratus dividing the latissimus dorsi and entering the chest in the fifth interspace. Closer we got to the hilum the denser the adhesions became. It became necessary to increase the incision and divide the serratus in order to have adequate exposure. Eventually we got the majority of the adhesions down but the dissection in the hilum was still very difficult. We did identify pulmonary vein and pulmonary artery leading to the middle lobe but were unable to successfully dissect these vessels out adequately to divide them. We were however able to free up the middle lobe adequately to essentially wedge out the entire middle lobe using multiple firings of Endo PAYAM \black stapler. Following this hemostasis was obtained throughout. The lung was inflated and were noted to have minimal air leak. 2 chest tubes were placed through the initial ports and positioned anteriorly and posterior apically. They were secured with 0 Ethibond suture. Chest was irrigated with warm water and good hemostasis was noted. Rib blocks were performed at levels 3456 and 7 posteriorly using the cryoablation system. Ribs were then reapproximated with #1 Vicryl. The muscles were reapproximated with 0 Vicryl. Subcutaneous tissues with 2-0 Vicryl. Skin was closed with skin clips. Dry sterile dressings were applied. The patient was turned supine extubated and transferred to recovery in good condition.
--- NOTE | 2024-02-29 18:59 | XR ---
EXAMINATION TYPE: XR chest 1V DATE OF EXAM: 02/29/2024 CLINICAL HISTORY: Postoperative right middle lobectomy. TECHNIQUE: 2 frontal views of the chest are obtained. COMPARISON: Chest x-ray from earlier today FINDINGS: There is moderate size superior right apical pneumothorax with 2 right-sided chest tubes i n place. There is persistent right hilar now masslike opacity. Left lung shows increased interstitial markings diffusely. Suspect edema. Cardiac silhouette size is upper limits of normal. Osseous struct ures are intact. IMPRESSION: Moderate size superior right apical pneumothorax with 2 right apical chest tubes in place . [facility], , 02/29/2024 6:57 PM
[2024-02-29] MEDS: ACETAMINOPHEN IV (For NPO) 1,000 MG in EMPTY BAG 1 BAG IVPB SCH (19:01)
[2024-02-29] MEDS: MIDAZOLAM 2 MG/2 ML VIAL IV PRN (19:11)
[2024-02-29] MEDS ORDERED: NALOXONE 0.4 MG/ML 1 ML VIAL IV PRN (19:29)
[2024-02-29 20:26] LABS: Glucose,Whole Blood 110 mg/dL (70-110)
[2024-02-29 21:03] LABS: HCT 28.5 % (39.0-53.0); HGB 9.5 gm/dL (13.0-17.5); Hypochromasia Slight; MCHC 33.5 g/dL (31.0-37.0); MCV 89.7 fL (80.0-100.0); Platelet Count 527 k/uL (150-450); Poikilocytosis Slight; RBC 3.18 m/uL (4.30-5.90); RDW 14.6 % (11.5-15.5); WBC 20.4 k/uL (3.8-10.6)
[2024-02-29 21:23] LABS: African American GFR (CKD) >90 (>60 ml/min/1.73 sqM); Anion Gap 3 mmol/L; Blood Urea Nitrogen 11 mg/dL (9-20); Calcium 7.6 mg/dL (8.4-10.2); Carbon Dioxide 26 mmol/L (22-30); Chloride 105 mmol/L (98-107); Glucose 103 mg/dL (74-99); Non-African American GFR(CKD) >90 (>60 ml/min/1.73 sqM); Potassium 3.9 mmol/L (3.5-5.1); Sodium 134 mmol/L (137-145)
[2024-02-29] MEDS: HYDROmorphone PCA 10 MG/50 ML BAG IV PRN (21:41)
[2024-02-29] MEDS: DEXTROSE 5%-0.45% NACL 1,000 ML IV SCH (21:44)
[2024-02-29] MEDS: PIPERACILLIN-TAZOBACTAM 3.375 GM in SODIUM CHLORIDE 0.9% 100 ML IVPB SCH (21:52)
[2024-03-01 01:53] LABS: Basophils # (A) 0.1 k/uL (0-0.2); Basophils % (A) 0 %; Eosinophils % (A) 0 %; HCT 28.9 % (39.0-53.0); HGB 9.6 gm/dL (13.0-17.5); Hypochromasia Slight; Lymphocytes # (A) 0.8 k/uL (1.0-4.8); Lymphocytes % (A) 4 %; MCH 29.8 pg (25.0-35.0); MCHC 33.1 g/dL (31.0-37.0); Monocytes # (A) 0.3 k/uL (0-1.0); Monocytes % (A) 2 %; Neutrophils # (A) 17.4 k/uL (1.3-7.7); Neutrophils % (A) 93 %; Platelet Count 472 k/uL (150-450); RBC 3.21 m/uL (4.30-5.90); RDW 14.7 % (11.5-15.5); WBC 18.7 k/uL (3.8-10.6)
[2024-03-01 04:38] LABS: Basophils % (A) 0 %; Eosinophils # (A) 0.1 k/uL (0-0.7); Eosinophils % (A) 0 %; HCT 28.6 % (39.0-53.0); HGB 9.5 gm/dL (13.0-17.5); Hypochromasia Slight; Lymphocytes # (A) 0.9 k/uL (1.0-4.8); Lymphocytes % (A) 5 %; MCH 29.9 pg (25.0-35.0); MCHC 33.2 g/dL (31.0-37.0); Mean Platelet Volume 7.5; Monocytes # (A) 0.5 k/uL (0-1.0); Monocytes % (A) 3 %; Neutrophils # (A) 15.5 k/uL (1.3-7.7); Neutrophils % (A) 90 %; Platelet Count 473 k/uL (150-450); Poikilocytosis Slight; RBC 3.18 m/uL (4.30-5.90); RDW 14.9 % (11.5-15.5); WBC 17.2 k/uL (3.8-10.6)
[2024-03-01 04:48] LABS: African American GFR (CKD) >90 (>60 ml/min/1.73 sqM); Anion Gap 2 mmol/L; Blood Urea Nitrogen 12 mg/dL (9-20); Calcium 7.4 mg/dL (8.4-10.2); Carbon Dioxide 24 mmol/L (22-30); Chloride 105 mmol/L (98-107); Glucose 144 mg/dL (74-99); Non-African American GFR(CKD) >90 (>60 ml/min/1.73 sqM); Sodium 131 mmol/L (137-145)
[2024-03-01] MEDS ORDERED: HYDROcodone/APAP 10-325MG 1 EACH TAB PO SCH (06:00)
--- NOTE | 2024-03-01 07:49 | P.PN ---
Subjective Progress Note Date: 03/01/24 Principal diagnosis: Recent right upper wedge resection/right upper lobectomy for squamous cell carcinoma, right middle lobe syndrome, pneumonia. Previous medical history of right upper lobe neoplasm with pathology consistent with squamous cell carcinoma status post robotic assisted thoracoscopic wedge resection right upper lobe mass with hilar and mediastinal lymph node dissection and subsequent robotic assisted thoracoscopic completion right upper lobectomy, paroxysmal atrial fibrillation on Eliquis for anticoagulation outpatient, COPD, obesity, previous tobacco dependence with recent cessation, chronic back pain with chronic narcotic dependency, benign prostatic hypertrophy, anxiety and depression POD #1 diagnostic thoracoscopy, open thoracotomy, right middle lobectomy, cryoablation of intercostal nerves VII through III The patient was seen and examined this morning sitting up in a recliner in the intensive care unit in no acute distress. The patient does state he feels okay except he does have quite a bit of pain to his right chest wall, denies shortness of breath. 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 Remains on IV Zosyn for antibiotic coverage, all microbiology finalized negative, remains afebrile. Remains on bronchodilators per pulmonology. Currently on 3 L nasal cannula with oxygen saturation in the mid 90s, able to achieve 1250 mL on his incentive spirometry. Patient in sinus rhythm on the monitor, hemodynamically stable with systolic pressures in the high 90s and mean arterial pressures 65 or greater. Medial and posterior right chest tubes present to continuous wall suction, air leak present in both with expiration. Chest x-ray, labs reviewed. No other new concerns. Objective - Vital Signs Vital signs: Vital Signs Temp 98.7 F 03/01/24 05:00 Pulse 64 03/01/24 07:00 Resp 12 03/01/24 07:00 BP 98/49 03/01/24 07:00 Pulse Ox 95 03/01/24 07:00 FiO2 Intake & Output 02/29/24 03/01/24 03/01/24 18:59 06:59 18:59 Intake Total 2860 4060 0 Output Total 2075 2535 160 Balance 785 1525 -160 Weight 98.9 kg 100 kg Intake: IV 2550 2300 0 Dextrose 5%-0.45% NaCl 1, 400 0 000 ml @ 40 mls/hr IV . Q24H [facility] Rx#:[id number] Intake, IV Titration 1200 Amount Lactated Ringers 1,000 ml 1000 @ 0 mls/hr IV .STK-MED ONE Rx#:[id number] Piperacillin-Tazobactam 3 200 .375 gm In Sodium Chloride 0.9% 100 ml @ 25 mls/hr IVPB Q8H [facility] Rx#: [id number] Oral 560 Blood Product 310 Rc As-1 Unit 310 [id number] Output: Chest Tube Drainage 1625 110 Chest Tube Right 360 50 Posterior Chest right posterior medial 1265 60 chest tube Urine 1075 910 50 Urine/Stool Mix 0 Estimated Blood Loss 1000 Other: Voiding Method Urinal Indwelling Catheter # Voids 3 ABP, PAP, CO, CI - Last Documented Arterial Blood Pressure 105/65 - Exam CONSTITUTIONAL: Appears mostly comfortable, cooperative, no acute distress RESPIRATORY: Lungs sounds diminished bilaterally, expiratory wheezes present on the right side. Respirations even, nonlabored. Currently on 3 L nasal cannula with oxygen saturation 96%. Able to achieve 1250 mL on incentive spirometry. Strong cough. CARDIOVASCULAR: S1, S2 present. Regular rate and rhythm, sinus rhythm on te lemetry. Palpable peripheral pulses bilaterally. No edema present. No calf pain or tenderness noted. SCDs present. GASTROINTESTINAL: Abdomen soft, nontender, nondistended. Hypoactive bowel sounds present 4 quadrants. Tolerating minimal diet. Denies flatus GENITOURINARY: Ramos present draining clear, yellow urine, output 75 to 100 mL/h overnight INTEGUMENTARY: Skin is warm and dry with evidence of good perfusion. Thoracic incision well approximated and covered with dry intact dressing. NEUROLOGIC: Cranial nerves II through XII intact MUSKULOSKELETAL: Able to move all extremities, strength equal bilaterally PSYCHIATRIC: Alert and oriented to person place and time, appropriate affect, intact judgment and insight INVASIVE LINES AND TUBES: Right pleural chest tubes present and connected to wall suction, air leaks present in both with expiration. Right medial tube with 630 mL serosanguineous drainage overnight, 1270 mL since surgery. Right posterior pleural chest tube with 200 mL serosanguineous drainage overnight, 400 mL since surgery. - Allied health notes Allied health notes reviewed: nursing - Labs CBC & Chem 7: 03/01/24 04:30 03/01/24 04:30 Labs: Abnormal Lab Results - Last 24 Hours (Table) 12/03/24 12/04/24 12/04/24 Range/Units 02:47 05:35 05:35 WBC 11.7 H (3.8-10.6) k/uL RBC 3.63 L (4.30-5.90) m/uL Hgb 10.2 L (13.0-17.5) gm/dL Hct 32.9 L (39.0-53.0) % Plt Count 735 H (150-450) k/uL Neutrophils # (1.3-7.7) k/uL Lymphocytes # (1.0-4.8) k/uL Sodium (137-145) mmol/L Carbon Dioxide 32 H (22-30) mmol/L Glucose (74-99) mg/dL Calcium 8.3 L (8.4-10.2) mg/dL Crossmatch See Detail 02/29/24 02/29/24 03/01/24 Range/Units 20:52 20:52 01:40 WBC 20.4 H 18.7 H (3.8-10.6) k/uL RBC 3.18 L 3.21 L (4.30-5.90) m/uL Hgb 9.5 L 9.6 L (13.0-17.5) gm/dL Hct 28.5 L 28.9 L (39.0-53.0) % Plt Count 527 H 472 H (150-450) k/uL Neutrophils # 17.4 H (1.3-7.7) k/uL Lymphocytes # 0.8 L (1.0-4.8) k/uL Sodium 134 L (137-145) mmol/L Carbon Dioxide (22-30) mmol/L Glucose 103 H (74-99) mg/dL Calcium 7.6 L (8.4-10.2) mg/dL Crossmatch 03/01/24 03/01/24 Range/Units 04:30 04:30 WBC 17.2 H (3.8-10.6) k/uL RBC 3.18 L (4.30-5.90) m/uL Hgb 9.5 L (13.0-17.5) gm/dL Hct 28.6 L (39.0-53.0) % Plt Count 473 H (150-450) k/uL Neutrophils # 15.5 H (1.3-7.7) k/uL Lymphocytes # 0.9 L (1.0-4.8) k/uL Sodium 131 L (137-145) mmol/L Carbon Dioxide (22-30) mmol/L Glucose 144 H (74-99) mg/dL Calcium 7.4 L (8.4-10.2) mg/dL Crossmatch - Imaging and Cardiology Chest x-ray: image reviewed Assessment and Plan Assessment: Acute hypoxic respiratory failure secondary to acute infection in the right middle lobe Right midlung consolidation, right middle lobe syndrome with secondary pneumonia, status post bronchoscopy performed on 02/11/2024 and 02/22/24, atelectatic narrowed right middle lobe bronchus with evidence of bronchomalacia and anatomic distortion secondary to a previous right upper lobe resection, status post diagnostic thoracoscopy, open thoracotomy, right middle lobectomy, cryoablation of intercostal nerves VII through III Leukocytosis secondary to above, resolved Hyponatremia History of squamous cell carcinoma, status post wedge resection followed by completion right upper lobectomy Paroxysmal atrial fibrillation, on Eliquis as an outpatient, discontinued this admission Chronic obstructive pulmonary disease Chronic back pain on chronic narcotics History of tobacco dependence with recent cessation in December 2023 Benign prostatic hypertrophy Obesity Anxiety Depression Plan: Continue chest tubes to continuous wall suction, monitor for airleak resolution, monitor output Continue chest physical therapy, every 4 hours, continue to encourage use of flutter valve Antibiotics, bronchodilators, per pulmonology Continue Mucinex Wean oxygen as tolerated. Encourage use of incentive spirometry 10 times every hour while awake Continue to monitor daily chest x-rays Pain control per current medication regimen, will add oral narcotics back per patient's home regimen Continue amiodarone 200 mg p.o. daily x 7 days, continue Lopressor Increase activity, ambulate as tolerated Continue knee-high MICHAEL hose during the day GI/DVT prophylaxis Medical management other comorbidities per primary care service May transfer out of ICU this afternoon if stable More recommendations to follow based on patient's clinical course
[2024-03-01] MEDS: SENNOSIDES-DOCUSATE SODIUM 1 EACH TAB PO SCH (08:50)
--- NOTE | 2024-03-01 09:11 | XR ---
EXAMINATION TYPE: XR chest 1V DATE OF EXAM: 03/01/2024 COMPARISON: 02/29/2024 CLINICAL INDICATION: Male, 63 years old with history of Postoperative right middle lobectomy; TECHNIQUE: Single frontal view of the chest is obtained. FINDINGS: Volume loss right hemithorax in keeping with patient's lobectomy. Right apical pneumothorax currently 4.6 cm versus 5.8 cm, previously. 2 right-sided chest tubes are in place. Surgical change and right perihilar opacity is similar. Background diffuse interstitial opacities. IMPRESSION: 1. Decreasing size of the right apical pneumothorax currently 4.6 cm versus 5.8 cm, previously. [address] place. 2. Similar postsurgical change right hilum with corresponding volume loss right hemithorax following lobectomy. 3. Ongoing diffuse interstitial opacities, possible interstitial pulmonary edema. [facility], , 03/01/2024 9:08 AM
[2024-03-01] MEDS: HYDROcodone/APAP 10-325MG 1 EACH TAB PO PRN ×2 (09:15→13:57)
--- NOTE | 2024-03-01 11:48 | P.PN ---
Subjective Progress Note Date: 03/01/24 S/p right middle lobectomy on 02/28. Pt reporting persisting pain overnight and this morning, pain better controlled at todays visit. Reporting improvement in SOB. CTS following. Afebrile, SPO2 93% on 3L. WBC 17.2, hgb 9.5, plt 473 Objective - Vital Signs Vital signs: Vital Signs Temp 97.0 F L 03/01/24 08:00 Pulse 74 03/01/24 09:06 Resp 18 03/01/24 09:00 BP 94/58 03/01/24 08:50 Pulse Ox 98 03/01/24 09:00 FiO2 Intake & Output 02/29/24 03/01/24 03/01/24 18:59 06:59 18:59 Intake Total 2860 4060 160 Output Total 2075 2535 255 Balance 785 1525 -95 Weight 98.9 kg 100 kg Intake: IV 2550 2300 40 Dextrose 5%-0.45% NaCl 1, 400 40 000 ml @ 40 mls/hr IV . Q24H [facility] Rx#:[id number] Intake, IV Titration 1200 Amount Lactated Ringers 1,000 ml 1000 @ 0 mls/hr IV .STK-MED ONE Rx#:[id number] Piperacillin-Tazobactam 3 200 .375 gm In Sodium Chloride 0.9% 100 ml @ 25 mls/hr IVPB Q8H [facility] Rx#: [id number] Oral 560 120 Blood Product 310 Rc As-1 Unit 310 [id number] Output: Chest Tube Drainage 1625 110 Chest Tube Right 360 50 Posterior Chest right posterior medial 1265 60 chest tube Urine 1075 910 145 Urine/Stool Mix 0 Estimated Blood Loss 1000 Other: Voiding Method Urinal Indwelling Catheter Indwelling Catheter # Voids 3 ABP, PAP, CO, CI - Last Documented Arterial Blood Pressure 105/65 - Constitutional General appearance: Present: average body habitus, no acute distress - EENT Eyes: Present: anicteric sclerae, EOMI ENT: Present: hearing grossly normal - Respiratory Details: breathing even and unlabored, chest tube present - Cardiovascular Details: skin warm and dry - Gastrointestinal General gastrointestinal: Present: soft. Absent: tenderness - Integumentary Integumentary: Absent: cyanotic, jaundiced - Psychiatric Psychiatric: Present: A&O x's 3 - Labs CBC & Chem 7: 03/01/24 04:30 03/01/24 04:30 Labs: Abnormal Lab Results - Last 24 Hours (Table) 02/28/24 02/29/24 02/29/24 Range/Units 02:47 20:52 20:52 WBC 20.4 H (3.8-10.6) k/uL RBC 3.18 L (4.30-5.90) m/uL Hgb 9.5 L (13.0-17.5) gm/dL Hct 28.5 L (39.0-53.0) % Plt Count 527 H (150-450) k/uL Neutrophils # (1.3-7.7) k/uL Lymphocytes # (1.0-4.8) k/uL Sodium 134 L (137-145) mmol/L Glucose 103 H (74-99) mg/dL Calcium 7.6 L (8.4-10.2) mg/dL Crossmatch See Detail 03/01/24 03/01/24 03/01/24 Range/Units 01:40 04:30 04:30 WBC 18.7 H 17.2 H (3.8-10.6) k/uL RBC 3.21 L 3.18 L (4.30-5.90) m/uL Hgb 9.6 L 9.5 L (13.0-17.5) gm/dL Hct 28.9 L 28.6 L (39.0-53.0) % Plt Count 472 H 473 H (150-450) k/uL Neutrophils # 17.4 H 15.5 H (1.3-7.7) k/uL Lymphocytes # 0.8 L 0.9 L (1.0-4.8) k/uL Sodium 131 L (137-145) mmol/L Glucose 144 H (74-99) mg/dL Calcium 7.4 L (8.4-10.2) mg/dL Crossmatch Assessment and Plan (1) Folic acid deficiency Current Visit: Yes Status: Acute Priority: Medium Code(s): E53.8 - DEFICIENCY OF OTHER SPECIFIED B GROUP VITAMINS SNOMED Code(s): 780845092 (2) Normocytic anemia Current Visit: Yes Status: Acute Priority: Medium Code(s): D64.9 - ANEMIA, UNSPECIFIED SNOMED Code(s): 762072442 (3) Postoperative pneumonia Current Visit: Yes Status: Acute Priority: High Code(s): J95.89 - OTH POSTPROC COMPLICATIONS AND DISORDERS OF RESP SYS, NEC; J18.9 - PNEUMONIA, UNSPECIFIED ORGANISM SNOMED Code(s): 009877569 (4) Squamous cell lung cancer Current Visit: No Status: Acute Priority: Medium Code(s): C34.90 - MALIGNANT NEOPLASM OF UNSP PART OF UNSP BRONCHUS OR LUNG SNOMED Code(s): 924803113 Plan: Pneumonia -Postoperative HAP -Developed right middle lobe collapse with atelectasis following right upper lobe wedge resection with mediastinal lymph node dissection on 12/27/2023 -Bronchoscopy on 02/11/2024 revealed no evidence of endobronchial lesions or obstruction in the right middle or right lower lobe and no abnormal findings in the left lung -He did return to the ED on 02/17/2024 with increased dyspnea and fever with chest x-rays showing persistent masslike consolidations in the right lung -He was given ceftriaxone/azithromycin. Currently treated with Zosyn and bronchodilators -S/p right middle lobectomy on 02/28 due to RML syndrome, surgical pathology pending. Reporting increased chest pain over night but pain has improved. SOB improving -Defer management to Pulmonology and Cardiothoracic teams Normocytic anemia -Saturation 4.9%, ferritin 799. Most consistent with inflammation. Plan would be to recheck iron studies outpatient after patient healed from surgery and recovered from acute illness. -Folic acid deficiency noted. Folic acid started. -Low normal B12 levels. Methylmalonic acid elevated. Parenteral Vit B12 x 1 given for functional B12 deficiency -Hemoglobin stable today at 9.5, no transfusions at this time. Transfuse for hemoglobin less than 7 or if patient is symptomatic. Elevated WBC and platelet counts, reactive. 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 PET/CT 11/03/2023 noted right upper lobe nodule measuring 1.1 cm with an SUV of 4.8 that increased FDG avidity compared to PET/CT in December 2021 with no other concerning findings. Right upper lobe wedge resection with lymph node dissection performed on 12/27/2023 noted 1.3 cm grade 2 invasive squamous cell carcinoma less than 2 mm from the parenchymal margin with at least 6 lymph nodes from R4, level 7, R8, R10, and R11 all negative. Given the close parenchymal margin, he underwent right upper lobectomy on 02/09/2024 that noted no residual neoplasm with 2 additional hilar lymph nodes being negative for malignancy. Final pathological staging [id number] squamous cell carcinoma -No adjuvant treatment is indicated -He does require routine surveillance with CT scans of the chest every 3 to 4 months for the first 2 years per NCCN guidelines Doctor attests: I performed a history and physical examination of this patient, developed impression and plan of care. Discussed with dictator. I agree with dictators note, documented as a scribe.
--- NOTE | 2024-03-01 14:39 | P.PN ---
Subjective Progress Note Date: 03/01/24 H&P Date: 02/19/24 Chief Complaint: Cough, diaphoresis, shortness of breath Brian is a 63-year-old white male with known squamous cell carcinoma. He had underwent a mediastinal lymph node dissection and wedge resection of the lung on December 27, 2023. He returned back and February 08 for a right upper lobe lobectomy. While here he had collapse of the right middle lung and underwent a bronchoscopy and bronc and BAL. He developed a complication of paroxysmal atrial fibrillation during his stay. He did improve and was sent home in stable condition. He returned emergency room on 1121 with shortness of breath and cough was sent home. He returned again on 02/18/2024 with worsening symptoms. Found to have a leukocytosis coughing and not feeling well. Also complaining of left-sided chest pain and right-sided chest pain at his surgical site. This morning he isb in sinus rhythm per telemetry heart rates controlled in the 80s O2 saturation 93% on room air. Laboratory studies now show a leukocytosis 16 6 hemoglobin 10.7 and a left shift with the neutrophils at 14,600. Blood chemistries do show a hyponatremia with a sodium 127 chloride 95, calcium is 7.9. Total protein is 6.2 with a albumin of 3.2. 02/20/2024: Brian was reevaluated for his right middle lobe pneumonia. Vital signs show he is afebrile heart rate and respiratory rate blood pressure control. He is on 6 L of O2 via nasal cannula. WBC count is improved now 15.4, hemoglobin 10.4 neutrophils are 14.23, chemistries show sodium 133. Sputum and blood cultures pending. 02/21/2024: Parents feeling slightly better today. He is being treated for his right middle lobe pneumonia. His regular lobe and collapsed after his right upper lobe surgical assisted lobectomy. He remains on ceftriaxone and azithromycin for antibiotics apixaban for anticoagulation acetylcysteine and guaifenesin for mucus production. He is on Symbicort and Atrovent for inhalation therapy at this time. 02/22/2024: Patient could not be seen today as he was down for his bronchoscopy. Labs and chart are reviewed today. Patient remains on Zosyn. He has Eliquis for anticoagulation. He has DuoNeb updrafts or shortness of breath is on Mucomyst and Symbicort. 02/23/2024 patient awake alert oriented 3 complains of chest pain dyspnea 02/24/2024 patient awake alert oriented 3 complains of chest pain dyspnea, status post lung resection 02/25/2024 Patient awake alert oriented 3 vital signs are stable patient is afebrile, patient has been complaining of intermittent chest discomfort, EKG no acute changes' 02/26/2024 Patient awake alert oriented 3 vital signs are stable patient is currently afebrile, no new chest pain today 02/27/24 continues on Zosyn, nebulized bronchodilators, afebrile, WBC 12.66. , Bronch ,sputum and blood cultures reporting negative.ambulated in the hallway earlier this morning, tolerated exertion well. Currently sitting up in chair, maintaining O2 sats in the mid 90s on 2 L nasal cannula. Chest x-ray reporting ongoing masslike right perihilar opacity measuring up to 3.7 cm. Redemonstrated air-fluid level within the inferior aspect of the opacity. Interstitial density in the left lung shows some improvement. Reports chest pain with coughing , receiving [place] scheduled and Dilaudid prn.CTS consulted, recommendations pending. Hemoglobin 9.1, platelets 696 .renal function stable. 02/28/2024 evaluated by CTS and patient is scheduled for right mid lobe lobectomy tomorrow. Complains of left upper molar caries with fracture, Peridex mouthwash ordered. Afebrile, maintained on Zosyn, nebulized bronchodilators, Symbicort and Mucinex. O2 sats in the 90s on 2 L nasal cannula. 02/29/2024 NPO, sitting up in chair, right middle lobe lobectomy scheduled for early this afternoon. Denies chest pain, palpitations or shortness of breath. Maintaining O2 sats in the mid to high 90s on 2 L nasal cannula. continues on Zosyn, afebrile, WBC 11.7, hemoglobin 10.2, renal function and electrolytes within normal limits. 03/01/2024 status post diagnostic thoracic appendectomy, open thoracotomy, right middle lobe lobectomy, cryoablation of intercostal nerves VII through III, postop day #1. 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 Microbiology negative, continues on Zosyn, afebrile, WBC decreased to 17.2. Hemoglobin 9.5, platelets 473, sodium 131, renal function stable, blood sugars controlled, calcium 7.4. Blood pressure soft, mean arterial pressures in the 70s, beta-daniele held. Chest x-ray reporting decreasing size of right apical pneumothorax currently 4.6 cm versus 5.8 cm previously, [address] Similar postsurgical change right hilum with corresponding volume loss right hemothorax following lobectomy. Ongoing diffuse interstitial opacities, possible interstitial pulmonary edema. Maintaining O2 sats in the 90s on 3 L nasal cannula. Denies shortness of breath. Objective - Vital Signs Vital signs: Vital Signs Temp 98.1 F 03/01/24 12:00 Pulse 80 03/01/24 13:20 Resp 18 03/01/24 13:20 BP 102/57 03/01/24 13:20 Pulse Ox 86 L 03/01/24 13:20 FiO2 Intake & Output 02/29/24 03/01/24 03/01/24 18:59 06:59 18:59 Intake Total 2860 4060 300 Output Total 2075 2535 305 Balance 785 1525 -5 Weight 98.9 kg 100 kg Intake: IV 2550 2300 80 Dextrose 5%-0.45% NaCl 1, 400 80 000 ml @ 40 mls/hr IV . Q24H [facility] Rx#:[id number] Intake, IV Titration 1200 Amount Lactated Ringers 1,000 ml 1000 @ 0 mls/hr IV .STK-MED ONE Rx#:[id number] Piperacillin-Tazobactam 3 200 .375 gm In Sodium Chloride 0.9% 100 ml @ 25 mls/hr IVPB Q8H [facility] Rx#: [id number] Oral 560 220 Blood Product 310 Rc As-1 Unit 310 [id number] Output: Chest Tube Drainage 1625 110 Chest Tube Right 360 50 Posterior Chest right posterior medial 1265 60 chest tube Urine 1075 910 195 Urine/Stool Mix 0 Estimated Blood Loss 1000 Other: Voiding Method Urinal Indwelling Catheter Indwelling Catheter # Voids 3 ABP, PAP, CO, CI - Last Documented Arterial Blood Pressure 105/65 - Exam General: Sitting up in chair, alert and oriented times 3,no acute distress.] HEENT: [PERRL. EOMI. No pharyngeal erythema or exudate.] Neck: Supple, no JVD Cardiac: [Heart regular in rate and rhythm. No S3. No S4. No clicks, rubs. No murmur.] Lungs: Unlabored, equal air entry, expiratory wheeze. Right medial and right posterior chest tubes present with serosanguineous drainage. Abdomen: Soft, nontender, nondistended, no organomegaly. Hypoactive positive bowel sounds. Extremes: No edema, no cyanosis no claudication normal pulses, wearing teds.] Skin: [Warm and dry, no rash noted.] Neurologic: CN II - XII grossly intact.] - Labs CBC & Chem 7: 03/01/24 04:30 03/01/24 04:30 Labs: Abnormal Lab Results - Last 24 Hours (Table) 02/28/24 02/29/24 02/29/24 Range/Units 02:47 20:52 20:52 WBC 20.4 H (3.8-10.6) k/uL RBC 3.18 L (4.30-5.90) m/uL Hgb 9.5 L (13.0-17.5) gm/dL Hct 28.5 L (39.0-53.0) % Plt Count 527 H (150-450) k/uL Neutrophils # (1.3-7.7) k/uL Lymphocytes # (1.0-4.8) k/uL Sodium 134 L (137-145) mmol/L Glucose 103 H (74-99) mg/dL Calcium 7.6 L (8.4-10.2) mg/dL Crossmatch See Detail 03/01/24 03/01/24 03/01/24 Range/Units 01:40 04:30 04:30 WBC 18.7 H 17.2 H (3.8-10.6) k/uL RBC 3.21 L 3.18 L (4.30-5.90) m/uL Hgb 9.6 L 9.5 L (13.0-17.5) gm/dL Hct 28.9 L 28.6 L (39.0-53.0) % Plt Count 472 H 473 H (150-450) k/uL Neutrophils # 17.4 H 15.5 H (1.3-7.7) k/uL Lymphocytes # 0.8 L 0.9 L (1.0-4.8) k/uL Sodium 131 L (137-145) mmol/L Glucose 144 H (74-99) mg/dL Calcium 7.4 L (8.4-10.2) mg/dL Crossmatch Assessment and Plan Assessment: Acute hypoxic respiratory failure, positive groundglass changes bilaterally, chest x-ray reporting ongoing masslike right perihilar opacity measuring up to 3.7 cm. Redemonstrated air-fluid level within the inferior aspect of the opacity. Interstitial density in the left lung shows some improvement. status post diagnostic thoracic appendectomy, open thoracotomy, right middle lobe lobectomy, cryoablation of intercostal nerves VII through III, 02/29/2024. Recent lobectomy of right upper lung secondary to Squamous cell lung CA, discharged 02/12 Leukocytosis Right middle lobe atelectasis status post bronchoscopy 02/11/2024. Bronchial lavage cultures reporting negative Paroxysmal atrial fibrillation with RVR, new onset- post lobectomy Chronic nicotine dependence COPD Chronic back pain BPH Anxiety Depression Obesity, BMI 32 Plan: Continue on current medication regimen ,monitoring and symptomatic treatment. Pain management, DVT prophylaxis as per CTS. maintain aggressive pulmonary toileting with incentive spirometer, flutter valve reinforced, nebulized bronchodilators , LABA and antibiotics. The impression and plan of care has been dictated as directed. : I performed a history and examination of this patient, discussed the same with the dictator. I agree with the dictator's note ,documented as a scribe. Any additional findings or plans will be noted.
--- NOTE | 2024-03-01 14:54 | P.PN ---
Subjective Progress Note Date: 03/01/24 Principal diagnosis: Acute hypoxic respiratory failure with atelectatic and consolidated right middle lobe, status post right middle lobectomy postoperative day #1 This is a very pleasant 63-year-old male patient with a known history of chronic and ongoing tobacco dependence of 48 years, chronic obstructive pulmonary disease, chronic back pain, atrial fibrillation. He also has a history of a solitary right upper lobe pulmonary nodule that was positive for squamous cell carcinoma based on a previous wedge resection in December 2023. He was brought back into the hospital for a robotically assisted right upper lobe lobectomy on February 09, 2024. During that hospitalization he was found to have a right middle lobe collapse and had undergone bronchoscopy with BAL. No endobronchial lesions or mucous was identified. He was discharged home on February 13, 2024. He was seen in the emergency department on February 17, 2024 for increasing shortness of breath cough and congestion. He was given azithromycin and discharged to home. He returned to the emergency room again the following day February 18, 2024 with similar symptoms that seem to be worsening. He had a h nilda time sleeping and was having right sided chest pain. Increased mucus. Chest x-ray shows similar findings of a large predominant right perihilar opacity. Stable small right apical hydropneumothorax. Small increasing right pleural effusion. White count 16.6. Hemoglobin 10.7. Platelets 552. Sodium 127. Potassium 5.1. Bicarb 24. BUN 20. Creatinine 0.98. Glucose 104. Viral screen negative. He is seen today in consultation on the regular medical floor. He is currently sitting up in bed. Awake and alert in no acute distress. He is quite weak. He is maintaining O2 saturations in the low 90s on room air. 02/20/2024, the patient is being seen for a follow-up. Patient is post right upper lobectomy for non-small cell lung cancer. 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 The patient has a persistent atelectasis/pneumonia of the right middle lobe. Currently, the patient is hospitalized for worsening shortness of breath. Procalcitonin level is 0.47. Electrolytes are all within normal range with a BUN of 15 and a creatinine of 0.9. The white cell count is at 15.4 with a hemoglobin of 10.4 and a platelet count of 406. The right upper lobe resection was done on 02/10/2024 and it is consistent with benign lung without any residual malignancy. The lymph nodes are also negative for malignancy. The patient is currently on IV Rocephin. The patient is also on Symbicort as maintenance 2 puffs twice a day and IV fluids with normal saline at rate of 75 cc an hour. He is receiving nebulized albuterol 4 times a day. He is oxygen requirements are at 6 L with a pulse ox of 99% On 02/21/2024, the patient is being seen for a follow-up. The patient is on 5 L of oxygen by nasal cannula and the patient is pulse oxing 91%. Continues to have a congested cough. The blood culture was negative. The sputum sample was negative. The patient's white cell count is at 14 with a hemoglobin 9.9 and a platelet count of 658. BUN is 15 with a creatinine of 0.8 and sodium levels at 134. Remains on Ventolin nebulized treatments, Symbicort maintenance and IV Rocephin. The plan is to repeat the patient's bronchoscopy in a.m. and to reevaluate the right middle lobe bronchus. The chest x-ray from today is essentially unchanged. There is a masslike opacity in the right hilum which is probably an atelectatic right middle lobe. On 02/22/2024, patient is being seen for a follow-up. Earlier this morning, the patient was having significant respiratory distress and cough and congestion. He has required higher oxygen flow at 5 L/min nasal cannula with a pulse ox of 95%. Based on that, a CAT scan of the chest was completed this morning without contrast and the CAT scan showed right upper lobectomy, a cavity was seen in the right suprahilar area with a atelectatic right middle lobe consistent with right middle lobe syndrome, /consolidation/groundglass changes and the patient also had some groundglass opacities in the left upper lobe. Airspace disease also seen in the right with an air-fluid level within the cavity. Small right-sided pleural effusion was noted based on those findings, a bronchoscopy was performed today and as expected, the patient had significant narrowing of the right middle lobe bronchus. There was evidence of bronchomalacia. I was able to pass the bronchoscope to the right middle lobe bronchus and visualize the right middle lobe and right lower lobe. Therapeutic airway suctioning was done. 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 Based on those findings, the patient was started on IV Zosyn and antibiotic modification was done. He seems to be much more comfortable post bronchoscopy. He has been placed on anticoagulation regarding paroxysmal atrial fibrillation. His current rhythm has remained sinus and the patient will be taken off the anticoagulation. The sodium levels at 133, BUN 13 with a creatinine 0.8. The white cell count from yesterday was at 14.4 with a hemoglobin 9.9. The procalcitonin level is at 0.47. On 02/23/2024, the patient is being seen for a follow-up. The patient is post bronchoscopy was done yesterday and please refer to the documented report. Repeat chest x-ray was also done today and the patient's findings are essentiall y stable. There is a right suprahilar opacity which remains essentially unchanged and area of atelectatic/infected right middle lobe. Meanwhile, the patient remains on IV Zosyn. The white cell count is down to 11.7. Hemoglobin is stable at 9.0 and the patient was taken off the anticoagulation. Electrolytes are stable. BUN is 12 with a creatinine of 0.8. Awaiting the results of the bronchial lavage. Oxygenation is also stable and the patient remains on 5 L of oxygen by nasal cannula with a pulse ox of 98%. He is sitting up to bedside chair. He is awake and alert. Denies having any pain. He does report some ongoing shortness of breath and a congested cough. He gets short of breath with activity. He is afebrile for now. On today's evaluation of 02/24/2024, the patient is feeling better. His oxygenation is improved and the patient is currently down to 3 L of oxygen nasal cannula with pulse ox of 94%. A follow-up chest x-ray from today shows essentially normal interval change and there is volume loss and right midlung atelectasis/consolidation in addition to a right apical pneumothorax. There is ongoing diffuse groundglass pulmonary filtrates and small right-sided pleural effusion. Bronchoscopy and bronchial lavage was done. Cultures are still pending for now. There is polymicrobial on the Gram stain including few gram- positive cocci and rare gram-negative bacilli. The patient remains on IV Zosyn. The patient remains on Symbicort and DuoNeb the regiment [id number]. The patient is on Symbicort. No issues with pain. Cough and congestion has subsided. Cardiac rhythm is a sinus. The white cell count is 11 with a hemoglobin of 9 and a platelet count of 640. Electrolytes are all within normal limits. BUN is 12 with a creatinine 0.8. On 02/25/2024, the patient is feeling better. Less short of breath. Less bronchospastic and wheezy. He has been weaned down to 2 L of oxygen by nasal cannula. Bronchoscopy endobronchial lavage is not yielded any microbial growth. The patient has responded nicely to IV Zosyn. DuoNeb nebulized treatments a [id number]. Cough and congestion has subsided significantly. Repeat chest x-ray was done today and essentially there is no significant interval change. Small right-sided pleural effusion is seen. On today's evaluation of 02/26/2024, the patient is feeling better. Cough and congestion has subsided significantly. Cultures from the bronchioloalveolar lavage has been negative. The patient remains on IV Zosyn. He is currently on oxygen at 2 L/min nasal cannula. He remains on bronchodilators and steroids. Labs show a white cell count of 7.7 with a hemoglobin 9 and a platelet count of 710. Electrolytes are all within normal limits. Troponins are negative. The patient is seen today February 27, 2024 in follow-up on the regular medical floor. He is currently sitting up in a chair at the bedside. Awake and alert in no acute distress. He is maintaining O2 saturations in the 90s on 2 L/min per nasal cannula. He is afebrile. Hemodynamically stable. Chest x-ray continues to show ongoing masslike right perihilar opacity measuring up to 3.7 cm. Redemonstrated air-fluid level within the inferior aspect of the opacity. This is mostly the right middle lobe volume loss. Sputum and blood cultures revealed no growth. Bronchial wash cultures revealed no growth. White count 12 .6. Hemoglobin 9.1. Platelets 696. Sodium 137. Potassium 4.5. Bicarb 27. BUN 10. Creatinine 0.8. Glucose 166. He remains on DuoNeb inhalations, Symbicort, Solu-Medrol. Antibiotics in the form of Zosyn. Heparin for DVT prophylaxis. The patient is seen today February 28, 2024 in follow-up on the regular medical floor. He is currently awake and alert in no acute distress. Sitting up in a chair at the bedside. Maintaining good O2 saturations in the 90s on 2 L/min per nasal cannula. He has been afebrile. Hemodynamically stable. Bronchial wash cultures from 02/22/2024 revealed no growth. Blood cultures revealed no growth. Sputum culture revealed no growth. He remains on DuoNeb inhalations, Symbicort, Mucinex. Antibiotics in the form of Zosyn. Patient was seen today on 03/20, patient is doing well, relatively asymptomatic, scheduled for right middle lobectomy sometime later today. In the meantime the patient is doing well, no cough no wheezing no shortness of breath, remains on Zosyn. Remains on bronchodilators. WBC count today is 11.7 hemoglobin 10.2 electrolytes are normal renal profile is normal Seen today on 03/01/2024, patient is doing well, underwent diagnostic thoracoscopy open thoracotomy right middle lobectomy cryoablation of intercostal nerves VII through III patient is now in the ICU, sitting at the bedside chair, does not seem to be in any distress, on 3 L nasal cannula achieving 1250 cc on his incentive spirometry. Patient is hemodynamically stable, not on any pressors not requiring any inotropes. Medial and posterior right-sided chest tubes noted patient continues to have right apical pneumothorax and has continuous air leak noted.WBC count is 17.2 hemoglobin is 9.5 electrolytes are normal renal profile is normal Objective - Vital Signs Vital signs: Vital Signs Temp 97.8 F 03/01/24 14:00 Pulse 76 03/01/24 14:30 Resp 17 03/01/24 14:30 BP 100/58 03/01/24 14:30 Pulse Ox 95 03/01/24 14:30 FiO2 Intake & Output 02/29/24 03/01/24 03/01/24 18:59 06:59 18:59 Intake Total 2860 4060 300 Output Total 2075 2535 335 Balance 785 1525 -35 Weight 98.9 kg 100 kg Intake: IV 2550 2300 80 Dextrose 5%-0.45% NaCl 1, 400 80 000 ml @ 40 mls/hr IV . Q24H [facility] Rx#:[id number] Intake, IV Titration 1200 Amount Lactated Ringers 1,000 ml 1000 @ 0 mls/hr IV .[facility] Rx#:[id number] Piperacillin-Tazobactam 3 200 .375 gm In Sodium Chloride 0.9% 100 ml @ 25 mls/hr IVPB Q8H [facility] Rx#: [id number] Oral 560 220 Blood Product 310 Rc As-1 Unit 310 [id number] Output: Chest Tube Drainage 1625 110 Chest Tube Right 360 50 Posterior Chest right posterior medial 1265 60 chest tube Urine 1075 910 225 Urine/Stool Mix 0 Estimated Blood Loss 1000 Other: Voiding Method Urinal Indwelling Catheter Indwelling Catheter # Voids 3 ABP, PAP, CO, CI - Last Documented Arterial Blood Pressure 105/65 - Exam GENERAL EXAM: Alert, in no distress Head: Atraumatic normocephalic EYES: Normal reaction of pupils, equal size. NOSE: Clear with pink turbinates. THROAT: No erythema or exudates. NECK: No masses, no JVD. CHEST: No chest wall deformity. LUNGS: Right-sided chest tubes noted scattered rhonchi noted air leak noted chest x-ray note CVS: S1 and S2 normal with no audible murmur, regular rhythm. ABDOMEN: No hepatosplenomegaly, normal bowel sounds, no guarding or rigidity. SKIN: No rashes CENTRAL NERVOUS SYSTEM: No focal deficits, tone is normal in all 4 extremities. EXTREMITIES: There is no peripheral edema. No clubbing, no cyanosis. Peripheral pulses are intact. - Labs CBC & Chem 7: 03/01/24 04:30 03/01/24 04:30 Labs: Abnormal Lab Results - Last 24 Hours (Table) 02/28/24 02/29/24 02/29/24 Range/Units 02:47 20:52 20:52 WBC 20.4 H (3.8-10.6) k/uL RBC 3.18 L (4.30-5.90) m/uL Hgb 9.5 L (13.0-17.5) gm/dL Hct 28.5 L (39.0-53.0) % Plt Count 527 H (150-450) k/uL Neutrophils # (1.3-7.7) k/uL Lymphocytes # (1.0-4.8) k/uL Sodium 134 L (137-145) mmol/L Glucose 103 H (74-99) mg/dL Calcium 7.6 L (8.4-10.2) mg/dL Crossmatch See Detail 03/01/24 03/01/24 03/01/24 Range/Units 01:40 04:30 04:30 WBC 18.7 H 17.2 H (3.8-10.6) k/uL RBC 3.21 L 3.18 L (4.30-5.90) m/uL Hgb 9.6 L 9.5 L (13.0-17.5) gm/dL Hct 28.9 L 28.6 L (39.0-53.0) % Plt Count 472 H 473 H (150-450) k/uL Neutrophils # 17.4 H 15.5 H (1.3-7.7) k/uL Lymphocytes # 0.8 L 0.9 L (1.0-4.8) k/uL Sodium 131 L (137-145) mmol/L Glucose 144 H (74-99) mg/dL Calcium 7.4 L (8.4-10.2) mg/dL Crossmatch Assessment and Plan Assessment: Impression: Status post diagnostic thoracoscopy, open thoracotomy, right middle lobectomy, cryoablation of intercostal nerves VII through III, postoperative day #1 Acute hypoxemic respiratory failure, multifactorial patient required right middle lobectomy yesterday remains on antibiotics which we have initiated initially/Zosyn. Recent discharge February 13, 2024 following a robotically assisted right upper lobectomy, for stage I bronchogenic carcinoma, squamous cell, T1b, N0 M0 Atrial fibrillation with RVR, post lobectomy Right middle lobe persistent collapse requiring lobectomy Prior wedge resection, right upper lobe solitary pulmonary nodule, which was positive for squamous cell carcinoma, December 27, 2023 Chronic and ongoing tobacco dependence of 48 years COPD Chronic back pain Recommendation: Incentive spirometry Continue present supportive care measures Continue bronchodilators Continue antibiotics Continue GI DVT prophylaxis Will follow Time with Patient: Less than 30
[2024-03-01] MEDS: KETOROLAC 15 MG/ML 1 ML VIAL IVP SCH (18:49)
[2024-03-01] MEDS: DEXAMETHASONE SOD PHOSPHATE 4 MG/ML 1 ML VIAL IV ONE (18:49)
[2024-03-01] MEDS: METOPROLOL TARTRATE 12.5 MG TAB PO SCH (21:06)
[2024-03-02] MEDS: ONDANSETRON 4 MG/2 ML VIAL IVP PRN (06:07)
--- NOTE | 2024-03-02 08:18 | XR ---
EXAMINATION TYPE: XR chest 1V portable DATE OF EXAM: 03/02/2024 6:47 AM COMPARISON: 03/01/2024 CLINICAL INDICATION: Male, 63 years old with history of Post right upper and middle lobectomy, , FINDINGS: Postsurgical volume loss right hemithorax with 2 right-sided chest tubes present. There is persistent right apical pneumothorax currently 4.4 cm versus 4.6 cm, previously. Right hilar prominence likely postsurgical change. Diffuse interstitial opacities persist without significant change. IMPRESSION: 1. Postsurgical volume loss right hemithorax following lobectomies. 2. 2 right-sided chest tubes in place with similar 4.4 cm right apical pneumothorax. 3. Ongoing bilateral interstitial opacities. [facility], , 03/02/2024 8:16 AM
[2024-03-02 08:19] LABS: Hypochromasia Moderate; MCH 29.1 pg (25.0-35.0); MCHC 31.4 g/dL (31.0-37.0); MCV 92.6 fL (80.0-100.0); Platelet Count 447 k/uL (150-450); RBC 3.46 m/uL (4.30-5.90); RDW 14.5 % (11.5-15.5); WBC 20.2 k/uL (3.8-10.6)
[2024-03-02 08:36] LABS: African American GFR (CKD) >90 (>60 ml/min/1.73 sqM); Anion Gap 5 mmol/L; Blood Urea Nitrogen 10 mg/dL (9-20); Calcium 7.7 mg/dL (8.4-10.2); Carbon Dioxide 26 mmol/L (22-30); Chloride 96 mmol/L (98-107); Glucose 106 mg/dL (74-99); Magnesium 2.1 mg/dL (1.6-2.3); Non-African American GFR(CKD) 89 (>60 ml/min/1.73 sqM); Potassium 4.5 mmol/L (3.5-5.1); Sodium 127 mmol/L (137-145)
--- NOTE | 2024-03-02 09:03 | P.PN ---
Subjective Progress Note Date: 03/02/24 Principal diagnosis: Recent right upper wedge resection/right upper lobectomy for squamous cell carcinoma, right middle lobe syndrome, pneumonia. Previous medical history of right upper lobe neoplasm with pathology consistent with squamous cell carcinoma status post robotic assisted thoracoscopic wedge resection right upper lobe mass with hilar and mediastinal lymph node dissection and subsequent robotic assisted thoracoscopic completion right upper lobectomy, paroxysmal atrial fibrillation on Eliquis for anticoagulation outpatient, COPD, obesity, previous tobacco dependence with recent cessation, chronic back pain with chronic narcotic dependency, benign prostatic hypertrophy, anxiety and depression POD #2 diagnostic thoracoscopy, open thoracotomy, right middle lobectomy, cryoablation of intercostal nerves VII through III The patient was seen and examined this morning sitting up in a recliner on the cardiac stepdown unit in no acute distress. The patient does state he feels okay except he continues to have quite a bit of pain to his right chest wall, denies shortness of breath. Remains on Dilaudid [place]. Remains on IV Zosyn for antibiotic coverage, all microbiology finalized negative, remains afebrile. Remains on bronchodilators per pulmonology. Currently on 3 L nasal cannula with oxygen saturation in the mid 90s, able to achieve 1500 mL on his incentive spirometry. Patient in sinus rhythm on the monitor, hemodynamically stable with systolic pressures in the high 90s and mean arterial pressures greater than 70 mmHg. Medial and posterior right chest tubes present to continuous wall suction, air leak present in both with expiration. Chest x-ray, labs reviewed. No other new concerns. Objective - Vital Signs Vital signs: Vital Signs Temp 98.0 F 03/02/24 03:23 Pulse 84 03/02/24 08:12 Resp 18 03/02/24 03:23 BP 97/61 03/02/24 03:23 Pulse Ox 93 L 03/02/24 07:59 FiO2 Intake & Output 03/01/24 03/02/24 03/02/24 18:59 06:59 18:59 Intake Total 540 118 Output Total 820 855 Balance -280 -855 118 Weight 101.1 kg Intake: IV 100 Dextrose 5%-0.45% NaCl 1, 100 000 ml @ 40 mls/hr IV . Q24H [facility] Rx#:[id number] Intake, IV Titration 100 Amount IV Fluid Continuation 1, 100 000 ml @ 0 mls/hr IV .[facility] Rx#:[id number] Oral 340 118 Output: Chest Tube Drainage 525 180 Chest Tube Right 390 160 Posterior Chest right posterior medial 135 20 chest tube Urine 295 675 Other: Voiding Method Indwelling Catheter Indwelling Catheter ABP, PAP, CO, CI - Last Documented Arterial Blood Pressure 105/65 - Exam CONSTITUTIONAL: Appears mostly comfortable, cooperative, no acute distress RESPIRATORY: Lungs sounds diminished bilaterally, wheezes present on the right side. Respirations even, nonlabored. Currently on 3 L nasal cannula with oxygen saturation 92%. Able to achieve 1500 mL on incentive spirometry. Strong cough. CARDIOVASCULAR: S1, S2 present. Regular rate and rhythm, sinus rhythm on telemetry. Palpable peripheral pulses bilaterally. No edema present. No calf pain or tenderness noted. SCDs present. GASTROINTESTINAL: Abdomen soft, nontender, nondistended. Active bowel sounds present 4 quadrants. Tolerating minimal diet. Positive flatus, last bowel movement 02/27 GENITOURINARY: Ramos present draining clear, yellow urine, output 675 mL overnight INTEGUMENTARY: Skin is warm and dry with evidence of good perfusion. Thoracic incision well approximated and covered with dry intact dressing. NEUROLOGIC: Cranial nerves II through XII intact MUSKULOSKELETAL: Able to move all extremities, strength equal bilaterally PSYCHIATRIC: Alert and oriented to person place and time, appropriate affect, intact judgment and insight INVASIVE LINES AND TUBES: Right pleural chest tubes present and connected to wall suction, air leaks present in both with expiration. Right medial tube with 20 mL serosanguineous drainage overnight, 200 mL in the last 24 hours. Right posterior pleural chest tube with 110 mL serosanguineous drainage overnight, 600 mL in the last 24 hours. - Allied health notes Allied health notes reviewed: nursing - Labs CBC & Chem 7: 03/02/24 07:11 03/02/24 07:11 Labs: Abnormal Lab Results - Last 24 Hours (Table) 03/02/24 Range/Units 07:11 WBC 20.2 H (3.8-10.6) k/uL RBC 3.46 L (4.30-5.90) m/uL Hgb 10.0 L (13.0-17.5) gm/dL Hct 32.0 L (39.0-53.0) % - Imaging and Cardiology Chest x-ray: report reviewed, image reviewed Assessment and Plan Assessment: Acute hypoxic respiratory failure secondary to acute infection in the right middle lobe Right midlung consolidation, right middle lobe syndrome with secondary pneumonia, status post bronchoscopy performed on 02/11/2024 and 02/22/24, atelectatic narrowed right middle lobe bronchus with evidence of bronchomalacia and anatomic distortion secondary to a previous right upper lobe resection, status post diagnostic thoracoscopy, open thoracotomy, right middle lobectomy, cryoablation of intercostal nerves VII through III Leukocytosis secondary to above Hyponatremia History of squamous cell carcinoma, status post wedge resection followed by completion right upper lobectomy Paroxysmal atrial fibrillation, on Eliquis as an outpatient, discontinued this admission Chronic obstructive pulmonary disease Chronic back pain on chronic narcotics History of tobacco dependence with recent cessation in December 2023 Benign prostatic hypertrophy Obesity Anxiety Depression Plan: Continue chest tubes to continuous wall suction, monitor for airleak resolution, monitor output Continue chest physical therapy, every 4 hours, continue to encourage use of flutter valve Antibiotics, bronchodilators, per pulmonology Continue Mucinex Wean oxygen as tolerated. Encourage use of incentive spirometry 10 times every hour while awake Continue to monitor daily chest x-rays Pain control per current medication regimen Continue amiodarone 200 mg, continue Lopressor with hold parameters Increase activity, ambulate as tolerated Continue knee-high MICHAEL hose during the day GI/DVT prophylaxis Medical management other comorbidities per primary care service More recommendations to follow based on patient's clinical course
[2024-03-02] MEDS: KETOROLAC 15 MG/ML 1 ML VIAL IVP SCH (14:14)
--- NOTE | 2024-03-02 15:10 | P.PN ---
Subjective Progress Note Date: 03/02/24 H&P Date: 02/19/24 Chief Complaint: Cough, diaphoresis, shortness of breath Brian is a 63-year-old white male with known squamous cell carcinoma. He had underwent a mediastinal lymph node dissection and wedge resection of the lung on December 27, 2023. He returned back and February 08 for a right upper lobe lobectomy. While here he had collapse of the right middle lung and underwent a bronchoscopy and bronc and BAL. He developed a complication of paroxysmal atrial fibrillation during his stay. He did improve and was sent home in stable condition. He returned emergency room on 1121 with shortness of breath and cough was sent home. He returned again on 02/18/2024 with worsening symptoms. Found to have a leukocytosis coughing and not feeling well. Also complaining of left-sided chest pain and right-sided chest pain at his surgical site. This morning he isb in sinus rhythm per telemetry heart rates controlled in the 80s O2 saturation 93% on room air. Laboratory studies now show a leukocytosis 16 6 hemoglobin 10.7 and a left shift with the neutrophils at 14,600. Blood chemistries do show a hyponatremia with a sodium 127 chloride 95, calcium is 7.9. Total protein is 6.2 with a albumin of 3.2. 02/20/2024: Brian was reevaluated for his right middle lobe pneumonia. Vital signs show he is afebrile heart rate and respiratory rate blood pressure control. He is on 6 L of O2 via nasal cannula. WBC count is improved now 15.4, hemoglobin 10.4 neutrophils are 14.23, chemistries show sodium 133. Sputum and blood cultures pending. 02/21/2024: Parents feeling slightly better today. He is being treated for his right middle lobe pneumonia. His regular lobe and collapsed after his right upper lobe surgical assisted lobectomy. He remains on ceftriaxone and azithromycin for antibiotics apixaban for anticoagulation acetylcysteine and guaifenesin for mucus production. He is on Symbicort and Atrovent for inhalation therapy at this time. 02/22/2024: Patient could not be seen today as he was down for his bronchoscopy. Labs and chart are reviewed today. Patient remains on Zosyn. He has Eliquis for anticoagulation. He has DuoNeb updrafts or shortness of breath is on Mucomyst and Symbicort. 02/23/2024 patient awake alert oriented 3 complains of chest pain dyspnea 02/24/2024 patient awake alert oriented 3 complains of chest pain dyspnea, status post lung resection 02/25/2024 Patient awake alert oriented 3 vital signs are stable patient is afebrile, patient has been complaining of intermittent chest discomfort, EKG no acute changes' 02/26/2024 Patient awake alert oriented 3 vital signs are stable patient is currently afebrile, no new chest pain today 02/27/24 continues on Zosyn, nebulized bronchodilators, afebrile, WBC 12.66. , Bronch ,sputum and blood cultures reporting negative.ambulated in the hallway earlier this morning, tolerated exertion well. Currently sitting up in chair, maintaining O2 sats in the mid 90s on 2 L nasal cannula. Chest x-ray reporting ongoing masslike right perihilar opacity measuring up to 3.7 cm. Redemonstrated air-fluid level within the inferior aspect of the opacity. Interstitial density in the left lung shows some improvement. Reports chest pain with coughing , receiving [place] scheduled and Dilaudid prn.CTS consulted, recommendations pending. Hemoglobin 9.1, platelets 696 .renal function stable. 02/28/2024 evaluated by CTS and patient is scheduled for right mid lobe lobectomy tomorrow. Complains of left upper molar caries with fracture, Peridex mouthwash ordered. Afebrile, maintained on Zosyn, nebulized bronchodilators, Symbicort and Mucinex. O2 sats in the 90s on 2 L nasal cannula. 02/29/2024 NPO, sitting up in chair, right middle lobe lobectomy scheduled for early this afternoon. Denies chest pain, palpitations or shortness of breath. Maintaining O2 sats in the mid to high 90s on 2 L nasal cannula. continues on Zosyn, afebrile, WBC 11.7, hemoglobin 10.2, renal function and electrolytes within normal limits. 03/01/2024 status post diagnostic thoracic appendectomy, open thoracotomy, right middle lobe lobectomy, cryoablation of intercostal nerves VII through III, postop day #1. Significant pain throughout the night, [place] was added to pain med regime in addition to Dilaudid [employer] OPERATIONS SPECIALIST with better control currently. Microbiology negative, continues on Zosyn, afebrile, WBC decreased to 17.2. Hemoglobin 9.5, platelets 473, sodium 131, renal function stable, blood sugars controlled, calcium 7.4. Blood pressure soft, mean arterial pressures in the 70s, beta-danilee held. Chest x-ray reporting decreasing size of right apical pneumothorax currently 4.6 cm versus 5.8 cm previously, [address] Similar postsurgical change right hilum with corresponding volume loss right hemothorax following lobectomy. Ongoing diffuse interstitial opacities, possible interstitial pulmonary edema. Maintaining O2 sats in the 90s on 3 L nasal cannula. Denies shortness of breath. 03/02/2024 transferred out of ICU to stepdown unit yesterday. Denies shortness of breath. Maintaining O2 sats in the 90s on 3 L nasal cannula. Continues on Zosyn. Afebrile, labs pending. telemetry sinus rhythm. Reporting right chest wall pain; currently on Dilaudid [employer] OPERATIONS SPECIALIST as well as [place]'s as per cardiothoracic surgery. Denies lightheadedness dizziness or focal deficits. Objective - Vital Signs Vital signs: Vital Signs Temp 98.2 F 03/02/24 08:00 Pulse 86 03/02/24 11:12 Resp 18 03/02/24 08:00 BP 103/66 03/02/24 08:00 Pulse Ox 93 L 03/02/24 08:00 FiO2 Intake & Output 03/01/24 03/02/24 03/02/24 18:59 06:59 18:59 Intake Total 540 118 Output Total 820 855 Balance -280 -855 118 Weight 101.1 kg Intake: IV 100 Dextrose 5%-0.45% NaCl 1, 100 000 ml @ 40 mls/hr IV . Q24H [facility] Rx#:[id number] Intake, IV Titration 100 Amount IV Fluid Continuation 1, 100 000 ml @ 0 mls/hr IV .[facility] Rx#:[id number] Oral 340 118 Output: Chest Tube Drainage 525 180 Chest Tube Right 390 160 Posterior Chest right posterior medial 135 20 chest tube Urine 295 675 Other: Voiding Method Indwelling Catheter Indwelling Catheter Indwelling Catheter ABP, PAP, CO, CI - Last Documented Arterial Blood Pressure 105/65 - Exam General: Sitting up in chair, alert and oriented times 3,no acute distress.] HEENT: [PERRL. EOMI. No pharyngeal erythema or exudate.] Neck: Supple, no JVD Cardiac: [Heart regular in rate and rhythm. No S3. No S4. No clicks, rubs. No murmur.] Lungs: Unlabored, equal air entry, expiratory wheeze. Right medial and right posterior chest tubes present with serosanguineous drainage. IS up to 1500 Abdomen: Soft, nontender, nondistended, no organomegaly. Hypoactive positive bowel sounds. Extremes: No edema, no cyanosis no claudication normal pulses, wearing teds.] Skin: [Warm and dry, no rash noted.] Neurologic: CN II - XII grossly intact.] - Labs CBC & Chem 7: 03/02/24 07:11 03/02/24 07:11 Labs: Abnormal Lab Results - Last 24 Hours (Table) 03/02/24 03/02/24 Range/Units 07:11 07:11 WBC 20.2 H (3.8-10.6) k/uL RBC 3.46 L (4.30-5.90) m/uL Hgb 10.0 L (13.0-17.5) gm/dL Hct 32.0 L (39.0-53.0) % Sodium 127 L (137-145) mmol/L Chloride 96 L (98-107) mmol/L Glucose 106 H (74-99) mg/dL Calcium 7.7 L (8.4-10.2) mg/dL Assessment and Plan Assessment: Acute hypoxic respiratory failure, positive groundglass changes bilaterally, chest x-ray reporting ongoing masslike right perihilar opacity measuring up to 3.7 cm. Redemonstrated air-fluid level within the inferior aspect of the opacity. Interstitial density in the left lung shows some improvement. status post diagnostic thoracic appendectomy, open thoracotomy, right middle lobe lobectomy, cryoablation of intercostal nerves VII through III, 02/29/2024. Recent lobectomy of right upper lung secondary to Squamous cell lung CA, discharged 02/12 Leukocytosis Right middle lobe atelectasis status post bronchoscopy 02/11/2024. Bronchial lavage cultures reporting negative Paroxysmal atrial fibrillation with RVR, new onset- post lobectomy Chronic nicotine dependence COPD Chronic back pain BPH Anxiety Depression Obesity, BMI 32 Plan: Continue on current medication regimen ,monitoring and symptomatic treatment. Labs pending. pain management, DVT prophylaxis as per CTS. maintain aggressive pulmonary toileting with incentive spirometer, flutter valve reinforced, nebulized bronchodilators ,LABA and antibiotics. Increase ambulation as tolerated The impression and plan of care has been dictated as directed. : I performed a history and examination of this patient, discussed the same with the dictator. I agree with the dictator's note ,documented as a scribe. Any additional findings or plans will be noted.
[2024-03-02] MEDS: HYDROmorphone 1 MG/ML 1 ML SYRINGE IVP PRN (16:55)
--- NOTE | 2024-03-02 17:11 | P.PN ---
Subjective Progress Note Date: 03/02/24 Principal diagnosis: Acute hypoxic respiratory failure with atelectatic and consolidated right middle lobe, status post right middle lobectomy postoperative day #2 This is a very pleasant 63-year-old male patient with a known history of chronic and ongoing tobacco dependence of 48 years, chronic obstructive pulmonary disease, chronic back pain, atrial fibrillation. He also has a history of a solitary right upper lobe pulmonary nodule that was positive for squamous cell carcinoma based on a previous wedge resection in December 2023. He was brought back into the hospital for a robotically assisted right upper lobe lobectomy on February 09, 2024. During that hospitalization he was found to have a right middle lobe collapse and had undergone bronchoscopy with BAL. No endobronchial lesions or mucous was identified. He was discharged home on February 13, 2024. He was seen in the emergency department on February 17, 2024 for increasing shortness of breath cough and congestion. He was given azithromycin and discharged to home. He returned to the emergency room again the following day February 18, 2024 with similar symptoms that seem to be worsening. He had a h nilda time sleeping and was having right sided chest pain. Increased mucus. Chest x-ray shows similar findings of a large predominant right perihilar opacity. Stable small right apical hydropneumothorax. Small increasing right pleural effusion. White count 16.6. Hemoglobin 10.7. Platelets 552. Sodium 127. Potassium 5.1. Bicarb 24. BUN 20. Creatinine 0.98. Glucose 104. Viral screen negative. He is seen today in consultation on the regular medical floor. He is currently sitting up in bed. Awake and alert in no acute distress. He is quite weak. He is maintaining O2 saturations in the low 90s on room air. 02/20/2024, the patient is being seen for a follow-up. Patient is post right upper lobectomy for non-small cell lung cancer. 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 The patient has a persistent atelectasis/pneumonia of the right middle lobe. Currently, the patient is hospitalized for worsening shortness of breath. Procalcitonin level is 0.47. Electrolytes are all within normal range with a BUN of 15 and a creatinine of 0.9. The white cell count is at 15.4 with a hemoglobin of 10.4 and a platelet count of 406. The right upper lobe resection was done on 02/10/2024 and it is consistent with benign lung without any residual malignancy. The lymph nodes are also negative for malignancy. The patient is currently on IV Rocephin. The patient is also on Symbicort as maintenance 2 puffs twice a day and IV fluids with normal saline at rate of 75 cc an hour. He is receiving nebulized albuterol 4 times a day. He is oxygen requirements are at 6 L with a pulse ox of 99% On 02/21/2024, the patient is being seen for a follow-up. The patient is on 5 L of oxygen by nasal cannula and the patient is pulse oxing 91%. Continues to have a congested cough. The blood culture was negative. The sputum sample was negative. The patient's white cell count is at 14 with a hemoglobin 9.9 and a platelet count of 658. BUN is 15 with a creatinine of 0.8 and sodium levels at 134. Remains on Ventolin nebulized treatments, Symbicort maintenance and IV Rocephin. The plan is to repeat the patient's bronchoscopy in a.m. and to reevaluate the right middle lobe bronchus. The chest x-ray from today is essentially unchanged. There is a masslike opacity in the right hilum which is probably an atelectatic right middle lobe. On 02/22/2024, patient is being seen for a follow-up. Earlier this morning, the patient was having significant respiratory distress and cough and congestion. He has required higher oxygen flow at 5 L/min nasal cannula with a pulse ox of 95%. Based on that, a CAT scan of the chest was completed this morning without contrast and the CAT scan showed right upper lobectomy, a cavity was seen in the right suprahilar area with a atelectatic right middle lobe consistent with right middle lobe syndrome, /consolidation/groundglass changes and the patient also had some groundglass opacities in the left upper lobe. Airspace disease also seen in the right with an air-fluid level within the cavity. Small right-sided pleural effusion was noted based on those findings, a bronchoscopy was performed today and as expected, the patient had significant narrowing of the right middle lobe bronchus. There was evidence of bronchomalacia. I was able to pass the bronchoscope to the right middle lobe bronchus and visualize the right middle lobe and right lower lobe. Therapeutic airway suctioning was done. 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 Based on those findings, the patient was started on IV Zosyn and antibiotic modification was done. He seems to be much more comfortable post bronchoscopy. He has been placed on anticoagulation regarding paroxysmal atrial fibrillation. His current rhythm has remained sinus and the patient will be taken off the anticoagulation. The sodium levels at 133, BUN 13 with a creatinine 0.8. The white cell count from yesterday was at 14.4 with a hemoglobin 9.9. The procalcitonin level is at 0.47. On 02/23/2024, the patient is being seen for a follow-up. The patient is post bronchoscopy was done yesterday and please refer to the documented report. Repeat chest x-ray was also done today and the patient's findings are essentiall y stable. There is a right suprahilar opacity which remains essentially unchanged and area of atelectatic/infected right middle lobe. Meanwhile, the patient remains on IV Zosyn. The white cell count is down to 11.7. Hemoglobin is stable at 9.0 and the patient was taken off the anticoagulation. Electrolytes are stable. BUN is 12 with a creatinine of 0.8. Awaiting the results of the bronchial lavage. Oxygenation is also stable and the patient remains on 5 L of oxygen by nasal cannula with a pulse ox of 98%. He is sitting up to bedside chair. He is awake and alert. Denies having any pain. He does report some ongoing shortness of breath and a congested cough. He gets short of breath with activity. He is afebrile for now. On today's evaluation of 02/24/2024, the patient is feeling better. His oxygenation is improved and the patient is currently down to 3 L of oxygen nasal cannula with pulse ox of 94%. A follow-up chest x-ray from today shows essentially normal interval change and there is volume loss and right midlung atelectasis/consolidation in addition to a right apical pneumothorax. There is ongoing diffuse groundglass pulmonary filtrates and small right-sided pleural effusion. Bronchoscopy and bronchial lavage was done. Cultures are still pending for now. There is polymicrobial on the Gram stain including few gram- positive cocci and rare gram-negative bacilli. The patient remains on IV Zosyn. The patient remains on Symbicort and DuoNeb the regiment [id number]. The patient is on Symbicort. No issues with pain. Cough and congestion has subsided. Cardiac rhythm is a sinus. The white cell count is 11 with a hemoglobin of 9 and a platelet count of 640. Electrolytes are all within normal limits. BUN is 12 with a creatinine 0.8. On 02/25/2024, the patient is feeling better. Less short of breath. Less bronchospastic and wheezy. He has been weaned down to 2 L of oxygen by nasal cannula. Bronchoscopy endobronchial lavage is not yielded any microbial growth. The patient has responded nicely to IV Zosyn. DuoNeb nebulized treatments a [id number]. Cough and congestion has subsided significantly. Repeat chest x-ray was done today and essentially there is no significant interval change. Small right-sided pleural effusion is seen. On today's evaluation of 02/26/2024, the patient is feeling better. Cough and congestion has subsided significantly. Cultures from the bronchioloalveolar lavage has been negative. The patient remains on IV Zosyn. He is currently on oxygen at 2 L/min nasal cannula. He remains on bronchodilators and steroids. Labs show a white cell count of 7.7 with a hemoglobin 9 and a platelet count of 710. Electrolytes are all within normal limits. Troponins are negative. The patient is seen today February 27, 2024 in follow-up on the regular medical floor. He is currently sitting up in a chair at the bedside. Awake and alert in no acute distress. He is maintaining O2 saturations in the 90s on 2 L/min per nasal cannula. He is afebrile. Hemodynamically stable. Chest x-ray continues to show ongoing masslike right perihilar opacity measuring up to 3.7 cm. Redemonstrated air-fluid level within the inferior aspect of the opacity. This is mostly the right middle lobe volume loss. Sputum and blood cultures revealed no growth. Bronchial wash cultures revealed no growth. White count 12 .6. Hemoglobin 9.1. Platelets 696. Sodium 137. Potassium 4.5. Bicarb 27. BUN 10. Creatinine 0.8. Glucose 166. He remains on DuoNeb inhalations, Symbicort, Solu-Medrol. Antibiotics in the form of Zosyn. Heparin for DVT prophylaxis. The patient is seen today February 28, 2024 in follow-up on the regular medical floor. He is currently awake and alert in no acute distress. Sitting up in a chair at the bedside. Maintaining good O2 saturations in the 90s on 2 L/min per nasal cannula. He has been afebrile. Hemodynamically stable. Bronchial wash cultures from 02/22/2024 revealed no growth. Blood cultures revealed no growth. Sputum culture revealed no growth. He remains on DuoNeb inhalations, Symbicort, Mucinex. Antibiotics in the form of Zosyn. Patient was seen today on 03/20, patient is doing well, relatively asymptomatic, scheduled for right middle lobectomy sometime later today. In the meantime the patient is doing well, no cough no wheezing no shortness of breath, remains on Zosyn. Remains on bronchodilators. WBC count today is 11.7 hemoglobin 10.2 electrolytes are normal renal profile is normal Seen today on 03/01/2024, patient is doing well, underwent diagnostic thoracoscopy open thoracotomy right middle lobectomy cryoablation of intercostal nerves VII through III patient is now in the ICU, sitting at the bedside chair, does not seem to be in any distress, on 3 L nasal cannula achieving 1250 cc on his incentive spirometry. Patient is hemodynamically stable, not on any pressors not requiring any inotropes. Medial and posterior right-sided chest tubes noted patient continues to have right apical pneumothorax and has continuous air leak noted.WBC count is 17.2 hemoglobin is 9.5 electrolytes are normal renal profile is normal Patient was seen today on 03/02/2024, patient is now postoperative day #2, seems to be doing fairly well.POD #2 diagnostic thoracoscopy, open thoracotomy, right middle lobectomy, cryoablation of intercostal nerves VII through III patient is sitting at the bedside chair, does not seem to be in any distress, remains on Zosyn remains on bronchodilators remains on 3 L nasal cannula achieving about 1500 cc on his incentive spirometry he is hemodynamically stable, airleak noted intermittently in both chest tubes continues to have right-sided pneumothorax. Currently however the patient is doing better than expected Objective - Vital Signs Vital signs: Vital Signs Temp 98 F 03/02/24 12:00 Pulse 80 03/02/24 15:36 Resp 18 03/02/24 13:56 BP 95/59 03/02/24 12:00 Pulse Ox 95 03/02/24 12:00 FiO2 Intake & Output 03/01/24 03/02/24 03/02/24 18:59 06:59 18:59 Intake Total 540 118 Output Total 350 611 8256 Balance -915 -241 -5582 Weight 101.1 kg Intake: IV 100 Dextrose 5%-0.45% NaCl 1, 100 000 ml @ 40 mls/hr IV . Q24H [facility] Rx#:[id number] Intake, IV Titration 100 Amount IV Fluid Continuation 1, 100 000 ml @ 0 mls/hr IV .[facility] Rx#:[id number] Oral 340 118 Output: Chest Tube Drainage 525 180 70 Chest Tube Right 390 160 70 Posterior Chest right posterior medial 135 20 0 chest tube Drainage 85 Right 15 Right Posterior 70 Urine 140 239 8944 Other: Voiding Method Indwelling Catheter Indwelling Catheter Indwelling Catheter ABP, PAP, CO, CI - Last Documented Arterial Blood Pressure 105/65 - Exam GENERAL EXAM: Alert, in no distress Head: Atraumatic normocephalic EYES: Normal reaction of pupils, equal size. NOSE: Clear with pink turbinates. THROAT: No erythema or exudates. NECK: No masses, no JVD. CHEST: No chest wall deformity. LUNGS: Right-sided chest tubes noted diminished breath sound bilaterally no rhonchi no wheezes CVS: S1 and S2 normal with no audible murmur, regular rhythm. ABDOMEN: No hepatosplenomegaly, normal bowel sounds, no guarding or rigidity. SKIN: No rashes CENTRAL NERVOUS SYSTEM: No focal deficits, tone is normal in all 4 extremities. EXTREMITIES: There is no peripheral edema. No clubbing, no cyanosis. Peripheral pulses are intact. - Labs CBC & Chem 7: 03/02/24 07:11 03/02/24 07:11 Labs: Abnormal Lab Results - Last 24 Hours (Table) 03/02/24 03/02/24 Range/Units 07:11 07:11 WBC 20.2 H (3.8-10.6) k/uL RBC 3.46 L (4.30-5.90) m/uL Hgb 10.0 L (13.0-17.5) gm/dL Hct 32.0 L (39.0-53.0) % Sodium 127 L (137-145) mmol/L Chloride 96 L (98-107) mmol/L Glucose 106 H (74-99) mg/dL Calcium 7.7 L (8.4-10.2) mg/dL Microbiology - Last 24 Hours (Table) 02/22/24 11:25 Fungal Culture - Preliminary Bronchoalviolar Lavage - Right Sadaf albicans Assessment and Plan Assessment: Impression: Status post diagnostic thoracoscopy, open thoracotomy, right middle lobectomy, cryoablation of intercostal nerves VII through III, postoperative day #2 Acute hypoxemic respiratory failure, multifactorial patient required right middle lobectomy yesterday remains on antibiotics which we have initiated initially/Zosyn. Recent discharge February 13, 2024 following a robotically assisted right upper lobectomy, for stage I bronchogenic carcinoma, squamous cell, T1b, N0 M0 Atrial fibrillation with RVR, post lobectomy Right middle lobe persistent collapse requiring lobectomy Prior wedge resection, right upper lobe solitary pulmonary nodule, which was positive for squamous cell carcinoma, December 27, 2023 Chronic and ongoing tobacco dependence of 48 years COPD Chronic back pain Recommendation: Incentive spirometry Continue present supportive care measures Continue bronchodilators Continue antibiotics Continue GI DVT prophylaxis Continue to monitor chest tube leaks and continue to monitor daily x-rays of the chest Will follow Time with Patient: Less than 30
[2024-03-02] MEDS: methocarbamoL 500 MG TAB PO SCH (17:57)
[2024-03-03 07:02] LABS: HCT 26.5 % (39.0-53.0); HGB 8.7 gm/dL (13.0-17.5); Hypochromasia Slight; MCH 30.1 pg (25.0-35.0); MCHC 32.9 g/dL (31.0-37.0); MCV 91.5 fL (80.0-100.0); Mean Platelet Volume 7.4; Platelet Count 391 k/uL (150-450); RBC 2.89 m/uL (4.30-5.90); RDW 14.9 % (11.5-15.5)
--- NOTE | 2024-03-03 07:14 | XR ---
EXAMINATION TYPE: XR chest 1V portable DATE OF EXAM: 03/03/2024 COMPARISON: 03/02/2024 CLINICAL INDICATION: Male, 63 years old with history of Post right upper and middle lobectomy; TECHNIQUE: Single frontal view of the chest is obtained. FINDINGS: Patient is status post right upper lobe lobectomy. There is a stable right apical pneumotho rax. There is no change in the 2 right chest tubes in tip of which in the right lung apex. There is stable mild interstitial opacity in the left lung. There is stable prominence of the right h ilar region and stable right partially consolidated opacity in the right lung base. The heart size is normal. The osseous structures are intact. IMPRESSION: No change in the right apical pneumothorax or the position of the 2 right chest tubes. No change in s mall focal opacity in the right lung base. [facility], , 03/03/2024 7:11 AM
[2024-03-03 07:33] LABS: African American GFR (CKD) >90 (>60 ml/min/1.73 sqM); Anion Gap 4 mmol/L; Blood Urea Nitrogen 7 mg/dL (9-20); Calcium 7.5 mg/dL (8.4-10.2); Carbon Dioxide 31 mmol/L (22-30); Chloride 99 mmol/L (98-107); Glucose 94 mg/dL (74-99); Non-African American GFR(CKD) 89 (>60 ml/min/1.73 sqM); Potassium 3.8 mmol/L (3.5-5.1); Sodium 134 mmol/L (137-145)
--- NOTE | 2024-03-03 08:57 | P.PN ---
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 Previous medical history of right upper lobe neoplasm with pathology consistent with squamous cell carcinoma status post robotic assisted thoracoscopic wedge resection right upper lobe mass with hilar and mediastinal lymph node dissection and subsequent robotic assisted thoracoscopic completion right upper lobectomy, paroxysmal atrial fibrillation on Eliquis for anticoagulation outpatient, COPD, obesity, previous tobacco dependence with recent cessation, chronic back pain with chronic narcotic dependency, benign prostatic hypertrophy, anxiety and depression POD #3 diagnostic thoracoscopy, open thoracotomy, right middle lobectomy, cryoablation of intercostal nerves VII through III The patient was seen and examined this morning sitting up in a recliner on the cardiac stepdown unit in no acute distress. The patient continues to complain of pain to his right chest wall, denies shortness of breath. Stated yesterday that the Dilaudid FOREMAN/PILE DRIVING AND ERECTION was not working at all, requested to go back on IV push Dilaudid at what ever dose and timing we felt was appropriate. Dilaudid FOREMAN/PILE DRIVING AND ERECTION discontinued, IV Dilaudid 1 mg every 4 hours as needed ordered in addition to his normal high-dose Scheller, Toradol was added, Robaxin was added. He also had cryoablation of the intercostal nerves during his middle lobe surgery. Remains on IV Zosyn for antibiotic coverage, all microbiology finalized negative, remains afebrile. Remains on bronchodilators per pulmonology. Currently on 3 L nasal cannula with oxygen saturation in the high 90s, able to achieve 1250 mL on his incentive spirometry. Patient in atrial fibrillation on the monitor, hem odynamically stable with systolic pressures in the high 90s and mean arterial pressures greater than 65 mmHg. Medial and posterior right chest tubes present to continuous wall suction, air leak present in both with expiration. Chest x- ray, labs reviewed. No other new concerns. Objective - Vital Signs Vital signs: Vital Signs Temp 97.5 F L 03/03/24 08:00 Pulse 76 03/03/24 08:09 Resp 16 03/03/24 08:00 BP 90/56 03/03/24 08:00 Pulse Ox 99 03/03/24 08:00 FiO2 Intake & Output 03/02/24 03/03/24 03/03/24 18:59 06:59 18:59 Intake Total 916 118 Output Total 1255 1420 Balance -339 -1420 118 Weight 100.2 kg Intake: Oral 916 118 Output: Chest Tube Drainage 70 220 Chest Tube Right 70 120 Posterior Chest right posterior medial 0 100 chest tube Drainage 85 Right 15 Right Posterior 70 Urine 1100 1200 Other: Voiding Method Indwelling Catheter Indwelling Catheter ABP, PAP, CO, CI - Last Documented Arterial Blood Pressure 105/65 - Exam CONSTITUTIONAL: Appears somewhat comfortable although does continue to complain of pain at his surgical site, cooperative, no acute distress RESPIRATORY: Lungs sounds diminished bilaterally, wheezes present on the right superior side. Respirations even, nonlabored. Currently on 3 L nasal cannula with oxygen saturation 98%. Able to achieve 1250 mL on incentive spirometry. Strong cough. CARDIOVASCULAR: S1, S2 present. Irregular rate and rhythm, controlled atrial fibrillation on telemetry. Palpable peripheral pulses bilaterally. No edema present. No calf pain or tenderness noted. SCDs present. GASTROINTESTINAL: Abdomen soft, nontender, nondistended. Active bowel sounds present 4 quadrants. Tolerating minimal diet. Positive flatus, last bowel movement 02/27 GENITOURINARY: Ramos present draining clear, yellow urine, output 2300 mL last 24 hours INTEGUMENTARY: Skin is warm and dry with evidence of good perfusion. Thoracic incision well approximated and covered with dry intact dressing. NEUROLOGIC: Cranial nerves II through XII intact MUSKULOSKELETAL: Able to move all extremities, strength equal bilaterally PSYCHIATRIC: Alert and oriented to person place and time, appropriate affect, intact judgment and insight INVASIVE LINES AND TUBES: Right pleural chest tubes present and connected to wall suction, air leaks present in both with expiration. Right medial tube with 40 mL serosanguineous drainage overnight, 100 mL in the last 24 hours. Right posterior pleural chest tube with 70 mL serosanguineous drainage overnight, 300 mL in the last 24 hours. - Allied health notes Allied health notes reviewed: nursing - Labs CBC & Chem 7: 03/03/24 06:01 03/03/24 06:01 Labs: Abnormal Lab Results - Last 24 Hours (Table) 03/03/24 03/03/24 Range/Units 06:01 06:01 WBC 11.0 H (3.8-10.6) k/uL RBC 2.89 L (4.30-5.90) m/uL Hgb 8.7 L (13.0-17.5) gm/dL Hct 26.5 L (39.0-53.0) % Sodium 134 L (137-145) mmol/L Carbon Dioxide 31 H (22-30) mmol/L BUN 7 L (9-20) mg/dL Calcium 7.5 L (8.4-10.2) mg/dL Microbiology - Last 24 Hours (Table) 02/22/24 11:25 Fungal Culture - Preliminary Bronchoalviolar Lavage - Right Sadaf albicans - Imaging and Cardiology Chest x-ray: report reviewed, image reviewed Assessment and Plan Assessment: Acute hypoxic respiratory failure secondary to acute infection in the right middle lobe Right midlung consolidation, right middle lobe syndrome with secondary pneumonia, status post bronchoscopy performed on 02/11/2024 and 02/22/24, atelectatic narrowed right middle lobe bronchus with evidence of bronchomalacia and anatomic distortion secondary to a previous right upper lobe resection, status post diagnostic thoracoscopy, open thoracotomy, right middle lobectomy, cryoablation of intercostal nerves VII through III Leukocytosis secondary to above Hyponatremia History of squamous cell carcinoma, status post wedge resection followed by completion right upper lobectomy Paroxysmal atrial fibrillation, on Eliquis as an outpatient, discontinued this admission Chronic obstructive pulmonary disease Chronic back pain on chronic narcotics History of tobacco dependence with recent cessation in December 2023 Benign prostatic hypertrophy Obesity Anxiety Depression Plan: Continue chest tubes to continuous wall suction, monitor for airleak resolution, monitor output Continue chest physical therapy, every 4 hours, continue to encourage use of flutter valve Antibiotics, bronchodilators, per pulmonology Continue Mucinex Wean oxygen as tolerated. Encourage use of incentive spirometry 10 times every hour while awake Continue to monitor daily chest x-rays Pain control per current medication regimen Continue amiodarone 200 mg, continue Lopressor with hold parameters Increase activity, ambulate as tolerated Continue knee-high MICHAEL hose during the day GI/DVT prophylaxis Medical management other comorbidities per primary care service More recommendations to follow based on patient's clinical course
[2024-03-03] MEDS: POTASSIUM CHLORIDE ER 20 MEQ TAB.ER PO STA (09:47)
--- NOTE | 2024-03-03 15:34 | P.PN ---
Subjective Progress Note Date: 03/03/24 Principal diagnosis: Acute hypoxic respiratory failure with atelectatic and consolidated right middle lobe, status post right middle lobectomy postoperative day #3 This is a very pleasant 63-year-old male patient with a known history of chronic and ongoing tobacco dependence of 48 years, chronic obstructive pulmonary disease, chronic back pain, atrial fibrillation. He also has a history of a solitary right upper lobe pulmonary nodule that was positive for squamous cell carcinoma based on a previous wedge resection in December 2023. He was brought back into the hospital for a robotically assisted right upper lobe lobectomy on February 09, 2024. During that hospitalization he was found to have a right middle lobe collapse and had undergone bronchoscopy with BAL. No endobronchial lesions or mucous was identified. He was discharged home on February 13, 2024. He was seen in the emergency department on February 17, 2024 for increasing shortness of breath cough and congestion. He was given azithromycin and discharged to home. He returned to the emergency room again the following day February 18, 2024 with similar symptoms that seem to be worsening. He had a h nilda time sleeping and was having right sided chest pain. Increased mucus. Chest x-ray shows similar findings of a large predominant right perihilar opacity. Stable small right apical hydropneumothorax. Small increasing right pleural effusion. White count 16.6. Hemoglobin 10.7. Platelets 552. Sodium 127. Potassium 5.1. Bicarb 24. BUN 20. Creatinine 0.98. Glucose 104. Viral screen negative. He is seen today in consultation on the regular medical floor. He is currently sitting up in bed. Awake and alert in no acute distress. He is quite weak. He is maintaining O2 saturations in the low 90s on room air. 02/20/2024, the patient is being seen for a follow-up. Patient is post right upper lobectomy for non-small cell lung cancer. 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 The patient has a persistent atelectasis/pneumonia of the right middle lobe. Currently, the patient is hospitalized for worsening shortness of breath. Procalcitonin level is 0.47. Electrolytes are all within normal range with a BUN of 15 and a creatinine of 0.9. The white cell count is at 15.4 with a hemoglobin of 10.4 and a platelet count of 406. The right upper lobe resection was done on 02/10/2024 and it is consistent with benign lung without any residual malignancy. The lymph nodes are also negative for malignancy. The patient is currently on IV Rocephin. The patient is also on Symbicort as maintenance 2 puffs twice a day and IV fluids with normal saline at rate of 75 cc an hour. He is receiving nebulized albuterol 4 times a day. He is oxygen requirements are at 6 L with a pulse ox of 99% On 02/21/2024, the patient is being seen for a follow-up. The patient is on 5 L of oxygen by nasal cannula and the patient is pulse oxing 91%. Continues to have a congested cough. The blood culture was negative. The sputum sample was negative. The patient's white cell count is at 14 with a hemoglobin 9.9 and a platelet count of 658. BUN is 15 with a creatinine of 0.8 and sodium levels at 134. Remains on Ventolin nebulized treatments, Symbicort maintenance and IV Rocephin. The plan is to repeat the patient's bronchoscopy in a.m. and to reevaluate the right middle lobe bronchus. The chest x-ray from today is essentially unchanged. There is a masslike opacity in the right hilum which is probably an atelectatic right middle lobe. On 02/22/2024, patient is being seen for a follow-up. Earlier this morning, the patient was having significant respiratory distress and cough and congestion. He has required higher oxygen flow at 5 L/min nasal cannula with a pulse ox of 95%. Based on that, a CAT scan of the chest was completed this morning without contrast and the CAT scan showed right upper lobectomy, a cavity was seen in the right suprahilar area with a atelectatic right middle lobe consistent with right middle lobe syndrome, /consolidation/groundglass changes and the patient also had some groundglass opacities in the left upper lobe. Airspace disease also seen in the right with an air-fluid level within the cavity. Small right-sided pleural effusion was noted based on those findings, a bronchoscopy was performed today and as expected, the patient had significant narrowing of the right middle lobe bronchus. There was evidence of bronchomalacia. I was able to pass the bronchoscope to the right middle lobe bronchus and visualize the right middle lobe and right lower lobe. Therapeutic airway suctioning was done. 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 Based on those findings, the patient was started on IV Zosyn and antibiotic modification was done. He seems to be much more comfortable post bronchoscopy. He has been placed on anticoagulation regarding paroxysmal atrial fibrillation. His current rhythm has remained sinus and the patient will be taken off the anticoagulation. The sodium levels at 133, BUN 13 with a creatinine 0.8. The white cell count from yesterday was at 14.4 with a hemoglobin 9.9. The procalcitonin level is at 0.47. On 02/23/2024, the patient is being seen for a follow-up. The patient is post bronchoscopy was done yesterday and please refer to the documented report. Repeat chest x-ray was also done today and the patient's findings are essentiall y stable. There is a right suprahilar opacity which remains essentially unchanged and area of atelectatic/infected right middle lobe. Meanwhile, the patient remains on IV Zosyn. The white cell count is down to 11.7. Hemoglobin is stable at 9.0 and the patient was taken off the anticoagulation. Electrolytes are stable. BUN is 12 with a creatinine of 0.8. Awaiting the results of the bronchial lavage. Oxygenation is also stable and the patient remains on 5 L of oxygen by nasal cannula with a pulse ox of 98%. He is sitting up to bedside chair. He is awake and alert. Denies having any pain. He does report some ongoing shortness of breath and a congested cough. He gets short of breath with activity. He is afebrile for now. On today's evaluation of 02/24/2024, the patient is feeling better. His oxygenation is improved and the patient is currently down to 3 L of oxygen nasal cannula with pulse ox of 94%. A follow-up chest x-ray from today shows essentially normal interval change and there is volume loss and right midlung atelectasis/consolidation in addition to a right apical pneumothorax. There is ongoing diffuse groundglass pulmonary filtrates and small right-sided pleural effusion. Bronchoscopy and bronchial lavage was done. Cultures are still pending for now. There is polymicrobial on the Gram stain including few gram- positive cocci and rare gram-negative bacilli. The patient remains on IV Zosyn. The patient remains on Symbicort and DuoNeb the regiment [id number]. The patient is on Symbicort. No issues with pain. Cough and congestion has subsided. Cardiac rhythm is a sinus. The white cell count is 11 with a hemoglobin of 9 and a platelet count of 640. Electrolytes are all within normal limits. BUN is 12 with a creatinine 0.8. On 02/25/2024, the patient is feeling better. Less short of breath. Less bronchospastic and wheezy. He has been weaned down to 2 L of oxygen by nasal cannula. Bronchoscopy endobronchial lavage is not yielded any microbial growth. The patient has responded nicely to IV Zosyn. DuoNeb nebulized treatments a [id number]. Cough and congestion has subsided significantly. Repeat chest x-ray was done today and essentially there is no significant interval change. Small right-sided pleural effusion is seen. On today's evaluation of 02/26/2024, the patient is feeling better. Cough and congestion has subsided significantly. Cultures from the bronchioloalveolar lavage has been negative. The patient remains on IV Zosyn. He is currently on oxygen at 2 L/min nasal cannula. He remains on bronchodilators and steroids. Labs show a white cell count of 7.7 with a hemoglobin 9 and a platelet count of 710. Electrolytes are all within normal limits. Troponins are negative. The patient is seen today February 27, 2024 in follow-up on the regular medical floor. He is currently sitting up in a chair at the bedside. Awake and alert in no acute distress. He is maintaining O2 saturations in the 90s on 2 L/min per nasal cannula. He is afebrile. Hemodynamically stable. Chest x-ray continues to show ongoing masslike right perihilar opacity measuring up to 3.7 cm. Redemonstrated air-fluid level within the inferior aspect of the opacity. This is mostly the right middle lobe volume loss. Sputum and blood cultures revealed no growth. Bronchial wash cultures revealed no growth. White count 12 .6. Hemoglobin 9.1. Platelets 696. Sodium 137. Potassium 4.5. Bicarb 27. BUN 10. Creatinine 0.8. Glucose 166. He remains on DuoNeb inhalations, Symbicort, Solu-Medrol. Antibiotics in the form of Zosyn. Heparin for DVT prophylaxis. The patient is seen today February 28, 2024 in follow-up on the regular medical floor. He is currently awake and alert in no acute distress. Sitting up in a chair at the bedside. Maintaining good O2 saturations in the 90s on 2 L/min per nasal cannula. He has been afebrile. Hemodynamically stable. Bronchial wash cultures from 02/22/2024 revealed no growth. Blood cultures revealed no growth. Sputum culture revealed no growth. He remains on DuoNeb inhalations, Symbicort, Mucinex. Antibiotics in the form of Zosyn. Patient was seen today on 03/20, patient is doing well, relatively asymptomatic, scheduled for right middle lobectomy sometime later today. In the meantime the patient is doing well, no cough no wheezing no shortness of breath, remains on Zosyn. Remains on bronchodilators. WBC count today is 11.7 hemoglobin 10.2 electrolytes are normal renal profile is normal Seen today on 03/01/2024, patient is doing well, underwent diagnostic thoracoscopy open thoracotomy right middle lobectomy cryoablation of intercostal nerves VII through III patient is now in the ICU, sitting at the bedside chair, does not seem to be in any distress, on 3 L nasal cannula achieving 1250 cc on his incentive spirometry. Patient is hemodynamically stable, not on any pressors not requiring any inotropes. Medial and posterior right-sided chest tubes noted patient continues to have right apical pneumothorax and has continuous air leak noted.WBC count is 17.2 hemoglobin is 9.5 electrolytes are normal renal profile is normal Patient was seen today on 03/02/2024, patient is now postoperative day #2, seems to be doing fairly well.POD #2 diagnostic thoracoscopy, open thoracotomy, right middle lobectomy, cryoablation of intercostal nerves VII through III patient is sitting at the bedside chair, does not seem to be in any distress, remains on Zosyn remains on bronchodilators remains on 3 L nasal cannula achieving about 1500 cc on his incentive spirometry he is hemodynamically stable, airleak noted intermittently in both chest tubes continues to have right-sided pneumothorax. Currently however the patient is doing better than expected Seen today on 03/03/2024, patient is now postoperative day #3 patient is sitting at the bedside recliner, does not seem to be in any distress, denies shortness of breath, he does have some pain but seems to be fairly well-controlled at the surgical site/chest wall pain. Patient is receiving Dilaudid IV push his Dilaudid CLOTH WEAVER pump has been discontinued. My on Zosyn remains on bronchodilators, continues to have air leak in the chest tubes, and continues to have right apical pneumothorax. WBC count is 11 hemoglobin is 8.7 electrolytes are normal renal profile is normal dramatic improvement in his WBC count for the first time is noted, was as high as 20.2 yesterday Objective - Vital Signs Vital signs: Vital Signs Temp 97.5 F L 03/03/24 08:00 Pulse 76 03/03/24 12:38 Resp 16 03/03/24 11:11 BP 103/58 03/03/24 11:11 Pulse Ox 100 03/03/24 11:11 FiO2 Intake & Output 03/02/24 03/03/24 03/03/24 18:59 06:59 18:59 Intake Total 916 236 Output Total 1255 1420 Balance -339 -1420 236 Weight 100.2 kg Intake: Oral 916 236 Output: Chest Tube Drainage 70 220 Chest Tube Right 70 120 Posterior Chest right posterior medial 0 100 chest tube Drainage 85 Right 15 Right Posterior 70 Urine 1100 1200 Other: Voiding Method Indwelling Catheter Indwelling Catheter Indwelling Catheter ABP, PAP, CO, CI - Last Documented Arterial Blood Pressure 105/65 - Exam GENERAL EXAM: Alert, in no distress Head: Atraumatic normocephalic EYES: Normal reaction of pupils, equal size. NOSE: Clear with pink turbinates. THROAT: No erythema or exudates. NECK: No masses, no JVD. CHEST: No chest wall deformity. LUNGS: Right-sided chest tubes noted diminished breath sound bilaterally no rhonchi no wheezes CVS: S1 and S2 normal with no audible murmur, regular rhythm. ABDOMEN: No hepatosplenomegaly, normal bowel sounds, no guarding or rigidity. SKIN: No rashes CENTRAL NERVOUS SYSTEM: No focal deficits, tone is normal in all 4 extremities. EXTREMITIES: 2+ bipedal peripheral edema. No clubbing, no cyanosis. Peripheral pulses are intact. - Labs CBC & Chem 7: 03/03/24 06:01 03/03/24 06:01 Labs: Abnormal Lab Results - Last 24 Hours (Table) 03/03/24 03/03/24 Range/Units 06:01 06:01 WBC 11.0 H (3.8-10.6) k/uL RBC 2.89 L (4.30-5.90) m/uL Hgb 8.7 L (13.0-17.5) gm/dL Hct 26.5 L (39.0-53.0) % Sodium 134 L (137-145) mmol/L Carbon Dioxide 31 H (22-30) mmol/L BUN 7 L (9-20) mg/dL Calcium 7.5 L (8.4-10.2) mg/dL Microbiology - Last 24 Hours (Table) 02/22/24 11:25 Fungal Culture - Preliminary Bronchoalviolar Lavage - Right Sadaf albicans Assessment and Plan Assessment: Impression: Status post diagnostic thoracoscopy, open thoracotomy, right middle lobectomy, cryoablation of intercostal nerves VII through III, postoperative day #3 Acute hypoxemic respiratory failure, multifactorial patient required right middle lobectomy yesterday remains on antibiotics which we have initiated initially/Zosyn. Recent discharge February 13, 2024 following a robotically assisted right upper lobectomy, for stage I bronchogenic carcinoma, squamous cell, T1b, N0 M0 Atrial fibrillation with RVR, post lobectomy Right middle lobe persistent collapse requiring lobectomy Prior wedge resection, right upper lobe solitary pulmonary nodule, which was positive for squamous cell carcinoma, December 27, 2023 Chronic and ongoing tobacco dependence of 48 years COPD Chronic back pain Recommendation: Continue incentive spirometry Continue present supportive care measures Continue bronchodilators Continue antibiotics Continue GI DVT prophylaxis Continue to monitor chest tube leaks and continue to monitor daily x-rays of the chest Much to be added today otherwise. Will follow Time with Patient: Less than 30
--- NOTE | 2024-03-04 06:48 | XR ---
EXAMINATION TYPE: XR chest 1V portable DATE OF EXAM: 03/04/2024 COMPARISON: 03/03/2024 CLINICAL INDICATION: Male, 63 years old with history of Post right upper and middle lobectomy; TECHNIQUE: Single frontal view of the chest is obtained. FINDINGS: There is no change in the right apical pneumothorax. There are 2 right chest tubes one of which has b een withdrawn slightly and appears to be below the level of the pneumothorax. The other chest tube ti p is in the right lung apex. There is no change in the diffuse pulmonary vascular congestion in both lungs. Heart size is normal. The osseous structures are intact. IMPRESSION: 1. No change in the right apical pneumothorax 2. One of the 2 chest tubes tips is now below the level of the pneumothorax. 3. No change in the diffuse interstitial process [facility], , 03/04/2024 6:43 AM
[2024-03-04 08:27] LABS: HCT 26.1 % (39.0-53.0); HGB 8.4 gm/dL (13.0-17.5); Hypochromasia Moderate; MCH 29.5 pg (25.0-35.0); MCV 92.3 fL (80.0-100.0); Mean Platelet Volume 6.9; Platelet Count 382 k/uL (150-450); RBC 2.83 m/uL (4.30-5.90); RDW 14.6 % (11.5-15.5); WBC 7.1 k/uL (3.8-10.6)
--- NOTE | 2024-03-04 08:28 | P.PN ---
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 Previous medical history of right upper lobe neoplasm with pathology consistent with squamous cell carcinoma status post robotic assisted thoracoscopic wedge resection right upper lobe mass with hilar and mediastinal lymph node dissection and subsequent robotic assisted thoracoscopic completion right upper lobectomy, paroxysmal atrial fibrillation on Eliquis for anticoagulation outpatient, COPD, obesity, previous tobacco dependence with recent cessation, chronic back pain with chronic narcotic dependency, benign prostatic hypertrophy, anxiety and depression POD #4 diagnostic thoracoscopy, open thoracotomy, right middle lobectomy, cryoablation of intercostal nerves VII through III The patient was seen and examined this morning sitting up in a recliner on the cardiac stepdown unit in no acute distress. The patient continues to complain of pain to his right chest wall, denies shortness of breath. Remains on IV Zosyn for antibiotic coverage per pulmonology, all microbiology finalized negative, remains afebrile. Remains on bronchodilators per pulmonology. Currently on 3 L nasal cannula with oxygen saturation 100%, decreased to 2 L, able to achieve 1250 mL on his incentive spirometry. Patient in sinus rhythm on the monitor, hemodynamically stable. Medial and posterior right chest tubes present to continuous wall suction, air leak present in both with expiration. Chest x-ray, labs reviewed. No other new concerns. Objective - Vital Signs Vital signs: Vital Signs Temp 97.7 F 03/03/24 20:10 Pulse 70 03/04/24 08:09 Resp 18 03/04/24 04:11 BP 116/66 03/04/24 04:11 Pulse Ox 100 03/04/24 04:11 FiO2 Intake & Output 03/03/24 03/04/24 03/04/24 18:59 06:59 18:59 Intake Total 816 Output Total 500 Balance 816 -500 Weight 100.7 kg Intake: Intake, IV Titration 100 Amount Piperacillin-Tazobactam 3 100 .375 gm In Sodium Chloride 0.9% 100 ml @ 25 mls/hr IVPB Q8H ON LICENSE OF [facility] Rx#: [id number] Oral 716 Output: Chest Tube Drainage 200 Chest Tube Right 150 Posterior Chest right posterior medial 50 chest tube Urine 300 Other: Voiding Method Indwelling Catheter Indwelling Catheter ABP, PAP, CO, CI - Last Documented Arterial Blood Pressure 105/65 - Exam CONSTITUTIONAL: Appears somewhat comfortable although does continue to complain of pain at his surgical site, cooperative, no acute distress RESPIRATORY: Lungs sounds diminished bilaterally, coarse breath sounds present on the right side. Respirations even, nonlabored. Currently on 3 L nasal cannula with oxygen saturation 100%. Able to achieve 1250 mL on incentive spirometry. Strong cough. CARDIOVASCULAR: S1, S2 present. Regular rate and rhythm, sinus rhythm on telemetry. Palpable peripheral pulses bilaterally. Bilateral lower extremity present. No calf pain or tenderness noted. SCDs present. GASTROINTESTINAL: Abdomen soft, nontender, nondistended. Active bowel sounds present 4 quadrants. Tolerating minimal diet. Positive flatus, last bowel movement 02/27 GENITOURINARY: Ramos present draining clear, yellow urine, output not documented INTEGUMENTARY: Skin is warm and dry with evidence of good perfusion. Thoracic incision well approximated and covered with dry intact dressing. NEUROLOGIC: Cranial nerves II through XII intact MUSKULOSKELETAL: Able to move all extremities, strength equal bilaterally PSYCHIATRIC: Alert and oriented to person place and time, appropriate affect, intact judgment and insight INVASIVE LINES AND TUBES: Right pleural chest tubes present and connected to wall suction, air leaks present in both with expiration. Right medial tube with 40 mL serosanguineous drainage overnight, 100 mL in the last 24 hours. Right posterior pleural chest tube with 120 mL serosanguineous drainage overnight, 300 mL in the last 24 hours. - Allied health notes Allied health notes reviewed: nursing - Labs CBC & Chem 7: 03/03/24 06:01 03/03/24 06:01 - Imaging and Cardiology Chest x-ray: report reviewed, image reviewed Assessment and Plan Assessment: Acute hypoxic respiratory failure secondary to acute infection in the right middle lobe Right midlung consolidation, right middle lobe syndrome with secondary pneumonia, status post bronchoscopy performed on 02/11/2024 and 02/22/24, atelectatic narrowed right middle lobe bronchus with evidence of bronchomalacia and anatomic distortion secondary to a previous right upper lobe resection, status post diagnostic thoracoscopy, open thoracotomy, right middle lobectomy, cryoablation of intercostal nerves VII through III Leukocytosis secondary to above Hyponatremia History of squamous cell carcinoma, status post wedge resection followed by completion right upper lobectomy Paroxysmal atrial fibrillation, on Eliquis as an outpatient, discontinued this admission Chronic obstructive pulmonary disease Chronic back pain on chronic narcotics History of tobacco dependence with recent cessation in December 2023 Benign prostatic hypertrophy Obesity Anxiety Depression Plan: Continue chest tubes to continuous wall suction, monitor for airleak resolution, monitor output Continue chest physical therapy, every 4 hours, continue to encourage use of flutter valve Antibiotics, bronchodilators, per pulmonology Continue Mucinex Wean oxygen as tolerated. Encourage use of incentive spirometry 10 times every hour while awake Continue to monitor daily chest x-rays Pain control per current medication regimen Continue amiodarone 200 mg, continue Lopressor with hold parameters Increase activity, ambulate as tolerated Continue knee-high MICHAEL hose during the day GI/DVT prophylaxis Medical management other comorbidities per primary care service More recommendations to follow based on patient's clinical course
[2024-03-04 08:39] LABS: African American GFR (CKD) >90 (>60 ml/min/1.73 sqM); Anion Gap 1 mmol/L; Blood Urea Nitrogen 8 mg/dL (9-20); Calcium 7.5 mg/dL (8.4-10.2); Carbon Dioxide 30 mmol/L (22-30); Chloride 102 mmol/L (98-107); Glucose 115 mg/dL (74-99); Magnesium 2.1 mg/dL (1.6-2.3); Non-African American GFR(CKD) >90 (>60 ml/min/1.73 sqM); Potassium 3.8 mmol/L (3.5-5.1); Sodium 133 mmol/L (137-145)
--- NOTE | 2024-03-04 14:49 | P.PN ---
Subjective Progress Note Date: 03/04/24 Principal diagnosis: Acute hypoxic respiratory failure with atelectatic and consolidated right middle lobe, status post right middle lobectomy postoperative day #4 This is a very pleasant 63-year-old male patient with a known history of chronic and ongoing tobacco dependence of 48 years, chronic obstructive pulmonary disease, chronic back pain, atrial fibrillation. He also has a history of a solitary right upper lobe pulmonary nodule that was positive for squamous cell carcinoma based on a previous wedge resection in December 2023. He was brought back into the hospital for a robotically assisted right upper lobe lobectomy on February 09, 2024. During that hospitalization he was found to have a right middle lobe collapse and had undergone bronchoscopy with BAL. No endobronchial lesions or mucous was identified. He was discharged home on February 13, 2024. He was seen in the emergency department on February 17, 2024 for increasing shortness of breath cough and congestion. He was given azithromycin and discharged to home. He returned to the emergency room again the following day February 18, 2024 with similar symptoms that seem to be worsening. He had a h nilda time sleeping and was having right sided chest pain. Increased mucus. Chest x-ray shows similar findings of a large predominant right perihilar opacity. Stable small right apical hydropneumothorax. Small increasing right pleural effusion. White count 16.6. Hemoglobin 10.7. Platelets 552. Sodium 127. Potassium 5.1. Bicarb 24. BUN 20. Creatinine 0.98. Glucose 104. Viral screen negative. He is seen today in consultation on the regular medical floor. He is currently sitting up in bed. Awake and alert in no acute distress. He is quite weak. He is maintaining O2 saturations in the low 90s on room air. 02/20/2024, the patient is being seen for a follow-up. Patient is post right upper lobectomy for non-small cell lung cancer. 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 The patient has a persistent atelectasis/pneumonia of the right middle lobe. Currently, the patient is hospitalized for worsening shortness of breath. Procalcitonin level is 0.47. Electrolytes are all within normal range with a BUN of 15 and a creatinine of 0.9. The white cell count is at 15.4 with a hemoglobin of 10.4 and a platelet count of 406. The right upper lobe resection was done on 02/10/2024 and it is consistent with benign lung without any residual malignancy. The lymph nodes are also negative for malignancy. The patient is currently on IV Rocephin. The patient is also on Symbicort as maintenance 2 puffs twice a day and IV fluids with normal saline at rate of 75 cc an hour. He is receiving nebulized albuterol 4 times a day. He is oxygen requirements are at 6 L with a pulse ox of 99% On 02/21/2024, the patient is being seen for a follow-up. The patient is on 5 L of oxygen by nasal cannula and the patient is pulse oxing 91%. Continues to have a congested cough. The blood culture was negative. The sputum sample was negative. The patient's white cell count is at 14 with a hemoglobin 9.9 and a platelet count of 658. BUN is 15 with a creatinine of 0.8 and sodium levels at 134. Remains on Ventolin nebulized treatments, Symbicort maintenance and IV Rocephin. The plan is to repeat the patient's bronchoscopy in a.m. and to reevaluate the right middle lobe bronchus. The chest x-ray from today is essentially unchanged. There is a masslike opacity in the right hilum which is probably an atelectatic right middle lobe. On 02/22/2024, patient is being seen for a follow-up. Earlier this morning, the patient was having significant respiratory distress and cough and congestion. He has required higher oxygen flow at 5 L/min nasal cannula with a pulse ox of 95%. Based on that, a CAT scan of the chest was completed this morning without contrast and the CAT scan showed right upper lobectomy, a cavity was seen in the right suprahilar area with a atelectatic right middle lobe consistent with right middle lobe syndrome, /consolidation/groundglass changes and the patient also had some groundglass opacities in the left upper lobe. Airspace disease also seen in the right with an air-fluid level within the cavity. Small right-sided pleural effusion was noted based on those findings, a bronchoscopy was performed today and as expected, the patient had significant narrowing of the right middle lobe bronchus. There was evidence of bronchomalacia. I was able to pass the bronchoscope to the right middle lobe bronchus and visualize the right middle lobe and right lower lobe. Therapeutic airway suctioning was done. 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 Based on those findings, the patient was started on IV Zosyn and antibiotic modification was done. He seems to be much more comfortable post bronchoscopy. He has been placed on anticoagulation regarding paroxysmal atrial fibrillation. His current rhythm has remained sinus and the patient will be taken off the anticoagulation. The sodium levels at 133, BUN 13 with a creatinine 0.8. The white cell count from yesterday was at 14.4 with a hemoglobin 9.9. The procalcitonin level is at 0.47. On 02/23/2024, the patient is being seen for a follow-up. The patient is post bronchoscopy was done yesterday and please refer to the documented report. Repeat chest x-ray was also done today and the patient's findings are essentiall y stable. There is a right suprahilar opacity which remains essentially unchanged and area of atelectatic/infected right middle lobe. Meanwhile, the patient remains on IV Zosyn. The white cell count is down to 11.7. Hemoglobin is stable at 9.0 and the patient was taken off the anticoagulation. Electrolytes are stable. BUN is 12 with a creatinine of 0.8. Awaiting the results of the bronchial lavage. Oxygenation is also stable and the patient remains on 5 L of oxygen by nasal cannula with a pulse ox of 98%. He is sitting up to bedside chair. He is awake and alert. Denies having any pain. He does report some ongoing shortness of breath and a congested cough. He gets short of breath with activity. He is afebrile for now. On today's evaluation of 02/24/2024, the patient is feeling better. His oxygenation is improved and the patient is currently down to 3 L of oxygen nasal cannula with pulse ox of 94%. A follow-up chest x-ray from today shows essentially normal interval change and there is volume loss and right midlung atelectasis/consolidation in addition to a right apical pneumothorax. There is ongoing diffuse groundglass pulmonary filtrates and small right-sided pleural effusion. Bronchoscopy and bronchial lavage was done. Cultures are still pending for now. There is polymicrobial on the Gram stain including few gram- positive cocci and rare gram-negative bacilli. The patient remains on IV Zosyn. The patient remains on Symbicort and DuoNeb the regiment [id number]. The patient is on Symbicort. No issues with pain. Cough and congestion has subsided. Cardiac rhythm is a sinus. The white cell count is 11 with a hemoglobin of 9 and a platelet count of 640. Electrolytes are all within normal limits. BUN is 12 with a creatinine 0.8. On 02/25/2024, the patient is feeling better. Less short of breath. Less bronchospastic and wheezy. He has been weaned down to 2 L of oxygen by nasal cannula. Bronchoscopy endobronchial lavage is not yielded any microbial growth. The patient has responded nicely to IV Zosyn. DuoNeb nebulized treatments a [id number]. Cough and congestion has subsided significantly. Repeat chest x-ray was done today and essentially there is no significant interval change. Small right-sided pleural effusion is seen. On today's evaluation of 02/26/2024, the patient is feeling better. Cough and congestion has subsided significantly. Cultures from the bronchioloalveolar lavage has been negative. The patient remains on IV Zosyn. He is currently on oxygen at 2 L/min nasal cannula. He remains on bronchodilators and steroids. Labs show a white cell count of 7.7 with a hemoglobin 9 and a platelet count of 710. Electrolytes are all within normal limits. Troponins are negative. The patient is seen today February 27, 2024 in follow-up on the regular medical floor. He is currently sitting up in a chair at the bedside. Awake and alert in no acute distress. He is maintaining O2 saturations in the 90s on 2 L/min per nasal cannula. He is afebrile. Hemodynamically stable. Chest x-ray continues to show ongoing masslike right perihilar opacity measuring up to 3.7 cm. Redemonstrated air-fluid level within the inferior aspect of the opacity. This is mostly the right middle lobe volume loss. Sputum and blood cultures revealed no growth. Bronchial wash cultures revealed no growth. White count 12 .6. Hemoglobin 9.1. Platelets 696. Sodium 137. Potassium 4.5. Bicarb 27. BUN 10. Creatinine 0.8. Glucose 166. He remains on DuoNeb inhalations, Symbicort, Solu-Medrol. Antibiotics in the form of Zosyn. Heparin for DVT prophylaxis. The patient is seen today February 28, 2024 in follow-up on the regular medical floor. He is currently awake and alert in no acute distress. Sitting up in a chair at the bedside. Maintaining good O2 saturations in the 90s on 2 L/min per nasal cannula. He has been afebrile. Hemodynamically stable. Bronchial wash cultures from 02/22/2024 revealed no growth. Blood cultures revealed no growth. Sputum culture revealed no growth. He remains on DuoNeb inhalations, Symbicort, Mucinex. Antibiotics in the form of Zosyn. Patient was seen today on 03/20, patient is doing well, relatively asymptomatic, scheduled for right middle lobectomy sometime later today. In the meantime the patient is doing well, no cough no wheezing no shortness of breath, remains on Zosyn. Remains on bronchodilators. WBC count today is 11.7 hemoglobin 10.2 electrolytes are normal renal profile is normal Seen today on 03/01/2024, patient is doing well, underwent diagnostic thoracoscopy open thoracotomy right middle lobectomy cryoablation of intercostal nerves VII through III patient is now in the ICU, sitting at the bedside chair, does not seem to be in any distress, on 3 L nasal cannula achieving 1250 cc on his incentive spirometry. Patient is hemodynamically stable, not on any pressors not requiring any inotropes. Medial and posterior right-sided chest tubes noted patient continues to have right apical pneumothorax and has continuous air leak noted.WBC count is 17.2 hemoglobin is 9.5 electrolytes are normal renal profile is normal Patient was seen today on 03/02/2024, patient is now postoperative day #2, seems to be doing fairly well.POD #2 diagnostic thoracoscopy, open thoracotomy, right middle lobectomy, cryoablation of intercostal nerves VII through III patient is sitting at the bedside chair, does not seem to be in any distress, remains on Zosyn remains on bronchodilators remains on 3 L nasal cannula achieving about 1500 cc on his incentive spirometry he is hemodynamically stable, airleak noted intermittently in both chest tubes continues to have right-sided pneumothorax. Currently however the patient is doing better than expected Seen today on 03/03/2024, patient is now postoperative day #3 patient is sitting at the bedside recliner, does not seem to be in any distress, denies shortness of breath, he does have some pain but seems to be fairly well-controlled at the surgical site/chest wall pain. 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 My on Zosyn remains on bronchodilators, continues to have air leak in the chest tubes, and continues to have right apical pneumothorax. WBC count is 11 hemoglobin is 8.7 electrolytes are normal renal profile is normal dramatic improvement in his WBC count for the first time is noted, was as high as 20.2 yesterday Patient was seen today on 11/18, basically much better today, feeling better breathing easier he is now postoperative day #4 continues to have pneumothorax on the right side continues to have air leak but clinically the patient is feeling great. Both chest tubes remain in place on the right side. Continues to have air leak. WBC count is 7.1 hemoglobin 8.4 electrolytes are normal renal profile is normal Objective - Vital Signs Vital signs: Vital Signs Temp 97.7 F 03/03/24 20:10 Pulse 68 03/04/24 11:55 Resp 16 03/04/24 11:20 BP 107/57 03/04/24 11:20 Pulse Ox 99 03/04/24 11:20 FiO2 Intake & Output 03/03/24 03/04/24 03/04/24 18:59 06:59 18:59 Intake Total 816 118 Output Total 500 Balance 816 -500 118 Weight 100.7 kg Intake: Intake, IV Titration 100 Amount Piperacillin-Tazobactam 3 100 .375 gm In Sodium Chloride 0.9% 100 ml @ 25 mls/hr IVPB Q8H [facility] Rx#: [id number] Oral 716 118 Output: Chest Tube Drainage 200 Chest Tube Right 150 Posterior Chest right posterior medial 50 chest tube Urine 300 Other: Voiding Method Indwelling Catheter Indwelling Catheter Indwelling Catheter ABP, PAP, CO, CI - Last Documented Arterial Blood Pressure 105/65 - Exam GENERAL EXAM: Alert, in no distress Head: Atraumatic normocephalic EYES: Normal reaction of pupils, equal size. NOSE: Clear with pink turbinates. THROAT: No erythema or exudates. NECK: No masses, no JVD. CHEST: No chest wall deformity. LUNGS: Right-sided chest tubes noted diminished breath sound bilaterally no rhonchi no wheezes CVS: S1 and S2 normal with no audible murmur, regular rhythm. ABDOMEN: No hepatosplenomegaly, normal bowel sounds, no guarding or rigidity. SKIN: No rashes CENTRAL NERVOUS SYSTEM: No focal deficits, tone is normal in all 4 extremities. EXTREMITIES: 1+ bipedal peripheral edema. No clubbing, no cyanosis. Peripheral pulses are intact. - Labs CBC & Chem 7: 03/04/24 08:06 03/04/24 08:06 Labs: Abnormal Lab Results - Last 24 Hours (Table) 03/04/24 03/04/24 Range/Units 08:06 08:06 RBC 2.83 L (4.30-5.90) m/uL Hgb 8.4 L (13.0-17.5) gm/dL Hct 26.1 L (39.0-53.0) % Sodium 133 L (137-145) mmol/L BUN 8 L (9-20) mg/dL Glucose 115 H (74-99) mg/dL Calcium 7.5 L (8.4-10.2) mg/dL Microbiology - Last 24 Hours (Table) 02/19/24 11:51 Legionella Culture - Final Sputum Assessment and Plan Assessment: Impression: Status post diagnostic thoracoscopy, open thoracotomy, right middle lobectomy, cryoablation of intercostal nerves VII through III, postoperative day #4 Acute hypoxemic respiratory failure, multifactorial patient required right middle lobectomy yesterday remains on antibiotics which we have initiated initially/Zosyn. Recent discharge February 13, 2024 following a robotically assisted right upper lobectomy, for stage I bronchogenic carcinoma, squamous cell, T1b, N0 M0 Atrial fibrillation with RVR, post lobectomy Right middle lobe persistent collapse requiring lobectomy Prior wedge resection, right upper lobe solitary pulmonary nodule, which was positive for squamous cell carcinoma, December 27, 2023 Chronic and ongoing tobacco dependence of 48 years COPD Chronic back pain Recommendation: Continue present supportive care measures continue bronchodilators Continue incentive spirometry Continue antibiotics Continue GI DVT prophylaxis Continue ambulation Daily x-rays of the chest Will follow Time with Patient: Less than 30
--- NOTE | 2024-03-04 16:40 | P.PN ---
Subjective Progress Note Date: 03/04/24 Principal diagnosis: postop pneumothorax, lung cancer, anemia, pneumonia,repeat surgical intervention to remove right lung patient awake alert oriented 3 complains of chest pain dyspnea, status post lung resection 02/25/2024 Patient awake alert oriented 3 vital signs are stable patient is afebrile, patient has been complaining of intermittent chest discomfort, EKG no acute changes' 02/26/2024 Vital signs are stable patient is afebrile patient still complaining of right ch est discomfort 03/03/2024 Vital signs are stable patient is postop lung resection, complains of signi ficant pain right chest secondary to surgical incision 03/04/2024 Patient awake alert oriented 3 vital signs are stable patient is currently afebrile, postop surgical chest pain noted but improved, patient is up in chair Objective - Vital Signs Vital signs: Vital Signs Temp 97.7 F 03/03/24 20:10 Pulse 74 03/04/24 15:45 Resp 16 03/04/24 14:48 BP 129/62 03/04/24 14:48 Pulse Ox 100 03/04/24 14:48 FiO2 Intake & Output 03/03/24 03/04/24 03/04/24 18:59 06:59 18:59 Intake Total 816 118 Output Total 500 110 Balance 816 -500 8 Weight 100.7 kg Intake: Intake, IV Titration 100 Amount Piperacillin-Tazobactam 3 100 .375 gm In Sodium Chloride 0.9% 100 ml @ 25 mls/hr IVPB Q8H [facility] Rx#: [id number] Oral 716 118 Output: Chest Tube Drainage 200 110 Chest Tube Right 150 50 Posterior Chest right posterior medial 50 60 chest tube Urine 300 Other: Voiding Method Indwelling Catheter Indwelling Catheter Indwelling Catheter ABP, PAP, CO, CI - Last Documented Arterial Blood Pressure 105/65 - Exam General: [Patient awake, alert and oriented times 3. Patient in no acute distress.] HEENT: [PERRL. EOMI. No pharyngeal erythema or exudate.] Neck: [No adenopathy.] Cardiac: [Heart regular in rate and rhythm. No S3. No S4. No clicks, rubs. No murmur.] Lungs: diminished right lung field lung tovar,with bibasilar wheezes Healing surgical scar Abdomen: [No mass. No organomegaly. Bowel sounds presnt and normoactive in all 4 quadrants.] Extremes: [No edema no cyanosis no claudication normal pulses] Musculoskeletal: [No joint erythema, edema or tenderness.] Skin: [No rash.] Neurologic: [No lateralizing deficits. CN II - XII grossly intact.] Lymphatic: [No adenopathy.] - Labs CBC & Chem 7: 03/04/24 08:06 03/04/24 08:06 Labs: Abnormal Lab Results - Last 24 Hours (Table) 03/04/24 03/04/24 Range/Units 08:06 08:06 RBC 2.83 L (4.30-5.90) m/uL Hgb 8.4 L (13.0-17.5) gm/dL Hct 26.1 L (39.0-53.0) % Sodium 133 L (137-145) mmol/L BUN 8 L (9-20) mg/dL Glucose 115 H (74-99) mg/dL Calcium 7.5 L (8.4-10.2) mg/dL Microbiology - Last 24 Hours (Table) 02/19/24 11:51 Legionella Culture - Final Sputum Assessment and Plan (1) Folic acid deficiency Current Visit: Yes Status: Acute Priority: Medium Code(s): E53.8 - DEFICIENCY OF OTHER SPECIFIED B GROUP VITAMINS SNOMED Code(s): 859054049 (2) Hyponatremia Current Visit: Yes Status: Acute Code(s): E87.1 - HYPO-OSMOLALITY AND HYPONATREMIA SNOMED Code(s): 95860400 (3) Hyponatremia Current Visit: Yes Status: Acute Code(s): E87.1 - HYPO-OSMOLALITY AND HYPONATREMIA SNOMED Code(s): 31271506 (4) Lung mass Current Visit: Yes Status: Acute Code(s): R91.8 - OTHER NONSPECIFIC ABNORMAL FINDING OF LUNG FIELD SNOMED Code(s): 672629360 (5) Normocytic anemia Current Visit: Yes Status: Acute Priority: Medium Code(s): D64.9 - ANEMIA, UNSPECIFIED SNOMED Code(s): 137618750 (6) Pneumonia Current Visit: Yes Status: Acute Priority: High Code(s): J18.9 - PNEUMONIA , UNSPECIFIED ORGANISM SNOMED Code(s): 128796694 (7) Postoperative pneumonia Current Visit: Yes Status: Acute Priority: High Code(s): J95.89 - OTH PO STPROC COMPLICATIONS AND DISORDERS OF RESP SYS, NEC; J18.9 - PNEUMONIA, UNSPECIFIED ORGANISM SNOMED Code(s): 926789569 (8) Acute anxiety Current Visit: No Status: Acute Code(s): F41.9 - ANXIETY DISORDER, UNSPECIFIED SNOMED Code(s): 71856095 Plan: continue IV antibiotic therapy Replace folic acid thoracic surgery postop note reviewed Continue to follow closely
[2024-03-05 07:49] LABS: HCT 26.1 % (39.0-53.0); HGB 8.2 gm/dL (13.0-17.5); Hypochromasia Marked; MCH 29.3 pg (25.0-35.0); MCHC 31.5 g/dL (31.0-37.0); MCV 93.3 fL (80.0-100.0); Mean Platelet Volume 6.8; Platelet Count 392 k/uL (150-450); RDW 14.7 % (11.5-15.5); WBC 4.9 k/uL (3.8-10.6)
[2024-03-05 08:07] LABS: African American GFR (CKD) >90 (>60 ml/min/1.73 sqM); Anion Gap 3 mmol/L; Blood Urea Nitrogen 8 mg/dL (9-20); Calcium 7.5 mg/dL (8.4-10.2); Carbon Dioxide 30 mmol/L (22-30); Chloride 102 mmol/L (98-107); Glucose 85 mg/dL (74-99); Non-African American GFR(CKD) 85 (>60 ml/min/1.73 sqM); Sodium 135 mmol/L (137-145)
--- NOTE | 2024-03-05 08:17 | P.PN ---
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 Previous medical history of right upper lobe neoplasm with pathology consistent with squamous cell carcinoma status post robotic assisted thoracoscopic wedge resection right upper lobe mass with hilar and mediastinal lymph node dissection and subsequent robotic assisted thoracoscopic completion right upper lobectomy, paroxysmal atrial fibrillation on Eliquis for anticoagulation outpatient, COPD, obesity, previous tobacco dependence with recent cessation, chronic back pain with chronic narcotic dependency, benign prostatic hypertrophy, anxiety and depression POD #5 diagnostic thoracoscopy, open thoracotomy, right middle lobectomy, cryoablation of intercostal nerves VII through III The patient was seen and examined this morning sitting up in a recliner on the cardiac stepdown unit in no acute distress eating breakfast. The patient continues to complain of pain to his right chest wall, denies shortness of breath. Remains on IV Zosyn for antibiotic coverage per pulmonology, all microbiology finalized negative, remains afebrile. Remains on bronchodilators per pulmonology. Currently on 3 L nasal cannula with oxygen saturation 100%, decreased to room air, able to achieve 2000 mL on his incentive spirometry. Patient in sinus rhythm on the monitor, hemodynamically stable. Medial and posterior right chest tubes present to continuous wall suction, air leak present in both with expiration although a bit less aggressive than yesterday. Chest x- ray, labs reviewed. No other new concerns. Objective - Vital Signs Vital signs: Vital Signs Temp 98.1 F 03/04/24 20:00 Pulse 67 03/05/24 03:22 Resp 18 03/05/24 03:22 BP 109/64 03/05/24 03:22 Pulse Ox 99 03/05/24 03:22 FiO2 Intake & Output 03/04/24 03/05/24 03/05/24 18:59 06:59 18:59 Intake Total 958 Output Total 1410 570 Balance -452 -570 Weight 100.9 kg Intake: Oral 958 Output: Chest Tube Drainage 110 120 Chest Tube Right 50 60 Posterior Chest right posterior medial 60 60 chest tube Urine 1300 450 Other: Voiding Method Indwelling Catheter Urinal ABP, PAP, CO, CI - Last Documented Arterial Blood Pressure 105/65 - Exam CONSTITUTIONAL: Appears mostly comfortable although does continue to complain of pain at his surgical site, cooperative, no acute distress RESPIRATORY: Lungs sounds diminished bilaterally, expiratory wheeze present on the right side. Respirations even, nonlabored. Currently on 3 L nasal cannula with oxygen saturation 100%, decreased to room air. Able to achieve 2000 mL on incentive spirometry. Strong cough. CARDIOVASCULAR: S1, S2 present. Regular rate and rhythm, sinus rhythm on telemetry. Palpable peripheral pulses bilaterally. Bilateral lower extremity present. No calf pain or tenderness noted. SCDs present. GASTROINTESTINAL: Abdomen soft, nontender, nondistended. Active bowel sounds present 4 quadrants. Tolerating minimal diet. Positive bowel movement 03/04 x2 per patient, not documented in [employer] GENITOURINARY: Ramos discontinued yesterday, continues to void, 1750 mL in the last 24 hours INTEGUMENTARY: Skin is warm and dry with evidence of good perfusion. Thoracic incision well approximated and covered with dry intact dressing. NEUROLOGIC: Cranial nerves II through XII intact MUSKULOSKELETAL: Able to move all extremities, strength equal bilaterally PSYCHIATRIC: Alert and oriented to person place and time, appropriate affect, intact judgment and insight INVASIVE LINES AND TUBES: Right pleural chest tubes present and connected to wall suction, air leaks present in both with expiration. Right medial tube with 60 mL serosanguineous drainage overnight, 140 mL in the last 24 hours. Right posterior pleural chest tube with 60 mL serosanguineous drainage overnight, 200 mL in the last 24 hours. - Allied health notes Allied health notes reviewed: nursing - Labs CBC & Chem 7: 03/05/24 06:15 03/05/24 06:15 Labs: Abnormal Lab Results - Last 24 Hours (Table) 03/04/24 03/04/24 03/05/24 Range/Units 08:06 08:06 06:15 RBC 2.83 L 2.80 L (4.30-5.90) m/uL Hgb 8.4 L 8.2 L (13.0-17.5) gm/dL Hct 26.1 L 26.1 L (39.0-53.0) % Sodium 133 L (137-145) mmol/L BUN 8 L (9-20) mg/dL Glucose 115 H (74-99) mg/dL Calcium 7.5 L (8.4-10.2) mg/dL 03/05/24 Range/Units 06:15 RBC (4.30-5.90) m/uL Hgb (13.0-17.5) gm/dL Hct (39.0-53.0) % Sodium 135 L (137-145) mmol/L BUN 8 L (9-20) mg/dL Glucose (74-99) mg/dL Calcium 7.5 L (8.4-10.2) mg/dL Microbiology - Last 24 Hours (Table) 02/19/24 11:51 Legionella Culture - Final Sputum - Imaging and Cardiology Chest x-ray: image reviewed Assessment and Plan Assessment: Acute hypoxic respiratory failure secondary to acute infection in the right middle lobe Right midlung consolidation, right middle lobe syndrome with secondary pneumonia, status post bronchoscopy performed on 02/11/2024 and 02/22/24, atelectatic narrowed right middle lobe bronchus with evidence of bronchomalacia and anatomic distortion secondary to a previous right upper lobe resection, status post diagnostic thoracoscopy, open thoracotomy, right middle lobectomy, cryoablation of intercostal nerves VII through III Leukocytosis secondary to above Hyponatremia History of squamous cell carcinoma, status post wedge resection followed by completion right upper lobectomy Paroxysmal atrial fibrillation, on Eliquis as an outpatient, discontinued this admission Chronic obstructive pulmonary disease Chronic back pain on chronic narcotics History of tobacco dependence with recent cessation in December 2023 Benign prostatic hypertrophy Obesity Anxiety Depression Plan: Chest tubes placed to waterseal, will repeat chest x-ray in 4 hours Continue chest physical therapy, every 4 hours, continue to encourage use of flutter valve Antibiotics, bronchodilators, per pulmonology Continue Mucinex Wean oxygen as tolerated. Encourage use of incentive spirometry 10 times every hour while awake Continue to monitor daily chest x-rays Pain control per current medication regimen Continue lopressor with hold parameters Increase activity, ambulate as tolerated Continue knee-high MICHAEL hose during the day GI/DVT prophylaxis Medical management other comorbidities per primary care service More recommendations to follow based on patient's clinical course
--- NOTE | 2024-03-05 11:42 | XR ---
EXAMINATION TYPE: XR chest 1V portable DATE OF EXAM: 03/05/2024 7:01 AM COMPARISON: 03/04/2024 CLINICAL INDICATION: Male, 63 years old with history of Right upper and middle lobectomy, TECHNIQUE: XR chest 1V portable view(s) obtained. FINDINGS: The heart size is normal. No shift of the mediastinum to the right post lobectomy The pulmonary vasculature is normal. 2 right-sided chest tubes are present. Right apical pneumothorax appears stable. Surgical sutures cintia ng the upper margin of the lung. Mild infiltrate which may be some atelectasis at the right base. IMPRESSION: 1. Stable right apical pneumothorax post lobectomy. Chest tubes remain in position [facility], , 03/05/2024 11:40 AM
--- NOTE | 2024-03-05 11:54 | P.PN ---
Subjective Progress Note Date: 03/05/24 H&P Date: 02/19/24 Chief Complaint: Cough, diaphoresis, shortness of breath Brian is a 63-year-old white male with known squamous cell carcinoma. He had underwent a mediastinal lymph node dissection and wedge resection of the lung on December 27, 2023. He returned back and February 08 for a right upper lobe lobectomy. While here he had collapse of the right middle lung and underwent a bronchoscopy and bronc and BAL. He developed a complication of paroxysmal atrial fibrillation during his stay. He did improve and was sent home in stable condition. He returned emergency room on 1121 with shortness of breath and cough was sent home. He returned again on 02/18/2024 with worsening symptoms. Found to have a leukocytosis coughing and not feeling well. Also complaining of left-sided chest pain and right-sided chest pain at his surgical site. This morning he isb in sinus rhythm per telemetry heart rates controlled in the 80s O2 saturation 93% on room air. Laboratory studies now show a leukocytosis 16 6 hemoglobin 10.7 and a left shift with the neutrophils at 14,600. Blood chemistries do show a hyponatremia with a sodium 127 chloride 95, calcium is 7.9. Total protein is 6.2 with a albumin of 3.2. 02/20/2024: Brian was reevaluated for his right middle lobe pneumonia. Vital signs show he is afebrile heart rate and respiratory rate blood pressure control. He is on 6 L of O2 via nasal cannula. WBC count is improved now 15.4, hemoglobin 10.4 neutrophils are 14.23, chemistries show sodium 133. Sputum and blood cultures pending. 02/21/2024: Parents feeling slightly better today. He is being treated for his right middle lobe pneumonia. His regular lobe and collapsed after his right upper lobe surgical assisted lobectomy. He remains on ceftriaxone and azithromycin for antibiotics apixaban for anticoagulation acetylcysteine and guaifenesin for mucus production. He is on Symbicort and Atrovent for inhalation therapy at this time. 02/22/2024: Patient could not be seen today as he was down for his bronchoscopy. Labs and chart are reviewed today. Patient remains on Zosyn. He has Eliquis for anticoagulation. He has DuoNeb updrafts or shortness of breath is on Mucomyst and Symbicort. 02/23/2024 patient awake alert oriented 3 complains of chest pain dyspnea 02/24/2024 patient awake alert oriented 3 complains of chest pain dyspnea, status post lung resection 02/25/2024 Patient awake alert oriented 3 vital signs are stable patient is afebrile, patient has been complaining of intermittent chest discomfort, EKG no acute changes' 02/26/2024 Patient awake alert oriented 3 vital signs are stable patient is currently afebrile, no new chest pain today 02/27/24 continues on Zosyn, nebulized bronchodilators, afebrile, WBC 12.66. , Bronch ,sputum and blood cultures reporting negative.ambulated in the hallway earlier this morning, tolerated exertion well. Currently sitting up in chair, maintaining O2 sats in the mid 90s on 2 L nasal cannula. Chest x-ray reporting ongoing masslike right perihilar opacity measuring up to 3.7 cm. Redemonstrated air-fluid level within the inferior aspect of the opacity. Interstitial density in the left lung shows some improvement. Reports chest pain with coughing , receiving [place] scheduled and Dilaudid prn.CTS consulted, recommendations pending. Hemoglobin 9.1, platelets 696 .renal function stable. 02/28/2024 evaluated by CTS and patient is scheduled for right mid lobe lobectomy tomorrow. Complains of left upper molar caries with fracture, Peridex mouthwash ordered. Afebrile, maintained on Zosyn, nebulized bronchodilators, Symbicort and Mucinex. O2 sats in the 90s on 2 L nasal cannula. 02/29/2024 NPO, sitting up in chair, right middle lobe lobectomy scheduled for early this afternoon. Denies chest pain, palpitations or shortness of breath. Maintaining O2 sats in the mid to high 90s on 2 L nasal cannula. continues on Zosyn, afebrile, WBC 11.7, hemoglobin 10.2, renal function and electrolytes within normal limits. 03/01/2024 status post diagnostic thoracic appendectomy, open thoracotomy, right middle lobe lobectomy, cryoablation of intercostal nerves VII through III, postop day #1. Significant pain throughout the night, [place] was added to pain med regime in addition to Dilaudid LAMP WIRER with better control currently. Microbiology negative, continues on Zosyn, afebrile, WBC decreased to 17.2. Hemoglobin 9.5, platelets 473, sodium 131, renal function stable, blood sugars controlled, calcium 7.4. Blood pressure soft, mean arterial pressures in the 70s, beta-daniele held. Chest x-ray reporting decreasing size of right apical pneumothorax currently 4.6 cm versus 5.8 cm previously, [address] Similar postsurgical change right hilum with corresponding volume loss right hemothorax following lobectomy. Ongoing diffuse interstitial opacities, possible interstitial pulmonary edema. Maintaining O2 sats in the 90s on 3 L nasal cannula. Denies shortness of breath. 03/02/2024 transferred out of ICU to stepdown unit yesterday. Denies shortness of breath. Maintaining O2 sats in the 90s on 3 L nasal cannula. Continues on Zosyn. Afebrile, labs pending. telemetry sinus rhythm. Reporting right chest wall pain; currently on Dilaudid LAMP WIRER as well as [place]'s as per cardiothoracic surgery. Denies lightheadedness dizziness or focal deficits. 03/05/2024 sitting up in chair,complains of right chest wall pain. Chest tubes to water suction, chest x-ray pending. telemetry sinus rhythm. Denies shortness of breath, maintaining O2 sats in the mid to high 90s on room air. Continues on Zosyn, afebrile, normal WBC. Objective - Vital Signs Vital signs: Vital Signs Temp 98 F 03/05/24 08:00 Pulse 72 03/05/24 09:22 Resp 18 03/05/24 08:00 BP 119/54 03/05/24 08:00 Pulse Ox 97 03/05/24 09:02 FiO2 Intake & Output 03/04/24 03/05/24 03/05/24 18:59 06:59 18:59 Intake Total 958 240 Output Total 1410 570 325 Balance -452 -570 -85 Weight 100.9 kg Intake: Oral 958 240 Output: Chest Tube Drainage 110 120 0 Chest Tube Right 50 60 0 Posterior Chest right posterior medial 60 60 0 chest tube Urine 1300 450 325 Other: Voiding Method Indwelling Catheter Urinal Urinal # Voids 1 ABP, PAP, CO, CI - Last Documented Arterial Blood Pressure 105/65 - Exam General: Alert and oriented x 3, sitting up in chair,no acute distress.] HEENT: [Normocephalic, PERRL. EOMI. conjunctiva normal.MMM. Neck: Supple, no JVD Cardiac: [Heart regular in rate and rhythm. No S3. No S4. No clicks, rubs. No murmur.] Lungs: Unlabored, equal air entry, right sided expiratory wheeze. Right medial and right posterior chest tubes to waterseal. Abdomen: Soft, nontender, nondistended, no organomegaly.+BS Extremes: No edema, no cyanosis no claudication normal pulses, wearing teds.] Skin: [Warm and dry, no rash noted.] Neurologic: CN II - XII grossly intact.] - Labs CBC & Chem 7: 03/05/24 06:15 03/05/24 06:15 Labs: Abnormal Lab Results - Last 24 Hours (Table) 03/05/24 03/05/24 Range/Units 06:15 06:15 RBC 2.80 L (4.30-5.90) m/uL Hgb 8.2 L (13.0-17.5) gm/dL Hct 26.1 L (39.0-53.0) % Sodium 135 L (137-145) mmol/L BUN 8 L (9-20) mg/dL Calcium 7.5 L (8.4-10.2) mg/dL Microbiology - Last 24 Hours (Table) 02/19/24 11:51 Legionella Culture - Final Sputum Assessment and Plan Assessment: Acute hypoxic respiratory failure, positive groundglass changes bilaterally, chest x-ray reporting ongoing masslike right perihilar opacity measuring up to 3.7 cm. Redemonstrated air-fluid level within the inferior aspect of the opacity. Interstitial density in the left lung shows some improvement. status post diagnostic thoracic appendectomy, open thoracotomy, right middle lobe lobectomy, cryoablation of intercostal nerves VII through III, 02/29/2024. Recent lobectomy of right upper lung secondary to Squamous cell lung CA, discharged 02/12 Leukocytosis, resolved Right middle lobe atelectasis status post bronchoscopy 02/11/2024. Bronchial lavage cultures reporting negative. 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 Complains of canker sores, lactobacillus ordered. chest x-ray post chest tubes placed to waterseal pending. aggressive pulmonary toileting with CPT, flutter valve nebulized bronchodilators, Symbicort, Zosyn. Pain management, DVT prophylaxis as per CTS. Increase ambulation as tolerated. The impression and plan of care has been dictated as directed. : I performed a history and examination of this patient, discussed the same with the dictator. I agree with the dictator's note ,documented as a scribe. Any additional findings or plans will be noted.
[2024-03-05] MEDS: LACTOBACILLUS ACIDOPHILUS/PECT 1 EACH CAPSULE PO SCH (12:45)
--- NOTE | 2024-03-05 13:32 | XR ---
EXAMINATION TYPE: XR chest 2V DATE OF EXAM: 03/05/2024 12:31 PM COMPARISON: 03/05/2024 earlier exam CLINICAL INDICATION: Male, 63 years old with history of Post right upper and middle lobectomy, off CT sxn, TECHNIQUE: XR chest 2V view(s) obtained. FINDINGS: The heart size is normal. The pulmonary vasculature is normal. Mild diffuse infiltrate is within the residual right lung. Two Right-sided chest tubes are present. Mild increasing right apical pneumothorax is present post lo bectomy IMPRESSION: 1. Mild increase right apical pneumothorax 2. Nonspecific infiltrate right base may be atelectasis. [facility], , 03/05/2024 1:29 PM
--- NOTE | 2024-03-05 16:04 | P.PN ---
Subjective Progress Note Date: 03/05/24 Principal diagnosis: Lung cancer. This is a very pleasant 63-year-old male patient with a known history of chronic and ongoing tobacco dependence of 48 years, chronic obstructive pulmonary disease, chronic back pain, atrial fibrillation. He also has a history of a solitary right upper lobe pulmonary nodule that was positive for squamous cell carcinoma based on a previous wedge resection in December 2023. He was brought back into the hospital for a robotically assisted right upper lobe lobectomy on February 09, 2024. During that hospitalization he was found to have a right middle lobe collapse and had undergone bronchoscopy with BAL. No endobronchial lesions or mucous was identified. He was discharged home on February 13, 2024. He was seen in the emergency department on February 17, 2024 for increasing shortness of breath cough and congestion. He was given azithromycin and discharged to home. He returned to the emergency room again the following day February 18, 2024 with similar symptoms that seem to be worsening. He had a hard time sleeping and was having right sided chest pain. Increased mucus. Chest x-ray shows similar findings of a large predominant right perihilar opacity. Stable small right apical hydropneumothorax. Small increasing right pleural effusion. White count 16.6. Hemoglobin 10.7. Platelets 552. Sodium 127. Potassium 5.1. Bicarb 24. BUN 20. Creatinine 0.98. Glucose 104. Viral screen negative. He is seen today in consultation on the regular medical floor. He is currently sitting up in bed. Awake and alert in no acute distress. He is quite weak. He is maintaining O2 saturations in the low 90s on room air. 02/20/2024, the patient is being seen for a follow-up. Patient is post right upper lobectomy for non-small cell lung cancer. 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 The patient has a persistent atelectasis/pneumonia of the right middle lobe. Currently, the patient is hospitalized for worsening shortness of breath. Procalcitonin level is 0.47. Electrolytes are all within normal range with a BUN of 15 and a creatinine of 0.9. The white cell count is at 15.4 with a hemoglobin of 10.4 and a platelet count of 406. The right upper lobe resection was done on 02/10/2024 and it is consistent with benign lung without any residual malignancy. The lymph nodes are also negative for malignancy. The patient is currently on IV Rocephin. The patient is also on Symbicort as maintenance 2 puffs twice a day and IV fluids with normal saline at rate of 75 cc an hour. He is receiving nebulized albuterol 4 times a day. He is oxygen requirements are at 6 L with a pulse ox of 99% On 02/21/2024, the patient is being seen for a follow-up. The patient is on 5 L of oxygen by nasal cannula and the patient is pulse oxing 91%. Continues to have a congested cough. The blood culture was negative. The sputum sample was negative. The patient's white cell count is at 14 with a hemoglobin 9.9 and a platelet count of 658. BUN is 15 with a creatinine of 0.8 and sodium levels at 134. Remains on Ventolin nebulized treatments, Symbicort maintenance and IV Rocephin. The plan is to repeat the patient's bronchoscopy in a.m. and to reevaluate the right middle lobe bronchus. The chest x-ray from today is essentially unchanged. There is a masslike opacity in the right hilum which is probably an atelectatic right middle lobe. On 02/22/2024, patient is being seen for a follow-up. Earlier this morning, the patient was having significant respiratory distress and cough and congestion. He has required higher oxygen flow at 5 L/min nasal cannula with a pulse ox of 95%. Based on that, a CAT scan of the chest was completed this morning without contrast and the CAT scan showed right upper lobectomy, a cavity was seen in the right suprahilar area with a atelectatic right middle lobe consistent with right middle lobe syndrome, /consolidation/groundglass changes and the patient also had some groundglass opacities in the left upper lobe. Airspace disease also seen in the right with an air-fluid level within the cavity. Small right-sided pleural effusion was noted based on those findings, a bronchoscopy was performed today and as expected, the patient had significant narrowing of the right middle lobe bronchus. There was evidence of bronchomalacia. I was able to pass the bronchoscope to the right middle lobe bronchus and visualize the right middle lobe and right lower lobe. Therapeutic airway suctioning was done. 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 Based on those findings, the patient was started on IV Zosyn and antibiotic modification was done. He seems to be much more comfortable post bronchoscopy. He has been placed on anticoagulation regarding paroxysmal atrial fibrillation. His current rhythm has remained sinus and the patient will be taken off the anticoagulation. The sodium levels at 133, BUN 13 with a creatinine 0.8. The white cell count from yesterday was at 14.4 with a hemoglobin 9.9. The procalcitonin level is at 0.47. On 02/23/2024, the patient is being seen for a follow-up. The patient is post bronchoscopy was done yesterday and please refer to the documented report. Repeat chest x-ray was also done today and the patient's findings are essentially stable. There is a right suprahilar opacity which remains essentially unchanged and area of atelectatic/infected right middle lobe. Meanwhile, the patient remains on IV Zosyn. The white cell count is down to 11.7. Hemoglobin is stable at 9.0 and the patient was taken off the anticoagulation. Electrolytes are stable. BUN is 12 with a creatinine of 0.8. Awaiting the results of the bronchial lavage. Oxygenation is also stable and the patient remains on 5 L of oxygen by nasal cannula with a pulse ox of 98%. He is sitting up to bedside chair. He is awake and alert. Denies having any pain. He does report some ongoing shortness of breath and a congested cough. He gets short of breath with activity. He is afebrile for now. On today's evaluation of 02/24/2024, the patient is feeling better. His oxygenation is improved and the patient is currently down to 3 L of oxygen nasal cannula with pulse ox of 94%. A follow-up chest x-ray from today shows essentially normal interval change and there is volume loss and right midlung atelectasis/consolidation in addition to a right apical pneumothorax. There is ongoing diffuse groundglass pulmonary filtrates and small right-sided pleural effusion. Bronchoscopy and bronchial lavage was done. Cultures are still pending for now. There is polymicrobial on the Gram stain including few gram- positive cocci and rare gram-negative bacilli. The patient remains on IV Zosyn. The patient remains on Symbicort and DuoNeb the regiment [id number]. The patient is on Symbicort. No issues with pain. Cough and congestion has subsided. Cardiac rhythm is a sinus. The white cell count is 11 with a hemoglobin of 9 and a platelet count of 640. Electrolytes are all within normal limits. BUN is 12 with a creatinine 0.8. On 02/25/2024, the patient is feeling better. Less short of breath. Less bronchospastic and wheezy. He has been weaned down to 2 L of oxygen by nasal cannula. Bronchoscopy endobronchial lavage is not yielded any microbial growth. The patient has responded nicely to IV Zosyn. DuoNeb nebulized treatments [id number]. Cough and congestion has subsided significantly. Repeat chest x-ray was done today and essentially there is no significant interval change. Small right-sided pleural effusion is seen. On today's evaluation of 02/26/2024, the patient is feeling better. Cough and congestion has subsided significantly. Cultures from the bronchioloalveolar lavage has been negative. The patient remains on IV Zosyn. He is currently on oxygen at 2 L/min nasal cannula. He remains on bronchodilators and steroids. Labs show a white cell count of 7.7 with a hemoglobin 9 and a platelet count of 710. Electrolytes are all within normal limits. Troponins are negative. The patient is seen today February 27, 2024 in follow-up on the regular medical floor. He is currently sitting up in a chair at the bedside. Awake and alert in no acute distress. He is maintaining O2 saturations in the 90s on 2 L/min per nasal cannula. He is afebrile. Hemodynamically stable. Chest x-ray continues to show ongoing masslike right perihilar opacity measuring up to 3.7 cm. Redemonstrated air-fluid level within the inferior aspect of the opacity. This is mostly the right middle lobe volume loss. Sputum and blood cultures revealed no growth. Bronchial wash cultures revealed no growth. White count 12.6. Hemoglobin 9.1. Platelets 696. Sodium 137. Potassium 4.5. Bicarb 27. BUN 10. Creatinine 0.8. Glucose 166. He remains on DuoNeb inhalations, Symbicort, Solu-Medrol. Antibiotics in the form of Zosyn. Heparin for DVT pr ophylaxis. The patient is seen today February 28, 2024 in follow-up on the regular medical floor. He is currently awake and alert in no acute distress. Sitting up in a chair at the bedside. Maintaining good O2 saturations in the 90s on 2 L/min per nasal cannula. He has been afebrile. Hemodynamically stable. Bronchial wash cultures from 02/22/2024 revealed no growth. Blood cultures revealed no growth. Sputum culture revealed no growth. He remains on DuoNeb inhalations, Symbicort, Mucinex. Antibiotics in the form of Zosyn. Patient was seen today on 03/20, patient is doing well, relatively asymptomatic, scheduled for right middle lobectomy sometime later today. In the meantime the patient is doing well, no cough no wheezing no shortness of breath, remains on Zosyn. Remains on bronchodilators. WBC count today is 11.7 hemoglobin 10.2 electrolytes are normal renal profile is normal Seen today on 03/01/2024, patient is doing well, underwent diagnostic thoracoscopy open thoracotomy right middle lobectomy cryoablation of intercostal nerves VII through III patient is now in the ICU, sitting at the bedside chair, does not seem to be in any distress, on 3 L nasal cannula achieving 1250 cc on his incentive spirometry. Patient is hemodynamically stable, not on any pressors not requiring any inotropes. Medial and posterior right-sided chest tubes noted patient continues to have right apical pneumothorax and has continuous air leak noted.WBC count is 17.2 hemoglobin is 9.5 electrolytes are normal renal profile is normal Patient was seen today on 03/02/2024, patient is now postoperative day #2, seems to be doing fairly well.POD #2 diagnostic thoracoscopy, open thoracotomy, right middle lobectomy, cryoablation of intercostal nerves VII through III patient is sitting at the bedside chair, does not seem to be in any distress, remains on Zosyn remains on bronchodilators remains on 3 L nasal cannula achieving about 1500 cc on his incentive spirometry he is hemodynamically stable, airleak noted intermittently in both chest tubes continues to have right-sided pneumothorax. Currently however the patient is doing better than expected Seen today on 03/03/2024, patient is now postoperative day #3 patient is sitting at the bedside recliner, does not seem to be in any distress, denies shortness of breath, he does have some pain but seems to be fairly well-controlled at the surgical site/chest wall pain. Patient is receiving Dilaudid IV push his Dilaudid TAKER OFF DRYING KILN pump has been discontinued. My on Zosyn remains on bronchodilators, continues to have air leak in the chest tubes, and continues to have right apical pneumothorax. WBC count is 11 hemoglobin is 8.7 electrolytes are normal renal profile is normal dramatic improvement in his WBC count for the first time is noted, was as high as 20.2 yesterday Patient was seen today on 11/18, basically much better today, feeling better breathing easier he is now postoperative day #4 continues to have pneumothorax on the right side continues to have air leak but clinically the patient is feeling great. Both chest tubes remain in place on the right side. Continues to have air leak. WBC count is 7.1 hemoglobin 8.4 electrolytes are normal renal profile is normal Progress note dated March 05, 2024. 63-year-old male well-known to me. The patient was initially seen for a nodule/mass, in the right upper lobe. The patient had a wedge resection performed by Dr. Winston, and subsequent to that, had a completion right upper lobectomy. After that procedure, the patient had chronic collapse of the right middle lobe, and the patient was readmitted with a diagnosis of chronic collapse, and underwent a right middle lobectomy, by Dr. Winston. He is postoperative day #5. He is currently on room air. No IV fluids. He is feeling well. He is sitting up in a chair, in no distress. He continues to use the incentive spirometer. Current labs are reviewed. White count 4.9, hemoglobin 8.2, hematocrit 26.1, platelet count normal. Sodium 135, potassium 4, chlorides 102, CO2 30 BUN 8, creatinine 0.95. Glucose is 85. Calcium is 7.5. Chest x-ray shows a right apical pneumothorax, and some infiltrate at the right lung base. Objective - Vital Signs Vital signs: Vital Signs Temp 98 F 03/05/24 08:00 Pulse 70 03/05/24 15:48 Resp 18 03/05/24 11:28 BP 116/70 03/05/24 11:28 Pulse Ox 96 03/05/24 11:28 FiO2 Intake & Output 03/04/24 03/05/24 03/05/24 18:59 06:59 18:59 Intake Total 958 480 Output Total 1410 732 840 Balance -468 -570 -360 Weight 100.9 kg Intake: Oral 958 480 Output: Chest Tube Drainage 110 120 15 Chest Tube Right 50 60 10 Posterior Chest right posterior medial 60 60 5 chest tube Urine 1300 450 825 Other: Voiding Method Indwelling Catheter Urinal Urinal # Voids 1 ABP, PAP, CO, CI - Last Documented Arterial Blood Pressure 105/65 - Exam No acute distress, oriented 3. HEENT examination is grossly unremarkable. Mucous membranes are moist. No oral lesions. Neck supple. Full range of motion. No adenopathy thyromegaly or neck vein distention. Cardiovascular examination reveals regular rhythm rate. S1-S2 normal. No S3 or S4. No discernible murmur noted. Lungs reveal bilateral rhonchi. No wheezes or crackles. Breath sounds equal. Abdomen soft bowel sounds are heard. No masses or tenderness. Extremities are intact. No cyanosis or clubbing. Minimal edema. Skin is without rash or lesion. Neurologic examination is brief but nonfocal. - Labs CBC & Chem 7: 03/05/24 06:15 03/05/24 06:15 Labs: Abnormal Lab Results - Last 24 Hours (Table) 03/05/24 03/05/24 Range/Units 06:15 06:15 RBC 2.80 L (4.30-5.90) m/uL Hgb 8.2 L (13.0-17.5) gm/dL Hct 26.1 L (39.0-53.0) % Sodium 135 L (137-145) mmol/L BUN 8 L (9-20) mg/dL Calcium 7.5 L (8.4-10.2) mg/dL Microbiology - Last 24 Hours (Table) 02/19/24 11:51 Legionella Culture - Final Sputum Assessment and Plan Assessment: Postoperative day #5, status post right middle lobectomy, and cryoablation of intercostal nerves. Acute hypoxemic respiratory failure. Previous wedge resection of right upper lobe, followed by a robotically assisted right upper lobectomy. Stage I bronchogenic carcinoma, squamous cell, T1b, N0 M0. Atrial fibrillation with RVR. Persistently collapsed right middle lobe. Chronic and ongoing tobacco dependence of 48 years. History of COPD. History of chronic back pain. Plan: Plan dated March 05, 2024. The patient is seen today in room 357. He sitting in the chair next to the hospital bed. He appears to be relatively comfortable. Labs, x-rays, and medications are reviewed. We will continue to follow the patient, make recommendations along the way. Right sided chest tubes remain in place. The patient initially had a wedge resection of right upper lobe, for an early stage non-small cell lung cancer, and then had a completion right upper lobectomy. Subsequent to that, the patient had a nonexpanding right middle lobe, and despite bronchoscopy, required right middle lobectomy. We will continue to follow make recommendations along the way. Prognosis is guarded. Time with Patient: Less than 30
[2024-03-05] MEDS: ASCORBIC ACID 500 MG TAB PO SCH (16:43)
[2024-03-05] MEDS: FERROUS SULFATE 325 MG TAB PO SCH (16:43)
[2024-03-06 07:37] LABS: HCT 26.5 % (39.0-53.0); HGB 8.4 gm/dL (13.0-17.5); Hypochromasia Moderate; MCH 29.3 pg (25.0-35.0); MCHC 31.8 g/dL (31.0-37.0); MCV 92.3 fL (80.0-100.0); Platelet Count 405 k/uL (150-450); RBC 2.88 m/uL (4.30-5.90); RDW 14.8 % (11.5-15.5); WBC 5.2 k/uL (3.8-10.6)
[2024-03-06 08:06] LABS: African American GFR (CKD) >90 (>60 ml/min/1.73 sqM); Anion Gap 2 mmol/L; Blood Urea Nitrogen 7 mg/dL (9-20); Calcium 7.8 mg/dL (8.4-10.2); Carbon Dioxide 29 mmol/L (22-30); Chloride 102 mmol/L (98-107); Glucose 90 mg/dL (74-99); Non-African American GFR(CKD) 79 (>60 ml/min/1.73 sqM); Potassium 3.9 mmol/L (3.5-5.1); Sodium 133 mmol/L (137-145)
--- NOTE | 2024-03-06 08:08 | P.PN ---
Subjective Progress Note Date: 03/06/24 Principal diagnosis: Recent right upper wedge resection/right upper lobectomy for squamous cell carcinoma, right middle lobe syndrome, pneumonia. Previous medical history of right upper lobe neoplasm with pathology consistent with squamous cell carcinoma status post robotic assisted thoracoscopic wedge resection right upper lobe mass with hilar and mediastinal lymph node dissection and subsequent robotic assisted thoracoscopic completion right upper lobectomy, paroxysmal atrial fibrillation on Eliquis for anticoagulation outpatient, COPD, obesity, previous tobacco dependence with recent cessation, chronic back pain with chronic narcotic dependency, benign prostatic hypertrophy, anxiety and depression POD #6 diagnostic thoracoscopy, open thoracotomy, right middle lobectomy, cryoablation of intercostal nerves VII through III Prolonged airleak, somewhat expected given third right lung surgery The patient was seen and examined this morning sitting up in a recliner on the cardiac stepdown unit in no acute distress eating breakfast. States he get decent sleep last night. The patient continues to complain of pain to his right chest wall, denies shortness of breath. Remains on IV Zosyn for antibiotic coverage per pulmonology, all microbiology finalized negative, remains afebrile. Remains on bronchodilators per pulmonology. Currently on room air with oxygen saturation in the mid 90s, able to achieve 2000 mL on his incentive spirometry. Patient in sinus rhythm on the monitor, hemodynamically stable. Medial and posterior right chest tubes present to waterseal, air leak present in both with coughing. Chest x-ray, labs reviewed. No other new concerns. Objective - Vital Signs Vital signs: Vital Signs Temp 98 F 03/05/24 16:00 Pulse 69 03/06/24 03:42 Resp 18 03/06/24 03:42 BP 117/69 03/06/24 03:42 Pulse Ox 95 03/06/24 03:42 FiO2 Intake & Output 03/05/24 03/06/24 03/06/24 18:59 06:59 18:59 Intake Total 720 240 Output Total 1175 800 Balance -455 -560 Weight 100.6 kg Intake: Oral 720 240 Output: Chest Tube Drainage 75 0 Chest Tube Right 60 0 Posterior Chest right posterior medial 15 0 chest tube Urine 1100 800 Other: Voiding Method Urinal Urinal # Voids 1 # Bowel Movements 1 ABP, PAP, CO, CI - Last Documented Arterial Blood Pressure 105/65 - Exam CONSTITUTIONAL: Appears comfortable, cooperative, no acute distress RESPIRATORY: Lungs sounds diminished bilaterally, right greater than left. Respirations even, nonlabored. Currently on room air with oxygen saturation 95%. Able to achieve 2000 mL on incentive spirometry. Strong cough. CARDIOVASCULAR: S1, S2 present. Regular rate and rhythm, sinus rhythm on telemetry. Palpable peripheral pulses bilaterally. Trace bilateral lower extremity present. No calf pain or tenderness noted. SCDs present. GASTROINTESTINAL: Abdomen soft, nontender, nondistended. Active bowel sounds present 4 quadrants. Tolerating diet. Positive bowel movement 03/06 GENITOURINARY: Continues to void, 1900 mL in the last 24 hours INTEGUMENTARY: Skin is warm and dry with evidence of good perfusion. Thoracic incision well approximated and covered with dry intact dressing. NEUROLOGIC: Cranial nerves II through XII intact MUSKULOSKELETAL: Able to move all extremities, strength equal bilaterally PSYCHIATRIC: Alert and oriented to person place and time, appropriate affect, intact judgment and insight INVASIVE LINES AND TUBES: Right pleural chest tubes present to waterseal, air leaks present in both with coughing. Right medial tube with no drainage overnight, 30 mL in the last 24 hours. Right posterior pleural chest tube with no drainage overnight, 50 mL in the last 24 hours. - Allied health notes Allied health notes reviewed: nursing - Labs CBC & Chem 7: 03/06/24 06:50 03/05/24 06:15 Labs: Abnormal Lab Results - Last 24 Hours (Table) 03/05/24 03/06/24 Range/Units 06:15 06:50 RBC 2.88 L (4.30-5.90) m/uL Hgb 8.4 L (13.0-17.5) gm/dL Hct 26.5 L (39.0-53.0) % Sodium 135 L (137-145) mmol/L BUN 8 L (9-20) mg/dL Calcium 7.5 L (8.4-10.2) mg/dL - Imaging and Cardiology Chest x-ray: image reviewed Assessment and Plan Assessment: Acute hypoxic respiratory failure secondary to acute infection in the right middle lobe Right midlung consolidation, right middle lobe syndrome with secondary pneumonia, status post bronchoscopy performed on 02/11/2024 and 02/22/24, atelectatic narrowed right middle lobe bronchus with evidence of bronchomalacia and anatomic distortion secondary to a previous right upper lobe resection, status post diagnostic thoracoscopy, open thoracotomy, right middle lobectomy, cryoablation of intercostal nerves VII through III Leukocytosis secondary to above Hyponatremia History of squamous cell carcinoma, status post wedge resection followed by completion right upper lobectomy Paroxysmal atrial fibrillation, on Eliquis as an outpatient, discontinued this admission Chronic obstructive pulmonary disease Chronic back pain on chronic narcotics History of tobacco dependence with recent cessation in December 2023 Benign prostatic hypertrophy Obesity Anxiety Depression Plan: Continue chest tubes to waterseal Continue chest physical therapy, every 4 hours, continue to encourage use of flutter valve Antibiotics, bronchodilators, per pulmonology Continue Mucinex Encourage use of incentive spirometry 10 times every hour while awake Continue to monitor daily chest x-rays Pain control per current medication regimen Continue lopressor with hold parameters Increase activity, ambulate as tolerated. Encourage patient to ambulate out into the hallway now that his chest tubes are on waterseal Continue knee-high MICHAEL hose during the day GI/DVT prophylaxis Medical management other comorbidities per primary care service More recommendations to follow based on patient's clinical course
[2024-03-06] MEDS: POTASSIUM CHLORIDE ER 20 MEQ TAB.ER PO STA (09:19)
--- NOTE | 2024-03-06 12:21 | P.PN ---
Subjective Progress Note Date: 03/06/24 Principal diagnosis: Lung cancer. This is a very pleasant 63-year-old male patient with a known history of chronic and ongoing tobacco dependence of 48 years, chronic obstructive pulmonary disease, chronic back pain, atrial fibrillation. He also has a history of a solitary right upper lobe pulmonary nodule that was positive for squamous cell carcinoma based on a previous wedge resection in December 2023. He was brought back into the hospital for a robotically assisted right upper lobe lobectomy on February 09, 2024. During that hospitalization he was found to have a right middle lobe collapse and had undergone bronchoscopy with BAL. No endobronchial lesions or mucous was identified. He was discharged home on February 13, 2024. He was seen in the emergency department on February 17, 2024 for increasing shortness of breath cough and congestion. He was given azithromycin and discharged to home. He returned to the emergency room again the following day February 18, 2024 with similar symptoms that seem to be worsening. He had a hard time sleeping and was having right sided chest pain. Increased mucus. Chest x-ray shows similar findings of a large predominant right perihilar opacity. Stable small right apical hydropneumothorax. Small increasing right pleural effusion. White count 16.6. Hemoglobin 10.7. Platelets 552. Sodium 127. Potassium 5.1. Bicarb 24. BUN 20. Creatinine 0.98. Glucose 104. Viral screen negative. He is seen today in consultation on the regular medical floor. He is currently sitting up in bed. Awake and alert in no acute distress. He is quite weak. He is maintaining O2 saturations in the low 90s on room air. 02/20/2024, the patient is being seen for a follow-up. Patient is post right upper lobectomy for non-small cell lung cancer. 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 The patient has a persistent atelectasis/pneumonia of the right middle lobe. Currently, the patient is hospitalized for worsening shortness of breath. Procalcitonin level is 0.47. Electrolytes are all within normal range with a BUN of 15 and a creatinine of 0.9. The white cell count is at 15.4 with a hemoglobin of 10.4 and a platelet count of 406. The right upper lobe resection was done on 02/10/2024 and it is consistent with benign lung without any residual malignancy. The lymph nodes are also negative for malignancy. The patient is currently on IV Rocephin. The patient is also on Symbicort as maintenance 2 puffs twice a day and IV fluids with normal saline at rate of 75 cc an hour. He is receiving nebulized albuterol 4 times a day. He is oxygen requirements are at 6 L with a pulse ox of 99% On 02/21/2024, the patient is being seen for a follow-up. The patient is on 5 L of oxygen by nasal cannula and the patient is pulse oxing 91%. Continues to have a congested cough. The blood culture was negative. The sputum sample was negative. The patient's white cell count is at 14 with a hemoglobin 9.9 and a platelet count of 658. BUN is 15 with a creatinine of 0.8 and sodium levels at 134. Remains on Ventolin nebulized treatments, Symbicort maintenance and IV Rocephin. The plan is to repeat the patient's bronchoscopy in a.m. and to reevaluate the right middle lobe bronchus. The chest x-ray from today is essentially unchanged. There is a masslike opacity in the right hilum which is probably an atelectatic right middle lobe. On 02/22/2024, patient is being seen for a follow-up. Earlier this morning, the patient was having significant respiratory distress and cough and congestion. He has required higher oxygen flow at 5 L/min nasal cannula with a pulse ox of 95%. Based on that, a CAT scan of the chest was completed this morning without contrast and the CAT scan showed right upper lobectomy, a cavity was seen in the right suprahilar area with a atelectatic right middle lobe consistent with right middle lobe syndrome, /consolidation/groundglass changes and the patient also had some groundglass opacities in the left upper lobe. Airspace disease also seen in the right with an air-fluid level within the cavity. Small right-sided pleural effusion was noted based on those findings, a bronchoscopy was performed today and as expected, the patient had significant narrowing of the right middle lobe bronchus. There was evidence of bronchomalacia. I was able to pass the bronchoscope to the right middle lobe bronchus and visualize the right middle lobe and right lower lobe. Therapeutic airway suctioning was done. 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 Based on those findings, the patient was started on IV Zosyn and antibiotic modification was done. He seems to be much more comfortable post bronchoscopy. He has been placed on anticoagulation regarding paroxysmal atrial fibrillation. His current rhythm has remained sinus and the patient will be taken off the anticoagulation. The sodium levels at 133, BUN 13 with a creatinine 0.8. The white cell count from yesterday was at 14.4 with a hemoglobin 9.9. The procalcitonin level is at 0.47. On 02/23/2024, the patient is being seen for a follow-up. The patient is post bronchoscopy was done yesterday and please refer to the documented report. Repeat chest x-ray was also done today and the patient's findings are essentially stable. There is a right suprahilar opacity which remains essentially unchanged and area of atelectatic/infected right middle lobe. Meanwhile, the patient remains on IV Zosyn. The white cell count is down to 11.7. Hemoglobin is stable at 9.0 and the patient was taken off the anticoagulation. Electrolytes are stable. BUN is 12 with a creatinine of 0.8. Awaiting the results of the bronchial lavage. Oxygenation is also stable and the patient remains on 5 L of oxygen by nasal cannula with a pulse ox of 98%. He is sitting up to bedside chair. He is awake and alert. Denies having any pain. He does report some ongoing shortness of breath and a congested cough. He gets short of breath with activity. He is afebrile for now. On today's evaluation of 02/24/2024, the patient is feeling better. His oxygenation is improved and the patient is currently down to 3 L of oxygen nasal cannula with pulse ox of 94%. A follow-up chest x-ray from today shows essentially normal interval change and there is volume loss and right midlung atelectasis/consolidation in addition to a right apical pneumothorax. There is ongoing diffuse groundglass pulmonary filtrates and small right-sided pleural effusion. Bronchoscopy and bronchial lavage was done. Cultures are still pending for now. There is polymicrobial on the Gram stain including few gram- positive cocci and rare gram-negative bacilli. The patient remains on IV Zosyn. The patient remains on Symbicort and DuoNeb the regiment [id number]. The patient is on Symbicort. No issues with pain. Cough and congestion has subsided. Cardiac rhythm is a sinus. The white cell count is 11 with a hemoglobin of 9 and a platelet count of 640. Electrolytes are all within normal limits. BUN is 12 with a creatinine 0.8. On 02/25/2024, the patient is feeling better. Less short of breath. Less bronchospastic and wheezy. He has been weaned down to 2 L of oxygen by nasal cannula. Bronchoscopy endobronchial lavage is not yielded any microbial growth. The patient has responded nicely to IV Zosyn. DuoNeb nebulized treatments [id number]. Cough and congestion has subsided significantly. Repeat chest x-ray was done today and essentially there is no significant interval change. Small right-sided pleural effusion is seen. On today's evaluation of 02/26/2024, the patient is feeling better. Cough and congestion has subsided significantly. Cultures from the bronchioloalveolar lavage has been negative. The patient remains on IV Zosyn. He is currently on oxygen at 2 L/min nasal cannula. He remains on bronchodilators and steroids. Labs show a white cell count of 7.7 with a hemoglobin 9 and a platelet count of 710. Electrolytes are all within normal limits. Troponins are negative. The patient is seen today February 27, 2024 in follow-up on the regular medical floor. He is currently sitting up in a chair at the bedside. Awake and alert in no acute distress. He is maintaining O2 saturations in the 90s on 2 L/min per nasal cannula. He is afebrile. Hemodynamically stable. Chest x-ray continues to show ongoing masslike right perihilar opacity measuring up to 3.7 cm. Redemonstrated air-fluid level within the inferior aspect of the opacity. This is mostly the right middle lobe volume loss. Sputum and blood cultures revealed no growth. Bronchial wash cultures revealed no growth. White count 12.6. Hemoglobin 9.1. Platelets 696. Sodium 137. Potassium 4.5. Bicarb 27. BUN 10. Creatinine 0.8. Glucose 166. He remains on DuoNeb inhalations, Symbicort, Solu-Medrol. Antibiotics in the form of Zosyn. Heparin for DVT pr ophylaxis. The patient is seen today February 28, 2024 in follow-up on the regular medical floor. He is currently awake and alert in no acute distress. Sitting up in a chair at the bedside. Maintaining good O2 saturations in the 90s on 2 L/min per nasal cannula. He has been afebrile. Hemodynamically stable. Bronchial wash cultures from 02/22/2024 revealed no growth. Blood cultures revealed no growth. Sputum culture revealed no growth. He remains on DuoNeb inhalations, Symbicort, Mucinex. Antibiotics in the form of Zosyn. Patient was seen today on 03/20, patient is doing well, relatively asymptomatic, scheduled for right middle lobectomy sometime later today. In the meantime the patient is doing well, no cough no wheezing no shortness of breath, remains on Zosyn. Remains on bronchodilators. WBC count today is 11.7 hemoglobin 10.2 electrolytes are normal renal profile is normal Seen today on 03/01/2024, patient is doing well, underwent diagnostic thoracoscopy open thoracotomy right middle lobectomy cryoablation of intercostal nerves VII through III patient is now in the ICU, sitting at the bedside chair, does not seem to be in any distress, on 3 L nasal cannula achieving 1250 cc on his incentive spirometry. Patient is hemodynamically stable, not on any pressors not requiring any inotropes. Medial and posterior right-sided chest tubes noted patient continues to have right apical pneumothorax and has continuous air leak noted.WBC count is 17.2 hemoglobin is 9.5 electrolytes are normal renal profile is normal Patient was seen today on 03/02/2024, patient is now postoperative day #2, seems to be doing fairly well.POD #2 diagnostic thoracoscopy, open thoracotomy, right middle lobectomy, cryoablation of intercostal nerves VII through III patient is sitting at the bedside chair, does not seem to be in any distress, remains on Zosyn remains on bronchodilators remains on 3 L nasal cannula achieving about 1500 cc on his incentive spirometry he is hemodynamically stable, airleak noted intermittently in both chest tubes continues to have right-sided pneumothorax. Currently however the patient is doing better than expected Seen today on 03/03/2024, patient is now postoperative day #3 patient is sitting at the bedside recliner, does not seem to be in any distress, denies shortness of breath, he does have some pain but seems to be fairly well-controlled at the surgical site/chest wall pain. Patient is receiving Dilaudid IV push his Dilaudid [employer] pump has been discontinued. My on Zosyn remains on bronchodilators, continues to have air leak in the chest tubes, and continues to have right apical pneumothorax. WBC count is 11 hemoglobin is 8.7 electrolytes are normal renal profile is normal dramatic improvement in his WBC count for the first time is noted, was as high as 20.2 yesterday Patient was seen today on 11/18, basically much better today, feeling better breathing easier he is now postoperative day #4 continues to have pneumothorax on the right side continues to have air leak but clinically the patient is feeling great. Both chest tubes remain in place on the right side. Continues to have air leak. WBC count is 7.1 hemoglobin 8.4 electrolytes are normal renal profile is normal Progress note dated March 05, 2024. 63-year-old male well-known to me. The patient was initially seen for a nodule/mass, in the right upper lobe. The patient had a wedge resection performed by Dr. Winston, and subsequent to that, had a completion right upper lobectomy. After that procedure, the patient had chronic collapse of the right middle lobe, and the patient was readmitted with a diagnosis of chronic collapse, and underwent a right middle lobectomy, by Dr. Winston. He is postoperative day #5. He is currently on room air. No IV fluids. He is feeling well. He is sitting up in a chair, in no distress. He continues to use the incentive spirometer. Current labs are reviewed. White count 4.9, hemoglobin 8.2, hematocrit 26.1, platelet count normal. Sodium 135, potassium 4, chlorides 102, CO2 30 BUN 8, creatinine 0.95. Glucose is 85. Calcium is 7.5. Chest x-ray shows a right apical pneumothorax, and some infiltrate at the right lung base. Progress note dated March 06, 2024. 63-year-old male well-known to me. The patient is status post right middle lobectomy. He initially had a wedge resection of the right upper lobe lesion, which turned out to be non-small cell lung cancer. The patient then had a robotically assisted completion right upper lobectomy. After that procedure, the patient had collapse of the right middle lobe, which would not reexpand. Hence, the most recent surgery. He is sitting in the chair, next to the hospital bed. He is in no distress. He is on room air. He is getting saline at 10 cc an hour. 2 chest tubes remain on the right side. Patient does have a leak. White count 5.2, hemoglobin 8.4, hematocrit 26.5, platelet count 405,000. Sodium 133, potassium 3.9, chlorides 102, CO2 29, BUN 7, and creatinine 1.01. Calcium 7.8. Chest x-ray shows a right upper lobe pneumothorax. Objective - Vital Signs Vital signs: Vital Signs Temp 97.9 F 03/06/24 08:00 Pulse 72 03/06/24 12:12 Resp 18 03/06/24 11:40 BP 110/66 03/06/24 11:40 Pulse Ox 95 03/06/24 11:40 FiO2 Intake & Output 03/05/24 03/06/24 03/06/24 18:59 06:59 18:59 Intake Total 720 240 780 Output Total 1175 800 610 Balance -455 -560 170 Weight 100.6 kg Intake: Oral 720 240 780 Output: Chest Tube Drainage 75 0 10 Chest Tube Right 60 0 0 Posterior Chest right posterior medial 15 0 10 chest tube Urine 1100 800 600 Other: Voiding Method Urinal Urinal Urinal # Voids 1 1 # Bowel Movements 1 1 ABP, PAP, CO, CI - Last Documented Arterial Blood Pressure 105/65 - Exam No acute distress, oriented 3. HEENT examination is grossly unremarkable. Mucous membranes are moist. No oral lesions. Neck supple. Full range of motion. No adenopathy thyromegaly or neck vein distention. Cardiovascular examination reveals regular rhythm rate. S1-S2 normal. No S3 or S4. No discernible murmur noted. Lungs reveal bilateral rhonchi. No wheezes or crackles. Breath sounds equal. Abdomen soft bowel sounds are heard. No masses or tenderness. Extremities are intact. No cyanosis or clubbing. Minimal edema. Skin is without rash or lesion. Neurologic examination is brief but nonfocal. - Labs CBC & Chem 7: 03/06/24 06:50 03/06/24 06:50 Labs: Abnormal Lab Results - Last 24 Hours (Table) 03/06/24 03/06/24 Range/Units 06:50 06:50 RBC 2.88 L (4.30-5.90) m/uL Hgb 8.4 L (13.0-17.5) gm/dL Hct 26.5 L (39.0-53.0) % Sodium 133 L (137-145) mmol/L BUN 7 L (9-20) mg/dL Calcium 7.8 L (8.4-10.2) mg/dL Assessment and Plan Assessment: Postoperative day #6, status post right middle lobectomy, and cryoablation of intercostal nerves. Acute hypoxemic respiratory failure. Previous wedge resection of right upper lobe, followed by a robotically assisted right upper lobectomy. Stage I bronchogenic carcinoma, squamous cell, T1b, N0 M0. Atrial fibrillation with RVR. Persistently collapsed right middle lobe. Chronic and ongoing tobacco dependence of 48 years. History of COPD. History of chronic back pain. Plan: Plan dated March 05, 2024. The patient is seen today in room 357. He sitting in the chair next to the hospital bed. He appears to be relatively comfortable. Labs, x-rays, and medications are reviewed. We will continue to follow the patient, make recommendations along the way. Right sided chest tubes remain in place. The patient initially had a wedge resection of right upper lobe, for an early stage non-small cell lung cancer, and then had a completion right upper lobectomy. Subsequent to that, the patient had a nonexpanding right middle lobe, and despite bronchoscopy, required right middle lobectomy. We will continue to follow make recommendations along the way. Prognosis is guarded. Plan dated March 06, 2024. The patient is doing relatively well. He has been very patient. The patient is currently on room air. He is getting saline at 10 cc an hour. 2 right-sided c hest tubes remain. Chest x-ray shows a right sided pneumothorax. It is apically situated. The patient does have a leak. Labs, x-rays, and all medications are reviewed. We will continue to follow patient, make recommendations. We recommend deep breathing, coughing, clearing of secretions, and use of the incentive spirometer. Time with Patient: Less than 30
--- NOTE | 2024-03-06 14:26 | P.PN ---
Subjective Progress Note Date: 03/06/24 H&P Date: 02/19/24 Chief Complaint: Cough, diaphoresis, shortness of breath Brian is a 63-year-old white male with known squamous cell carcinoma. He had underwent a mediastinal lymph node dissection and wedge resection of the lung on December 27, 2023. He returned back and February 08 for a right upper lobe lobectomy. While here he had collapse of the right middle lung and underwent a bronchoscopy and bronc and BAL. He developed a complication of paroxysmal atrial fibrillation during his stay. He did improve and was sent home in stable condition. He returned emergency room on 1121 with shortness of breath and cough was sent home. He returned again on 02/18/2024 with worsening symptoms. Found to have a leukocytosis coughing and not feeling well. Also complaining of left-sided chest pain and right-sided chest pain at his surgical site. This morning he isb in sinus rhythm per telemetry heart rates controlled in the 80s O2 saturation 93% on room air. Laboratory studies now show a leukocytosis 16 6 hemoglobin 10.7 and a left shift with the neutrophils at 14,600. Blood chemistries do show a hyponatremia with a sodium 127 chloride 95, calcium is 7.9. Total protein is 6.2 with a albumin of 3.2. 02/20/2024: Brian was reevaluated for his right middle lobe pneumonia. Vital signs show he is afebrile heart rate and respiratory rate blood pressure control. He is on 6 L of O2 via nasal cannula. WBC count is improved now 15.4, hemoglobin 10.4 neutrophils are 14.23, chemistries show sodium 133. Sputum and blood cultures pending. 02/21/2024: Parents feeling slightly better today. He is being treated for his right middle lobe pneumonia. His regular lobe and collapsed after his right upper lobe surgical assisted lobectomy. He remains on ceftriaxone and azithromycin for antibiotics apixaban for anticoagulation acetylcysteine and guaifenesin for mucus production. He is on Symbicort and Atrovent for inhalation therapy at this time. 02/22/2024: Patient could not be seen today as he was down for his bronchoscopy. Labs and chart are reviewed today. Patient remains on Zosyn. He has Eliquis for anticoagulation. He has DuoNeb updrafts or shortness of breath is on Mucomyst and Symbicort. 02/23/2024 patient awake alert oriented 3 complains of chest pain dyspnea 02/24/2024 patient awake alert oriented 3 complains of chest pain dyspnea, status post lung resection 02/25/2024 Patient awake alert oriented 3 vital signs are stable patient is afebrile, patient has been complaining of intermittent chest discomfort, EKG no acute changes' 02/26/2024 Patient awake alert oriented 3 vital signs are stable patient is currently afebrile, no new chest pain today 02/27/24 continues on Zosyn, nebulized bronchodilators, afebrile, WBC 12.66. , Bronch ,sputum and blood cultures reporting negative.ambulated in the hallway earlier this morning, tolerated exertion well. Currently sitting up in chair, maintaining O2 sats in the mid 90s on 2 L nasal cannula. Chest x-ray reporting ongoing masslike right perihilar opacity measuring up to 3.7 cm. Redemonstrated air-fluid level within the inferior aspect of the opacity. Interstitial density in the left lung shows some improvement. Reports chest pain with coughing , receiving Hooper scheduled and Dilaudid prn.CTS consulted, recommendations pending. Hemoglobin 9.1, platelets 696 .renal function stable. 02/28/2024 evaluated by CTS and patient is scheduled for right mid lobe lobectomy tomorrow. Complains of left upper molar caries with fracture, Peridex mouthwash ordered. Afebrile, maintained on Zosyn, nebulized bronchodilators, Symbicort and Mucinex. O2 sats in the 90s on 2 L nasal cannula. 02/29/2024 NPO, sitting up in chair, right middle lobe lobectomy scheduled for early this afternoon. Denies chest pain, palpitations or shortness of breath. Maintaining O2 sats in the mid to high 90s on 2 L nasal cannula. continues on Zosyn, afebrile, WBC 11.7, hemoglobin 10.2, renal function and electrolytes within normal limits. 03/01/2024 status post diagnostic thoracic appendectomy, open thoracotomy, right middle lobe lobectomy, cryoablation of intercostal nerves VII through III, postop day #1. Significant pain throughout the night, Hooper was added to pain med regime in addition to Dilaudid CHARACTER IMPERSONATOR with better control currently. Microbiology negative, continues on Zosyn, afebrile, WBC decreased to 17.2. Hemoglobin 9.5, platelets 473, sodium 131, renal function stable, blood sugars controlled, calcium 7.4. Blood pressure soft, mean arterial pressures in the 70s, beta-daniele held. Chest x-ray reporting decreasing size of right apical pneumothorax currently 4.6 cm versus 5.8 cm previously, [address] Similar postsurgical change right hilum with corresponding volume loss right hemothorax following lobectomy. Ongoing diffuse interstitial opacities, possible interstitial pulmonary edema. Maintaining O2 sats in the 90s on 3 L nasal cannula. Denies shortness of breath. 03/02/2024 transferred out of ICU to stepdown unit yesterday. Denies shortness of breath. Maintaining O2 sats in the 90s on 3 L nasal cannula. Continues on Zosyn. Afebrile, labs pending. telemetry sinus rhythm. Reporting right chest wall pain; currently on Dilaudid CHARACTER IMPERSONATOR as well as Hooper's as per cardiothoracic surgery. Denies lightheadedness dizziness or focal deficits. 03/05/2024 sitting up in chair,complains of right chest wall pain. Chest tubes to water suction, chest x-ray pending. telemetry sinus rhythm. Denies shortness of breath, maintaining O2 sats in the mid to high 90s on room air. Continues on Zosyn, afebrile, normal WBC. 03/06/2024 continues with 2 right sided chest tubes to waterseal, positive leak, complains of right chest wall pain. Chest x-ray pending. Denies shortness of breath, maintaining O2 sats in the mid 90s on room air .hemoglobin 8.4, platelets 405. afebrile, normal WBC. maintained on Zosyn, nebulized b ronchodilators. Hemoglobin 8.4, platelets 405. Renal function stable. Reports significant improvement on lactobacillus with his canker sores and is able to eat easier. Objective - Vital Signs Vital signs: Vital Signs Temp 97.9 F 03/06/24 08:00 Pulse 72 03/06/24 09:18 Resp 20 03/06/24 08:00 BP 126/70 03/06/24 08:00 Pulse Ox 96 03/06/24 08:00 FiO2 Intake & Output 12/12/1903/06/24 03/06/24 18:59 06:59 18:59 Intake Total 720 240 240 Output Total 1175 800 235 Balance -455 -560 5 Weight 100.6 kg Intake: Oral 720 240 240 Output: Chest Tube Drainage 75 0 10 Chest Tube Right 60 0 0 Posterior Chest right posterior medial 15 0 10 chest tube Urine 1100 800 225 Other: Voiding Method Urinal Urinal Urinal # Voids 1 1 # Bowel Movements 1 1 ABP, PAP, CO, CI - Last Documented Arterial Blood Pressure 105/65 - Exam General: Alert and oriented x 3, sitting up in chair,no acute distress.] HEENT: [Normocephalic, PERRL. EOMI. conjunctiva normal.MMM. Neck: Supple, no JVD Cardiac: [Heart regular in rate and rhythm. No S3. No S4. No clicks, rubs. No murmur.] Lungs: Unlabored, equal air entry, right sided expiratory wheeze. Right medial and right posterior chest tubes to waterseal. Abdomen: Soft, nontender, nondistended, no organomegaly.+BS Extremes: No edema, no cyanosis no claudication normal pulses, wearing teds.] Skin: [Warm and dry, no rash noted.] Neurologic: CN II - XII grossly intact.] - Labs CBC & Chem 7: 03/06/24 06:50 03/06/24 06:50 Labs: Abnormal Lab Results - Last 24 Hours (Table) 03/06/24 03/06/24 Range/Units 06:50 06:50 RBC 2.88 L (4.30-5.90) m/uL Hgb 8.4 L (13.0-17.5) gm/dL Hct 26.5 L (39.0-53.0) % Sodium 133 L (137-145) mmol/L BUN 7 L (9-20) mg/dL Calcium 7.8 L (8.4-10.2) mg/dL Assessment and Plan Assessment: Acute hypoxic respiratory failure, positive groundglass changes bilaterally, chest x-ray reporting ongoing masslike right perihilar opacity measuring up to 3.7 cm. Redemonstrated air-fluid level within the inferior aspect of the opacity. Interstitial density in the left lung shows some improvement. status post diagnostic thoracic appendectomy, open thoracotomy, right middle lobe lobectomy, cryoablation of intercostal nerves VII through III, 02/29/2024. Recent lobectomy of right upper lung secondary to Squamous cell lung CA, discharged 02/12 Leukocytosis, resolved Right middle lobe atelectasis status post bronchoscopy 02/11/2024. Bronchial lavage cultures reporting negative. 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 Chest x-ray pending. chest tubes' management as per CTS. increase ambulation as tolerated .maintain aggressive pulmonary toileting with CPT, flutter valve nebulized bronchodilators, Symbicort, Zosyn. Pain management. The impression and plan of care has been dictated as directed. : I performed a history and examination of this patient, discussed the same with the dictator. I agree with the dictator's note ,documented as a scribe. Any additional findings or plans will be noted.
--- NOTE | 2024-03-06 16:28 | XR ---
EXAMINATION TYPE: XR chest 1V portable DATE OF EXAM: 03/06/2024 7:04 AM COMPARISON: None. CLINICAL INDICATION: Male, 63 years old with history of Post right upper and middle lobectomy, TECHNIQUE: XR chest 1V portable view(s) obtained. FINDINGS: The heart size is normal. The pulmonary vasculature is normal. Been a prior lobectomy with residual right apical pneumothorax. 2 right-sided chest tubes remain pres ent. There may be slight diminished size of the pneumothorax. Right hilar increased density is prese nt, unchanged. IMPRESSION: 1. Stable appearance from prior exam. Two right-sided chest tubes and a right apical pneumothorax rem aining present. [facility], , 03/06/2024 4:26 PM
--- NOTE | 2024-03-07 07:44 | P.PN ---
Subjective Progress Note Date: 03/07/24 Principal diagnosis: Recent right upper wedge resection/right upper lobectomy for squamous cell carcinoma, right middle lobe syndrome, pneumonia. Previous medical history of right upper lobe neoplasm with pathology consistent with squamous cell carcinoma status post robotic assisted thoracoscopic wedge resection right upper lobe mass with hilar and mediastinal lymph node dissection and subsequent robotic assisted thoracoscopic completion right upper lobectomy, paroxysmal atrial fibrillation on Eliquis for anticoagulation outpatient, COPD, obesity, previous tobacco dependence with recent cessation, chronic back pain with chronic narcotic dependency, benign prostatic hypertrophy, anxiety and depression POD #7 diagnostic thoracoscopy, open thoracotomy, right middle lobectomy, cryoablation of intercostal nerves VII through III Prolonged airleak, somewhat expected given third right lung surgery The patient was seen and examined this morning sitting up in a recliner on the cardiac stepdown unit in no acute distress eating breakfast. States he had some sleep last night. The patient continues to complain of active postsurgical pain to his right chest wall although states it is better controlled, denies shortness of breath. Remains on IV Zosyn for antibiotic coverage per pulmonology. Remains on bronchodilators per pulmonology. Currently on room air with oxygen saturation in the high 90s, able to achieve 2250 mL on his incentive spirometry. Patient in sinus rhythm on the monitor, hemodynamically stable. Medial and posterior right chest tubes present to waterseal, air leak present in both with forceful coughing. Chest x-ray reviewed. No other new concerns. Objective - Vital Signs Vital signs: Vital Signs Temp 99.1 F 03/07/24 04:00 Pulse 102 H 03/07/24 04:00 Resp 18 03/07/24 04:00 BP 125/70 03/07/24 04:00 Pulse Ox 97 03/07/24 04:00 FiO2 Intake & Output 03/06/24 03/07/24 03/07/24 18:59 06:59 18:59 Intake Total 1370 120 Output Total 2034 2499 Balance -665 -2380 Weight 100.4 kg Intake: Oral 1370 120 Output: Chest Tube Drainage 10 0 Chest Tube Right 0 0 Posterior Chest right posterior medial 10 0 chest tube Urine 2024 2499 Other: Voiding Method Urinal Urinal # Voids 1 # Bowel Movements 1 ABP, PAP, CO, CI - Last Documented Arterial Blood Pressure 105/65 - Exam CONSTITUTIONAL: Appears comfortable, cooperative, no acute distress RESPIRATORY: Lungs sounds diminished bilaterally. Respirations even, nonlabored. Currently on room air with oxygen saturation 97%. Able to achieve 2250 mL on incentive spirometry. Strong cough. CARDIOVASCULAR: S1, S2 present. Regular rate and rhythm, sinus rhythm on telemetry. Palpable peripheral pulses bilaterally. No edema present. No calf pain or tenderness noted. SCDs present. GASTROINTESTINAL: Abdomen soft, nontender, nondistended. Active bowel sounds present 4 quadrants. Tolerating diet. Positive bowel movement 03/06 GENITOURINARY: Continues to void, 4525 mL in the last 24 hours INTEGUMENTARY: Skin is warm and dry with evidence of good perfusion. Thoracic incision well approximated and covered with dry intact dressing. NEUROLOGIC: Cranial nerves II through XII intact MUSKULOSKELETAL: Able to move all extremities, strength equal bilaterally PSYCHIATRIC: Alert and oriented to person place and time, appropriate affect, intact judgment and insight INVASIVE LINES AND TUBES: Right pleural chest tubes present to waterseal, air leaks present in both with coughing. Right medial tube with no drainage overnight, 50 mL in the last 24 hours. Right posterior pleural chest tube with no drainage overnight, 50 mL in the last 24 hours. - Allied health notes Allied health notes reviewed: nursing - Labs CBC & Chem 7: 03/06/24 06:50 03/06/24 06:50 Labs: Abnormal Lab Results - Last 24 Hours (Table) 03/06/24 03/06/24 Range/Units 06:50 06:50 RBC 2.88 L (4.30-5.90) m/uL Hgb 8.4 L (13.0-17.5) gm/dL Hct 26.5 L (39.0-53.0) % Sodium 133 L (137-145) mmol/L BUN 7 L (9-20) mg/dL Calcium 7.8 L (8.4-10.2) mg/dL - Imaging and Cardiology Chest x-ray: image reviewed Assessment and Plan Assessment: Acute hypoxic respiratory failure secondary to acute infection in the right middle lobe Right midlung consolidation, right middle lobe syndrome with secondary pneumonia, status post bronchoscopy performed on 02/11/2024 and 02/22/24, atelectatic narrowed right middle lobe bronchus with evidence of bronchomalacia and anatomic distortion secondary to a previous right upper lobe resection, status post diagnostic thoracoscopy, open thoracotomy, right middle lobectomy, cryoablation of intercostal nerves VII through III Leukocytosis secondary to above Hyponatremia History of squamous cell carcinoma, status post wedge resection followed by completion right upper lobectomy Paroxysmal atrial fibrillation, on Eliquis as an outpatient, discontinued this admission Chronic obstructive pulmonary disease Chronic back pain on chronic narcotics History of tobacco dependence with recent cessation in December 2023 Benign prostatic hypertrophy Obesity Anxiety Depression Plan: Will remove anterior chest tube, continue posterior chest tube to waterseal Continue chest physical therapy, every 4 hours, continue to encourage use of flutter valve Antibiotics, bronchodilators, per pulmonology Continue Mucinex Encourage use of incentive spirometry 10 times every hour while awake Continue to monitor daily chest x-rays Pain control per current medication regimen Continue lopressor with hold parameters Increase activity, ambulate as tolerated. Encourage patient to ambulate out into the hallway now that his chest tubes are on waterseal Continue knee-high MICHAEL hose during the day GI/DVT prophylaxis Medical management other comorbidities per primary care service More recommendations to follow based on patient's clinical course
--- NOTE | 2024-03-07 12:45 | XR ---
EXAMINATION TYPE: XR chest 1V portable DATE OF EXAM: 03/07/2024 11:41 AM COMPARISON: None. CLINICAL INDICATION: Male, 63 years old with history of CP following Chest tube pull, TECHNIQUE: XR chest 1V portable view(s) obtained. FINDINGS: The heart size is normal. The pulmonary vasculature is normal. Right apical pneumothorax remains stable. One of the right-sided chest tube since been removed. The s econd towards the apex remains present. Some right suprahilar increased density is present, present p reviously IMPRESSION: 1. Stable appearance AP chest post first right chest tube. [facility], , 03/07/2024 12:43 PM
--- NOTE | 2024-03-07 14:33 | P.PN ---
Subjective Progress Note Date: 03/07/24 H&P Date: 02/19/24 Chief Complaint: Cough, diaphoresis, shortness of breath Brian is a 63-year-old white male with known squamous cell carcinoma. He had underwent a mediastinal lymph node dissection and wedge resection of the lung on December 27, 2023. He returned back and February 08 for a right upper lobe lobectomy. While here he had collapse of the right middle lung and underwent a bronchoscopy and bronc and BAL. He developed a complication of paroxysmal atrial fibrillation during his stay. He did improve and was sent home in stable condition. He returned emergency room on 1121 with shortness of breath and cough was sent home. He returned again on 02/18/2024 with worsening symptoms. Found to have a leukocytosis coughing and not feeling well. Also complaining of left-sided chest pain and right-sided chest pain at his surgical site. This morning he isb in sinus rhythm per telemetry heart rates controlled in the 80s O2 saturation 93% on room air. Laboratory studies now show a leukocytosis 16 6 hemoglobin 10.7 and a left shift with the neutrophils at 14,600. Blood chemistries do show a hyponatremia with a sodium 127 chloride 95, calcium is 7.9. Total protein is 6.2 with a albumin of 3.2. 02/20/2024: Brian was reevaluated for his right middle lobe pneumonia. Vital signs show he is afebrile heart rate and respiratory rate blood pressure control. He is on 6 L of O2 via nasal cannula. WBC count is improved now 15.4, hemoglobin 10.4 neutrophils are 14.23, chemistries show sodium 133. Sputum and blood cultures pending. 02/21/2024: Parents feeling slightly better today. He is being treated for his right middle lobe pneumonia. His regular lobe and collapsed after his right upper lobe surgical assisted lobectomy. He remains on ceftriaxone and azithromycin for antibiotics apixaban for anticoagulation acetylcysteine and guaifenesin for mucus production. He is on Symbicort and Atrovent for inhalation therapy at this time. 02/22/2024: Patient could not be seen today as he was down for his bronchoscopy. Labs and chart are reviewed today. Patient remains on Zosyn. He has Eliquis for anticoagulation. He has DuoNeb updrafts or shortness of breath is on Mucomyst and Symbicort. 02/23/2024 patient awake alert oriented 3 complains of chest pain dyspnea 02/24/2024 patient awake alert oriented 3 complains of chest pain dyspnea, status post lung resection 02/25/2024 Patient awake alert oriented 3 vital signs are stable patient is afebrile, patient has been complaining of intermittent chest discomfort, EKG no acute changes' 02/26/2024 Patient awake alert oriented 3 vital signs are stable patient is currently afebrile, no new chest pain today 02/27/24 continues on Zosyn, nebulized bronchodilators, afebrile, WBC 12.66. , Bronch ,sputum and blood cultures reporting negative.ambulated in the hallway earlier this morning, tolerated exertion well. Currently sitting up in chair, maintaining O2 sats in the mid 90s on 2 L nasal cannula. Chest x-ray reporting ongoing masslike right perihilar opacity measuring up to 3.7 cm. Redemonstrated air-fluid level within the inferior aspect of the opacity. Interstitial density in the left lung shows some improvement. Reports chest pain with coughing , receiving [place] scheduled and Dilaudid prn.CTS consulted, recommendations pending. Hemoglobin 9.1, platelets 696 .renal function stable. 02/28/2024 evaluated by CTS and patient is scheduled for right mid lobe lobectomy tomorrow. Complains of left upper molar caries with fracture, Peridex mouthwash ordered. Afebrile, maintained on Zosyn, nebulized bronchodilators, Symbicort and Mucinex. O2 sats in the 90s on 2 L nasal cannula. 02/29/2024 NPO, sitting up in chair, right middle lobe lobectomy scheduled for early this afternoon. Denies chest pain, palpitations or shortness of breath. Maintaining O2 sats in the mid to high 90s on 2 L nasal cannula. continues on Zosyn, afebrile, WBC 11.7, hemoglobin 10.2, renal function and electrolytes within normal limits. 03/01/2024 status post diagnostic thoracic appendectomy, open thoracotomy, right middle lobe lobectomy, cryoablation of intercostal nerves VII through III, postop day #1. Significant pain throughout the night, [place]mouth was added to pain med regime in addition to Dilaudid [employer] with better control currently. Microbiology negative, continues on Zosyn, afebrile, WBC decreased to 17.2. Hemoglobin 9.5, platelets 473, sodium 131, renal function stable, blood sugars controlled, calcium 7.4. Blood pressure soft, mean arterial pressures in the 70s, beta-daniele held. Chest x-ray reporting decreasing size of right apical pneumothorax currently 4.6 cm versus 5.8 cm previously, [address] Similar postsurgical change right hilum with corresponding volume loss right hemothorax following lobectomy. Ongoing diffuse interstitial opacities, possible interstitial pulmonary edema. Maintaining O2 sats in the 90s on 3 L nasal cannula. Denies shortness of breath. 03/02/2024 transferred out of ICU to stepdown unit yesterday. Denies shortness of breath. Maintaining O2 sats in the 90s on 3 L nasal cannula. Continues on Zosyn. Afebrile, labs pending. telemetry sinus rhythm. Reporting right chest wall pain; currently on Dilaudid [employer] as well as Monmouth's as per cardiothoracic surgery. Denies lightheadedness dizziness or focal deficits. 03/05/2024 sitting up in chair,complains of right chest wall pain. Chest tubes to water suction, chest x-ray pending. telemetry sinus rhythm. Denies shortness of breath, maintaining O2 sats in the mid to high 90s on room air. Continues on Zosyn, afebrile, normal WBC. 03/06/2024 continues with 2 right sided chest tubes to waterseal, positive leak, complains of right chest wall pain. Chest x-ray pending. Denies shortness of breath, maintaining O2 sats in the mid 90s on room air .hemoglobin 8.4, platelets 405. afebrile, normal WBC. maintained on Zosyn, nebulized b ronchodilators. Hemoglobin 8.4, platelets 405. Renal function stable. Reports significant improvement on lactobacillus with his canker sores and is able to eat easier. 03/07/2024 anterior/medial chest tube discontinued. Posterior chest tube remains. right chest wall pain improved. Chest x-ray pending .sitting up in chair, denies chest pain, palpitations or increase in shortness of breath. Maintaining O2 sats in the mid 90s on room air. telemetry sinus rhythm. Objective - Vital Signs Vital signs: Vital Signs Temp 98.3 F 03/07/24 12:00 Pulse 69 03/07/24 12:00 Resp 18 03/07/24 12:00 BP 104/65 03/07/24 12:00 Pulse Ox 96 03/07/24 12:00 FiO2 Intake & Output 03/06/24 03/07/24 03/07/24 18:59 06:59 18:59 Intake Total 1370 120 918 Output Total 2034 2500 310 Balance -665 -2380 608 Weight 100.4 kg Intake: Oral 1370 120 918 Output: Chest Tube Drainage 10 0 10 Chest Tube Right 0 0 10 Posterior Chest right posterior medial 10 0 0 chest tube Urine 2024 2500 300 Other: Voiding Method Urinal Urinal # Voids 1 # Bowel Movements 1 ABP, PAP, CO, CI - Last Documented Arterial Blood Pressure 105/65 - Exam General: Alert and oriented x 3, sitting up in chair,no acute distress.] HEENT: [Normocephalic, PERRL. EOMI. conjunctiva normal.MMM. Neck: Supple, no JVD Cardiac: regular rate and rhythm. No S3. No S4. No clicks, rubs. No murmur.] Lungs: Unlabored, equal air entry, right sided expiratory wheeze. Right posterior chest tubes to waterseal. Abdomen: Soft, nontender, nondistended, no organomegaly.+BS Extremes: No edema, no cyanosis no claudication normal pulses, wearing teds.] Skin: [Warm and dry, no rash noted.] Neurologic: CN II - XII grossly intact.] - Labs CBC & Chem 7: 03/06/24 06:50 03/06/24 06:50 Assessment and Plan Assessment: Acute hypoxic respiratory failure, positive groundglass changes bilaterally, chest x-ray reporting ongoing masslike right perihilar opacity measuring up to 3.7 cm. Redemonstrated air-fluid level within the inferior aspect of the opacity. Interstitial density in the left lung shows some improvement. status post diagnostic thoracic appendectomy, open thoracotomy, right middle lobe lobectomy, cryoablation of intercostal nerves VII through III, 02/29/2024. Recent lobectomy of right upper lung secondary to Squamous cell lung CA, discharged 02/12 Leukocytosis, resolved Right middle lobe atelectasis status post bronchoscopy 02/11/2024. Bronchial lavage cultures reporting negative. 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 Chest x-ray pending. chest tubes' management as per CTS. increase ambulation as tolerated .Aggressive pulmonary toileting with CPT, flutter valve nebulized bronchodilators, Symbicort, Zosyn. Pain management. The impression and plan of care has been dictated as directed. : I performed a history and examination of this patient, discussed the same with the dictator. I agree with the dictator's note ,documented as a scribe. Any additional findings or plans will be noted.
--- NOTE | 2024-03-07 14:59 | P.PN ---
Subjective Progress Note Date: 03/07/24 Principal diagnosis: Lung cancer. This is a very pleasant 63-year-old male patient with a known history of chronic and ongoing tobacco dependence of 48 years, chronic obstructive pulmonary disease, chronic back pain, atrial fibrillation. He also has a history of a solitary right upper lobe pulmonary nodule that was positive for squamous cell carcinoma based on a previous wedge resection in December 2023. He was brought back into the hospital for a robotically assisted right upper lobe lobectomy on February 09, 2024. During that hospitalization he was found to have a right middle lobe collapse and had undergone bronchoscopy with BAL. No endobronchial lesions or mucous was identified. He was discharged home on February 13, 2024. He was seen in the emergency department on February 17, 2024 for increasing shortness of breath cough and congestion. He was given azithromycin and discharged to home. He returned to the emergency room again the following day February 18, 2024 with similar symptoms that seem to be worsening. He had a hard time sleeping and was having right sided chest pain. Increased mucus. Chest x-ray shows similar findings of a large predominant right perihilar opacity. Stable small right apical hydropneumothorax. Small increasing right pleural effusion. White count 16.6. Hemoglobin 10.7. Platelets 552. Sodium 127. Potassium 5.1. Bicarb 24. BUN 20. Creatinine 0.98. Glucose 104. Viral screen negative. He is seen today in consultation on the regular medical floor. He is currently sitting up in bed. Awake and alert in no acute distress. He is quite weak. He is maintaining O2 saturations in the low 90s on room air. 02/20/2024, the patient is being seen for a follow-up. Patient is post right upper lobectomy for non-small cell lung cancer. 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 The patient has a persistent atelectasis/pneumonia of the right middle lobe. Currently, the patient is hospitalized for worsening shortness of breath. Procalcitonin level is 0.47. Electrolytes are all within normal range with a BUN of 15 and a creatinine of 0.9. The white cell count is at 15.4 with a hemoglobin of 10.4 and a platelet count of 406. The right upper lobe resection was done on 02/10/2024 and it is consistent with benign lung without any residual malignancy. The lymph nodes are also negative for malignancy. The patient is currently on IV Rocephin. The patient is also on Symbicort as maintenance 2 puffs twice a day and IV fluids with normal saline at rate of 75 cc an hour. He is receiving nebulized albuterol 4 times a day. He is oxygen requirements are at 6 L with a pulse ox of 99% On 02/21/2024, the patient is being seen for a follow-up. The patient is on 5 L of oxygen by nasal cannula and the patient is pulse oxing 91%. Continues to have a congested cough. The blood culture was negative. The sputum sample was negative. The patient's white cell count is at 14 with a hemoglobin 9.9 and a platelet count of 658. BUN is 15 with a creatinine of 0.8 and sodium levels at 134. Remains on Ventolin nebulized treatments, Symbicort maintenance and IV Rocephin. The plan is to repeat the patient's bronchoscopy in a.m. and to reevaluate the right middle lobe bronchus. The chest x-ray from today is essentially unchanged. There is a masslike opacity in the right hilum which is probably an atelectatic right middle lobe. On 02/22/2024, patient is being seen for a follow-up. Earlier this morning, the patient was having significant respiratory distress and cough and congestion. He has required higher oxygen flow at 5 L/min nasal cannula with a pulse ox of 95%. Based on that, a CAT scan of the chest was completed this morning without contrast and the CAT scan showed right upper lobectomy, a cavity was seen in the right suprahilar area with a atelectatic right middle lobe consistent with right middle lobe syndrome, /consolidation/groundglass changes and the patient also had some groundglass opacities in the left upper lobe. Airspace disease also seen in the right with an air-fluid level within the cavity. Small right-sided pleural effusion was noted based on those findings, a bronchoscopy was performed today and as expected, the patient had significant narrowing of the right middle lobe bronchus. There was evidence of bronchomalacia. I was able to pass the bronchoscope to the right middle lobe bronchus and visualize the right middle lobe and right lower lobe. Therapeutic airway suctioning was done. 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 Based on those findings, the patient was started on IV Zosyn and antibiotic modification was done. He seems to be much more comfortable post bronchoscopy. He has been placed on anticoagulation regarding paroxysmal atrial fibrillation. His current rhythm has remained sinus and the patient will be taken off the anticoagulation. The sodium levels at 133, BUN 13 with a creatinine 0.8. The white cell count from yesterday was at 14.4 with a hemoglobin 9.9. The procalcitonin level is at 0.47. On 02/23/2024, the patient is being seen for a follow-up. The patient is post bronchoscopy was done yesterday and please refer to the documented report. Repeat chest x-ray was also done today and the patient's findings are essentially stable. There is a right suprahilar opacity which remains essentially unchanged and area of atelectatic/infected right middle lobe. Meanwhile, the patient remains on IV Zosyn. The white cell count is down to 11.7. Hemoglobin is stable at 9.0 and the patient was taken off the anticoagulation. Electrolytes are stable. BUN is 12 with a creatinine of 0.8. Awaiting the results of the bronchial lavage. Oxygenation is also stable and the patient remains on 5 L of oxygen by nasal cannula with a pulse ox of 98%. He is sitting up to bedside chair. He is awake and alert. Denies having any pain. He does report some ongoing shortness of breath and a congested cough. He gets short of breath with activity. He is afebrile for now. On today's evaluation of 02/24/2024, the patient is feeling better. His oxygenation is improved and the patient is currently down to 3 L of oxygen nasal cannula with pulse ox of 94%. A follow-up chest x-ray from today shows essentially normal interval change and there is volume loss and right midlung atelectasis/consolidation in addition to a right apical pneumothorax. There is ongoing diffuse groundglass pulmonary filtrates and small right-sided pleural effusion. Bronchoscopy and bronchial lavage was done. Cultures are still pending for now. There is polymicrobial on the Gram stain including few gram- positive cocci and rare gram-negative bacilli. The patient remains on IV Zosyn. The patient remains on Symbicort and DuoNeb the regiment [id number]. The patient is on Symbicort. No issues with pain. Cough and congestion has subsided. Cardiac rhythm is a sinus. The white cell count is 11 with a hemoglobin of 9 and a platelet count of 640. Electrolytes are all within normal limits. BUN is 12 with a creatinine 0.8. On 02/25/2024, the patient is feeling better. Less short of breath. Less bronchospastic and wheezy. He has been weaned down to 2 L of oxygen by nasal cannula. Bronchoscopy endobronchial lavage is not yielded any microbial growth. The patient has responded nicely to IV Zosyn. DuoNeb nebulized treatments [id number]. Cough and congestion has subsided significantly. Repeat chest x-ray was done today and essentially there is no significant interval change. Small right-sided pleural effusion is seen. On today's evaluation of 02/26/2024, the patient is feeling better. Cough and congestion has subsided significantly. Cultures from the bronchioloalveolar lavage has been negative. The patient remains on IV Zosyn. He is currently on oxygen at 2 L/min nasal cannula. He remains on bronchodilators and steroids. Labs show a white cell count of 7.7 with a hemoglobin 9 and a platelet count of 710. Electrolytes are all within normal limits. Troponins are negative. The patient is seen today February 27, 2024 in follow-up on the regular medical floor. He is currently sitting up in a chair at the bedside. Awake and alert in no acute distress. He is maintaining O2 saturations in the 90s on 2 L/min per nasal cannula. He is afebrile. Hemodynamically stable. Chest x-ray continues to show ongoing masslike right perihilar opacity measuring up to 3.7 cm. Redemonstrated air-fluid level within the inferior aspect of the opacity. This is mostly the right middle lobe volume loss. Sputum and blood cultures revealed no growth. Bronchial wash cultures revealed no growth. White count 12.6. Hemoglobin 9.1. Platelets 696. Sodium 137. Potassium 4.5. Bicarb 27. BUN 10. Creatinine 0.8. Glucose 166. He remains on DuoNeb inhalations, Symbicort, Solu-Medrol. Antibiotics in the form of Zosyn. Heparin for DVT pr ophylaxis. The patient is seen today February 28, 2024 in follow-up on the regular medical floor. He is currently awake and alert in no acute distress. Sitting up in a chair at the bedside. Maintaining good O2 saturations in the 90s on 2 L/min per nasal cannula. He has been afebrile. Hemodynamically stable. Bronchial wash cultures from 02/22/2024 revealed no growth. Blood cultures revealed no growth. Sputum culture revealed no growth. He remains on DuoNeb inhalations, Symbicort, Mucinex. Antibiotics in the form of Zosyn. Patient was seen today on 03/20, patient is doing well, relatively asymptomatic, scheduled for right middle lobectomy sometime later today. In the meantime the patient is doing well, no cough no wheezing no shortness of breath, remains on Zosyn. Remains on bronchodilators. WBC count today is 11.7 hemoglobin 10.2 electrolytes are normal renal profile is normal Seen today on 03/01/2024, patient is doing well, underwent diagnostic thoracoscopy open thoracotomy right middle lobectomy cryoablation of intercostal nerves VII through III patient is now in the ICU, sitting at the bedside chair, does not seem to be in any distress, on 3 L nasal cannula achieving 1250 cc on his incentive spirometry. Patient is hemodynamically stable, not on any pressors not requiring any inotropes. Medial and posterior right-sided chest tubes noted patient continues to have right apical pneumothorax and has continuous air leak noted.WBC count is 17.2 hemoglobin is 9.5 electrolytes are normal renal profile is normal Patient was seen today on 03/02/2024, patient is now postoperative day #2, seems to be doing fairly well.POD #2 diagnostic thoracoscopy, open thoracotomy, right middle lobectomy, cryoablation of intercostal nerves VII through III patient is sitting at the bedside chair, does not seem to be in any distress, remains on Zosyn remains on bronchodilators remains on 3 L nasal cannula achieving about 1500 cc on his incentive spirometry he is hemodynamically stable, airleak noted intermittently in both chest tubes continues to have right-sided pneumothorax. Currently however the patient is doing better than expected Seen today on 03/03/2024, patient is now postoperative day #3 patient is sitting at the bedside recliner, does not seem to be in any distress, denies shortness of breath, he does have some pain but seems to be fairly well-controlled at the surgical site/chest wall pain. Patient is receiving Dilaudid IV push his Dilaudid [employer] pump has been discontinued. My on Zosyn remains on bronchodilators, continues to have air leak in the chest tubes, and continues to have right apical pneumothorax. WBC count is 11 hemoglobin is 8.7 electrolytes are normal renal profile is normal dramatic improvement in his WBC count for the first time is noted, was as high as 20.2 yesterday Patient was seen today on 11/18, basically much better today, feeling better breathing easier he is now postoperative day #4 continues to have pneumothorax on the right side continues to have air leak but clinically the patient is feeling great. Both chest tubes remain in place on the right side. Continues to have air leak. WBC count is 7.1 hemoglobin 8.4 electrolytes are normal renal profile is normal Progress note dated March 05, 2024. 63-year-old male well-known to me. The patient was initially seen for a nodule/mass, in the right upper lobe. The patient had a wedge resection performed by Dr. Winston, and subsequent to that, had a completion right upper lobectomy. After that procedure, the patient had chronic collapse of the right middle lobe, and the patient was readmitted with a diagnosis of chronic collapse, and underwent a right middle lobectomy, by Dr. Winston. He is postoperative day #5. He is currently on room air. No IV fluids. He is feeling well. He is sitting up in a chair, in no distress. He continues to use the incentive spirometer. Current labs are reviewed. White count 4.9, hemoglobin 8.2, hematocrit 26.1, platelet count normal. Sodium 135, potassium 4, chlorides 102, CO2 30 BUN 8, creatinine 0.95. Glucose is 85. Calcium is 7.5. Chest x-ray shows a right apical pneumothorax, and some infiltrate at the right lung base. Progress note dated March 06, 2024. 63-year-old male well-known to me. The patient is status post right middle lobectomy. He initially had a wedge resection of the right upper lobe lesion, which turned out to be non-small cell lung cancer. The patient then had a robotically assisted completion right upper lobectomy. After that procedure, the patient had collapse of the right middle lobe, which would not reexpand. Hence, the most recent surgery. He is sitting in the chair, next to the hospital bed. He is in no distress. He is on room air. He is getting saline at 10 cc an hour. 2 chest tubes remain on the right side. Patient does have a leak. White count 5.2, hemoglobin 8.4, hematocrit 26.5, platelet count 405,000. Sodium 133, potassium 3.9, chlorides 102, CO2 29, BUN 7, and creatinine 1.01. Calcium 7.8. Chest x-ray shows a right upper lobe pneumothorax. Progress note dated 03/07/2024. 63-year-old male seen today in room 357. The patient is status post right middle lobectomy. He initially had a wedge resection of the right upper lobe for lung cancer, and the subsequent to that, had a completion right upper lobectomy. Currently, he is resting, 50 cm on room air. Getting saline at 10 cc an hour. 1 chest tube has been removed. He has a leak from the subsequent chest tube. Chest x-ray shows a small right apical pneumothorax. No new labs today. X-rays are reviewed. Clinically stable without any complaints. He continues working on his incentive spirometer, and his flutter valve. Objective - Vital Signs Vital signs: Vital Signs Temp 98.3 F 03/07/24 12:00 Pulse 69 03/07/24 12:00 Resp 18 03/07/24 12:00 BP 104/65 03/07/24 12:00 Pulse Ox 96 03/07/24 12:00 FiO2 Intake & Output 03/06/24 03/07/24 03/07/24 18:59 06:59 18:59 Intake Total 1370 120 918 Output Total 2034 2500 310 Balance -665 -2380 608 Weight 100.4 kg Intake: Oral 1370 120 918 Output: Chest Tube Drainage 10 0 10 Chest Tube Right 0 0 10 Posterior Chest right posterior medial 10 0 0 chest tube Urine 2024 2500 300 Other: Voiding Method Urinal Urinal # Voids 1 # Bowel Movements 1 ABP, PAP, CO, CI - Last Documented Arterial Blood Pressure 105/65 - Exam No acute distress, oriented 3. HEENT examination is grossly unremarkable. Mucous membranes are moist. No oral lesions. Neck supple. Full range of motion. No adenopathy thyromegaly or neck vein distention. Cardiovascular examination reveals regular rhythm rate. S1-S2 normal. No S3 or S4. No discernible murmur noted. Lungs reveal bilateral rhonchi. No wheezes or crackles. Breath sounds equal. Abdomen soft bowel sounds are heard. No masses or tenderness. Extremities are intact. No cyanosis or clubbing. Minimal edema. Skin is without rash or lesion. Neurologic examination is brief but nonfocal. - Labs CBC & Chem 7: 03/06/24 06:50 03/06/24 06:50 Assessment and Plan Assessment: Postoperative day #7, status post right middle lobectomy, and cryoablation of intercostal nerves. Acute hypoxemic respiratory failure. Previous wedge resection of right upper lobe, followed by a robotically assisted right upper lobectomy. Stage I bronchogenic carcinoma, squamous cell, T1b, N0 M0. Atrial fibrillation with RVR. Persistently collapsed right middle lobe. Chronic and ongoing tobacco dependence of 48 years. History of COPD. History of chronic back pain. Plan: Plan dated March 05, 2024. The patient is seen today in room 357. He sitting in the chair next to the hospital bed. He appears to be relatively comfortable. Labs, x-rays, and medications are reviewed. We will continue to follow the patient, make recommendations along the way. Right sided chest tubes remain in place. The patient initially had a wedge resection of right upper lobe, for an early stage non-small cell lung cancer, and then had a completion right upper lobectomy. Subsequent to that, the patient had a nonexpanding right middle lobe, and despite bronchoscopy, required right middle lobectomy. We will continue to follow make recommendations along the way. Prognosis is guarded. Plan dated March 06, 2024. The patient is doing relatively well. He has been very patient. The patient is currently on room air. He is getting saline at 10 cc an hour. 2 right-sided chest tubes remain. Chest x-ray shows a right sided pneumothorax. It is apically situated. The patient does have a leak. Labs, x-rays, and all medications are reviewed. We will continue to follow patient, make recommendations. We recommend deep breathing, coughing, clearing of secretions, and use of the incentive spirometer. Plan dated March 07, 2024. The patient is doing better. 1 chest tube has been removed. He has a leak in the remaining chest tube. He continues with his incentive spirometer and his flutter valve. Labs, x-rays, and medications are reviewed. He seems to be in good spirits. He sitting in the chair next to the hospital bed. Family members are in the room. We will continue to follow the patient, make recommendations along the way. Time with Patient: Less than 30
--- NOTE | 2024-03-07 22:52 | XR ---
EXAMINATION TYPE: XR chest 2V DATE OF EXAM: 03/07/2024 6:46 AM COMPARISON: 03/06/2024 CLINICAL INDICATION: Male, 63 years old with history of Post right upper and middle lobectomy, TECHNIQUE: XR chest 2V view(s) obtained. FINDINGS: The heart size is normal. The pulmonary vasculature is normal. Right apical pneumothorax remains present. Two right-sided chest tubes are present. Mild atelectasis may be at the left base. Fullness in the right hilar region.. IMPRESSION: 1. Stable 2 view chest. 2. Postlobectomy right apical pneumothorax [facility], , 03/07/2024 10:50 PM
--- NOTE | 2024-03-08 07:39 | XR ---
EXAMINATION TYPE: XR chest 2V DATE OF EXAM: 03/08/2024 6:24 AM COMPARISON: 03/07/2024 CLINICAL INDICATION: Male, 63 years old with history of Post right upper and middle lobectomy, TECHNIQUE: XR chest 2V view(s) obtained. FINDINGS: The heart size is normal. The pulmonary vasculature is normal. Some mild infiltrate may be at the right base.. There is a stable appearance of the right hilar dens ity. Right apical pneumothorax remains present post lobectomy. Right-sided chest tube is present. IMPRESSION: 1. Stable appearance to the chest [facility], , 03/08/2024 7:37 AM
--- NOTE | 2024-03-08 08:21 | P.PN ---
Subjective Progress Note Date: 03/08/24 Principal diagnosis: Recent right upper wedge resection/right upper lobectomy for squamous cell carcinoma, right middle lobe syndrome, pneumonia. Previous medical history of right upper lobe neoplasm with pathology consistent with squamous cell carcinoma status post robotic assisted thoracoscopic wedge resection right upper lobe mass with hilar and mediastinal lymph node dissection and subsequent robotic assisted thoracoscopic completion right upper lobectomy, paroxysmal atrial fibrillation on Eliquis for anticoagulation outpatient, COPD, obesity, previous tobacco dependence with recent cessation, chronic back pain with chronic narcotic dependency, benign prostatic hypertrophy, anxiety and depression POD #8 diagnostic thoracoscopy, open thoracotomy, right middle lobectomy, cryoablation of intercostal nerves VII through III Prolonged airleak, somewhat expected given third right lung surgery The patient was seen and examined this morning sitting up in a recliner on the cardiac stepdown unit in no acute distress. States he had decent sleep last night. The patient continues to complain of active postsurgical pain to his right chest wall although states it is better controlled, denies shortness of breath. Continues to ask for IV Dilaudid every 4 hours, [place] every 4-5 hours, remains on Robaxin 4 times daily. IV Zosyn completed and discontinued yesterday. Remains on bronchodilators per pulmonology. Currently on room air with oxygen saturation in the high 90s, able to achieve 2500 mL on his incentive spirometry. Patient in sinus rhythm on the monitor, hemodynamically stable. Posterior right chest tube present to waterseal, air leak present with ex piration and coughing. Chest x-ray reviewed. Patient was ambulatory in the hallway without difficulty. No other new concerns. Objective - Vital Signs Vital signs: Vital Signs Temp 98 F 03/08/24 04:00 Pulse 76 03/08/24 04:00 Resp 17 03/08/24 04:00 BP 120/72 03/08/24 04:00 Pulse Ox 95 03/08/24 04:00 FiO2 Intake & Output 03/07/24 03/08/24 03/08/24 18:59 06:59 18:59 Intake Total 1036 Output Total 910 1200 Balance 126 -1200 Weight 97.8 kg Intake: Oral 1036 Output: Chest Tube Drainage 10 0 Chest Tube Right 10 0 Posterior Chest right posterior medial 0 chest tube Urine 900 1200 Other: Voiding Method Urinal ABP, PAP, CO, CI - Last Documented Arterial Blood Pressure 105/65 - Exam CONSTITUTIONAL: Appears comfortable, cooperative, no acute distress RESPIRATORY: Lungs sounds diminished bilaterally. Respirations even, nonlabored. Currently on room air with oxygen saturation 95%. Able to achieve 2500 mL on incentive spirometry. Strong cough. CARDIOVASCULAR: S1, S2 present. Regular rate and rhythm, sinus rhythm on telemetry. Palpable peripheral pulses bilaterally. No edema present. No calf pain or tenderness noted. SCDs present. GASTROINTESTINAL: Abdomen soft, nontender, nondistended. Active bowel sounds present 4 quadrants. Tolerating diet. Positive bowel movement 03/06 GENITOURINARY: Continues to void, 2100 mL in the last 24 hours INTEGUMENTARY: Skin is warm and dry with evidence of good perfusion. Thoracic incision well approximated and covered with dry intact dressing. NEUROLOGIC: Cranial nerves II through XII intact MUSKULOSKELETAL: Able to move all extremities, strength equal bilaterally PSYCHIATRIC: Alert and oriented to person place and time, appropriate affect, intact judgment and insight INVASIVE LINES AND TUBES: Right pleural chest tube present to waterseal, air leaks present with expiration and coughing. Right posterior pleural chest tube with 20 mL in the last 24 hours. - Allied health notes Allied health notes reviewed: nursing - Labs CBC & Chem 7: 03/06/24 06:50 03/06/24 06:50 - Imaging and Cardiology Chest x-ray: report reviewed, image reviewed Assessment and Plan Assessment: Acute hypoxic respiratory failure secondary to acute infection in the right middle lobe Right midlung consolidation, right middle lobe syndrome with secondary pneumonia, status post bronchoscopy performed on 02/11/2024 and 02/22/24, atelectatic narrowed right middle lobe bronchus with evidence of bronchomalacia and anatomic distortion secondary to a previous right upper lobe resection, status post diagnostic thoracoscopy, open thoracotomy, right middle lobectomy, cryoablation of intercostal nerves VII through III Leukocytosis secondary to above Hyponatremia History of squamous cell carcinoma, status post wedge resection followed by completion right upper lobectomy Paroxysmal atrial fibrillation, on Eliquis as an outpatient, discontinued this admission Chronic obstructive pulmonary disease Chronic back pain on chronic narcotics History of tobacco dependence with recent cessation in December 2023 Benign prostatic hypertrophy Obesity Anxiety Depression Plan: Continue posterior chest tube to waterseal We did discuss with the patient yesterday the option of going home with Heimlich valve until airleak resolves, patient would need to be off IV Dilaudid which he continues to request every 4 hours Bronchodilators per pulmonology Continue Mucinex Encourage use of incentive spirometry 10 times every hour while awake Continue to monitor daily chest x-rays Pain control per current medication regimen, currently on [place], Dilaudid, Robaxin Continue lopressor with hold parameters Increase activity, ambulate as tolerated. Encourage patient to ambulate in the hallway GI/DVT prophylaxis Medical management other comorbidities per primary care service More recommendations to follow based on patient's clinical course
--- NOTE | 2024-03-08 13:10 | P.PN ---
Subjective Progress Note Date: 03/08/24 Principal diagnosis: Lung cancer. This is a very pleasant 63-year-old male patient with a known history of chronic and ongoing tobacco dependence of 48 years, chronic obstructive pulmonary disease, chronic back pain, atrial fibrillation. He also has a history of a solitary right upper lobe pulmonary nodule that was positive for squamous cell carcinoma based on a previous wedge resection in December 2023. He was brought back into the hospital for a robotically assisted right upper lobe lobectomy on February 09, 2024. During that hospitalization he was found to have a right middle lobe collapse and had undergone bronchoscopy with BAL. No endobronchial lesions or mucous was identified. He was discharged home on February 13, 2024. He was seen in the emergency department on February 17, 2024 for increasing shortness of breath cough and congestion. He was given azithromycin and discharged to home. He returned to the emergency room again the following day February 18, 2024 with similar symptoms that seem to be worsening. He had a hard time sleeping and was having right sided chest pain. Increased mucus. Chest x-ray shows similar findings of a large predominant right perihilar opacity. Stable small right apical hydropneumothorax. Small increasing right pleural effusion. White count 16.6. Hemoglobin 10.7. Platelets 552. Sodium 127. Potassium 5.1. Bicarb 24. BUN 20. Creatinine 0.98. Glucose 104. Viral screen negative. He is seen today in consultation on the regular medical floor. He is currently sitting up in bed. Awake and alert in no acute distress. He is quite weak. He is maintaining O2 saturations in the low 90s on room air. 02/20/2024, the patient is being seen for a follow-up. Patient is post right upper lobectomy for non-small cell lung cancer. 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 The patient has a persistent atelectasis/pneumonia of the right middle lobe. Currently, the patient is hospitalized for worsening shortness of breath. Procalcitonin level is 0.47. Electrolytes are all within normal range with a BUN of 15 and a creatinine of 0.9. The white cell count is at 15.4 with a hemoglobin of 10.4 and a platelet count of 406. The right upper lobe resection was done on 02/10/2024 and it is consistent with benign lung without any residual malignancy. The lymph nodes are also negative for malignancy. The patient is currently on IV Rocephin. The patient is also on Symbicort as maintenance 2 puffs twice a day and IV fluids with normal saline at rate of 75 cc an hour. He is receiving nebulized albuterol 4 times a day. He is oxygen requirements are at 6 L with a pulse ox of 99% On 02/21/2024, the patient is being seen for a follow-up. The patient is on 5 L of oxygen by nasal cannula and the patient is pulse oxing 91%. Continues to have a congested cough. The blood culture was negative. The sputum sample was negative. The patient's white cell count is at 14 with a hemoglobin 9.9 and a platelet count of 658. BUN is 15 with a creatinine of 0.8 and sodium levels at 134. Remains on Ventolin nebulized treatments, Symbicort maintenance and IV Rocephin. The plan is to repeat the patient's bronchoscopy in a.m. and to reevaluate the right middle lobe bronchus. The chest x-ray from today is essentially unchanged. There is a masslike opacity in the right hilum which is probably an atelectatic right middle lobe. On 02/22/2024, patient is being seen for a follow-up. Earlier this morning, the patient was having significant respiratory distress and cough and congestion. He has required higher oxygen flow at 5 L/min nasal cannula with a pulse ox of 95%. Based on that, a CAT scan of the chest was completed this morning without contrast and the CAT scan showed right upper lobectomy, a cavity was seen in the right suprahilar area with a atelectatic right middle lobe consistent with right middle lobe syndrome, /consolidation/groundglass changes and the patient also had some groundglass opacities in the left upper lobe. Airspace disease also seen in the right with an air-fluid level within the cavity. Small right-sided pleural effusion was noted based on those findings, a bronchoscopy was performed today and as expected, the patient had significant narrowing of the right middle lobe bronchus. There was evidence of bronchomalacia. I was able to pass the bronchoscope to the right middle lobe bronchus and visualize the right middle lobe and right lower lobe. Therapeutic airway suctioning was done. 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 Based on those findings, the patient was started on IV Zosyn and antibiotic modification was done. He seems to be much more comfortable post bronchoscopy. He has been placed on anticoagulation regarding paroxysmal atrial fibrillation. His current rhythm has remained sinus and the patient will be taken off the anticoagulation. The sodium levels at 133, BUN 13 with a creatinine 0.8. The white cell count from yesterday was at 14.4 with a hemoglobin 9.9. The procalcitonin level is at 0.47. On 02/23/2024, the patient is being seen for a follow-up. The patient is post bronchoscopy was done yesterday and please refer to the documented report. Repeat chest x-ray was also done today and the patient's findings are essentially stable. There is a right suprahilar opacity which remains essentially unchanged and area of atelectatic/infected right middle lobe. Meanwhile, the patient remains on IV Zosyn. The white cell count is down to 11.7. Hemoglobin is stable at 9.0 and the patient was taken off the anticoagulation. Electrolytes are stable. BUN is 12 with a creatinine of 0.8. Awaiting the results of the bronchial lavage. Oxygenation is also stable and the patient remains on 5 L of oxygen by nasal cannula with a pulse ox of 98%. He is sitting up to bedside chair. He is awake and alert. Denies having any pain. He does report some ongoing shortness of breath and a congested cough. He gets short of breath with activity. He is afebrile for now. On today's evaluation of 02/24/2024, the patient is feeling better. His oxygenation is improved and the patient is currently down to 3 L of oxygen nasal cannula with pulse ox of 94%. A follow-up chest x-ray from today shows essentially normal interval change and there is volume loss and right midlung atelectasis/consolidation in addition to a right apical pneumothorax. There is ongoing diffuse groundglass pulmonary filtrates and small right-sided pleural effusion. Bronchoscopy and bronchial lavage was done. Cultures are still pending for now. There is polymicrobial on the Gram stain including few gram- positive cocci and rare gram-negative bacilli. The patient remains on IV Zosyn. The patient remains on Symbicort and DuoNeb the regiment [id number]. The patient is on Symbicort. No issues with pain. Cough and congestion has subsided. Cardiac rhythm is a sinus. The white cell count is 11 with a hemoglobin of 9 and a platelet count of 640. Electrolytes are all within normal limits. BUN is 12 with a creatinine 0.8. On 02/25/2024, the patient is feeling better. Less short of breath. Less bronchospastic and wheezy. He has been weaned down to 2 L of oxygen by nasal cannula. Bronchoscopy endobronchial lavage is not yielded any microbial growth. The patient has responded nicely to IV Zosyn. DuoNeb nebulized treatments [id number]. Cough and congestion has subsided significantly. Repeat chest x-ray was done today and essentially there is no significant interval change. Small right-sided pleural effusion is seen. On today's evaluation of 02/26/2024, the patient is feeling better. Cough and congestion has subsided significantly. Cultures from the bronchioloalveolar lavage has been negative. The patient remains on IV Zosyn. He is currently on oxygen at 2 L/min nasal cannula. He remains on bronchodilators and steroids. Labs show a white cell count of 7.7 with a hemoglobin 9 and a platelet count of 710. Electrolytes are all within normal limits. Troponins are negative. The patient is seen today February 27, 2024 in follow-up on the regular medical floor. He is currently sitting up in a chair at the bedside. Awake and alert in no acute distress. He is maintaining O2 saturations in the 90s on 2 L/min per nasal cannula. He is afebrile. Hemodynamically stable. Chest x-ray continues to show ongoing masslike right perihilar opacity measuring up to 3.7 cm. Redemonstrated air-fluid level within the inferior aspect of the opacity. This is mostly the right middle lobe volume loss. Sputum and blood cultures revealed no growth. Bronchial wash cultures revealed no growth. White count 12.6. Hemoglobin 9.1. Platelets 696. Sodium 137. Potassium 4.5. Bicarb 27. BUN 10. Creatinine 0.8. Glucose 166. He remains on DuoNeb inhalations, Symbicort, Solu-Medrol. Antibiotics in the form of Zosyn. Heparin for DVT pr ophylaxis. The patient is seen today February 28, 2024 in follow-up on the regular medical floor. He is currently awake and alert in no acute distress. Sitting up in a chair at the bedside. Maintaining good O2 saturations in the 90s on 2 L/min per nasal cannula. He has been afebrile. Hemodynamically stable. Bronchial wash cultures from 02/22/2024 revealed no growth. Blood cultures revealed no growth. Sputum culture revealed no growth. He remains on DuoNeb inhalations, Symbicort, Mucinex. Antibiotics in the form of Zosyn. Patient was seen today on 03/20, patient is doing well, relatively asymptomatic, scheduled for right middle lobectomy sometime later today. In the meantime the patient is doing well, no cough no wheezing no shortness of breath, remains on Zosyn. Remains on bronchodilators. WBC count today is 11.7 hemoglobin 10.2 electrolytes are normal renal profile is normal Seen today on 03/01/2024, patient is doing well, underwent diagnostic thoracoscopy open thoracotomy right middle lobectomy cryoablation of intercostal nerves VII through III patient is now in the ICU, sitting at the bedside chair, does not seem to be in any distress, on 3 L nasal cannula achieving 1250 cc on his incentive spirometry. Patient is hemodynamically stable, not on any pressors not requiring any inotropes. Medial and posterior right-sided chest tubes noted patient continues to have right apical pneumothorax and has continuous air leak noted.WBC count is 17.2 hemoglobin is 9.5 electrolytes are normal renal profile is normal Patient was seen today on 03/02/2024, patient is now postoperative day #2, seems to be doing fairly well.POD #2 diagnostic thoracoscopy, open thoracotomy, right middle lobectomy, cryoablation of intercostal nerves VII through III patient is sitting at the bedside chair, does not seem to be in any distress, remains on Zosyn remains on bronchodilators remains on 3 L nasal cannula achieving about 1500 cc on his incentive spirometry he is hemodynamically stable, airleak noted intermittently in both chest tubes continues to have right-sided pneumothorax. Currently however the patient is doing better than expected Seen today on 03/03/2024, patient is now postoperative day #3 patient is sitting at the bedside recliner, does not seem to be in any distress, denies shortness of breath, he does have some pain but seems to be fairly well-controlled at the surgical site/chest wall pain. Patient is receiving Dilaudid IV push his Dilaudid AIR [employer]IS[employer]BM[employer] OFF[employer]ER pump has been discontinued. My on Zosyn remains on bronchodilators, continues to have air leak in the chest tubes, and continues to have right apical pneumothorax. WBC count is 11 hemoglobin is 8.7 electrolytes are normal renal profile is normal dramatic improvement in his WBC count for the first time is noted, was as high as 20.2 yesterday Patient was seen today on 11/18, basically much better today, feeling better breathing easier he is now postoperative day #4 continues to have pneumothorax on the right side continues to have air leak but clinically the patient is feeling great. Both chest tubes remain in place on the right side. Continues to have air leak. WBC count is 7.1 hemoglobin 8.4 electrolytes are normal renal profile is normal Progress note dated March 05, 2024. 63-year-old male well-known to me. The patient was initially seen for a nodule/mass, in the right upper lobe. The patient had a wedge resection performed by Dr. Winston, and subsequent to that, had a completion right upper lobectomy. After that procedure, the patient had chronic collapse of the right middle lobe, and the patient was readmitted with a diagnosis of chronic collapse, and underwent a right middle lobectomy, by Dr. Winston. He is postoperative day #5. He is currently on room air. No IV fluids. He is feeling well. He is sitting up in a chair, in no distress. He continues to use the incentive spirometer. Current labs are reviewed. White count 4.9, hemoglobin 8.2, hematocrit 26.1, platelet count normal. Sodium 135, potassium 4, chlorides 102, CO2 30 BUN 8, creatinine 0.95. Glucose is 85. Calcium is 7.5. Chest x-ray shows a right apical pneumothorax, and some infiltrate at the right lung base. Progress note dated March 06, 2024. 63-year-old male well-known to me. The patient is status post right middle lobectomy. He initially had a wedge resection of the right upper lobe lesion, which turned out to be non-small cell lung cancer. The patient then had a robotically assisted completion right upper lobectomy. After that procedure, the patient had collapse of the right middle lobe, which would not reexpand. Hence, the most recent surgery. He is sitting in the chair, next to the hospital bed. He is in no distress. He is on room air. He is getting saline at 10 cc an hour. 2 chest tubes remain on the right side. Patient does have a leak. White count 5.2, hemoglobin 8.4, hematocrit 26.5, platelet count 405,000. Sodium 133, potassium 3.9, chlorides 102, CO2 29, BUN 7, and creatinine 1.01. Calcium 7.8. Chest x-ray shows a right upper lobe pneumothorax. Progress note dated 03/07/2024. 63-year-old male seen today in room 357. The patient is status post right middle lobectomy. He initially had a wedge resection of the right upper lobe for lung cancer, and the subsequent to that, had a completion right upper lobectomy. Currently, he is resting, 50 cm on room air. Getting saline at 10 cc an hour. 1 chest tube has been removed. He has a leak from the subsequent chest tube. Chest x-ray shows a small right apical pneumothorax. No new labs today. X-rays are reviewed. Clinically stable without any complaints. He continues working on his incentive spirometer, and his flutter valve. Progress note dated March 08, 2024. 63-year-old male seen today in room 357. This patient is status post right middle lobectomy. He is on room air. No IV fluids. Chest x-ray shows a small right apical pneumothorax, which is unchanged. 1 chest tube remains. There is a leak. Clinically, he feels well. The patient is sitting in a chair next to his hospital bed. No new labs today. Chest x-ray today is stable and is essentially unchanged. Objective - Vital Signs Vital signs: Vital Signs Temp 98.1 F 03/08/24 08:44 Pulse 72 03/08/24 11:26 Resp 18 03/08/24 11:00 BP 102/57 03/08/24 11:00 Pulse Ox 97 03/08/24 11:00 FiO2 Intake & Output 03/07/24 03/08/24 03/08/24 18:59 06:59 18:59 Intake Total 1036 910 Output Total 910 1200 1180 Balance 126 -1200 -270 Weight 97.8 kg Intake: IV 10 Invasive Line 7 10 Oral 1036 900 Output: Chest Tube Drainage 10 0 5 Chest Tube Right 10 0 5 Posterior Chest right posterior medial 0 chest tube Urine 900 1200 1175 Other: Voiding Method Urinal Urinal # Bowel Movements 0 ABP, PAP, CO, CI - Last Documented Arterial Blood Pressure 105/65 - Exam No acute distress, oriented 3. HEENT examination is grossly unremarkable. Mucous membranes are moist. No oral lesions. Neck supple. Full range of motion. No adenopathy thyromegaly or neck vein distention. Cardiovascular examination reveals regular rhythm rate. S1-S2 normal. No S3 or S4. No discernible murmur noted. Lungs reveal bilateral rhonchi. No wheezes or crackles. Breath sounds equal. Abdomen soft bowel sounds are heard. No masses or tenderness. Extremities are intact. No cyanosis or clubbing. Minimal edema. Skin is without rash or lesion. Neurologic examination is brief but nonfocal. - Labs CBC & Chem 7: 03/06/24 06:50 03/06/24 06:50 Assessment and Plan Assessment: Postoperative day #8, status post right middle lobectomy, and cryoablation of intercostal nerves. Acute hypoxemic respiratory failure. Previous wedge resection of right upper lobe, followed by a robotically assisted right upper lobectomy. Stage I bronchogenic carcinoma, squamous cell, T1b, N0 M0. Atrial fibrillation with RVR. Persistently collapsed right middle lobe. Chronic and ongoing tobacco dependence of 48 years. History of COPD. History of chronic back pain. Plan: Plan dated March 05, 2024. The patient is seen today in room 357. He sitting in the chair next to the hospital bed. He appears to be relatively comfortable. Labs, x-rays, and medications are reviewed. We will continue to follow the patient, make recommendations along the way. Right sided chest tubes remain in place. The patient initially had a wedge resection of right upper lobe, for an early stage non-small cell lung cancer, and then had a completion right upper lobectomy. Subsequent to that, the patient had a nonexpanding right middle lobe, and despite bronchoscopy, required right middle lobectomy. We will continue to follow make recommendations along the way. Prognosis is guarded. Plan dated March 06, 2024. The patient is doing relatively well. He has been very patient. The patient is currently on room air. He is getting saline at 10 cc an hour. 2 right-sided chest tubes remain. Chest x-ray shows a right sided pneumothorax. It is apically situated. The patient does have a leak. Labs, x-rays, and all medications are reviewed. We will continue to follow patient, make recommendati ons. We recommend deep breathing, coughing, clearing of secretions, and use of the incentive spirometer. Plan dated March 07, 2024. The patient is doing better. 1 chest tube has been removed. He has a leak in the remaining chest tube. He continues with his incentive spirometer and his flutter valve. Labs, x-rays, and medications are reviewed. He seems to be in good spirits. He sitting in the chair next to the hospital bed. Family members are in the room. We will continue to follow the patient, make recommendations along the way. Plan dated March 08, 2024. The patient is seen today in room 357. He is clinically stable. He is on room air. No IV fluids. 1 chest tube remains in on the right side. There is a leak. Chest x-ray shows right apical pneumothorax, unchanged. Labs, x-rays, and all medications are reviewed. We will continue to follow. We recommend daily chest x-rays, continue use of the incentive spirometer, deep breathing, coughing, clearing of secretions. Prognosis is guarded. Time with Patient: Less than 30
--- NOTE | 2024-03-08 15:08 | P.PN ---
Subjective Progress Note Date: 03/08/24 H&P Date: 02/19/24 Chief Complaint: Cough, diaphoresis, shortness of breath Brian is a 63-year-old white male with known squamous cell carcinoma. He had underwent a mediastinal lymph node dissection and wedge resection of the lung on December 27, 2023. He returned back and February 08 for a right upper lobe lobectomy. While here he had collapse of the right middle lung and underwent a bronchoscopy and bronc and BAL. He developed a complication of paroxysmal atrial fibrillation during his stay. He did improve and was sent home in stable condition. He returned emergency room on 1121 with shortness of breath and cough was sent home. He returned again on 02/18/2024 with worsening symptoms. Found to have a leukocytosis coughing and not feeling well. Also complaining of left-sided chest pain and right-sided chest pain at his surgical site. This morning he isb in sinus rhythm per telemetry heart rates controlled in the 80s O2 saturation 93% on room air. Laboratory studies now show a leukocytosis 16 6 hemoglobin 10.7 and a left shift with the neutrophils at 14,600. Blood chemistries do show a hyponatremia with a sodium 127 chloride 95, calcium is 7.9. Total protein is 6.2 with a albumin of 3.2. 02/20/2024: Brian was reevaluated for his right middle lobe pneumonia. Vital signs show he is afebrile heart rate and respiratory rate blood pressure control. He is on 6 L of O2 via nasal cannula. WBC count is improved now 15.4, hemoglobin 10.4 neutrophils are 14.23, chemistries show sodium 133. Sputum and blood cultures pending. 02/21/2024: Parents feeling slightly better today. He is being treated for his right middle lobe pneumonia. His regular lobe and collapsed after his right upper lobe surgical assisted lobectomy. He remains on ceftriaxone and azithromycin for antibiotics apixaban for anticoagulation acetylcysteine and guaifenesin for mucus production. He is on Symbicort and Atrovent for inhalation therapy at this time. 02/22/2024: Patient could not be seen today as he was down for his bronchoscopy. Labs and chart are reviewed today. Patient remains on Zosyn. He has Eliquis for anticoagulation. He has DuoNeb updrafts or shortness of breath is on Mucomyst and Symbicort. 02/23/2024 patient awake alert oriented 3 complains of chest pain dyspnea 02/24/2024 patient awake alert oriented 3 complains of chest pain dyspnea, status post lung resection 02/25/2024 Patient awake alert oriented 3 vital signs are stable patient is afebrile, patient has been complaining of intermittent chest discomfort, EKG no acute changes' 02/26/2024 Patient awake alert oriented 3 vital signs are stable patient is currently afebrile, no new chest pain today 02/27/24 continues on Zosyn, nebulized bronchodilators, afebrile, WBC 12.66. , Bronch ,sputum and blood cultures reporting negative.ambulated in the hallway earlier this morning, tolerated exertion well. Currently sitting up in chair, maintaining O2 sats in the mid 90s on 2 L nasal cannula. Chest x-ray reporting ongoing masslike right perihilar opacity measuring up to 3.7 cm. Redemonstrated air-fluid level within the inferior aspect of the opacity. Interstitial density in the left lung shows some improvement. Reports chest pain with coughing , receiving Clayton scheduled and Dilaudid prn.CTS consulted, recommendations pending. Hemoglobin 9.1, platelets 696 .renal function stable. 02/28/2024 evaluated by CTS and patient is scheduled for right mid lobe lobectomy tomorrow. Complains of left upper molar caries with fracture, Peridex mouthwash ordered. Afebrile, maintained on Zosyn, nebulized bronchodilators, Symbicort and Mucinex. O2 sats in the 90s on 2 L nasal cannula. 02/29/2024 NPO, sitting up in chair, right middle lobe lobectomy scheduled for early this afternoon. Denies chest pain, palpitations or shortness of breath. Maintaining O2 sats in the mid to high 90s on 2 L nasal cannula. continues on Zosyn, afebrile, WBC 11.7, hemoglobin 10.2, renal function and electrolytes within normal limits. 03/01/2024 status post diagnostic thoracic appendectomy, open thoracotomy, right middle lobe lobectomy, cryoablation of intercostal nerves VII through III, postop day #1. Significant pain throughout the night, Clayton was added to pain med regime in addition to Dilaudid [employer]IST with better control currently. Microbiology negative, continues on Zosyn, afebrile, WBC decreased to 17.2. Hemoglobin 9.5, platelets 473, sodium 131, renal function stable, blood sugars controlled, calcium 7.4. Blood pressure soft, mean arterial pressures in the 70s, beta-daniele held. Chest x-ray reporting decreasing size of right apical pneumothorax currently 4.6 cm versus 5.8 cm previously, [address] Similar postsurgical change right hilum with corresponding volume loss right hemothorax following lobectomy. Ongoing diffuse interstitial opacities, possible interstitial pulmonary edema. Maintaining O2 sats in the 90s on 3 L nasal cannula. Denies shortness of breath. 03/02/2024 transferred out of ICU to stepdown unit yesterday. Denies shortness of breath. Maintaining O2 sats in the 90s on 3 L nasal cannula. Continues on Zosyn. Afebrile, labs pending. telemetry sinus rhythm. 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 Denies lightheadedness dizziness or focal deficits. 03/05/2024 sitting up in chair,complains of right chest wall pain. Chest tubes to water suction, chest x-ray pending. telemetry sinus rhythm. Denies shortness of breath, maintaining O2 sats in the mid to high 90s on room air. Continues on Zosyn, afebrile, normal WBC. 03/06/2024 continues with 2 right sided chest tubes to waterseal, positive leak, complains of right chest wall pain. Chest x-ray pending. Denies shortness of breath, maintaining O2 sats in the mid 90s on room air .hemoglobin 8.4, platelets 405. afebrile, normal WBC. maintained on Zosyn, nebulized b ronchodilators. Hemoglobin 8.4, platelets 405. Renal function stable. Reports significant improvement on lactobacillus with his canker sores and is able to eat easier. 03/07/2024 anterior/medial chest tube discontinued. Posterior chest tube remains. right chest wall pain improved. Chest x-ray pending .sitting up in chair, denies chest pain, palpitations or increase in shortness of breath. Maintaining O2 sats in the mid 90s on room air. telemetry sinus rhythm. 03/08/2024 posterior chest tube remains, chest x-ray reporting right apical pneumothorax oh remains present post lobectomy, right sided chest tube present, stable appearance. Pain control improving. Denies chest pain or palpitations. Discussed pain management, IV push Dilaudid will be discontinued, will increase Clayton 10 tabs to 1-1/2 tablets every 4 hours as needed pain. Discharge planning in progress for tomorrow. Objective - Vital Signs Vital signs: Vital Signs Temp 98.1 F 03/08/24 08:44 Pulse 72 03/08/24 11:26 Resp 18 03/08/24 11:00 BP 102/57 03/08/24 11:00 Pulse Ox 97 03/08/24 11:00 FiO2 Intake & Output 03/07/24 03/08/24 03/08/24 18:59 06:59 18:59 Intake Total 1036 920 Output Total 910 1200 1180 Balance 126 -1200 -260 Weight 97.8 kg Intake: IV 20 Invasive Line 7 20 Oral 1036 900 Output: Chest Tube Drainage 10 0 5 Chest Tube Right 10 0 5 Posterior Chest right posterior medial 0 chest tube Urine 900 1200 1175 Other: Voiding Method Urinal Urinal # Bowel Movements 0 ABP, PAP, CO, CI - Last Documented Arterial Blood Pressure 105/65 - Exam General: Alert and oriented x 3, sitting up in chair,no acute distress.] HEENT: [Normocephalic, PERRL. EOMI. conjunctiva normal.MMM. Neck: Supple, no JVD Cardiac: regular rate and rhythm. No S3. No S4. No clicks, rubs. No murmur.] Lungs: Unlabored, equal air entry, occasional scattered rhonchi, right posterior chest tube to waterseal. Abdomen: Soft, nontender, nondistended, no organomegaly.+BS Extremes: No edema, no cyanosis no claudication normal pulses, wearing teds.] Skin: [Warm and dry, no rash noted.] Neurologic: CN II - XII grossly intact.] - Labs CBC & Chem 7: 03/06/24 06:50 03/06/24 06:50 Assessment and Plan Assessment: Acute hypoxic respiratory failure, positive groundglass changes bilaterally, chest x-ray reporting ongoing masslike right perihilar opacity measuring up to 3.7 cm. Redemonstrated air-fluid level within the inferior aspect of the opacity. Interstitial density in the left lung shows some improvement. status post diagnostic thoracic appendectomy, open thoracotomy, right middle lobe lobectomy, cryoablation of intercostal nerves VII through III, 02/29/2024. Recent lobectomy of right upper lung secondary to Squamous cell lung CA, discharged 02/12 Leukocytosis, resolved Right middle lobe atelectasis status post bronchoscopy 02/11/2024. Bronchial lavage cultures reporting negative. 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 Discharge planning in progress for a.m. CTS will convert chest tube over to Heimlich valve in a.m.pain management adjusted and will continue to monitor how patient tolerates. Increase ambulation as tolerated .Aggressive pulmonary toileting with incentive spirometer reinforced. The impression and plan of care has been dictated as directed. : I performed a history and examination of this patient, discussed the same with the dictator. I agree with the dictator's note ,documented as a scribe. Any additional findings or plans will be noted.
[2024-03-08] MEDS: HYDROcodone/APAP 10-325MG 1 EACH TAB PO PRN (15:25)
[2024-03-09 03:35] VITALS: TEMP 98.7
--- NOTE | 2024-03-09 06:32 | XR ---
EXAMINATION TYPE: XR chest 2V DATE OF EXAM: 03/09/2024 6:22 AM COMPARISON: None. CLINICAL INDICATION: Male, 63 years old with history of Post right upper and middle lobectomy, TECHNIQUE: XR chest 2V view(s) obtained. FINDINGS: The heart size is normal. The pulmonary vasculature is normal. Mild right lower lobe infiltrate is present. There is a right apical pneumothorax post lobectomy. Rig ht-sided chest tube remains in position.. IMPRESSION: 1. Stable 2 view chest. 2. Stable post lumpectomy right apex pneumothorax. Chest tube remains in position. 3. Mild infiltrate right lower lobe [facility] Heriberto Talbot, , 03/09/2024 6:29 AM
[2024-03-09 07:56] VITALS: RESP 16
--- NOTE | 2024-03-09 09:10 | P.PN ---
Subjective Progress Note Date: 03/09/24 Principal diagnosis: Recent right upper wedge resection/right upper lobectomy on February 09, 2024. 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 He also has a past medical history significant for paroxysmal atrial fibrillation on Eliquis for anticoagulation as an outpatient, COPD, obesity, tobacco dependence, quit smoking in December 2023, chronic back pain with chronic narcotic dependency as an outpatient, benign prostatic hypertrophy anxiety and depression. POD #9 diagnostic thoracoscopy, open thoracotomy, right middle lobectomy, cryoablation of intercostal nerves VII through III Prolonged airleak, somewhat expected given third right lung surgery. The patient was seen and examined in follow-up today March 09, 2024 at his bedside on the third floor cardiac stepdown unit. He is currently sitting up to the bedside chair, is awake, alert, oriented x 3 and is in no acute apparent distress. He has been weaned off the Dilaudid, and has been placed on [place]t 10 over 325 mg 1-1/2 tablets every 4 hours as needed pain managed by Dr. Mackey. He reports his pain is well-controlled at this time and contributes his pain to his chronic back pain. Right pleural chest tube remains in place to waterseal. Intermittent airleak is present with coughing and speaking. Draining scant thin serosanguineous drainage. 10 mL of output in the last 24 hours. Oxygen saturations are 96% on room air and he is achieving 2250 mL on his incentive spirometry with encouragement. He remains hemodynamically stable and is currently on no inotropic or pressor support. Discharge planning is in place. The patient has been ambulating in the cardiac stepdown unit hallway without difficulty. Chest x-ray results reviewed. Objective - Vital Signs Vital signs: Vital Signs Temp 98.7 F 03/09/24 07:56 Pulse 72 03/09/24 08:23 Resp 16 03/09/24 07:56 BP 109/63 03/09/24 07:56 Pulse Ox 98 03/09/24 07:56 FiO2 Intake & Output 03/08/24 03/09/24 03/09/24 18:59 06:59 18:59 Intake Total 1100 250 450 Output Total 1979 1410 275 Balance -880 -1160 175 Weight 95.8 kg Intake: IV 20 10 10 Invasive Line 7 20 Invasive Line 8 10 10 Oral 1080 240 440 Output: Chest Tube Drainage 5 10 0 Chest Tube Right 5 10 0 Posterior Chest Urine 1974 1400 275 Other: Voiding Method Urinal Urinal Urinal # Voids 1 # Bowel Movements 0 ABP, PAP, CO, CI - Last Documented Arterial Blood Pressure 105/65 - Exam CONSTITUTIONAL: Appears comfortable, cooperative, no acute distress RESPIRATORY: Lungs sounds diminished bilaterally. Respirations symmetrical, nonlabored. Currently on room air with oxygen saturation 95%. Able to achieve 2500 mL on incentive spirometry. Strong cough. CARDIOVASCULAR: S1, S2 present. Regular rate and rhythm, sinus rhythm on telemetry. Palpable peripheral pulses bilaterally. No edema present. No calf pain or tenderness noted. SCDs present. GASTROINTESTINAL: Abdomen soft, nontender, nondistended. Active bowel sounds present 4 quadrants. Tolerating diet. GENITOURINARY: Continues to void, 3375 mL in the last 24 hours. INTEGUMENTARY: Skin is warm and dry with no clubbing or cyanosis present. Right chest incisions well approximated and covered with dry intact dressing. NEUROLOGIC: Cranial nerves II through XII intact. No focal deficits. MUSKULOSKELETAL: Able to move all extremities, strength equal bilaterally. PSYCHIATRIC: Alert and oriented to person place and time, appropriate affect, intact judgment and insight INVASIVE LINES AND TUBES: Right pleural chest tube present to waterseal, air leak present with coughing. Right pleural chest tube with 10 mL in the last 24 hours. - Allied health notes Allied health notes reviewed: nursing - Labs CBC & Chem 7: 03/06/24 06:50 03/06/24 06:50 - Imaging and Cardiology Chest x-ray: report reviewed, image reviewed Assessment and Plan Assessment: Acute hypoxic respiratory failure secondary to acute infection in the right middle lobe Right midlung consolidation, right middle lobe syndrome with secondary pneumonia, status post bronchoscopy performed on 02/11/2024 and 02/22/24, atelectatic narrowed right middle lobe bronchus with evidence of bronchomalacia and anatomic distortion secondary to a previous right upper lobe resection, status post diagnostic thoracoscopy, open thoracotomy, right middle lobectomy, cryoablation of intercostal nerves VII through III Leukocytosis secondary to above Hyponatremia History of squamous cell carcinoma, status post wedge resection followed by completion right upper lobectomy Paroxysmal atrial fibrillation, on Eliquis as an outpatient, discontinued this admission Chronic obstructive pulmonary disease Chronic back pain on chronic narcotics History of tobacco dependence with recent cessation in December 2023 Benign prostatic hypertrophy Obesity Anxiety Depression Plan: Continue posterior chest tube to waterseal, if the patient will be discharged home we will transition to Heimlich valve or [place] dry seal Pleur-evac. We did discuss with the patient yesterday the option of going home with Heimlich valve until airleak resolves. Bronchodilators per pulmonology. Continue Mucinex. Encourage use of incentive spirometry 10 times every hour while awake. Continue to monitor daily chest x-rays. Pain control per current medication regimen, currently on H[place]t and Robaxin. Dilaudid has been discontinued. Continue metoprolol to tartrate with hold parameters. Increase activity, ambulate as tolerated. Encourage patient to ambulate in the hallway. GI/DVT prophylaxis. Medical management other comorbidities per primary care service. More recommendations to follow based on patient's clinical course. Time with Patient: Greater than 30
[2024-03-09 11:56] VITALS: BMI 30.3
[2024-03-09 12:33] VITALS: BP 115/64; PULSE 74
--- NOTE | 2024-03-09 13:39 | P.PN ---
Subjective Progress Note Date: 03/09/24 Principal diagnosis: Lung cancer. This is a very pleasant 63-year-old male patient with a known history of chronic and ongoing tobacco dependence of 48 years, chronic obstructive pulmonary disease, chronic back pain, atrial fibrillation. He also has a history of a solitary right upper lobe pulmonary nodule that was positive for squamous cell carcinoma based on a previous wedge resection in December 2023. He was brought back into the hospital for a robotically assisted right upper lobe lobectomy on February 09, 2024. During that hospitalization he was found to have a right middle lobe collapse and had undergone bronchoscopy with BAL. No endobronchial lesions or mucous was identified. He was discharged home on February 13, 2024. He was seen in the emergency department on February 17, 2024 for increasing shortness of breath cough and congestion. He was given azithromycin and discharged to home. He returned to the emergency room again the following day February 18, 2024 with similar symptoms that seem to be worsening. He had a hard time sleeping and was having right sided chest pain. Increased mucus. Chest x-ray shows similar findings of a large predominant right perihilar opacity. Stable small right apical hydropneumothorax. Small increasing right pleural effusion. White count 16.6. Hemoglobin 10.7. Platelets 552. Sodium 127. Potassium 5.1. Bicarb 24. BUN 20. Creatinine 0.98. Glucose 104. Viral screen negative. He is seen today in consultation on the regular medical floor. He is currently sitting up in bed. Awake and alert in no acute distress. He is quite weak. He is maintaining O2 saturations in the low 90s on room air. 02/20/2024, the patient is being seen for a follow-up. Patient is post right upper lobectomy for non-small cell lung cancer. 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 The patient has a persistent atelectasis/pneumonia of the right middle lobe. Currently, the patient is hospitalized for worsening shortness of breath. Procalcitonin level is 0.47. Electrolytes are all within normal range with a BUN of 15 and a creatinine of 0.9. The white cell count is at 15.4 with a hemoglobin of 10.4 and a platelet count of 406. The right upper lobe resection was done on 02/10/2024 and it is consistent with benign lung without any residual malignancy. The lymph nodes are also negative for malignancy. The patient is currently on IV Rocephin. The patient is also on Symbicort as maintenance 2 puffs twice a day and IV fluids with normal saline at rate of 75 cc an hour. He is receiving nebulized albuterol 4 times a day. He is oxygen requirements are at 6 L with a pulse ox of 99% On 02/21/2024, the patient is being seen for a follow-up. The patient is on 5 L of oxygen by nasal cannula and the patient is pulse oxing 91%. Continues to have a congested cough. The blood culture was negative. The sputum sample was negative. The patient's white cell count is at 14 with a hemoglobin 9.9 and a platelet count of 658. BUN is 15 with a creatinine of 0.8 and sodium levels at 134. Remains on Ventolin nebulized treatments, Symbicort maintenance and IV Rocephin. The plan is to repeat the patient's bronchoscopy in a.m. and to reevaluate the right middle lobe bronchus. The chest x-ray from today is essentially unchanged. There is a masslike opacity in the right hilum which is probably an atelectatic right middle lobe. On 02/22/2024, patient is being seen for a follow-up. Earlier this morning, the patient was having significant respiratory distress and cough and congestion. He has required higher oxygen flow at 5 L/min nasal cannula with a pulse ox of 95%. Based on that, a CAT scan of the chest was completed this morning without contrast and the CAT scan showed right upper lobectomy, a cavity was seen in the right suprahilar area with a atelectatic right middle lobe consistent with right middle lobe syndrome, /consolidation/groundglass changes and the patient also had some groundglass opacities in the left upper lobe. Airspace disease also seen in the right with an air-fluid level within the cavity. Small right-sided pleural effusion was noted based on those findings, a bronchoscopy was performed today and as expected, the patient had significant narrowing of the right middle lobe bronchus. There was evidence of bronchomalacia. I was able to pass the bronchoscope to the right middle lobe bronchus and visualize the right middle lobe and right lower lobe. Therapeutic airway suctioning was done. 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 Based on those findings, the patient was started on IV Zosyn and antibiotic modification was done. He seems to be much more comfortable post bronchoscopy. He has been placed on anticoagulation regarding paroxysmal atrial fibrillation. His current rhythm has remained sinus and the patient will be taken off the anticoagulation. The sodium levels at 133, BUN 13 with a creatinine 0.8. The white cell count from yesterday was at 14.4 with a hemoglobin 9.9. The procalcitonin level is at 0.47. On 02/23/2024, the patient is being seen for a follow-up. The patient is post bronchoscopy was done yesterday and please refer to the documented report. Repeat chest x-ray was also done today and the patient's findings are essentially stable. There is a right suprahilar opacity which remains essentially unchanged and area of atelectatic/infected right middle lobe. Meanwhile, the patient remains on IV Zosyn. The white cell count is down to 11.7. Hemoglobin is stable at 9.0 and the patient was taken off the anticoagulation. Electrolytes are stable. BUN is 12 with a creatinine of 0.8. Awaiting the results of the bronchial lavage. Oxygenation is also stable and the patient remains on 5 L of oxygen by nasal cannula with a pulse ox of 98%. He is sitting up to bedside chair. He is awake and alert. Denies having any pain. He does report some ongoing shortness of breath and a congested cough. He gets short of breath with activity. He is afebrile for now. On today's evaluation of 02/24/2024, the patient is feeling better. His oxygenation is improved and the patient is currently down to 3 L of oxygen nasal cannula with pulse ox of 94%. A follow-up chest x-ray from today shows essentially normal interval change and there is volume loss and right midlung atelectasis/consolidation in addition to a right apical pneumothorax. There is ongoing diffuse groundglass pulmonary filtrates and small right-sided pleural effusion. Bronchoscopy and bronchial lavage was done. Cultures are still pending for now. There is polymicrobial on the Gram stain including few gram- positive cocci and rare gram-negative bacilli. The patient remains on IV Zosyn. The patient remains on Symbicort and DuoNeb the regiment [id number]. The patient is on Symbicort. No issues with pain. Cough and congestion has subsided. Cardiac rhythm is a sinus. The white cell count is 11 with a hemoglobin of 9 and a platelet count of 640. Electrolytes are all within normal limits. BUN is 12 with a creatinine 0.8. On 02/25/2024, the patient is feeling better. Less short of breath. Less bronchospastic and wheezy. He has been weaned down to 2 L of oxygen by nasal cannula. Bronchoscopy endobronchial lavage is not yielded any microbial growth. The patient has responded nicely to IV Zosyn. DuoNeb nebulized treatments [id number]. Cough and congestion has subsided significantly. Repeat chest x-ray was done today and essentially there is no significant interval change. Small right-sided pleural effusion is seen. On today's evaluation of 02/26/2024, the patient is feeling better. Cough and congestion has subsided significantly. Cultures from the bronchioloalveolar lavage has been negative. The patient remains on IV Zosyn. He is currently on oxygen at 2 L/min nasal cannula. He remains on bronchodilators and steroids. Labs show a white cell count of 7.7 with a hemoglobin 9 and a platelet count of 710. Electrolytes are all within normal limits. Troponins are negative. The patient is seen today February 27, 2024 in follow-up on the regular medical floor. He is currently sitting up in a chair at the bedside. Awake and alert in no acute distress. He is maintaining O2 saturations in the 90s on 2 L/min per nasal cannula. He is afebrile. Hemodynamically stable. Chest x-ray continues to show ongoing masslike right perihilar opacity measuring up to 3.7 cm. Redemonstrated air-fluid level within the inferior aspect of the opacity. This is mostly the right middle lobe volume loss. Sputum and blood cultures revealed no growth. Bronchial wash cultures revealed no growth. White count 12.6. Hemoglobin 9.1. Platelets 696. Sodium 137. Potassium 4.5. Bicarb 27. BUN 10. Creatinine 0.8. Glucose 166. He remains on DuoNeb inhalations, Symbicort, Solu-Medrol. Antibiotics in the form of Zosyn. Heparin for DVT pr ophylaxis. The patient is seen today February 28, 2024 in follow-up on the regular medical floor. He is currently awake and alert in no acute distress. Sitting up in a chair at the bedside. Maintaining good O2 saturations in the 90s on 2 L/min per nasal cannula. He has been afebrile. Hemodynamically stable. Bronchial wash cultures from 02/22/2024 revealed no growth. Blood cultures revealed no growth. Sputum culture revealed no growth. He remains on DuoNeb inhalations, Symbicort, Mucinex. Antibiotics in the form of Zosyn. Patient was seen today on 03/20, patient is doing well, relatively asymptomatic, scheduled for right middle lobectomy sometime later today. In the meantime the patient is doing well, no cough no wheezing no shortness of breath, remains on Zosyn. Remains on bronchodilators. WBC count today is 11.7 hemoglobin 10.2 electrolytes are normal renal profile is normal Seen today on 03/01/2024, patient is doing well, underwent diagnostic thoracoscopy open thoracotomy right middle lobectomy cryoablation of intercostal nerves VII through III patient is now in the ICU, sitting at the bedside chair, does not seem to be in any distress, on 3 L nasal cannula achieving 1250 cc on his incentive spirometry. Patient is hemodynamically stable, not on any pressors not requiring any inotropes. Medial and posterior right-sided chest tubes noted patient continues to have right apical pneumothorax and has continuous air leak noted.WBC count is 17.2 hemoglobin is 9.5 electrolytes are normal renal profile is normal Patient was seen today on 03/02/2024, patient is now postoperative day #2, seems to be doing fairly well.POD #2 diagnostic thoracoscopy, open thoracotomy, right middle lobectomy, cryoablation of intercostal nerves VII through III patient is sitting at the bedside chair, does not seem to be in any distress, remains on Zosyn remains on bronchodilators remains on 3 L nasal cannula achieving about 1500 cc on his incentive spirometry he is hemodynamically stable, airleak noted intermittently in both chest tubes continues to have right-sided pneumothorax. Currently however the patient is doing better than expected Seen today on 03/03/2024, patient is now postoperative day #3 patient is sitting at the bedside recliner, does not seem to be in any distress, denies shortness of breath, he does have some pain but seems to be fairly well-controlled at the surgical site/chest wall pain. Patient is receiving Dilaudid IV push his Dilaudid SQL TECH pump has been discontinued. My on Zosyn remains on bronchodilators, continues to have air leak in the chest tubes, and continues to have right apical pneumothorax. WBC count is 11 hemoglobin is 8.7 electrolytes are normal renal profile is normal dramatic improvement in his WBC count for the first time is noted, was as high as 20.2 yesterday Patient was seen today on 11/18, basically much better today, feeling better breathing easier he is now postoperative day #4 continues to have pneumothorax on the right side continues to have air leak but clinically the patient is feeling great. Both chest tubes remain in place on the right side. Continues to have air leak. WBC count is 7.1 hemoglobin 8.4 electrolytes are normal renal profile is normal Progress note dated March 05, 2024. 63-year-old male well-known to me. The patient was initially seen for a nodule/mass, in the right upper lobe. The patient had a wedge resection performed by Dr. Winston, and subsequent to that, had a completion right upper lobectomy. After that procedure, the patient had chronic collapse of the right middle lobe, and the patient was readmitted with a diagnosis of chronic collapse, and underwent a right middle lobectomy, by Dr. Winston. He is postoperative day #5. He is currently on room air. No IV fluids. He is feeling well. He is sitting up in a chair, in no distress. He continues to use the incentive spirometer. Current labs are reviewed. White count 4.9, hemoglobin 8.2, hematocrit 26.1, platelet count normal. Sodium 135, potassium 4, chlorides 102, CO2 30 BUN 8, creatinine 0.95. Glucose is 85. Calcium is 7.5. Chest x-ray shows a right apical pneumothorax, and some infiltrate at the right lung base. Progress note dated March 06, 2024. 63-year-old male well-known to me. The patient is status post right middle lobectomy. He initially had a wedge resection of the right upper lobe lesion, which turned out to be non-small cell lung cancer. The patient then had a robotically assisted completion right upper lobectomy. After that procedure, the patient had collapse of the right middle lobe, which would not reexpand. Hence, the most recent surgery. He is sitting in the chair, next to the hospital bed. He is in no distress. He is on room air. He is getting saline at 10 cc an hour. 2 chest tubes remain on the right side. Patient does have a leak. White count 5.2, hemoglobin 8.4, hematocrit 26.5, platelet count 405,000. Sodium 133, potassium 3.9, chlorides 102, CO2 29, BUN 7, and creatinine 1.01. Calcium 7.8. Chest x-ray shows a right upper lobe pneumothorax. Progress note dated 03/07/2024. 63-year-old male seen today in room 357. The patient is status post right middle lobectomy. He initially had a wedge resection of the right upper lobe for lung cancer, and the subsequent to that, had a completion right upper lobectomy. Currently, he is resting, 50 cm on room air. Getting saline at 10 cc an hour. 1 chest tube has been removed. He has a leak from the subsequent chest tube. Chest x-ray shows a small right apical pneumothorax. No new labs today. X-rays are reviewed. Clinically stable without any complaints. He continues working on his incentive spirometer, and his flutter valve. Progress note dated March 08, 2024. 63-year-old male seen today in room 357. This patient is status post right middle lobectomy. He is on room air. No IV fluids. Chest x-ray shows a small right apical pneumothorax, which is unchanged. 1 chest tube remains. There is a leak. Clinically, he feels well. The patient is sitting in a chair next to his hospital bed. No new labs today. Chest x-ray today is stable and is essentially unchanged. Progress note dated March 09, 2024. 63-year-old male seen today in room 357. The patient is status post right middle lobectomy. He is currently on room air. He is sitting in the chair next to the hospital bed. He is not receiving any IV fluids. 1 chest tube remains. Chest x-ray shows a right apical pneumothorax. Objective - Vital Signs Vital signs: Vital Signs Temp 98.7 F 03/09/24 07:56 Pulse 74 03/09/24 12:33 Resp 16 03/09/24 12:33 BP 115/64 03/09/24 12:33 Pulse Ox 96 03/09/24 12:33 FiO2 Intake & Output 1203/09/24 03/09/24 18:59 06:59 18:59 Intake Total 1100 250 690 Output Total 1979 1410 1025 Balance -880 -1160 -335 Weight 95.8 kg 95.8 kg Intake: IV 20 10 10 Invasive Line 7 20 Invasive Line 8 10 10 Oral 1080 240 680 Output: Chest Tube Drainage 5 10 0 Chest Tube Right 5 10 0 Posterior Chest Urine 1974 1400 1025 Other: Voiding Method Urinal Urinal Urinal # Voids 1 # Bowel Movements 0 ABP, PAP, CO, CI - Last Documented Arterial Blood Pressure 105/65 - Exam No acute distress, oriented 3. HEENT examination is grossly unremarkable. Mucous membranes are moist. No oral lesions. Neck supple. Full range of motion. No adenopathy thyromegaly or neck vein distention. Cardiovascular examination reveals regular rhythm rate. S1-S2 normal. No S3 or S4. No discernible murmur noted. Lungs reveal bilateral rhonchi. No wheezes or crackles. Breath sounds equal. Abdomen soft bowel sounds are heard. No masses or tenderness. Extremities are intact. No cyanosis or clubbing. Minimal edema. Skin is without rash or lesion. Neurologic examination is brief but nonfocal. - Labs CBC & Chem 7: 03/06/24 06:50 03/06/24 06:50 Assessment and Plan Assessment: Postoperative day #9, status post right middle lobectomy, and cryoablation of intercostal nerves. Acute hypoxemic respiratory failure. Previous wedge resection of right upper lobe, followed by a robotically assisted right upper lobectomy. Stage I bronchogenic carcinoma, squamous cell, T1b, N0 M0. Atrial fibrillation with RVR. Persistently collapsed right middle lobe. Chronic and ongoing tobacco dependence of 48 years. History of COPD. History of chronic back pain. Plan: Plan dated March 05, 2024. The patient is seen today in room 357. He sitting in the chair next to the hospital bed. He appears to be relatively comfortable. Labs, x-rays, and medications are reviewed. We will continue to follow the patient, make recommendations along the way. Right sided chest tubes remain in place. The patient initially had a wedge resection of right upper lobe, for an early stage non-small cell lung cancer, and then had a completion right upper lobectomy. Subsequent to that, the patient had a nonexpanding right middle lobe, and despite bronchoscopy, required right middle lobectomy. We will continue to follow make recommendations along the way. Prognosis is guarded. Plan dated March 06, 2024. The patient is doing relatively well. He has been very patient. The patient is currently on room air. He is getting saline at 10 cc an hour. 2 right-sided chest tubes remain. Chest x-ray shows a right sided pneumothorax. It is apically situated. The patient does have a leak. Labs, x-rays, and all medications are reviewed. We will continue to follow patient, make recommendations. We recommend deep breathing, coughing, clearing of secretions, and use of the incentive spirometer. Plan dated March 07, 2024. The patient is doing better. 1 chest tube has been removed. He has a leak in the remaining chest tube. He continues with his incentive spirometer and his flutter valve. Labs, x-rays, and medications are reviewed. He seems to be in good spirits. He sitting in the chair next to the hospital bed. Family members are in the room. We will continue to follow the patient, make recommendations along the way. Plan dated March 08, 2024. The patient is seen today in room 357. He is clinically stable. He is on room air. No IV fluids. 1 chest tube remains in on the right side. There is a leak. Chest x-ray shows right apical pneumothorax, unchanged. Labs, x-rays, and all medications are reviewed. We will continue to follow. We recommend daily chest x-rays, continue use of the incentive spirometer, deep breathing, coughing, clearing of secretions. Prognosis is guarded. Plan dated March 09, 2024. The patient is doing well. The patient is not requiring any supplemental oxygen. The patient is not receiving any IV fluids. Chest x-ray reveals a small right apical pneumothorax. There is still a leak from the remaining chest tube on the right side. Labs, x-rays, medications are reviewed. The patient mentions that he may end up going home with a Heimlich valve connected to the chest tube. I have asked him to call the office and make an appointment to see me sometime mid next week in the morning. Time with Patient: Less than 30
--- NOTE | 2024-03-09 18:38 | P.DS ---
Providers Date of admission: 02/18/24 18:57 Expected date of discharge: 03/09/24 Attending physician: Rajan Mackey Consults: 02/18/24 18:38 Consult Physician Routine Consulting Provider: Pierce Lynn Consult Reason/Comments: Pneumonia, lung mass Do you want consulting provider notified?: Yes 02/18/24 18:39 Consult Physician Routine Consulting Provider: Yossi Laureano Consult Reason/Comments: lung mass Do you want consulting provider notified?: Yes 02/20/24 08:35 Consult Physician Routine Consulting Provider: Pantera Winston Consult Reason/Comments: Recent wedge/RUL lobectomy, admitted with PNA Do you want consulting provider notified?: Yes Primary care physician: [facility] Course: Final Diagnosis: Acute hypoxic respiratory failure, positive groundglass changes bilaterally, chest x-ray reporting ongoing masslike right perihilar opacity measuring up to 3.7 cm. Redemonstrated air-fluid level within the inferior aspect of the opacity. Interstitial density in the left lung shows some improvement. status post diagnostic thoracic appendectomy, open thoracotomy, right middle lobe lobectomy, cryoablation of intercostal nerves VII through III, 02/29/2024. Recent lobectomy of right upper lung secondary to Squamous cell lung CA, discharged 02/12 Leukocytosis, resolved Right middle lobe atelectasis status post bronchoscopy 02/11/2024. Bronchial lavage cultures reporting negative. 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 He had underwent a mediastinal lymph node dissection and wedge resection of the lung on December 27, 2023. He returned back and February 08 for a right upper lobe lobectomy. While here he had collapse of the right middle lung and underwent a bronchoscopy and bronc and BAL. He developed a complication of paroxysmal atrial fibrillation during his stay. He did improve and was sent home in stable condition. He returned emergency room on 1122 with shortness of breath and cough was sent home. He returned again on 02/18/2024 with worsening symptoms. Found to have a leukocytosis coughing and not feeling well. Also complaining of left-sided chest pain and right-sided chest pain at his surgical site. This morning he isb in sinus rhythm per telemetry heart rates controlled in the 80s O2 saturation 93% on room air. Laboratory studies now show a leukocytosis 16 6 hemoglobin 10.7 and a left shift with the neutrophils at 14,600. Blood chemistries do show a hyponatremia with a sodium 127 chloride 95, calcium is 7.9. Total protein is 6.2 with a albumin of 3.2. 02/20/2024: Brian was reevaluated for his right middle lobe pneumonia. Vital signs show he is afebrile heart rate and respiratory rate blood pressure control. He is on 6 L of O2 via nasal cannula. WBC count is improved now 15.4, hemoglobin 10.4 neutrophils are 14.23, chemistries show sodium 133. Sputum and blood cultures pending. 02/21/2024: Parents feeling slightly better today. He is being treated for his right middle lobe pneumonia. His regular lobe and collapsed after his right upper lobe surgical assisted lobectomy. He remains on ceftriaxone and azithromycin for antibiotics apixaban for anticoagulation acetylcysteine and guaifenesin for mucus production. He is on Symbicort and Atrovent for inhalation therapy at this time. 02/22/2024: Patient could not be seen today as he was down for his bronchoscopy. Labs and chart are reviewed today. Patient remains on Zosyn. He has Eliquis for anticoagulation. He has DuoNeb updrafts or shortness of breath is on Mucomyst and Symbicort. 02/23/2024 patient awake alert oriented 3 complains of chest pain dyspnea 02/24/2024 patient awake alert oriented 3 complains of chest pain dyspnea, status post lung resection 02/25/2024 Patient awake alert oriented 3 vital signs are stable patient is afebrile, patient has been complaining of intermittent chest discomfort, EKG no acute changes' 02/26/2024 Patient awake alert oriented 3 vital signs are stable patient is currently afebrile, no new chest pain today 02/27/24 continues on Zosyn, nebulized bronchodilators, afebrile, WBC 12.66. , Bronch ,sputum and blood cultures reporting negative.ambulated in the hallway earlier this morning, tolerated exertion well. Currently sitting up in chair, maintaining O2 sats in the mid 90s on 2 L nasal cannula. Chest x-ray reporting ongoing masslike right perihilar opacity measuring up to 3.7 cm. Redemonstrated air-fluid level within the inferior aspect of the opacity. Interstitial density in the left lung shows some improvement. Reports chest pain with coughing , receiving Astoria scheduled and Dilaudid prn.CTS consulted, recommendations pending. Hemoglobin 9.1, platelets 696 .renal function stable. 02/28/2024 evaluated by CTS and patient is scheduled for right mid lobe lobectomy tomorrow. Complains of left upper molar caries with fracture, Peridex mouthwash ordered. Afebrile, maintained on Zosyn, nebulized bronchodilators, Symbicort and Mucinex. O2 sats in the 90s on 2 L nasal cannula. 02/29/2024 NPO, sitting up in chair, right middle lobe lobectomy scheduled for early this afternoon. Denies chest pain, palpitations or shortness of breath. Maintaining O2 sats in the mid to high 90s on 2 L nasal cannula. continues on Zosyn, afebrile, WBC 11.7, hemoglobin 10.2, renal function and electrolytes within normal limits. 03/01/2024 status post diagnostic thoracic appendectomy, open thoracotomy, right middle lobe lobectomy, cryoablation of intercostal nerves VII through III, postop day #1. Significant pain throughout the night, Astoria was added to pain med regime in addition to Dilaudid [employer] with better control currently. Microbiology negative, continues on Zosyn, afebrile, WBC decreased to 17.2. Hemoglobin 9.5, platelets 473, sodium 131, renal function stable, blood sugars controlled, calcium 7.4. Blood pressure soft, mean arterial pressures in the 70s, beta-daniele held. Chest x-ray reporting decreasing size of right apical pneumothorax currently 4.6 cm versus 5.8 cm previously, [address] Similar postsurgical change right hilum with corresponding volume loss right hemothorax following lobectomy. Ongoing diffuse interstitial opacities, possible interstitial pulmonary edema. Maintaining O2 sats in the 90s on 3 L nasal cannula. Denies shortness of breath. 03/02/2024 transferred out of ICU to stepdown unit yesterday. Denies shortness of breath. Maintaining O2 sats in the 90s on 3 L nasal cannula. Continues on Zosyn. Afebrile, labs pending. telemetry sinus rhythm. Reporting right chest wall pain; currently on Dilaudid [employer] as well as Astoria's as per cardiothoracic surgery. Denies lightheadedness dizziness or focal deficits. 03/05/2024 sitting up in chair,complains of right chest wall pain. Chest tubes to water suction, chest x-ray pending. telemetry sinus rhythm. Denies shortness of breath, maintaining O2 sats in the mid to high 90s on room air. Continues on Zosyn, afebrile, normal WBC. 03/06/2024 continues with 2 right sided chest tubes to waterseal, positive leak, complains of right chest wall pain. Chest x-ray pending. Denies shortness of breath, maintaining O2 sats in the mid 90s on room air .hemoglobin 8.4, platelets 405. afebrile, normal WBC. maintained on Zosyn, nebulized bronchodilators. Hemoglobin 8.4, platelets 405. Renal function stable. Reports significant improvement on lactobacillus with his canker sores and is able to eat easier. 03/07/2024 anterior/medial chest tube discontinued. Posterior chest tube remains. right chest wall pain improved. Chest x-ray pending .sitting up in chair, denies chest pain, palpitations or increase in shortness of breath. Maintaining O2 sats in the mid 90s on room air. telemetry sinus rhythm. 03/08/2024 posterior chest tube remains, chest x-ray reporting right apical pneumothorax oh remains present post lobectomy, right sided chest tube present, stable appearance. Pain control improving. Denies chest pain or palpitations. Discussed pain management, IV push Dilaudid will be discontinued, will increase Astoria 10 tabs to 1-1/2 tablets every 4 hours as needed pain. Discharge planning in progress for tomorrow. Discharge planning in progress for a.m. CTS will convert chest tube over to Heimlich valve in a.m.pain management adjusted and will continue to monitor how patient tolerates. Increase ambulation as tolerated .Aggressive pulmonary toileting with incentive spirometer reinforced. 03/09/2024 patient reports he did well with pain management on his Astoria and is eager for discharge. Denies chest pain, palpitations or increased shortness of breath. Denies lightheadedness, dizziness or focal deficits. Ambulating, tolerating exertion well. Maintaining O2 sats in the high 90s on room air. Patient will be discharged home today pending CTS converting chest tube over Heimlich valve, final DC recommendations and clearance per CTS. patient will be discharged home today in a stable condition with guarded prognosis. The impression and plan of care has been dictated as directed. : I performed a history and examination of this patient, discussed the same with the dictator. I agree with the dictator's note ,documented as a scribe. Any additional findings or plans will be noted. Patient Condition at Discharge: Stable Plan - Discharge Summary Discharge Rx Participant: Yes New Discharge Prescriptions: New Chlorhexidine Gluconate [Peridex] 15 ml MUCOUS MEM BID ml Lactobacillus Acidophilus [Acidophilus Probiotic] 1 each PO DAILY #30 capsule Folic Acid 1 mg PO DAILY tab Ferrous Sulfate [Iron (65 MG Elemental)] 325 mg PO BID-W/MEALS tab polyethylene glycoL 3350 [Miralax] 17 gm PO DAILY #1 packet Sennosides-Docusate Sodium [Senokot-S] 1 each PO BID tab Ascorbic Acid [Vitamin C] 500 mg PO BID-W/MEALS tab Budesonide-Formot 160-4.5 Mcg [Symbicort 160-4.5 Mcg Inhaler] 2 puff INHALATION RT-BID #1 each Continue buPROPion XL [Wellbutrin XL] 150 mg PO DAILY Glycopyrrolate/Formoterol Fum [Bevespi Aerosphere Inhaler] 1 puff INHALATION RT-BID PRN PRN Reason: Shortness Of Breath ARIPiprazole [Abilify] 2.5 mg PO HS Tamsulosin [Flomax] 0.4 mg PO DAILY Aspirin 81 mg PO DAILY #30 tab Apixaban [Eliquis] 5 mg PO BID #60 tab Pantoprazole [Protonix] 40 mg PO AC-BRKFST #30 tab Metoprolol Tartrate [Lopressor] 12.5 mg PO BID Changed HYDROcodone/APAP 10-325MG [Astoria 10-325] 1.5 tab PO Q6H PRN #0 PRN Reason: Pain Discontinued Azithromycin [Zithromax Z Pack] See Taper PO DAILY Amiodarone [Cordarone] See Taper PO BID Discharge Medication List buPROPion XL [Wellbutrin XL] 150 mg PO DAILY 07/06/22 [History] Glycopyrrolate/Formoterol Fum [Bevespi Aerosphere Inhaler] 1 puff INHALATION RT- BID PRN 12/21/23 [History] ARIPiprazole [Abilify] 2.5 mg PO HS 02/07/24 [History] Tamsulosin [Flomax] 0.4 mg PO DAILY 02/09/24 [History] Apixaban [Eliquis] 5 mg PO BID #60 tab 02/13/24 [Rx] Aspirin 81 mg PO DAILY #30 tab 02/13/24 [Rx] Pantoprazole [Protonix] 40 mg PO AC-BRKFST #30 tab 02/13/24 [Rx] Metoprolol Tartrate [Lopressor] 12.5 mg PO BID 02/18/24 [History] Ascorbic Acid [Vitamin C] 500 mg PO BID-W/MEALS tab 03/09/24 [Rx] Budesonide-Formot 160-4.5 Mcg [Symbicort 160-4.5 Mcg Inhaler] 2 puff INHALATION RT-BID #1 each 03/09/24 [Rx] Chlorhexidine Gluconate [Peridex] 15 ml MUCOUS MEM BID ml 03/09/24 [Rx] Ferrous Sulfate [Iron (65 MG Elemental)] 325 mg PO BID-W/MEALS tab 03/09/24 [Rx] Folic Acid 1 mg PO DAILY tab 03/09/24 [Rx] HYDROcodone/APAP 10-325MG [Astoria 10-325] 1.5 tab PO Q6H PRN #0 03/09/24 [Rx] Lactobacillus Acidophilus [Acidophilus Probiotic] 1 each PO DAILY #30 capsule 03/09/24 [Rx] Sennosides-Docusate Sodium [Senokot-S] 1 each PO BID tab 03/09/24 [Rx] polyethylene glycoL 3350 [Miralax] 17 gm PO DAILY #1 packet 03/09/24 [Rx] Follow up Appointment(s)/Referral(s): Elvis Hoffmann Jr, DO [Primary Care Provider] - 3 Days (Please call to schedule follow up appoitment) Pantera Winston MD [STAFF PHYSICIAN] - 03/15/24 2:00 pm Ambulatory/Diagnostic Orders: XR chest 2V [RAD.AMB] Time Frame: 03/15/24, Facility: [facility], Location: [facility] Patient Instructions/Handouts: How to Care for Your Chest or Abdominal Catheter (GEN), Chest Tubes (GEN) Discharge Disposition: HOME WITH HOME HEALTH SERVICES
== END 2024-03-09 16:50 | disposition home health service (06) | DRG 163 ==
LOC: EC 15:09 → 4SSUR 18:57 → 3SCARD 02-28 20:19 → 2SICU 02-29 17:47 → 3SCARD 03-01 18:24
PROVIDERS: ADMIT Family Medicine; ATTEND Family Medicine
PROC: 0B9D8ZX Drainage of Right Middle Lung Lobe, Via Natural or Artificial Opening Endoscopic, Diagnostic (ICD-10-PCS; principal; 2024-02-22 07:30)
PROC: 0BTD0ZZ Resection of Right Middle Lung Lobe, Open Approach (ICD-10-PCS; 2024-02-29)
PROC: 01580ZZ Destruction of Thoracic Nerve, Open Approach (ICD-10-PCS; 2024-02-29)
PROC: 8E0W0CZ Robotic Assisted Procedure of Trunk Region, Open Approach (ICD-10-PCS; 2024-02-29)
DX: B37.1 Pulmonary candidiasis (principal); J15.9 Unspecified bacterial pneumonia; J96.01 Acute respiratory failure with hypoxia; C34.11 Malignant neoplasm of upper lobe, right bronchus or lung; J95.811 Postprocedural pneumothorax; J44.0 Chronic obstructive pulmonary disease with (acute) lower respiratory infection; E87.1 Hypo-osmolality and hyponatremia; J94.2 Hemothorax; F33.1 Major depressive disorder, recurrent, moderate; J91.8 Pleural effusion in other conditions classified elsewhere; J95.812 Postprocedural air leak; J98.11 Atelectasis; J94.8 Other specified pleural conditions; J98.09 Other diseases of bronchus, not elsewhere classified; I48.0 Paroxysmal atrial fibrillation; E66.9 Obesity, unspecified; Z68.32 Body mass index [BMI] 32.0-32.9, adult; D63.0 Anemia in neoplastic disease; J98.4 Other disorders of lung; G89.29 Other chronic pain; F17.210 Nicotine dependence, cigarettes, uncomplicated; F41.9 Anxiety disorder, unspecified; D75.839 Thrombocytosis, unspecified; D72.828 Other elevated white blood cell count; N40.0 Benign prostatic hyperplasia without lower urinary tract symptoms; K02.9 Dental caries, unspecified; E53.8 Deficiency of other specified B group vitamins; K12.0 Recurrent oral aphthae; Z90.2 Acquired absence of lung [part of]; Z79.01 Long term (current) use of anticoagulants; Z79.82 Long term (current) use of aspirin; Z79.899 Other long term (current) drug therapy; Z79.891 Long term (current) use of opiate analgesic
CPT/HCPCS: 31624; 31645; 36415; 36430; 71045; 71046; 71250; 80048; 80053; 82607; 82728; 82746; 83540; 83550; 83605; 83735; 83921; 84145; 84484; 85025; 85027; 85610; 85730; 86850; 86900; 86901; 86920; 87040; 87070; 87102; 87205; 87449; 87496; 87498; 87502; 87529; 87634; 87635; 87798; 88309; 89050; 93005; 94640; 94664; 94667; 94668; 94760; 96361; 96374; 96375; 96376; 99285

== ENCOUNTER → 2024-03-26 | Outpatient (CLI) | payer MEDICARE, OTHER ==
--- NOTE | 2024-03-26 14:40 | XR ---
EXAMINATION TYPE: XR chest 2V DATE OF EXAM: 03/26/2024 1:04 PM COMPARISON: 03/09/2024 CLINICAL INDICATION: Male, 63 years old with history of J93.0 SPONTANEOUS TENSION PNEUMOTHORAX, prior thorax TECHNIQUE: XR chest 2V view(s) obtained. FINDINGS: The heart size is normal. The pulmonary vasculature is normal. There is a right apical pneumothorax, stable post lumpectomy. Air-fluid level is within the right hil ar region may be in the anterior collection. The chest tube has been removed. Left lung appears clear . Other shift of the trachea towards the right. IMPRESSION: 1. Chronic appearing right apical pneumothorax post lobectomy. Air-fluid level may be in the anterior superior hilar region related to the thorax. [facility], , 03/26/2024 2:38 PM
== END | disposition home or self-care (01) ==
LOC: RADXRMAIN 12:34
PROVIDERS: ATTEND Thoracic Surgery (Cardiothoracic Vascular Surgery)
DX: J93.0 Spontaneous tension pneumothorax (principal)
CPT/HCPCS: 71046

== ENCOUNTER → 2024-04-02 | Outpatient (CLI) | payer MEDICARE, OTHER ==
[2024-04-02 15:52] LABS: ALT 12 U/L (10-49); AST 14 U/L (14-35); Albumin 3.8 g/dL (3.8-4.9); Alkaline Phosphatase 131 U/L (41-126); BUN/Creat Ratio 10.11 Ratio (12.00-20.00); Blood Urea Nitrogen 9.1 mg/dL (9.0-27.0); Calcium 9.5 mg/dL (8.7-10.3); Carbon Dioxide 27.3 mmol/L (21.6-31.8); Chloride 99 mmol/L (96-109); Chol/HDL Ratio 3.64 Ratio; Globulin 3.8 g/dL (1.6-3.3); Glucose 94 mg/dL (70-110); LDL Cholesterol,Calculated 120.4 mg/dL (0.0-131.0); Potassium 4.9 mmol/L (3.5-5.5); Sodium 138 mmol/L (135-145); T4, Free (Free Thyroxine) 1.25 ng/dL (0.80-1.80); Total Bilirubin 0.2 mg/dL (0.3-1.2); Total Protein 7.6 g/dL (6.2-8.2); VLDL Calculation 18.78 mg/dL (5.00-40.00)
[2024-04-02 16:00] LABS: HGB 11.9 g/dL (13.0-17.0); MCH 25.6 pg (27.0-32.0); MCV 88.2 FL (80.0-97.0); Mean Platelet Volume 9.1 FL (9.5-12.2); NRBC Per 100 WBC 0 X 10*3/uL (0.00-0.01); Platelet Count 500 X 10*3/uL (140-440); RBC 4.65 X 10*6/uL (4.40-5.60); RDW 14.6 % (11.5-14.5); WBC 10.14 X 10*3/uL (4.50-10.00)
[2024-04-02 16:01] LABS: Basophils # (A) 0.04 X 10*3/uL (0.00-0.10); Basophils % (A) 0.4 %; Eosinophils # (A) 0.05 X 10*3/uL (0.04-0.35); Eosinophils % (A) 0.5 %; Lymphocytes % (A) 27.6 %; Monocytes # (A) 0.56 X 10*3/uL (0.20-1.00); Monocytes % (A) 5.5 %; Neutrophils # (A) 6.62 X 10*3/uL (1.80-7.70); Neutrophils % (A) 65.3 %
== END | disposition home or self-care (01) ==
LOC: LABWHC1 08:44
PROVIDERS: ATTEND Family Medicine
DX: Z00.00 Encounter for general adult medical examination without abnormal findings (principal); N40.1 Benign prostatic hyperplasia with lower urinary tract symptoms; Z79.899 Other long term (current) drug therapy
CPT/HCPCS: 84439; 80061; 80053; 84443; 85025; 36415; G0103

== ENCOUNTER 2024-05-16 13:14 | Emergency (ER) | payer MEDICARE, OTHER ==
[2024-05-16 13:25] VITALS: RESP 20
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
[2024-05-16 13:54] LABS: Anisocytosis Slight; Basophils # (A) 0.1 k/uL (0-0.2); Basophils % (A) 0 %; Eosinophils # (A) 0.3 k/uL (0-0.7); Eosinophils % (A) 2 %; HCT 41.5 % (39.0-53.0); HGB 13.3 gm/dL (13.0-17.5); Hypochromasia Slight; Lymphocytes # (A) 1.6 k/uL (1.0-4.8); Lymphocytes % (A) 11 %; MCH 26.4 pg (25.0-35.0); MCHC 32.1 g/dL (31.0-37.0); MCV 82.4 fL (80.0-100.0); Mean Platelet Volume 6.9; Monocytes # (A) 0.5 k/uL (0-1.0); Monocytes % (A) 3 %; Neutrophils # (A) 11.6 k/uL (1.3-7.7); Neutrophils % (A) 82 %; Platelet Count 233 k/uL (150-450); RBC 5.03 m/uL (4.30-5.90); RDW 16.1 % (11.5-15.5); WBC 14.2 k/uL (3.8-10.6)
[2024-05-16 14:03] LABS: Partial Thromboplastin Time 25.1 sec (22.0-30.0); Prothrombin Time 10.7 sec (10.0-12.5)
[2024-05-16 14:18] LABS: ALT 16 U/L (4-49); AST 17 U/L (17-59); African American GFR (CKD) >90 (>60 ml/min/1.73 sqM); Albumin 4.4 g/dL (3.5-5.0); Alkaline Phosphatase 104 U/L (38-126); Anion Gap 11 mmol/L; Blood Urea Nitrogen 13 mg/dL (9-20); Calcium 9.2 mg/dL (8.4-10.2); Carbon Dioxide 25 mmol/L (22-30); Chloride 100 mmol/L (98-107); Glucose 116 mg/dL (74-99); Non-African American GFR(CKD) >90 (>60 ml/min/1.73 sqM); Potassium 4.2 mmol/L (3.5-5.1); Sodium 136 mmol/L (137-145); Total Bilirubin 0.9 mg/dL (0.2-1.3); Total Protein 7.5 g/dL (6.3-8.2)
--- NOTE | 2024-05-16 15:33 | XR ---
EXAMINATION TYPE: XR chest 2V DATE OF EXAM: 05/16/2024 3:28 PM COMPARISON: Chest radiographs from 04/06/2024 TECHNIQUE: XR chest 2V Frontal and lateral views of the chest. CLINICAL INDICATION:Male, 63 years old with history of sob; FINDINGS: Lungs/Pleura: Stable right-sided apical pneumothorax with right-sided volume loss and right-sided lob ectomy. Similar right hilar superior retraction. Left lung is clear. No pleural effusion. Pulmonary vascularity: Unremarkable. Heart/mediastinum: Cardiomediastinal silhouette is unremarkable. Musculoskeletal: Multiple level degenerative disc disease changes seen throughout the spine. IMPRESSION: Posttreatment changes to the right lung redemonstrated. No new acute pulmonary process. [facility], , 05/16/2024 3:31 PM
[2024-05-16 17:03] LABS: Influenza A Not Detected (Not Detectd); Influenza B Not Detected (Not Detectd); RSV Not Detected (Not Detectd)
[2024-05-16] MEDS: MORPHINE SULFATE 4 MG/ML SYRINGE IVP STA ×2 (17:11→18:47)
[2024-05-16] MEDS: cefTRIAXone IN SWFI 1,000 MG/10 ML SYRINGE IVP STA (17:11)
[2024-05-16] MEDS: AZITHROMYCIN 500 MG TAB PO STA (17:11)
[2024-05-16] MEDS: IPRATROPIUM-ALBUTEROL 3 ML NEB INHALATION STA (17:56)
[2024-05-16 18:47] VITALS: BP 138/75; PULSE 93; TEMP 99.5
== END 2024-05-16 18:55 | disposition home or self-care (01) ==
LOC: EC 13:14
DX: J40 Bronchitis, not specified as acute or chronic (principal); Z90.2 Acquired absence of lung [part of]; J44.9 Chronic obstructive pulmonary disease, unspecified; C34.91 Malignant neoplasm of unspecified part of right bronchus or lung; Z87.891 Personal history of nicotine dependence
CPT/HCPCS: 36415; 94640; 93005; 80053; 83605; 84484; 85025; 85610; 85730; 87636; 71046; 99285; 96374; 96375; 96376; J2270; J0696

== ENCOUNTER 2024-07-11 09:49 | Emergency (ER) | payer MEDICARE, OTHER ==
[2024-07-11 09:56] VITALS: TEMP 98.8
--- NOTE | 2024-07-11 11:01 | XR ---
EXAMINATION TYPE: XR chest 2V DATE OF EXAM: 07/11/2024 10:40 AM COMPARISON: Multiple radiographs, with the most recent on 05/16/2024 TECHNIQUE: XR chest 2V Frontal and lateral views of the chest. CLINICAL INDICATION:Male, 64 years old with history of cough; FINDINGS: Lungs/Pleura: Postsurgical changes from right upper lobectomy demonstrated with decreased size of cav itary region within the surgical bed in the right lung apex from prior radiograph. This demonstrates gas and fluid. No pneumothorax. No sizable pleural effusion. Pulmonary vascularity: Unremarkable. Heart/mediastinum: Cardiomediastinal silhouette is unremarkable. Musculoskeletal: Multiple level degenerative disc disease changes seen throughout the spine. IMPRESSION: Postsurgical changes from right upper lobectomy demonstrated with decreased size of cavitary region w ithin the surgical bed in the right lung apex from prior radiograph. No new focal consolidation. [facility], , 07/11/2024 10:58 AM
[2024-07-11 11:05] LABS: Influenza A Not Detected (Not Detectd); Influenza B Not Detected (Not Detectd); RSV Not Detected (Not Detectd)
[2024-07-11] MEDS: HYDROmorphone 1 MG/ML 1 ML SYRINGE IM STA ×2 (11:24→12:30)
[2024-07-11] MEDS: methylPREDNISolone SOD SUCCI 125 MG/2 ML VIAL IM ONE (11:24)
[2024-07-11] MEDS: IPRATROPIUM-ALBUTEROL 3 ML NEB INHALATION STA (11:27)
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
[2024-07-11 12:35] VITALS: BP 122/73; PULSE 80; RESP 20
== END 2024-07-11 12:35 | disposition home or self-care (01) ==
LOC: EC 09:49
DX: J20.9 Acute bronchitis, unspecified (principal); M54.50 Low back pain, unspecified; J44.9 Chronic obstructive pulmonary disease, unspecified; Z85.118 Personal history of other malignant neoplasm of bronchus and lung; Z87.891 Personal history of nicotine dependence
CPT/HCPCS: 94640; 87636; 71046; 99284; 96372; J1171; J2919

== ENCOUNTER 2024-07-14 12:14 | Observation (INO) | payer MEDICARE, OTHER ==
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
[2024-07-14] MEDS: NITROGLYCERIN SL TABS 0.4 MG TAB SUBLINGUAL STA (12:52)
[2024-07-14] MEDS: ASPIRIN 81 MG PO STA (12:53)
[2024-07-14] MEDS: MORPHINE SULFATE 4 MG/ML SYRINGE IV STA ×2 (12:56→14:21)
[2024-07-14 13:08] LABS: Basophils # (A) 0.01 10*3/uL (0.00-0.10); Basophils % (A) 0.1 %; HCT 38.1 % (39.6-50.0); HGB 12.9 g/dL (13.0-17.0); Lymphocytes % (A) 9.7 %; MCH 27.2 pg (27.0-32.0); MCHC 33.9 g/dL (32.0-37.0); MCV 80.2 fL (80.0-97.0); Mean Platelet Volume 9.2 fL (9.5-12.2); Monocytes # (A) 0.36 10*3/uL (0.20-1.00); Monocytes % (A) 3.2 %; Neutrophils # (A) 9.75 10*3/uL (1.80-7.70); Neutrophils % (A) 86.2 %; Platelet Count 219 10*3/uL (140-440); RBC 4.75 10*6/uL (4.40-5.60); RDW 16.6 % (11.5-14.5); WBC 11.31 10*3/uL (4.50-10.00)
[2024-07-14 13:20] LABS: ALT 19 U/L (4-49); AST 20 U/L (17-59); African American GFR (CKD) >90 (>60 ml/min/1.73 sqM); Albumin 4.1 g/dL (3.5-5.0); Alkaline Phosphatase 87 U/L (38-126); Amylase 36 U/L (30-110); Anion Gap 9 mmol/L; Blood Urea Nitrogen 18 mg/dL (9-20); Carbon Dioxide 26 mmol/L (22-30); Chloride 104 mmol/L (98-107); Glucose 136 mg/dL (74-99); Lipase 42 U/L (23-300); Magnesium 2.2 mg/dL (1.6-2.3); Non-African American GFR(CKD) >90 (>60 ml/min/1.73 sqM); Potassium 4.4 mmol/L (3.5-5.1); Sodium 139 mmol/L (137-145); Total Bilirubin 0.5 mg/dL (0.2-1.3)
[2024-07-14 13:22] LABS: INR 0.8 (<1.2); Partial Thromboplastin Time 22.2 sec (22.0-30.0); Prothrombin Time 9.4 sec (10.0-12.5)
[2024-07-14 13:28] LABS: NT-Pro-B-Type Natriuretic Pept 1180 pg/mL
--- NOTE | 2024-07-14 13:32 | XR ---
Chest, 2 view. CLINICAL INDICATION: Male, 64 years old with history of Chest Pain COMPARISON: 07/11/2024 TECHNIQUE: PA and lateral views the chest are obtained. FINDINGS: There are postsurgical changes of right upper lobe lobectomy with retraction of the right jc superi ariadna and moderate volume loss of the right hemithorax. There is no airspace consolidation. There is no pleural effusion or pneumothorax. The heart and pulmonary vasculature are normal. The osseous structures are intact IMPRESSION: 1. Stable postsurgical changes of right upper lobe lobectomy with volume loss. 2. No acute cardiopulmonary disease. [facility], Workstation: [facility], 07/14/2024 1:30 PM
[2024-07-14] MEDS: MAG HYDROX/AL HYDROX/SIMETH 30 ML CUP PO STA (15:12)
[2024-07-14] MEDS: HYDROcodone/APAP 10-325MG 1 EACH TAB PO PRN (16:33)
[2024-07-14] MEDS: METOPROLOL TARTRATE 25 MG TAB PO SCH (18:28)
[2024-07-14] MEDS: NITROGLYCERIN SL TABS 0.4 MG TAB SUBLINGUAL PRN (18:28)
[2024-07-14] MEDS: FORMOTEROL FUMARATE 20 MCG/2 ML NEBU INHALATION SCH (19:50)
[2024-07-14] MEDS ORDERED: NON FORMULARY DRUG (Glycopyrrolate/Formoterol Fum [Bevespi Aerosphere Inhaler] 10.7 GM Gm) INHALATION SCH (20:00)
[2024-07-14] MEDS: TAMSULOSIN 0.4 MG CAP.ER.24H PO SCH (21:33)
[2024-07-14] MEDS: APIXABAN 5 MG TAB PO SCH (21:33)
[2024-07-14] MEDS: ARIPiprazole 5 MG TAB PO SCH (21:33)
[2024-07-14] MEDS: SENNOSIDES-DOCUSATE SODIUM 1 EACH TAB PO SCH (21:33)
[2024-07-14] MEDS: HYDROmorphone 0.5 MG/0.5 ML SYRINGE IVP STA (23:21)
[2024-07-14] MEDS: NON FORMULARY DRUG (Tiotropium Br/Olodaterol Hcl [Stiolto Respimat Inhaler (60)] 4 GM Mist INHALATION SCH (23:47)
[2024-07-15 01:15] VITALS: TEMP 97.5
[2024-07-15] MEDS: PANTOPRAZOLE 40 MG TABLET PO SCH (06:10)
[2024-07-15 08:00] VITALS: BP 146/85; RESP 16
[2024-07-15] MEDS: TIOTROPIUM 2.5 MCG INHALER INHALATION SCH (08:26)
[2024-07-15 08:39] VITALS: PULSE 60
[2024-07-15] MEDS: ASPIRIN 325 MG TAB PO SCH (08:42)
[2024-07-15] MEDS: OXYBUTYNIN 15 MG TAB.ER.24 PO SCH (08:43)
[2024-07-15] MEDS: predniSONE 50 MG TAB PO SCH (08:43)
[2024-07-15] MEDS: buPROPion XL 150 MG TAB.ER.24H PO SCH (09:40)
[2024-07-15 10:18] LABS: Chol/HDL Ratio 2.76 Ratio; LDL Cholesterol,Calculated 74.6 mg/dL (0.0-131.0); VLDL Calculation 12.08 mg/dL (5.00-40.00)
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
--- NOTE | 2024-07-15 10:32 | P.DS ---
Providers Date of admission: 07/14/24 15:38 Expected date of discharge: 07/15/24 Attending physician: Rajan Mackey Consults: 07/14/24 15:38 Consult Physician Routine Consulting Provider: Davian Snow Consult Reason/Comments: chest pain Do you want consulting provider notified?: Yes Primary care physician: Elvis Hoffmann - Discharge Diagnosis(es) (1) Atypical chest pain Current Visit: Yes Status: Acute (2) GERD (gastroesophageal reflux disease) Current Visit: Yes Status: Acute (3) History of lobectomy of lung Current Visit: Yes Status: Acute (4) Atrial fibrillation Current Visit: Yes Status: Acute (5) COPD mixed type Current Visit: Yes Status: Acute (6) Squamous cell lung cancer Current Visit: No Status: Acute Priority: Medium Hospital Course: Patient was admitted for chest pain midepigastrium is a history of A-fib lung cancer and right lobectomy. He indicates pain was midepigastric. He is cleared by cardiology. Is felt to be more GI irritation and gastritis probably related to recent antibiotics of Augmentin and prednisone for a COPD exacerbation. He is stable doing better. He will be discharged home. Plan - Discharge Summary Discharge Rx Participant: Yes New Discharge Prescriptions: New Sucralfate [Carafate] 1 gm PO ACHS 15 Days #60 tab Mag Hydrox/Al Hydrox/Simeth [Maalox] 30 ml PO QID #333 ml Nitroglycerin Sl Tabs [Nitrostat] 0.4 mg SUBLINGUAL Q5M PRN tab PRN Reason: Chest Pain Tiotropium 2.5 Mcg/Puff [Spiriva Respimat 2.5 Mcg] 2 puff INHALATION RT-DAILY each Continue buPROPion XL [Wellbutrin XL] 150 mg PO DAILY Glycopyrrolate/Formoterol Fum [Bevespi Aerosphere Inhaler] 2 puff INHALATION RT-BID ARIPiprazole [Abilify] 2.5 mg PO HS Tamsulosin [Flomax] 0.4 mg PO BID Clobetasol Propionate [Temovate 0.05% Cream] 1 applic TOPICAL BID Ketoconazole 2% Shampoo [Nizoral] 1 applic TOPICAL DAILY PRN PRN Reason: psoriasis Oxybutynin Chloride [oxyBUTYnin chloride ER] 15 mg PO DAILY Tiotropium Br/Olodaterol HCl [Stiolto Respimat Inhaler (60)] 2 puff INHALATI ON DIRECTED predniSONE 50 mg PO DAILY #5 tab Aspirin 81 mg PO DAILY #30 tab Apixaban [Eliquis] 5 mg PO BID #60 tab Pantoprazole [Protonix] 40 mg PO AC-BRKFST #30 tab Metoprolol Tartrate [Lopressor] 25 mg PO BID-W/MEALS Sennosides-Docusate Sodium [Senokot-S] 1 tab PO BID HYDROcodone/APAP 10-325MG [[place] 10-325] 1 tab PO Q6H PRN PRN Reason: Pain Amoxic-Pot Clav 875-125Mg [Augmentin 875-125] 1 tab PO Q12HR #20 tab Discharge Medication List buPROPion XL [Wellbutrin XL] 150 mg PO DAILY 07/06/22 [History] Glycopyrrolate/Formoterol Fum [Bevespi Aerosphere Inhaler] 2 puff INHALATION RT- BID 12/21/23 [History] ARIPiprazole [Abilify] 2.5 mg PO HS 02/07/24 [History] Tamsulosin [Flomax] 0.4 mg PO BID 02/09/24 [History] Apixaban [Eliquis] 5 mg PO BID #60 tab 02/13/24 [Rx] Aspirin 81 mg PO DAILY #30 tab 02/13/24 [Rx] Pantoprazole [Protonix] 40 mg PO AC-BRKFST #30 tab 02/13/24 [Rx] Metoprolol Tartrate [Lopressor] 25 mg PO BID-W/MEALS 02/18/24 [History] Sennosides-Docusate Sodium [Senokot-S] 1 tab PO BID 05/16/24 [History] Amoxic-Pot Clav 875-125Mg [[place] 875-125] 1 tab PO Q12HR #20 tab 07/11/24 [Rx] Clobetasol Propionate [Temovate 0.05% Cream] 1 applic TOPICAL BID 07/11/24 [History] HYDROcodone/APAP 10-325MG [[place] 10-325] 1 tab PO Q6H PRN 07/11/24 [History] Ketoconazole 2% Shampoo [Nizoral] 1 applic TOPICAL DAILY PRN 07/11/24 [History] Oxybutynin Chloride [oxyBUTYnin chloride ER] 15 mg PO DAILY 07/11/24 [History] Tiotropium Br/Olodaterol HCl [Stiolto Respimat Inhaler (60)] 2 puff INHALATION DIRECTED 07/11/24 [History] predniSONE 50 mg PO DAILY #5 tab 07/11/24 [Rx] Mag Hydrox/Al Hydrox/Simeth [Maalox] 30 ml PO QID #333 ml 07/15/24 [Rx] Nitroglycerin Sl Tabs [Nitrostat] 0.4 mg SUBLINGUAL Q5M PRN tab 07/15/24 [Rx] Sucralfate [Carafate] 1 gm PO ACHS 15 Days #60 tab 07/15/24 [Rx] Tiotropium 2.5 Mcg/Puff [Spiriva Respimat 2.5 Mcg] 2 puff INHALATION RT-DAILY each 07/15/24 [Rx] Follow up Appointment(s)/Referral(s): Elvis Hoffmann Jr, DO [Primary Care Provider] - 1-2 days Cayetano Marmolejo DO [STAFF PHYSICIAN] - 1 Week
[2024-07-15] MEDS: LIDOCAINE VISCOUS 2% 15 ML CUP PO ONE ×2 (10:49→10:50)
[2024-07-15] MEDS: HYDROmorphone 0.5 MG/0.5 ML SYRINGE IVP STA (10:51)
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
[2024-07-15] MEDS: MAG HYDROX/AL HYDROX/SIMETH 30 ML CUP PO SCH (13:32)
== END 2024-07-15 13:57 | disposition home or self-care (01) ==
LOC: EC 12:14 → 6NMEDSUR 15:38
PROVIDERS: ADMIT Family Medicine; ATTEND Family Medicine
DX: R07.89 Other chest pain (principal); K21.9 Gastro-esophageal reflux disease without esophagitis; J44.0 Chronic obstructive pulmonary disease with (acute) lower respiratory infection; J20.9 Acute bronchitis, unspecified; I48.0 Paroxysmal atrial fibrillation; Z79.899 Other long term (current) drug therapy; Z79.01 Long term (current) use of anticoagulants; Z79.82 Long term (current) use of aspirin; Z85.118 Personal history of other malignant neoplasm of bronchus and lung; Z90.2 Acquired absence of lung [part of]; Z87.01 Personal history of pneumonia (recurrent); Z87.891 Personal history of nicotine dependence
CPT/HCPCS: 96376 ×2; 96375; 96374; 99285; 36415; 94640 ×3; 94760; 93005; 85379; 83880; 80061; 80053; 82150; 83690; 83735; 84484; 85025; 85610; 85730; 71046; G0378 ×2; J2270; J7512; J1171 ×2

== ENCOUNTER 2024-08-05 20:26 | Observation (INO) | payer MEDICARE, OTHER ==
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
[2024-08-05 21:19] LABS: Basophils # (A) 0.03 10*3/uL (0.00-0.10); Basophils % (A) 0.4 %; Eosinophils # (A) 0.35 10*3/uL (0.04-0.35); Eosinophils % (A) 4.8 %; HCT 38.5 % (39.6-50.0); HGB 13.4 g/dL (13.0-17.0); Lymphocytes # (A) 1.95 10*3/uL (0.90-5.00); Lymphocytes % (A) 26.7 %; MCH 28.3 pg (27.0-32.0); MCHC 34.8 g/dL (32.0-37.0); MCV 81.2 fL (80.0-97.0); Mean Platelet Volume 9.8 fL (9.5-12.2); Monocytes % (A) 8.2 %; Neutrophils # (A) 4.34 10*3/uL (1.80-7.70); Neutrophils % (A) 59.5 %; Platelet Count 253 10*3/uL (140-440); RBC 4.74 10*6/uL (4.40-5.60); RDW 15.5 % (11.5-14.5)
[2024-08-05 21:29] LABS: ALT 18 U/L (4-49); AST 21 U/L (17-59); African American GFR (CKD) 90 (>60 ml/min/1.73 sqM); Albumin 4.2 g/dL (3.5-5.0); Alkaline Phosphatase 87 U/L (38-126); Anion Gap 11 mmol/L; Blood Urea Nitrogen 21 mg/dL (9-20); Calcium 9.4 mg/dL (8.4-10.2); Carbon Dioxide 27 mmol/L (22-30); Chloride 101 mmol/L (98-107); Glucose 85 mg/dL (74-99); Magnesium 1.9 mg/dL (1.6-2.3); Non-African American GFR(CKD) 78 (>60 ml/min/1.73 sqM); Phosphorus 3.3 mg/dL (2.5-4.5); Potassium 3.8 mmol/L (3.5-5.1); Sodium 139 mmol/L (137-145); Total Bilirubin 0.6 mg/dL (0.2-1.3); Total Protein 7.1 g/dL (6.3-8.2)
[2024-08-05 21:32] LABS: Partial Thromboplastin Time 24.9 sec (22.0-30.0); Prothrombin Time 10.8 sec (10.0-12.5)
[2024-08-05 21:37] LABS: NT-Pro-B-Type Natriuretic Pept 224 pg/mL
[2024-08-05] MEDS: IPRATROPIUM-ALBUTEROL 3 ML NEB INHALATION STA (21:43)
[2024-08-05] MEDS: SODIUM CHLORIDE 0.9% 1,000 ML IV ONE (21:50)
[2024-08-05] MEDS: MORPHINE SULFATE 4 MG/ML SYRINGE IV STA (21:50)
[2024-08-05] MEDS: ONDANSETRON 4 MG/2 ML VIAL IVP STA (21:51)
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
[2024-08-05] MEDS ORDERED: ONDANSETRON 4 MG/2 ML VIAL IVP PRN (23:47)
[2024-08-05] MEDS ORDERED: ALBUTEROL NEBULIZED 2.5 MG/3 ML INHALATION PRN (23:47)
[2024-08-05] MEDS ORDERED: NALOXONE 0.4 MG/ML 1 ML VIAL IV PRN (23:47)
[2024-08-06] MEDS ORDERED: methylPREDNISolone SOD SUCCI 125 MG/2 ML VIAL IV SCH
[2024-08-06] MEDS: IPRATROPIUM-ALBUTEROL 3 ML NEB INHALATION STA (00:11)
[2024-08-06] MEDS ORDERED: IPRATROPIUM-ALBUTEROL 3 ML NEB INHALATION PRN (00:13)
[2024-08-06] MEDS: methylPREDNISolone SOD SUCCI 125 MG/2 ML VIAL IV STA (00:24)
[2024-08-06] MEDS: SODIUM CHLORIDE 0.9% 1,000 ML IV SCH (00:24)
[2024-08-06] MEDS: HYDROmorphone 1 MG/ML 1 ML SYRINGE IVP STA (00:26)
[2024-08-06] MEDS: HYDROmorphone 1 MG/ML 1 ML SYRINGE IVP PRN (03:52)
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
[2024-08-06] MEDS: methylPREDNISolone SOD SUCCI 125 MG/2 ML VIAL IV SCH (06:04)
[2024-08-06] MEDS: IPRATROPIUM-ALBUTEROL 3 ML NEB INHALATION SCH (08:19)
[2024-08-06] MEDS: SYMBICORT 160-4.5 MCG INHALER INHALATION SCH (08:19)
[2024-08-06] MEDS: guaiFENesin-DM 100-10MG/5ML 10 ML CUP PO PRN (10:03)
[2024-08-06] MEDS: PANTOPRAZOLE 40 MG/10 ML VIAL IV SCH (10:03)
[2024-08-06] MEDS: METOPROLOL TARTRATE 25 MG TAB PO SCH (10:10)
[2024-08-06] MEDS: APIXABAN 5 MG TAB PO SCH (10:11)
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
[2024-08-06 14:50] VITALS: BP 113/61; RESP 15; TEMP 98.7
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
[2024-08-06 15:39] VITALS: PULSE 72
--- NOTE | 2024-08-06 17:09 | CA ---
Transthoracic Echo Report Name: Brian Dickens Age: 64 Gender: M : 1960 Exam Date: 08/06/2024 10:20 Exam Location: [place] [facility] Ht (in): 70 Wt (lb): 220 Ordering Physician: Tiki Montoya Attending/Referring Phys: [id number], Lindsay Boat Tender Yaz Mendiola RDCS Procedure CPT: Indications: sob Cardiac Hx: Technical Quality: Good Contrast 1: Total Dose (mL): Contrast 2: Total Dose (mL): MEASUREMENTS (Male / Female) Normal Values 2D ECHO LV Diastolic Diameter PLAX 5.7 cm 4.2 - 5.9 / 3.9 - 5.3 cm LV Systolic Diameter PLAX 3.8 cm IVS Diastolic Thickness 0.8 cm 0.6 - 1.0 / 0.6 - 0.9 cm LVPW Diastolic Thickness 1.0 cm 0.6 - 1.0 / 0.6 - 0.9 cm LV Relative Wall Thickness 0.3 LVOT Diameter 2.5 cm LV Diastolic Volume MOD BP 172.6 cm??? 67 - 155 / 56 - 104 cm??? LV Systolic Volume MOD BP 62.6 cm??? 22 - 58 / 19 - 49 cm??? LV Ejection Fraction MOD BP 63.8 % >= 55 % LV Cardiac Index MOD BP 3965.0 cm???/min???m??? LV Diastolic Volume MOD 4C 187.7 cm??? LV Systolic Volume MOD 4C 69.4 cm??? LV Ejection Fraction MOD 4C 63.0 % LV Cardiac Index MOD 4C 4258.5 cm???/min???m??? LV Diastolic Length 4C 9.3 cm LV Systolic Length 4C 7.7 cm LV Diastolic Volume MOD 2C 158.9 cm??? LV Systolic Volume MOD 2C 53.3 cm??? LV Ejection Fraction MOD 2C 66.5 % LV Cardiac Index MOD 2C 3804.1 cm???/min???m??? LV Diastolic Length 2C 9.4 cm LV Systolic Length 2C 7.1 cm LA Volume 55.5 cm??? 18 - 58 / 22 - 52 cm??? LA Volume Index 24.7 cm???/m??? 16 - 28 cm???/m??? DOPPLER AV Peak Velocity 154.7 cm/s AV Peak Gradient 9.6 mmHg AV Mean Velocity 111.4 cm/s AV Mean Gradient 5.5 mmHg AV Velocity Time Integral 33.9 cm LVOT Peak Velocity 123.3 cm/s LVOT Peak Gradient 6.1 mmHg LVOT Velocity Time Integral 26.8 cm LVOT Stroke Volume 128.9 cm??? LVOT Stroke Volume Index 59.3 ml/m??? LVOT Cardiac Index 4641.1 cm???/min???m??? AV Area Cont Eq vti 3.8 cm??? AV Area Cont Eq pk 3.8 cm??? MV Area PHT 5.8 cm??? Mitral E Point Velocity 73.2 cm/s Mitral A Point Velocity 70.8 cm/s Mitral E to A Ratio 1.0 MV Deceleration Time 131.3 ms PV Peak Velocity 86.8 cm/s PV Peak Gradient 3.0 mmHg FINDINGS Left Ventricle Left ventricular ejection fraction is estimated at 60 %. Mildly increased left ventricular diastolic volume. Mildly increased left ventricular systolic volume. Left ventricular wall thickness normal. No obvious regional wall motion abnormalities. Right Ventricle Normal right ventricular size and function. Unable to estimate the right ventricular systolic pressure. Right Atrium Normal right atrial size. Left Atrium Normal left atrial size. Mitral Valve Structurally normal mitral valve. No mitral stenosis, regurgitation or prolapse. Aortic Valve Trileaflet aortic valve. No aortic valve stenosis or regurgitation. Tricuspid Valve Structurally normal tricuspid valve. No tricuspid stenosis. Trace tricuspid regurgitation. Pulmonic Valve Structurally normal pulmonic valve. No pulmonic stenosis. Trace pulmonic regurgitation. Pericardium No pericardial effusion. Aorta Normal size aortic root and proximal ascending aorta. CONCLUSIONS Left ventricle is at upper limits of normal with normal systolic function. Normal right ventricular size and function. Right-sided pressures are not well quantified. Minimal mitral and tricuspid regurgitation no pericardial effusion Previewed by: Dr. Lawanda Velazquez MD (Electronically Signed) Final Date: 06 Aug 2024 17:08
== END 2024-08-06 16:48 | disposition home or self-care (01) ==
LOC: EC 20:26 → 6NMEDSUR 23:49
PROVIDERS: ADMIT Family Medicine; ATTEND Family Medicine
DX: J44.1 Chronic obstructive pulmonary disease with (acute) exacerbation (principal); J96.01 Acute respiratory failure with hypoxia; J44.0 Chronic obstructive pulmonary disease with (acute) lower respiratory infection; J20.9 Acute bronchitis, unspecified; R07.89 Other chest pain; I48.0 Paroxysmal atrial fibrillation; R11.2 Nausea with vomiting, unspecified; T50.995A Adverse effect of other drugs, medicaments and biological substances, initial encounter; N40.0 Benign prostatic hyperplasia without lower urinary tract symptoms; M79.602 Pain in left arm; G89.29 Other chronic pain; M54.50 Low back pain, unspecified; F32.A Depression, unspecified; F41.9 Anxiety disorder, unspecified; E66.9 Obesity, unspecified; Z68.31 Body mass index [BMI] 31.0-31.9, adult; Z79.01 Long term (current) use of anticoagulants; Z79.82 Long term (current) use of aspirin; Z79.899 Other long term (current) drug therapy; Z79.51 Long term (current) use of inhaled steroids; Z90.2 Acquired absence of lung [part of]; Z85.118 Personal history of other malignant neoplasm of bronchus and lung; Z87.01 Personal history of pneumonia (recurrent); Z87.891 Personal history of nicotine dependence
CPT/HCPCS: 96376; 96375 ×3; 96361; 96374; 99285; 36415; 94640 ×2; 94760; 93005; 93306; 85379; 83880; 80053; 83605; 83735; 84100; 84484 ×2; 85025; 85610; 85730; 71275; G0378; J2270; J2405; J1171; Q9967; J2919; J2470

== ENCOUNTER 2024-08-13 08:31 | Emergency (ER) | payer MEDICARE, OTHER ==
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
[2024-08-13 09:46] LABS: Basophils # (A) 0.04 10*3/uL (0.00-0.10); Basophils % (A) 0.2 %; Eosinophils # (A) 0.01 10*3/uL (0.04-0.35); Eosinophils % (A) 0.1 %; HCT 39.7 % (39.6-50.0); HGB 13.5 g/dL (13.0-17.0); Lymphocytes % (A) 8.7 %; MCH 27.4 pg (27.0-32.0); MCV 80.7 fL (80.0-97.0); Mean Platelet Volume 9.3 fL (9.5-12.2); Monocytes # (A) 1.07 10*3/uL (0.20-1.00); Monocytes % (A) 6.2 %; Neutrophils # (A) 14.55 10*3/uL (1.80-7.70); Platelet Count 274 10*3/uL (140-440); RBC 4.92 10*6/uL (4.40-5.60); RDW 15.6 % (11.5-14.5); WBC 17.31 10*3/uL (4.50-10.00)
[2024-08-13 10:02] LABS: ALT 16 U/L (4-49); AST 13 U/L (17-59); African American GFR (CKD) >90 (>60 ml/min/1.73 sqM); Albumin 3.9 g/dL (3.5-5.0); Alkaline Phosphatase 74 U/L (38-126); Anion Gap 10 mmol/L; Blood Urea Nitrogen 16 mg/dL (9-20); Calcium 9.2 mg/dL (8.4-10.2); Carbon Dioxide 27 mmol/L (22-30); Chloride 100 mmol/L (98-107); Glucose 128 mg/dL (74-99); Lipase 32 U/L (23-300); Non-African American GFR(CKD) 86 (>60 ml/min/1.73 sqM); Potassium 4.1 mmol/L (3.5-5.1); Sodium 137 mmol/L (137-145); Total Bilirubin 1.2 mg/dL (0.2-1.3); Total Protein 6.8 g/dL (6.3-8.2)
--- NOTE | 2024-08-13 10:05 | XR ---
EXAMINATION TYPE: XR chest 2V DATE OF EXAM: 08/13/2024 CLINICAL INDICATION: Male, 64 years old with history of cough, TECHNIQUE: Frontal and lateral views of the chest are obtained. COMPARISON: CTA chest 8 days ago FINDINGS: Post treatment changes right upper lung with right-sided volume loss and pleural thickening is redemonstrated. New patchy opacity right lower lung. Left lung remains clear. The cardiac silhoue tte size is stable and within normal limits. The osseous structures are intact. IMPRESSION: Posttreatment changes right upper lung redemonstrated. New patchy right lower lung acute infiltrate and/or atelectasis. [facility], , 08/13/2024 10:02 AM
[2024-08-13] MEDS: SODIUM CHLORIDE 0.9% 1,000 ML IV SCH (10:14)
[2024-08-13] MEDS: KETOROLAC 15 MG/ML 1 ML VIAL IVP STA ×2 (10:15→13:03)
[2024-08-13] MEDS: diphenhydrAMINE 50 MG/ML 1 ML VIAL IVP STA (10:16)
[2024-08-13] MEDS: METOCLOPRAMIDE 5 MG/ML 2 ML VIAL IVP STA (10:17)
[2024-08-13 11:38] LABS: Appearance,Urine Clear (Clear); Bilirubin,Urine Negative (Negative); Blood,Urine Negative (Negative); Color,Urine Light Yellow; Glucose,Urine (UA) Negative (Negative); Ketones,Urine Negative (Negative); Leukocyte Esterase,Urine Negative (Negative); Nitrite,Urine Negative (Negative); Protein,Urine Negative (Negative); Specific Gravity,Urine 1.013 (1.001-1.035); Urobilinogen,Urine <2.0 mg/dL (<2.0)
[2024-08-13 12:03] VITALS: RESP 16
[2024-08-13 12:58] VITALS: BP 136/76; PULSE 86; TEMP 100.1
[2024-08-13] MEDS: cefTRIAXone IN SWFI 1,000 MG/10 ML SYRINGE IVP STA (12:59)
[2024-08-13] MEDS: HYDROmorphone 0.5 MG/0.5 ML SYRINGE IVP STA (12:59)
== END 2024-08-13 13:18 | disposition home or self-care (01) ==
LOC: EC 08:31
DX: R11.2 Nausea with vomiting, unspecified (principal); J18.9 Pneumonia, unspecified organism; M54.9 Dorsalgia, unspecified; G89.29 Other chronic pain; R10.11 Right upper quadrant pain; R10.31 Right lower quadrant pain; Z87.891 Personal history of nicotine dependence
CPT/HCPCS: 36415; 93005; 80053; 83690; 85025; 81003; 71046; 99284; 96374; 96375; 96376; 96361; J1200; J2765; J0696; J1885; J1171

== ENCOUNTER → 2024-09-14 | Outpatient (CLI) | payer MEDICARE ==
[2024-09-14 15:46] LABS: HCT 41.5 % (39.6-50.0); MCH 27.3 pg (27.0-32.0); MCHC 31.3 g/dL (32.0-37.0); Mean Platelet Volume 9.2 FL (9.5-12.2); NRBC Per 100 WBC 0 X 10*3/uL (0.00-0.01); Platelet Count 385 X 10*3/uL (140-440); RBC 4.77 X 10*6/uL (4.40-5.60); RDW 13.8 % (11.5-14.5); WBC 9.41 X 10*3/uL (4.50-10.00)
[2024-09-14 16:02] LABS: Calcium 9.8 mg/dL (8.7-10.3); Carbon Dioxide 27.3 mmol/L (21.6-31.8); Chloride 99 mmol/L (96-109); Glucose 100 mg/dL (70-110); Potassium 4.4 mmol/L (3.5-5.5); Sodium 136 mmol/L (135-145)
[2024-09-14 16:21] LABS: Appearance,Urine Clear (Clear); Bilirubin,Urine Negative (Negative); Blood,Urine Negative (Negative); Color,Urine Yellow (Yellow); Ketones,Urine Trace (Negative); Nitrite,Urine Negative (Negative); PH, Urine 5.5; Specific Gravity,Urine 1.013 (1.001-1.030); Urobilinogen,Urine 0.2 E.U./DL
== END | disposition home or self-care (01) ==
LOC: LABWHC1 10:24
PROVIDERS: ATTEND Urology
DX: Z01.812 Encounter for preprocedural laboratory examination (principal); N40.1 Benign prostatic hyperplasia with lower urinary tract symptoms
CPT/HCPCS: 36415; 80048; 81003; 85027; 87086

== ENCOUNTER 2024-09-16 10:37 | Emergency (ER) | payer MEDICARE ==
[2024-09-16 10:43] VITALS: TEMP 98
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
[2024-09-16 11:47] LABS: Basophils # (A) 0.03 10*3/uL (0.00-0.10); Basophils % (A) 0.3 %; Eosinophils # (A) 0.03 10*3/uL (0.04-0.35); Eosinophils % (A) 0.3 %; HCT 40.7 % (39.6-50.0); HGB 13.6 g/dL (13.0-17.0); Lymphocytes % (A) 23.6 %; MCHC 33.4 g/dL (32.0-37.0); MCV 83.7 fL (80.0-97.0); Monocytes # (A) 0.62 10*3/uL (0.20-1.00); Monocytes % (A) 5.2 %; Neutrophils # (A) 8.32 10*3/uL (1.80-7.70); Platelet Count 336 10*3/uL (140-440); RBC 4.86 10*6/uL (4.40-5.60); RDW 13.8 % (11.5-14.5); WBC 11.87 10*3/uL (4.50-10.00)
[2024-09-16] MEDS: MORPHINE SULFATE 4 MG/ML SYRINGE IVP STA (11:51)
[2024-09-16] MEDS: SODIUM CHLORIDE 0.9% 1,000 ML IV STA (11:51)
[2024-09-16] MEDS: ONDANSETRON 4 MG/2 ML VIAL IVP STA (11:51)
[2024-09-16 12:03] LABS: ALT 18 U/L (4-49); African American GFR (CKD) >90 (>60 ml/min/1.73 sqM); Albumin 4.6 g/dL (3.5-5.0); Anion Gap 12 mmol/L; Blood Urea Nitrogen 19 mg/dL (9-20); Calcium 9.6 mg/dL (8.4-10.2); Carbon Dioxide 26 mmol/L (22-30); Chloride 104 mmol/L (98-107); Glucose 102 mg/dL (74-99); Lipase 64 U/L (23-300); Non-African American GFR(CKD) >90 (>60 ml/min/1.73 sqM); Sodium 142 mmol/L (137-145); Total Bilirubin 0.7 mg/dL (0.2-1.3); Total Protein 7.8 g/dL (6.3-8.2)
[2024-09-16 12:06] LABS: AST 23 U/L (17-59); Potassium 4.2 mmol/L (3.5-5.1)
[2024-09-16 12:07] LABS: Alkaline Phosphatase 88 U/L (38-126)
[2024-09-16 12:23] LABS: Influenza A Not Detected (Not Detectd); Influenza B Not Detected (Not Detectd); RSV Not Detected (Not Detectd)
--- NOTE | 2024-09-16 12:24 | XR ---
Chest, 2 view. CLINICAL INDICATION: Male, 64 years old with history of cough COMPARISON: 08/15/2024 TECHNIQUE: PA and lateral views the chest are obtained. FINDINGS: There is persistent stable pleural parenchymal scarring with volume loss in the right upper lobe. There is no airspace consolidation or new interstitial opacity. There is no pleural effusion or pneumothorax. The heart, pulmonary vasculature, mediastinum and jc appear normal. The osseous structures are intact. IMPRESSION: 1. Stable chronic changes with volume loss in the right lung apex. 2. No acute cardiopulmonary disease. [facility], , 09/16/2024 12:22 PM
[2024-09-16] MEDS: MORPHINE SULFATE 2 MG/ML SYRINGE IVP ONE (13:59)
[2024-09-16] MEDS: ONDANSETRON 4 MG ODT STARTER PACK 2 TAB BTL PO STA (14:00)
[2024-09-16] MEDS: METOCLOPRAMIDE 5 MG/ML 2 ML VIAL IVP STA (14:01)
[2024-09-16 14:06] VITALS: BP 126/71; PULSE 74; RESP 17
== END 2024-09-16 14:06 | disposition home or self-care (01) ==
LOC: EC 10:37
DX: K52.9 Noninfective gastroenteritis and colitis, unspecified (principal); Z87.891 Personal history of nicotine dependence
CPT/HCPCS: 36415; 93005; 80053; 83605; 83690; 84484; 85025; 87636; 71046; 99284; 96374; 96375 ×2; 96376; 96361 ×2; J2270 ×2; J2765; J2405; S0119

== ENCOUNTER 2024-09-17 18:24 | Inpatient (IN) | payer MEDICARE ==
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
[2024-09-17] MEDS: SODIUM CHLORIDE 0.9% 1,000 ML IV SCH (18:48)
[2024-09-17] MEDS: SODIUM CHLORIDE 0.9% 1,000 ML IV STA (18:48)
[2024-09-17 18:56] LABS: Basophils # (A) 0.05 10*3/uL (0.00-0.10); Basophils % (A) 0.2 %; Eosinophils # (A) 0.01 10*3/uL (0.04-0.35); HGB 9.9 g/dL (13.0-17.0); Lymphocytes # (A) 1.85 10*3/uL (0.90-5.00); Lymphocytes % (A) 7.1 %; MCH 28.2 pg (27.0-32.0); MCV 85.5 fL (80.0-97.0); Mean Platelet Volume 9.2 fL (9.5-12.2); Monocytes # (A) 0.27 10*3/uL (0.20-1.00); Neutrophils # (A) 23.68 10*3/uL (1.80-7.70); Neutrophils % (A) 90.4 %; Platelet Count 376 10*3/uL (140-440); RBC 3.51 10*6/uL (4.40-5.60)
[2024-09-17 19:08] LABS: ALT 14 U/L (4-49); AST 17 U/L (17-59); African American GFR (CKD) >90 (>60 ml/min/1.73 sqM); Albumin 3.1 g/dL (3.5-5.0); Alkaline Phosphatase 58 U/L (38-126); Anion Gap 8 mmol/L; Blood Urea Nitrogen 18 mg/dL (9-20); Calcium 8.3 mg/dL (8.4-10.2); Carbon Dioxide 22 mmol/L (22-30); Chloride 105 mmol/L (98-107); Glucose 187 mg/dL (74-99); Non-African American GFR(CKD) 88 (>60 ml/min/1.73 sqM); Potassium 5.3 mmol/L (3.5-5.1); Sodium 135 mmol/L (137-145); Total Bilirubin 0.5 mg/dL (0.2-1.3); Total Protein 5.4 g/dL (6.3-8.2)
[2024-09-17 19:19] LABS: INR 1.1 (<1.2); Prothrombin Time 11.6 sec (10.0-12.5)
[2024-09-17 19:24] LABS: Partial Thromboplastin Time 19.4 sec (22.0-30.0)
[2024-09-17] MEDS: HYDROmorphone 0.5 MG/0.5 ML SYRINGE IVP STA (19:50)
[2024-09-17] MEDS ORDERED: NALOXONE 0.4 MG/ML 1 ML VIAL IV PRN (20:19)
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
[2024-09-17] MEDS: PANTOPRAZOLE 40 MG/10 ML VIAL IV SCH (21:23)
[2024-09-17] MEDS: HYDROmorphone 0.5 MG/0.5 ML SYRINGE IVP PRN (21:24)
[2024-09-18] MEDS: ACETAMINOPHEN TAB 325 MG TAB PO STA (01:45)
[2024-09-18 05:06] LABS: Basophils # (A) 0.02 10*3/uL (0.00-0.10); Basophils % (A) 0.1 %; HGB 9.2 g/dL (13.0-17.0); Lymphocytes # (A) 2.22 10*3/uL (0.90-5.00); Lymphocytes % (A) 9.8 %; MCH 28.5 pg (27.0-32.0); MCHC 32.9 g/dL (32.0-37.0); MCV 86.7 fL (80.0-97.0); Mean Platelet Volume 8.9 fL (9.5-12.2); Monocytes # (A) 0.91 10*3/uL (0.20-1.00); Neutrophils # (A) 19.18 10*3/uL (1.80-7.70); Neutrophils % (A) 84.5 %; Platelet Count 257 10*3/uL (140-440); RBC 3.23 10*6/uL (4.40-5.60); RDW 14.3 % (11.5-14.5); WBC 22.69 10*3/uL (4.50-10.00)
[2024-09-18 05:21] LABS: Carbon Dioxide 25 mmol/L (22-30); Chloride 100 mmol/L (98-107); Glucose 135 mg/dL (74-99); Potassium 4.7 mmol/L (3.5-5.1); Sodium 133 mmol/L (137-145)
[2024-09-18 05:22] LABS: African American GFR (CKD) >90 (>60 ml/min/1.73 sqM); Anion Gap 8 mmol/L; Blood Urea Nitrogen 20 mg/dL (9-20); Calcium 8.3 mg/dL (8.4-10.2); Non-African American GFR(CKD) 89 (>60 ml/min/1.73 sqM)
[2024-09-18 08:06] LABS: HCT 29.6 % (39.6-50.0); HGB 9.7 g/dL (13.0-17.0); MCH 28.5 pg (27.0-32.0); MCHC 32.8 g/dL (32.0-37.0); MCV 87.1 fL (80.0-97.0); Mean Platelet Volume 9.2 fL (9.5-12.2); Platelet Count 307 10*3/uL (140-440); RDW 14.2 % (11.5-14.5); WBC 22.55 10*3/uL (4.50-10.00)
[2024-09-18 08:27] LABS: African American GFR (CKD) >90 (>60 ml/min/1.73 sqM); Anion Gap 9 mmol/L; Blood Urea Nitrogen 18 mg/dL (9-20); Calcium 8.6 mg/dL (8.4-10.2); Carbon Dioxide 25 mmol/L (22-30); Chloride 102 mmol/L (98-107); Glucose 140 mg/dL (74-99); Non-African American GFR(CKD) 87 (>60 ml/min/1.73 sqM); Potassium 4.8 mmol/L (3.5-5.1); Sodium 136 mmol/L (137-145)
[2024-09-18] MEDS: HYDROmorphone 1 MG/ML 1 ML SYRINGE IVP PRN (09:29)
--- NOTE | 2024-09-18 10:33 | P.PN ---
Subjective Progress Note Date: 09/18/24 First pod from a turp with intraop bleeding requiring open evacuation of blood and bladder neck stitches. He was admitted for observation. He received 1 unit of blood and feels much better this am. There has been no active bleeding HIs hgb this am was 9.7 after 1 unit of blood. Objective - Vital Signs Vital signs: Vital Signs Temp 98.4 F 09/18/24 07:41 Pulse 84 09/18/24 07:41 Resp 18 09/18/24 07:41 BP 130/76 09/18/24 07:41 Pulse Ox 95 09/18/24 07:41 FiO2 Intake & Output 09/17/24 09/18/24 09/18/24 18:59 06:59 18:59 Intake Total 310 Output Total 1500 Balance -1190 Weight 99.79 kg Intake: Blood Product 310 Rc As-1 Unit 310 [id number] Output: Urine 1500 - Labs CBC & Chem 7: 09/18/24 07:38 09/18/24 07:38 Labs: Abnormal Lab Results - Last 24 Hours (Table) 09/17/24 09/17/24 09/17/24 Range/Units 16:40 18:35 18:35 WBC 26.20 H (4.50-10.00) 10*3/uL RBC 3.51 L (4.40-5.60) 10*6/uL Hgb 9.9 L (13.0-17.0) g/dL Hct 30.0 L (39.6-50.0) % MPV 9.2 L (9.5-12.2) fL Immature Gran # 0.34 H (0.00-0.04) 10*3/uL Neutrophils # 23.68 H (1.80-7.70) 10*3/uL Eosinophils # 0.01 L (0.04-0.35) 10*3/uL APTT 19.4 L (22.0-30.0) sec Sodium (137-145) mmol/L Potassium (3.5-5.1) mmol/L Glucose (74-99) mg/dL Calcium (8.4-10.2) mg/dL Total Protein (6.3-8.2) g/dL Albumin (3.5-5.0) g/dL Crossmatch See Detail 09/17/24 09/17/24 09/18/24 Range/Units 18:35 18:41 04:45 WBC 22.69 H (4.50-10.00) 10*3/uL RBC 3.23 L (4.40-5.60) 10*6/uL Hgb 9.2 L (13.0-17.0) g/dL Hct 28.0 L (39.6-50.0) % MPV 8.9 L (9.5-12.2) fL Immature Gran # 0.36 H (0.00-0.04) 10*3/uL Neutrophils # 19.18 H (1.80-7.70) 10*3/uL Eosinophils # 0.00 L (0.04-0.35) 10*3/uL APTT (22.0-30.0) sec Sodium 135 L (137-145) mmol/L Potassium 5.3 H (3.5-5.1) mmol/L Glucose 187 H (74-99) mg/dL Calcium 8.3 L (8.4-10.2) mg/dL Total Protein 5.4 L (6.3-8.2) g/dL Albumin 3.1 L (3.5-5.0) g/dL Crossmatch See Detail 09/18/24 09/18/24 09/18/24 Range/Units 04:45 07:38 07:38 WBC 22.55 H (4.50-10.00) 10*3/uL RBC 3.40 L (4.40-5.60) 10*6/uL Hgb 9.7 L (13.0-17.0) g/dL Hct 29.6 L (39.6-50.0) % MPV 9.2 L (9.5-12.2) fL Immature Gran # (0.00-0.04) 10*3/uL Neutrophils # (1.80-7.70) 10*3/uL Eosinophils # (0.04-0.35) 10*3/uL APTT (22.0-30.0) sec Sodium 133 L 136 L (137-145) mmol/L Potassium (3.5-5.1) mmol/L Glucose 135 H 140 H (74-99) mg/dL Calcium 8.3 L (8.4-10.2) mg/dL Total Protein (6.3-8.2) g/dL Albumin (3.5-5.0) g/dL Crossmatch Assessment and Plan Assessment: Impression: sp post turp with intraop bleeding controlled. Will observe the patient 24 hours more Probably will d/c home tomorrow.
[2024-09-18] MEDS ORDERED: guaiFENesin-DM 100-10MG/5ML 10 ML CUP PO PRN (20:49)
[2024-09-18] MEDS ORDERED: IPRATROPIUM-ALBUTEROL 3 ML NEB INHALATION PRN (20:49)
[2024-09-18] MEDS: ONDANSETRON 4 MG/2 ML VIAL IVP PRN (21:16)
[2024-09-18] MEDS: METOPROLOL TARTRATE 25 MG TAB PO SCH (21:16)
[2024-09-18] MEDS: CLOTRIMAZOLE TROCHE 10 MG TROCHE MUCOUS MEM SCH (21:19)
[2024-09-18] MEDS: ARIPiprazole 5 MG TAB PO SCH (22:28)
[2024-09-19] MEDS ORDERED: IOPAMIDOL CONTRAST (ORAL USE) VIAL PO PRN (03:23)
--- NOTE | 2024-09-19 05:05 | CT ---
EXAM: CT Abdomen and Pelvis With Intravenous Contrast CLINICAL HISTORY: had TURP that turned into open prostatectomy through bladder. Having extreme abd pain + distended + nauseous, pt states he feels like his stitches are going to pop when he coughs. Pt has suprapubic catheter and Ramos cath in TECHNIQUE: Axial computed tomography images of the abdomen and pelvis with intravenous contrast. Coronal and sagittal reconstructions are performed. CTDI is 24.3 mGy and DLP is 1478.1 mGy-cm. This CT exam was performed using one or more of the following dose reduction techniques: automated exposure control, adjustment of the mA and/or kV according to patient size, and/or use of iterative reconstruction technique. 818 images COMPARISON: 07/06/2022 FINDINGS: Lung bases: Small amount of patchy centrilobular opacities of bilateral lower lobes more on the right are new, suggest pneumonia. Pleural space: Small right pleural effusion. ABDOMEN: Liver: Unremarkable. No mass. Gallbladder and bile ducts: No acute findings. Pancreas: Unremarkable. No mass. No ductal dilation. Spleen: Unremarkable. No splenomegaly. Adrenals: Unremarkable. No mass. Kidneys and ureters: Unremarkable. No solid mass. No hydronephrosis. Stomach and bowel: The colon is dilated to a maximum diameter of 9 cm, worse in cecum and ascending colon. No mucosal thickening. PELVIS: Appendix: Normal appendix. Bladder: Urinary bladder is collapsed around Ramos catheter balloon and the suprapubic catheter balloon. Reproductive: prostatectomy. Subperitoneal space: Left anterior pelvic approaching drain terminates in the space of Retzius. No drainable fluid collection. ABDOMEN and PELVIS: Intraperitoneal space: Small pockets of pneumoperitoneum predominantly anterior pelvis, corresponds to patient's history of recent prostatectomy. Bones/joints: Moderate degenerative changes. 5 mm retrolisthesis of L5 on S1. Mild anterior wedge-shaped compression defect at T11, unchanged. Soft tissues: Small amount of gas of anterior pelvic wall. Midline incision of anterior pelvic wall close with multiple surgical kelly. Mild anasarca. Vasculature: Moderate amount of atherosclerotic calcifications. No abdominal aortic aneurysm. Lymph nodes: Unremarkable. No enlarged lymph nodes. IMPRESSION: 1. Small right pleural effusion. Bilateral lower lobe pneumonia, worse on the right 2. Small pockets of pneumoperitoneum predominantly anterior pelvis, corresponds to patient's history of recent prostatectomy. 3. Mild anasarca
[2024-09-19 06:03] LABS: Basophils # (A) 0.03 10*3/uL (0.00-0.10); Basophils % (A) 0.2 %; Eosinophils # (A) 0.01 10*3/uL (0.04-0.35); Eosinophils % (A) 0.1 %; HCT 24.8 % (39.6-50.0); Lymphocytes # (A) 2.06 10*3/uL (0.90-5.00); MCH 28.2 pg (27.0-32.0); MCHC 32.7 g/dL (32.0-37.0); MCV 86.4 fL (80.0-97.0); Monocytes # (A) 0.87 10*3/uL (0.20-1.00); Monocytes % (A) 5.9 %; Neutrophils # (A) 11.51 10*3/uL (1.80-7.70); Neutrophils % (A) 78.4 %; Platelet Count 227 10*3/uL (140-440); RBC 2.87 10*6/uL (4.40-5.60); RDW 14.4 % (11.5-14.5); WBC 14.68 10*3/uL (4.50-10.00)
[2024-09-19 06:11] LABS: HGB 8.1 g/dL (13.0-17.0)
[2024-09-19] MEDS: TAMSULOSIN 0.4 MG CAP.ER.24H PO SCH (08:02)
[2024-09-19] MEDS: FERROUS SULFATE 325 MG TAB PO SCH (08:02)
[2024-09-19] MEDS: MULTIVITAMINS, THERA 1 EACH TAB PO SCH (08:03)
[2024-09-19] MEDS: buPROPion XL 150 MG TAB.ER.24H PO SCH (08:03)
--- NOTE | 2024-09-19 08:52 | P.PN ---
Subjective Progress Note Date: 09/19/24 The patient is in the second postoperative day from a TURP and subsequent suprapubic control of prostate bleeding. He has a suprapubic tube and a urethral catheter the urine is clear. He is having gas pains this morning. Objective - Vital Signs Vital signs: Vital Signs Temp 98.4 F 09/19/24 04:00 Pulse 92 09/19/24 04:00 Resp 18 09/19/24 04:00 BP 146/77 09/19/24 04:00 Pulse Ox 96 09/19/24 04:00 FiO2 Intake & Output 09/18/24 09/19/24 09/19/24 18:59 06:59 18:59 Output Total 900 2150 Balance -900 -2150 Weight 97.9 kg Output: Urine 900 2150 Other: Voiding Method Indwelling Catheter - Labs CBC & Chem 7: 09/19/24 05:45 09/18/24 07:38 Labs: Abnormal Lab Results - Last 24 Hours (Table) 09/19/24 Range/Units 05:45 WBC 14.68 H (4.50-10.00) 10*3/uL RBC 2.87 L (4.40-5.60) 10*6/uL Hgb 8.1 L D (13.0-17.0) g/dL Hct 24.8 L (39.6-50.0) % MPV 9.0 L (9.5-12.2) fL Immature Gran # 0.20 H (0.00-0.04) 10*3/uL Neutrophils # 11.51 H (1.80-7.70) 10*3/uL Eosinophils # 0.01 L (0.04-0.35) 10*3/uL Assessment and Plan Assessment: Impression: Status post TURP and suprapubic exposure to control bladder neck bleeding. The patient is recuperating appropriately. He is having gas pains which is normal on the second postoperative day. The urine is clear and the urethral catheter has been removed. I will probably observe another 24 hours and then he can be discharged home with the suprapubic tube which would remain in another week. This has been discussed with the patient. The plan then would be to clamp the suprapubic tube to make sure he urinates adequately as an outpatient.
[2024-09-19] MEDS: TIOTROPIUM 2.5 MCG INHALER INHALATION SCH (09:26)
[2024-09-19] MEDS: FORMOTEROL FUMARATE 20 MCG/2 ML NEBU INHALATION SCH (09:26)
[2024-09-19] MEDS: HYDROcodone/APAP 10-325MG 1 EACH TAB PO PRN (19:53)
[2024-09-20] MEDS: bisacodyL 5 MG TABLET.DR PO PRN (00:39)
[2024-09-20] MEDS: PANTOPRAZOLE 40 MG TABLET PO SCH (06:26)
[2024-09-20] MEDS: CALCIUM CARBONATE 500 MG CHEWABLE PO PRN (09:05)
--- NOTE | 2024-09-20 11:09 | P.DS ---
Providers Date of admission: 09/17/24 20:21 Attending physician: Servando Lyon Consults: 09/18/24 09:58 Consult Physician Routine Consulting Provider: Elvis Hoffmann Jr Consult Reason/Comments: Med management Do you want consulting provider notified?: Already Contacted Primary care physician: Elvis Hoffmann Hospital Course: The patient was admitted to hospital post turp and open bn control of bleeding lolly kaeljakobslim this week at [facility]. HE has recopuerated nicely THe bleeding has stopped. I pulled his urethral catheter. His wound is healing The sp cath is draining nicely. He will go home and fu next week for clamp sp tube and voiding trial He will get a small rx of norco. Post op instructions have been given. He will contact us for further problems Plan - Discharge Summary Discharge Rx Participant: Yes New Discharge Prescriptions: No Action buPROPion XL [Wellbutrin XL] 150 mg PO DAILY Tamsulosin [Flomax] 0.4 mg PO DAILY guaiFENesin-DM 100-10MG/5ML [Robitussin DM] 10 ml PO Q6HR PRN ml PRN Reason: Cough Ondansetron Odt [Zofran ODT] 4 mg PO Q8HR PRN #10 tab PRN Reason: Nausea Semaglutide [Wegovy] 0.5 mg SQ MO Tiotropium Br/Olodaterol HCl [Stiolto Respimat Inhaler (60)] 2 puff INHALATION RT-DAILY Clotrimazole 10 mg MUCOUS MEM Q6H Apixaban [Eliquis] 5 mg PO BID #60 tab Pantoprazole [Protonix] 40 mg PO AC-BRKFST #30 tab Metoprolol Tartrate [Lopressor] 25 mg PO BID HYDROcodone/APAP 10-325MG [[place] 10-325] 1 tab PO Q6H PRN PRN Reason: Pain Multivitamins, Thera [Multivitamin (formulary)] 1 tab PO DAILY Ferrous Sulfate [Iron (65 MG Elemental)] 325 mg PO DAILY ARIPiprazole [Abilify] 2.5 mg PO HS predniSONE See Taper PO DIRECTED Ipratropium-Albuterol Nebulize [Duoneb 0.5 mg-3 mg/3 ml Soln] 3 ml INHALATION RT-QID PRN PRN Reason: Shortness Of Breath Discharge Medication List buPROPion XL [Wellbutrin XL] 150 mg PO DAILY 07/06/22 [History] Tamsulosin [Flomax] 0.4 mg PO DAILY 02/09/24 [History] Apixaban [Eliquis] 5 mg PO BID #60 tab 02/13/24 [Rx] Pantoprazole [Protonix] 40 mg PO AC-BRKFST #30 tab 02/13/24 [Rx] Metoprolol Tartrate [Lopressor] 25 mg PO BID 02/18/24 [History] HYDROcodone/APAP 10-325MG [[place] 10-325] 1 tab PO Q6H PRN 07/11/24 [History] Ferrous Sulfate [Iron (65 MG Elemental)] 325 mg PO DAILY 08/06/24 [History] Multivitamins, Thera [Multivitamin (formulary)] 1 tab PO DAILY 08/06/24 [History] guaiFENesin-DM 100-10MG/5ML [Robitussin DM] 10 ml PO Q6HR PRN ml 08/06/24 [Rx] Ondansetron Odt [Zofran ODT] 4 mg PO Q8HR PRN #10 tab 08/13/24 [Rx] ARIPiprazole [Abilify] 2.5 mg PO HS 08/15/24 [History] Ipratropium-Albuterol Nebulize [Duoneb 0.5 mg-3 mg/3 ml Soln] 3 ml INHALATION RT-QID PRN 08/15/24 [History] predniSONE See Taper PO DIRECTED 08/15/24 [History] Clotrimazole 10 mg MUCOUS MEM Q6H 09/18/24 [History] Semaglutide [Wegovy] 0.5 mg SQ MO 09/18/24 [History] Tiotropium Br/Olodaterol HCl [Stiolto Respimat Inhaler (60)] 2 puff INHALATION RT-DAILY 09/18/24 [History] Follow up Appointment(s)/Referral(s): Elvis Hoffmann Jr, DO [Primary Care Provider] - 1-2 days Servando Lyon MD [STAFF PHYSICIAN] - 1 Week (home with sp tube, hold eliquis) Discharge Disposition: HOME SELF-CARE
[2024-09-20] MEDS: MAG HYDROX/AL HYDROX/SIMETH 30 ML CUP PO STA (14:13)
[2024-09-21] MEDS: SODIUM CHLORIDE 0.9% 250 ML IV ONE (09:38)
--- NOTE | 2024-09-21 10:26 | P.PN ---
Progress Note - Text Progress Note Date: 09/21/24 The patient is postoperative TURP. He is in thehospital and has been stable He was to be d/cd home yesterday but it was canceled due to chespt pain. His ekg was unchanged His hgb was 8.1 His urine is pink I asked cardiology to see him and there final report is pending but from the patient they didnt feel the pain was cardiac. We will see what the hgb before deciding pn d/c
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
[2024-09-21 13:13] LABS: Basophils # (A) 0.03 10*3/uL (0.00-0.10); Basophils % (A) 0.4 %; Eosinophils # (A) 0.08 10*3/uL (0.04-0.35); Eosinophils % (A) 1.1 %; HCT 21.1 % (39.6-50.0); Lymphocytes # (A) 1.67 10*3/uL (0.90-5.00); Lymphocytes % (A) 23.7 %; MCH 29.2 pg (27.0-32.0); MCHC 33.2 g/dL (32.0-37.0); MCV 87.9 fL (80.0-97.0); Mean Platelet Volume 9.6 fL (9.5-12.2); Monocytes # (A) 0.53 10*3/uL (0.20-1.00); Monocytes % (A) 7.5 %; Neutrophils # (A) 4.67 10*3/uL (1.80-7.70); Neutrophils % (A) 66.2 %; Platelet Count 266 10*3/uL (140-440); RDW 14.4 % (11.5-14.5); WBC 7.06 10*3/uL (4.50-10.00)
--- NOTE | 2024-09-21 20:00 | P.PN ---
Progress Note - Text Progress Note Date: 09/21/24 The patient has been stable but his hgb has dropped to 7. Due to the chest pain and low hgb I will transfuse him 2 units slowly this evening and repeat his hgb in the am
[2024-09-21] MEDS: ATORVASTATIN 40 MG TAB PO SCH (20:41)
[2024-09-22 07:34] LABS: Basophils # (A) 0.04 10*3/uL (0.00-0.10); Basophils % (A) 0.4 %; Eosinophils # (A) 0.12 10*3/uL (0.04-0.35); Eosinophils % (A) 1.3 %; HCT 29.6 % (39.6-50.0); Lymphocytes # (A) 1.96 10*3/uL (0.90-5.00); MCH 28.7 pg (27.0-32.0); MCHC 33.1 g/dL (32.0-37.0); MCV 86.5 fL (80.0-97.0); Mean Platelet Volume 8.8 fL (9.5-12.2); Monocytes # (A) 0.69 10*3/uL (0.20-1.00); Monocytes % (A) 7.7 %; Neutrophils # (A) 5.96 10*3/uL (1.80-7.70); Platelet Count 290 10*3/uL (140-440); RBC 3.42 10*6/uL (4.40-5.60); RDW 15.3 % (11.5-14.5); WBC 8.91 10*3/uL (4.50-10.00)
[2024-09-22 08:11] LABS: HGB 9.8 g/dL (13.0-17.0)
--- NOTE | 2024-09-22 13:14 | P.PN ---
Progress Note - Text Progress Note Date: 09/22/24 The patient was in the hospital post TURP bleeding. He has done well. He did require transfusion. He was to be discharged home yesterday but I elected to give him 2 more units of blood prior to discharge. He is feeling much better. He has had a bowel movement and is passing gas. His wound looks good. He is ambulating. His urine output is good. He will be discharged home. He does have pain medicine at home as he has chronic pain medicine and has a pain doctor. He will go home with a Ramos. He will follow-up in the office late next week for catheter removal. Postoperative instructions have been given
--- NOTE | 2024-09-22 18:27 | P.PN ---
Progress Note - Text Progress Note Date: 09/22/24 I was called by the nurse and the patient is very anxious about going home. He is concerned about blood loss. I will observe him 24 hours longer, repeat his hgb in the am
[2024-09-22 19:43] VITALS: RESP 18
[2024-09-23] MEDS: OXYBUTYNIN XL 5 MG TAB.ER.24 PO SCH (01:19)
[2024-09-23 07:37] VITALS: BP 118/78; TEMP 98.1
[2024-09-23 08:49] VITALS: PULSE 88
[2024-09-23] MEDS: OXYBUTYNIN 10 MG TAB.ER.24 PO SCH (09:29)
--- NOTE | 2024-09-23 11:55 | P.PN ---
Progress Note - Text Progress Note Date: 09/23/24 The patient did well overnight. His urine is clear. His abdomen was soft. His pain is much better controlled. He will be discharged home today. He has pain medicine at home. He will be given a prescription of oxybutynin. He will follow-up in the office next for catheter removal
== END 2024-09-23 12:35 | disposition home or self-care (01) | DRG 920 ==
LOC: EC 18:24 → 3SCARD 20:21 → OBSVTOIN 20:22 → 3SCARD 23:28
PROVIDERS: ADMIT Urology; ATTEND Urology
PROC: 30233N1 Transfusion of Nonautologous Red Blood Cells into Peripheral Vein, Percutaneous Approach (ICD-10-PCS; principal; 2024-09-17)
DX: N99.820 Postprocedural hemorrhage of a genitourinary system organ or structure following a genitourinary system procedure (principal); C34.11 Malignant neoplasm of upper lobe, right bronchus or lung; J44.9 Chronic obstructive pulmonary disease, unspecified; F32.A Depression, unspecified; D62 Acute posthemorrhagic anemia; I48.0 Paroxysmal atrial fibrillation; R07.89 Other chest pain; N40.0 Benign prostatic hyperplasia without lower urinary tract symptoms; F41.9 Anxiety disorder, unspecified; L40.9 Psoriasis, unspecified; G89.29 Other chronic pain; M54.9 Dorsalgia, unspecified; K21.9 Gastro-esophageal reflux disease without esophagitis; Z79.01 Long term (current) use of anticoagulants; Z79.85 Long-term (current) use of injectable non-insulin antidiabetic drugs; Z79.899 Other long term (current) drug therapy; Z87.891 Personal history of nicotine dependence; Z87.81 Personal history of (healed) traumatic fracture
CPT/HCPCS: 36415; 36430; 74177; 80048; 80053; 83605; 84484; 85025; 85027; 85610; 85730; 86850; 86900; 86901; 86920; 94640; 96361; 96374; 96375; 96376; 99291

== ENCOUNTER 2024-09-26 18:37 | Emergency (ER) | payer MEDICARE ==
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
[2024-09-26] MEDS: HYDROmorphone 1 MG/ML 1 ML SYRINGE IM STA (20:46)
[2024-09-26 20:51] VITALS: BP 121/74; PULSE 88; RESP 18; TEMP 98.3
== END 2024-09-26 20:54 | disposition home or self-care (01) ==
LOC: EC 18:37
DX: R33.9 Retention of urine, unspecified (principal); Z87.891 Personal history of nicotine dependence
CPT/HCPCS: 51798; 99283; 96372; J1171

== ENCOUNTER 2024-09-29 10:16 | Emergency (ER) | payer MEDICARE ==
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
[2024-09-29 12:33] LABS: Bilirubin,Urine Negative (Negative); Blood,Urine Large (Negative); Color,Urine Colorless; Glucose,Urine (UA) Negative (Negative); Ketones,Urine Negative (Negative); Leukocyte Esterase,Urine Large (Negative); Nitrite,Urine Negative (Negative); PH, Urine 5.5 (5.0-8.0); Protein,Urine Trace (Negative); Specific Gravity,Urine 1.007 (1.001-1.035); Urobilinogen,Urine <2.0 mg/dL (<2.0); WBC,Urine 153 /hpf (0-5)
[2024-09-29 12:34] LABS: RBC,Urine >182 /hpf (0-5)
[2024-09-29] MEDS: cefTRIAXone 1,000 MG VIAL (IM USE) IM STA (14:18)
[2024-09-29 15:16] LABS: ALT 21 U/L (4-49); African American GFR (CKD) >90 (>60 ml/min/1.73 sqM); Anion Gap 12 mmol/L; Blood Urea Nitrogen 10 mg/dL (9-20); Calcium 9.4 mg/dL (8.4-10.2); Carbon Dioxide 23 mmol/L (22-30); Chloride 104 mmol/L (98-107); Glucose 84 mg/dL (74-99); Non-African American GFR(CKD) >90 (>60 ml/min/1.73 sqM); Sodium 139 mmol/L (137-145)
[2024-09-29 15:19] LABS: AST 38 U/L (17-59); Albumin 4.1 g/dL (3.5-5.0); Alkaline Phosphatase 71 U/L (38-126); Potassium 5.5 mmol/L (3.5-5.1); Total Protein 7.0 g/dL (6.3-8.2)
[2024-09-29] MEDS: KETOROLAC 15 MG/ML 1 ML VIAL IVP STA (15:20)
[2024-09-29 15:59] LABS: Basophils # (A) 0.04 10*3/uL (0.00-0.10); Basophils % (A) 0.7 %; Eosinophils # (A) 0.27 10*3/uL (0.04-0.35); Eosinophils % (A) 4.8 %; HCT 33.9 % (39.6-50.0); HGB 11.0 g/dL (13.0-17.0); Lymphocytes # (A) 1.92 10*3/uL (0.90-5.00); Lymphocytes % (A) 34.0 %; MCH 29.4 pg (27.0-32.0); MCHC 32.4 g/dL (32.0-37.0); MCV 90.6 fL (80.0-97.0); Monocytes # (A) 0.44 10*3/uL (0.20-1.00); Monocytes % (A) 7.8 %; Neutrophils # (A) 2.95 10*3/uL (1.80-7.70); Neutrophils % (A) 52.2 %; Platelet Count 393 10*3/uL (140-440); RBC 3.74 10*6/uL (4.40-5.60); RDW 14.8 % (11.5-14.5); WBC 5.65 10*3/uL (4.50-10.00)
[2024-09-29 16:37] VITALS: BP 112/63; PULSE 59; RESP 16; TEMP 97.7
[2024-09-29] MEDS: HYDROmorphone 0.5 MG/0.5 ML SYRINGE IVP STA (16:38)
== END 2024-09-29 17:04 | disposition home or self-care (01) ==
LOC: EC 10:16
DX: N39.0 Urinary tract infection, site not specified (principal); R31.9 Hematuria, unspecified; Z87.891 Personal history of nicotine dependence
CPT/HCPCS: 36415; 80053; 85025; 81001; 87086; 99283; 96374; 96375; 96372; J0696; J1885; J1171